=== PATIENT | female | born 1940 | race Caucasian/White ===

== ENCOUNTER 2020-01-24 09:41 | Emergency (ER) | payer OTHER ==
--- NOTE | 2020-01-24 11:07 | RAD REPORT ---
EXAM DESCRIPTION: RAD - Chest Single View - 01/24/2020 11:00 am CLINICAL HISTORY: DYSPNEA Chest pain. COMPARISON: No comparisons FINDINGS: Portable technique limits examination quality. The lungs are grossly clear. The heart is mildly enlarged in size. No displaced fractures.Degenerativ e changes are present both shoulders. IMPRESSION: No acute intrathoracic process suspected.
--- NOTE | 2020-01-24 11:07 | RAD REPORT ---
EXAM DESCRIPTION: CT - Head Brain Wo Cont - 01/24/2020 10:44 am CLINICAL HISTORY: MENTAL STATUS CHANGE Headache, drowsiness, confusion COMPARISON: Head Brain Wo Cont dated 05/25/2019 TECHNIQUE: All CT scans are performed using dose optimization technique as appropriate and may inclu de automated exposure control or mA/KV adjustment according to patient size. FINDINGS: No intracranial hemorrhage, hydrocephalus or extra-axial fluid collection.Gliosis is seen involving the left temporal lobe as well as the medial left occipital lobe.Post intervention changes in the left temporal lobe with aneurysm clip noted. The paranasal sinuses and mastoids are clear. Left temporal craniotomy. IMPRESSION: No acute intracranial abnormality.
--- OUTSIDE RECORDS SUMMARY | 2020-01-24 11:11 | XMS REPORT | Clinical Summary ---
:1940 Author Organization [facility] Address [address] [place] [address] Care Team Providers Name Role Phone Jose D Wen MD Primary Care Provider Allergies Active Allergy Reactions Severity Noted Date Comments Penicillins Swelling 11/19/2015 Whole body swel ling Medications Medication Sig Dispensed Refills Start Date End Date Status docusate sodium Take 100 mg by 0 Active (COLACE) 100 MG capsule mouth 2 (two) times a day. escitalopram (LEXAPRO) Take 10 mg by 0 Active 10 MG tablet mouth daily. gabapentin (NEURONTIN) Take 300 mg by 0 Active 300 MG capsule mouth 3 (three) times a day. meclizine (ANTIVERT) 25 Take 25 mg by 0 Active mg tablet mouth 3 (three) times a day as needed for dizziness. pantoprazole (PROTONIX) Take 40 mg by 0 Active 40 MG EC tablet mouth 2 (two) times a day. risperiDONE (RisperDAL) Take 2 mg by 0 Active 1 MG tablet mouth nightly. Active Problems Problem Noted Date Delirium 12/25/2015 Mucus plugging of bronchi 12/25/2015 Acute respiratory insufficiency, postoperative 016 Atelectasis 12/20/2015 Chronic a-fib s/p Left atrial appendage clipping 12/18 Obesity, Class II, BMI 35-39.9 11/27/2015 TIA (transient ischemic attack) 03/31/2008 h/o Intracranial Aneurysm s/p clipping 03/31/2008 Hypothyroidism HTN HLD h/o ICH (intracerebral hemorrhage) Cerebral infarction Surgical History Surgery Date Site/Laterality Comments BRAIN SURGERY Anuersym clip ou t HYSTERECTOMY CHOLECYSTECTOMY ATRIAL APPENDAGE LIGATION 12/19/2015 Chest/Left Proced ure: MICS, LEFT ATRIAL APPENDAGE CLIP; Surgeon: Herlinda Wilhelm; Location: [facility]; Ser vice: Cardiovascular; Laterality: Left; Medical devices from this surgery are in the Impla nts section. BRONCHOSCOPY 12/22/2015 Medical History Medical History Date Comments Htn Hypothyroidism h/o Intracranial Aneurysm s/p clipping 2008 Chronic a-fib s/p Left atrial appendage clipping 12/19/2015 h/o ICH (intracerebral hemorrhage) Hld TIA (transient ischemic attack) 2008 (L) [employer] Cva Social History Tobacco Use Types Packs/Day Years Used Date Never Smoker Alcohol Use Drinks/Week oz/Week Comments No Sex Assigned at Date Recorded Not on file Last Filed Vital Signs Not on file Plan of Treatment Health Maintenance Due Date Last Done Comments SHINGLES VACCINES (#1) 1989 65+ PNEUMOCOCCAL VACCINE (1 of 1 - PPSV23) 2004 INFLUENZA VACCINE 10/30/2019 Implants Implanted Type Area Lead Pressman Device Shelf Model / Identifier Expiration Serial / Date Lot System Xclsn Lt Atrl Apndg 50mm - [id number] Surgical N/A: N/A ATR ICURE 09/27/2016 PRO 150 / Implanted: 12/19/2015 at [facility] (Quantity not on file) Implants; / Expanders; +[id number] Extenders; Surgical Wires Results Not on fileafter 01/23/2019 Insurance Payer Benefit Plan / Subscriber ID Effective Dates Phone Addre ss Type Group HUMANA MEDICARE HUMANA MEDICARE [id number] 2008-Present PPO PPO/PFFS/ERS 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
--- OUTSIDE RECORDS SUMMARY | 2020-01-24 11:11 | XMS REPORT | Clinical Summary ---
:1939 Author Organization [facility] Address [address] [place] [address] Care Team Providers Name Role Phone Elizabet Zachariah Primary Care Provider Allergies Active Allergy Reactions Severity Noted Date Comments Penicillins Swelling 10/02/2013 Medications Medication Sig Dispensed Refills Start Date End Date Status diphenoxylate-atropine Take 1 tablet 0 Active (LOMOTIL) 2.5-0.025 mg by mouth 4 per tablet (four) times daily as needed for Diarrhea. pantoprazole (PROTONIX) Take 40 mg by 0 Active 40 MG tablet mouth daily. digoxin (LANOXIN) 0.125 Take 125 mcg by 0 Active MG tablet mouth daily. primidone (MYSOLINE) 50 Take 50 mg by 0 Active MG tablet mouth daily. metoprolol (LOPRESSOR) 50 Take 50 mg by 0 Active MG tablet mouth 2 (two) times daily. gabapentin (NEURONTIN) Take 300 mg by 0 Active 300 MG tablet mouth 3 (three) times daily. atorvastatin (LIPITOR) 40 Take 40 mg by 0 Active MG tablet mouth daily. risperiDONE (RISPERDAL) Take 0.25 mg by 0 Active 0.25 MG tablet mouth nightly. rOPINIRole (REQUIP) 0.25 Take 0.25 mg by 0 Active MG tablet mouth 3 (three) times daily. levothyroxine (SYNTHROID, Take 100 mcg by 0 Active LEVOTHROID) 100 MCG mouth daily. tablet escitalopram (LEXAPRO) 20 Take 20 mg by 0 Active MG tablet mouth daily. naproxen Take 220 mg by 0 Activ e (ALEVE,ANAPROX,MIDOL) 220 mouth 2 (two) MG tablet times daily with breakfast and dinner. acetaminophen (TYLENOL) Take 500 mg by 0 Active 500 MG tablet mouth every 6 (six) hours as needed for Pain. fenofibrate (TRICOR) 145 0 09/14/2013 Active MG tablet amLODIPine (NORVASC) 5 MG 5 mg daily. 0 09/08/2013 Active tablet carvedilol (COREG) 12.5 0 09/14/2013 Active MG tablet omeprazole (PRILOSEC) 40 0 07/29/2013 Active MG capsule hydrochlorothiazide Take 25 mg by 0 Active (HYDRODIURIL) 25 MG mouth daily. tablet sertraline (ZOLOFT) 50 MG Take 50 mg by 0 Active tablet mouth daily. Active Problems Problem Noted Date Atrial fibrillation by electrocardiogram 10/15/2013 Social History Tobacco Use Types Packs/Day Years Used Date Former Smoker Quit: 10/02/18 74 Alcohol Use Drinks/Week oz/Week Comments No Sex Assigned at Date Recorded Not on file Last Filed Vital Signs Not on file Plan of Treatment Not on file Results Not on fileafter 01/23/2019 Insurance Payer Benefit Plan / Subscriber ID Effective Phone Address T e Group Dates HUMANA - HUMANA [id number] 2008-Prese Maps Contracted MEDICARE MGD MEDICARE ADV nt CARE Advance Directives For more information, please contact: [phone] Code Status Date Activated Date Inactivated Comments Full Code 10/14/2013 1:03 AM 10/15/2013 4:49 PM This code status was determined by: Patient Full Code 10/02/2013 7:14 AM 10/02/2013 3:19 PM This code status was determined by: Patient
--- OUTSIDE RECORDS SUMMARY | 2020-01-24 11:12 | XMS REPORT | Continuity of Care Document ---
:1939 Author Organization [facility] t Address [address] [place] [address] Care Team Providers Name Role Phone Behzad AGUILA Primary Care Physician Doctor Unassigned, Name Attending Clinician Unavailable Melecio AGUILA, Gene Attending Clinician Problems Condition Condition Condition Status Onset Resolution Last Treating Co mments Source Name Details Category Date Date Treatment Clinician Date Delirium Delirium Disease Active [place] 12-24 Methodi 00:00: st 00 Mucus Mucus Disease Active [place] plugging plugging 12-24 Method i of bronchi of bronchi 00:00: st 00 Acute Acute Disease Active [place] respirator respirator 12-19 Me thodi y y 00:00: st insufficie insufficie 00 ncy, ncy, postoperat postoperat raj raj Atelectasi Atelectasi Disease Active [place] s s 12-19 Methodi 00:00: st 00 Chronic Chronic Disease Active [place] a-fib s/p a-fib s/p 12-18 Meth ru Left Left 00:00: st atrial atrial 00 appendage appendage clipping clipping Obesity, Obesity, Disease Active [place] Class II, Class II, 8-29 Meth ru BMI BMI 00:00: st 35-39.9 35-39.9 00 Atrial Atrial Disease Active [facility] fibrillati fibrillati 7-18 [facility] - on by 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 00 Ce nter diogram diogram TIA TIA Disease Active [place] (transient (transient 1-01 Me thodi ischemic ischemic 00:00: st attack) attack) 00 h/o h/o Disease Active [place] Intracrani Intracrani 1- Me thodi al al 00:00: st Aneurysm Aneurysm 00 s/p s/p clipping clipping Hypothyroi Hypothyroi Disease Active [place] dism dism Methodi st HTN HTN Disease Active [facility] Methodi st HLD HLD Disease Active [place] Methodi st h/o ICH h/o ICH Disease Active [place] (intracere (intracere Me thodi bral bral st hemorrhage hemorrhage ) ) Cerebral Cerebral Disease Active [place] infarction infarction Me thodi st Allergies, Adverse Reactions, Alerts Allergy Allergy Status Severity Reaction(s) Onset Inactive Treating Comm ents Source Name Type Date Date Clinician Penicill Propensi Active Swelling [facility] [place] ins ty to 8-21 body Methodi adverse 00:00: swelling st reaction 00 s to drug Penicill Propensi Active Swelling [facility] - adverse [facility]: Medical reaction 00 Center s Social History Social Habit Start Date Stop Date Quantity Comments Source Sex Assigned At [facility] Alcohol intake 2014-06-06 2014-06-06 Current [facility] es - 00:00:00 00:00:00 non-drinker of Medical Ce nter alcohol (finding) History of 1973-10-02 Current smoker [facility] es - tobacco use 00:00:00 Medical Aleksander r Smoking Status Start Date Stop Date Source Never smoker [facility] t Former smoker 2014-06-06 00:00:00 2014-06-06 00:00:00 [facility] Medications Ordered Filled Start Stop Current Ordering Indication Dosage Frequency Signature Comments Components Source Medication Medication Date Date Medication? Clinician (SIG) Name Name Terbinafine Terbinafine 2020-0 2020- Yes Kin Taylor 1 tablet [facility] HCl HCl 12-15 [facility] - 00:[facility]: [facility]:00 [facility] 00 :[facility] l [facility]pat[facility] ent Clinics docusate 2015-03 Yes 100mg Q.5D Take 100 [place] sodium 0-03 mg by Methodi (COLACE) 16:21: mouth 2 st 100 MG 14 (two) capsule times a day. escitalopra 2015-03 Yes 10mg QD Take 10 mg Abbott m (LEXAPRO) 0-03 by mouth [facility] ru 10 MG 16:21: daily. st tablet 14 gabapentin 2015-03 Yes 300mg Q.[id number] Take 300 [facility] (NEURONTIN) 0-03 [id number] mg by M ethodi 300 MG 16:21: 3D mouth 3 st capsule 14 (three) times a day. meclizine 2015-03 Yes 25mg Q.[id number] Take 25 mg [facility] (ANTIVERT) 0-03 [id number] by mouth 3 [facility] 25 mg 16:21: 3D (three) st tablet 14 times a day as needed for dizziness. pantoprazol 2015-03 Yes 40mg Q.5D Take 40 mg Abbott e 0-03 by mouth 2 [facility]i (PROTONIX) 16:21: (two) st 40 MG EC 14 times a tablet day. risperiDONE 2015-03 Yes 2mg QD Take 2 mg [place] (RisperDAL) 0-03 by mouth Meth ru 1 MG tablet 16:21: nightly. st 14 diphenoxyla Yes 1{tbl} Take [address] te-atropine 7-18 tablet by [facility] es - (LOMOTIL) 14:49: mouth 4 Medic al 2.5-0.025 44 (four) Center mg per times tablet daily as needed for Diarrhea. pantoprazol Yes 40mg QD Take [address] [facility] e 7-18 by mouth [facility] - (PROTONIX) 14:49: daily. Medic al 40 MG 44 Center tablet digoxin Yes 125ug QD Take 125 [facility] (LANOXIN) 7-18 mcg by [facility] - 0.125 MG 14:49: mouth Medical tablet 44 daily. Center primidone Yes 50mg QD Take [address] (MYSOLINE) 7-18 by mouth [facility] - 50 MG 14:49: daily. Medical tablet 44 Center metoprolol Yes 50mg Q.5D Take [address] (LOPRESSOR) 7-18 by mouth 2 Kizzy kes - 50 MG 14:49: (two) Medical tablet 44 times Center daily. gabapentin 2014-0 Yes 300mg Q.[id number] Take [address] (NEURONTIN) 7-18 [id number] mg by L ukes - 300 MG 14:49: 3D mouth 3 Medical tablet 44 (three) Center times daily. atorvastati 2013-0 Yes 40mg QD Take [address] [facility] n (LIPITOR) 7-18 by mouth Luke s - 40 MG 14:49: daily. Medical tablet 44 Center risperiDONE 0 Yes .25mg QD Take 0.[address] (RISPERDAL) 7-18 mg by [facility] - 0.25 MG 14:49: mouth Medical tablet 44 nightly. Center rOPINIRole 0 Yes .25mg Q.[id number] Take 0.[address] (REQUIP) 7-18 [id number] mg by Luke s - 0.25 MG 14:49: 3D mouth 3 Medical tablet 44 (three) Center times daily. levothyroxi Yes 100ug QD Take [address] ne 7-18 mcg by [facility] - (SYNTHROID, 14:49: mouth Medic al LEVOTHROID) 44 daily. Center 100 MCG tablet escitalopra Yes 20mg QD Take [address] m (LEXAPRO) 7-18 by mouth Luke s - 20 MG 14:49: daily. Medical tablet 44 Center naproxen 0 Yes 220mg Take [address] (ALEVE,ANAP 7-18 mg by [facility] - ALBERTO,MIDOL) 14:49: mouth 2 Medi manny 220 MG 44 (two) Center tablet times daily with breakfast and dinner. acetaminoph 20140 Yes 500mg Take [address] en 7-18 mg by [facility] - (TYLENOL) 14:49: mouth Medical 500 MG 44 every 6 Center tablet (six) hours as needed for Pain. hydrochloro 2014-0 Yes 25mg QD Take [address] thiazide 7-18 by mouth [facility] - (HYDRODIURI 14:49: daily. Medi manny L) 25 MG 44 Center tablet sertraline 0 Yes 50mg QD Take [address] (ZOLOFT) 50 7-18 by mouth Luke s - MG tablet 14:49: daily. Medica l 44 Center fenofibrate Yes [facility] (TRICOR) 6-17 [facility] - 145 MG 00:00: Medical tablet 00 Center carvedilol Yes [facility] (COREG) 6-17 [facility] - 12.5 MG 00:00: Medical tablet 00 Center amLODIPine Yes 5mg QD [address] (NORVASC) 5 6-11 daily. [facility] - MG tablet 00:00: Medical 00 [place] omeprazole Yes [facility] (PRILOSEC) 5-01 [facility] - 40 MG 00:00: Medical capsule 00 [place] + + Yes Sidney Taylor as [facility] Complete Complete [facility] directed [facility] es - Multi Multi Memoria l [facility] ent Clinics Metoprolol Metoprolol Yes Sidney Taylor TAKE [address] Tartrate Tartrate Guardado TABLET BY Kizzy kes - MOUTH Memoria TWICE A l DAY [facility] ent Clinics Carbidopa-L Carbidopa-L Yes Sidney Taylor TAKE [address] [facility] evodopa evodopa Guardado TABLET BY Luke s - MOUTH Memoria THREE l TIMES A [facility] DAY ent Clinics Levothyroxi Levothyroxi Yes Sidney Taylor TAKE [address] [facility] [facility] ne Sodium ne Sodium [facility] TABLET BY [facility] - MOUTH Memoria EVERY DAY l [facility] ent [facility]ics Citalopram Citalopram Yes Sidney Taylor TAKE [address] Hydrobromid Hydrobromid [facility] TABLET BY [facility] - e e MOUTH Memoria EVERY DAY l [facility] ent [facility]ics Donepezil Donepezil Yes Sidney Taylor TAKE [address] HCl HCl [facility] TABLET BY [facility] - MOUTH AT Memoria BEDTIME l [facility] ent [facility]ics Atorvastati Atorvastati Yes Sidney Taylor TAKE [address] [facility] [facility] n Calcium n Calcium [facility] TABLET BY [facility] - MOUTH Memoria EVERY DAY l AT NIGHT [facility]ics Oxybutynin Oxybutynin Yes Sidney Taylor TAKE [address] [facility] Chloride Chloride Guardado TABLET BY Kizzy kes - MOUTH Memoria EVERY DAY l [facility] ent Clinics Immunizations Ordered Filled Immunization Date Status Comments [facility] e Immunization Name Name FLUZONE HIGH DOSE FLUZONE HIGH DOSE 2019-12-[address] [facility] - OVER 65 OVER 65 00:00:00 [facility] Procedures This patient has no known procedures. Plan of Care Planned Activity Planned Date Details Comments Source Future Scheduled 2019-10-30 INFLUENZA VACCINE [place] [facility] 00:00:00 [code = INFLUENZA VACCINE] Future Scheduled 2004 65+ PNEUMOCOCCAL [facility] 00:00:00 VACCINE (1 of 1 - PPSV23) [code = 65+ PNEUMOCOCCAL VACCINE (1 of 1 - PPSV23)] Future Scheduled 1989 SHINGLES VACCINES (#1) [facility] 00:00:00 [code = SHINGLES VACCINES (#1)] Encounters Start End Encounter Admission Attending Care Care Encounter Source Date/Time Date/Time Type Type Clinicians Facility Department ID 2020-01-20 2020-01-20 Outpatient [facility] [id number] [facility] 2020-01-17 2020-01-17 [facility] [id number] [facility] 2020-01-13 2020-01-13 Out[facility] [id number] [facility] 2020-01-10 2020-01-10 Out[facility] [id number] [facility] 2020-01-10 2020-01-10 Out[facility] [id number] [facility] 2020-01-06 2020-01-06 Out[facility] [id number] [facility] 2020-01-04 2020-01-04 Out[facility] [id number] [facility] 2019-12-31 2019-12-31 Out[facility] [id number] [facility] 2019-12-27 2019-12-27 Out[facility] [id number] [facility] 2019-12-27 2019-12-27 Out[facility] [id number] [facility] 2019-12-22 2019-12-22 [id number] 2019-12-22 2019-12-22 [facility] [id number] [facility] 2019-12-22 2019-12-22 [facility] [id number] [facility] 2019-12-16 2019-12-16 [facility] [id number] [facility] 09:[facility]00 09:00:00 [facility] Medicine Outpati ent Clinics 2019-05-18 2019-05-18 Orders Doctor CHAIM [id number] 00:00:00 00:00:00 Only Unassigned, [place] [id number] [place] [facility] [id number] 2019-05-16 2019-05-16 RANJIT Cote [id number] 00:00:00 00:00:00 Kaleb Cunningham [id number] [place] [id number] Professio [id number] nal 092 Building Results This patient has no known results.
--- OUTSIDE RECORDS SUMMARY | 2020-01-24 11:12 | XMS REPORT ---
:1939 Author Organization [employer] Care Team Providers Name Role Phone Sidney Guardado Provider Role Unavailable Allergies, Adverse Reactions, Alerts Substance Reaction Event Type N.K.D.A. Info Not Available Non Drug Allergy Problems Problem Type Condition Code Onset Dates Condition Statu s Assessment Depression F32.9 Active Problem Urinary incontinence due to R39.81 Active cognitive impairment Problem Hyperlipidemia E78.5 Active Assessment Onychomycosis B35.1 Active Problem Hypothyroidism E03.9 Active Assessment Nail dystrophy L60.3 Active Assessment Physical deconditioning R53.81 Acti ve Problem Essential hypertension I10 Activ e Problem Dementia F03.90 Active Problem Overactive bladder N32.81 Active Problem Depression F32.9 Active Problem Obesity (BMI 30-39.9) E66.9 Active Assessment History of hemorrhagic I69.30 Activ e cerebrovascular accident (CVA) with residual deficit Assessment History of stroke Z86.73 Active Assessment Urinary incontinence due to R39.81 Active cognitive impairment Assessment Exertional shortness of breath R06.02 Active Assessment Overactive bladder N32.81 Active Assessment Hyperlipidemia E78.5 Active Assessment Obesity (BMI 30-39.9) E66.9 Active Assessment Dysuria R30.0 Active Assessment Hypothyroidism E03.9 Active Assessment Elevated blood pressure reading R03.0 Active without diagnosis of hypertension Assessment Encounter for administration of Z23 Active vaccine Assessment Dementia F03.90 Active Medications Medication Code Code Instructions Start End Status Dosage System Date Date Terbinafine HCl ND [id number] 250 MG Orally Dec 15, Mar 08, Activ e 1 tablet Once a day 2019 2019 + ND [id number] 0.267 & 373 MG Active as directed Complete Multi Orally Metoprolol ND [id number] 25 MG Oral Active TAKE 1 Tartrate TABLET BY MOUTH TWICE A DAY Carbidopa-Levodo ND [id number] 25-100 MG Oral Acti ve TAKE 1 pa TABLET BY MOUTH THREE TIMES A DAY Levothyroxine ND [id number] 112 MCG Oral Active T ANA 1 Sodium TABLET BY MOUTH EVERY DAY Citalopram [facility] [id number] 20 MG Oral Active TAKE 1 Hydrobromide TABLET BY MOUTH EVERY DAY Donepezil HCl [facility] [id number] 5 MG Oral Active TAKE 1 TABLET BY MOUTH AT BEDTIME Atorvastatin [facility] [id number] 40 MG Oral Active TAKE 1 Calcium TABLET BY MOUTH EVERY DAY AT NIGHT Oxybutynin [facility] [id number] 5 MG Oral Active TAKE 1 Chloride TABLET BY MOUTH EVERY DAY Results No Known Results Immunizations Vaccine Administration Date FLUZONE HIGH DOSE OVER 65 Dec 16, 2019 Summary Purpose [employer]ClinicalWorks Submission
--- OUTSIDE RECORDS SUMMARY | 2020-01-24 11:13 | XMS REPORT ---
:1940 Author Organization [facility] Address [address] [facility]. 300 [place] [address] Care Team Providers Name Role Phone Sidney Guardado Unavailable [phone] PROBLEMS Type Condition ICD9-CM [id number] Onset Condition SNOMED Code Notes Code Code Dates Status Problem Dementia F03.90 Active 14876655 Problem Obesity (BMI E66.9 Active 541056716 30-39.9) Problem Depression F32.9 Active 57008513 Problem Overactive bladder N32.81 Active 365976439 Problem Acquired E03.9 Active 997794578 hypothyroidism Problem Hypothyroidism E03.9 Active 64578373 Problem Hyperlipidemia E78.5 Active 91974153 Problem Essential I10 Active 94496758 hypertension Problem Urinary R39.81 Active 862420481 incontinence due to cognitive impairment ALLERGIES No Known Allergies ENCOUNTERS from 1940 to 2020-01-06 Encounter Location Date Provider Diagnosis [facility] 208 [facility] 200 08 Dec, 2019 Sidney Guardado Frequent urination Family Medicine [place], [place] R35.0 [address] IMMUNIZATIONS Vaccine Route Administration Date Status FLUZONE HIGH DOSE OVER 65 IM Intramuscular Dec 16, 2019 Admin istered SOCIAL HISTORY Tobacco Use: Social History Observation Description Date Details (start date - stop date) Former Smoker Sex Assigned At : Social History Observation Description Sex Assigned At Unknown PHQ9 Question Answer Notes Little interest or pleasure in doing things Several days Feeling down, depressed, or hopeless Several days Trouble falling or staying asleep or sleeping too much Not a t all Feeling tired or having little energy Not at all Poor appetite or overeating Not at all Feeling bad about yourself, or that you are a failure, or No t at all have let yourself or your family down Trouble concentrating on things, such as reading the Not at all newspaper or watching television Moving or speaking so slowly that other people could have No t at all noticed; or the opposite, being so fidgety or restless that you have been moving around a lot more than usual Total Score 2 Interpretation Minimal Depression Thoughts that you would be better off or of hurting Not at all yourself in some way Alcohol Screen Question Answer Notes Did you have a drink containing alcohol in the past year? No Points 0 Interpretation Negative Tobacco Use/Smoking Question Answer Notes Are you a former smoker REASON FOR REFERRAL No Information VITAL SIGNS No information MEDICATIONS Medication SIG (Take, Route, Start Date End Date Status Frequency, Duration) Levothyroxine Sodium 112 MCG TAKE 1 TABLET BY MOUTH Active EVERY DAY Oral for 90 Terbinafine HCl 250 MG 1 tablet Orally Once a 17 Nov, 2019 9 Dec, 2 020 Active day for 84 days + Complete Multi as directed Orally Active 0.267 & 373 MG Carbidopa-Levodopa 25-100 MG TAKE 1 TABLET BY MOUTH Active THREE TIMES A DAY Oral for 90 Citalopram Hydrobromide 20 TAKE 1 TABLET BY MOUTH Active MG EVERY DAY Oral for 30 Levothyroxine Sodium 112 MCG 1 capsule in the morning Dec, Active on an empty stomach Orally Once a day for 90 days Levothyroxine Sodium 112 MCG 1 capsule in the morning Active on an empty stomach Orally Once a day for 90 day(s) Atorvastatin Calcium 40 MG TAKE 1 TABLET BY MOUTH Active EVERY DAY AT NIGHT Oral for 90 Oxybutynin Chloride 5 MG TAKE 1 TABLET BY MOUTH Active EVERY DAY Oral for 90 Metoprolol Tartrate 25 MG TAKE 1 TABLET BY MOUTH Active TWICE A DAY Oral for 90 Donepezil HCl 5 MG TAKE 1 TABLET BY MOUTH AT Active BEDTIME Oral for 90 PROCEDURES No Information RESULTS No Results REASON FOR VISIT urine culture MEDICAL (GENERAL) HISTORY Type Description Date Medical History Depression Medical History Dementia Medical History Essential hypertension Medical History Hypothyroidism Medical History Hyperlipidemia Medical History Overactive bladder Surgical History hysterectomy, total 1967 Surgical History cholecystectomy 1969 Surgical History aneurysm repair 2008 Surgical History atrial appendage clipping Goals Section No Information Health Concerns No Information MEDICAL EQUIPMENT No Information MENTAL STATUS No Information FUNCTIONAL STATUS No Information ASSESSMENTS Encounter Date Diagnosis Notes Dec, Frequent urination (ICD-10 - R35.0) PLAN OF TREATMENT Medication Medication Name Sig Start Date Stop Date Levothyroxine Sodium 112 MCG 1 capsule in the morning on an empty stomach Orally Once a day for 90 day(s) Treatment Notes Test Name Order Date Urine Culture, Routine 2020-01-06 URINALYSIS AUTO W/O SCOPE ([id number]) 2020-01-06 Insurance Providers Payer Name Payer Payer Insured Patient Coverage Coverage End Address Phone Name Relationship to Start Date Silvestre e Insured [employer] [phone] Akbar Grace MEDICARE [id number] [facility] [address]
--- OUTSIDE RECORDS SUMMARY | 2020-01-24 11:13 | XMS REPORT ---
:1940 Author Organization [facility] Address [address] [facility]. 300 [place] [address] Care Team Providers Name Role Phone Sidney Guardado Unavailable [phone] PROBLEMS Type Condition ICD9-CM [id number] Onset Condition SNOMED Code Notes Code Code Dates Status Problem Dementia F03.90 Active 43309973 Problem Obesity (BMI E66.9 Active 250914119 30-39.9) Problem Depression F32.9 Active 36865835 Problem Overactive bladder N32.81 Active 850483737 Problem Acquired E03.9 Active 834931381 hypothyroidism Problem Hypothyroidism E03.9 Active 30927656 Problem Hyperlipidemia E78.5 Active 46376686 Problem Essential I10 Active 23817772 hypertension Problem Urinary R39.81 Active 820689961 incontinence due to cognitive impairment ALLERGIES No Known Allergies ENCOUNTERS from 1940 to 2020-01-04 Encounter Location Date Provider Diagnosis [facility] [address] [facility] Dec, Sidney Guardado Acq uired hypothyroidism Family Medicine [address] [place], [place] [address] IMMUNIZATIONS Vaccine Route Administration Date Status FLUZONE [...] Information RESULTS No Results REASON FOR VISIT No Information MEDICAL (GENERAL) HISTORY Type Description Date Medical History Depression Medical History Dementia Medical History Essential hypertension Medical History Hypothyroidism Medical History Hyperlipidemia Medical History Overactive bladder Surgical History hysterectomy, total 1966 Surgical History cholecystectomy 1970 Surgical History aneurysm repair 2008 Surgical History atrial appendage clipping Goals Section No Information Health Concerns No Information MEDICAL EQUIPMENT No Information MENTAL STATUS No Information FUNCTIONAL STATUS No Information ASSESSMENTS Encounter Date Diagnosis Notes Dec, Acquired hypothyroidism (ICD-10 - E03.9) PLAN OF TREATMENT Medication Medication Name Sig Start Date Stop Date Levothyroxine Sodium 112 MCG 1 capsule in the morning on an empty stomach Orally Once a day for 90 day(s) Insurance Providers Payer Name Payer Payer Insured Patient Coverage Coverage End Address Phone Name Relationship to Start Date Silvestre e Insured [employer] [phone] Akbar Grace MEDICARE [id number] [address]
--- OUTSIDE RECORDS SUMMARY | 2020-01-24 11:13 | XMS REPORT ---
:[address] [facility] Address 210 [facility]. 300 [place] [address] Care Team Providers Name Role Phone Sidney Guardado Unavailable [phone] PROBLEMS Type Condition ICD9-CM [id number] Onset Condition SNOMED Code Notes Code Code Dates Status Problem Dementia F03.90 Active 69503878 Problem Obesity (BMI E66.9 Active 602195179 30-39.9) Problem Depression F32.9 Active 68650399 Problem Overactive bladder N32.81 Active 907485883 Problem Acquired E03.9 Active 117119121 hypothyroidism Problem Hypothyroidism E03.9 Active 34917975 Problem Hyperlipidemia E78.5 Active 29132137 Problem Essential I10 Active 25468775 hypertension Problem Urinary R39.81 Active 960181755 incontinence due to cognitive impairment ALLERGIES No Known Allergies ENCOUNTERS from 1940 to 2019-12-31 Encounter Location Date Provider Diagnosis [facility] 208 [facility] Dec, Sidney Guardado Acq uired hypothyroidism Family Medicine 200 [place], [place] [id number] IMMUNIZATIONS Vaccine Route Administration Date Status FLUZONE [...] Start Date End Date Status Frequency, Duration) Terbinafine HCl 250 MG 1 tablet Orally Once a 17 Nov, 2019 9 Dec, 2 020 Active day for 84 days Oxybutynin Chloride 5 MG TAKE 1 TABLET BY MOUTH Active EVERY DAY Oral for 90 Levothyroxine Sodium 112 MCG TAKE 1 TABLET BY MOUTH Active EVERY DAY Oral for 90 Donepezil HCl 5 MG TAKE 1 TABLET BY MOUTH AT Active BEDTIME Oral for 90 Citalopram Hydrobromide 20 TAKE 1 TABLET BY MOUTH Active MG EVERY DAY Oral for 30 Carbidopa-Levodopa 25-100 MG TAKE 1 TABLET BY MOUTH Active THREE TIMES A DAY Oral for 90 + Complete Multi as directed Orally Active 0.267 & 373 MG Atorvastatin Calcium 40 MG TAKE 1 TABLET BY MOUTH Active EVERY DAY AT NIGHT Oral for 90 Metoprolol Tartrate 25 MG TAKE 1 TABLET BY MOUTH Active TWICE A DAY Oral for 90 Levothyroxine Sodium 112 MCG 1 capsule in the morning Dec, Active on an empty stomach Orally Once a day for 90 days PROCEDURES No Information RESULTS No Results REASON FOR VISIT No Information MEDICAL (GENERAL) HISTORY Type Description Date Medical History Depression Medical History Dementia Medical History Essential hypertension Medical History Hypothyroidism Medical History Hyperlipidemia Medical History Overactive bladder Surgical History hysterectomy, total 1967 Surgical History cholecystectomy 1970 Surgical History aneurysm [...] 1 capsule in the morning on an 2019 empty stomach Orally Once a day for 90 days Treatment Notes Assessment Notes Clinical Notes Acquired hypothyroidism pt request refill of medication. Pt not seen. Insurance Providers Payer Name Payer Payer Insured Patient Coverage Coverage End Address Phone Name Relationship to Start Date Silvestre e Insured [employer] [phone] Akbar Grace MEDICARE [id number] [address] [address]
--- OUTSIDE RECORDS SUMMARY | 2020-01-24 11:13 | XMS REPORT ---
:1940 Author Organization [facility] Address 210 [facility] 300 [place] [address] Care Team Providers Name Role Phone Sidney Guardado Unavailable [phone] PROBLEMS Type Condition ICD9-CM [id number] Onset Condition SNOMED Code Notes Code Code Dates Status Problem Dementia F03.90 Active 47497474 Problem Obesity (BMI E66.9 Active 474210200 30-39.9) Problem Depression F32.9 Active 97768352 Problem Overactive bladder N32.81 Active 733200521 Problem Acquired E03.9 Active 571798319 hypothyroidism Problem Hypothyroidism E03.9 Active 41067639 Problem Hyperlipidemia E78.5 Active 21418234 Problem Essential I10 Active 35216602 hypertension Problem Urinary R39.81 Active 804911065 incontinence due to cognitive impairment ALLERGIES No Known Allergies ENCOUNTERS from 1940 to 2020-01-10 Encounter Location Date Provider Diagnosis [facility] 208 [facility] 200 12 Dec, 2019 Sidney Guardado Acute cystitis Family Medicine [place], [place] without hematuria [phone] N30.00 IMMUNIZATIONS Vaccine Route Administration Date Status FLUZONE [...] Start Date End Date Status Frequency, Duration) Citalopram Hydrobromide 20 TAKE 1 TABLET BY MOUTH Active MG EVERY DAY Oral for 30 Levothyroxine Sodium 112 MCG 1 capsule in the morning Dec, Active on an empty stomach Orally Once a day for 90 days Levothyroxine Sodium 112 MCG 1 capsule in the morning Active on an empty stomach Orally Once a day for 90 day(s) Metoprolol Tartrate 25 MG TAKE 1 TABLET BY MOUTH Active TWICE A DAY Oral for 90 Levothyroxine Sodium 112 MCG TAKE 1 TABLET BY MOUTH Active EVERY DAY Oral for 90 Carbidopa-Levodopa 25-100 MG TAKE 1 TABLET BY MOUTH Active THREE TIMES A DAY Oral for 90 Oxybutynin Chloride 5 MG TAKE 1 TABLET BY MOUTH Active EVERY DAY Oral for 90 + Complete Multi as directed Orally Active 0.267 & 373 MG Atorvastatin Calcium 40 MG TAKE 1 TABLET BY MOUTH Active EVERY DAY AT NIGHT Oral for 90 Donepezil HCl 5 MG TAKE 1 TABLET BY MOUTH Active AT BEDTIME Oral for 90 Terbinafine HCl 250 MG 1 tablet Orally Once a 17 Nov, 2019 9 Dec, 2 020 Active day for 84 days Nitrofurantoin Monohyd Macro 1 capsule Orally bid for Dec, Dec, Active 100 MG 5 days PROCEDURES No Information RESULTS No Results [...] Information ASSESSMENTS Encounter Date Diagnosis Notes Dec, Acute cystitis without hematuria (ICD-10 - N30.00) PLAN OF TREATMENT Medication Medication Name Sig Start Date Stop Date Nitrofurantoin Monohyd Macro 100 1 capsule Orally bid for 5 12 O 2019Dec, MG days Treatment Notes Assessment Notes Clinical Notes Acute cystitis without hematuria UA showed postive LE with U C showing 100K citrobacter CFU with sensitivity to multiple abx. pt notified regarding results and medication sent to pharmacy. Insurance Providers Payer Name Payer Payer Insured Patient Coverage Coverage End Address Phone Name Relationship to Start Date Silvestre e Insured [employer] [phone] Lesly,Gene self MEDICARE [id number] [facility] [address]
--- OUTSIDE RECORDS SUMMARY | 2020-01-24 11:13 | XMS REPORT ---
:1940 Author Organization [facility] Address 210 [facility] 300 [place] [address] Care Team Providers Name Role Phone Sidney Guardado Unavailable [phone] PROBLEMS Type Condition ICD9-CM [id number] Onset Condition SNOMED Code Notes Code Code Dates Status Problem Urinary R39.81 Active 331688202 incontinence due to cognitive impairment Problem Overactive bladder N32.81 Active 211044950 Problem Hyperlipidemia E78.5 Active 71930293 Problem Essential I10 Active 26659038 hypertension Problem Dementia F03.90 Active 79757481 Problem Obesity (BMI E66.9 Active 293604036 30-39.9) Problem Depression F32.9 Active 56941781 Problem Hypothyroidism E03.9 Active 52301725 ALLERGIES No Known Allergies ENCOUNTERS from 1940 to 2019-12-29 Encounter Location Date Provider Diagnosis [facility] 210 [facility] 300 28 Nov, 2019 Sidney Guardado Medicare annual Family Medicine [place], [place] wellness visit, [phone] subsequent Z00. 00 IMMUNIZATIONS Vaccine Route Administration Date Status FLUZONE [...] REASON FOR REFERRAL No Information VITAL SIGNS Height 63 in Nov, Weight 207.0 lbs Nov, Temperature 98.1 degrees Fahrenheit Nov, BMI 36.66 kg/m2 Nov, Oximetry 94 % Nov, Blood pressure systolic 148 mm Hg Nov, Blood pressure diastolic 83 mm Hg Nov, MEDICATIONS Medication SIG (Take, Route, Start Date End Date Status Frequency, Duration) Citalopram Hydrobromide 20 TAKE 1 TABLET BY MOUTH Active MG EVERY DAY Oral for 30 Levothyroxine Sodium 112 MCG TAKE 1 TABLET BY MOUTH Active EVERY DAY Oral for 90 Oxybutynin Chloride 5 MG TAKE 1 TABLET BY MOUTH Active EVERY DAY Oral for 90 Metoprolol Tartrate 25 MG TAKE 1 TABLET BY MOUTH Active TWICE A DAY Oral for 90 + Complete Multi as directed Orally Active 0.267 & 373 MG Donepezil HCl 5 MG TAKE 1 TABLET BY MOUTH AT Active BEDTIME Oral for 90 Terbinafine HCl 250 MG 1 tablet Orally Once a 17 Nov, 2019 9 Dec, 2 020 Active day for 84 days Atorvastatin Calcium 40 MG TAKE 1 TABLET BY MOUTH Active EVERY DAY AT NIGHT Oral for 90 Carbidopa-Levodopa 25-100 MG TAKE 1 TABLET BY MOUTH Active THREE TIMES A DAY Oral for 90 PROCEDURES No Information RESULTS No Results REASON FOR VISIT 1 Medicare Wellness Exam [phone] MEDICAL (GENERAL) HISTORY Type Description Date Medical [...] No Information ASSESSMENTS Encounter Date Diagnosis Notes Nov, Medicare annual wellness visit, daniela garcía (ICD-10 - Z00.00) PLAN OF TREATMENT Next Appt Details SUBSEQUENT ANNUAL WELLNESS VISIT 1 YEAR Reason: Provider Name:Sidney Guardado, 2019-12-31 01 :00:00 PM, [address], [address], [place], [address], Insurance Providers Payer Name Payer Payer Insured Patient Coverage Coverage End Address Phone Name Relationship to Start Date Silvestre e Insured [employer] [phone] Akbar Grace self MEDICARE [id number] [address] [facility] [address]
--- OUTSIDE RECORDS SUMMARY | 2020-01-24 11:14 | XMS REPORT ---
:[address] [facility] Address 210 [facility] 300 [place] [address] Care Team Providers Name Role Phone Sidney Guardado Unavailable [phone] PROBLEMS Type Condition ICD9-CM [id number] Onset Condition SNOMED Code Notes Code Code Dates Status Problem Dementia F03.90 Active 28938806 Problem Obesity (BMI E66.9 Active 438400555 30-39.9) Problem Depression F32.9 Active 84038514 Problem Overactive bladder N32.81 Active 961417792 Problem Acquired E03.9 Active 695384972 hypothyroidism Problem Hypothyroidism E03.9 Active 20680306 Problem Hyperlipidemia E78.5 Active 21323470 Problem Essential I10 Active 37668592 hypertension Problem Urinary R39.81 Active 074322271 incontinence due to cognitive impairment ALLERGIES No Known Allergies ENCOUNTERS from 1940 to 2020-01-11 Encounter Location Date Provider Diagnosis [facility] 208 [facility] 200 [place] 12 Dec, 2019 [place] [address] IMMUNIZATIONS Vaccine Route Administration Date Status FLUZONE [...] Information RESULTS No Results REASON FOR VISIT Urine Culture MEDICAL (GENERAL) HISTORY Type Description Date Medical [...] No Information FUNCTIONAL STATUS No Information ASSESSMENTS No Information PLAN OF TREATMENT Medication Medication Name Sig Start Date Stop Date Nitrofurantoin Monohyd Macro 100 1 capsule Orally bid for 5 12 O 2019Dec, MG days Insurance Providers Payer Name Payer Payer Insured Patient Coverage Coverage End Address Phone Name Relationship to Start Date Silvestre e Insured AETNA [phone] Akbar Grace MEDICARE [id number] [address] [address]
--- OUTSIDE RECORDS SUMMARY | 2020-01-24 11:14 | XMS REPORT ---
:1940 Author Organization [facility] Address 210 [facility] 300 [place] [address] Care Team Providers Name Role Phone Sidney Guardado Unavailable [phone] PROBLEMS Type Condition ICD9-CM UIB34-YL Onset Condition SNOMED Code Notes Code Code Dates Status Problem Dementia F03.90 Active 06666164 Problem Obesity (BMI E66.9 Active 462450563 30-39.9) Problem Depression F32.9 Active 50171764 Problem Overactive bladder N32.81 Active 575043673 Problem Acquired E03.9 Active 980866462 hypothyroidism Problem Hypothyroidism E03.9 Active 34791155 Problem Hyperlipidemia E78.5 Active 95865819 Problem Essential I10 Active 52720571 hypertension Problem Urinary R39.81 Active 122441908 incontinence due to cognitive impairment ALLERGIES No Known Allergies ENCOUNTERS from 1940 to 2020-01-20 Encounter Location Date Provider Diagnosis [facility] 208 [facility] 200 [place] Dec, [place] [address] IMMUNIZATIONS Vaccine Route Administration Date Status FLUZONE [...] Start Date End Date Status Frequency, Duration) Atorvastatin Calcium 40 MG TAKE 1 TABLET BY MOUTH Active EVERY DAY AT NIGHT Oral for 90 Donepezil HCl 5 MG TAKE 1 TABLET BY MOUTH AT Active BEDTIME Oral for 90 Terbinafine HCl 250 MG 1 tablet Orally Once a 17 Nov, 2019 Dec, 2 020 Active day for 84 days + Complete Multi as directed Orally Active 0.267 & 373 MG Levothyroxine Sodium 112 MCG 1 capsule in the morning Dec, Active on an empty stomach Orally Once a day for 90 days Levothyroxine Sodium 112 MCG TAKE 1 TABLET BY MOUTH Active EVERY DAY Oral for 90 Citalopram Hydrobromide 20 TAKE 1 TABLET BY MOUTH Active MG EVERY DAY Oral for 30 Metoprolol Tartrate 25 MG TAKE 1 TABLET BY MOUTH Active TWICE A DAY Oral for 90 days Carbidopa-Levodopa 25-100 MG TAKE 1 TABLET BY MOUTH Active THREE TIMES A DAY Oral for 90 Oxybutynin Chloride 5 MG TAKE 1 TABLET BY MOUTH Active EVERY DAY Oral for 90 Levothyroxine Sodium 112 MCG 1 capsule in the morning Active on an empty stomach Orally Once a day for 90 day(s) PROCEDURES No Information RESULTS No Results REASON FOR VISIT Urine Culture MEDICAL (GENERAL) HISTORY Type Description Date Medical History Depression Medical History Dementia Medical History Essential hypertension Medical History Hypothyroidism Medical History Hyperlipidemia Medical History Overactive bladder Surgical History hysterectomy, total 1966 Surgical History cholecystectomy 1969 Surgical History aneurysm repair 2008 Surgical History atrial appendage clipping Goals Section No Information Health Concerns No Information MEDICAL EQUIPMENT No Information MENTAL STATUS No Information FUNCTIONAL STATUS No Information ASSESSMENTS No Information PLAN OF TREATMENT Medication Medication Name Sig Start Date Stop Date Metoprolol Tartrate 25 MG TAKE 1 TABLET BY MOUTH TWICE A DAY Oral for 90 days Insurance Providers Payer Name Payer Payer Insured Patient Coverage Coverage End Address Phone Name Relationship to Start Date Silvestre e Insured AETNA [phone] Akbar Grace MEDICARE [id number] [address] [address]
--- OUTSIDE RECORDS SUMMARY | 2020-01-24 11:14 | XMS REPORT ---
:1940 Author Organization [facility] Address 210 [facility]. 300 [place] [address] Care Team Providers Name Role Phone Sidney Guardado Unavailable [phone] PROBLEMS Type Condition ICD9-CM MZE84-VP Onset Condition SNOMED Code Notes Code Code Dates Status Problem Dementia F03.90 Active 73588093 Problem Obesity (BMI E66.9 Active 424053371 30-39.9) Problem Depression F32.9 Active 11525627 Problem Overactive bladder N32.81 Active 004806071 Problem Acquired E03.9 Active 561887429 hypothyroidism Problem Hypothyroidism E03.9 Active 34518558 Problem Hyperlipidemia E78.5 Active 14819090 Problem Essential I10 Active 98646531 hypertension Problem Urinary R39.81 Active 719420076 incontinence due to cognitive impairment ALLERGIES No Known Allergies ENCOUNTERS from 1940 to 2020-01-17 Encounter Location Date Provider Diagnosis [facility] 208 [facility] 200 19 Dec, 2019 Sidney Guardado Abnormal urinalysis Family Medicine [place], [place] R82.90 [address] IMMUNIZATIONS Vaccine Route Administration Date Status FLUZONE [...] 1 tablet Orally Once a 17 Nov, 2019Feb, 2 020 Active day for 84 days [...] RESULTS No Results REASON FOR VISIT Urine MEDICAL (GENERAL) HISTORY Type Description Date Medical [...] Information ASSESSMENTS Encounter Date Diagnosis Notes Dec, Abnormal urinalysis (ICD-10 - R82.90) PLAN OF TREATMENT Medication Medication Name Sig Start Date Stop Date Metoprolol Tartrate 25 MG TAKE 1 TABLET BY MOUTH TWICE A DAY Oral for 90 days Treatment Notes Test Name Order Date Urine Culture, Routine 2020-01-17 URINALYSIS AUTO W/O SCOPE ([id number]) 2020-01-17 Insurance Providers Payer Name Payer Payer Insured Patient Coverage Coverage End Address Phone Name Relationship to Start Date Silvestre e Insured [employer] [phone] Akbar Grace MEDICARE [id number] [address] [phone]
--- OUTSIDE RECORDS SUMMARY | 2020-01-24 11:14 | XMS REPORT ---
:1940 Author Organization [facility] Address [address] [facility] [address] [place] [address] Care Team Providers Name Role Phone Sidney Guardado Unavailable [phone] PROBLEMS Type Condition ICD9-CM [id number] Onset Condition SNOMED Code Notes Code Code Dates Status Problem Dementia F03.90 Active 14542185 Problem Obesity (BMI E66.9 Active 880964319 30-39.9) Problem Depression F32.9 Active 32336900 Problem Overactive bladder N32.81 Active 162242091 Problem Acquired E03.9 Active 662915654 hypothyroidism Problem Hypothyroidism E03.9 Active 48085768 Problem Hyperlipidemia E78.5 Active 83907949 Problem Essential I10 Active 89646047 hypertension Problem Urinary R39.81 Active 209459107 incontinence due to cognitive impairment ALLERGIES No Known Allergies ENCOUNTERS from 1940 to 2020-01-14 Encounter Location Date Provider Diagnosis [facility] [address] [facility] [address] Dec, 2019 [place] [address] IMMUNIZATIONS Vaccine Route Administration Date Status FLUZONE [...] EVERY DAY AT NIGHT Oral for 90 Citalopram Hydrobromide 20 TAKE 1 TABLET BY MOUTH Active MG EVERY DAY Oral for 30 + Complete Multi as directed Orally Active 0.267 & 373 MG Donepezil HCl 5 MG TAKE 1 TABLET BY MOUTH Active AT BEDTIME Oral for 90 Levothyroxine Sodium 112 MCG 1 capsule in the morning Dec, Active on an empty stomach Orally Once a day for 90 days Levothyroxine Sodium 112 MCG TAKE 1 TABLET BY MOUTH Active EVERY DAY Oral for 90 Nitrofurantoin Monohyd Macro 1 capsule Orally bid for Dec, Dec, Active 100 MG 5 days Metoprolol Tartrate 25 MG TAKE 1 TABLET BY MOUTH Active TWICE A DAY Oral for 90 days Terbinafine HCl 250 MG 1 tablet Orally Once a 17 Nov, 2019 9 Dec, 2 020 Active day for 84 days Carbidopa-Levodopa 25-100 MG TAKE 1 TABLET BY MOUTH Active THREE TIMES A DAY Oral for 90 Oxybutynin Chloride 5 MG TAKE 1 TABLET BY MOUTH Active EVERY DAY Oral for 90 Levothyroxine Sodium 112 MCG 1 capsule in the morning Active on an empty stomach Orally Once a day for 90 day(s) PROCEDURES No Information RESULTS No Results REASON FOR VISIT Rx refill MEDICAL (GENERAL) HISTORY Type Description Date Medical [...] for 5 12 O 2019Dec, MG days Metoprolol Tartrate 25 MG TAKE 1 TABLET BY MOUTH TWICE A DAY Oral for 90 days Insurance Providers Payer Name Payer Payer Insured Patient Coverage Coverage End Address Phone Name Relationship to Start Date Silvestre e Insured [employer] [phone] Akbar Grace self MEDICARE [id number] [address]
[2020-01-24 11:29] LABS: Protime INR 1.06
[2020-01-24 11:49] LABS: ALT/SGPT 9 U/L (12-78); AST/SGOT 22 U/L (15-37); Albumin 3.8 g/dL (3.4-5.0); Alkaline Phosphatase 84 U/L (45-117); BUN Blood Urea Nitrogen 10 mg/dL (7-18); Bicarbonate 30 mmol/L (21-32); Bilirubin Direct 0.1 mg/dL (0-0.2); Bilirubin Total 0.5 mg/dL (0.2-1.0); Glucose Level 101 mg/dL (74-106); Magnesium 2.1 mg/dL (1.8-2.4); NT PRO-BNP 1950 pg/mL (<450); Potassium 4.3 mmol/L (3.5-5.1); Protein, Total 7.8 g/dL (6.4-8.2); Sodium Level 138 mmol/L (136-145); Troponin (Emerg Dept Use Only) < 0.02 ng/mL (0.0-0.045)
[2020-01-24 12:20] LABS: Urine Blood TRACE (NEG); Urine Glucose NEGATIVE (NEG); Urine Protein NEGATIVE (NEG)
[2020-01-24 12:21] LABS: Urine Bacteria 20-50 /HPF (<20); Urine Culture Reflex Order REFLEXED; Urine RBC <5 /HPF (NONE SEEN)
[2020-01-24 12:21] LABS: Absolute Lymphocytes (CBC) 2.4 K/uL (0.7-4.9); Basophils % 1.3 % (0-1.3); Lymphocytes % 33.2 % (15.3-44.8); MPV 8.8 fL (7.6-11.3); RBC Red Blood Cell Count 4.15 M/uL (3.86-4.86)
--- NOTE | 2020-01-24 13:04 | ER ---
Nurse's Notes [facility] Name: Kari Grace Age: 79 yrs Sex: Female : 1940 Arrival Date: 01/24/2020 Time: 09:42 Bed 2 Private MD: Diagnosis: Altered mental status, unspecified;Acute cystitis Presentation: 01/23 10:10 Chief complaint: Pt's daughter states "she's been confused for a month now and it keeps aa5 getting worse and they keep treating her fot UTIs and the last time it was tested was on and her urine was clear". 10:10 Coronavirus screen: Client denies travel out of the [place] in the last 14 days. At this aa5 time, the client does not indicate any symptoms associated with coronavirus-19. Ebola Screen: Patient negative for fever greater than or equal to 101.5 degrees Fahrenheit, and additional compatible Ebola Virus Disease symptoms. Initial Sepsis Screen: Does the patient meet any 2 criteria? No. Patient's initial sepsis screen is negative. Does the patient have a suspected source of infection? No. Patient's initial sepsis screen is negative. Risk Assessment: Do you want to hurt yourself or someone else? Patient reports no desire to harm self or others. Onset of symptoms was December 2019. 10:10 Acuity: JUNI 3 aa5 10:10 Method Of Arrival: Wheelchair aa5 Historical: - Allergies: 10:10 PENICILLINS; aa5 - Home Meds: 10:42 metoprolol tartrate 25 mg Oral tab 1 tab 2 times per day [Active]; atorvastatin 40 mg jl7 oral tab 1 tab once daily [Active]; levothyroxine 112 mcg tab 1 tab once daily [Active]; citalopram 20 mg tab 1 tab once daily [Active]; oxybutynin chloride 5 mg Oral tr24 1 tab once daily [Active]; donepezil 5 mg oral TbDL 1 tab once daily [Active]; carbidopa-levodopa 25-100 mg Oral TbER 1 tab 3 times per day [Active]; - PMHx: 10:10 TIA; Brain Bleed; aa5 10:45 CVA; 2018; Dementia; brain aneurysm; tw2 - PSHx: 10:45 arterial appendage clipping brain 2016; tw2 - Immunization history:: Adult Immunizations up to date. - Social history:: Smoking status: Patient denies any tobacco usage or history of. Screenin:24 Abuse screen: Denies threats or abuse. Nutritional screening: No deficits noted. tw2 Tuberculosis screening: No symptoms or risk factors identified. Fall Risk Secondary diagnosis (15 points) impaired mobility. Assessment: 10:13 Reassessment: pt still in triage at this time. tw2 10:20 General: Appears in no apparent distress. obese, Behavior is calm, cooperative, tw2 appropriate for age. Pain: Denies pain. Neuro: Level of Consciousness is awake, obeys commands, Oriented to person. Cardiovascular: Heart tones S1 S2 Patient's skin is warm and dry. Respiratory: Airway is patent Respiratory effort is even, unlabored, Respiratory pattern is regular, symmetrical, Breath sounds are clear bilaterally. GI: No signs and/or symptoms were reported involving the gastrointestinal system. Abdomen is round non-distended, obese, Bowel sounds present X 4 quads. : Parent/caregiver report the patient having pt spouse states "she has frequent urinary tract infections". EENT: No signs and/or symptoms were reported regarding the EENT system. Derm: No signs and/or symptoms reported regarding the dermatologic system. Skin is fragile, is thin, Skin is dry. Musculoskeletal: Range of motion: intact in all extremities. 10:26 Reassessment: provider at bedside at this time. tw2 14:12 Reassessment: Patient appears in no apparent distress at this time. No changes from tw2 previously documented assessment. Patient and/or family updated on plan of care and expected duration. Pain level reassessed. Vital Signs: 10:10 BP 129 / 97; Pulse 73; Resp 20 S; Temp 98.2(O); Pulse Ox 95% on R/A; aa5 11:18 BP 146 / 88; Pulse 71; Resp 16; Pulse Ox 96% on R/A; tw2 12:34 BP 143 / 79; Pulse 59; Resp 18; Temp 97.9(O); Pulse Ox 97% on R/A; mh5 13:30 BP 152 / 88; Pulse 69; Resp 17; Pulse Ox 95% on R/A; tw2 14:12 BP 148 / 72; Pulse 88; Resp 16; Pulse Ox 99% on R/A; tw2 ED Course: 09:42 Patient arrived in ED. ag5 10:06 Charisse Jasmine, RN is Primary Nurse. tw2 10:09 Deepak Echevarria PA is PHCP. jr8 10:09 Zain Adams MD is Attending Physician. jr8 10:24 Bed in low position. Call light in reach. Side rails up X2. Adult w/ patient. Cardiac tw2 monitor on. Pulse ox on. NIBP on. Warm blanket given. Pillow given. 10:24 Arm band placed on. tw2 10:29 Triage completed. aa5 10:44 CT Head Brain wo Cont In Process Unspecified. EDMS 11:00 XRAY Chest (1 view) In Process Unspecified. EDMS 11:12 Missed attempt(s): 20 gauge in right forearm. Bleeding controlled, band aid applied, tw2 catheter tip intact. Missed attempt(s): 22 gauge in right forearm. blood collected. Bleeding controlled, band aid applied, catheter tip intact. 11:45 Urine Microscopic Only Sent. 5 14:22 No provider procedures requiring assistance completed. tw2 14:22 Patient did not have IV access during this emergency room visit. pt did not have iv tw2 during this ER visit. Administered Medications: 14:00 Not Given (md aware - no iv at this time): Rocephin 2 grams IV at calculated rate once; tw2 Given slow IV push per pharmarcy instructions 14:00 Drug: Rocephin (cefTRIAXone) 1 grams Route: IM; Site: left deltoid; tw2 14:13 Follow up: Response: No adverse reaction tw2 Outcome: 13:03 Discharge ordered by . 8 14:22 Discharged to home via wheelchair, with family. tw2 14:22 Condition: stable 14:22 Discharge instructions given to patient, family, Instructed on discharge instructions, follow up and referral plans. medication usage, Demonstrated understanding of instructions, follow-up care, medications, Prescriptions given X 1. 14:23 Patient left the ED. tw2 Addendum: 01/27/2020 07:16 Addendum: Culture Results: Positive urine culture. No further action required. Bacteria e b sensitive to prescribed antibiotic. Signatures: Dispatcher [employer] EDMS Nahomy Wing RN RN aa5 Deepak Echevarria PA PA jr8 Charisse Jasmine RN RN tw2 Julia Corbin 5 Jairo Mckeon RN RN jl7 Sima Valedz Ajare 5
--- NOTE | 2020-01-24 13:04 | EDPHYS ---
Physician Documentation [facility] Name: Kari Grace Age: 79 yrs Sex: Female : 1940 Arrival Date: 01/24/2020 Time: 09:42 Bed 2 Private MD: BRIANNA Physician Zain Adams HPI: 01/23 12:19 This 79 yrs old Female presents to ER via Wheelchair with complaints of jr8 Urinary Problem, Confusion. 12:19 The patient presents for progressive confusion/disorientation over the past 2 months. jr8 Family reports that the patient has a history of UTI's, but had normal UA results at her PCP visit 1 week ago. They state that she has been wandering around the house, talking to herself, and become more forgetful. They report a history of a brain bleed and multiple TIA's taking place 4-6 years ago. Denies fever, chest pain, or any other complaints.. Historical: - Allergies: 10:10 PENICILLINS; aa5 - Home Meds: 10:42 metoprolol tartrate 25 mg Oral tab 1 tab 2 times per day [Active]; atorvastatin 40 mg jl7 oral tab 1 tab once daily [Active]; levothyroxine 112 mcg tab 1 tab once daily [Active]; citalopram 20 mg tab 1 tab once daily [Active]; oxybutynin chloride 5 mg Oral tr24 1 tab once daily [Active]; donepezil 5 mg oral TbDL 1 tab once daily [Active]; carbidopa-levodopa 25-100 mg Oral TbER 1 tab 3 times per day [Active]; - PMHx: 10:10 TIA; Brain Bleed; aa5 10:45 CVA; 2018; Dementia; brain aneurysm; tw2 - PSHx: 10:45 arterial appendage clipping brain 2016; tw2 - Immunization history:: Adult Immunizations up to date. - Social history:: Smoking status: Patient denies any tobacco usage or history of. ROS: 12:17 Unable to obtain ROS due to baseline dementia. jr8 Exam: 12:17 Eyes: Pupils equal round and reactive to light, extra-ocular motions intact. Lids and jr8 lashes normal. Conjunctiva and sclera are non-icteric and not injected. Cornea within normal limits. Periorbital areas with no swelling, redness, or edema. ENT: Nares patent. No nasal discharge, no septal abnormalities noted. Tympanic membranes are normal and external auditory canals are clear. Oropharynx with no redness, swelling, or masses, exudates, or evidence of obstruction, uvula midline. Mucous membranes moist. Neck: Trachea midline, no thyromegaly or masses palpated, and no cervical lymphadenopathy. Supple, full range of motion without nuchal rigidity, or vertebral point tenderness. No Meningismus. Cardiovascular: Regular rate and rhythm with a normal S1 and S2. No gallops, murmurs, or rubs. Normal PMI, no JVD. No pulse deficits. Respiratory: Lungs have equal breath sounds bilaterally, clear to auscultation and percussion. No rales, rhonchi or wheezes noted. No increased work of breathing, no retractions or nasal flaring. Abdomen/GI: Soft, non-tender, with normal bowel sounds. No distension or tympany. No guarding or rebound. No evidence of tenderness throughout. Back: No spinal tenderness. No costovertebral tenderness. Full range of motion. Skin: Warm, dry with normal turgor. Normal color with no rashes, no lesions, and no evidence of cellulitis. MS/ Extremity: Pulses equal, no cyanosis. Neurovascular intact. Full, normal range of motion. Neuro: Awake and alert, GCS 15, oriented to person, place, time, and situation. Cranial nerves II-XII grossly intact. Motor strength 5/5 in all extremities. Sensory grossly intact. Vital Signs: 10:10 BP 129 / 97; Pulse 73; Resp 20 S; Temp 98.2(O); Pulse Ox 95% on R/A; aa5 11:18 BP 146 / 88; Pulse 71; Resp 16; Pulse Ox 96% on R/A; tw2 12:34 BP 143 / 79; Pulse 59; Resp 18; Temp 97.9(O); Pulse Ox 97% on R/A; mh5 13:30 BP 152 / 88; Pulse 69; Resp 17; Pulse Ox 95% on R/A; tw2 14:12 BP 148 / 72; Pulse 88; Resp 16; Pulse Ox 99% on R/A; tw2 MDM: 10:09 Patient medically screened. jr8 13:01 Data reviewed: vital signs, nurses notes, lab test result(s), EKG, radiologic studies, [facility] CT scan, plain films. Data interpreted: Pulse oximetry: on room air is 97 %. Interpretation: normal. Counseling: I had a detailed discussion with the patient and/or guardian regarding: the historical points, exam findings, and any diagnostic results supporting the discharge/admit diagnosis, lab results, radiology results, the need for outpatient follow up, a family practitioner, to return to the emergency department if symptoms worsen or persist or if there are any questions or concerns that arise at home. ED course: Discussed with family that the increased AMS likely due to UTI. Patient without signs of Sepsis or SIRS. Hemodynamically stable. No falls. Good family care at home. Will d/c home on Abx. Family knows to come back if with fevers or worsening symptoms . 01/23 10:32 Order name: Basic Metabolic Panel; Complete Time: 12:17 [facility] 01/23 10:32 Order name: CBC with Diff; Complete Time: 12:58 [facility] 01/23 10:32 Order name: LFT's; Complete Time: 12:17 [facility] 01/23 10:32 Order name: Magnesium; Complete Time: 12:17 [facility] 01/23 10:32 Order name: NT PRO-BNP; Complete Time: 12:17 [facility] 01/23 10:32 Order name: PT-INR; Complete Time: 12:17 [facility] 01/23 10:32 Order name: Troponin (emerg Dept Use Only); Complete Time: 12:17 [facility] 01/23 10:32 Order name: XRAY Chest (1 view); Complete Time: 12:17 [facility] 01/23 10:32 Order name: Urine Microscopic Only; Complete Time: 12:58 [facility] 01/23 10:32 Order name: CT Head Brain wo Cont; Complete Time: 12:17 [facility] 01/23 12:04 Order name: Urine Dipstick--Ancillary (enter results); Complete Time: 12:58 bd 01/23 12:23 Order name: Urine Culture [facility] 01/23 10:32 Order name: EKG; Complete Time: 10:32 [facility] 01/23 10:32 Order name: Cardiac monitoring; Complete Time: 10:58 [facility] 01/23 10:32 Order name: EKG - Nurse/Tech; Complete Time: 10:59 [facility] 01/23 10:32 Order name: O2 Per Protocol; Complete Time: 10:33 8 01/23 10:32 Order name: O2 Sat Monitoring; Complete Time: 10:33 01/23 10:32 Order name: Urine Dipstick-Ancillary (obtain specimen); Complete Time: 11:45 8 01/23 11:20 Order name: Straight Cath - Urine; Complete Time: 11:20 2 01/23 11:31 Order name: Labs - recollect needed: recollect cbc; Complete Time: 14:13 bd Administered Medications: 14:00 Not Given (md aware - no iv at this time): Rocephin 2 grams IV at calculated rate once; tw2 Given slow IV push per pharmarcy instructions 14:00 Drug: Rocephin (cefTRIAXone) 1 grams Route: IM; Site: left deltoid; tw2 14:13 Follow up: Response: No adverse reaction tw2 Disposition: 15:58 Co-signature as Attending Physician, Zain Adams MD I agree with the assessment and argelia plan of care. Disposition: 01/24/20 13:03 Discharged to Home. Impression: Altered mental status, unspecified, Acute cystitis. - Condition is Stable. - Discharge Instructions: Urinary Tract Infection, Adult. - Prescriptions for Cipro 500 mg Oral Tablet - take 1 tablet by ORAL route every 12 hours for 7 days; 14 tablet. - Medication Reconciliation Form, Thank You Letter, Antibiotic Education, Prescription Opioid Use, SBAR form form. - Follow up: Private Physician; When: 2 - 3 days; Reason: Recheck today's complaints, Continuance of care, Re-evaluation by your physician. - Problem is new. - Symptoms have improved. Signatures: Dispatcher [employer] Anita Mcgee Corey, MD MD cha Calderon, Audri, RN RN aa5 Deepak Echevarria PA PA jr8 Charisse Jasmine RN RN tw2 Jairo Mckeon RN RN jl7 Corrections: (The following items were deleted from the chart) 14:23 13:03 01/24/2020 13:03 Discharged to Home. Impression: Altered mental status, tw2 unspecified; Acute cystitis. Condition is Stable. Forms are SBAR form, Medication Reconciliation Form, Thank You Letter, Antibiotic Education, Prescription Opioid Use. Follow up: Private Physician; When: 2 - 3 days; Reason: Recheck today's complaints, Continuance of care, Re-evaluation by your physician. Problem is new. Symptoms have improved. jr8
[2020-01-24] MEDS ORDERED: CEFTRIAXONE 1000 MG/VIAL ONE (14:11)
[2020-01-24] MEDS ORDERED: WATER FOR INJ,STERILE 10 ML ONE (14:11)
[2020-01-24 14:49] VITALS: TEMP 97.9
[2020-01-24 14:54] VITALS: BP 148/72; O2SAT 99
--- NOTE | 2020-01-25 10:10 | EKG ---
Test Date: 2020-01-24 Test Time: 11:13:48 Inspector Golf Ball: GUTIERREZ MEASUREMENT RESULTS: Intervals: Rate: 73 FL: QRSD: 120 QT: 472 QTc: 519 [place]: P: FL: QRS: 14 T: 251 INTERPRETIVE STATEMENTS: Atrial fibrillation with a competing junctional pacemaker Incomplete left bundle branch block ST & T wave abnormality, consider lateral ischemia or digitalis effect Abnormal ECG Compared to ECG 11/13/2006 14:58:33 Left bundle-branch block now present ST (T wave) deviation now present Sinus rhythm no longer present T-wave abnormality no longer present Myocardial infarct finding no longer present Possible ischemia still present Electronically Signed On 01-25-20 10:06:53 CDT by Specner Obrien
== END 2020-01-24 14:23 | disposition home or self-care (01) ==
LOC: ER 09:41
DX: N30.00 Acute cystitis without hematuria (principal); Z86.73 Personal history of transient ischemic attack (TIA), and cerebral infarction without residual deficits; Z88.0 Allergy status to penicillin
CPT/HCPCS: 36415; 70450; 71045; 80048; 80076; 81003; 81015; 83735; 83880; 84484; 85025; 85610; 87077; 87086; 87088; 87186; 93005; 96372; 99284

== ENCOUNTER 2020-07-10 13:49 | Observation (INO) | payer OTHER ==
--- OUTSIDE RECORDS SUMMARY | 2020-07-10 13:53 | XMS REPORT | Continuity of Care Document ---
:1940 Author Organization [facility] t Address [address] [place] [address] Care Team Providers Name Role Phone ElizabetZachariah Primary Care Physician Doctor Unassigned, Name Attending Clinician Unavailable Melecio AGUILA, Gene Attending Clinician Problems Condition Condition Condition Status Onset Resolution Last Treating Co mments Source Name Details Category Date Date Treatment Clinician Date Atrial Atrial Disease Active [facility] fibrillati fibrillati 10-15 [facility] - on by 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 00 Ce nter diogram diogram Allergies, Adverse Reactions, Alerts Allergy Allergy Status Severity Reaction(s) Onset Inactive Treating Comm ents Source Name Type Date Date Clinician Penicill Propensi Active Swelling [facility] ins ty [facility] 10-02 [facility] - adverse 00:00: Medical reaction 00 Center s Social History Social Habit Start Date Stop Date Quantity Comments Source Sex Assigned At [facility] Alcohol intake 2014-06-06 2014-06-06 Current [facility] - 00:00:00 00:00:00 non-drinker of Medical Ce nter alcohol (finding) History of 1973-10-[address] [facility] - [facility] use 00:[facility]:00 [facility] Smoking Status Start Date Stop Date Source Former smoker 2014-06-06 00:00:00 2014-06-06 00:00:[address] [facility] Medications Ordered Filled Start Stop Current Ordering Indication Dosage Frequency Signature Comments Components Source Medication Medication Date Date Medication? Clinician (SIG) Name Name Terbinafine Terbinafine 2019-0 2020- No Sidney Taylor [address] [facility] HCl HCl 9-03-08 [facility] - 00:[facility]: [facility]:00 [facility] 00 :00 [facility] diphenoxyla Yes 1{tbl} Take 1 CH I [...] MG 14:49: mouth Medical tablet 44 daily. [place] primidone Yes 50mg QD Take [address] (MYSOLINE) 7-18 by mouth [facility] - 50 MG 14:49: daily. Medical tablet 44 Center metoprolol Yes 50mg Q.5D Take [address] (LOPRESSOR) 7-18 by mouth 2 [facility] - 50 MG 14:49: (two) Medical tablet 44 times Center daily. gabapentin Yes 300mg Q.[id number] Take [address] [facility] (NEURONTIN) 7-18 [id number] mg by L ukes - 300 MG 14:49: 3D mouth 3 Medical tablet 44 (three) Center times daily. atorvastati Yes 40mg QD Take [address] n (LIPITOR) 7-18 by mouth Luke [facility] - 40 MG 14:49: daily. Medical tablet 44 Center risperiDONE Yes .25mg QD Take 0.[address] (RISPERDAL) 7-18 mg by [facility] - 0.25 MG 14:49: mouth Medical tablet 44 nightly. [place] rOPINIRole Yes .25mg Q.[id number] Take 0.[address] (REQUIP) 7-18 [id number] mg by Luke s - 0.25 MG [...] 20 MG 14:49: daily. Medical tablet 44 [place] naproxen Yes 220mg Take [address] [facility] (ALEVE,ANAP 7-18 mg by [facility] - ALBERTO,MIDOL) 14:49: mouth 2 Medi manny 220 MG 44 (two) Center tablet times daily with breakfast and dinner. acetaminoph Yes 500mg Take [address] en 7-18 mg by [facility] - (TYLENOL) 14:49: mouth Medical 500 MG 44 every 6 Center tablet (six) hours as needed for Pain. hydrochloro Yes 25mg QD Take [address] thiazide 7-18 by mouth [facility] - (HYDRODIURI 14:49: daily. Medi manny L) 25 MG 44 Center tablet sertraline Yes 50mg QD Take [address] (ZOLOFT) 50 7-18 by mouth [facility] - MG tablet 14:49: daily. Medica l 44 Center fenofibrate Yes [facility] (TRICOR) 6-17 [facility] - 145 MG 00:00: Medical tablet 00 [place] carvedilol Yes [facility] (COREG) 6-17 [facility] - 12.5 MG 00:00: Medical tablet 00 [place] amLODIPine Yes 5mg QD [address] [facility] (NORVASC) 5 6-11 daily. [facility] - MG tablet 00:00: Medical 00 [place] omeprazole Yes [facility] (PRILOSEC) 5-01 [facility] - 40 MG 00:00: Medical capsule 00 [place] + + Yes Sidney Taylor as [facility] Complete Complete [facility] directed [facility] Metoprolol Metoprolol Yes Sidney Taylor TAKE [address] [facility] Tartrate Tartrate [facility] TABLET BY [facility] - MOUTH [facility]oria TWICE A l DAY [facility] Carbidopa-L Carbidopa-L Yes Sidney Taylor TAKE [address] [facility] evodopa evodopa [facility] TABLET BY [facility] - MOUTH [facility] THREE l TIMES A [facility] DAY ent Clinics Levothyroxi Levothyroxi Yes Sidney Taylor TAKE [address] [facility] ne Sodium ne Sodium [facility] TABLET BY [facility] - MOUTH [facility] EVERY DAY l [facility] Citalopram Citalopram Yes Sidney Taylor TAKE [address] [facility] Hydrobromid Hydrobromid [facility] TABLET BY [facility] - e e MOUTH [facility]oria EVERY DAY l [facility] Donepezil Donepezil Yes Sidney Taylor TAKE [address] HCl HCl [place] TABLET BY [facility] - MOUTH AT [facility] BEDTIME l [facility] Atorvastati Atorvastati Yes Sidney Taylor TAKE [address] [facility] n Calcium n Calcium [place] TABLET BY [facility] - MOUTH [facility]oria EVERY DAY l AT NIGHT [facility] Oxybutynin Oxybutynin Yes Sidney Taylor TAKE [address] [facility] Chloride Chloride [facility] TABLET BY [facility] - MOUTH Memoria EVERY DAY l [facility] Immunizations Ordered Filled Immunization Date Status Comments Sour e Immunization Name Name FLUZONE HIGH DOSE FLUZONE HIGH DOSE 2019-12-[address] [facility] - OVER 65 OVER 65 00:00:00 [facility] Procedures This patient has no known procedures. Encounters Start End Encounter Admission Attending Care Care Encounter Source Date/Time Date/Time Type Type Clinicians Facility Department ID 2020-06-28 2020-06-28 Outpatient [facility] [id number] [facility] 2020-06-09 2020-06-09 Outpatient [facility] [id number] [facility] 2020-06-09 2020-06-09 Outpatient [facility] [id number] [facility] 2020-05-19 2020-05-19 Outpatient [facility] [id number] [facility] 2020-05-04 2020-05-04 Outpatient [facility] [id number] [facility] 2020-04-28 2020-04-28 Outpatient [facility] [id number] [facility] 2020-04-28 2020-04-28 [facility] [id number] [facility] 2020-04-26 2020-04-26 Out[facility] [id number] [facility] 2020-04-25 2020-04-25 Out[facility] [id number] [facility] 2020-04-18 2020-04-18 Outpatient [facility] [id number] [facility] 2020-04-10 2020-04-10 Out[facility] [id number] [facility] 2020-04-06 2020-04-06 Out[facility] [id number] [facility] 2020-02-11 2020-02-11 Outpatient [facility] [id number] [facility] 2020-02-10 2020-02-10 Out[facility] [id number] [facility] 2020-02-04 2020-02-04 Out[facility] [id number] [facility] 2020-01-31 2020-01-31 Outpatient [facility] [id number] [facility] 2020-01-27 2020-01-27 Outpatient [facility] [id number] [facility] 2020-01-20 2020-01-20 Outpatient [facility] [id number] [facility] 2020-01-17 2020-01-17 Outpatient [facility] [id number] [facility] 2020-01-13 2020-01-13 Outpatient [facility] [id number] [facility] 2020-01-10 2020-01-10 Outpatient [facility] [id number] [facility] 2020-01-10 2020-01-10 Out[facility] [id number] [facility] 2020-01-06 2020-01-06 Out[facility] [id number] [facility] 2020-01-04 2020-01-04 Outpatient [facility] [id number] [facility] 2019-12-31 2019-12-31 Outpatient [facility] [id number] [facility] 2019-12-27 2019-12-27 Outpatient [facility] [id number] [facility] 2019-12-27 2019-12-27 Out[facility] [id number] [facility] 2019-12-22 2019-12-22 Outpatient [facility] [id number] [facility]00 [facility] 2019-12-22 2019-12-22 Outpatient [facility] [id number] [facility]00 [facility] Outpati ent Clinics 2019-12-22 2019-12-22 Outpatient [facility] [id number] [facility]00 [facility] 2019-12-16 2019-12-16 [facility] [id number] 09:00:00 09:00:00 [facility] Medicine [facility] 2019-05-18 2019-05-18 Orders Doctor RUCKER [id number] 00:00:00 00:00:00 Only Unassigned, [place] [id number] [place] [facility] [id number] 2019-05-16 2019-05-16 RANJIT Cote [id number] 00:00:00 00:00:00 Kaleb Cunningham [id number] [place] [id number] [place] [id number] nal 092 Building Results This patient has no known results.
[2020-07-10 15:03] LABS: Absolute Lymphocytes (CBC) 2.4 K/uL (0.7-4.9); Basophils % 0.8 % (0-1.3); Hematocrit 37.8 % (36.0-45.0); Lymphocytes % 27.5 % (15.3-44.8); MPV 8.3 fL (7.6-11.3); RBC Red Blood Cell Count 3.93 M/uL (3.86-4.86)
[2020-07-10 15:11] LABS: Protime INR 1.15
--- NOTE | 2020-07-10 15:12 | RAD REPORT ---
EXAM DESCRIPTION: RAD - Chest Single View - 07/10/2020 2:49 pm CLINICAL HISTORY: CHEST PAIN COMPARISON: chest and rib impinging June 09, 2020 TECHNIQUE: AP portable chest image was obtained 07/10/2020 2:49 pm . FINDINGS: No peripheral mass or consolidation. Retrocardiac left base is limited by body habitus and portable technique. Heart and vasculature are normal. No measurable pleural effusion and no pneumoth orax. Bilateral significant shoulder joint degenerative change present matching comparison. No acute bone findings. No acute aortic findings suspected. IMPRESSION: No acute cardiopulmonary process. Retrocardiac left base remains limited in assessment.
[2020-07-10] MEDS ORDERED: ONDANSETRON 4 MG/2 ML VIAL ONE (15:20)
[2020-07-10] MEDS ORDERED: NA CHLORIDE 0.9% 1,000 ML ONE (15:20)
[2020-07-10] MEDS ORDERED: MORPHINE 2 MG/ML SYR ONE (15:20)
[2020-07-10] MEDS ORDERED: METOPROLOL TAR 50 MG TAB ONE ×2 (15:20→20:28)
[2020-07-10 15:28] LABS: Albumin 4.1 g/dL (3.4-5.0); Bilirubin Direct 0.2 mg/dL (0-0.2); Bilirubin Total 0.7 mg/dL (0.2-1.0); Potassium 3.8 mmol/L (3.5-5.1); Troponin (Emerg Dept Use Only) 0.05 ng/mL (0.0-0.045)
[2020-07-10 15:29] LABS: Thyroid Stimulating Hormone 4.88 uIU/mL (0.360-3.740)
[2020-07-10] MEDS ORDERED: METOPROLOL TARTRATE 5 MG/5 ML INJ IV ONE ×2 (15:32→16:34)
[2020-07-10] MEDS ORDERED: FAMOTIDINE 20 MG/2 ML VIAL IV ONE (15:32)
--- NOTE | 2020-07-10 16:06 | EDPHYS ---
Physician Documentation [facility] Name: Kari Grace Age: 80 yrs Sex: Female : 1940 Arrival Date: 07/10/2020 Time: 13:50 Bed 15 Private MD: ED Physician Zain Adams HPI: 07/10 15:05 This 80 yrs old Female presents to ER via Wheelchair with complaints of pain argelia under breast left side. 15:05 The patient has shortness of breath at rest, with light activity. Onset: The argelia symptoms/episode began/occurred just prior to arrival, this morning. Duration: The symptoms are continuous, and are steadily getting worse. The patient's shortness of breath has no apparent modifying factors. The patient or guardian reports chest pain that is located primarily in the anterior chest wall, left. Onset: this morning. The pain does not radiate. Associated signs and symptoms: The patient has no apparent associated signs or symptoms. Severity of symptoms: At their worst the symptoms were moderate in the emergency department the symptoms are unchanged. Associated signs and symptoms: The patient has no apparent associated signs or symptoms. The chest pain is described as a pressure, stabbing. Historical: - Allergies: 14:20 PENICILLINS; ca1 - PMHx: 14:20 brain aneurysm; Brain bleed; CVA; 2018; Dementia; TIA; Atrial Fib; ca1 - PSHx: 14:20 arterial appendage clipping brain 2016; ca1 - Immunization history:: Client reports receiving the 2nd dose of the Covid vaccine, Client reports receiving the 1st dose of the Covid vaccine, . - Social history:: Smoking status: Patient denies any tobacco usage or history of. ROS: 15:06 Constitutional: Negative for fever, chills, and weight loss, Eyes: Negative for injury, argelia pain, redness, and discharge, ENT: Negative for injury, pain, and discharge, Neck: Negative for injury, pain, and swelling, Respiratory: Negative for shortness of breath, cough, wheezing, and pleuritic chest pain, Abdomen/GI: Negative for abdominal pain, nausea, vomiting, diarrhea, and constipation, Back: Negative for injury and pain, : Negative for injury, bleeding, discharge, and swelling, MS/Extremity: Negative for injury and deformity, Skin: Negative for injury, rash, and discoloration, Neuro: Negative for headache, weakness, numbness, tingling, and seizure, Psych: Negative for depression, anxiety, suicide ideation, homicidal ideation, and hallucinations, Allergy/Immunology: Negative for hives, rash, and allergies, Endocrine: Negative for neck swelling, polydipsia, polyuria, polyphagia, and marked weight changes, Hematologic/Lymphatic: Negative for swollen nodes, abnormal bleeding, and unusual bruising. 15:06 Cardiovascular: Positive for chest pain, of the left breast. Exam: 15:06 Constitutional: This is a well developed, well nourished patient who is awake, alert, argelia and in no acute distress. Head/Face: Normocephalic, atraumatic. Eyes: Pupils equal round and reactive to light, extra-ocular motions intact. Lids and lashes normal. Conjunctiva and sclera are non-icteric and not injected. Cornea within normal limits. Periorbital areas with no swelling, redness, or edema. ENT: Nares patent. No nasal discharge, no septal abnormalities noted. Tympanic membranes are normal and external auditory canals are clear. Oropharynx with no redness, swelling, or masses, exudates, or evidence of obstruction, uvula midline. Mucous membranes moist. Neck: Trachea midline, no thyromegaly or masses palpated, and no cervical lymphadenopathy. Supple, full range of motion without nuchal rigidity, or vertebral point tenderness. No Meningismus. Chest/axilla: Normal chest wall appearance and motion. Nontender with no deformity. No lesions are appreciated. Respiratory: Lungs have equal breath sounds bilaterally, clear to auscultation and percussion. No rales, rhonchi or wheezes noted. No increased work of breathing, no retractions or nasal flaring. Abdomen/GI: Soft, non-tender, with normal bowel sounds. No distension or tympany. No guarding or rebound. No evidence of tenderness throughout. Back: No spinal tenderness. No costovertebral tenderness. Full range of motion. Female : Normal external genitalia. Skin: Warm, dry with normal turgor. Normal color with no rashes, no lesions, and no evidence of cellulitis. MS/ Extremity: Pulses equal, no cyanosis. Neurovascular intact. Full, normal range of motion. Neuro: Awake and alert, GCS 15, oriented to person, place, time, and situation. Cranial nerves II-XII grossly intact. Motor strength 5/5 in all extremities. Sensory grossly intact. Cerebellar exam normal. Normal gait. Psych: Awake, alert, with orientation to person, place and time. Behavior, mood, and affect are within normal limits. 15:06 Cardiovascular: Rate: tachycardic, Rhythm: regular, Pulses: Pulses are 4+ in bilateral radial, brachial, femoral, popliteal, posterior tibial and and dorsalis pedis arteries.. Heart sounds: normal, Edema: is not appreciated, JVD: is not appreciated. 15:11 ECG was reviewed by the Attending Physician. [facility] Vital Signs: 14:16 BP 185 / 140; Pulse 130; Resp 20 S; Temp 97.9; Pulse Ox 100% on R/A; Weight 97.52 kg bp (R); Height 5 ft. 4 in. (162.56 cm) (R); Pain 10/10; 14:29 BP 167 / 112; Pulse 119; Resp 20; Pulse Ox 98% ; bp 15:30 BP 185 / 106; Pulse 88; Resp 20; Pulse Ox 95% ; bp 16:30 BP 162 / 115; Pulse 66; Resp 19; Pulse Ox 93% ; bp 17:30 BP 131 / 96; Pulse 70; Resp 13; Pulse Ox 94% ; bp 18:22 BP 160 / 95; Pulse 66; Resp 14; Pulse Ox 92% ; bp 14:16 Body Mass Index 36.90 (97.52 kg, 162.56 cm) bp MDM: 14:33 Patient medically screened. argelia 15:07 Differential diagnosis: CHF exacerbation, abnormal EKG, acute pericarditis, anxiety, argelia coronary artery disease esophagitis, pancreatitis, peptic ulcer disease, pleurisy, stable angina, unstable angina, Myocardial Infarction pneumonia, Pneumothorax pulmonary edema, Pulmonary Embolism Unstable Angina. Antibiotic administration: Not indicated. HEART Score: History: Slightly Suspicious (0), ECG: Non specific repolarization disturbance / LBTB / PM (1), Age: > or = 65 years (2), Risk Factors: > or = 3 Risk factors for atherosclerotic disease (2), [Hypercholesterolemia] [Hypertension] [+ Family HX] [Obesity] Troponin: < or = 1 x Normal Limit (0). The patient was given aspirin in the Emergency Department. The patient's Wells Deep Vein Thrombosis Score was calculated as follows: Total Score: 0. This patient was found to be at low risk for a deep vein thrombosis by using the Well's assessment criteria Heart Rate >100 BPM (1.5 Pts) Total Score: 0-2 Pts- Low Risk. The patient's pulmonary embolism risk score was calculated as follows: the patients heart rate is greater than 100 beats per minute (1.5 Pts) Total Score: 0-2 points. This patient was found to be at low risk for a pulmonary embolism by using the Well's assessment criteria the patients heart rate is greater than 100 beats per minute (1.5 Pts) Total Score: 0-2 points. This patient was found to be at low risk for a pulmonary embolism by using the Well's assessment criteria. RANDY Risk Score: 1 - patient's age is greater or equal to 65 years, 1 - Three or more CAD risk factors, [Family Hx], [HTN], [Elevated Cholesterol], 1 - ASA use in past 7 days, TOTAL SCORE = 3. Immunization status: Pneumococcal vaccine: Influenza vaccine: Data reviewed: vital signs, nurses notes, EMS record, lab test result(s), EKG, radiologic studies, plain films. 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 Test interpretation: by ED physician or midlevel provider: ECG, plain radiologic studies. 07/10 14:35 Order name: Basic Metabolic Panel [facility] 07/10 14:35 Order name: CBC with Diff 07/10 14:35 Order name: LFT's 07/10 14:35 Order name: Magnesium 07/10 14:35 Order name: NT PRO-BNP 07/10 14:35 Order name: PT-INR; Complete Time: 15:55 argelia 07/10 14:35 Order name: Troponin (emerg Dept Use Only); Complete Time: 15:44 07/10 14:35 Order name: TSH; Complete Time: 15:55 [facility] 07/10 14:35 Order name: Lipase; Complete Time: 15:55 [facility] 07/10 14:36 Order name: Basic Metabolic Panel; Complete Time: 15:55 EDMS 07/10 14:36 Order name: CBC with Automated Diff; Complete Time: 15:55 EDMS 07/10 14:36 Order name: Liver (Hepatic) Function; Complete Time: 15:55 EDMS 07/10 14:36 Order name: Magnesium; Complete Time: 15:55 [facility] 07/10 14:35 Order name: XRAY Chest (1 view); Complete Time: 15:55 [facility] 07/10 14:36 Order name: NT PRO-BNP; Complete Time: 15:55 [facility] 07/10 15:29 Order name: T4 Free; Complete Time: 15:55 [facility] 07/10 16:12 Order name: CT Aorta for Dissection; Complete Time: 17:40 [facility] 07/10 16:52 Order name: SARS-COV-2 RT PCR; Complete Time: 17:40 [facility] 07/10 20:30 Order name: Creatine Phosphokinase [facility] 07/10 20:30 Order name: CKMB Creatine Kinase MB [facility] 07/10 20:30 Order name: Troponin I [facility] 07/10 14:35 Order name: EKG; Complete Time: 14:36 [facility] 07/10 14:35 Order name: Cardiac monitoring; Complete Time: 15:25 [facility] 07/10 14:35 Order name: EKG - Nurse/Tech; Complete Time: 15:26 [facility] 07/10 14:35 Order name: IV Saline Lock; Complete Time: 15:26 [facility] 07/10 14:35 Order name: Labs collected and sent; Complete Time: 15:26 [facility] 07/10 14:35 Order name: O2 Per Protocol; Complete Time: 15:26 [facility] 07/10 14:35 Order name: O2 Sat Monitoring; Complete Time: 15:26 [facility] EC:11 Rate is 99 beats/min. Rhythm is irregular. QRS [place] is Normal. OR interval is normal. [facility] QRS interval is normal. QT interval is normal. No Q waves. T waves are Normal. ST Segment is depressed in leads II, III, aVF, V5, V6. Clinical impression: Atrial Fibrillation. Interpreted by me. Reviewed by me. Administered Medications: 15:00 Drug: NS 0.9% 1000 ml Route: IV; Rate: 125 ml/hr; Site: right forearm; bp 15:00 Drug: morphine 2 mg Route: IVP; Site: right forearm; bp 15:00 Drug: Zofran (Ondansetron) 4 mg Route: IVP; Site: right forearm; bp 16:03 Follow up: Response: No adverse reaction bp 15:04 CANCELLED (Duplicate Order): Lovenox (enoxaparin) 90 mg Sub-Q once argelia 15:05 Drug: Lopressor (metoprolol TARTRATE) 50 mg Route: PO; bp 16:03 Follow up: Response: No adverse reaction bp 15:09 Drug: morphine 2 mg Route: IVP; Site: right forearm; bp 16:03 Follow up: Response: Pain is decreased bp 15:10 Drug: Lopressor 5 mg Route: IVP; Site: right forearm; bp 16:03 Follow up: Response: No adverse reaction bp 15:10 Drug: Pepcid (famotidine) 20 mg Route: IVP; Site: right forearm; bp 16:03 Follow up: Response: No adverse reaction bp 16:10 Drug: Lopressor 5 mg Route: IVP; Site: right forearm; bp 17:32 Follow up: Response: No adverse reaction bp 16:15 Drug: Nitro-Bid Ointment 2 % 1 inches Route: Transdermal; Site: anterior chest wall; bp 16:15 Drug: Tylenol 1000 mg Route: PO; bp 17:31 Follow up: Response: Pain is decreased bp 16:20 Drug: Ativan 0.5 mg Route: IVP; Site: right forearm; bp 17:31 Follow up: Response: Anxiety decreased bp 16:40 Drug: Ativan 0.5 mg Route: IVP; Site: right forearm; bp 17:31 Follow up: Response: Anxiety decreased bp 17:50 Drug: Heparin ([place]-Bolus No thrombolytic) - HEParin 60 units/kg {Co-Signature: jd3 bp (Jonnathan Perkins RN).} Route: IVP; Site: right forearm; 18:23 Follow up: Response: No adverse reaction bp 17:51 Drug: Heparin ([place] Drip) 12 units/kg/hr - (HEParin 96795 units, D5W 500 ml) bp {Co-Signature: jd3 (Jonnathan Perkins RN).} Route: IV; Rate: calculated rate; Site: right forearm; Disposition: 07/10/20 16:06 Hospitalization ordered by Asim Montoya for Inpatient Admission. Preliminary diagnosis are Chest pain, unspecified, Essential (primary) hypertension, Atrial fibrillation and flutter, Non-ST elevation (NSTEMI) myocardial infarction. - Bed requested for Telemetry/MedSurg (Inpatient). - Status is Inpatient Admission. em - Condition is Stable. - Problem is new. - Symptoms have improved. Signatures: Dispatcher [employer] EDMT Anita Durbin bd Danita Rizo, RN Cydney Arguelles, RN Zain Moser MD MD cha Munoz, Edgar, RN RN Solange Wray RN ALISSON iw Attema, Kvng, PAPER MILL SUPERINTENDENT-C PAPER MILL SUPERINTENDENT-Cla1 Andrés Winters, RN ALISSON bp Acmarek, Leeann, RN ALISSON ca1 Jonnathan Perkins RN jd3 Corrections: (The following items were deleted from the chart) 15:04 14:59 Lovenox (enoxaparin) 90 mg Sub-Q once ordered. argelia argelia 16:02 14:36 CORONAVIRUS+MR.LAB.BRZ ordered. EDMT EDMS 16:24 16:11 Thorax W/ Con+CT.RAD.BRZ ordered. EDMT EDMS 18:25 16:06 Hospitalization Ordered by Asim Montoya DO for Inpatient Admission. Preliminary bd diagnosis is Chest pain, unspecified; Essential (primary) hypertension; Atrial fibrillation and flutter; Non-ST elevation (NSTEMI) myocardial infarction. Bed requested for Telemetry/MedSurg (Inpatient). Status is Inpatient Admission. Condition is Stable. Problem is new. Symptoms have improved. argelia 19:37 18:25 07/10/2020 16:06 Hospitalization Ordered by Asim Montoya DO for Inpatient iw Admission. Preliminary diagnosis is Chest pain, unspecified; Essential (primary) hypertension; Atrial fibrillation and flutter; Non-ST elevation (NSTEMI) myocardial infarction. Bed requested for [facility] ER HOLD. Status is Inpatient Admission. Condition is Stable. Problem is new. Symptoms have improved. bd 19:52 19:37 07/10/2020 16:06 Hospitalization Ordered by Asim Montoya DO for Inpatient iw Admission. Preliminary diagnosis is Chest pain, unspecified; Essential (primary) hypertension; Atrial fibrillation and flutter; Non-ST elevation (NSTEMI) myocardial infarction. Bed requested for Telemetry/MedSurg (Inpatient). Status is Inpatient Admission. Condition is Stable. Problem is new. Symptoms have improved. iw 20:46 19:52 07/10/2020 16:06 Hospitalization Ordered by Asim Montoya DO for Inpatient dw Admission. Preliminary diagnosis is Chest pain, unspecified; Essential (primary) hypertension; Atrial fibrillation and flutter; Non-ST elevation (NSTEMI) myocardial infarction. Bed requested for Telemetry/MedSurg (observation). Status is Inpatient Admission. Condition is Stable. Problem is new. Symptoms have improved. iw 21:13 20:46 07/10/2020 16:06 Hospitalization Ordered by Asim Montoya DO for Inpatient mw Admission. Preliminary diagnosis is Chest pain, unspecified; Essential (primary) hypertension; Atrial fibrillation and flutter; Non-ST elevation (NSTEMI) myocardial infarction. Bed requested for [facility] ER HOLD. Status is Inpatient Admission. Condition is Stable. Problem is new. Symptoms have improved. dw 21:47 21:13 07/10/2020 16:06 Hospitalization Ordered by Asim Montoya DO for Inpatient em Admission. Preliminary diagnosis is Chest pain, unspecified; Essential (primary) hypertension; Atrial fibrillation and flutter; Non-ST elevation (NSTEMI) myocardial infarction. Bed requested for Telemetry/MedSurg (Inpatient). Status is Inpatient Admission. Condition is Stable. Problem is new. Symptoms have improved. mw
--- NOTE | 2020-07-10 16:06 | ER ---
Nurse's Notes [facility] Name: Kari Grace Age: 80 yrs Sex: Female : 1940 Arrival Date: 07/10/2020 Time: 13:50 Bed 15 Private MD: Diagnosis: Chest pain, unspecified;Essential (primary) hypertension;Atrial fibrillation and flutter;Non-ST elevation (NSTEMI) myocardial infarction Presentation: 07/10 14:16 Chief complaint: Patient's son or daughter states: pain on L side under breast ca1 radiating to the back, been going on for couple weeks but worse today. Pt uncomfortable in triage and started vomiting. Coronavirus screen: Client denies travel out of the [place] in the last 14 days. nausea, Client presents with at least one sign or symptom that may indicate coronavirus-19. Standard/surgical mask placed on the client. Provider contacted for isolation considerations. Ebola Screen: Patient negative for fever greater than or equal to 101.5 degrees Fahrenheit, and additional compatible Ebola Virus Disease symptoms Patient denies exposure to infectious person. Patient denies travel to an Ebola-affected area in the 21 days before illness onset. No symptoms or risks identified at this time. Initial Sepsis Screen: Does the patient meet any 2 criteria? No. Patient's initial sepsis screen is negative. Does the patient have a suspected source of infection? No. Patient's initial sepsis screen is negative. Risk Assessment: Do you want to hurt yourself or someone else? Patient reports no desire to harm self or others. Onset of symptoms was July 10, 2020. 14:16 Method Of Arrival: Wheelchair ca1 14:16 Acuity: JUNI 2 ca1 Triage Assessment: 14:24 General: Appears distressed, uncomfortable, obese, Behavior is cooperative, appropriate bp for age, agitated, anxious. Pain: Complains of pain in chest. EENT: No deficits noted. Neuro: Level of Consciousness is awake, alert, obeys commands, Oriented to person, place, time, situation, Appropriate for age. Cardiovascular: No deficits noted. Respiratory: No deficits noted. GI: No signs and/or symptoms were reported involving the gastrointestinal system. : No signs and/or symptoms were reported regarding the genitourinary system. Derm: Skin is diaphoretic, Skin is normal. Musculoskeletal: No deficits noted. Historical: - Allergies: 14:20 PENICILLINS; ca1 - PMHx: 14:20 brain aneurysm; Brain bleed; CVA; 2018; Dementia; TIA; Atrial Fib; ca1 - PSHx: 14:20 arterial appendage clipping brain 2016; ca1 - Immunization history:: Client reports receiving the 2nd dose of the Covid vaccine, Client reports receiving the 1st dose of the Covid vaccine, . - Social history:: Smoking status: Patient denies any tobacco usage or history of. Screenin:26 Abuse screen: Denies threats or abuse. Denies injuries from another. Nutritional bp screening: No deficits noted. Tuberculosis screening: No symptoms or risk factors identified. Fall Risk None identified. Assessment: 14:26 General: SEE TRIAGE NOTE. bp 15:00 Reassessment: No changes from previously documented assessment. Patient and/or family bp updated on plan of care and expected duration. Pain level reassessed. FAMILY AT B/S. 16:00 Reassessment: PER MD, HEPARIN BOLUS AND DRIP ON HOLD PENDING CT CHEST RESULTS. bp 16:39 Reassessment: No changes from previously documented assessment. Patient and/or family bp updated on plan of care and expected duration. Pain level reassessed. PT TO CT. 17:30 Reassessment: No changes from previously documented assessment. Patient and/or family bp updated on plan of care and expected duration. Pain level reassessed. CT UNREMARKABLE, PT CLEARED FOR HEPARIN. 18:22 Reassessment: Patient appears in no apparent distress at this time. Patient and/or bp family updated on plan of care and expected duration. Pain level reassessed. Patient is alert, oriented x 3, equal unlabored respirations, skin warm/dry/pink. ADMIT IN PROCESS Patient states feeling better. Vital Signs: 14:16 BP 185 / 140; Pulse 130; Resp 20 S; Temp 97.9; Pulse Ox 100% on R/A; Weight 97.52 kg bp (R); Height 5 ft. 4 in. (162.56 cm) (R); Pain 10/10; 14:29 BP 167 / 112; Pulse 119; Resp 20; Pulse Ox 98% ; bp 15:30 BP 185 / 106; Pulse 88; Resp 20; Pulse Ox 95% ; bp 16:30 BP 162 / 115; Pulse 66; Resp 19; Pulse Ox 93% ; bp 17:30 BP 131 / 96; Pulse 70; Resp 13; Pulse Ox 94% ; bp 18:22 BP 160 / 95; Pulse 66; Resp 14; Pulse Ox 92% ; bp 14:16 Body Mass Index 36.90 (97.52 kg, 162.56 cm) bp ED Course: 13:50 Patient arrived in ED. am2 14:19 Triage completed. ca1 14:20 Arm band placed on right wrist. Patient placed in an exam room. ca1 14:21 Andrés Winters, ALISSON is Primary Nurse. bp 14:26 Patient has correct armband on for positive identification. Bed in low position. Call bp light in reach. Side rails up X2. 14:30 Inserted saline lock: 20 gauge in right forearm, using aseptic technique. Blood bp collected. 14:33 Zain Adams MD is Attending Physician. argelia 14:49 XRAY Chest (1 view) In Process Unspecified. EDMS 16:04 Asim Montoya DO is Hospitalizing Provider. argelia 16:48 CT Aorta for Dissection In Process Unspecified. EDMS 19:13 No provider procedures requiring assistance completed. Patient admitted, IV remains in ea place. Administered Medications: 15:00 Drug: NS 0.9% 1000 ml Route: IV; Rate: 125 ml/hr; Site: right forearm; bp 15:00 Drug: morphine 2 mg Route: IVP; Site: right forearm; bp 15:00 Drug: Zofran (Ondansetron) 4 mg Route: IVP; Site: right forearm; bp 16:03 Follow up: Response: No adverse reaction bp 15:04 CANCELLED (Duplicate Order): Lovenox (enoxaparin) 90 mg Sub-Q once argelia 15:05 Drug: Lopressor (metoprolol TARTRATE) 50 mg Route: PO; bp 16:03 Follow up: Response: No adverse reaction bp 15:09 Drug: morphine 2 mg Route: IVP; Site: right forearm; bp 16:03 Follow up: Response: Pain is decreased bp 15:10 Drug: Lopressor 5 mg Route: IVP; Site: right forearm; bp 16:03 Follow up: Response: No adverse reaction bp 15:10 Drug: Pepcid (famotidine) 20 mg Route: IVP; Site: right forearm; bp 16:03 Follow up: Response: No adverse reaction bp 16:10 Drug: Lopressor 5 mg Route: IVP; Site: right forearm; bp 17:32 Follow up: Response: No adverse reaction bp 16:15 Drug: Nitro-Bid Ointment 2 % 1 inches Route: Transdermal; Site: anterior chest wall; bp 16:15 Drug: Tylenol 1000 mg Route: PO; bp 17:31 Follow up: Response: Pain is decreased bp 16:20 Drug: Ativan 0.5 mg Route: IVP; Site: right forearm; bp 17:31 Follow up: Response: Anxiety decreased bp 16:40 Drug: Ativan 0.5 mg Route: IVP; Site: right forearm; bp 17:31 Follow up: Response: Anxiety decreased bp 17:50 Drug: Heparin ([place]-Bolus No thrombolytic) - HEParin 60 units/kg {Co-Signature: jd3 bp (Jonnathan Perkins RN).} Route: IVP; Site: right forearm; 18:23 Follow up: Response: No adverse reaction bp 17:51 Drug: Heparin ([place] Drip) 12 units/kg/hr - (HEParin 87316 units, D5W 500 ml) bp {Co-Signature: jd3 (Jonnathan Perkins RN).} Route: IV; Rate: calculated rate; Site: right forearm; Outcome: 16:06 Decision to Hospitalize by Provider. argelia 19:14 Admitted to ER Hold. Please see [facility] for further documentation. ea 19:14 Condition: stable 19:14 Instructed on the need for admit, Demonstrated understanding of instructions. 21:47 Patient left the ED. em Signatures: Dispatcher [employer] Zain Silva MD MD cha Munoz, Edgar, RN RN em Sue Hilton Elena, RN RN ea Peltier, Brian, RN RN bp Acob, Cheryl, RN RN ca1 Jonnathan Perkins RN jd3 Corrections: (The following items were deleted from the chart) 17:40 14:16 BP 185 / 140; Pulse 130bpm; Resp 20bpm; Spontaneous; Pulse Ox 100% RA; 97.52 kg bp Reported; Height 5 ft. 4 in. Reported; BMI: 36.9; Pain 10/10; ca1
[2020-07-10] MEDS ORDERED: LORazepam 2 MG/ML VIAL ONE (16:31)
[2020-07-10] MEDS ORDERED: HEPARIN 5000 UNIT/ML 1 ML VIAL ONE (16:34)
[2020-07-10] MEDS ORDERED: ACETAMINOPHEN 500 MG TAB ONE (16:34)
[2020-07-10] MEDS ORDERED: NITROGLYCERIN 1 GM PKT TD ONE (16:34)
[2020-07-10] MEDS ORDERED: HEPARIN/D5W 25,000 UNIT/500 ML BAG IV ONE (16:34)
--- NOTE | 2020-07-10 17:24 | P.HP ---
Certification for Inpatient Patient admitted to: Observation With expected LOS: <2 Midnights Patient will require the following post-hospital care: None Practitioner: I am a practitioner with admitting privileges, knowledge of patient current condition, hospital course, and medical plan of care. Services: Services provided to patient in accordance with Admission requirements found in Title 42 Section 412.3 of the Code of Federal Regulations Patient History Date of Service: 07/10/20 Primary Care Provider: Dr. Monk Reason for admission: Chest pain History of Present Illness: 80-year-old female with history of prior CVA, dementia, hypertension, hyperlipidemia and atrial fibrillation. Patient with history of prior watchman procedure now off anticoagulation therapy. Patient presented to the ER with chest pain. Chest pain was mainly to that the left chest wall area. This has been recurrent. She went to her PCP recently to get this evaluated. X-ray unremarkable. She came to the ER again today with chest pain. Patient had atrial fibrillation with RVR. Rate around 130. In the ER patient was evaluated. Chest x-ray unremarkable. Troponin 0 0.05. BNP greater than 3000. CBC unremarkable. BMP unremarkable. TSH 4.8, free T4 1.48. Patient admitted for further evaluation and treatment. Allergies Penicillins Allergy (Verified 03/13/17 10:52) Anaphylaxis Home medications list reviewed: Yes Home Medications: Diphenoxylate HCl/Atropine [Diphenoxylate-Atrop 2.5-0.025] 1 tab PO Q6HR PRN 03/13/17 Gabapentin [Neurontin*] 1 tab PO DAILY 03/13/17 Metoprolol Tartrate 1 tab PO TID 03/13/17 OLANZapine [Zyprexa] 1 tab PO DAILY 03/13/17 Oxybutynin Chloride [Ditropan*] 1 tab PO DAILY 03/13/17 levoFLOXacin [Levofloxacin] 1 tab PO DAILY 03/13/17 - Past Medical/Surgical History Diabetic: No -: History of CVA -: Atrial fibrillation with history of watchman procedure -: Hypertension -: Dementia -: Watchman procedure Psychosocial/ Personal History: Patient lives at home - Family History Family History: Reviewed- Non-Contributory - Social History Smoking Status: Never smoker Alcohol use: No CD- Drugs: No Caffeine use: No Place of Residence: Home Review of Systems General: Unremarkable Eyes: Unremarkable ENT: Unremarkable Respiratory: Unremarkable Cardiovascular: Chest Pain Gastrointestinal: Unremarkable Genitourinary: Unremarkable Musculoskeletal: Unremarkable Integumentary: Unremarkable Neurological: Unremarkable Lymphatics: Unremarkable Physical Examination - Physical Exam General: Alert, In no apparent distress, Cooperative HEENT: Atraumatic, Normocephalic Neck: Supple Respiratory: Clear to auscultation bilaterally, Normal air movement Cardiovascular: Irregular heart rate/rhythm (Atrial fibrillation rate around 90- 1 20) Gastrointestinal: Normal bowel sounds, No tenderness, No masses, No rebound, No guarding Musculoskeletal: No tenderness, No warmth Integumentary: No tenderness/swelling Neurological: Normal speech, Normal strength at 5/5 x4 extr, Normal tone, Normal affect - Studies Laboratory Data (last 24 hrs) 07/10/20 14:55: PT 13.2 H, INR 1.15 07/10/20 14:55: WBC 8.80, Hgb 12.7, Hct 37.8, Plt Count 177 07/10/20 14:55: Sodium 137, Potassium 3.8, BUN 12, Creatinine 0.90, Glucose 125 H, Magnesium 2.0, Total Bilirubin 0.7, AST 23, ALT 26, Alkaline Phosphatase 81, Lipase 101 Assessment and Plan - Plan Impression: Chest pain with atrial fibrillation and RVR with history of prior watchman procedure Hypertension Hyperlipidemia History of CVA Dementia Plan: Patient will be admitted for further evaluation and treatment. Will monitor cardiac enzymes and telemetry. Troponin slightly elevated at 0.05. Due to her atrial fibrillation and slight elevation in troponin, will start heparin protocol for PE. Case discussed with cardiology. Await recommendation. Anticipate possible need for further evaluation tomorrow. We will keep the patient n.p.o. after midnight. Continue metoprolol. Provide IV medication for rate control. Continue Lipitor, continue lisinopril. Will review and adjust medication accordingly. TSH and free T4 abnormal. Will check to see if pat shraddha's is on medication for thyroid as this may need to be adjusted. Await further recommendations from cardiology. Will also order echocardiogram to further evaluate. Anticipate improvement over the next 24 to 48 hours.. Discharge Plan: Home Plan to discharge in: 24 Hours - Advance Directives Does patient have a Living Will: No Does patient have a Durable POA for Healthcare: No - Code Status/Comfort Care Code Status Assessed: No (This will need to be assessed) Time Spent Managing Pts Care (In Minutes): 55
--- NOTE | 2020-07-10 17:30 | RAD REPORT ---
EXAM DESCRIPTION: CT - Angio Aorta For Dissection - 07/10/2020 4:48 pm CLINICAL HISTORY: Dissection;PE COMPARISON: Portable chest same date TECHNIQUE: Dynamically enhanced 3 mm thick images of the chest, abdomen, and pelvis were obtained du ring administration of approximately 150mL Isovue 370 IV contrast. Sagittal and coronal reconstructio n images were generated using MIP and reviewed. Exam utilizes a protocol to evaluate entire course of the aorta. All CT scans are performed using dose optimization technique as appropriate and may include automated exposure control or mA/KV adjustment according to patient size. FINDINGS: Aortic arch is 3 vessel configuration with no great vessel origin stenosis. Vertebral cara ry origins are unremarkable. Common carotid arteries are tortuous. No aortic aneurysm is present. No dissection seen. Atherosclerotic calcifications in the arch are mild and overall aortic calcification s are minimal given the patient's age. Descending thoracic aorta is tortuous. Upper abdominal aorta i s tortuous as well. Atherosclerotic calcifications are present in the distal most abdominal aorta. To rtuous aorta is 2.6 cm at the ira of the diaphragm tapering to 2.0 cm at the bifurcation. No pulmonary artery filling defect. Pulmonary arteries are prominent. Cardiomegaly is present primari ly biatrial enlargement. No pericardial effusion. No focal mass or consolidation of the lung parenchyma. Interstitial edema is certainly possible. Resp iratory motion accentuates the interstitial pattern. No pleural thickening, pleural effusion or pneum othorax. No abnormal mediastinal or hilar mass or lymphadenopathy seen. No chest wall mass or abnormal axillar y lymphadenopathy. Celiac, SMA and renal arteries show no suspicious findings. Solid abdominal viscera and bowel show no emergent findings. Bilateral renal cortical thinning present. Pyelonephritis or mass lesion not susp ected. No mass or abnormal lymphadenopathy. No free air or pneumatosis. Trace fluid in the dependent portion of the pelvis not likely significant. No acute GI findings seen. Uterus is absent or atrophi c. Contracted urinary bladder shows no suspicious finding. Prominent vertebral body and disc degenerative changes are present. No compression fracture or acute vertebral finding. There is accentuated kyphosis of the upper lumbar spine. IMPRESSION: Negative CT scan of the aorta for aneurysm, dissection or acute finding. Nonacute findin gs of the aorta are detailed in the body of the report. Cardiomegaly seen primarily as biatrial enlargement. Component of failure or volume overload cannot b e excluded. Elsewhere on the examination no acute or emergent finding identifiable. No other significant findings on chest, abdomen and upper pelvis examination.
[2020-07-10] MEDS: ASPIRIN EC 81 MG TAB PO SCH (19:25)
[2020-07-10] MEDS ORDERED: HEPARIN/D5W 25,000 UNIT/500 ML BAG IV SCH (19:25)
[2020-07-10] MEDS ORDERED: METOPROLOL TARTRATE 5 MG/5 ML INJ IV PRN (19:25)
--- NOTE | 2020-07-10 19:26 | CON ---
Date of Consultation: 07/10/2020 Reason For Consultation: Chest pain and atrial fibrillation with rapid ventricular response. History Of Present Illness: An 80-year-old female with history of prior CVA, dementia, hypertension, dyslipidemia, atrial fibrillation, history of LA appendage closure of Watchman, presented with chest pain under the breast, severe, no radiation. In the ER, found to be in atrial fibrillation with rap id ventricular response, responded well to heart rate control. At the time I evaluated her, her ches t pain has subsided. Past Medical History: As outlined above in HPI. Medications: Refer to reconciliation sheet for detailed list. Allergies: PENICILLIN. Family History: No premature coronary artery disease or cancer. Social History: Does not smoke or drink. Does not use any drugs. Review of Systems: All systems reviewed and they were negative except what mentioned in the HPI. Physical Examination: Vital Signs: Reviewed, stable. Head and Neck: Pupils are equal, reactive to light. Intact eye movements. No JVD. No cervical lym phadenopathy. Neck: Supple. Thyroid is not enlarged. Lungs: Clear to auscultation bilaterally. No rhonchi, rales, or crackles. No accessory muscle use. Heart: Irregularly irregular. No extra sounds. Abdomen: Soft, nontender. Bowel sounds positive. No organomegaly. No masses or hernia. No rigidi ty or rebound. Extremities: No edema, clubbing, or cyanosis. Intact pulses. Skin: No rash noted. Neurologic: Alert, awake with no acute focal deficits appreciated. Investigations: Sodium 137, creatinine 0.9. Troponin is 0.05. BNP is 3587. TSH is 4.8. INR is 1. 15. Hemoglobin 12.7, white blood cell count is 8.8. CTA chest, no acute abnormalities. Assessment And Plan: 1.Atrial fibrillation with rapid ventricular response. Recommend to load with amiodarone IV, give 1 50 mg over 10 minutes and then 1 mg/minute for 6 hours and then 0.5 mg/minute for the remainder of 24 hours and introduce metoprolol 25 mg 3 times a day by mouth and adjust as needed. The patient has a Watchman and does not require anticoagulation for the atrial fibrillation purposes. 2.Chest pain with borderline elevated troponin. Please trend cardiac enzymes, obtain echocardiogram and heart rate control as above, start on aspirin. Further plan will be recommended based on the ca rdiac enzymes results and echo. SR/MODL Voice ID: [id number] Report ID: [id number]
[2020-07-10] MEDS: METOPROLOL TAR 50 MG TAB PO SCH (20:14)
[2020-07-10] MEDS ORDERED: ASPIRIN 81 MG CHEWABLE TABLET ONE (20:28)
[2020-07-10] MEDS ORDERED: ATORVASTATIN 20 MG TAB ONE (20:29)
[2020-07-10 20:30] LABS: CKMB Creatine Kinase MB 1.3 ng/mL (0.3-3.6); Troponin I 0.04 ng/mL (0.0-0.045)
[2020-07-10] MEDS ORDERED: ATORVASTATIN 20 MG TAB PO SCH (21:00)
[2020-07-10] MEDS ORDERED: ATORVASTATIN 40 MG TAB PO SCH (21:00)
[2020-07-11 00:48] VITALS: BMI 36.9
[2020-07-11 04:20] LABS: CKMB Creatine Kinase MB 1.2 ng/mL (0.3-3.6); Magnesium 2.1 mg/dL (1.8-2.4); Potassium 4.3 mmol/L (3.5-5.1); Troponin I 0.03 ng/mL (0.0-0.045)
[2020-07-11 04:38] LABS: Absolute Lymphocytes (CBC) 2.4 K/uL (0.7-4.9); Basophils % 0.8 % (0-1.3); Hematocrit 36.1 % (36.0-45.0); Lymphocytes % 28.4 % (15.3-44.8); MPV 9.4 fL (7.6-11.3); RBC Red Blood Cell Count 3.77 M/uL (3.86-4.86)
[2020-07-11] MEDS: METOPROLOL TAR 50 MG TAB PO SCH (05:17)
[2020-07-11] MEDS: ONDANSETRON 4 MG/2 ML VIAL IV PRN ×2 (05:18→15:59)
--- NOTE | 2020-07-11 08:01 | P.DS ---
Admission Date: 07/10/20 Discharge Date: 07/11/20 Primary Care Provider: Dr. Monk Disposition: ROUTINE DISCHARGE Discharge Condition: GOOD Reason for Admission: Chest pain Consultations: Cardiology-Dr. Camp Procedures: COVID: Negative CXR: FINDINGS: No peripheral mass or consolidation. Retrocardiac left base is lo ited by body habitus and portable technique. Heart and vasculature are normal. No measurable pleural effusion and no pneumothorax. Bilateral significant shoulder joint degenerative change present matching comparison. No acute bone findings. No acute aortic findings suspected. IMPRESSION: No acute cardiopulmonary process. Retrocardiac left base remains limited in assessment. CT scan: FINDINGS: Aortic arch is 3 vessel configuration with no great vessel origin stenosis. Vertebral artery origins are unremarkable. Common carotid arteries are tortuous. No aortic aneurysm is present. No dissection seen. Atherosclerotic calcifications in the arch are mild and overall aortic calcifications are minimal given the patient's age. Descending thoracic aorta is tortuous. Upper abdominal aorta is tortuous as well. Atherosclerotic calcifications are present in the distal most abdominal aorta. Tortuous aorta is 2.6 cm at the ira of the diaphragm tapering to 2.0 cm at the bifurcation. No pulmonary artery filling defect. Pulmonary arteries are prominent. Cardiomegaly is present primarily biatrial enlargement. No pericardial effusion. No focal mass or consolidation of the lung parenchyma. Interstitial edema is certainly possible. Respiratory motion accentuates the interstitial pattern. No pleural thickening, pleural effusion or pneumothorax. No abnormal mediastinal or hilar mass or lymphadenopathy seen. No chest wall mass or abnormal axillary lymphadenopathy. Celiac, SMA and renal arteries show no suspicious findings. Solid abdominal viscera and bowel show no emergent findings. Bilateral renal cortical thinning present. Pyelonephritis or mass lesion not suspected. No mass or abnormal lymphadenopathy. No free air or pneumatosis. Trace fluid in the dependent portion of the pelvis not likely significant. No acute GI findings seen. Uterus is absent or atrophic. Contracted urinary bladder shows no suspicious finding. Prominent vertebral body and disc degenerative changes are present. No compression fracture or acute vertebral finding. There is accentuated kyphosis of the upper lumbar spine. IMPRESSION: Negative CT scan of the aorta for aneurysm, dissection or acute finding. Nonacute findings of the aorta are detailed in the body of the report. Cardiomegaly seen primarily as biatrial enlargement. Component of failure or volume overload cannot be excluded. Elsewhere on the examination no acute or emergent finding identifiable. No other significant findings on chest, abdomen and upper pelvis examination. Medical Problem List: Chest pain with atrial fibrillation and RVR with history of prior LA appendage closure with watchman procedure Hypertension Hyperlipidemia History of CVA Dementia Depression Brief History of Present Illness: 80-year-old female with history of prior CVA, dementia, hypertension, hyperlipidemia and atrial fibrillation. Patient with history of prior watchman procedure now off anticoagulation therapy. Patient presented to the ER with chest pain. Chest pain was mainly to that the left chest wall area. This has been recurrent. She went to her PCP recently to get this evaluated. X-ray unremarkable. She came to the ER again today with chest pain. Patient had atrial fibrillation with RVR. Rate around 130. In the ER patient was evaluated. Chest x-ray unremarkable. Troponin 0 0.05. BNP greater than 3000. CBC unremarkable. BMP unremarkable. TSH 4.8, free T4 1.48. Patient admitted for further evaluation and treatment. Hospital Course: Patient presented with chest pain and atrial fibrillation with RVR. Patient with history of chronic atrial fibrillation with prior LA appendage closure with watchman procedure. Initial troponin 0 0.05. Repeat and serial enzymes unremarkable. Patient seen and evaluated by cardiology. Echocardiogram obtained. No further chest pain noted. Heart rate and blood pressure better controlled with increased dose of metoprolol. Metoprolol was adjusted. At discharge patient without significant chest pain. Blood pressure improved. Rate and rate better controlled along with blood pressure. Patient remains in atrial fibrillation but rate controlled. Cardiology recommends no further intervention at this time. No need for chronic anticoagulation therapy due to her history of LA appendage closure with watchman procedure. Patient now in normal sinus rhythm. At discharge patient will continue with metoprolol 100 mg 1 pill twice daily. Recommend to maintain blood pressure less than 130/80. Further adjustment can be done by her PCP. Recommend follow-up with cardiology in 1 week to follow-up his hospitalization and continue her care. Patient with hypertension. As mentioned above metoprolol has been adjusted. Patient will continue with metoprolol 100 mg 1 pill twice daily. Recommend to maintain blood pressure less than 130/80. Recommend to maintain heart rate below 100. Further adjustment may be required. This can be done with the help of her PCP and cardiology. Patient with hyperlipidemia. At discharge she will continue with her m edication. LDL in the normal range at 38. Patient with history of CVA and dementia. Patient overall stable. At discharge she will continue with her current medication. Other labs include a TSH of 4.8 and free T4 at 1.4. She will continue with her current dose of thyroid medication. Recommend to recheck labTSH and free T4 in 4 to 6 weeks. If still abnormal will need to consider endocrinology evaluation as an outpatient to further valuate. Patient with depression/dementia. She will continue with her medications. Vital Signs/Physical Exam: Temp Pulse Resp BP Pulse Ox 98 F 80 18 172/85 H 98 07/11/20 03:00 07/11/20 05:17 07/11/20 03:00 07/11/20 05:17 07/11/20 03:00 General: Alert, In no apparent distress, Cooperative HEENT: Atraumatic Neck: Supple Respiratory: Clear to auscultation bilaterally, Normal air movement Cardiovascular: Irregular heart rate/rhythm (A. fib rate controlled) Gastrointestinal: Normal bowel sounds, No tenderness, No masses, No rebound, No guarding Integumentary: No tenderness/swelling Neurological: Normal strength at 5/5 x4 extr, Normal tone, Normal affect Laboratory Data at Discharge: WBC 8.40 K/uL (4.3-10.9) 07/11/20 03:36 Hgb 12.4 g/dL (12.0-15.0) 07/11/20 03:36 Hct 36.1 % (36.0-45.0) 07/11/20 03:36 Plt Count 132 K/uL (152-406) L D 07/11/20 03:36 PT 13.2 SECONDS (9.5-12.5) H 07/10/20 14:55 INR 1.15 07/10/20 14:55 APTT 60.5 SECONDS (24.3-36.9) H 07/11/20 03:56 Sodium 138 mmol/L (136-145) 07/11/20 03:36 Potassium 4.3 mmol/L (3.5-5.1) 07/11/20 03:36 BUN 12 mg/dL (7-18) 07/11/20 03:36 Creatinine 0.82 mg/dL (0.55-1.3) 07/11/20 03:36 Glucose 102 mg/dL (74-106) 07/11/20 03:36 Magnesium 2.1 mg/dL (1.8-2.4) 07/11/20 03:36 Total Bilirubin 0.7 mg/dL (0.2-1.0) 07/10/20 14:55 AST 23 U/L (15-37) 07/10/20 14:55 ALT 26 U/L (12-78) 07/10/20 14:55 Alkaline Phosphatase 81 U/L (45-117) 07/10/20 14:55 Troponin I 0.03 ng/mL (0.0-0.045) 07/11/20 03:36 Triglycerides 95 mg/dL (<150) 07/11/20 03:36 Cholesterol 103 mg/dL (<200) 07/11/20 03:36 HDL Cholesterol 46 mg/dL (40-60) 07/11/20 03:36 Cholesterol/HDL Ratio 2.24 07/11/20 03:36 Lipase 101 U/L (73-393) 07/10/20 14:55 Home Medications: Atorvastatin Calcium 40 mg PO DAILY 07/11/20 Citalopram Hydrobromide [Celexa] 20 mg PO DAILY 07/11/20 Donepezil HCl 5 mg PO DAILY 07/11/20 Levothyroxine [Synthroid*] 112 mcg PO [id number] 07/11/20 Metoprolol Tartrate 100 mg PO BID #60 tablet 07/11/20 New Medications: Metoprolol Tartrate 100 mg PO BID #60 tablet Physician Discharge Instructions: Patient presented with chest pain and atrial fibrillation with RVR. Patient with history of chronic atrial fibrillation with prior LA appendage closure with watchman procedure. Initial troponin 0 0.05. Repeat and serial enzymes unremarkable. Patient seen and evaluated by cardiology. Echocardiogram obtained. No further chest pain noted. Heart rate and blood pressure better controlled with increased dose of metoprolol. Metoprolol was adjusted. At discharge patient without significant chest pain. Blood pressure improved. Rate and rate better controlled along with blood pressure. Patient remains in atrial fibrillation but rate controlled. Cardiology recommends no further intervention at this time. No need for chronic anticoagulation therapy due to her history of LA appendage closure with watchman procedure. Patient now in normal sinus rhythm. At discharge patient will continue with metoprolol 100 mg 1 pill twice daily. Recommend to maintain blood pressure less than 130/80. Further adjustment can be done by her PCP. Recommend follow-up with cardiology in 1 week to follow-up his hospitalization and continue her care. Patient with hypertension. As mentioned above metoprolol has been adjusted. Patient will continue with metoprolol 100 mg 1 pill twice daily. Recommend to maintain blood pressure less than 130/80. Recommend to maintain heart rate below 100. Further adjustment may be required. This can be done with the help of her PCP and cardiology. Patient with hyperlipidemia. At discharge she will continue with her medication. LDL in the normal range at 38. Patient with history of CVA and dementia. Patient overall stable. At discharge she will continue with her current medication. Other labs include a TSH of 4.8 and free T4 at 1.4. She will continue with her current dose of thyroid medication. Recommend to recheck labTSH and free T4 in 4 to 6 weeks. If still abnormal will need to consider endocrinology evaluation as an outpatient to further valuate. Patient with depression/dementia. She will continue with her medications. Diet: AHA Activity: Ad dimple Followup: Diane Monk DO [Primary Care Provider] - Time spent managing pt's care (in minutes): 55
[2020-07-11] MEDS ORDERED: METOPROLOL TAR 50 MG TAB PO SCH (09:00)
[2020-07-11] MEDS ORDERED: lisinopriL 10 MG TAB PO SCH (09:00)
[2020-07-11] MEDS: ACETAMINOPHEN 500 MG TAB PO PRN ×2 (09:25→15:59)
[2020-07-11] MEDS: ASPIRIN EC 81 MG TAB PO SCH (09:26)
--- NOTE | 2020-07-11 16:16 | RAD REPORT ---
EXAM DESCRIPTION: RAD - Chest Single View - 07/11/2020 3:54 pm CLINICAL HISTORY: pain below right breast radiates to back COMPARISON: Portable July 10 TECHNIQUE: AP portable chest image was obtained 07/11/2020 3:54 pm . FINDINGS: Lung volumes are decreased compared to the prior study. Vasculature and lung markings are accentuated in the low lung volume study. Heart size is still normal range. Trachea is midline. Retro cardiac left base assessment is limited but not clearly different from comparison. No measurable pleural effusion and no pneumothorax. No acute bony abnormality seen. Prominent bilate ral shoulder degenerative change. No acute aortic findings suspected. IMPRESSION: Limited shallow inspiration with no peripheral mass or consolidation. Vasculature and lung markings are accentuated slightly by the low lung volume potentially masking erin y minimal edema.
[2020-07-11 16:32] VITALS: BP 172/96; TEMP 97.1
--- NOTE | 2020-07-11 16:36 | EKG ---
Test Date: 2020-07-10 Test Time: 14:25:13 [place] Supervisor: APRIL MEASUREMENT RESULTS: Intervals: Rate: 99 MD: QRSD: 96 QT: 388 QTc: 497 [place]: P: MD: QRS: 87 T: 247 INTERPRETIVE STATEMENTS: Atrial fibrillation Incomplete right bundle branch block Septal infarct, age undetermined ST & T wave abnormality, consider inferolateral ischemia or digitalis effect Abnormal ECG Compared to ECG 01/24/2020 11:13:48 Incomplete right bundle-branch block now present Myocardial infarct finding now present Left bundle-branch block no longer present ST (T wave) deviation still present Possible ischemia still present Electronically Signed On 07-11-20 16:33:17 CDT by Spencer Obrien
[2020-07-11 17:16] VITALS: O2SAT 93
--- NOTE | 2020-07-12 08:25 | ECHO ---
HEIGHT: 5 ft 4 in WEIGHT: 215 lb 2 oz DATE OF STUDY: 07/11/[address]: Asim Montoya DO 2-DIMENSIONAL: YES M.MODE: YES DOPPLER: YES COLOR FLOW: YES TDS: YES PORTABLE: NO DEFINITY: NO BUBBLE STUDY: NO DIAGNOSIS: CHEST PAIN, ATRIAL FIBRILLATION WITH RAPID VENTRICULAR RESPONSE CARDIAC HISTORY: CATHERIZATION: YES SURGERY: NO PROSTHETIC VALVE: NO PACEMAKER: NO MEASUREMENTS (cm) DIASTOLIC (NORMALS) SYSTOLIC (NORMALS) IVSd 1.2 (0.6-1.2) LA Diam 4.0 (1.9-4.0) LVEF 56% LVIDd 4.1 (3.5-5.7) LVIDs 2.9 (2.0-3.5) %FS 29% LVPWd 1.3 (0.6-1.2) Ao Diam 2.3 (2.0-3.7) 2 DIMENSIONAL ASSESSMENT: RIGHT ATRIUM: NORMAL LEFT ATRIUM: NORMAL RIGHT VENTRICLE: NORMAL LEFT VENTRICLE: NORMAL TRICUSPID VALVE: NORMAL MITRAL VALVE: NORMAL PULMONIC VALVE: NORMAL AORTIC VALVE: NORMAL PERICARDIAL EFFUSION: NONE AORTIC ROOT: NORMAL LEFT VENTRICULAR WALL MOTION: NORMAL DOPPLER/COLOR FLOW: NORMAL COMMENTS: NORMAL 2D ECHOCARDIOGRAM WITH DOPPLER. NO WALL MOTION ABNORMALITY. NO EFFUSION. TECHNOLOGIST: Javier RASMUSSEN
--- NOTE | 2020-07-13 12:23 | PN ---
Date of Progress Note: 07/11/2020 Subjective: Ms. Grace was seen by Dr. Camp and Dr. Montoya for atrial fibrillation and rapid ventr icular response. She has a history of dementia, hypertension, CVA, dyslipidemia, atrial fibrillation , history of atrial appendage closure with Watchman. She had presented with chest pain and atrial fi brillation with rapid ventricular response. Amiodarone was suggested. The patient was on metoprolol . Echocardiogram that was done on 07/11/2020 was perfectly normal. On 07/11/2020, her pulse rate jones d gone down to 68 on metoprolol without any amiodarone. I discussed the case with Dr. Montoya. I thi nk I would prefer the patient does not get an amiodarone for chronic atrial fibrillation as long as h er rate is controlled with metoprolol. She does not need anticoagulation because of Watchman. I wou ld continue metoprolol, Lipitor, aspirin, lisinopril, and her other home medications. I am comfortab le with her going home whenever it is okay with Dr. Montoya. JESSICA/REYNALDO Voice ID: [id number] Report ID: [id number]
== END 2020-07-11 17:49 | disposition home or self-care (01) ==
LOC: ER 13:49 → ERHOLD 17:12 → 4TH 21:23
PROVIDERS: ADMIT Family Medicine; ATTEND Family Medicine
DX: R07.9 Chest pain, unspecified (principal); I48.20 Chronic atrial fibrillation, unspecified; I48.92 Unspecified atrial flutter; I10 Essential (primary) hypertension; E78.5 Hyperlipidemia, unspecified; F03.90 Unspecified dementia, unspecified severity, without behavioral disturbance, psychotic disturbance, mood disturbance, and anxiety; F32.9 Major depressive disorder, single episode, unspecified; Z86.73 Personal history of transient ischemic attack (TIA), and cerebral infarction without residual deficits; Z88.0 Allergy status to penicillin; Z20.822 Contact with and (suspected) exposure to COVID-19
CPT/HCPCS: 93005; 93306; 85025 ×2; 80048 ×2; 36415; 83735 ×2; 82550 ×2; 85610; 80061; 80076; 85730 ×2; 84443; 84484 ×3; 82553 ×2; 84439; 83690; 83880; 71275; 74175; 71045 ×2; 96375; 96374; 99285; U0003; Q9967; J1644 ×3; J2270; J7030; J2405 ×3; G0378 ×3

== ENCOUNTER 2021-11-08 14:59 | Emergency (ER) | payer OTHER ==
--- OUTSIDE RECORDS SUMMARY | 2021-11-08 15:04 | XMS REPORT | Continuity of Care Document ---
:1940 Author Organization [facility] t Address [address] [place] [address] Care Team Providers Name Role Phone RIVKA DAT SANTA Primary Care Physician Unavailable Diane Monk Attending Clinician Unavailable Evelyn Cox Attending Clinician Unavailable Sidney Guardado Attending Clinician Unavailable HALINA KURTZ Attending Clinician Unavailable Halina Kurtz DO Attending Clinician Doctor Unassigned, [place] Attending Clinician Unavailable BETSY GANN Attending Clinician Unavailable BETSY GANN Attending Clinician Unavailable Kaleb Majano MD Attending Clinician LUKAS HENRY Attending Clinician Unavailable CHAIM CABRERA Attending Clinician Unavailable SMILEY CHRISTIANSON Attending Clinician Unavailable HALINA KURTZ Admitting Clinician Unavailable LUKAS HENRY Admitting Clinician Unavailable Payers Payer Name Policy Type Policy Number Effective Date Expiration Date Deb beltran MEDICARE PLAN HMO [id number] - [employer] [facility] [id number] 2017 ADVANTAGE 00:00:00 HMO-POS-[facility] CHOICE [id number] PPO/MEDICARE PPO [employer] MEDICARE [id number] 2020 OUT OF NETWORK 00:00:00 [employer] MEDICARE [id number] 2020 HMO POS 00:00:00 Problems Condition Condition Condition Status Onset Resolution Last Treating Co mments Source Name Details Category Date Date Treatment Clinician Date HTN HTN Disease Active [facility] (hypertens (hypertens 8-30 Co llege ion) ion) 00:00: of 00 Medicin e Other Other Disease Active [facility] chest pain chest pain 3-23 Co llege 00:00: Medicin e SOB SOB Disease Active 2016-03 [facility] (shortness (shortness 1-08 Co llege of breath) of breath) 00:00: of 00 Medicin e Anemia Anemia Disease Active 2016-03 [facility] 1-08 College 00:00: of 00 Medicin e Symptomati Symptomati Disease Active 2016-03 [facility] rush anemia c anemia 0-20 ity of 00:00: [place] [facility] Atrial Atrial Disease Active [facility] fibrillati fibrillati 5-17 Co llege on on 00:00: of (HCCode) (HCCode) 00 Medici n e Dyslipidem Dyslipidem Disease Active B joon ia ia 5-17 College 00:00: 00 Medicin e Obesity Obesity Disease Active 2015-03 Univers (BMI (BMI 1-16 ity of 30-39.9) 30-39.9) 00:00: [place] [facility] Hemorrhagi Hemorrhagi Disease Active 2015-03 [facility]gan c stroke c stroke 1-16 ity of 00:00: [place] 00 Medical Branch 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 [facility] mora Alzheimer' Alzheimer' 1-16 it y of s disease s disease 00:[place] with 00 Medical behavioral behavioral Br anch disturbanc disturbanc e e Encephalop Encephalop Disease Active 2015-03 [facility] athy athy 1-16 ity of 00:00: [place] 00 Medical [facility] Diarrhea Diarrhea Disease Active 2015-03 Unive rs in adult in adult 04-15 ity of patient patient 00:00: [place] 00 [facility] History of History of Disease Active 2015-03 [facility] surgery surgery -16 ity of for for 00:00: [place] 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 Branch Essential Essential Disease Active 2014-03 Uni vers hypertensi hypertensi 04-11 it y of on on 00:00: [place] 00 Medical [facility] Chronic Chronic Disease Active 2014-03 Univers atrial atrial 04-11 ity of fibrillati fibrillati [place] Syncope Syncope Disease Active 2014-03 Univers 04-10 ity of 00:00: [place] 00 [facility] Vascular Vascular Disease Active [facility] dementia dementia 10-12 Colleg e 00:00: of 00 Medicin e Paranoia Paranoia Disease Active [facility] (HCCode) (HCCode) 7 Colleg e 00:00: of 00 Medicin e Hypercalce Hypercalce Disease Active B joon ryland ryland 715 College 00:00: of 00 Medicin e Hyperhomoc Hyperhomoc Disease Active [facility] a[facility]a ysteinemia ysteinemia 715 Co llege (HCCode) (HCCode) 00:00: of 00 Medicin e ICH ICH Disease Recurre [facility] (intracere (intracere nce 9-23 Co llege bral bral 00:00: of hemorrhage hemorrhage 00 Me dicin ) (HCCode) ) (HCCode) e Allergies, Adverse Reactions, Alerts Allergy Allergy Status Severity Reaction(s) Onset Inactive Treating Comm ents Source Name Type Date Date Clinician Latex Propensi Active Other - See 2016-03 Uni vers ty to comments 04-19 ity of adverse 00:00: [place] reaction 00 Medical s Branch LATEX DRUG Active Other-Cmnt 2016-03 Univer s INGREDI 04-19 ity of 00:00: [place] 00 Medical Branch Penicill Propensi Active Swelling 2014-03 Hives, [facility] in G ty to 04-10 etc. College adverse 00:00: of reaction 00 Medicin s to e drug Penicill Propensi Active Swelling 2014-03 Hives, Univ ers in ty to 04-10 etc. ity of adverse 00:00: [place] reaction 00 Medical s Branch PENICILL DRUG Active High Swelling 2014-03 Univer s IN INGREDI 04-10 ity of 00:00: [place] 00 Medical Branch Penicill Propensi Active Swelling 2014-03 Hives, Univ ers in ty to 04-10 etc. ity of adverse 00:00: [place] reaction 00 Medical s Branch Penicill Propensi Active Swelling Whole [facility] ins ty to 10-02 body College adverse 00:00: swelling of reaction 00 Medicin s to e drug PENICILL Allergy Active Swelling [facility] INS 10-02 00:00: 00 Social History Social Habit Start Date Stop Date Quantity Comments Source Exposure to 2021-08-16 2021-08-26 Not sure [facility] SARS-CoV-2 00:00:00 11:18:00 [facility] (event) [place] Alcohol intake 2021-06-05 2021-06-05 Current [facility] Col lege of 00:00:00 00:00:00 non-drinker of Medicine alcohol (finding) Tobacco use and 2015-02-09 2015-02-09 Never used Universit y of exposure 00:00:00 00:00:00 [facility] Cigarette 2013-12-21 2013-12-21 [facility] of pack-years 00:00:00 00:00:00 Medicine Sex Ass[birth year] [facility] Co llege of 00:00:00 00:00:00 Medicine Smoking Status Start Date Stop Date Source Former smoker 2015-02-09 00:00:00 2015-02-09 00:00:00 Univers ty of [facility] Medications Ordered Filled Start Stop Current Ordering Indication Dosage Frequency Signature Comments Components Source Medication Medication Date Date Medication? Clinician (SIG) Name Name meclizine 2021- No 25mg 25 mg, Unive rs (TRAVEL-EAS 08-26 Oral, ity of E 18:15: 17:10 ONCE, 1 [place] (MECLIZINE) 00 :00 dose, On Medi manny ) tablet 25 [place] Branch mg 08/26/21 at 1315, ARELI NaCl 0.9% 2021- No 1000mL at 999 Uni vers (NS) bolus 08-26 mL/hr, ity of infusion 17:30: 18:10 1,000 mL, Franki as 1,000 mL 00 :00 IV Medical Infusion, Branch ONCE, 1 dose, On 08/26/21 at 1230, ARELI hydrochloro 2021- No TAKE 1 [facility] thiazide 08-24 CAPSULE BY Roseanna so (MICROZIDE) 11:14: 00:00 MOUTH of 12.5 MG 36 :00 EVERY DAY Medicin capsule e terbinafine 2021- No 1{tbl} 1 Tablet. [facility] (LAMISIL) 08-24 [place] 250 MG 10:16: 00:00 of tablet 21 :00 Medicin e Prenat-Meth 2021- No as [facility] ylfol-Chol- 08-24 directed Col lege Fish Oil 10:15: 00:00 of ( + 54 :00 Medicin COMPLETE e MULTI) 0.267 & 373 MG THPK acetaminoph 0 Yes Every 6 [facility] en-codeine - hours. [place] (TYLENOL 09:56: of #3) 300-30 08 Medicin MG per e tablet Mirabegron 0 Yes 1{tbl} 1 Tablet. [facility] ER 08-24 [place] (MYRBETRIQ) 09:56: of 25 MG TB24 08 Medicin e olanzapine 0 Yes 1{tbl} 1 Tablet. [facility] (ZYPREXA) 5 08-24 [place] MG tablet 09:56: of 08 Medicin e diphenhydrA 0 Yes 25mg Take 25 mg [facility] MINE - by mouth [place] (BENADRYL) 09:52: every 6 of 25 MG 37 hours as Medicin tablet needed for e Sleep. donepezil 0 Yes 5mg Take 5 mg [facility] (ARICEPT) 08-24 by mouth [facility] ege MG tablet 09:52: nightly. of 37 Medicin e chlorthalid 0 Yes 25mg Take 1 [facility] one 5-27 Tablet by [place] (HYGROTEN) 00:00: mouth of 25 MG 00 daily. Medicin tablet e sulfamethox 2021-0 2021- No TAKE 1 [facility] azole-trime -18 08-24 TABLET BY Co llege thoprim 00:00: 00:00 MOUTH of (BACTRIM 00 :00 TWICE A Medicin DS, SEPTRA DAY FOR 10 e DS) 800-160 DAYS MG per tablet nystatin 0 Yes 1 [facility] (MYCOSTATIN - APPLICATIO Co llege ) cream 00:00: N TO of 00 AFFECTED Medicin AREA/ SKIN e FOLDS EXTERNALLY TWICE A DAY 30 DAYS triamcinolo 0 Yes 1 [facility] ne 5- APPLICATIO [place] (KENALOG) 00:00: N TO of 0.1 % cream 00 AFFECTED Medi jose carlos AREA e NEEDED FOR ITCHING EXTERNALLY TWICE A DAY 30 DAYS Alfuzosin 0 2021- No 1 tablet [facility] HCl 10 MG 330 - immediatel Col lege TB24 00:00: 04:59 y after of 00 :00 the same Medicin meal e hydrochloro 0 2021- No 12.5mg Take 12.5 [facility] thiazide 3-08 03-08 mg by [place] (HYDRODIURI 11:01: 00:00 mouth of L) 25 MG 55 :00 daily. Medicin tablet e Prenat-Meth Yes as [facility] ylfol-Chol- 3-08 directed Roseanna ege Fish Oil 10:41: of ( + 59 Medicin COMPLETE e MULTI) 0.267 & 373 MG THPK diphenhydrA 0 Yes 25mg Take 25 mg [facility] MINE 3-08 by mouth [place] (BENADRYL) 10:41: every 6 of 25 MG 58 hours as Medicin tablet needed for e Sleep. donepezil 0 Yes 5mg Take 5 mg [facility] (ARICEPT) 5 3-08 by mouth Roseanna ege MG tablet 10:41: nightly. of 58 Medicin e atorvastati 0 Yes [id number] TAKE 1 Jak n (LIPITOR) 3-08 TABLET BY Col lege 40 MG 00:00: MOUTH of tablet 00 EVERYDAY Medicin AT BEDTIME e metoprolol 0 Yes [id number] TAKE 1 [facility] (LOPRESSOR) 3-08 TABLET BY Col lege 100 MG 00:00: MOUTH of tablet 00 TWICE A Medicin DAY e chlorthalid 0 Yes 25mg Take 1 [facility] one 3-08 Tablet by [place] (HYGROTEN) 00:00: mouth of 25 MG 00 daily. Medicin tablet e atorvastati Yes [id number] TAKE 1 Jak n (LIPITOR) 3-08 TABLET BY Col lege 40 MG 00:00: MOUTH of tablet 00 EVERYDAY Medicin AT BEDTIME e metoprolol Yes [id number] TAKE 1 [facility] (LOPRESSOR) 3-08 TABLET BY Col lege 100 MG 00:00: MOUTH of tablet 00 TWICE A Medicin DAY e chlorthalid 2021- No 25mg Take 1 [facility] one 3-08 05-27 Tablet by [place] (HYGROTEN) 00:00: 00:00 mouth of 25 MG 00 :00 daily. Medicin tablet e estradiol Yes [facility] (ESTRACE) 3-04 [place] 0.1 MG/GM 00:00: of vaginal 00 Medicin cream e nitrofurant Yes TAKE 1 [facility] oin, 2-28 CAPSULE BY [place] macrocrysta 00:00: MOUTH of l-monohydra 00 EVERY 12 Medi jose carlos te, HOURS WITH e (MACROBID) FOOD FOR 7 100 MG DAYS capsule predniSONE 2021- No 2 TABLETS [facility] (DELTASONE) 2- 05-27 DAILYX 5 Col lege 10 MG 00:00: 00:00 DAYS THEN of tablet 00 :00 1 TABLET Medicin DAILY X 5 e DAYS WITH FOOD /MILK ORALLY ONCE A DAY metoprolol 0 2021- No [id number] TAKE 1 Jak (LOPRESSOR) 2-22 03-08 TABLET BY Co llege 100 MG 00:00: 00:00 MOUTH of tablet 00 :00 TWICE A Medicin DAY e atorvastati 2021-0 2021- No [id number] TAKE 1 Jak n (LIPITOR) 2-18 03-08 TABLET BY Co llege 40 MG 00:00: 00:00 MOUTH of tablet 00 :00 EVERYDAY Medicin AT BEDTIME e atorvastati 2020- No 40mg Take 40 mg Jak n (LIPITOR) 4-14 04-14 by mouth Col lege 40 MG 17:24: 00:00 at of tablet 11 :00 bedtime. Medicin e Prenat-Meth Yes as Jak ylfol-Chol- -14 directed Roseanna ege Fish Oil 16:56: of ( + 40 Medicin COMPLETE e MULTI) 0.267 & 373 MG THPK donepezil Yes 5mg Take 5 mg [facility] (ARICEPT) 5 -14 by mouth Roseanna ege MG tablet 16:56: nightly. of 40 Medicin e diphenhydrA Yes 25mg Take 25 mg Jak MINE -14 by mouth [place] (BENADRYL) 16:53: every 6 of 25 MG 43 hours as Medicin tablet needed for e Sleep. lisinopril 2020- No 10mg Take 10 mg Jak (PRINIVIL, 07-12 by mouth Roseanna egpepe ZESTRIL) 10 16:52: 00:00 daily. of MG tablet 48 :00 Medicin e gabapentin 2020- No 300mg Take 300 [facility] (NEURONTIN) 07-1214 mg by [facility] e 300 MG 16:52: 00:00 mouth 3 of capsule 15 :00 times Medicin daily. e escitalopra 2020- No 20mg Take 20 mg Jak m (LEXAPRO) 07-1214 by mouth Col lege 20 MG 16:52: 00:00 daily. of tablet 06 :00 Medicin e Cholecalcif 2020- No Take by Kurt georges stevan 07-1214 mouth. [place] (VITAMIN 16:51: 00:00 of D3) 1000 48 :00 Medicin UNITS TABS e amlodipine 2020- No 5mg Take 5 mg [facility] (NORVASC) 5 -12 07-14 by mouth Col lege MG tablet 16:51: 00:00 daily. of 32 :00 Medicin e hydrochloro Yes 12.5mg Take 12.5 Jak thiazide 4-14 mg by [place] (HYDRODIURI 16:47: mouth of L) 25 MG 54 daily. Medicin tablet e atorvastati Yes [id number] 40mg Take 1 [facility] n (LIPITOR) 4-14 Tablet by Col lege 40 MG 00:00: mouth at of tablet 00 bedtime. Medicin e metoprolol Yes [id number] 100mg Take 1 Jak (LOPRESSOR) 4-14 Tablet by Col lege 100 MG 00:00: mouth two of tablet 00 times Medicin daily. e metoprolol 2020- No 100mg Take 100 [facility] (LOPRESSOR) 4-13 04-14 mg by Colleg e 100 MG 00:00: 00:00 mouth two of tablet 00 :00 times Medicin daily. e Terbinafine Terbinafine 2019- No Kin [place] 1 tablet Common HCl HCl 12-15 [facility] 00:00: 00:00 - [facility] 00 :00 [facility] CARBIDOPA-L 2018-03 Yes TAKE 1 Univ ers EVODOPA 1-11 TABLET BY ity of 25-100 mg 00:00: MOUTH FOUR [place] tablet 00 TIMES A Medical DAY Branch CARBIDOPA-L 2018-03 Yes TAKE 1 Univ ers EVODOPA 1-11 TABLET BY ity of 25-100 mg 00:00: MOUTH FOUR [place] tablet 00 TIMES A Medical DAY Branch CARBIDOPA-L 2018-03 Yes TAKE 1 Univ ers EVODOPA 1-11 TABLET BY ity of 25-100 mg 00:00: MOUTH FOUR [place] tablet 00 TIMES A Medical DAY Branch CARBIDOPA-L 2018-03 Yes TAKE 1 Univ ers EVODOPA 1-11 TABLET BY ity of 25-100 mg 00:00: MOUTH FOUR [place] tablet 00 TIMES A Medical DAY Branch escitalopra 2017-03 Yes 20mg Take 20 mg Univers m oxalate 1-16 by mouth ity of (LEXAPRO) 20:29: daily. [place] 20 mg 27 Medical tablet Branch escitalopra 2017-03 Yes 20mg Take 20 mg Univers m oxalate 1-16 by mouth ity of (LEXAPRO) 20:29: daily. [place] 20 mg 27 Medical tablet Branch metoprolol 2017-03 Yes 25mg Take 25 mg U nivers tartrate 25 1-16 by mouth 2 it y of mg tablet 20:26: (two) [place] 35 times Medical daily. Branch ferrous 2017-03 Yes 325mg Take 325 Unive rs sulfate 1-16 mg by ity of (IRON) 325 20:26: mouth [place] mg (65 mg 35 daily with Medi manny iron) SR breakfast. Bran h capsule B Complex 2018-1 Yes Take by Unive rs Vitamins (B 1-16 mouth. ity of COMPLEX 1) 20:26: [place] tablet 35 Medical Branch diphenhydrA 2017-03 Yes 25mg Take 25 mg Univers MINE 1-16 by mouth ity of (BENADRYL) 20:26: every 6 [place] 25 mg 35 (six) Medical capsule hours as Branch needed for Allergies. metoprolol 2017-03 Yes 25mg Take 25 mg U nivers tartrate 25 1-16 by mouth 2 it y of mg tablet 20:26: (two) [place] 35 times Medical daily. Branch ferrous 2017-03 Yes 325mg Take 325 Unive rs sulfate 1-16 mg by ity of (IRON) 325 20:26: mouth [place] mg (65 mg 35 daily with Medi manny iron) SR breakfast. Branc h capsule B Complex 2017-03 Yes Take by Unive rs Vitamins (B 1-16 mouth. ity of COMPLEX 1) 20:26: [place] tablet 35 Medical Branch diphenhydrA 2017-03 Yes 25mg Take 25 mg Univers MINE 1-16 by mouth ity of (BENADRYL) 20:26: every 6 [place] 25 mg 35 (six) Medical capsule hours as Branch needed for Allergies. OLANZapine 2017-03 Yes 10mg Take 10 mg U nivers (ZYPREXA) 1-16 by mouth ity of 20 mg 20:25: at [place] tablet 13 bedtime. Medical Branch OLANZapine 2017-03 Yes 10mg Take 10 mg U nivers (ZYPREXA) 1-16 by mouth ity of 20 mg 20:25: at [place] tablet 13 bedtime. Medical Branch gabapentin 2017-03 Yes 300mg Take 300 Un lucy (NEURONTIN) 1-16 mg by ity of 300 mg 20:21: mouth 3 [place] capsule 36 (three) Medical times Branch daily. atorvastati 2017-03 Yes 40mg Take 40 mg Univers n (LIPITOR) 1-16 by mouth ity of 40 mg 20:21: at [place] tablet 36 bedtime. Medical Branch Cholecalcif 2017-03 Yes 1000U Take 1,000 Univers stevan, 1-16 Units by ity of Vitamin D3, 20:21: mouth [place] (VITAMIN 36 daily. Medical D3) 1,000 Branch unit capsule risperiDONE 2017-03 Yes 2mg Take 2 mg U nivers (RISPERDAL) 1-16 by mouth ity of 2 mg tablet 20:21: daily. [facility] 36 [facility] Branch pantoprazol 2017-03 Yes 40mg Take 40 mg Univers e 1-16 by mouth 2 ity of (PROTONIX) 20:21: (two) [place] 40 mg EC 36 times Medical tablet daily. Branch oxybutynin 2017-03 Yes 5mg Take 5 mg Un lucy chloride 5 1-16 by mouth 2 ity of mg tablet 20:21: (two) [place] 36 times Medical daily. Branch gabapentin 2017-03 Yes 300mg Take 300 Un lucy (NEURONTIN) 1-16 mg by ity of 300 mg 20:21: mouth 3 [place] capsule 36 (three) Medical times Branch daily. atorvastati 2017-03 Yes 40mg Take 40 mg Univers n (LIPITOR) 1-16 by mouth ity of 40 mg 20:21: at [place] tablet 36 bedtime. Medical Branch Cholecalcif 2017-03 Yes 1000U Take 1,000 Univers stevan, 1-16 Units by ity of Vitamin D3, 20:21: mouth [place] (VITAMIN 36 daily. [facility] D3) 1,000 Branch unit capsule risperiDONE 2017-03 Yes 2mg Take 2 mg U nivers (RISPERDAL) 1-16 by mouth ity of 2 mg tablet 20:21: daily. [address] Branch pantoprazol 2017-03 Yes 40mg Take 40 mg Univers e 1-16 by mouth 2 ity of (PROTONIX) 20:21: (two) [place] 40 mg EC 36 times Medical tablet daily. Branch oxybutynin 2017-03 Yes 5mg Take 5 mg Un lucy chloride 5 1-16 by mouth 2 ity of mg tablet 20:21: (two) [place] 36 times Medical daily. Branch escitalopra 2017-03 Yes 20mg Take 20 mg Univers m oxalate 1-16 by mouth ity of (LEXAPRO) 14:29: daily. [place] 20 mg 27 Medical tablet Branch escitalopra 2017-03 Yes 20mg Take 20 mg Univers m oxalate 1-16 by mouth ity of (LEXAPRO) 14:29: daily. [place] 20 mg 27 Medical tablet Branch metoprolol 2017-03 Yes 25mg Take 25 mg U nivers tartrate 25 1-16 by mouth 2 it y of mg tablet 14:26: (two) [place] 35 times Medical daily. Branch ferrous 2017-03 Yes 325mg Take 325 Unive rs sulfate 1-16 mg by ity of (IRON) 325 14:26: mouth [place] mg (65 mg 35 daily with Medi manny iron) SR breakfast. Branc h capsule B Complex 2017-03 Yes Take by Unive rs Vitamins (B 1-16 mouth. ity of COMPLEX 1) 14:26: [place] tablet 35 Medical Branch diphenhydrA 2017-03 Yes 25mg Take 25 mg Univers MINE 1-16 by mouth ity of (BENADRYL) 14:26: every 6 [place] 25 mg 35 (six) Medical capsule hours as Branch needed for Allergies. metoprolol 2017-03 Yes 25mg Take 25 mg U nivers tartrate 25 1-16 by mouth 2 it y of mg tablet 14:26: (two) [place] 35 times Medical daily. Branch ferrous 2017-03 Yes 325mg Take 325 Unive rs sulfate 1-16 mg by ity of (IRON) 325 14:26: mouth [place] mg (65 mg 35 daily with Medi manny iron) SR breakfast. Branc h capsule B Complex 2017-03 Yes Take by Unive rs Vitamins (B 1-16 mouth. ity of COMPLEX 1) 14:26: [place] tablet 35 Medical Branch diphenhydrA 2017-03 Yes 25mg Take 25 mg Univers MINE 1-16 by mouth ity of (BENADRYL) 14:26: every 6 [place] 25 mg 35 (six) Medical capsule hours as Branch needed for Allergies. OLANZapine 2017-03 Yes 10mg Take 10 mg U nivers (ZYPREXA) 1-16 by mouth ity of 20 mg 14:25: at [place] tablet 13 bedtime. Medical Branch OLANZapine 2017-03 Yes 10mg Take 10 mg U nivers (ZYPREXA) 1-16 by mouth ity of 20 mg 14:25: at [place] tablet 13 bedtime. Medical Branch oxybutynin 2017-03 Yes 5mg Take 5 mg Un lucy chloride 5 1-16 by mouth 2 ity of mg tablet 14:21: (two) [place] 36 times Medical daily. Branch gabapentin 2017-03 Yes 300mg Take 300 Un lucy (NEURONTIN) 1-16 mg by ity of 300 mg 14:21: mouth 3 [place] capsule 36 (three) Medical times Branch daily. atorvastati 2017-03 Yes 40mg Take 40 mg Univers n (LIPITOR) 1-16 by mouth ity of 40 mg 14:21: at [place] tablet 36 bedtime. Medical Branch Cholecalcif 2017-03 Yes 1000U Take 1,000 Univers stevan, 1-16 Units by ity of Vitamin D3, 14:21: mouth [place] (VITAMIN 36 daily. Medical D3) 1,000 Branch unit capsule risperiDONE 2017-03 Yes 2mg Take 2 mg U nivers (RISPERDAL) 1-16 by mouth ity of 2 mg tablet 14:21: daily. [facility] 36 [facility] pantoprazol 2017-03 Yes 40mg Take 40 mg Univers e 1-16 by mouth 2 ity of (PROTONIX) 14:21: (two) [place] 40 mg EC 36 times Medical tablet daily. Branch oxybutynin 2017-03 Yes 5mg Take 5 mg Un lucy chloride 5 1-16 by mouth 2 ity of mg tablet 14:21: (two) [place] 36 times Medical daily. Branch gabapentin 2017-03 Yes 300mg Take 300 Un lucy (NEURONTIN) 1-16 mg by ity of 300 mg 14:21: mouth 3 [place] capsule 36 (three) Medical times Branch daily. atorvastati 2017-03 Yes 40mg Take 40 mg Univers n (LIPITOR) 1-16 by mouth ity of 40 mg 14:21: at [place] tablet 36 bedtime. Medical Branch Cholecalcif 2017-03 Yes 1000U Take 1,000 Univers stevan, 1-16 Units by ity of Vitamin D3, 14:21: mouth [place] (VITAMIN 36 daily. Medical D3) 1,000 Branch unit capsule risperiDONE 2017-03 Yes 2mg Take 2 mg U nivers (RISPERDAL) 1-16 by mouth ity of 2 mg tablet 14:21: daily. [facility] 36 [facility] pantoprazol 2017-03 Yes 40mg Take 40 mg Univers e 1-16 by mouth 2 ity of (PROTONIX) 14:21: (two) [place] 40 mg EC 36 times Medical tablet daily. Branch oxybutynin 2020- No TAKE 1 [facility] (DITROPAN) 11-04 TABLET Colleg e 5 MG tablet 00:00: 00:00 EVERY of 00 :00 MORNING Medicin e rivastigmin 2020- No [facility] (EXELON) 7-30 04-14 College 1.5 MG 00:00: 00:00 of capsule 00 :00 Medicin e citalopram Yes TAKE 1 [facility] (CELEXA) 20 2-27 TABLET BY Col lege MG tablet 00:00: MOUTH of 00 EVERY DAY Medicin e citalopram Yes TAKE 1 [facility] (CELEXA) 20 2-27 TABLET BY Col lege MG tablet 00:00: MOUTH of 00 EVERY DAY Medicin e citalopram Yes TAKE 1 [facility] (CELEXA) 20 2-27 TABLET BY Col lege MG tablet 00:00: MOUTH of 00 EVERY DAY Medicin e metoprolol 2020- No 25mg Take 25 mg [facility] (LOPRESSOR) 04-29 by mouth Col lege 25 MG 00:00: 00:00 two times of tablet 00 :00 daily. Medicin e galantamine 2020- No [id number] TK 1 T PO [facility] (REMINYL) 4 08-06 BID College MG tablet 00:00: 00:00 of 00 :00 Medicin e nitrofurant 2020- No [id number] TK ONE C [facility] oin 08-06 PO [facility] [place]MACRODANTI 00:00: 00:00 of N) 50 MG 00 :00 Medicin capsule e olanzapine 2020- No [id number] TK 1/2 T [facility] (ZYPREXA) 07-24 PO Q College 20 MG 00:00: 00:00 of tablet 00 :00 Medicin e levothyroxi Yes [id number] TK 1 T PO [facility] 05-30 QD [place] (SYNTHROID) 00:00: of 112 MCG 00 Medicin tablet e levothyroxi Yes [id number] TK 1 T PO [facility] 05-30 QD [place] (SYNTHROID) 00:00: of 112 MCG 00 Medicin tablet e levothyroxi Yes [id number] TK 1 T PO [facility] 05-30 QD [place] (SYNTHROID) 00:00: of 112 MCG 00 Medicin tablet e KCL 20 mEq 2015-03 Yes Univers tablet 2-21 ity of 00:00: [address] KCL 20 mEq 2015-03 Yes Univers tablet 2-21 ity of 00:00: [address] KCL 20 mEq 2015-03 Yes Univers tablet 2-21 ity of 00:00: [address] KCL 20 mEq 2015-03 Yes Univers tablet 2-21 ity of 00:00: [address] galantamine 2015-03 Yes TK 1 T PO U nivers 4 mg tablet 2-20 BID ity of 00:00: [address] levothyroxi 2015-03 Yes TK 1 T PO U nivers ne 100 mcg 2-20 QD ity of tablet 00:00: [address] galantamine 2015-03 Yes TK 1 T PO U nivers 4 mg tablet 2-20 BID ity of 00:00: [address] levothyroxi 2015-03 Yes TK 1 T PO U nivers ne 100 mcg 2-20 QD ity of tablet 00:00: [address] galantamine 2015-03 Yes TK 1 T PO U nivers 4 mg tablet 2-20 BID ity of 00:: [address] levothyroxi 2015-03 Yes TK 1 T PO U nivers ne 100 mcg 2-20 QD ity of tablet 00:00: [address] galantamine 2015-03 Yes TK 1 T PO U nivers 4 mg tablet 2-20 BID ity of 00:: [address] levothyroxi 2015-03 Yes TK 1 T PO U nivers ne 100 mcg 2-20 QD ity of tablet 00:00: [address] donepezil 2015-0 2021- No [id number] 5mg Take 1 Tab [facility] (ARICEPT) 5 7-15 04-14 by mouth Col lege MG tablet 00:00: 00:00 daily of 00 :00 (with main Medicin meal). e + + Yes Sidney Taylor as C ommon Complete Complete [place] directed Spi rit Multi Multi - [facility] Metoprolol Metoprolol Yes Sidney Taylor TAKE 1 Common Tartrate Tartrate [facility] TABLET BY Sp rachell MOUTH - [facility] TWICE [facility] Carbidopa-L Carbidopa-L Yes Sidney Taylor TAKE 1 Common evodopa evodopa [facility] TABLET BY Spir it MOUTH - [facility] THREE St TIMES A [facility] Levothyroxi Levothyroxi Yes Sidney Taylor TAKE 1 Common ne Sodium ne Sodium Guardado TABLET BY Spirit MOUTH - [facility] EVERY DAY [facility] Citalopram Citalopram Yes Sidney Taylor TAKE 1 Common Hydrobromid Hydrobromid Guardado TABLET BY Spirit e e MOUTH - [facility] EVERY DAY [facility] Donepezil Donepezil Yes Sidney Taylor TAKE 1 C ommon HCl HCl Guardado TABLET BY Spirit MOUTH AT - [facility] BEDTIME [facility] Atorvastati Atorvastati Yes Sidney Taylor TAKE 1 Common n Calcium n Calcium Guardado TABLET BY Spirit MOU[facility] - [facility] EVERY DAY St AT NIGHT [facility] Oxybutynin Oxybutynin Yes Sidney Taylor TAKE 1 Common Chloride Chloride Guardado TABLET BY Sp rachell MOUTH - [facility] EVERY DAY [facility] Immunizations Ordered Immunization Filled Immunization Date Status Commen ts Source Name Name FLUZONE HIGH DOSE FLUZONE HIGH DOSE 2019-12-16 Completed Common [facility] OVER 65 OVER 65 00:00:00 - [facility] Vital Signs Vital Name Observation Time Observation Value Comments Source Systolic blood 2021-08-26 18:30:00 130 mm[Hg] [facility] Diastolic blood 2021-08-26 18:30:00 86 mm[Hg] [facility] Heart rate 2021-08-26 18:30:00 65 /min [facility] Respiratory rate 2021-08-26 18:30:00 18 /min [facility] Oxygen saturation in 2021-08-26 18:30:00 94 /min [facility] Arterial blood by [facility] Pulse oximetry Branch Body temperature 2021-08-26 15:56:00 36.39 [facility] Body weight 2021-08-26 15:56:00 94.802 kg [facility] BMI 2021-08-26 15:56:00 35.87 kg/m2 [facility] Systolic blood 2021-08-24 14:51:00 91 mm[Hg] [facility] pressure Medicine Diastolic blood 2021-08-24 14:51:00 67 mm[Hg] [facility] Medicine Heart rate 2021-08-24 14:51:00 59 /min [facility] Respiratory rate 2021-08-24 14:51:00 16 /min [facility] Body height 2021-08-24 14:51:00 162.6 cm [facility] ollege of [facility] Body weight 2021-08-24 14:51:00 96.163 kg [facility] ollege of Medicine BMI 2021-08-24 14:51:00 36.39 kg/m2 [facility] ollege of [facility] Oxygen saturation in 2021-08-24 14:51:00 98 /min [facility] of Arterial blood by Medicine Pulse oximetry Systolic blood 2021-06-05 16:39:00 138 mm[Hg] [facility] of pressure Medicine Diastolic blood 2021-06-05 16:39:00 69 mm[Hg] [facility] Medicine Heart rate 2021-06-05 16:39:00 64 /min [facility] ollege of Medicine Respiratory rate 2021-06-05 16:39:00 16 /min [facility] Body height 2021-06-05 16:39:00 162.6 cm [facility] ollege of [facility] Body weight 2021-06-05 16:39:00 90.719 kg [facility] ol[facility] of Medicine BMI 2021-06-05 16:39:00 34.33 kg[facility]m2 [facility] Oxygen saturation in 2021-06-05 16:39:00 98 /min [facility] of Arterial blood by Medicine Pulse oximetry Systolic blood 2020-07-12 16:53:00 144 mm[Hg] [facility] pressure Medicine Diastolic blood 2020-07-12 16:53:00 86 mm[Hg] [facility] of pressure Medicine Heart rate 2020-07-12 16:53:00 70 /min [facility] ollege of Medicine Respiratory rate 2020-07-12 16:53:00 15 /min [facility] Body height 2020-07-12 16:53:00 162.6 cm [facility] ol[facility] of Medicine Body weight 2020-07-12 16:53:00 96.163 kg [facility] ollege of Medicine BMI 2020-07-12 16:53:00 36.39 kg/m2 [facility] ollege of Medicine Oxygen saturation in 2020-07-12 16:53:00 96 /min [facility] College of Arterial blood by Medicine Pulse oximetry Procedures Procedure Date / Time Performing Clinician Source Performed CT HEAD WO CONTRAST 2021-08-26 17:06:03 Halina Kurtz [facility] XR CHEST 1 VW 2021-08-26 16:47:00 Halina Kurtz [facility] URINALYSIS 2021-08-26 16:34:00 Halina Kurtz [facility] TROPONIN I 2021-08-26 16:21:00 Halina Kurtz [facility] COMP. METABOLIC PANEL 2021-08-26 16:21:00 Halina Kurtz [facility] ([id number]) [facility] CBC WITH DIFF 2021-08-26 16:21:00 Halina Kurtz [facility] NOTICE OF PRIVACY PRACTICES 2021-08-26 15:51:02 Doctor Brittaney jimenez [facility] Name [facility] CONSENT/REFUSAL FOR 2021-08-26 15:50:43 Doctor Hamlin [facility] DIAGNOSIS AND TREATMENT [place] [facility] ELECTROCARDIOGRAM COMPLETE 2021-08-24 14:45:00 Betsy Gann [facility] AMB REF TO GERIATRICS 2021-08-24 11:05:00 [facility] ELECTROCARDIOGRAM COMPLETE 2021-08-24 09:45:00 B [facility] ELECTROCARDIOGRAM COMPLETE 2020-07-12 17:14:52 Betsy Gann [facility] AUTHORIZATION FOR RELEASE 2019-05-18 06:01:00 Doctor Hamlin [facility] Name [facility] Plan of Care Planned Activity Planned Date Details Comments Source Future Scheduled 2021-08-24 US ANKLE / BRACHIAL 1 Occurrences [facility] Test 11:05:00 INDICES EXTREMITY starting of Medicin e COMPLETE [code = 98674] 08/24/2021 until 08/24/2022 Future Scheduled 2021-08-24 ELECTROCARDIOGRAM [facility] Test 09:45:08 COMPLETE [code = 74179] of M edicine Future Scheduled 2021-08-24 COVID-19 Vaccine (#1) [facility] Test 09:44:38 [code = COVID-19 of Medicine Vaccine (#1)] Future Scheduled 2021-08-24 TETANUS SHOT (ADULT) [employer] Test 09:44:38 [code = TETANUS SHOT of Medi cine (ADULT)] Future Scheduled 2021-08-24 BMI FOLLOW UP PLAN [employer] Test 09:44:38 [code = BMI FOLLOW UP of Med icine PLAN] Future Scheduled 2021-08-24 ZOSTER VACCINE (1 of 2) [employer] Test 09:44:38 [code = ZOSTER VACCINE of Me dicine (1 of 2)] Future Scheduled 2021-08-24 FALL SCREEN [code = [employer] Test 09:44:38 FALL SCREEN] of Medicine Future Scheduled 2021-08-24 Screening for [facility] [employer] Test 09:44:38 osteoporosis of Medicine (procedure) [code = 420489547] Future Scheduled 2021-08-24 Pneumococcal 65+ (1 - [employer] Test 09:44:38 PCV) [code = of Medicine Pneumococcal 65+ (1 - PCV)] Future Scheduled 2021-08-24 MEDICARE AWV (Initial) [employer] Test 09:44:38 [code = MEDICARE AWV of ReCellular (Initial)] Future Scheduled 2021-08-24 FLU VACCINE > 6 MONTHS [employer] Test 09:44:38 [code = FLU VACCINE > 6 of M edicine MONTHS] Future Scheduled 2021-06-05 BRAIN NATRIURETIC Ordered: [facility] Test 11:04:14 PEPTIDE [code = 06/05/2021 of Medicine 32443-9] Future Scheduled 2021-06-05 COMPREHENSIVE METABOLIC Ordered: [facility] Test 11:04:14 PANEL [code = 16059-4] 06/05/2021 of Me dicine Future Scheduled 2021-06-05 MAGNESIUM [code = Ordered: [facility] Test 11:04:14 96685-9] 06/05/2021 of Medicine Future Scheduled 2021-06-05 LIPID PANEL [code = Ordered: [employer] Test 11:04:14 93994-4] 06/05/2021 of Medicine Future Scheduled 2021-06-05 CBC W/O DIFF W PLT Ordered: [employer] Test 11:04:14 [code = 6690-2] 06/05/2021 of Medicine Future Scheduled 2021-06-05 TSH [code = 31444-2] Ordered: [employer] Test 11:04:14 06/05/2021 of Medicine Future Scheduled 2021-06-05 XR CHEST PA AND LATERAL 1 Occurrences [facility] Test 11:04:14 [code = 84553-4] starting of Medicine 06/05/2021 until 06/05/2022 Future Scheduled 2021-06-05 COVID-19 Vaccine (1) [facility] Test 10:44:29 [code = COVID-19 of Medicine Vaccine (1)] Future Scheduled 2021-06-05 TETANUS SHOT (ADULT) [employer] Test 10:44:29 [code = TETANUS SHOT of Medi cine (ADULT)] Future Scheduled 2021-06-05 BMI FOLLOW UP PLAN [facility] [place] Test 10:44:29 [code = BMI FOLLOW UP of Med icine PLAN] Future Scheduled 2021-06-05 ZOSTER VACCINE (1 of 2) [facility] Test 10:44:29 [code = ZOSTER VACCINE of Me dicine (1 of 2)] Future Scheduled 2021-06-05 FALL SCREEN [code = [facility] [place] Test 10:44:29 FALL SCREEN] of Medicine Future Scheduled 2021-06-05 Screening for [facility] [employer] Test 10:44:29 osteoporosis of Medicine (procedure) [code = 494973183] Future Scheduled 2021-06-05 Pneumococcal 65+ (1 of B [facility] Test 10:44:29 1 - PPSV23) [code = of Medic ine Pneumococcal 65+ (1 of 1 - PPSV23)] Future Scheduled 2021-06-05 FLU VACCINE > 6 MONTHS B [facility] Test 10:44:29 [code = FLU VACCINE > 6 of M edicine MONTHS] Future Scheduled 2021-06-05 MEDICARE AWV (Initial) [facility] Test 10:44:29 [code = MEDICARE AWV of Medi cine (Initial)] Diagnostic Test 2020-07-12 MYOCARD PERFUSION - Expected: [employer] Pending 00:00:00 LEXISCAN [code = 73026] 07/12/2020, of M edicine Expires: 01/11/2022 Diagnostic Test 2020-07-12 ECHO, COMPLETE [code = Expected: [employer] Pending 00:00:00 28946] 07/12/2020, of Medicine Expires: 01/11/2021 Future Scheduled TETANUS SHOT (ADULT) [employer] Test [code = TETANUS SHOT of Medi cine (ADULT)] Future Scheduled COVID-19 Vaccine (1) [facility] Test [code = COVID-19 of Medicine Vaccine (1)] Future Scheduled ZOSTER VACCINE (1 of 2) [facility] Test [code = ZOSTER VACCINE of Me dicine (1 of 2)] Future Scheduled FALL SCREEN [code = [employer] [facility] FALL SCREEN] of Medicine Future Scheduled Screening for [facility] Test osteoporosis of Medicine (procedure) [code = 270606354] Future Scheduled PNEUMOVAX >=65 (PPSV23) [facility] Test [code = PNEUMOVAX >=65 of Me dicine (PPSV23)] Future Scheduled MEDICARE AWV (Initial) [employer] Test [code = MEDICARE AWV of Medi cine (Initial)] Future Scheduled FLU VACCINE > 6 MONTHS [employer] Test [code = FLU VACCINE > 6 of M edicine MONTHS] Encounters Start End Encounter Admission Attending Care Care Encounter Source Date/Time Date/Time Type Type Clinicians Facility Department ID 2021-10-30 Outpatient Monk, Na STLMLC STLMLC [id number] Common 14:30:01 [facility] 2021-04-25 Outpatient Monk, Na STLMLC STLMLC [id number] Common 16:34:00 [facility] 2021-04-25 Outpatient Monk, Na STLMLC STLMLC [id number] Common 14:34:04 [facility] 2021-04-25 Outpatient Monk, Na STLMLC STLMLC [id number] Common 14:28:02 [facility] 2021-04-25 Outpatient Monk, Na STLMLC STLMLC [id number] Common 14:10:33 [id number] [facility] 2021-04-25 Outpatient Monk, Na STLMLC STLMLC [id number] Common 14:08:10 [id number] [facility] 2021-04-25 Outpatient Monk, Na STLMLC STLMLC [id number] Common 13:52:09 [id number] [facility] 2021-04-25 Outpatient Monk, Na STLMLC STLMLC [id number] Common 12:53:21 [id number] [facility] 2021-04-25 Outpatient Aleshia Na STLMLC STLMLC [id number] Common 12:51:50 [id number] [facility] 2021-04-25 Outpatient Kenny, STLMLC STLMLC [id number] Common 12:38:53 Evelyn 43137 [facility] 2021-04-25 Outpatient Kenny, STLMLC STLMLC [id number] Common 12:38:01 Eevlyn 88008 [facility] 2021-04-25 Outpatient Kenny, STLMLC STLMLC [id number] Common 12:31:21 Evelyn 03557 [facility] 2021-04-25 Outpatient Kenny, STLMLC STLMLC [id number] Common 12:30:55 Evelyn 14060 [facility] 2021-04-25 Outpatient Kenny, STLMLC STLMLC [id number] Common 12:28:40 Evelyn 71786 [facility] 2021-04-25 Outpatient Kenny, STLMLC STLMLC [id number] Common 12:27:39 Evelyn 82481 [facility] 2021-04-25 Outpatient Kenny, STLMLC STLMLC [id number] Common 12:26:48 Evelyn [id number] [facility] 2021-04-25 Outpatient Kenny, STLMLC STLMLC [id number] Common 12:25:47 Evelyn [id number] [facility] 2021-04-25 Outpatient Kenny, STLMLC STLMLC [id number] Common 12:25:36 Evelyn 67987 [facility] 2021-04-25 Outpatient STLMLC STLMLC [id number] Common 12:24:11 [id number] [facility] 2021-04-25 Outpatient Sidney Guardado STLMLC STLMLC [id number] Common 12:16:20 [id number] [facility] 2021-04-25 Outpatient Sidney Guardado STLMLC STLMLC [id number] Common 12:03:40 [id number] [facility] 2021-04-25 Outpatient Sidney Guardado STLMLC STLMLC [id number] Common 11:46:48 Taylor 72291 [facility] 2021-11-01 2021-11-01 ambulatory STLMLC STLMLC [id number] Common 00:00:00 00:00:00 [facility] 2021-10-29 2021-10-29 ambulatory STLMLC STLMLC [id number] Common 00:00:00 00:00:00 [facility] 2021-10-25 2021-10-25 ambulatory STLMLC STLMLC [id number] Common 00:00:00 00:00:00 [facility] 2021-09-19 2021-09-19 ambulatory STLMLC STLMLC [id number] Common 00:00:00 00:00:00 [facility] 2021-09-18 2021-09-18 ambulatory STLMLC STLMLC [id number] Common 00:00:00 00:00:00 [facility] 2021-08-31 2021-08-31 Outpatient [facility] [id number] [facility] 09:02:54 10:42:34 Yousuf cantu of Medicin e 2021-08-26 2021-08-26 Emergency [facility] [id number] Univers 10:53:00 13:52:00 HALINA carey [facility] 2021-08-26 2021-08-26 Emergency [facility] [id number] [facility] 10:53:00 13:52:00 Halina HAWLEY [id number] ity of [place] 4.2.7.2.686 [facility] [id number] [address] 2021-08-26 2021-08-26 Orders Doctor RUCKER [id number] [facility] 00:00:00 00:00:00 Only UnassignedHOLLEY [id number] ity of [facility] 4.2.7.2.[id number] [facility] 009 Branch 2021-08-24 2021-08-24 Office FERNY GANN [id number] [facility] 09:35:23 11:37:52 Visit YOCHAI AMBULATOR 350.1.13.21 College Y 0.2.7.2.[id number] [facility] 375 e 2021-08-15 2021-08-15 ambulatory STLMLC STLMLC [id number] Common 00:00:00 00:00:00 [facility] 2021-08-13 2021-08-13 ambulatory STLMLC STLMLC [id number] Common 00:00:00 00:00:00 [facility] 2021-07-31 2021-07-31 ambulatory STLMLC STLMLC [id number] Common 00:00:00 00:00:00 [facility] 2021-07-31 2021-07-31 ambulatory STLMLC STLMLC [id number] Common 00:00:00 00:00:00 [facility] 2021-06-27 2021-06-27 ambulatory STLMLC STLMLC [id number] Common 00:00:00 00:00:00 [facility] 2021-06-05 2021-06-05 Outpatient REJI, [facility] [id number] [facility] 12:01:16 23:59:00 [facility] 2021-06-05 2021-06-05 Office REJI, BCM [id number] [facility] 10:31:09 13:24:42 Visit YOCHAI AMBULATOR 350.1.13.21 College Y 0.2.7.2.[id number] [facility] 375 e 2021-06-01 2021-06-01 ambulatory STLMLC STLMLC [id number] Common 00:00:00 00:00:00 [facility] 2021-05-29 2021-05-29 ambulatory STLMLC STLMLC [id number] Common 00:00:00 00:00:00 [facility] 2021-05-28 2021-05-28 ambulatory STLMLC STLMLC [id number] Common 00:00:00 00:00:00 [facility] 2021-05-28 2021-05-28 ambulatory STLMLC STLMLC [id number] Common 00:00:00 00:00:00 [facility] 2021-04-12 2021-04-12 ambulatory STLMLC STLMLC [id number] Common 00:00:00 00:00:00 [facility] 2021-04-12 2021-04-12 ambulatory STLMLC STLMLC [id number] Common 00:00:00 00:00:00 [facility] 2021-03-16 2021-03-16 ambulatory STLMLC STLMLC [id number] Common 00:00:00 00:00:00 [facility] 2021-03-01 2021-03-01 ambulatory STLMLC STLMLC [id number] Common 00:00:00 00:00:00 [facility] 2021-02-28 2021-02-28 ambulatory STLMLC STLMLC [id number] Common 00:00:00 00:00:00 [facility] 2021-01-31 2021-01-31 ambulatory STLMLC STLMLC [id number] Common 00:00:00 00:00:00 [facility] 2021-01-30 2021-01-30 ambulatory STLMLC STLMLC [id number] Common 00:00:00 00:00:00 [facility] 2021-01-29 2021-01-29 ambulatory STLMLC STLMLC [id number] Common 00:00:00 00:00:00 [facility] 2021-01-11 2021-01-11 Outpatient STLMLC STLMLC [id number] Common 00:00:00 00:00:00 [facility] 2021-01-02 2021-01-02 Outpatient STLMLC STLMLC [id number] Common 00:00:00 00:00:00 [facility] 2020-12-21 2020-12-21 Outpatient STLMLC STLMLC [id number] Common 00:00:00 00:00:00 [facility] 2020-11-06 2020-11-06 Outpatient STLMLC STLMLC [id number] Common 00:00:00 00:00:00 [facility] 2020-11-06 2020-11-06 Outpatient STLMLC STLMLC [id number] Common 00:00:00 00:00:00 [facility] 2020-10-30 2020-10-30 Outpatient STLMLC STLMLC [id number] Common 00:00:00 00:00:00 [facility] 2020-09-19 2020-09-19 Outpatient STLMLC STLMLC [id number] Common 00:00:00 00:00:00 [facility] 2020-08-16 2020-08-16 Outpatient STLMLC STLMLC [id number] Common 00:00:00 00:00:00 [facility] 2020-08-10 2020-08-10 Outpatient STLMLC STLMLC [id number] Common 00:00:00 00:00:00 [facility] 2020-08-04 2020-08-04 Outpatient STLMLC STLMLC [id number] Common 00:00:00 00:00:00 [facility] 2020-08-03 2020-08-03 Outpatient STLMLC STLMLC [id number] Common 00:00:00 00:00:00 [facility] 2020-08-02 2020-08-02 Outpatient STLMLC STLMLC [id number] Common 00:00:00 00:00:00 [facility] 2020-07-20 2020-07-20 Outpatient STLMLC STLMLC [id number] Common 00:00:00 00:00:00 [facility] 2020-07-17 2020-07-17 Outpatient STLMLC STLMLC [id number] Common 00:00:00 00:00:00 [facility] 2020-07-132020-07-13 Outpatient STLMLC STLMLC [id number] Common 00:00:00 00:00:00 [facility] 2020-07-12 2020-07-12 Office FERNY GANN [id number] [facility] 11:29:14 12:34:28 Visit BETSY AMBULATOR 350.1.13.21 College Y 0.2.7.2.686 [id number] Medi jose carlos 375 e 2020-06-30 2020-06-30 Outpatient STLMLC STLMLC [id number] Common 00:00:00 00:00:00 [facility] 2020-06-28 2020-06-28 Outpatient STLMLC STLMLC [id number] Common 00:00:00 00:00:00 [facility] 2020-06-18 2020-06-18 Outpatient STLMLC STLMLC [id number] Common 00:00:00 00:00:00 [facility] 2020-06-09 2020-06-09 Outpatient STLMLC STLMLC [id number] Common 00:00:00 00:00:00 [facility] 2020-06-09 2020-06-09 Outpatient STLMLC STLMLC [id number] Common 00:00:00 00:00:00 [facility] 2020-05-19 2020-05-19 Outpatient STLMLC STLMLC [id number] Common 00:00:00 00:00:00 [facility] 2020-05-04 2020-05-04 Outpatient STLMLC STLMLC [id number] Common 00:00:00 00:00:00 [facility] 2020-04-28 2020-04-28 Outpatient STLMLC STLMLC [id number] Common 00:00:00 00:00:00 [facility] 2020-04-28 2020-04-28 Outpatient STLMLC STLMLC [id number] Common 00:00:00 00:00:00 [facility] 2020-04-26 2020-04-26 Outpatient STLMLC STLMLC [id number] Common 00:00:00 00:00:00 [facility] 2020-04-25 2020-04-25 Outpatient STLMLC STLMLC [id number] Common 00:00:00 00:00:00 [facility] 2020-04-18 2020-04-18 Outpatient STLMLC STLMLC [id number] Common 00:00:00 00:00:00 [facility] 2020-04-10 2020-04-10 Outpatient STLMLC STLMLC [id number] Common 00:00:00 00:00:00 [facility] 2020-04-06 2020-04-06 Outpatient STLMLC STLMLC [id number] Common 00:00:00 00:00:00 [facility] 2020-02-11 2020-02-11 Outpatient STLMLC STLMLC [id number] Common 00:00:00 00:00:00 [facility] 2020-02-10 2020-02-10 Outpatient STLMLC STLMLC [id number] Common 00:00:00 00:00:00 [facility] 2020-02-04 2020-02-04 Outpatient STLMLC STLMLC [id number] Common 00:00:00 00:00:00 [facility] 2020-01-31 2020-01-31 Outpatient STLMLC STLMLC [id number] Common 00:00:00 00:00:00 [facility] 2020-01-27 2020-01-27 Outpatient STLMLC STLMLC [id number] Common 00:00:00 00:00:00 [facility] 2020-01-20 2020-01-20 Outpatient STLMLC STLMLC [id number] Common 00:00:00 00:00:00 [facility] 2020-01-17 2020-01-17 Outpatient STLMLC STLMLC [id number] Common 00:00:00 00:00:00 [facility] 2020-01-13 2020-01-13 Outpatient STLMLC STLMLC [id number] Common 00:00:00 00:00:00 [facility] 2020-01-10 2020-01-10 Outpatient STLMLC STLMLC [id number] Common 00:00:00 00:00:00 [facility] 2020-01-10 2020-01-10 Outpatient STLMLC STLMLC [id number] Common 00:00:00 00:00:00 [facility] 2020-01-06 2020-01-06 Outpatient STLMLC STLMLC [id number] Common 00:00:00 00:00:00 [facility] 2020-01-04 2020-01-04 Outpatient STLMLC STLMLC [id number] Common 00:00:00 00:00:00 [facility] 2019-12-31 2019-12-31 Outpatient STLMLC STLMLC [id number] Common 00:00:00 00:00:00 [facility] 2019-12-27 2019-12-27 Outpatient STLMLC STLMLC [id number] Common 00:00:00 00:00:00 [facility] 2019-12-27 2019-12-27 Outpatient STLMLC STLMLC [id number] Common 00:00:00 00:00:00 [facility] 2019-12-22 2019-12-22 Outpatient STLMLC STLMLC [id number] Common 00:00:00 00:00:00 [facility] 2019-12-22 2019-12-22 Outpatient STLMLC STLMLC [id number] Common 00:00:00 00:00:00 [facility] 2019-12-22 2019-12-22 Outpatient STLMLC STLMLC [id number] Common 00:00:00 00:00:00 [facility] 2019-12-16 2019-12-16 [facility] [id number] Common 09:00:00 09:00:[address] [facility] [address] [facility] 2019-05-18 2019-05-18 Orders Doctor RUCKER [id number] Univers 00:00:00 00:00:00 Only Unassigned, HOLLEY 350.1.13.10 ity of [place] [facility] 4.2.7.2.686 Franki as [id number] [facility] manny 009 [place] 2019-05-18 2019-05-18 Orders Doctor CHAIM [id number] 00:00:00 00:00:00 Only Unassigned, HOLLEY 350.1.13.10 [place] [facility] 4.2.7.2.686 [id number] [facility] 2019-05-16 2019-05-16 [facility] [id number] Univers 00:00:00 00:00:00 Kaleb Hickston 350.1.13.10 ity [facility] 4.2.7.2.[place] [id number] [place] dical [address] 2019-05-16 2019-05-16 [facility] [id number] 00:00:00 00:00:00 Kaleb Hawley 350.1.13.10 [place] 4.2.7.2.686 Professio [id number] nal [address] [place] [address] 2019-04-04 2019-04-04 Emergency [facility] ERT [id number] [facility] 15:59:44 18:51:00 LUKAS carey [facility] 2014-10-04 2014-10-04 Outpatient FERNY CABRERA [facility] [id number] [facility] 13:17:59 15:14:08 CHAIM cantu of Medicin e 2014-10-04 2014-10-04 Outpatient MEGHAN [facility] [id number] [facility] 08:11:06 13:52:44 SMILEY cantu of Medicin e Results Test Description Test Time Test Comments Results Result Comments Source TROPONIN I 2021-08-26 17:06:36 Test Item Value Reference Range Interpretation Comme nts TROPONIN I (test code = <0.012 See_Comment [Au tomated message] The [id number]) system which ge nerated this result tra nsmitted reference range : <=0.034 ng/mL. The refe rence range was not u sed to interpret this result as normal/abnormal . FABRICE (test code = FABRICE) Reference (Normal) Range (defined by the 99th percentile reference limit): <= 0.034 ng/mL Note: Cardiac troponin begins to rise 3-4 hours after the onset of ischemia. Repeat in 4-6 hours if the sample was drawn within 3-4 hours of the onset of the symptom and found normal. Diagnosis of myocardial injury is made with acute changes in cTn concentrations with at least one serial sample above the 99th percentile upper reference limit (URL), taken together with the patient's clinical presentation. Biotin has been reported to cause a negative bias, interpret results relative to patient's use of biotin. Lab Interpretation Normal (test code = 83727-2) [facility]. METABOLIC PANEL ([id number])2021-08-26 16:55:56 Test Item Value Reference Range Interpretation Comments NA (test code = 124 mmol/L 135-145 L 3495293117) K (test code = 4.5 mmol/L 3.5-5.0 2573840508) CL (test code = 88 mmol/L 98-108 L 4660255383) CO2 TOTAL (test code = 20 mmol/L 23-31 L 9412245388) AGAP (test code = 2-16 2249546694) BUN (test code = 22 mg/dL 7-23 4758229468) GLUCOSE (test code = 148 mg/dL 70-110 H 6823631327) CREATININE (test code = 1.56 mg/dL 0.50-1.04 H 7493131840) TOTAL BILI (test code = 0.7 mg/dL 0.1-1.8 9116052096) CALCIUM (test code = 10.3 mg/dL 8.6-10.6 7401739239) T PROTEIN (test code = 7.6 g/dL 6.3-8.2 4192392625) ALBUMIN (test code = 4.6 g/dL 3.5-5.0 1509884037) ALK PHOS (test code = 89 U/L 34-122 9185994917) ALTv (test code = 16 U/L 5-35 1742-6) AST(SGOT) (test code = 40 U/L 13-40 8527649413) eGFR (test code = mL/min/1.73m2 6118306973) FABRICE (test code = FABRICE) Association of Glomerular Filtration Rate (GFR) and Staging of Kidney Disease* + --+ --+ ------+| GFR (mL/min/1.73 m2) ?| With Kidney Damage ?| ?Without Kidney Damage+ --------+ --------+ +| ?>90 ?| ?Stage one ?| ? Normal ?+ ---+ ---+ -------+| ?60-89 ?| ?Stage two ?| ? Decreased GFR ? + --+ --+ ------+| ?30-59 ?| ?Stage three ?| ? Stage three ? + --+ --+ ------+| ?15-29 ?| ?Stage four ? | ? Stage four ?+ ---+ ---+ -------+| ?<15 (or dialysis) ? ?| ?Stage five ? | ? Stage five ?+ ---+ ---+ -------+ *Each stage assumes the associated GFR level has been in effect for at least three months. ?Stages 1 to 5, with or without kidney disease, indicate chronic kidney disease. Notes: Determination of stages one and two (with eGFR >59mL/min/1.73 m2) requires estimation of kidney damage for at least three months as defined by structural or functional abnormalities of the kidney, manifested by either:Pathological abnormalities or Markers of kidney damage (including abnormalities in the composition of the blood or urine or abnormalities in imaging tests). Lab Interpretation Abnormal (test code = 83213-3) [facility] WITH [id number] 16:44:17 Test Item Value Reference Range Interpretation Comments WBC (test code = See_Comment [Automated 6480-2) message] The sy stem which generated this result transmitted reference range : 4.30 - 11.10 10*3/?L. The reference range was not used to interpret this result as normal/abnormal . RBC (test code = See_Comment [Automated 301-8) message] The sy stem which generated this result transmitted reference range : 3.93 - 5.25 10*6/?L. The reference range was not used to interpret this result as normal/abnormal . HGB (test code = 13.5 g/dL 11.6-15.0 718-7) HCT (test code = 39.6 % 35.7-45.2 4544-3) MCV (test code = 89.8 fL 80.6-95.5 787-2) MCH (test code = 30.6 pg 25.9-32.8 785-6) MCHC (test code = 34.1 g/dL 31.6-35.1 786-4) RDW-SD (test code = 39.6 fL 39.0-49.9 11505-7) RDW-CV (test code = 12.0 % 12.0-15.5 788-0) PLT (test code = See_Comment [Automated 777-3) message] The sy stem which generated this result transmitted reference range : 166 - 358 10*3/ ?L. The reference r mary was not used to interpret this result as normal/abnormal . MPV (test code = 9.4 fL 9.5-12.9 L 18837-9) NRBC/100 WBC (test See_Comment [Automat ed code = [id number]) message] The system which generated this result transmitted reference range : 0.0 - 10.0 /100 WBCs. The refer ence range was not u sed to interpret th is result as normal/abnormal . NRBC x10^3 (test code <0.01 See_Comment [Auto mated = [id number]) message] The s ystem which generated this result transmitted reference range : 10*3/?L. The reference range was not used to interpret this result as normal/abnormal . GRAN MAT (NEUT) % 70.6 % (test code = 770-8) IMM GRAN % (test code 0.60 % = 4807370237) LYMPH % (test code = 19.8 % 736-9) MONO % (test code = 7.7 % 5905-5) EOS % (test code = 0.7 % 713-8) BASO % (test code = 0.6 % 706-2) GRAN MAT x10^3(ANC) 6.20 10*3/uL 1.88-7.09 (test code = 4104821938) IMM GRAN x10^3 (test 0.05 10*3/uL 0.00-0.06 code = 7594129307) LYMPH x10^3 (test code 1.74 10*3/uL 1.32-3.29 = 731-0) MONO x10^3 (test code 0.68 10*3/uL 0.33-0.92 = 742-7) EOS x10^3 (test code = 0.06 10*3/uL 0.03-0.39 711-2) BASO x10^3 (test code 0.05 10*3/uL 0.01-0.07 = 704-7) Lab Interpretation Abnormal (test code = 15405-7) [facility] Branch[facility], CHEST, 2 [id number] 13:55:00Reason for Exam:->SOB (shortness of breath) [facility] 1940 Sex: FFINAL REPORT Exam: RAD, CHEST, 2 VIEWSDate: 06/05/2021 1:52 PM Indication:SOB (shortness of breath)Comparison: 06/06/2014 FINDINGS: Lines/Tubes/Devices: Left atrial appendage closure device in place. Lungs/pleura:Lungs are well inflated. No focal consolidation or pulmonary edema. Trace left effusion. No pneumothorax. Heart/Mediastinum:Mild cardiomegaly. Bones/Soft Tissues: No acute osseous abnormality. Lower thoracic spine kyphosis. Degenerative osseous changes.. Upper abdomen: Unremarkable. IMPRESSION: Mild cardiomegaly, with trace left effusion. Signed: Sukhi Gee Verified Date/Time: 06/05/2021 13:55:50 Reading Location: [facility] Radiology Reading Room TROCARDIOGRAM [id number] 17:14:52Result approved by Betsy Gann MD on 07/12/20[facility]"
--- NOTE | 2021-11-08 15:38 | RAD REPORT ---
EXAM DESCRIPTION: RAD - Chest Single View - 11/08/2021 3:30 pm CLINICAL HISTORY: syncope Chest pain. COMPARISON: Chest Single View dated 07/11/2020; Chest Single View dated 07/10/2020; Chest Single View dated 01/24/2020 FINDINGS: Portable technique limits examination quality. Mild interstitial pulmonary edema seen. The heart is moderately enlarged in size. No displaced fractu res. IMPRESSION: Mild CHF.
[2021-11-08 16:17] LABS: Absolute Lymphocytes (CBC) 1.7 K/uL (0.7-4.9); Hematocrit 37.9 % (36.0-45.0); Lymphocytes % 20.2 % (15.3-44.8); MCV 90.4 fL (80-100); MPV 7.3 fL (7.6-11.3); RBC Red Blood Cell Count 4.19 M/uL (3.86-4.86)
[2021-11-08 16:34] LABS: Potassium 4.9 mmol/L (3.5-5.1); Troponin High Sensitivity 8.7 pg/mL (<58.9)
[2021-11-08] MEDS ORDERED: HYDROCOD 2.5mg-ACETAMIN 108mg/5mL Soln ONE (17:05)
--- NOTE | 2021-11-08 17:13 | RAD REPORT ---
EXAM DESCRIPTION: CT - CTHCSPWOC - 11/08/2021 4:58 pm CLINICAL HISTORY: Trauma, head and neck injury. syncope COMPARISON: No comparisons TECHNIQUE: Axial 5 mm thick images of the head were obtained. Axial 2 mm thick images of the cervical spine were obtained with sagittal and coronal reconstruction images generated and reviewed. All CT scans are performed using dose optimization technique as appropriate and may include automated exposure control or mA/KV adjustment according to patient size. FINDINGS: CT HEAD WITHOUT CONTRAST: No acute hemorrhage, hydrocephalus or extra-axial collection is identified.Gliosis is noted in the le ft temporal lobe. Old infarct is seen left simple lobe. Left temporal aneurysm clips noted. Small amount of fluid is seen left maxillary antrum. The paranasal sinuses and mastoids are otherwise clear.Left temporal craniotomy. CT CERVICAL SPINE WITHOUT CONTRAST: No fracture or subluxation.Moderate mid and lower cervical degenerative changes are present.No prever tebral soft tissues swelling is identified. IMPRESSION: No acute intracranial or cervical spine findings.
--- NOTE | 2021-11-08 17:15 | RAD REPORT ---
EXAM DESCRIPTION: CT - CTFB CLINICAL HISTORY: fall Trauma, facial pain and swelling. COMPARISON: No comparisons TECHNIQUE: Axial 2 mm thick images of the face were obtained with sagittal and coronal reconstructio n images. All CT scans are performed using dose optimization technique as appropriate and may include automated exposure control or mA/KV adjustment according to patient size. FINDINGS: Mild fracture involves the anterior wall of the left maxillary sinus. Fracture fragment is 11 mm in length and approximately 1-2 mm inwardly displaced. Moderate left facial hematoma/soft tiss ue swelling. Small amount hemorrhagic fluid is seen in the left maxillary antrum inferiorly.The oli ble is intact. The globes and orbital contents are grossly unremarkable.The remaining visualized paranasal sinuses a nd mastoids are clear. IMPRESSION: Mild fracture is seen involving the anterior wall of the left maxillary antrum as detail ed.
[2021-11-08 17:26] LABS: Urine Blood Negative (Negative); Urine Glucose Negative (Negative); Urine Protein Negative (Negative); Urine Specific Gravity 1.025 (1.005-1.030); Urine pH 5.5 (5.0-7.0)
[2021-11-08 17:52] LABS: Urine Bacteria <20 /HPF (<20); Urine RBC <5 /HPF (None Seen)
--- NOTE | 2021-11-08 18:34 | ER ---
Nurse's Notes [facility] Name: Kari Grace Age: 81 yrs Sex: Female : 1940 Arrival Date: 11/08/2021 Time: 15:02 Bed 18 Private MD: Diagnosis: Syncope Near;Fall on same level, unspecified;Unspecified injury of head, initial encounter;Maxillary fracture, unspecified Presentation: 11/08 15:09 Chief complaint: Left sided facial pain and swelling after mechanical fall from ap3 standing onto hardwood floor. Negative LOC. Unknown if on blood thinners. Swelling and mild bruising noted to left cheek. Coronavirus screen: At this time, the client does not indicate any symptoms associated with coronavirus-19. Ebola Screen: No symptoms or risks identified at this time. Initial Sepsis Screen: Does the patient meet any 2 criteria? No. Patient's initial sepsis screen is negative. Does the patient have a suspected source of infection? No. Patient's initial sepsis screen is negative. Risk Assessment: Do you want to hurt yourself or someone else? Patient reports no desire to harm self or others. Onset of symptoms was November 08, 2021. 15:09 Method Of Arrival: EMS: [facility] ap3 15:09 Acuity: JUNI 3 ap3 15:13 Care prior to arrival: None. Mechanism of Injury: Fall from standing position. Trauma ap3 event details: Injury occurred in the [facility], Injury occurred: in a public building. Injury occurred: November 08, 2021. Trauma Activation: Alert Physician: ED Physician; Name: ; Notified At: ; Arrived At: Physician: General Surgeon; Name: ; Notified At: ; Arrived At: Physician: Radiology; Name: ; Notified At: ; Arrived At: Physician: Respiratory; Name: ; Notified At: ; Arrived At: Physician: Lab; Name: ; Notified At: ; Arrived At: Historical: - Allergies: 15:08 PENICILLINS; ap3 - Home Meds: 15:08 atorvastatin 40 mg Oral tab 1 tab once daily [Active]; carbidopa-levodopa 25-100 mg ap3 Oral TbER 1 tab 3 times per day [Active]; citalopram 20 mg tab 1 tab once daily [Active]; donepezil 5 mg Oral TbDL 1 tab once daily [Active]; levothyroxine 112 mcg tab 1 tab once daily [Active]; metoprolol tartrate 25 mg Oral tab 1 tab 2 times per day [Active]; oxybutynin chloride 5 mg Oral tr24 1 tab once daily [Active]; - PMHx: 15:08 Atrial Fib; brain aneurysm; Brain bleed; CVA; 2018; Dementia; TIA; ap3 - Immunization history:: Adult Immunizations up to date. - Social history:: Smoking status: Patient denies any tobacco usage or history of. - Immunization history: Last tetanus immunization: unknown. Screenin:12 Abuse screen: Denies threats or abuse. Denies injuries from another. Nutritional ap3 screening: No deficits noted. Tuberculosis screening: No symptoms or risk factors identified. Fall Risk Total Martinez Fall Scale indicates Low Risk Score (25-44 pts). Fall prevention measures have been instituted. Frequent Obs/Assesments occuring Family Present and informed to notify staff if they need to leave bedside As available Patient and Family Educated on Fall Prevention Program and strategies. Primary Survey: 15:13 NO uncontrolled hemorrhage observed. A: The client is awake and alert. The airway is ap3 patent. Breathing/Chest: Spontaneous respiratory effort, equal unlabored respirations, breath sounds clear bilaterally, regular pattern, symmetrical chest rise and fall. Circulation: No external hemorrhage present. Regular and strong central pulse, skin warm/dry/normal color. Disability Client is alert. Exposure/Environment: Swelling and mild bruising noted to left cheek. 19:07 Reassessment Breathing: Spontaneous respiratory effort, equal unlabored respirations, ap3 breath sounds clear bilaterally, regular pattern with symmetrical chest rise and fall. Secondary Survey: 15:13 HEENT: Face Other left cheek bruising and swelling. Gastrointestinal: No deficits ap3 noted. : No deficits noted. No signs and/or symptoms were reported regarding the genitourinary system. Musculoskeletal: No deficits noted. No signs and/or symptoms reported regarding the musculoskeletal system. Assessment: 15:13 General: Appears in no apparent distress. Behavior is calm, appropriate for age. Pain: ap3 Pain currently is 10 out of 10 on a pain scale. Neuro: Level of Consciousness is awake, alert, obeys commands, Oriented to person, place, time, situation. EENT: No deficits noted. No signs and/or symptoms were reported regarding the EENT system. Cardiovascular: Patient's skin is warm and dry. Respiratory: Respiratory effort is even, unlabored, Respiratory pattern is regular, symmetrical. GI: No signs and/or symptoms were reported involving the gastrointestinal system. : No signs and/or symptoms were reported regarding the genitourinary system. Derm: Skin is pink, warm \T\ dry. Musculoskeletal: No signs and/or symptoms reported regarding the musculoskeletal system. Injury Description: Swelling and mild bruising noted to left cheek. 17:41 Reassessment: Patient and/or family updated on plan of care and expected duration. Pain ap3 level reassessed. Patient is alert, oriented x 3, equal unlabored respirations, skin warm/dry/pink. Vital Signs: 15:09 BP 124 / 60; Pulse 72; Resp 16; Temp 97.7(TE); Pulse Ox 96% on R/A; Weight 88.45 kg; hb Height 5 ft. 4 in. (162.56 cm); Pain 10/10; 17:40 BP 119 / 55; Pulse 82; Pulse Ox 93% on R/A; ap3 15:09 Body Mass Index 33.47 (88.45 kg, 162.56 cm) hb Moon Coma Score: 15:13 Eye Response: spontaneous(4). Verbal Response: oriented(5). Motor Response: obeys ap3 commands(6). Total: 15. Trauma Score (Adult): 15:13 Eye Response: spontaneous(1); Verbal Response: oriented(1); Motor Response: obeys ap3 commands(2); Systolic BP: > 89 mm Hg(4); Respiratory Rate: 10 to 29 per min(4); Moon Score: 15; Trauma Score: 12 ED Course: 15:02 Patient arrived in ED. eb 15:04 [facility]C [facility] snw 15:04 Sotero Nichols DO is Attending Physician. snw 15:08 Sue Perez, ALISSON is Primary Nurse. ap3 15:09 Arm band placed on. ap3 15:11 Triage completed. ap3 15:12 Patient has correct armband on for positive identification. Call light in reach. ap3 15:16 Patient maintains SpO2 saturation greater than 95% on room air. Thermoregulation: warm ap3 blanket given to patient. 15:32 XRAY Chest (1 view) In Process Unspecified. EDMS 15:51 Inserted saline lock: 20 gauge in right antecubital area, using aseptic technique. hb Blood collected. 17:00 CT Head C Spine In Process Unspecified. EDMS 17:01 CT Facial Bones W/O Con In Process Unspecified. EDMS 17:32 Straight cath inserted, using sterile technique, 14 Fr. Specimen obtained. Returned ap3 clear yellow urine. Patient tolerated well. 19:07 No provider procedures requiring assistance completed. IV discontinued, intact, ap3 bleeding controlled, No redness/swelling at site. Pressure dressing applied. Administered Medications: 17:32 Drug: Lortab (HYDROcodone-acetaminophen) Liquid 10 ml Route: PO; ap3 19:09 Follow up: Response: No adverse reaction; Pain is decreased ap3 Medication: 19:09 VIS not applicable for this client. ap3 Intake: 15:13 PO: 0ml; Total: 0ml. ap3 Outcome: 18:33 Discharge ordered by . snw 19:07 Discharged to home via wheelchair, with family. ap3 19:07 Condition: good 19:07 Discharge instructions given to patient, family, Instructed on discharge instructions, follow up and referral plans. medication usage, Demonstrated understanding of instructions, follow-up care, medications, Prescriptions given X 2. 19:08 Patient's length of stay in the Emergency Department was greater than 2 hours. ap3 19:09 Patient left the ED. ap3 Signatures: Dispatcher [employer] EDFL Amanda Cunningham FNP-C LANDSCAPE ARCHITECTURE PROFESSOR-Csnw Mary Ibarra RN RN Sue Perez RN RN ap3 Sima Valdez Corrections: (The following items were deleted from the chart) 16:15 15:09 BP 124 / 60; Pulse 72bpm; Resp 16bpm; Pulse Ox 96% RA; Temp 7.7F; 88.45 kg; hb Height 5 ft. 4 in.; BMI: 33.4; Pain 10/10; ap3 17:42 17:41 Reassessment: Patient and/or family updated on plan of care and expected ap3 duration. Pain level reassessed. Patient is alert, oriented x 3, equal unlabored respirations, skin warm/dry/pink. Patient states symptoms have not improved. ap3
--- NOTE | 2021-11-08 18:34 | EDPHYS ---
Physician Documentation [facility] Name: Kari Grace Age: 81 yrs Sex: Female : 1940 Arrival Date: 11/08/2021 Time: 15:02 Bed 18 Private MD: ED Physician Sotero Nichols HPI: 11/08 16:19 This 81 yrs old Female presents to ER via EMS with complaints of Fall Injury. snw 16:19 Details of fall: The patient fell from an upright position, while standing. Onset: The snw symptoms/episode began/occurred suddenly, just prior to arrival. Associated injuries: The patient sustained injury to the head, contusion, pain, swelling. Severity of symptoms: At their worst the symptoms were moderate, severe. The patient has experienced similar episodes in the past, multiple times. The patient has not recently seen a physician, pt passed out at Dr. Block's office. Historical: - Allergies: 15:08 PENICILLINS; ap3 - Home Meds: 15:08 atorvastatin 40 mg Oral tab 1 tab once daily [Active]; carbidopa-levodopa 25-100 mg ap3 Oral TbER 1 tab 3 times per day [Active]; citalopram 20 mg tab 1 tab once daily [Active]; donepezil 5 mg Oral TbDL 1 tab once daily [Active]; levothyroxine 112 mcg tab 1 tab once daily [Active]; metoprolol tartrate 25 mg Oral tab 1 tab 2 times per day [Active]; oxybutynin chloride 5 mg Oral tr24 1 tab once daily [Active]; - PMHx: 15:08 Atrial Fib; brain aneurysm; Brain bleed; CVA; 2018; Dementia; TIA; ap3 - Immunization history:: Adult Immunizations up to date. - Social history:: Smoking status: Patient denies any tobacco usage or history of. - Immunization history: Last tetanus immunization: unknown. ROS: 16:17 Eyes: Negative for injury, pain, redness, and discharge, ENT: Negative for injury, snw pain, and discharge, Neck: Negative for injury, pain, and swelling, Cardiovascular: Negative for chest pain, palpitations, and edema, Respiratory: Negative for shortness of breath, cough, wheezing, and pleuritic chest pain, Abdomen/GI: Negative for abdominal pain, nausea, vomiting, diarrhea, and constipation, Back: Negative for injury and pain. 16:17 MS/Extremity: Negative for injury and deformity, Skin: Negative for injury, rash, and discoloration. 16:17 Constitutional: Positive for malaise. 16:17 : Positive for urinary symptoms, just finished abx for UTI from Dr. Major. 16:17 Neuro: Positive for syncope, weakness, Daughter state pt has not been her norm x 2-3 months. Exam: 16:13 Constitutional: This is a well developed, well nourished patient who is awake, alert, snw and in no acute distress. 16:13 Eyes: Pupils equal round and reactive to light, extra-ocular motions intact. Lids and lashes normal. Conjunctiva and sclera are non-icteric and not injected. Cornea within normal limits. Periorbital areas with no swelling, redness, or edema. ENT: Nares patent. No nasal discharge, no septal abnormalities noted. Tympanic membranes are normal and external auditory canals are clear. Oropharynx with no redness, swelling, or masses, exudates, or evidence of obstruction, uvula midline. Mucous membranes moist. poor dentition Neck: Trachea midline, no thyromegaly or masses palpated, and no cervical lymphadenopathy. Supple, full range of motion without nuchal rigidity, or vertebral point tenderness. No Meningismus. Chest/axilla: Normal chest wall appearance and motion. Nontender with no deformity. No lesions are appreciated. 16:13 Respiratory: Lungs have equal breath sounds bilaterally, clear to auscultation and percussion. No rales, rhonchi or wheezes noted. No increased work of breathing, no retractions or nasal flaring. Abdomen/GI: Soft, non-tender, with normal bowel sounds. No distension or tympany. No guarding or rebound. No evidence of tenderness throughout. Back: No spinal tenderness. No costovertebral tenderness. Full range of motion. Skin: Warm, dry with normal turgor. Normal color with no rashes, no lesions, and no evidence of cellulitis. MS/ Extremity: Pulses equal, no cyanosis. Neurovascular intact. Full, normal range of motion. Psych: Awake, alert, with orientation to person, place and time. Behavior, mood, and affect are within normal limits. 16:13 Constitutional: The patient appears alert, anxious, obese, uncomfortable. 16:13 Head/face: Noted is swelling, that is moderate, of the left cheek. 16:13 Cardiovascular: Rate: bradycardic. 16:13 Cardiovascular: potential syncope pre arrival at Dr. Block's office. Vital Signs: 15:09 BP 124 / 60; Pulse 72; Resp 16; Temp 97.7(TE); Pulse Ox 96% on R/A; Weight 88.45 kg; hb Height 5 ft. 4 in. (162.56 cm); Pain 10/10; 17:40 BP 119 / 55; Pulse 82; Pulse Ox 93% on R/A; ap3 15:09 Body Mass Index 33.47 (88.45 kg, 162.56 cm) hb [place] Coma Score: 15:13 Eye Response: spontaneous(4). Verbal Response: oriented(5). Motor Response: obeys ap3 commands(6). Total: 15. Trauma Score (Adult): 15:13 Eye Response: spontaneous(1); Verbal Response: oriented(1); Motor Response: obeys ap3 commands(2); Systolic BP: > 89 mm Hg(4); Respiratory Rate: 10 to 29 per min(4); Moon Score: 15; Trauma Score: 12 MDM: 15:06 Patient medically screened. snw 18:14 Data reviewed: vital signs, nurses notes. Data interpreted: Pulse oximetry: on room air snw is 93 %. Interpretation: acceptable. Counseling: I had a detailed discussion with the patient and/or guardian regarding: the historical points, exam findings, and any diagnostic results supporting the discharge/admit diagnosis, lab results, radiology results. Response to treatment: the patient's symptoms have mildly improved after treatment, the patient's symptoms have markedly improved after treatment. 18:20 Physician consultation: Rishi Block MD was called at 18:15, was contacted at 18:15, snw regarding consult, patient's condition, Pt hemodynamically stable. As pt had syncopal event at Dr. Block's office, consulted for neuro clearance post update on imaging. Cleared from neurology standpoint. Appt next week. Pt is finishing Macrobid today and is to begin bactrim tomorrow for current UTI.. Special discussion: Based on the patient's history, exam and DX evaluation, there is no indication for emergent intervention or inpatient TX. It is understood by the patient/guardian that if the SXs persist or worsen they need to return immediately for re-evaluation. Based on the history and exam findings, there is no indication for further emergent testing or inpatient evaluation. I discussed with the patient/guardian the need to see the neurologist for further evaluation of the symptoms. I discussed with the patient/guardian the need to see the primary care provider for further evaluation of the symptoms. 11/08 15:24 Order name: Basic Metabolic Panel; Complete Time: 16:43 snw 11/08 15:24 Order name: CBC with Diff; Complete Time: 16:28 snw 11/08 15:24 Order name: Troponin HS; Complete Time: 16:43 snw 11/08 15:25 Order name: Urine Microscopic Only; Complete Time: 17:54 snw 11/08 15:24 Order name: CT Head C Spine; Complete Time: 17:18 snw 11/08 15:24 Order name: CT Facial Bones W/O Con; Complete Time: 17:18 snw 11/08 15:24 Order name: XRAY Chest (1 view); Complete Time: 15:48 snw 11/08 15:24 Order name: EKG; Complete Time: 15:25 snw 11/08 16:07 Order name: SARS-COV-2 RT PCR (Document "Date of Onset" if Symptomatic); Complete Time: eb 17:26 11/08 17:26 Order name: Urine Dipstick-Ancillary; Complete Time: 17:26 EDMS 11/08 15:24 Order name: Labs collected and sent; Complete Time: 17:02 snw 11/08 15:24 Order name: Cardiac monitoring; Complete Time: 17:57 snw 11/08 15:24 Order name: EKG - Nurse/Tech; Complete Time: 17:58 snw 11/08 15:24 Order name: IV Saline Lock; Complete Time: 16:00 snw 11/08 15:24 Order name: O2 Per Protocol; Complete Time: 16:00 snw 11/08 15:24 Order name: O2 Sat Monitoring; Complete Time: 16:00 snw 11/08 15:25 Order name: Cath; Complete Time: 17:32 snw EC:26 Rate is 69 beats/min. Rhythm is irregularly irregular. QRS [place] is Normal. T waves are snw Normal. No ST changes noted. Clinical impression: Atrial Fibrillation. Administered Medications: 17:32 Drug: Lortab (HYDROcodone-acetaminophen) Liquid 10 ml Route: PO; ap3 19:09 Follow up: Response: No adverse reaction; Pain is decreased ap3 Disposition: 21:16 Co-signature as Attending Physician, Sotero QUIROZ was immediately available on-site ms3 in the Emergency Department for consultation in the care of the patient. . Disposition Summary: 11/08/21 18:33 Discharge Ordered Location: Home snw Condition: Stable snw Diagnosis - Syncope Near snw - Fall on same level, unspecified snw - Unspecified injury of head, initial encounter snw - Maxillary fracture, unspecified snw Followup: snw - With: Emergency Department - When: As needed - Reason: Worsening of condition Discharge Instructions: - Discharge Summary Sheet snw - Head Injury, Adult snw - RICE Therapy for Routine Care of Injuries snw - Syncope snw - Facial or Scalp Contusion, [id number] snw - You've Been Prescribed an Antibiotic in the Hospital for an Infection - [facility] snw - Heart Failure Eating Plan snw Forms: - Medication Reconciliation Form snw - Thank You Letter snw - Antibiotic Education snw - Prescription Opioid Use snw Prescriptions: - Tylenol-Codeine #3 300 mg-30 mg Oral - take 1 tablet by ORAL route 3 times per day; 12 tablet; Refills: 0, Product snw Selection Permitted - Hydrochlorothiazide 25 mg Oral Tablet - take 1 tablet by ORAL route once daily .; 30 tablet; Refills: 0, Product snw Selection Permitted Signatures: Dispatcher [employer] EDMS Amanda Cunningham, PROPULSION GENERATOR REPAIRER-C PROPULSION GENERATOR REPAIRER-Csnw Sue Perez RN RN ap3 Sima Valdez Marcus, DO DO ms3 Corrections: (The following items were deleted from the chart) 16:14 15:25 SARS-COV-2 Antigen Rapid+I.LAB.BRZ ordered. EDOH EDMS 16:51 16:19 Labs - recollect needed ordered. jose ap3
[2021-11-08 21:26] VITALS: TEMP 97.7
[2021-11-08 21:38] VITALS: BP 119/55; O2SAT 93
--- NOTE | 2021-11-09 13:32 | EKG ---
Test Date: 2021-11-08 Test Time: 17:25:54 Senior Salesforce Developer: VITOR MEASUREMENT RESULTS: Intervals: Rate: 69 NC: QRSD: 96 QT: 442 QTc: 473 [place]: P: NC: QRS: -41 T: 221 INTERPRETIVE STATEMENTS: Atrial fibrillation Left axis deviation Cannot rule out Anterior infarct, age undetermined ST & T wave abnormality, consider inferolateral ischemia Abnormal ECG Compared to ECG 07/10/2020 14:25:13 Left-axis deviation now present Incomplete right bundle-branch block no longer present Myocardial infarct finding still present ST (T wave) deviation still present Possible ischemia still present Electronically Signed On 11-09-21 13:32:03 CDT by Ciro Camp
== END 2021-11-08 19:09 | disposition home or self-care (01) ==
LOC: ER 14:59
DX: S02.40DA Maxillary fracture, left side, initial encounter for closed fracture (principal); S09.90XA Unspecified injury of head, initial encounter; W18.30XA Fall on same level, unspecified, initial encounter; F03.90 Unspecified dementia, unspecified severity, without behavioral disturbance, psychotic disturbance, mood disturbance, and anxiety; I48.91 Unspecified atrial fibrillation; Z20.822 Contact with and (suspected) exposure to COVID-19; Z88.0 Allergy status to penicillin
CPT/HCPCS: 93005; 85025; 80048; 36415; 84484; 70450; 72125; 70486; 76377; 71045; 51702; 99284; U0003; 81003; 81015

== ENCOUNTER 2021-11-29 19:28 | Observation (INO) | payer OTHER ==
--- OUTSIDE RECORDS SUMMARY | 2021-11-29 19:33 | XMS REPORT | Continuity of Care Document ---
:1940 Author Organization [facility] t Address [address] [place] [address] Care Team Providers Name Role Phone RIVKAMARYReynaldo SANTA Primary Care Physician Unavailable Carlo Monk Attending Clinician Unavailable Evelyn Cox Attending Clinician Unavailable Sidney Guardado Attending Clinician Unavailable BETSY GANN Attending Clinician Unavailable Doctor Unassigned, [place] Attending Clinician Unavailable HALINA KURTZ Attending Clinician Unavailable Halina Kurtz DO Attending Clinician BETSY GANN Attending Clinician Unavailable Betsy Gann MD Attending Clinician Melecio AGUILA, Kaleb Webber Attending Clinician LUKAS HENRY Attending Clinician Unavailable CHAIM CABRERA Attending Clinician Unavailable SMILEY CHRISTIANSON Attending Clinician Unavailable HALINA KURTZ Admitting Clinician Unavailable LUKAS HENRY Admitting Clinician Unavailable Payers Payer Name Policy Type Policy Number Effective Date Expiration Date Deb beltran MEDICARE PLAN HMO [id number] - AETNA [facility] [id number] 2017 [facility] 00:00:00 HMO-POS-[facility] CHOICE [id number] PPO/MEDICARE PPO AETNA MEDICARE [id number] 2020 HMO POS 00:00:00 Problems Condition Condition Condition Status Onset Resolution Last Treating Co mments Source Name Details Category Date Date Treatment Clinician Date Other Other Disease Active [facility] chest pain chest pain 3-23 Co llege 00:00: of 00 Medicin e SOB SOB Disease Active 2016-03 [facility] (shortness (shortness 1-08 Co llege of breath) of breath) 00:00: of 00 Medicin e Anemia Anemia Disease Active 2016-03 [facility] 1-08 College 00:00: of 00 Medicin e Symptomati Symptomati Disease Active 2016-03 [facility] anemia c anemia 0-20 ity of 00:00: [place] [address] Medical Branch Atrial Atrial Disease Active [facility] fibrillati fibrillati 5-17 Co llege on on 00:00: of (HCCode) (HCCode) 00 Medici n e Dyslipidem Dyslipidem Disease Active [facility] ia ia 5-17 College 00:00: of 00 Medicin e Obesity Obesity Disease Active 2015-03 Univers (BMI (BMI 1-16 ity of 30-39.9) 30-39.9) 00:00: [place] [address] Medical Branch Hemorrhagi Hemorrhagi Disease Active 2015-03 [facility] stroke c stroke 1-16 ity of 00:00: [place] [address] Medical Branch 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' nce -16 it y of s disease s disease [place] 00 Medical behavioral behavioral Br anch disturbanc disturbanc e e Encephalop Encephalop Disease Active 2015-03 [facility]gan athy athy 1-16 ity of 00:00: [place] 00 Medical Branch Diarrhea Diarrhea Disease Active 2015-03 Unive rs in adult in adult -16 ity of patient patient 00:00: [place] [facility] History of History of Disease Active 2015-03 U [facility] surgery surgery 1-16 ity of for for 00:00: [place] 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 Branch Delirium Delirium Disease Active [facility] di 12-24 st 00:00: Hospita 00 l Mucus Mucus Disease Active [facility] plugging plugging 12-24 of bronchi of bronchi 00:00: Ho spita 00 l Acute Acute Disease Active [facility] respirator respirator 12-19 st y y 00:00: Hospita insufficie insufficie 00 l ncy, ncy, postoperat postoperat raj raj Atelectasi Atelectasi Disease Active M ethodi s s 12-19 st 00:00: Hospita 00 l Chronic Chronic Disease Active [facility] a-fib s/p a-fib s/p 12-18 Left Left 00:00: Hospita atrial atrial 00 l appendage appendage clipping clipping Obesity, Obesity, Disease Recurre Meth ru Class II, Class II, nce 829 st BMI BMI 00:00: Hospita 35-39.9 35-39.9 00 l Essential Essential Disease Recurre 2014-03 Un [facility]cy hypertensi hypertensi nce 1-12 it y of on on 00:00: [place] 00 Medical Branch Chronic Chronic Disease Recurre 2014-03 Univer s atrial atrial nce 1-12 ity of fibrillati fibrill[place] Syncope Syncope Disease Active 2014-03 Univers 1-11 ity of 00:00: [place] 00 Medical Branch Vascular Vascular Disease Active [facility] dementia dementia 15 Colleg e 00:00: of 00 Medicin e Paranoia Paranoia Disease Active [facility] (HCCode) (HCCode) 715 Colleg e 00:00: of 00 Medicin e Hypercalce Hypercalce Disease Active B joon marcelino [place] 15 College 00:00: of 00 Medicin e Hyperhomoc Hyperhomoc Disease Active [facility] ysteinemia ysteinemia 7-15 Co llege (HCCode) (HCCode) 00:00: of 00 Medicin e Atrial Atrial Disease Active [facility] fibrillati fibrillati 7-18 Kizzy kes on by 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 00 Ce nter diogram diogram h/o h/o Disease Recurre [facility] Intracrani Intracrani nce 03-31 st al al 00:00: Hospita Aneurysm Aneurysm 00 l s/p s/p clipping clipping TIA TIA Disease Recurre [facility] (transient (transient nce 03-31 st ischemic ischemic 00:00: Hospit a attack) attack) 00 l Hypothyroi Hypothyroi Disease Recurre [facility] dism dism nce st Hospita l HTN HTN Disease Recurre [facility] n[facility]osp[facility] l HLD HLD Disease Recurre Methodi nce [facility] Hospita l h/o ICH h/o ICH Disease Recurre Method i (intracere (intracere nce st bral bral Hospita hemorrhage hemorrhage l ) ) Cerebral Cerebral Disease Recurre Meth ru infarction infarction nce st Hospita l Allergies, Adverse Reactions, Alerts Allergy Allergy Status Severity Reaction(s) Onset Inactive Treating Comm ents Source Name Type Date Date Clinician Latex Propensi Active Other - See 2016-03 Uni vers ty to comments 04-19 ity of adverse 00:00: [place] reaction 00 Medical s Branch LATEX DRUG Active Other-Cmnt 2016-03 Univer s INGREDI 04-19 ity of 00:00: [place] 00 Medical Branch Penicill Propensi Active Swelling Whole [facility] ru ins ty to 8-[address] adverse 00:00: swelling Hospita reaction 00 l s to drug Penicill Propensi Active Swelling 2014-03 Hives, [...] Medical s Branch Penicill Propensi Active Swelling 2014-03 Hives, [facility] in G ty to 04-10 etc. College adverse 00:00: of reaction 00 Medicin s to e drug PENICILL Allergy Active Swelling [facility] INS 10-02 00:00: 00 Penicill Propensi Active Swelling [facility] adverse [facility]: Medical reaction [facility] Center s Penicill Propensi Active Swelling Whole [facility] ins ty to 10-02 body College adverse 00:00: swelling of reaction 00 Medicin s to e drug Social History Social Habit Start Date Stop Date Quantity Comments Source History of Current smoker University of tobacco use [facility] Exposure to 2021-08-16 2021-08-26 Not sure [facility] SARS-CoV-2 00:00:00 11:18:00 [facility] (event) [facility] Alcohol intake 2015-12-25 2015-12-25 Current Christian 00:00:00 00:00:00 non-drinker of [facility] alcohol (finding) Tobacco use and 2015-02-09 2015-02-09 Smokeless tobacco Un iversity of exposure 00:00:00 00:00:00 non-user [facility] Cigarette 2013-12-21 2013-12-21 [facility] of pack-years 00:00:00 00:00:00 Medicine Sex [birth year] At [birth year] [facility] 00:00:00 00:00:00 Hospital Smoking Status Start Date Stop Date Source [facility] smoked tobacco [facility] 2015-02-09 00:00:00 2015-02-09 00:00:00 [facility] Medications Ordered Filled Start Stop Current Ordering Indication Dosage Frequency Signature Comments Components Source Medication Medication Date Date Medication? Clinician (SIG) Name Name donepezil Yes 5mg Take 5 mg [facility] (ARICEPT) 11-28 by mouth Roseanna ege MG tablet 09:50: nightly. of 56 Medicin e olanzapine 2021- No 1{tbl} 1 Tablet. [facility] (ZYPREXA) 5 11-28 College MG tablet 09:50: 00:00 of 55 :00 Medicin e Mirabegron 2021- No 1{tbl} 1 Tablet. [facility] ER 11-28 College (MYRBETRIQ) 09:50: 00:00 of 25 MG TB24 37 :00 Medicin e diphenhydrA 2021- No 25mg Take 25 mg [facility] MINE 11-28 by mouth [facility] (BENADRYL) 09:50: 00:00 every 6 of 25 MG 31 :00 hours as Medicin tablet needed for e Sleep. acetaminoph 2021- No Every 6 [facility] en-codeine 11-28-31 hours. Colleg e (TYLENOL 09:50: 00:00 of #3) 300-30 25 :00 Medicin MG per e tablet atorvastati Yes [id number] TAKE 1 [facility] n (LIPITOR) 11-28 TABLET BY Col lege 40 MG 00:00: MOUTH of tablet 00 EVERYDAY Medicin AT BEDTIME e metoprolol Yes [id number] 100mg Take 1 Jak (LOPRESSOR) 11-28 Tablet by Col lege 100 MG 00:00: mouth two of tablet 00 times Medicin daily. e carbidopa-l Yes TAKE 1 [facility] evodopa 8-18 TABLET BY [facility] (SINEMET, 00:00: MOUTH of DHIVY) 00 TWICE A Medicin 25-100 MG DAY FOR 30 e per tablet DAYS chlorthalid 2021- No 25mg Take 1 [place] inga one 09-07 Tablet by [facility] (HYGROTEN) 00:00: 00:00 mouth of 25 MG 00 :00 daily. Medicin tablet e metoprolol 2021- No [id number] TAKE 1 Jak (LOPRESSOR) 6-11-28 TABLET BY Co llege 100 MG 00:00: 00:00 MOUTH of tablet 00 :00 TWICE A Medicin DAY e meclizine 2021- No 25mg 25 mg, Unive rs (TRAVEL-EAS 08-26- Oral, ity of E 18:15: 17:10 ONCE, 1 [place] (MECLIZINE) 00 :00 dose, On Medi manny ) tablet 25 [facility] Branch mg 08/26/21 at 1315, ARELI NaCl 0.9% 2021- No 1000mL at 999 Uni vers (NS) bolus 08-26- mL/hr, ity of infusion 17:30: 18:10 1,000 mL, Franki as 1,000 mL 00 :00 IV Medical Infusion, Branch ONCE, 1 dose, On 08/26/21 at 1230, ARELI hydrochloro 2021- No TAKE 1 [place] inga thiazide 08-24 CAPSULE BY Roseanna so (MICROZIDE) 11:14: 00:00 MOUTH of 12.5 MG 36 :00 EVERY DAY Medicin capsule e terbinafine 2021- No 1{tbl} 1 Tablet. [facility] (LAMISIL) 08-24 [facility] 250 MG 10:16: 00:00 of tablet 21 :00 Medicin e Prenat-Meth 2021- No as [facility] ylfol-Chol- 08-24 directed Col lege Fish Oil 10:15: 00:00 of ( + 54 :00 Medicin COMPLETE e MULTI) 0.267 & 373 MG THPK acetaminoph 0 Yes Every 6 [facility] inga en-codeine - hours. [facility] (TYLENOL 09:56: of #3) 300-30 08 Medicin MG per e tablet Mirabegron Yes 1{tbl} 1 Tablet. [facility] ER 08-24 [facility] (MYRBETRIQ) 09:56: of 25 MG TB24 08 Medicin e olanzapine Yes 1{tbl} 1 Tablet. [facility] (ZYPREXA) 5 08-24 [facility] MG tablet 09:56: of 08 Medicin e diphenhydrA 0 Yes 25mg Take 25 mg [facility] MINE - by mouth [facility] (BENADRYL) 09:52: every 6 of 25 MG 37 hours as Medicin tablet needed for e Sleep. donepezil 0 Yes 5mg Take 5 mg [facility] ing[facility] (ARICEPT) 5 08-24 by mouth [facility] ege MG tablet 09:52: nightly. of 37 Medicin e chlorthalid 0 Yes 25mg Take 1 [facility] one -27 Tablet by [facility] (HYGROTEN) 00:00: mouth of 25 MG 00 daily. Medicin tablet e sulfamethox 2021- No TAKE 1 [place] inga azole-trime -18 08-24 TABLET BY Km hankins thoprim 00:00: 00:00 MOUTH of (BACTRIM 00 :00 TWICE A Medicin DS, SEPT DAY FOR 10 e DS) 800-160 DAYS MG per tablet nystatin Yes 1 [facility] (MYCOSTATIN 5-03 APPLICATIO Co llege ) cream 00:00: N TO of 00 AFFECTED Medicin AREA/ SKIN e FOLDS EXTERNALLY TWICE A DAY 30 DAYS triamcinolo 2021-0 Yes 1 [facility] ne - APPLICATIO [facility] (KENALOG) 00:00: N TO of 0.1 % cream 00 AFFECTED Medi jose carlos AREA e NEEDED FOR ITCHING EXTERNALLY TWICE A DAY 30 DAYS nystatin 0 202- No 1 [facility] (MYCOSTATIN 5-11-28 APPLICATIO C ollege ) cream 00:00: 00:00 N TO of 00 :00 AFFECTED Medicin AREA/ SKIN e FOLDS EXTERNALLY TWICE A DAY 30 DAYS triamcinolo 2021-0 2021- No 1 [facility] rikki -11-28 APPLICATIO [place] (KENALOG) 00:00: 00:00 N TO of 0.1 % cream 00 :00 AFFECTED Medi jose carlos AREA e NEEDED FOR ITCHING EXTERNALLY TWICE A DAY 30 DAYS Alfuzosin 0 2021- No 1 tablet [facility] igna HCl 10 MG 3-30 - immediatel Col lege TB24 00:00: 04:59 y after of 00 :00 the same Medicin meal e Alfuzosin 2021-0 2021- No 1 tablet [place] ing[facility] HCl 10 MG 3-30 -27 immediatel Col lege TB24 00:00: 04:59 y after of 00 :00 the same Medicin meal e hydrochloro 2021- No 12.5mg Take 12.5 [facility] thiazide 3-08 03-08 mg by [facility] (HYDRODIURI 11:01: 00:00 mouth of L) 25 MG 55 :00 daily. Medicin tablet e Prenat-Meth Yes as [facility] ylfol-Chol- 3-08 directed Roseanna ege Fish Oil 10:41: of ( + 59 Medicin COMPLETE e MULTI) 0.267 & 373 MG THPK diphenhydrA 0 Yes 25mg Take 25 mg [facility] MINE 3-08 by mouth [facility] (BENADRYL) 10:41: every 6 of 25 MG 58 hours as Medicin tablet needed for e Sleep. donepezil 0 Yes 5mg Take 5 mg [facility] inga (ARICEPT) 5 3-08 by mouth Roseanna ege MG tablet 10:41: nightly. of 58 Medicin e atorvastati 2021-0 Yes [id number] TAKE 1 [facility] n (LIPITOR) 3-08 TABLET BY Col lege 40 MG 00:00: MOUTH of tablet 00 EVERYDAY Medicin AT BEDTIME e metoprolol 2021-0 Yes [id number] TAKE 1 [facility] (LOPRESSOR) 3-08 TABLET BY Col lege 100 MG 00:00: MOUTH of tablet 00 TWICE A Medicin DAY e chlorthalid 0 Yes 25mg Take 1 [facility] one 3-08 Tablet by [place] (HYGROTEN) 00:00: mouth of 25 MG 00 daily. Medicin tablet e atorvastati 0 Yes [id number] TAKE 1 [facility] n (LIPITOR) 3-08 TABLET BY Col lege 40 MG 00:00: MOUTH of tablet 00 EVERYDAY Medicin AT BEDTIME e metoprolol 2021-0 Yes [id number] TAKE 1 [facility] (LOPRESSOR) 3-08 TABLET BY Col lege 100 MG 00:00: MOUTH of tablet 00 TWICE A Medicin DAY e atorvastati 2021-0 2021- No [id number] TAKE 1 [facility] n (LIPITOR) 3-08 -31 TABLET BY Co llege 40 MG 00:00: 00:00 MOUTH of tablet 00 :00 EVERYDAY Medicin AT BEDTIME e chlorthalid 2021-0 2021- No 25mg Take 1 [facility] inga one -08 05-27 Tablet by [facility] (HYGROTEN) 00:00: 00:00 mouth of 25 MG 00 :00 daily. Medicin tablet e estradiol 0 Yes [facility] (ESTRACE) 3-04 [facility] 0.1 MG/GM 00:00: of vaginal 00 Medicin cream e estradiol 2021-0 2021- No [facility] (ESTRACE) 3-04 - [facility] 0.1 MG/GM 00:00: 00:00 of vaginal 00 :00 Medicin cream e nitrofurant 2021-0 Yes TAKE 1 [facility] oin, 2-28 CAPSULE BY [facility] macrocrysta 00:00: MOUTH of l-monohydra 00 EVERY 12 Medi jose carlos te, HOURS WITH e (MACROBID) FOOD FOR 7 100 MG DAYS capsule nitrofurant Yes TAKE 1 [facility] oin, 2-28 CAPSULE BY [facility] macrocrysta 00:00: MOUTH of l-monohydra 00 EVERY 12 Medi jose carlos te, HOURS WITH e (MACROBID) FOOD FOR 7 100 MG DAYS capsule predniSONE 2021- No 2 TABLETS [facility] (DELTASONE) 05-28 05-27 DAILYX 5 Col lege 10 MG 00:00: 00:00 DAYS THEN of tablet 00 :00 1 TABLET Medicin DAILY X 5 e DAYS WITH FOOD /MILK ORALLY ONCE A DAY metoprolol 2021- No [id number] TAKE 1 [facility] (LOPRESSOR) 05-22-08 TABLET BY Co llege 100 MG 00:00: 00:00 MOUTH of tablet 00 :00 TWICE A Medicin DAY e atorvastati 2021- No [id number] TAKE 1 [facility] n (LIPITOR) 218 03-08 TABLET BY Co llege 40 MG 00:00: 00:00 MOUTH of tablet 00 :00 EVERYDAY Medicin AT BEDTIME e atorvastati 2020- No 40mg Take 40 mg [facility] n (LIPITOR) 4-14 -14 by mouth Col lege 40 MG 17:24: 00:00 at of tablet 11 :00 bedtime. Medicin e Prenat-Meth Yes as [facility] ylfol-Chol- 4-14 directed Roseanna ege Fish Oil 16:56: of ( + 40 Medicin COMPLETE e MULTI) 0.267 & 373 MG THPK donepezil Yes 5mg Take 5 mg [facility] inga (ARICEPT) 5 4-14 by mouth Roseanna ege MG tablet 16:56: nightly. of 40 Medicin e diphenhydrA Yes 25mg Take 25 mg Jak MINE 4-14 by mouth [facility] (BENADRYL) 16:53: every 6 of 25 MG 43 hours as Medicin tablet needed for e Sleep. lisinopril 2020- No 10mg Take 10 mg Jak (PRINIVIL, 4-14 04-14 by mouth Roseanna ege ZESTRIL) 10 16:52: 00:00 daily. of MG tablet 48 :00 Medicin e gabapentin 2020- No 300mg Take 300 [facility] (NEURONTIN) 4-14 04-14 mg by Colleg e 300 MG 16:52: 00:00 mouth 3 of capsule 15 :00 times Medicin daily. e escitalopra 2020- No 20mg Take 20 mg [facility] m (LEXAPRO) 4-14 04-14 by mouth Col lege 20 MG 16:52: 00:00 daily. of tablet 06 :00 Medicin e Cholecalcif 2020- No Take by Kurt ylman stevan 4-14 04-14 mouth. [facility] (VITAMIN 16:51: 00:00 of D3) 1000 48 :00 Medicin UNITS TABS e amlodipine 2020- No 5mg Take 5 mg [facility] (NORVASC) 5 4-14 04-14 by mouth Col lege MG tablet 16:51: 00:00 daily. of 32 :00 Medicin e hydrochloro Yes 12.5mg Take 12.5 Jak thiazide 4-14 mg by [facility] (HYDRODIURI 16:47: mouth of L) 25 MG 54 daily. Medicin tablet e atorvastati Yes [id number] 40mg Take 1 [facility] n (LIPITOR) 4-14 Tablet by Col lege 40 MG 00:00: mouth at of tablet 00 bedtime. Medicin e metoprolol Yes [id number] 100mg Take 1 Jak (LOPRESSOR) 4-14 Tablet by Col lege 100 MG 00:00: mouth two of tablet 00 times Medicin daily. e metoprolol 2020- No 100mg Take 100 [facility] (LOPRESSOR) 4-13 04-14 mg by Colleg e 100 MG 00:00: 00:00 mouth two of tablet 00 :00 times Medicin daily. e Terbinafine Terbinafine 2019- No [facility] 1 tablet Common HCl HCl -17 03-08 [facility] 00:00: 00:00 - [facility] 00 :00 [facility] CARBIDOPA-L 2018- Yes TAKE 1 Univ ers EVODOPA 1-11 TABLET BY cherry of 25-100 mg 00:00: MOUTH FOUR Te [...] ity of 2 mg tablet 20:21[place] pantoprazol 2017-03 Yes 40mg Take 40 mg Univers e 1-16 by mouth 2 ity of (PROTONIX) 20:21: (two) [place] 40 mg EC 36 times Medical tablet daily. Branch oxybutynin 2017-03 Yes 5mg Take 5 mg Un lucy chloride 5 1-16 by mouth 2 ity of mg tablet 20:21: (two) [place] 36 times Medical daily. Branch [...] D3, 20:21: mouth [place] (VITAMIN 36 daily. [facility] D3) 1,000 Branch unit capsule risperiDONE 2017-03 Yes 2mg Take 2 mg U nivers (RISPERDAL) 1-16 by mouth ity of 2 mg tablet 20:21: [place]. [place] [facility] pantoprazol 2017-03 Yes 40mg Take 40 mg Univers e 1-16 by mouth 2 ity of (PROTONIX) 20:21: (two) [place] 40 mg EC 36 times Medical tablet daily. Branch oxybutynin 2017-03 Yes 5mg Take 5 mg Un lucy chloride 5 1-16 by mouth 2 ity of mg tablet 20:21: (two) [place] 36 times Medical daily. Branch escitalopra 2017-03 Yes 20mg Take 20 mg Univers m oxalate 1-16 by mouth ity of (LEXAPRO) 14:29: daily. [place] 20 mg 27 Medical tablet Branch escitalopra 2017-03 Yes 20mg Take 20 mg Univers m oxalate 1-16 by mouth ity of (LEXAPRO) 14:29: daily. [place] 20 mg 27 Medical tablet Branch escitalopra 2017-03 Yes 20mg Take 20 mg Univers m oxalate 1-16 by mouth ity of (LEXAPRO) 14:29: daily. [place] 20 mg 27 Medical tablet Branch metoprolol [...] 14:26: [place] tablet 35 Medical Branch diphenhydrA 2018-1 Yes 25mg Take 25 mg Univers MINE [...] ity of 2 mg tablet 14:21: [place]. [place] pantoprazol 2017-03 Yes 40mg Take 40 [...] ity of 2 mg tablet 14:21: [place]. [place] [facility] pantoprazol 2017-03 Yes 40mg Take 40 [...] mouth ity of 40 mg 14:21: at [place] tablet 36 bedtime. [facility] Branch Cholecalcif 2017-03 Yes 1000U Take 1,000 Univers stevan, 1-16 Units by ity of Vitamin D3, 14:21: mouth [place] (VITAMIN 36 daily. [facility] D3) 1,000 [place] unit capsule risperiDONE 2017-03 Yes 2mg Take 2 mg U nivers (RISPERDAL) 1-16 by mouth ity of 2 mg tablet 14:21: daily. [address] pantoprazol 2017-03 Yes 40mg Take 40 mg Univers e 1-16 by mouth 2 ity of (PROTONIX) 14:21: (two) [place] 40 mg EC 36 times Medical tablet daily. Branch oxybutynin 2020- No TAKE 1 [facility] (DITROPAN) 8 04-14 TABLET Colleg e 5 MG tablet 00:00: 00:00 EVERY of 00 :00 MORNING Medicin e rivastigmin 2020- No [facility] (EXELON) 10-27 04-14 College 1.5 MG 00:00: 00:00 of [...] metoprolol 2020- No 25mg Take 25 mg [facility] (LOPRESSOR) 04-29 by mouth Col lege 25 MG 00:00: 00:00 two times of tablet 00 :00 daily. Medicin e galantamine 2020- No [id number] TK 1 T PO [facility] (REMINYL) 4 08-06 BID College MG tablet 00:00: 00:00 of 00 :00 Medicin e nitrofurant 2020- No [id number] TK ONE C [facility] oin 08-06 PO [facility] [place]CRODANTI 00:00: 00:00 of N) 50 MG 00 :00 Medicin capsule e olanzapine 2020- No [id number] TK 1/2 T [facility] (ZYPREXA) 07-24 PO [facility] College 20 MG 00:00: 00:00 of tablet 00 :00 Medicin e levothyroxi Yes [id number] TK [address] [facility] - QD [place] (SYNTHROID) 00:00: of 112 MCG 00 Medicin tablet e levothyroxi Yes [id number] TK [address] [facility] 3- QD [facility] (SYNTHROID) 00:00: of 112 MCG 00 Medicin tablet e levothyroxi Yes [id number] TK [address] [facility] 3- QD [facility] (SYNTHROID) 00:00: of 112 MCG 00 Medicin tablet e levothyroxi Yes [id number] TK [address] [facility] 3- QD [facility] (SYNTHROID) 00:00: of 112 MCG 00 Medicin tablet e KCL 20 mEq 2015-03 Yes Univers tablet 2-21 ity of 00:00: [address] KCL 20 mEq 2015-03 Yes Univers tablet 2-21 ity of 00:00: [address] Branch KCL 20 mEq 2015-03 Yes Univers tablet 2-21 ity of 00:00: [place] [facility] KCL 20 mEq 2015-03 Yes Univers tablet 2-21 ity of 00:00: [place] [facility] KCL 20 mEq 2015-03 Yes Univers tablet 2-21 ity of 00:00: [place] [facility] galantamine 2015-03 Yes TK 1 T PO U nivers 4 mg tablet 2-20 BID ity of 00:00: [place] [facility] levothyroxi 2015-03 Yes TK 1 T PO U nivers ne 100 mcg 2-20 QD ity of tablet 00:00: [place] [facility] galantamine 2015-03 Yes TK 1 T PO U nivers 4 mg tablet 2-20 BID ity of 00:00: [address] levothyroxi 2015-03 Yes TK 1 T PO U nivers ne 100 mcg 2-20 QD ity of tablet 00:00: [place] [facility] galantamine 2015-03 Yes TK 1 T PO U nivers 4 mg tablet 2-20 BID ity of 00:: [place] [facility] levothyroxi 2015-03 Yes TK 1 T PO U nivers ne 100 mcg 2-20 QD ity of tablet 00:00: [place] [facility] galantamine 2015-03 Yes TK 1 T PO U nivers 4 mg tablet 2-20 BID ity of 00:: [place] [facility] levothyroxi 2015-03 Yes TK 1 T PO U nivers ne 100 mcg 2-20 QD ity of tablet 00:00: [address] galantamine 2015-03 Yes TK 1 T PO U nivers 4 mg tablet 2-20 BID ity of 00:: [address] levothyroxi 2015-03 Yes TK 1 T PO U nivers ne 100 mcg 2-20 QD ity of tablet 00:00: [address] docusate 2015-03 Yes 100mg Q.5D Take 100 Meth ru sodium 0-[address] (COLACE) 16:21: mouth 2 Hospit a 100 MG 14 (two) l capsule times a day. escitalopra 2015-03 Yes 10mg QD Take 10 mg [facility] m (LEXAPRO) 0-[address] 10 MG 16:21: daily. Hospita tablet 14 l gabapentin 2015-03 Yes 300mg Q.[id number] Take 300 [facility] (NEURONTIN) 0-03 [id number] mg by s t 300 MG 16:21: 3D mouth 3 Hospita capsule 14 (three) l times a day. meclizine 2015-03 Yes 25mg Q.[id number] Take 25 mg [facility] (ANTIVERT) 0-03 [id number] by mouth [address] 25 mg 16:21: 3D (three) Hospita tablet 14 times a l day as needed for dizziness. pantoprazol 2015-03 Yes 40mg Q.5D Take 40 mg Methodi e 0-[address] (PROTONIX) 16:21: (two) Hospit a 40 MG EC 14 times a l tablet day. risperiDONE 2015-03 Yes 2mg QD Take 2 mg M ethodi (RisperDAL) 0-[address] 1 MG tablet 16:21: nightly. Ho spita 14 l donepezil 2020- No [id number] 5mg Take 1 Tab [facility] (ARICEPT) 5 7-15 04-14 by mouth Col lege MG tablet 00:00: 00:00 daily of 00 :00 (with main Medicin meal). e diphenoxyla Yes 1{tbl} Take [address] te-atropine 7-18 tablet by Charley es (LOMOTIL) 14:49: mouth 4 Medic al 2.5-0.025 44 (four) Center mg per times tablet daily as needed for Diarrhea. pantoprazol Yes 40mg QD Take [address] [facility] 7-18 by mouth [facility] (PROTONIX) 14:49: daily. Medic al 40 MG 44 Center tablet digoxin Yes 125ug QD Take 125 [facility] (LANOXIN) 7-18 mcg by [facility] 0.125 MG 14:49: mouth Medical tablet 44 daily. Center primidone Yes 50mg QD Take [address] (MYSOLINE) 7-18 by mouth [facility] 50 MG 14:49: daily. Medical tablet 44 Center metoprolol Yes 50mg Q.5D Take [address] (LOPRESSOR) 7-18 by mouth 2 Kizzy kes 50 MG 14:49: (two) Medical tablet 44 times Center daily. gabapentin Yes 300mg Q.[id number] Take [address] (NEURONTIN) 7-18 [id number] mg by L ukes 300 MG 14:49: 3D mouth 3 Medical tablet 44 (three) Center times daily. atorvastati Yes 40mg QD Take [address] n (LIPITOR) 7-18 by mouth Luke s 40 MG 14:49: daily. Medical tablet 44 Center risperiDONE Yes .25mg QD Take 0.[address] [facility] (RISPERDAL) 7-18 mg by [facility] 0.25 MG 14:49: mouth Medical tablet 44 nightly. [place] rOPINIRole Yes .25mg Q.[id number] Take 0.[address] [address] (REQUIP) 7-18 [id number] mg by Luke s 0.25 MG 14:49: 3D mouth 3 Medical tablet 44 (three) Center times daily. levothyroxi Yes 100ug QD Take [address] ne 7-18 mcg by [facility] (SYNTHROID, 14:49: mouth Medic al LEVOTHROID) 44 daily. Center 100 MCG tablet escitalopra Yes 20mg QD Take [address] m (LEXAPRO) 7-18 by mouth Luke s 20 MG 14:49: daily. Medical tablet 44 Center naproxen Yes 220mg Take [address] [facility] [address] (ALEVE,ANAP 7-18 mg by [facility] ALBERTO,MIDOL) 14:49: mouth 2 Medi manny 220 MG 44 (two) Center tablet times daily with breakfast and dinner. acetaminoph Yes 500mg Take [address] en 7-18 mg by [facility] (TYLENOL) 14:49: mouth Medical 500 MG 44 every 6 Center tablet (six) hours as needed for Pain. hydrochloro Yes 25mg QD Take [address] thiazide 7-18 by mouth [facility] (HYDRODIURI 14:49: daily. Medi manny L) 25 MG 44 Center tablet sertraline Yes 50mg QD Take [address] (ZOLOFT) 50 7-18 by mouth Luke s MG tablet 14:49: daily. Medica l 44 Center fenofibrate Yes [facility] (TRICOR) 6-17 [facility] 145 MG 00:00: Medical tablet 00 [place] carvedil[address] [facility] (COREG) 6-17 [facility] 12.5 MG 00:00: Medical tablet 00 [place] amLODIPine Yes 5mg QD 5 mg [facility] (NORVASC) 5 6-11 daily. [facility] MG tablet 00:00: Medical 00 [place] omeprazole Yes [facility] (PRILOSEC) 5- [facility] 40 MG 00:00: Medical capsule 00 [place] + + Yes Sidney Taylor as C ommon Complete Complete Guardado directed Spi rit Multi Multi - [facility] Metoprolol Metoprolol Yes Sidney Taylor TAKE 1 Common Tartrate Tartrate Guardado TABLET BY Sp rachell MOUTH - CHI TWICE A DAY [facility] Carbidopa-L Carbidopa-L Yes Sidney Taylor TAKE 1 Common evodopa evodopa Guardado TABLET BY Spir it MOUTH - CHI THREE TIMES [facility] Levothyroxi Levothyroxi Yes Sidney Taylor TAKE 1 Common ne Sodium ne Sodium Guardado TABLET BY Spirit MOUTH - CHI EVERY DAY [facility] Citalopram Citalopram Yes Sidney Taylor TAKE 1 Common Hydrobromid Hydrobromid Guardado TABLET BY Spirit e e MOUTH - CHI EVERY DAY [facility] Donepezil Donepezil Yes Sidney Taylor TAKE 1 C ommon HCl HCl Guardado TABLET BY Spirit MOUTH AT - CHI BEDTIME [facility] Atorvastati Atorvastati Yes Sidney Taylor TAKE 1 Common n Calcium n Calcium Guardado TABLET BY Spirit MOUTH - [facility] EVERY DAY AT NIGHT [facility] Oxybutynin Oxybutynin Yes Sidney Taylor TAKE 1 Common Chloride Chloride Guardado TABLET BY Sp rachell MOUTH - CHI EVERY DAY [facility] Immunizations Ordered Immunization Filled Immunization Date Status Commen ts Source Name Name FLUZONE HIGH DOSE FLUZONE HIGH DOSE 2019-12-16 Completed [facility] OVER 65 OVER 65 00:00:00 - [facility] Vital Signs Vital Name Observation Time Observation Value Comments Source Systolic blood 2021-11-28 14:53:00 140 mm[Hg] [facility] pressure Medicine Diastolic blood 2021-11-28 14:53:00 78 mm[Hg] [facility] Medicine Heart rate 2021-11-28 14:51:00 60 /min [facility] Respiratory rate 2021-11-28 14:51:00 16 /min [facility] Body height 2021-11-28 14:51:00 162.6 cm [facility] C ollege of Medicine Body weight 2021-11-28 14:51:00 96.163 kg [facility] ollege of Medicine BMI 2021-11-28 14:51:00 36.39 kg/m2 [facility] ollege of Medicine Oxygen saturation in 2021-11-28 14:51:00 96 /min [facility] of Arterial blood by Medicine Pulse oximetry Systolic blood 2021-08-26 18:30:00 130 mm[Hg] Univer sity of pressure [facility] Diastolic blood 2021-08-26 18:30:00 86 mm[Hg] Unive rsity of pressure [facility] Heart rate 2021-08-26 18:30:00 65 /min [facility]i [facility] Respiratory rate 2021-08-26 18:30:00 18 /min Univ ersity of [facility] Oxygen saturation in 2021-08-26 18:30:00 94 /min University of Arterial blood by [facility] Pulse oximetry Branch Body temperature 2021-08-26 15:56:00 36.39 Misty Univ ersity of [facility] Body weight 2021-08-26 15:56:00 94.802 kg [facility] BMI 2021-08-26 15:56:00 35.87 kg/m2 [facility] ty [facility] Systolic blood 2021-08-24 14:51:00 91 mm[Hg] [facility] of pressure Medicine Diastolic blood 2021-08-24 14:51:00 67 mm[Hg] [facility] Medicine Heart rate 2021-08-24 14:51:00 59 /min [facility] ollege of Medicine Respiratory rate 2021-08-24 14:51:00 16 /min [facility] Body height 2021-08-24 14:51:00 162.6 cm [facility] ollege of Medicine Body weight 2021-08-24 14:51:00 96.163 kg [facility] ol[facility] of Medicine BMI 2021-08-24 14:51:00 36.39 kg/m2 [facility] ollege of [facility] Oxygen saturation in 2021-08-24 14:51:00 98 /min [facility] of Arterial blood by Medicine Pulse oximetry Systolic blood 2021-06-05 16:39:00 138 mm[Hg] [facility] Medicine Diastolic blood 2021-06-05 16:39:00 69 mm[Hg] [facility] Medicine Heart rate 2021-06-05 16:39:00 64 /min [facility] Respiratory rate 2021-06-05 16:39:00 16 /min [facility] Body height 2021-06-05 16:39:00 162.6 cm [facility] Body weight 2021-06-05 16:39:00 90.719 kg [facility] BMI 2021-06-05 16:39:00 34.33 kg/m2 [facility] Oxygen saturation in 2021-06-05 16:39:00 98 /min [facility] Arterial blood by Medicine Pulse oximetry Systolic blood 2020-07-12 16:53:00 144 mm[Hg] [facility] Diastolic blood 2020-07-12 16:53:00 86 mm[Hg] [facility] Heart rate 2020-07-12 16:53:00 70 /min [facility] Respiratory rate 2020-07-12 16:53:00 15 /min [facility] Body height 2020-07-12 16:53:00 162.6 cm [facility] Body weight 2020-07-12 16:53:00 96.163 kg [facility] BMI 2020-07-12 16:53:00 36.39 kg/m2 [facility] Oxygen saturation in 2020-07-12 16:53:00 96 /min [facility] Arterial blood by Medicine Pulse oximetry Procedures Procedure Date / Time Performing Clinician Source Performed BRAIN NATRIURETIC PEPTIDE 2021-11-28 10:19:36 [facility] CBC W/O DIFF W PLT 2021-11-28 10:19:36 [facility] LIPID PANEL 2021-11-28 10:19:36 [facility] COMPREHENSIVE METABOLIC 2021-11-28 10:19:36 [facility] EXTERNAL PROVIDER RECORDS 2021-11-09 05:01:00 Doctor Unassigned, [facility] Name [facility] CT HEAD WO CONTRAST 2021-08-26 17:06:03 Halina Kurtz [facility] XR CHEST 1 VW 2021-08-26 16:47:00 Halina Kurtz [facility] URINALYSIS 2021-08-26 16:34:00 Halina Kurtz [facility] TROPONIN I 2021-08-26 16:21:00 Halina Kurtz [facility] COMP. METABOLIC PANEL 2021-08-26 16:21:00 Halina Kurtz [facility] ([id number]) [facility] CBC WITH DIFF 2021-08-26 16:21:00 Halina Kurtz [facility] NOTICE OF PRIVACY PRACTICES 2021-08-26 15:51:02 Doctor Brittaney jimenez [facility] Name [facility] CONSENT/REFUSAL FOR 2021-08-26 15:50:43 Doctor Hamlin [facility] DIAGNOSIS AND TREATMENT [facility] ELECTROCARDIOGRAM COMPLETE 2021-08-24 14:45:[address] [facility] AMB REF TO GERIATRICS 2021-08-24 11:05:00 [facility] Medicine ELECTROCARDIOGRAM COMPLETE 2021-08-24 09:45:00 B [facility] XR CHEST 2 VIEWS 2021-06-05 12:39:00 Betsy Gann [facility] ELECTROCARDIOGRAM COMPLETE 2020-07-12 17:14:[address] [facility] AUTHORIZATION FOR RELEASE 2019-05-18 06:01:00 Doctor Hamlin [facility] Plan of Care Planned Activity Planned Date Details Comments Source Future Scheduled 2021-11-29 INFLUENZA VACCINE (#1) [facility] 00:00:00 [code = INFLUENZA Medical Ce nter VACCINE (#1)] Future Scheduled 2021-11-28 BRAIN NATRIURETIC Ordered: [facility] Test 10:19:36 PEPTIDE [code = 11/28/2021 Medicine 08465-4] Future Scheduled 2021-11-28 CBC W/O DIFF W PLT Ordered: [facility] Test 10:19:36 [code = 6690-2] 11/28/2021 of Medicine Future Scheduled 2021-11-28 LIPID PANEL [code = Ordered: [employer] Test 10:19:36 54208-3] 11/28/2021 of Medicine Future Scheduled 2021-11-28 COMPREHENSIVE METABOLIC Ordered: [facility] Test 10:19:36 PANEL [code = 42661-4] 11/28/2021 of Me dicine Future Scheduled 2021-11-28 COVID-19 Vaccine (#1) [employer] Test 09:47:47 [code = COVID-19 of Medicine Vaccine (#1)] Future Scheduled 2021-11-28 TETANUS SHOT (ADULT) [employer] [facility] Test 09:47:47 [code = TETANUS SHOT of Medi cine (ADULT)] Future Scheduled 2021-11-28 BMI FOLLOW UP PLAN [facility] Test 09:47:47 [code = BMI FOLLOW UP of Med icine PLAN] Future Scheduled 2021-11-28 ZOSTER VACCINE (1 of 2) [facility] Test 09:47:47 [code = ZOSTER VACCINE of Me dicine (1 of 2)] Future Scheduled 2021-11-28 FALL SCREEN [code = [employer] Test 09:47:47 FALL SCREEN] of Medicine Future Scheduled 2021-11-28 Screening for [facility]ge Test 09:47:47 osteoporosis of Medicine (procedure) [code = 173871179] Future Scheduled 2021-11-28 Pneumococcal 65+ (1 - [employer] Test 09:47:47 PCV) [code = of Medicine Pneumococcal 65+ (1 - PCV)] Future Scheduled 2021-11-28 MEDICARE AWV (Initial) [employer] Test 09:47:47 [code = MEDICARE AWV of Medi cine (Initial)] Future Scheduled 2021-11-28 FLU VACCINE > 6 MONTHS [employer] Test 09:47:47 [code = FLU VACCINE > 6 of M edicine MONTHS] Future Scheduled 2021-11-27 HEPATITIS B VACCINES (1 [facility] Test 23:30:16 of 3 - 3-dose series) Hospit al [code = HEPATITIS B VACCINES (1 of 3 - 3-dose series)] Future Scheduled 2021-11-27 COVID-19 VACCINE (#1) [facility] Test 23:30:16 [code = COVID-19 Hospital VACCINE (#1)] Future Scheduled 2021-11-27 SHINGLES VACCINES (1 of [facility] Test 23:30:16 2) [code = SHINGLES Hospital VACCINES (1 of 2)] Future Scheduled 2021-11-27 65+ PNEUMOCOCCAL Methodi [facility] Test 23:30:16 VACCINE (1 - PCV) [code Hosp ital = 65+ PNEUMOCOCCAL VACCINE (1 - PCV)] Future Scheduled 2021-11-27 INFLUENZA VACCINE [code [facility] Test 23:30:16 = INFLUENZA VACCINE] Hospita l Future Scheduled 2021-08-24 US ANKLE / BRACHIAL 1 Occurrences [employer] [facility] Test 11:05:00 INDICES EXTREMITY starting of Medicin e COMPLETE [code = 71094] 08/24/2021 until 08/24/2022 Future Scheduled 2021-08-24 ELECTROCARDIOGRAM [facility] Test 09:45:08 COMPLETE [code = 13226] of M edicine Future Scheduled 2021-08-24 COVID-19 Vaccine (#1) [employer] Test 09:44:38 [code = COVID-19 of Medicine Vaccine (#1)] Future Scheduled 2021-08-24 TETANUS SHOT (ADULT) [facility] Test 09:44:38 [code = TETANUS SHOT of Medi cine (ADULT)] Future Scheduled 2021-08-24 BMI FOLLOW UP PLAN [facility] Test 09:44:38 [code = BMI FOLLOW UP of Med icine PLAN] Future Scheduled 2021-08-24 ZOSTER VACCINE (1 of 2) [facility] Test 09:44:38 [code = ZOSTER VACCINE of Ms dicine (1 of 2)] Future Scheduled 2021-08-24 FALL SCREEN [code = [facility] Test 09:44:38 FALL SCREEN] of Medicine Future Scheduled 2021-08-24 Screening for [facility] Col [facility]ge Test 09:44:38 osteoporosis of Medicine (procedure) [code = 306858672] Future Scheduled 2021-08-24 Pneumococcal 65+ (1 - [employer] Test 09:44:38 PCV) [code = of Medicine Pneumococcal 65+ (1 - PCV)] Future Scheduled 2021-08-24 MEDICARE AWV (Initial) [employer] Test 09:44:38 [code = MEDICARE AWV of Medi cine (Initial)] Future Scheduled 2021-08-24 FLU VACCINE > 6 MONTHS [employer] Test 09:44:38 [code = FLU VACCINE > 6 of M edicine MONTHS] Future Scheduled 2021-06-05 BRAIN NATRIURETIC Ordered: [facility] Test 11:04:14 PEPTIDE [code = 06/05/2021 of Medicine 51007-5] Future Scheduled 2021-06-05 COMPREHENSIVE METABOLIC Ordered: [facility] Test 11:04:14 PANEL [code = 73703-1] 06/05/2021 of Me dicine Future Scheduled 2021-06-05 MAGNESIUM [code = Ordered: [facility] Test 11:04:14 08613-9] 06/05/2021 of Medicine Future Scheduled 2021-06-05 LIPID PANEL [code = Ordered: [facility] Test 11:04:14 89794-3] 06/05/2021 of Medicine Future Scheduled 2021-06-05 CBC W/O DIFF W PLT Ordered: [facility] Test 11:04:14 [code = 6690-2] 06/05/2021 of Medicine Future Scheduled 2021-06-05 TSH [code = 78924-4] Ordered: [facility] Test 11:04:14 06/05/2021 of Medicine Future Scheduled 2021-06-05 XR CHEST PA AND LATERAL 1 Occurrences [facility] Test 11:04:14 [code = 62989-6] starting of Medicine 06/05/2021 until 06/05/2022 Future Scheduled 2021-06-05 COVID-19 Vaccine (1) [facility] Test 10:44:29 [code = COVID-19 of Medicine Vaccine (1)] Future Scheduled 2021-06-05 TETANUS SHOT (ADULT) [facility] Test 10:44:29 [code = TETANUS SHOT of Medi cine (ADULT)] Future Scheduled 2021-06-05 BMI FOLLOW UP PLAN [facility] [place] Test 10:44:29 [code = BMI FOLLOW UP of Med icine PLAN] Future Scheduled 2021-06-05 ZOSTER VACCINE (1 of 2) [facility] Test 10:44:29 [code = ZOSTER VACCINE of Me dicine (1 of 2)] Future Scheduled 2021-06-05 FALL SCREEN [code = [employer] Test 10:44:29 FALL SCREEN] of Medicine Future Scheduled 2021-06-05 Screening for [facility] Test 10:44:29 osteoporosis of Medicine (procedure) [code = 512940133] Future Scheduled 2021-06-05 Pneumococcal 65+ (1 of [employer] Test 10:44:29 1 - PPSV23) [code = of Medic ine Pneumococcal 65+ (1 of 1 - PPSV23)] Future Scheduled 2021-06-05 FLU VACCINE > 6 MONTHS [employer] Test 10:44:29 [code = FLU VACCINE > 6 of M edicine MONTHS] Future Scheduled 2021-06-05 MEDICARE AWV (Initial) [employer] Test 10:44:29 [code = MEDICARE AWV of Medi cine (Initial)] Future Scheduled 2021-03-[address] [facility] Test 00:00:00 (12+) [code = Medical Center DEPRESSION SCREENING (12+)] Future Scheduled 2021-03-31 F[address]S RISK SCREENING [facility] Test 00:00:00 [code = FALLS RISK Medical C enter SCREENING] Diagnostic Test 2020-07-12 MYOCARD PERFUSION - Expected: [facility] r [facility] Pending 00:00:00 LEXISCAN [code = 62426] 07/12/2020, of M edicine Expires: 01/11/2022 Diagnostic Test 2020-07-12 ECHO, COMPLETE [code = Expected: [employer] Pending 00:00:00 33962] 07/12/2020, of Medicine Expires: 01/11/2021 Future Scheduled 2009-04-[address] [facility] Test 00:00:00 WELLNESS (YEAR 2 or Medical Center FIRST YEAR if no IPPE) [code = MEDICARE ANNUAL WELLNESS (YEAR 2 or FIRST YEAR if no IPPE)] Future Scheduled 2004 PNEUMOCOCCAL 65+ YRS ([address] [facility] Test 00:00:00 - PCV) [code = Medical Cente r PNEUMOCOCCAL 65+ YRS (1 - PCV)] Future Scheduled 1989 SHINGLES VACCINES ([address] [facility] Test 00:00:00 2) [code = SHINGLES Medical Center VACCINES (1 of 2)] Future Scheduled 1958 DTAP/TDAP/TD [facility]ACCINES [facility] Test 00:00:00 (1 - Tdap) [code = Medical C enter DTAP/TDAP/TD VACCINES (1 - Tdap)] Future Scheduled 1939 COVID-19 VACCINE (#1) [facility] Test 00:00:00 [code = COVID-[address] VACCINE (#1)] Future Scheduled 1940 DXA SCAN [code = DXA [facility] Test 00:00:00 SCAN] [facility] Future Scheduled TETANUS SHOT (ADULT) [employer] Test [code = TETANUS SHOT of Medi cine (ADULT)] Future Scheduled COVID-19 Vaccine (1) [facility] Test [code = COVID-19 of Medicine Vaccine (1)] Future Scheduled ZOSTER VACCINE (1 of 2) [facility] Test [code = ZOSTER VACCINE of Me dicine (1 of 2)] Future Scheduled FALL SCREEN [code = [facility] FALL SCREEN] of Medicine Future Scheduled Screening for [facility] Col lege Test osteoporosis of Medicine (procedure) [code = 957967781] Future Scheduled PNEUMOVAX >=65 (PPSV23) [facility] Test [code = PNEUMOVAX >=65 of Me dicine (PPSV23)] Future Scheduled MEDICARE AWV (Initial) [employer] Test [code = MEDICARE AWV of [facility] cine (Initial)] Future Scheduled FLU VACCINE > 6 MONTHS [employer] Test [code = FLU VACCINE > 6 of M edicine MONTHS] Encounters Start End Encounter Admission Attending Care Care Encounter Source Date/Time Date/Time Type Type Clinicians Facility Department ID 2021-10-30 Outpatient Monk, Na [facility] [id number] Common 14:30:01 [facility] 2021-04-25 Outpatient Monk, Na [facility] STLC [id number] 2 Common 16:34:00 [facility] 2021-04-25 Outpatient Monk, Na [facility] STLC [id number] 2 Common 14:34:04 [facility] 2021-04-25 Outpatient Monk, Na [facility] STLC [id number] 2 Common 14:28:02 [id number] [facility] 2021-04-25 Outpatient Monk, Na [facility] ST[facility] [id number] Common 14:10:33 [id number] [facility] 2021-04-25 Outpatient Monk, Na STLMLC STLMLC [id number] Common 14:08:10 [id number] [facility] 2021-04-25 Outpatient Monk, Na STLMLC STLMLC [id number] 2 Common 13:52:09 25705 [facility] 2021-04-25 Outpatient Monk, Na STLMLC STLMLC [id number] Common 12:53:21 82397 [facility] 2021-04-25 Outpatient Monk, Na STLMLC STLMLC [id number] Common 12:51:50 [id number] [facility] 2021-04-25 Outpatient Kenny, STLMLC STLMLC [id number] Common 12:38:53 Evelyn 24925 [facility] 2021-04-25 Outpatient Kenny, STLMLC STLMLC [id number] Common 12:38:01 Evelyn 96413 [facility] 2021-04-25 Outpatient Kenny, STLMLC STLMLC [id number] Common 12:31:21 Evelyn 38869 [facility] 2021-04-25 Outpatient Kenny, STLMLC STLMLC [id number] Common 12:30:55 Evelyn 68625 [facility] 2021-04-25 Outpatient Kenny, STLMLC STLMLC [id number] Common 12:28:40 Evelyn 01026 [facility] 2021-04-25 Outpatient Kenny, STLMLC STLMLC [id number] Common 12:27:39 Evelyn 00066 [facility] 2021-04-25 Outpatient Kenny, STLMLC STLMLC [id number] Common 12:26:48 Evelyn 45725 [facility] 2021-04-25 Outpatient Kenny, STLMLC STLMLC [id number] Common 12:25:47 Evelyn 95449 [facility] 2021-04-25 Outpatient Kenny, STLMLC STLMLC [id number] Common 12:25:36 Evelyn 87228 [facility] 2021-04-25 Outpatient STLMLC STLMLC [id number] Common 12:24:11 [id number] [facility] 2021-04-25 Outpatient Sidney Guardado STGODWIN STLMLC [id number] Common 12:16:20 85594 [facility] 2021-04-25 Outpatient Sidney Guardado STGODWIN STLMLC [id number] Common 12:03:40 [id number] [facility] 2021-04-25 Outpatient Sidney Guardado STGODWIN STLMLC [id number] Common 11:46:48 Taylor 39412 [facility] 2021-11-28 2021-11-28 Office FERNY GANN [id number] [facility] 09:41:00 10:59:24 Visit BETSY AMBULATOR 350.1.13.21 College Y 0.2.7.2.686 of [id number] [facility] 375 e 2021-11-20 2021-11-20 ambulatory STLMLC STLMLC [id number] Common 00:00:00 00:00:00 [facility] 2021-11-19 2021-11-19 ambulatory STLMLC STLMLC [id number] Common 00:00:00 00:00:00 [facility] 2021-11-13 2021-11-13 ambulatory STLMLC STLMLC [id number] Common 00:00:00 00:00:00 [facility] 2021-11-13 2021-11-13 ambulatory STLMLC STLMLC [id number] Common 00:00:00 00:00:00 [facility] 2021-11-09 2021-11-09 Orders Doctor CHAIM [id number] Univers 00:00:00 00:00:00 Only Unassigned, HOLLEY 350.1.13.10 ity of [place] [facility] 4.2.7.2.686 Franki as [id number] [facility] 00[address] Branch 2021-11-09 2021-11-09 ambulatory STLMLC STLMLC [id number] Common 00:00:00 00:00:00 [facility] 2021-11-07 2021-11-07 ambulatory STLMLC STLMLC [id number] Common 00:00:00 00:00:00 [facility] 2021-11-01 2021-11-01 ambulatory STLMLC STLMLC [id number] Common 00:00:00 00:00:00 [facility] 2021-10-29 2021-10-29 ambulatory STLMLC STLMLC [id number] Common 00:00:00 00:00:00 [facility] 2021-10-25 2021-10-25 ambulatory STLMLC STLMLC [id number] Common 00:00:00 00:00:00 [facility] 2021-09-19 2021-09-19 ambulatory STLMLC STLMLC [id number] Common 00:00:00 00:00:00 [facility] 2021-09-18 2021-09-18 ambulatory STLMLC STLMLC [id number] Common 00:00:00 00:00:00 [facility] 2021-08-31 2021-08-31 Outpatient BCM BCM [id number] [facility] 09:02:54 10:42:34 Yousuf cantu of Medicin e 2021-08-26 2021-08-26 Emergency [facility] [id number] Univers 10:53:00 13:52:00 HALINA carey [facility] 2021-08-26 2021-08-26 Emergency [facility] [id number] [facility] 10:53:00 13:52:00 Halina HAWLEY 350.1.13.10 ity of [place] 4.2.7.2.686 [facility] [id number] [facility] 084 Branch 2021-08-26 2021-08-26 Orders Doctor RUCKER [id number] Univers 00:00:00 00:00:00 Only Unassigned, HOLLEY 350.1.13.10 ity of [facility] 4.2.7.2.686 Franki [id number] [facility] 009 Branch 2021-08-24 2021-08-24 Office FERNY GANN [id number] [facility] 09:35:23 11:37:52 Visit YOAMANDAI AMBULATOR 350.1.13.21 College Y 0.2.7.2.686 of [id number] [facility] 375 e 2021-08-15 2021-08-15 ambulatory STLMLC STLMLC [id number] Common 00:00:00 00:00:00 [facility] 2021-08-13 2021-08-13 ambulatory STLMLC STLMLC [id number] Common 00:00:00 00:00:00 [facility] 2021-07-31 2021-07-31 ambulatory STLMLC STLMLC [id number] Common 00:00:00 00:00:00 [facility] 2021-07-31 2021-07-31 ambulatory STLMLC STLMLC [id number] Common 00:00:00 00:00:00 [facility] 2021-06-27 2021-06-27 ambulatory STLMLC STLMLC [id number] Common 00:00:00 00:00:00 [facility] 2021-06-05 2021-06-[address] [facility] [id number] [facility] 12:01:16 23:59:00 [facility] 2021-06-05 2021-06-05 [facility] [id number] 12:01:16 23:59:00 [facility] 2021-06-05 2021-06-05 Office RICHIE GANN [id number] [facility] 10:31:09 13:24:42 Visit YOCONCHIS AMBULATOR 350.1.13.21 College Y 0.2.7.2.686 of [id number] [facility] System 375 e 2021-06-05 2021-06-05 Outside [facility] [id number] 00:00:00 00:00:00 Orders [facility] 2021-06-01 2021-06-01 ambulatory STLMLC STLMLC [id number] Common 00:00:00 00:00:00 [facility] 2021-05-29 2021-05-29 ambulatory STLMLC STLMLC [id number] Common 00:00:00 00:00:00 [facility] 2021-05-28 2021-05-28 ambulatory STLMLC STLMLC [id number] Common 00:00:00 00:00:00 [facility] 2021-05-28 2021-05-28 ambulatory STLMLC STLMLC [id number] Common 00:00:00 00:00:00 [facility] 2021-04-12 2021-04-12 ambulatory STLMLC STLMLC [id number] Common 00:00:00 00:00:00 [facility] 2021-04-12 2021-04-12 ambulatory STLMLC STLMLC [id number] Common 00:00:00 00:00:00 [facility] 2021-03-16 2021-03-16 ambulatory STLMLC STLMLC [id number] Common 00:00:00 00:00:00 [facility] 2021-03-01 2021-03-01 ambulatory STLMLC STLMLC [id number] Common 00:00:00 00:00:00 [facility] 2021-02-28 2021-02-28 ambulatory STLMLC STLMLC [id number] Common 00:00:00 00:00:00 [facility] 2021-01-31 2021-01-31 ambulatory STLMLC STLMLC [id number] Common 00:00:00 00:00:00 [facility] 2021-01-30 2021-01-30 ambulatory STLMLC STLMLC [id number] Common 00:00:00 00:00:00 [facility] 2021-01-29 2021-01-29 ambulatory STLMLC STLMLC [id number] Common 00:00:00 00:00:00 [facility] 2021-01-11 2021-01-11 Outpatient STLMLC STLMLC [id number] Common 00:00:00 00:00:00 [facility] 2021-01-02 2021-01-02 Outpatient STLMLC STLMLC [id number] Common 00:00:00 00:00:00 [facility] 2020-12-21 2020-12-21 Outpatient STLMLC STLMLC [id number] Common 00:00:00 00:00:00 [facility] 2020-11-06 2020-11-06 Outpatient STLMLC STLMLC [id number] Common 00:00:00 00:00:00 [facility] 2020-11-06 2020-11-06 Outpatient STLMLC STLMLC [id number] Common 00:00:00 00:00:00 [facility] 2020-10-30 2020-10-30 Outpatient STLMLC STLMLC [id number] Common 00:00:00 00:00:00 [facility] 2020-09-19 2020-09-19 Outpatient STLMLC STLMLC [id number] Common 00:00:00 00:00:00 [facility] 2020-08-16 2020-08-16 Outpatient STLMLC STLMLC [id number] Common 00:00:00 00:00:00 [facility] 2020-08-10 2020-08-10 Outpatient STLMLC STLMLC [id number] Common 00:00:00 00:00:00 [facility] 2020-08-04 2020-08-04 Outpatient STLMLC STLMLC [id number] Common 00:00:00 00:00:00 [facility] 2020-08-03 2020-08-03 Outpatient STLMLC STLMLC [id number] Common 00:00:00 00:00:00 [facility] 2020-08-02 2020-08-02 Outpatient STLMLC STLMLC [id number] Common 00:00:00 00:00:00 [facility] 2020-07-20 2020-07-20 Outpatient STLMLC STLMLC [id number] Common 00:00:00 00:00:00 [facility] 2020-07-17 2020-07-17 Outpatient STLMLC STLMLC [id number] Common 00:00:00 00:00:00 [facility] 2020-07-13 2020-07-13 Outpatient STLMLC STLMLC [id number] Common 00:00:00 00:00:00 [facility] 2020-07-12 2020-07-12 Office REJIRICHIEHerlinda [id number] [facility] 11:29:14 12:34:28 Visit ANAHII AMBULATOR [id number] [employer] Y 0.2.7.2.686 of [id number] [facility] 375 e 2020-06-30 2020-06-30 Outpatient STLMLC STLMLC [id number] Common 00:00:00 00:00:00 [facility] 2020-06-28 2020-06-28 Outpatient STLMLC STLMLC [id number] Common 00:00:00 00:00:00 [facility] 2020-06-18 2020-06-18 Outpatient STLMLC STLMLC [id number] Common 00:00:00 00:00:00 [facility] 2020-06-09 2020-06-09 Outpatient STLMLC STLMLC [id number] Common 00:00:00 00:00:00 [facility] 2020-06-09 2020-06-09 Outpatient STLMLC STLMLC [id number] Common 00:00:00 00:00:00 [facility] 2020-05-19 2020-05-19 Outpatient STLMLC STLMLC [id number] Common 00:00:00 00:00:00 [facility] 2020-05-04 2020-05-04 Outpatient STLMLC STLMLC [id number] Common 00:00:00 00:00:00 [facility] 2020-04-28 2020-04-28 Outpatient STLMLC STLMLC [id number] Common 00:00:00 00:00:00 [facility] 2020-04-28 2020-04-28 Outpatient STLMLC STLMLC [id number] Common 00:00:00 00:00:00 [facility] 2020-04-26 2020-04-26 Outpatient STLMLC STLMLC [id number] Common 00:00:00 00:00:00 [facility] 2020-04-25 2020-04-25 Outpatient STLMLC STLMLC [id number] Common 00:00:00 00:00:00 [facility] 2020-04-18 2020-04-18 Outpatient STLMLC STLMLC [id number] Common 00:00:00 00:00:00 [facility] 2020-04-10 2020-04-10 Outpatient STLMLC STLMLC [id number] Common 00:00:00 00:00:00 [facility] 2020-04-06 2020-04-06 Outpatient STLMLC STLMLC [id number] Common 00:00:00 00:00:00 [facility] 2020-02-11 2020-02-11 Outpatient STLMLC STLMLC [id number] Common 00:00:00 00:00:00 [facility] 2020-02-10 2020-02-10 Outpatient STLMLC STLMLC [id number] Common 00:00:00 00:00:00 [facility] 2020-02-04 2020-02-04 Outpatient STLMLC STLMLC [id number] Common 00:00:00 00:00:00 [facility] 2020-01-31 2020-01-31 Outpatient STLMLC STLMLC [id number] Common 00:00:00 00:00:00 [facility] 2020-01-27 2020-01-27 Outpatient STLMLC STLMLC [id number] Common 00:00:00 00:00:00 [facility] 2020-01-20 2020-01-20 Outpatient STLMLC STLMLC [id number] Common 00:00:00 00:00:00 [facility] 2020-01-17 2020-01-17 Outpatient STLMLC STLMLC [id number] Common 00:00:00 00:00:00 [facility] 2020-01-13 2020-01-13 Outpatient STLMLC STLMLC [id number] Common 00:00:00 00:00:00 [facility] 2020-01-10 2020-01-10 Outpatient STLMLC STLMLC [id number] Common 00:00:00 00:00:00 [facility] 2020-01-10 2020-01-10 Outpatient STLMLC STLMLC [id number] Common 00:00:00 00:00:00 [facility] 2020-01-06 2020-01-06 Outpatient STLMLC STLMLC [id number] Common 00:00:00 00:00:00 [facility] 2020-01-04 2020-01-04 Outpatient STLMLC STLMLC [id number] Common 00:00:00 00:00:00 [facility] 2019-12-31 2019-12-31 Outpatient STLMLC STLMLC [id number] Common 00:00:00 00:00:00 [facility] 2019-12-27 2019-12-27 Outpatient STLMLC STLMLC [id number] Common 00:00:00 00:00:00 [facility] 2019-12-27 2019-12-27 Outpatient STLMLC STLMLC [id number] Common 00:00:00 00:00:00 [facility] 2019-12-22 2019-12-22 Outpatient STLMLC STLMLC [id number] Common 00:00:00 00:00:00 [facility] 2019-12-22 2019-12-22 Outpatient STLMLC STLMLC [id number] Common 00:00:00 00:00:00 [facility] 2019-12-22 2019-12-22 Outpatient STLMLC STLMLC [id number] Common 00:00:00 00:00:00 [facility] 2019-12-16 2019-12-16 [id number] Common 09:00:00 09:00:00 t [facility] 2019-05-18 2019-05-18 Orders Doctor CHAIM [id number] Univers 00:00:00 00:00:00 Only Unassigned, HOLLEY 350.1.13.10 ity [facility] [place] [facility] 4.2.7.2.686 Franki as [id number] [address] 2019-05-18 2019-05-18 Orders Doctor CHAIM [id number] 00:00:00 00:00:00 Only Unassigned, HOLELY 350.1.13.10 [place] [facility] 4.2.7.2.686 [id number] [facility] 2019-05-16 2019-05-16 [facility] [id number] [facility] 00:00:00 00:00:00 Kaleb Hawley 350.1.13.10 [place] [id number] Ms dical [address] 2019-05-16 2019-05-[address] [facility] [id number] 00:00:00 00:00:00 Kaleb Hawley 350.1.13.10 [place] 4.2.7.2.686 Professio [id number] [address] 2019-04-04 2019-04-04 Emergency [facility] [id number] [facility] 15:59:44 18:51:00 LUKAS carey [facility] 2014-10-04 2014-10-04 Outpatient FERNY CABRERA [facility] [id number] [facility] 13:17:59 15:14:08 CHAIM cant[facility] Medicin e 2014-10-04 2014-10-04 Outpatient FERNY CHRISTIANSON [facility] [id number] [facility] 08:11:06 13:52:44 SMILEY cantu of Medicin e Results Test Description Test Time Test Comments Results Result Comments Source TROPONIN I 2021-08-26 17:06:36 Test Item Value Reference Range Interpretation Comme nts TROPONIN I (test code = <0.012 See_Comment [Au tomated message] The 5965832786) system which ge nerated this result tra [...] biotin. Lab Interpretation Normal (test code = 01793-0) [facility]. METABOLIC PANEL ([id number])2021-08-26 16:55:56 Test Item Value Reference Range Interpretation Comments NA (test code = 124 mmol/L 135-145 L 1051064454) K (test code = 4.5 mmol/L 3.5-5.0 5286013013) CL (test code = 88 mmol/L 98-108 L 5302655531) CO2 TOTAL (test code = 20 mmol/L 23-31 L 0577349061) AGAP (test code = 2-16 5220490304) BUN (test code = 22 mg/dL 7-23 9108344981) GLUCOSE (test code = 148 mg/dL 70-110 H 7287111605) CREATININE (test code = 1.56 mg/dL 0.50-1.04 H 2914897184) TOTAL BILI (test code = 0.7 mg/dL 0.1-1.5 3629596276) CALCIUM (test code = 10.3 mg/dL 8.6-10.6 3461472140) T PROTEIN (test code = 7.6 g/dL 6.3-8.2 0911878811) ALBUMIN (test code = 4.6 g/dL 3.5-5.0 5539114147) ALK PHOS (test code = 89 U/L 34-122 0780330990) ALTv (test code = 16 U/L 5-35 1742-6) AST(SGOT) (test code = 40 U/L 13-40 0688605388) eGFR (test code = mL/min/1.73m2 1899797099) FABRICE (test code = FABRICE) Association of [...] tests). Lab Interpretation Abnormal (test code = 24218-5) [facility] WITH [id number] 16:44:17 Test Item Value Reference Range Interpretation Comments WBC (test code = See_Comment [Automated 5016-2) message] The sy stem which generated this result transmitted reference range : 4.30 - 11.10 10*3/?L. The reference range was not used to interpret this result as normal/abnormal . RBC (test code = See_Comment [Automated 019-8) message] The sy stem which generated this [...] RDW-SD (test code = 39.6 fL 39.0-49.9 02881-6) RDW-CV (test code = 12.0 % 12.0-15.5 788-0) PLT (test code = See_Comment [Automated 777-3) message] The sy stem which generated this result transmitted reference range : 166 - 358 10*3/ ?L. The reference r mary was not used to interpret this result as normal/abnormal . MPV (test code = 9.4 fL 9.5-12.9 L 38831-2) NRBC/100 WBC (test See_Comment [Automat ed code = 3547758742) message] The system which generated this result transmitted reference range : 0.0 - 10.0 /100 WBCs. The refer ence range was not u sed to interpret th is result as normal/abnormal . NRBC x10^3 (test code <0.01 See_Comment [Auto mated = 1675146423) message] The s ystem which generated this result transmitted reference range : 10*3/?L. The reference range was not used to interpret this result as normal/abnormal . GRAN MAT (NEUT) % 70.6 % (test code = 770-8) IMM GRAN % (test code 0.60 % = 9266222159) LYMPH % (test code = 19.8 % 736-9) MONO % (test code = 7.7 % 5905-5) EOS % (test code = 0.7 % 713-8) BASO % (test code = 0.6 % 706-2) GRAN MAT x10^3(ANC) 6.20 10*3/uL 1.88-7.09 (test code = 2700131677) IMM GRAN x10^3 (test 0.05 10*3/uL 0.00-0.06 code = 1581103269) LYMPH x10^3 (test code 1.74 10*3/uL 1.32-3.29 = 731-0) MONO x10^3 (test code 0.68 10*3/uL 0.33-0.92 = 742-7) EOS x10^3 (test code = 0.06 10*3/uL 0.03-0.39 711-2) BASO x10^3 (test code 0.05 10*3/uL 0.01-0.07 = 704-7) Lab Interpretation Abnormal (test code = 83209-4) [facility] [id number] 13:55:00Reason for Exam:->SOB (shortness of breath) [facility] RIRICARLOANISHA : 1940 Sex: FFINAL REPORT Exam: RAD, [...] Mild cardiomegaly, with trace left effusion. Signed: Fahrtash, Sukhi MDReport Verified Date/Time: 06/05/2021 13:55:50 Reading Location: [facility] Radiology Reading Room TROCARDIOGRAM [id number] 17:14:52Result approved by Betsy Gann MD on 07/12/20[facility]"
--- NOTE | 2021-11-29 21:13 | RAD REPORT ---
EXAM DESCRIPTION: RAD - Chest Single View - 11/29/2021 8:58 pm CLINICAL HISTORY: CHEST PAIN Chest pain. COMPARISON: Chest Single View dated 11/08/2021; Chest Single View dated 07/11/2020; Chest Single View dated 07/10/2020; Chest Single View dated 01/24/2020 FINDINGS: Portable technique limits examination quality. Mild interstitial pulmonary edema. The heart is significantly enlarged. No displaced fractures. IMPRESSION: Mild CHF.
[2021-11-29] MEDS ORDERED: MORPHINE 2 MG/ML SYR ONE (21:59)
[2021-11-29] MEDS ORDERED: ONDANSETRON 4 MG/2 ML VIAL ONE (21:59)
[2021-11-29] MEDS ORDERED: NA CHLORIDE 0.9% 1,000 ML ONE (21:59)
[2021-11-29 22:29] LABS: Absolute Lymphocytes (CBC) 1.8 K/uL (0.7-4.9); Hematocrit 35.2 % (36.0-45.0); Lymphocytes % 17.2 % (15.3-44.8); MCV 92.9 fL (80-100); MPV 7.4 fL (7.6-11.3); RBC Red Blood Cell Count 3.78 M/uL (3.86-4.86)
[2021-11-29 22:41] LABS: Potassium 3.2 mmol/L (3.5-5.1); Troponin High Sensitivity 13.3 pg/mL (<58.9)
[2021-11-29] MEDS ORDERED: FUROSEMIDE 20 MG/ 2ML VIAL ONE (23:42)
[2021-11-29] MEDS ORDERED: POTASSIUM 25 MEQ EFFERV TAB ONE (23:43)
[2021-11-30] MEDS ORDERED: MORPHINE 2 MG/ML SYR ONE (00:14)
[2021-11-30 00:18] LABS: Urine Blood Negative (Negative); Urine Glucose Negative (Negative); Urine Protein Negative (Negative); Urine Specific Gravity 1.015 (1.005-1.030)
--- NOTE | 2021-11-30 00:29 | ER ---
Nurse's Notes [facility] Name: Kari Grace Age: 81 yrs Sex: Female : 1940 Arrival Date: 11/29/2021 Time: 19:29 Bed 27 Private MD: Diagnosis: Chest pain, unspecified;Hypokalemia;Dementia in other diseases classified elsewhere without behavioral disturbance;Acute bronchitis, unspecified;Chronic atrial fibrillation;Systolic (congestive) heart failure Presentation: 11/29 19:48 Chief complaint: Patient's son or daughter states: "I was called to bring her up here. tw5 She is complaining of pain under her left breast and she has been trying to throw up. She lives at home with my dad and my little brother. She has a history of dementia.". Coronavirus screen: Vaccine status: Patient reports receiving the 2nd dose of the covid vaccine. Unknown just know she has had her shots. Ebola Screen: Patient negative for fever greater than or equal to 101.5 degrees Fahrenheit, and additional compatible Ebola Virus Disease symptoms Patient denies exposure to infectious person. Patient denies travel to an Ebola-affected area in the 21 days before illness onset. Initial Sepsis Screen: Does the patient meet any 2 criteria? No. Patient's initial sepsis screen is negative. Does the patient have a suspected source of infection? No. Patient's initial sepsis screen is negative. Risk Assessment: Do you want to hurt yourself or someone else? Patient reports no desire to harm self or others. Onset of symptoms is unknown. 19:48 Method Of Arrival: Wheelchair tw5 19:48 Acuity: JUNI 3 tw5 Triage Assessment: 19:49 General: Appears uncomfortable, Behavior is appropriate for age. Pain: Complains of tw5 pain in left breast Pain currently is 6 out of 10 on a pain scale. GI: Reports nausea. Historical: - Allergies: 19:49 PENICILLINS; tw5 - PMHx: 19:49 Atrial Fib; Brain bleed; brain aneurysm; CVA; 2018; Dementia; TIA; tw5 - Immunization history:: Flu vaccine is not up to date. - Social history:: Smoking status: Patient/guardian denies using tobacco, the patient reports quitting approximately 30 years ago. Screenin:50 Abuse screen: Denies threats or abuse. Denies injuries from another. Nutritional as6 screening: No deficits noted. Tuberculosis screening: No symptoms or risk factors identified. Fall Risk None identified. Assessment: 21:30 General: Appears in no apparent distress. Behavior is calm, cooperative. Pain: as6 Complains of pain in left lateral anterior chest and left lateral posterior chest and chest and left breast. Neuro: Level of Consciousness is awake, alert. Respiratory: Respiratory effort is even, unlabored. GI: Reports nausea. Vital Signs: 19:48 BP 134 / 78; Pulse 73; Resp 18; Temp 97.8; Pulse Ox 97% on R/A; Weight 81.65 kg; tw5 23:49 BP 166 / 98; Pulse 73; Resp 14 S; Pulse Ox 96% on R/A; as6 11/30 01:09 BP 143 / 99; Pulse 74; Resp 17 S; Pulse Ox 97% on R/A; as6 ED Course: 11/29 19:29 Patient arrived in ED. ja2 19:49 Triage completed. tw5 19:49 Arm band placed on right wrist. tw5 20:23 Leroy Villanueva, RN is Primary Nurse. as6 20:56 Zain Adams MD is Attending Physician. argelia 21:00 XRAY Chest (1 view) In Process Unspecified. EDMS 21:30 Inserted saline lock: 20 gauge in right antecubital area, using aseptic technique. as6 Blood collected. 23:11 CT Chest For PE Angio In Process Unspecified. EDMS 23:11 CT Abd/Pelvis - IV Contrast Only In Process Unspecified. EDMS 23:50 Bed in low position. Call light in reach. Side rails up X2. Adult w/ patient. Client as6 placed on continuous cardiac and pulse oximetry monitoring. NIBP monitoring applied. 11/30 00:24 Owen Luna MD is Hospitalizing Provider. argelia 00:30 Owen Luna MD is Hospitalizing Provider. argelia 00:31 Octaviano Pinto MD is Hospitalizing Provider. argelia 01:08 No provider procedures requiring assistance completed. Patient admitted, IV remains in as6 place. 07:53 Primary Nurse role handed off by Leroy Villanueva, RN eb Administered Medications: 06:16 Discontinued: NS 0.9% 1000 ml IV at 75 ml/hr continuous as6 11/29 22:13 Drug: NS 0.9% 1000 ml Route: IV; Rate: 75 ml/hr; Site: right antecubital; as6 22:13 Drug: morphine 2 mg Route: IVP; Infused Over: 4 mins; Site: right antecubital; as6 11/30 06:16 Follow up: Response: No adverse reaction as6 11/29 22:13 Drug: Zofran (Ondansetron) 4 mg Route: IVP; Site: right antecubital; as6 11/30 06:16 Follow up: Response: No adverse reaction 6 11/29 23:49 Drug: Potassium Effervescent Tablet 50 mEq Route: PO; as11/30 06:17 Follow up: Response: No adverse reaction as6 11/29 23:49 Drug: Lasix (furosemide) 20 mg Route: IVP; Site: right antecubital; as6 11/30 06:17 Follow up: Response: No adverse reaction as6 00:13 Drug: morphine 2 mg Route: IVP; Infused Over: 4 mins; Site: right antecubital; as6 06:16 Follow up: Response: No adverse reaction as6 01:33 Drug: Xopenex (levalbuterol) 2.5 mg Route: Inhalation; as6 01:33 Drug: Rocephin (cefTRIAXone) 1 grams Route: IV; Rate: per protocol; Site: right as6 antecubital; 06:17 Follow up: Response: No adverse reaction; IV Status: Completed infusion; IV Intake: 42wdve5 01:33 Drug: Zithromax (azithromycin) 500 mg Route: PO; as6 06:16 Follow up: Response: No adverse reaction as6 01:33 Drug: Aspirin 81 mg Route: PO; as6 06:16 Follow up: Response: No adverse reaction as6 01:33 Drug: Lopressor (metoprolol TARTRATE) 50 mg Route: PO; as6 06:17 Follow up: Response: No adverse reaction as6 01:33 Drug: Lovenox (enoxaparin) 80 mg Route: Sub-Q; Site: abdomen; as6 06:17 Follow up: Response: No adverse reaction as6 Medication: 01:09 VIS not applicable for this client. as6 Intake: 06:17 IV: 50ml; Total: 50ml. as6 Outcome: 00:28 Decision to Hospitalize by Provider. argelia 01:09 Admitted to ER Hold. Please see [facility] for further documentation. as6 01:09 Condition: stable 10:56 Patient left the ED. Signatures: Dispatcher [employer] EDZain Gonzales MD MD cha Smirch, Shelby, RN RN Sima Valdez Jessica ja2 Wood, Tiffany tw5 Leroy Villanueva RN RN as6
--- NOTE | 2021-11-30 00:29 | EDPHYS ---
Physician Documentation [facility] Name: Kari Grace Age: 81 yrs Sex: Female : 1940 Arrival Date: 11/29/2021 Time: 19:29 Bed 27 Private MD: BRIANNA Physician Zain Adams HPI: 11/29 21:40 This 81 yrs old Female presents to ER via Wheelchair with complaints of argelia Nausea, Pain Under Breast. 21:40 The patient presents to the emergency department with nausea, vomiting, that is argelia intermittent. Onset: The symptoms/episode began/occurred yesterday. Possible causes: unknown. The symptoms are aggravated by nothing. The symptoms are alleviated by nothing. Associated signs and symptoms: Pertinent positives: nausea, vomiting. Severity of symptoms: At their worst the symptoms were moderate in the emergency department the symptoms have improved moderately. The patient has not experienced similar symptoms in the past. Historical: - Allergies: 19:49 PENICILLINS; tw5 - PMHx: 19:49 Atrial Fib; Brain bleed; brain aneurysm; CVA; 2018; Dementia; TIA; tw5 - Immunization history:: Flu vaccine is not up to date. - Social history:: Smoking status: Patient/guardian denies using tobacco, the patient reports quitting approximately 30 years ago. ROS: 21:49 Constitutional: Negative for fever, chills, and weight loss, Eyes: Negative for injury, argelia pain, redness, and discharge, ENT: Negative for injury, pain, and discharge, Neck: Negative for injury, pain, and swelling, Respiratory: Negative for shortness of breath, cough, wheezing, and pleuritic chest pain, Abdomen/GI: Negative for abdominal pain, nausea, vomiting, diarrhea, and constipation, Back: Negative for injury and pain, : Negative for injury, bleeding, discharge, and swelling, MS/Extremity: Negative for injury and deformity, Skin: Negative for injury, rash, and discoloration, Neuro: Negative for headache, weakness, numbness, tingling, and seizure, Psych: Negative for depression, anxiety, suicide ideation, homicidal ideation, and hallucinations, Allergy/Immunology: Negative for hives, rash, and allergies, Endocrine: Negative for neck swelling, polydipsia, polyuria, polyphagia, and marked weight changes, Hematologic/Lymphatic: Negative for swollen nodes, abnormal bleeding, and unusual bruising. 21:49 Cardiovascular: Positive for chest pain, of the left lateral posterior chest and left lateral anterior chest. Exam: 21:49 Constitutional: This is a well developed, well nourished patient who is awake, alert, argelia and in no acute distress. Head/Face: Normocephalic, atraumatic. Eyes: Pupils equal round and reactive to light, extra-ocular motions intact. Lids and lashes normal. Conjunctiva and sclera are non-icteric and not injected. Cornea within normal limits. Periorbital areas with no swelling, redness, or edema. ENT: Nares patent. No nasal discharge, no septal abnormalities noted. Tympanic membranes are normal and external auditory canals are clear. Oropharynx with no redness, swelling, or masses, exudates, or evidence of obstruction, uvula midline. Mucous membranes moist. Neck: Trachea midline, no thyromegaly or masses palpated, and no cervical lymphadenopathy. Supple, full range of motion without nuchal rigidity, or vertebral point tenderness. No Meningismus. Cardiovascular: Regular rate and rhythm with a normal S1 and S2. No gallops, murmurs, or rubs. Normal PMI, no JVD. No pulse deficits. Respiratory: Lungs have equal breath sounds bilaterally, clear to auscultation and percussion. No rales, rhonchi or wheezes noted. No increased work of breathing, no retractions or nasal flaring. Abdomen/GI: Soft, non-tender, with normal bowel sounds. No distension or tympany. No guarding or rebound. No evidence of tenderness throughout. Back: No spinal tenderness. No costovertebral tenderness. Full range of motion. Female : Normal external genitalia. Skin: Warm, dry with normal turgor. Normal color with no rashes, no lesions, and no evidence of cellulitis. MS/ Extremity: Pulses equal, no cyanosis. Neurovascular intact. Full, normal range of motion. Neuro: Awake and alert, GCS 15, oriented to person, place, time, and situation. Cranial nerves II-XII grossly intact. Motor strength 5/5 in all extremities. Sensory grossly intact. Cerebellar exam normal. Normal gait. Psych: Awake, alert, with orientation to person, place and time. Behavior, mood, and affect are within normal limits. 21:49 Chest/axilla: Inspection: normal, Palpation: tenderness, that is moderate, of the left lateral posterior chest and left lateral anterior chest, Axilla: are normal, Breasts: are normal, symmetrical shape, no abscess, , no cellulitis, , no mass(es), no nipple discharge, no rash, no swelling, , no tenderness to palpation. Vital Signs: 19:48 BP 134 / 78; Pulse 73; Resp 18; Temp 97.8; Pulse Ox 97% on R/A; Weight 81.65 kg; tw5 23:49 BP 166 / 98; Pulse 73; Resp 14 S; Pulse Ox 96% on R/A; as6 11/30 01:09 BP 143 / 99; Pulse 74; Resp 17 S; Pulse Ox 97% on R/A; as6 MDM: 11/29 20:56 Patient medically screened. argelia 21:51 Differential diagnosis: abnormal EKG, anxiety, coronary artery disease chest wall pain, argleia congestive heart failure cholecystitis, Cholelithiasis Nonspecific abd pain, pancreatitis, diverticulitis. HEART Score: History: Slightly Suspicious (0), Age: > or = 65 years (2), Risk Factors: > or = 3 Risk factors for atherosclerotic disease (2). The patient was not given aspirin in the Emergency Department. Not indicated due to patient's past medical history. The patient's deep vein thrombosis risk score was calculated as follows: Total Score: 0. This patient was found to be at low risk for a deep vein thrombosis by using the Well's assessment criteria. The patient's pulmonary embolism risk score was calculated as follows: Total Score: 0-2 points. This patient was found to be at low risk for a pulmonary embolism by using the Well's assessment criteria. RANDY Risk Score: 1 - patient's age is greater or equal to 65 years, 1 - Three or more CAD risk factors, 1- Known CAD, 1 - Recent [<24hrs] Severe Angina, TOTAL SCORE = 4. Data reviewed: vital signs, nurses notes, lab test result(s), EKG, radiologic studies, CT scan, plain films. Data interpreted: monitor worker: rate is 73 beats/min, rhythm is regular, Pulse oximetry: on room air is 73 %. Test interpretation: by ED physician or midlevel provider: ECG, plain radiologic studies. Counseling: I had a detailed discussion with the patient and/or guardian regarding: the historical points, exam findings, and any diagnostic results supporting the discharge/admit diagnosis, lab results, radiology results. 11/29 20:14 Order name: Basic Metabolic Panel; Complete Time: 22:44 [facility] 11/29 20:14 Order name: CBC with Diff; Complete Time: 22:44 [facility] 11/29 20:14 Order name: Troponin HS; Complete Time: 22:44 [facility] 11/29 20:18 Order name: SARS-COV-2 RT PCR (Document "Date of Onset" if Symptomatic); Complete Time: [facility] 23:15 11/29 22:20 Order name: Lipase; Complete Time: 22:44 [facility] 11/30 00:18 Order name: Urine Dipstick-Ancillary; Complete Time: 00:22 [facility] 11/30 00:23 Order name: PT-INR [facility] 11/30 00:24 Order name: BNP [facility] 11/30 03:32 Order name: CBC with Automated Diff [facility] 11/30 03:43 Order name: Comprehensive Metabolic Panel [facility] 11/30 03:43 Order name: Troponin High Sensitivity [facility] 11/30 03:43 Order name: Lipid Profile [facility] 11/30 10:13 Order name: Troponin High Sensitivity [facility] 11/29 20:14 Order name: XRAY Chest (1 view); Complete Time: 21:22 [facility] 11/29 20:14 Order name: EKG; Complete Time: 20:14 [facility] 11/29 21:40 Order name: CT Chest For PE Angio [facility] 11/29 21:40 Order name: CT Abd/Pelvis - IV Contrast Only [facility] 11/29 20:14 Order name: Cardiac monitoring; Complete Time: 23:49 [facility] 11/29 20:14 Order name: EKG - Nurse/Tech; Complete Time: 22:13 [facility] 11/29 20:14 Order name: IV Saline Lock; Complete Time: 22:13 [facility] 11/29 20:14 Order name: Labs collected and sent; Complete Time: 22:13 [facility] 11/29 20:14 Order name: O2 Per Protocol; Complete Time: 23:49 [facility] 11/29 20:14 Order name: O2 Sat Monitoring; Complete Time: 23:49 [facility] 11/29 20:56 Order name: Urine Dipstick-Ancillary (obtain specimen); Complete Time: 00:18 [facility] Administered Medications: 11/30 06:16 Discontinued: NS 0.9% 1000 ml IV at 75 ml/hr continuous 11/29 22:13 Drug: NS 0.9% 1000 ml Route: IV; Rate: 75 ml/hr; Site: right antecubital; as6 22:13 Drug: morphine 2 mg Route: IVP; Infused Over: 4 mins; Site: right antecubital; as6 11/30 06:16 Follow up: Response: No adverse reaction 11/29 22:13 Drug: Zofran (Ondansetron) 4 mg Route: IVP; Site: right antecubital; as6 11/30 06:16 Follow up: Response: No adverse reaction 11/29 23:49 Drug: Potassium Effervescent Tablet 50 mEq Route: PO; 11/30 06:17 Follow up: Response: No adverse reaction 11/29 23:49 Drug: Lasix (furosemide) 20 mg Route: IVP; Site: right antecubital; 11/30 06:17 Follow up: Response: No adverse reaction 00:13 Drug: morphine 2 mg Route: IVP; Infused Over: 4 mins; Site: right antecubital; as6 06:16 Follow up: Response: No adverse reaction as 01:33 Drug: Xopenex (levalbuterol) 2.5 mg Route: Inhalation; 01:33 Drug: Rocephin (cefTRIAXone) 1 grams Route: IV; Rate: per protocol; Site: right as6 antecubital; 06:17 Follow up: Response: No adverse reaction; IV Status: Completed infusion; IV Intake: 31dayb9 01:33 Drug: Zithromax (azithromycin) 500 mg Route: PO; as 06:16 Follow up: Response: No adverse reaction as6 01:33 Drug: Aspirin 81 mg Route: PO; as6 06:16 Follow up: Response: No adverse reaction as6 01:33 Drug: Lopressor (metoprolol TARTRATE) 50 mg Route: PO; 06:17 Follow up: Response: No adverse reaction as6 01:33 Drug: Lovenox (enoxaparin) 80 mg Route: Sub-Q; Site: abdomen; as6 06:17 Follow up: Response: No adverse reaction as6 Disposition Summary: 11/30/21 00:28 Hospitalization Ordered Hospitalization Status: Observation argelia Condition: Fair argelia Problem: new argelia Symptoms: have improved argelia Bed/Room Type: Standard argelia Provider: Octaviano Pinto(11/30/21 00:31) argelia Location: Telemetry/MedSurg (observation)(11/30/21 08:47) eb Room Assignment: 411(11/30/21 08:47) eb Diagnosis - Chest pain, unspecified argelia - Hypokalemia argelia - Dementia in other diseases classified elsewhere without behavioral disturbance argelia - Acute bronchitis, unspecified argelia - Chronic atrial fibrillation argelia - Systolic (congestive) heart failure argelia Forms: - Medication Reconciliation Form argelia - SBAR form argelia Signatures: Dispatcher [employer] EDMS Zain Adams MD MD cha Mickail, Joel, PA PA jmm Attema, Lee, HOME CARE MUSIC THERAPIST-C HOME CARE MUSIC THERAPIST-Cla1 Romina Saldana, RN RN Sima Holguin Tiffany tw5 Leroy Villanueva RN RN as6 Corrections: (The following items were deleted from the chart) 11/29 22:20 20:57 LIPASE+C.LAB.BRZ ordered. EDWI EDMS 11/30 00:31 00:28 Owen Luna cha argelia 01:03 00:28 Telemetry/MedSurg (observation) argelia cg 01:03 00:28 argelia cg 08:47 01:03 [facility] ER HOLD cg eb 08:47 01:03 ERHOLD- cg eb
[2021-11-30] MEDS ORDERED: ASPIRIN 81 MG CHEWABLE TABLET ONE (00:42)
[2021-11-30] MEDS ORDERED: METOPROLOL TAR 50 MG TAB ONE (00:42)
[2021-11-30] MEDS ORDERED: LEVALBUTEROL 1.25 MG/3 ML NEB ONE (00:43)
[2021-11-30] MEDS ORDERED: AZITHROMYCIN 250 MG TAB ONE (00:43)
[2021-11-30] MEDS ORDERED: CEFTRIAXONE 1000 MG/VIAL ONE (00:43)
[2021-11-30] MEDS ORDERED: NA CHLORIDE 0.9% 50 ML ONE (00:44)
[2021-11-30] MEDS ORDERED: ENOXAPARIN 80 MG/0.8 ML SQ ONE (00:44)
--- NOTE | 2021-11-30 01:03 | P.HP ---
Certification for Inpatient Patient admitted to: Observation With expected LOS: <2 Midnights Patient will require the following post-hospital care: None Practitioner: I am a practitioner with admitting privileges, knowledge of patient current condition, hospital course, and medical plan of care. Services: Services provided to patient in accordance with Admission requirements found in Title 42 Section 412.3 of the Code of Federal Regulations <vKng Arita - Last Filed: 11/30/21 00:54> Patient History Date of Service: 11/30/21 Reason for admission: Chest pain History of Present Illness: 81-year-old female with history of atrial fibrillation status post watchman procedure, hypertension, hyperlipidemia, dementia presents the emergency department for left-sided chest pain. She reports pain in her anterior left breast that started earlier today is associated with some shortness of breath. She was evaluated here in the emergency department and labs were significant for a potassium of 3.2 initial troponin negative EKG with A. fib with slow ventricular response rate in the 50s no ST elevations. Patient had CT scan performed which was negative for pulm embolism, showed prominent main pulmonary trunk which can be seen with pulmonary arterial hypertension, moderate cardiomegaly, focal mucous plugging in the lateral left upper lobe no pulmonary consolidation or pleural effusion, mild diffuse wall thickening of the urinary bladder. Patient denies any urinary symptoms urinalysis not suggestive of UTI. ED read wishes to admit for ACS rule out/chest pain. - Past Medical/Surgical History Diabetic: No -: History of CVA -: Atrial fibrillation with history of watchman procedure -: Hypertension -: Dementia -: Watchman procedure Psychosocial/ Personal History: Patient lives at home - Family History Brother -: Heart disease, Cancer - Social History Alcohol use: No CD- Drugs: No Caffeine use: No Place of Residence: Home <Kvng Arita - Last Filed: 11/30/21 00:54> Date of Service: 11/30/21 <Octaviano Pinto - Last Filed: 11/30/21 23:21> Allergies Penicillins Allergy (Verified 07/10/20 20:19) Anaphylaxis Home Medications: Atorvastatin Calcium 40 mg PO BEDTIME 07/11/20 Citalopram Hydrobromide [Celexa] 20 mg PO DAILY 07/11/20 Donepezil HCl 10 mg PO DAILY 07/11/20 Levothyroxine [Synthroid*] 112 mcg PO [id number] 07/11/20 Metoprolol Tartrate 100 mg PO BID #60 tablet 07/11/20 Alfuzosin HCl 10 mg PO DAILY 11/30/21 Carbidopa/Levodopa [Carbidopa-Levodopa 25-100 Tab] 1 tab PO BID 11/30/21 Chlorthalidone 25 mg PO DAILY 11/30/21 Nitrofurantoin Macrocrystal [Macrodantin] 100 mg PO DAILY 11/30/21 hydroCHLOROthiazide [Hydrochlorothiazide] 25 mg PO DAILY 11/30/21 Review of Systems 10-point ROS is otherwise unremarkable Respiratory: Shortness of Breath Cardiovascular: Chest Pain <Kvng Arita - Last Filed: 11/30/21 00:54> Physical Examination - Physical Exam General: Alert, In no apparent distress, Oriented x3 HEENT: Atraumatic, PERRLA, Mucous membr. moist/pink, EOMI, Sclerae nonicteric Neck: Supple, 2+ carotid pulse no bruit, No LAD, Without JVD or thyroid abnormality Respiratory: Clear to auscultation bilaterally, Normal air movement Cardiovascular: Regular rate/rhythm, Normal S1 S2 Capillary refill: <2 Seconds Gastrointestinal: Normal bowel sounds, No tenderness Musculoskeletal: No tenderness Integumentary: No rashes Neurological: Normal speech, Normal strength at 5/5 x4 extr, Normal tone, Normal affect - Studies Laboratory Data (last 24 hrs) 11/29/21 22:10: WBC 10.40, Hgb 12.1, Hct 35.2 L, Plt Count 186 11/29/21 22:10: Sodium 137, Potassium 3.2 L, BUN 14, Creatinine 1.01, Glucose 134 H, Lipase 99 11/29/21 20:56: Lipase Cancelled <Kvng Arita - Last Filed: 11/30/21 00:54> Assessment and Plan - Plan Assessment: Chest pain rule out ACS Chronic atrial fibrillation status post watchman procedure Hypertension Hyperlipidemia hx of CVA Dementia Plan: Chest pain rule out ACS: Trend troponins, cardiology consult. monitor on tele. Last echo 07/11/20 normal. Appreciate further input from cardiology. Chronic atrial fibrillation status post watchman procedure: Continue home meds once verified, was previously on metoprolol 100 BID but unsure if still on this regimen. Rate controlled at this time. Hypertension: Continue home meds once verified Hyperlipidemia: Continue home meds once verified hx of CVA: Continue home meds once verified Dementia: Continue home meds once verified DVT PPX: Lovenox Code status: Full Discharge Plan: Home Plan to discharge in: 24 Hours - Advance Directives Does patient have a Living Will: No Does patient have a Durable POA for Healthcare: No - Code Status/Comfort Care Code Status Assessed: Yes (Full code) Critical Care: No Time Spent Managing Pts Care (In Minutes): 70 <Kvng Arita - Last Filed: 11/30/21 00:54>
[2021-11-30] MEDS ORDERED: ONDANSETRON 4 MG/2 ML VIAL IV PRN (01:12)
[2021-11-30] MEDS ORDERED: BENZONATATE 100 MG CAP PO PRN (01:12)
[2021-11-30] MEDS ORDERED: ACETAMINOPHEN 500 MG TAB PO PRN (01:12)
[2021-11-30 03:23] VITALS: BMI 31.8
[2021-11-30 03:28] LABS: Absolute Lymphocytes (CBC) 2.1 K/uL (0.7-4.9); Hematocrit 33.7 % (36.0-45.0); Lymphocytes % 25.4 % (15.3-44.8); MCV 92.3 fL (80-100); MPV 7.4 fL (7.6-11.3); RBC Red Blood Cell Count 3.65 M/uL (3.86-4.86)
[2021-11-30 03:42] LABS: Albumin 3.6 g/dL (3.4-5.0); Bilirubin Total 0.5 mg/dL (0.2-1.0); Potassium 3.9 mmol/L (3.5-5.1); Protein, Total 7.4 g/dL (6.4-8.2); Troponin High Sensitivity 11.5 pg/mL (<58.9)
--- NOTE | 2021-11-30 07:19 | EKG ---
Test Date: 2021-11-29 Test Time: 22:02:38 Physician Recruiter: MEASUREMENT RESULTS: Intervals: Rate: 56 NC: QRSD: 150 QT: 514 QTc: 496 [place]: P: NC: QRS: 68 T: -66 INTERPRETIVE STATEMENTS: Atrial fibrillation with slow ventricular response Right bundle branch block Septal infarct, age undetermined T wave abnormality, consider inferolateral ischemia or digitalis effect Abnormal ECG Compared to ECG 11/08/2021 17:25:54 Right bundle-branch block now present T-wave abnormality now present Left-axis deviation no longer present ST (T wave) deviation no longer present Myocardial infarct finding still present Possible ischemia still present Electronically Signed On 11-30-21 07:18:20 CDT by Spencer Obrien
[2021-11-30] MEDS ORDERED: ASPIRIN EC 81 MG TAB PO SCH (09:00)
[2021-11-30] MEDS ORDERED: ENOXAPARIN 40 MG/0.4 ML SQ SCH ×2 (09:00→21:00)
[2021-11-30] MEDS ORDERED: PNEUMOCOCCAL VACCINE 0.5 ML IMVAC ONE (09:00)
--- NOTE | 2021-11-30 10:57 | CON ---
Date of Consultation: 11/30/2021 History Of Present Illness: Ms. Grace is 81. Patient is admitted on 11/30/[address] Pinto with c hest pain and nausea. She was seen on 11/30/2021, admitted on 11/30/2021. She has a past medical hi story of atrial fibrillation, brain bleed, CVA, TIA, and dementia as well as hypothyroidism and dysli pidemia. Ms. Grace was very difficult to get a history from her. When I saw her, she denied any ch est pain, nausea, vomiting, diaphoresis, PND, orthopnea, pedal edema, palpitations, or syncope. Past Medical History: As stated above. Allergies: SHE IS ALLERGIC TO PENICILLIN. Review of Systems: Negative. Social History: Negative. Family History: Negative. Medications At Home: Include Lipitor, Celexa, metoprolol, benazepril, Synthroid. Physical Examination: Vital Signs: Stable, afebrile. General: Alert and oriented to name and place. She was in atrial fibrillation at a rate of 90, afeb rile. HEENT: Negative. Neck: Supple. No bruit. Chest: Clear. Cardiac: Revealed atrial fibrillation. Abdomen: Benign. Extremities: Revealed no clubbing, cyanosis, or edema. Diagnostic Data: Unremarkable except for a BNP of 4400. Impression And Plan: 1.Atypical chest pain with nausea, most likely gastroesophageal in nature, elevated BNP may be chron ic and may be secondary to the atrial fibrillation. Echocardiogram is pending. 2.History of atrial fibrillation, rate controlled with metoprolol. Not a candidate for anticoagulat ion because of her history of brain bleed. 3.Dementia. 4.Hypothyroidism. I will continue to follow her. JESSICA/REYNALDO Voice ID: [id number] Report ID: [id number]
[2021-11-30 11:10] VITALS: O2SAT 97
[2021-11-30 11:22] LABS: Protime INR 1.17
--- NOTE | 2021-11-30 14:06 | RAD REPORT ---
EXAM DESCRIPTION: CT - Abdomen Pelvis W Contrast - 11/30/2021 4:12 am CLINICAL HISTORY: LUQ abdominal pain. COMPARISON: None. TECHNIQUE: CTA of the chest, and CT of the abdomen and pelvis was performed following intravenous ad ministration of iodinated contrast. Axial soft tissue and lung window, and coronal and sagittal soft tissue window reconstructions were created and sent to PACS. 3D postprocessing was performed on an independent workstation, with images sent to PACS for subsequen t review. This exam was performed according to our departmental dose-optimization program, which includes autom ated exposure control, adjustment of the mA and/or kV according to patient size and/or use of iterati ve reconstruction technique. FINDINGS: Mild motion degradation throughout the abdomen and pelvis. Vascular: Mild streak artifact through the pulmonary artery due to patient arm positioning and the ad jacent left atrial appendage clip. No CT evidence of acute pulmonary thromboembolism, within these li mitations. No evidence of aortic aneurysm or dissection. Mildly prominent main pulmonary trunk, measu ring up to 3.9 cm in diameter. Reflux of contrast into the hepatic veins. Mild calcific atheroscleros is in the aorta. Lungs and pleura: Mild motion degradation through the lungs. Mild left hemithorax volume loss. Suspec esha scarring and/or atelectasis in the lingula. Suspected focal mucous plugging along the lateral asp ect of the left upper lobe (coronal series 506 image 57). No pulmonary consolidation. No pleural effu easton. No pneumothorax. Mediastinum and neck: No mediastinal lymphadenopathy by CT size criteria. Unremarkable appearance of the thyroid gland. Cardiac: Moderate cardiomegaly. No pericardial effusion. Left atrial appendage clip in place. Hepatobiliary: No concerning hepatic lesion identified. The portal veins are patent. The gallbladder is surgically absent. Suspected mild periportal edema. No definite biliary ductal dilatation, within the limitation of motion degradation. Pancreas: Unremarkable. Spleen: Unremarkable. Gastrointestinal: No evidence of bowel obstruction or perienteric inflammation. The appendix is nonvi sualized, but there are no pericecal inflammatory changes. Adrenals: No abnormality identified in either adrenal gland. Renal: No concerning parenchymal abnormality in either kidney. No hydronephrosis or urolithiasis. Bladder/Reproductive: Mild diffuse wall thickening of the underdistended urinary bladder, containing a small focus of gas. Vascular/Lymphatics: No lymphadenopathy identified by CT size criteria. Abdominal aorta is normal in caliber. Mild calcific atherosclerosis. Musculoskeletal: No concerning osseous lesion identified. Osteopenic appearance of the bones. Promine nt bilateral glenohumeral osteoarthrosis. Moderate degenerative changes in the lumbar spine. Fluid / peritoneum: Trace pelvic free fluid. No free intraperitoneal air identified. IMPRESSION: 1. No CTA evidence of acute pulmonary thromboembolism, with mild limitations of this s tudy. 2. Mildly prominent main pulmonary trunk, which can be seen with pulmonary arterial hypertension. 3. Moderate cardiomegaly with reflux of contrast into the hepatic veins, suggestive of elevated rig ht heart pressures. 4. Suspected focal mucous plugging in the lateral left upper lobe. No pulmonary consolidation or pl eural effusion identified. 5. Mild diffuse wall thickening of the urinary bladder. Small intramural focus of gas. Correlate fo r potential cystitis. 6. Trace pelvic free fluid. Electronically signed by: Nichol Smart MD 11/29/2021 11:45 PM CDT Due to temporary technical issues with the PACS/Fluency reporting system, reports are being signed by the in house radiologists without review as a courtesy to insure prompt reporting. The interpreting radiologist is fully responsible for the content of the report.
--- NOTE | 2021-11-30 14:22 | ECHO ---
HEIGHT: 5 ft 3 in WEIGHT: 180 lb 0 oz DATE OF STUDY: 11/30/[address]: Spencer Obrien MD 2-DIMENSIONAL: YES M.MODE: YES DOPPLER: YES COLOR FLOW: YES TDS: NO PORTABLE: YES DEFINITY: NO BUBBLE STUDY: NO DIAGNOSIS: CHEST PAIN CARDIAC HISTORY: CATHERIZATION: SURGERY: PROSTHETIC VALVE: PACEMAKER: MEASUREMENTS (cm) DIASTOLIC (NORMALS) SYSTOLIC (NORMALS) IVSd 1.1 (0.6-1.2) LA Diam 4.3 (1.9-4.0) LVEF 63% LVIDd 3.5 (3.5-5.7) LVIDs 2.4 (2.0-3.5) %FS 34% LVPWd 1.2 (0.6-1.2) Ao Diam 2.6 (2.0-3.7) 2 DIMENSIONAL ASSESSMENT: RIGHT ATRIUM: ENLARGED LEFT ATRIUM: ENLARGED RIGHT VENTRICLE: NORMAL LEFT VENTRICLE: NORMAL TRICUSPID VALVE: MITRAL VALVE: PULMONIC VALVE: AORTIC VALVE: NORMAL PERICARDIAL EFFUSION: NONE AORTIC ROOT: NORMAL LEFT VENTRICULAR WALL MOTION: NORMAL DOPPLER/COLOR FLOW: SEE BELOW COMMENTS: NORMAL LEFT VENTRICULAR EJECTION FRACTION 55-60%. NORMAL WALL MOTION. MILD MITRAL AND TRICUSPID REGURGITATION. BI-ATRIAL ENLARGEMENT. TECHNOLOGIST: Melissa MORELAND
[2021-11-30 20:52] VITALS: BP 135/63; TEMP 97.2
[2021-11-30] MEDS ORDERED: ATORVASTATIN 40 MG TAB PO SCH (21:00)
[2021-12-01] MEDS ORDERED: ASPIRIN EC 81 MG TAB PO SCH (09:00)
== END 2021-11-30 20:35 | disposition home or self-care (01) ==
LOC: ER 19:28 → ERHOLD 11-30 00:56 → 4TH 11-30 10:28
PROVIDERS: ADMIT Hospitalist; ATTEND Hospitalist
DX: R07.89 Other chest pain (principal); I48.19 Other persistent atrial fibrillation; I11.0 Hypertensive heart disease with heart failure; I50.20 Unspecified systolic (congestive) heart failure; E87.6 Hypokalemia; E78.5 Hyperlipidemia, unspecified; F03.90 Unspecified dementia, unspecified severity, without behavioral disturbance, psychotic disturbance, mood disturbance, and anxiety; Z86.73 Personal history of transient ischemic attack (TIA), and cerebral infarction without residual deficits; Z20.822 Contact with and (suspected) exposure to COVID-19
CPT/HCPCS: 96365; 93005; 93306; 85025 ×2; 80048; 36415 ×2; 85610; 80061; 81003; 84484 ×3; 83690; 80053; 83880; 71275; 74177; 71045; 94010; 96375; 96372; 99285; 96366; U0003; Q9967; J1940; J2270 ×2; J7030; J2405; G0378 ×2; J7614

== ENCOUNTER 2022-08-09 10:39 | Inpatient (IN) | payer OTHER ==
--- OUTSIDE RECORDS SUMMARY | 2022-08-09 10:57 | XMS REPORT | Continuity of Care Document ---
:1940 Author Organization [facility] t Address [address] [place] [address] [address] [place] [address] Care Team Providers Name Role Phone Nella Wen MD Primary Care Physician Diane Monk Attending Clinician Unavailable BLANCA WOLFE Attending Clinician Unavailable Evelyn Cox Attending Clinician Unavailable Sidney Guardado Attending Clinician Unavailable COTY FERNANDEZ Attending Clinician Unavailable MARIOLA BURLESON Attending Clinician Unavailable CARLY MORALES Attending Clinician Unavailable VANESSAALEXA Attending Clinician Unavailable RYLAN RICKS Attending Clinician Unavailable Rambo AGUILA, Rylan Attending Clinician Grant Oakes MD Attending Clinician SUE GRIER Attending Clinician Unavailable Nurse, [facility] Attending Clinician Unavailable Unknown, Attending Attending Clinician Unavailable UNKNOWN, ATTENDING Attending Clinician Unavailable [email or web address] Attending Clinician Unavailable Coty Izquierdo Attending Clinician COTY COOPER Attending Clinician Unavailable [facility] Attending Clinician 2, [facility] Attending Clinician Unavailable MARIETTA GROVER Attending Clinician Unavailable Leeroy Kraus DO Attending Clinician Marietta Grover MD Attending Clinician Sue Grier MD Attending Clinician Doctor Unassigned, [place] Attending Clinician Unavailable Lanny Johnston PA-C Attending Clinician Poly Sauceda LCSW Attending Clinician Blanca Wolfe MD Attending Clinician Stacie Joseph RN Attending Clinician Unavailable NELLA GILBERT Attending Clinician Unavailable Halina Kurtz DO Attending Clinician Jeevan Roman MD Attending Clinician Nella Gilbert DO Attending Clinician MOISÉS GANN Attending Clinician Unavailable HALINA KURTZ Attending Clinician Unavailable MOISÉS GANN Attending Clinician Unavailable Moisés Gann MD Attending Clinician Kaleb Majano MD Attending Clinician LUKAS HENRY Attending Clinician Unavailable CHAIM CABRERA Attending Clinician Unavailable SMILEY CHRISTIANSON Attending Clinician Unavailable BLANCA WOLFE Admitting Clinician Unavailable [email or web address] Admitting Clinician Unavailable LEEROY KRAUS Admitting Clinician Unavailable NELLA GILBERT Admitting Clinician Unavailable Nella Gilbert DO Admitting Clinician HALINA KURTZ Admitting Clinician Unavailable LUKAS HENRY Admitting Clinician Unavailable Payers Payer Name Policy Type Policy Number Effective Date Expiration Date Deb beltran AETNA MEDICARE [id number] 2020 OUT OF NETWORK 00:00:00 WELL[employer]/AARP [id number] 2022 MEDICARE 00:00:00 ADVANTAGE MEDICARE PLAN [id number] HMO - AETNA AARP [facility] [id number] 2017 ADVANTAGE 00:00:00 HMO-POS-C CHOICE [id number] PPO/MEDICARE PPO AETNA MEDICARE 53 [id number] 2020 [facility] 00:00:00 - [facility] AETNA MEDICARE [id number] 2020 HMO POS 00:00:00 MEDICARE MB [id number] 2004 [facility] NOVITAS 00:00:00 - [facility] MEDICARE [id number] 2004 [facility] NOVITAS 00:00:00 - [facility] AETNA MEDICARE C1 [id number] [facility] - [facility] AETNA MEDICARE C1 [id number] [facility] - [facility] AETNA MEDICARE C1 [id number] Common S pirit - [facility] AETNA MEDICARE C1 [id number] Common S pirit [facility] AETNA MEDICARE C1 [id number] Common S [facility]irit [facility] AETNA MEDICARE C1 [id number] 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 00:00: [place] depression depression 00 Ak dical Branch Primary Primary Disease Active Univers parkinsoni parkinsoni 2-21 it y of sm sm 00:00: Medical Branch Loss of Loss of Disease Active Univers appetite appetite 2-21 ity of 00:00: [place] [facility] Mild Mild Disease Active Univers dehydratio dehydratio 2-21 it y of n n 00:00: Medical Branch Elevated Elevated Disease Active Unive rs brain brain 9-17 ity of natriureti natriureti [place] c peptide c peptide 00 Medi manny (BNP) (BNP) Branch level level Acute on Acute on Disease Active Unive rs chronic chronic 9-17 ity of diastolic diastolic 00:00: Shereen lucia CHF CHF 00 Medical (congestiv (congestiv Br anch e heart e heart failure), failure), NYHA class NYHA class 3 3 Epigastric Epigastric Disease Active U nivers pain pain 9-15 ity of 00:00: [place] [facility] Lightheade Lightheade Disease Active U nivers dness dness 8-17 ity of 00:00: [place] [facility] Fall Fall Disease Active Univers 8-17 ity of 00:00: [place] [facility] Nonspecifi Nonspecifi Disease Active U nivers c abnormal c abnormal 8-17 it y of results of results of 00:[place] function function 00 Medica l study of study of Branch kidney kidney Other Other Disease Active Univers chest pain chest pain 3-23 it y of 00:00: [place] [facility] SOB SOB Disease Active 2016-03 Univers (shortness (shortness 1-08 it y of of breath) of breath) [place]:00[place] Anemia Anemia Disease Active 2016-03 [facility] 1-08 [place] 00:00: of 00 Medicin e Anemia Anemia Disease Active 2016-03 Univers 0-20 ity of 00:00: [place] [facility] Dyslipidem Dyslipidem Disease Active U nivers ia ia 5-17 ity of 00:00: [place] [facility] Atrial Atrial Disease Active [facility] fibrillati fibrillati 5-17 Co llege on on 00:00: of 00 Medicin e Hemorrhagi Hemorrhagi Disease Active 2015-03 U morgan c stroke c stroke 16 ity of 00:00: [place] [facility] 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' nce 04-15 it y of s disease s disease 00:[place] with with 00 Medical behavioral behavioral Br anch disturbanc disturbanc e e Encephalop Encephalop Disease Active 2015-03 U morgan athy athy 16 ity of 00:00: [place] [facility] Diarrhea Diarrhea Disease Active 2015-03 Unive rs 16 ity of 00:00: [place] [facility] History of History of Disease Active 2015-03 U morgan surgery surgery 04-15 ity of for for 00:00: [place] cerebral [...] Active Methodi a-fib s/p a-fib s/p 12-18 st Left Left 00:00: Hospita atrial atrial 00 l appendage appendage clipping clipping Obesity, Obesity, Disease Recurre Meth ru Class II, Class II, nce 829 st BMI BMI 00:00: Hospita 35-39.9 35-39.9 00 l Syncope Syncope Disease Active 2014-03 Univers 1-11 ity of 00:00: [place] 00 Medical Branch Hypercalce Hypercalce Disease Active U morgan ryland ryland 7-15 ity of 00:00: [place] 00 Medical Branch Hyperhomoc Hyperhomoc Disease Active U morgan ysteinemia ysteinemia 7-15 it y of 00:00: [place] [facility] Paranoia Paranoia Disease Active Unive rs 7-15 ity of 00:00: [place] 00 Medical Branch Vascular Vascular Disease Active Unive rs dementia dementia 7-15 ity of 00:00: [place] [facility] Unspecifie Unspecifie Disease Active U nivers d atrial d atrial 7-18 ity of fibrillati fibrillati 00:[place] on Medical [place] Atrial Atrial Disease Recurre [facility] fibrillati fibrillati nce 7-18 Kizzy kes on by 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 00 Ce nter diogram diogram TIA TIA Disease Recurre Methodi (transient (transient nce 03-31 st ischemic ischemic 00:00: Hospit a attack) attack) 00 l h/o h/o Disease Recurre Methodi Intracrani Intracrani nce 03-31 st al al 00:00: Hospita Aneurysm Aneurysm 00 l s/p s/p clipping clipping Hypothyroi Hypothyroi Disease Recurre Methodi dism dism nce st Hospita l HTN HTN Disease Recurre Methodi nce st Hospita l HLD HLD Disease Recurre Methodi nce st Hospita l h/o ICH h/o ICH Disease Recurre Method i (intracere (intracere nce st bral bral Hospita hemorrhage hemorrhage l ) ) Cerebral Cerebral Disease Recurre Meth ru infarction infarction nce st Hospita l Chronic Stage 3a Problem Common kidney chronic Spirit disease kidney - [facility] stage 3A disease St (disorder) (CKD) [facility] [id number] Obesity Problem Commo n (BMI Spirit 30-39.9) - [facility] Dementia Dementia Problem Commo n Spirit [facility] Essential Essential Problem Com mon hypertensi hypertensi Sp rachell on on - [facility] [id number] Acquired Problem Comm on hypothyroi Spirit dism [facility] Late History of Problem Commo n effects of hemorrhagi Sp rachell cerebrovas c - [facility] cular cerebrovas St disease cular 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 Functional Functional Problem C ommon urinary incontinen Spiri t incontinen ce - [facility] Vitamin D Vitamin D Problem Com [facility] [id number] Splenomega Problem Com mon ly [facility] [id number] Chronic Problem Commo n a-fib [facility] [id number] Other Problem Common urinary [facility] incontinen [facility] [id number] Recurrent Problem Com mon UTI [facility] [id number] Chronic Problem Common cystitis [facility] [id number] PAD Problem Common (periphera Spirit l artery - [facility] disease) [facility] Depression Depression Problem C ommon [facility] [id number] Chronic Problem Common fatigue [facility] Hypertensi Hy ht/kd Problem Com mon ve heart NOS I-IV Spirit and w/o hf - [facility] chronic kidney [facility] [id number] Gastroesop Problem Co mmon hageal Spirit reflux - [facility] esophagiti [facility] s present Allergies, Adverse Reactions, Alerts Allergy Allergy Status Severity Reaction(s) Onset Inactive Treating Comm ents Source Name Type Date Date Clinician Latex Propensi Active Rash 2016-03 Univers ty to 04-19 ity of adverse 00:00: [place] reaction 00 Medical s Branch LATEX DRUG Active Rash 2016-03 Univers INGREDI 04-19 ity of 00:00: [place] 00 Medical Branch Penicill Propensi Active Swelling Whole Meth ru ins ty to 8-[address] adverse 00:00: swelling Hospita reaction 00 l s to drug Penicill Propensi Active Swelling 2014-03 Hives, [place] [...] 2014-03 Hives, Univ ers in ty to 1-11 etc. ity of adverse 00:00: [place] reaction 00 Medical s Branch Penicill Propensi Active Swelling [facility]: Medical reaction 00 Center s Penicill Propensi Active Swelling Whole [facility] or ins ty to 10-02 body College adverse 00:00: swelling of reaction 00 Medicin s to e drug PENICILL Allergy Active Swelling [facility] 00:[facility]: Medical 00 Center Penicill Propensi Active Swelling [facility] ins ty to 10-02 [facility] adverse 00:00: Medical reaction 00 Center s [id number] Drug Active rash Common 85 allergy Spirit - [facility] Social History Social Habit Start Date Stop Date Quantity Comments Source Gender identity [facility] Sexual orientation [facility] History of Tobacco [facility] - Use [facility] Exposure to 2022-07-06 2022-07-16 Not sure University of SARS-CoV-2 (event) 00:00:00 12:05:00 [facility] Tobacco use and 2021-12-20 2021-12-20 Smokeless Universit y of exposure 00:00:00 00:00:00 tobacco non-user [facility] History of Social 2016-09-29 2016-09-[address] function 00:00:00 00:00:00 Hospital Alcohol intake 2014-06-06 2014-06-[address] [facility] 00:00:00 00:00:00 non-drinker of Medical Ce nter alcohol (finding) Cigarette 2013-12-21 2013-12-21 [facility] of pack-years 00:00:00 00:00:00 Medicine Sex [birth year] [facility] kes 00:00:00 00:00:00 Medical Center Smoking Status Start Date Stop Date Source Former Smoker 2022-02-28 00:00:00 2022-02-28 00:00:00 [facility] - [facility] Medical Ce nter Never smoked tobacco [facility] Medications Ordered Filled Start Stop Current Ordering Indication Dosage Frequency Signature Comments Components Source Medication Medication Date Date Medication? Clinician (SIG) Name Name metoprolol 2022- No 100mg Take 4 Uni vers tartrate 25 4-24 04-24 tablets by i ty of mg tablet 17:01: 00:00 mouth in [place] 52 :00 the Medical morning Branch and 4 tablets in the evening. metoprolol 2022-0 Yes 100mg Take 4 Univ ers tartrate 25 4-24 tablets by it y of mg tablet 00:00[place] the Medical morning Branch and 4 tablets in the evening. metoprolol 2022-0 Yes 100mg Take 4 Univ ers tartrate 25 4-24 tablets by it y of mg tablet 00:00: [place] the Medical morning Branch and 4 tablets in the evening. metoprolol 3-0 Yes 100mg Take 4 Univ ers tartrate 25 4-24 tablets by it y of mg tablet 00:00: [place] 00 the Medical morning Branch and 4 tablets in the evening. metoprolol 2022-0 Yes 100mg Take 4 Univ ers tartrate 25 4-24 tablets by it y of mg tablet 00:00: [place] 00 the Medical morning Branch and 4 tablets in the evening. diphenoxyla 2022- No 1{tbl} 1 tablet, Univers te-atropine 07-16 Oral, ity of (LOMOTIL) 23:00: 22:38 ONCE, 1 [place] 2.5-0.025 00 :00 dose, On Medica l mg tablet 1 Tue Branch tablet 07/16/22 at 1800, ARELI cefTRIAXone 2022- No 1000mg 1,000 mg, Univers (ROCEPHIN) 07-16 IV ity of 1,000 mg in 21:15: 22:38 [place], [place] NaCl 0.9% 00 :00 ONCE, 1 Medical (NS) 100 mL dose, On Bran ch MINI-BAG 07/16/22 at 1615, Administer over 30 Minutes, 100 mL
Reas on for Anti-Infec tive: Documented Infection< br>Documen esha Infection Site: Urine<br&g t;Duration of Therapy: Other (see Comments) iopamidol 2022-2022- No [id number] 100mL 100 mL, Univers (ISOVUE 07-16 Intravenou ity o f 370-500 mL) 21:15: 21:15 s, ONCE, 1 [place] injection 00 :00 dose, On Medica l 100 mL Tue Branch 07/16/22 at 1615, Routine NaCl 0.9% 2022-0 2022- No 1000mL at 999 Uni vers (NS) bolus -18 04-18 mL/hr, ity of infusion 19:30: 22:38 1,000 mL, [place] 1,000 mL 00 :00 IV Medical Infusion, Branch ONCE, 1 dose, On Fri07/16/22 at 1430, STAT diphenoxyla 3-0 Yes [id number] 1{tbl} Take 1 Univers te-atropine 4-18 tablet by ity of (LOMOTIL) 00:00: mouth [place] 2.5-0.025 00 every 6 Medical mg tablet (six) Branch hours as needed (diarrhea) . cephALEXin 3-0 Yes [id number] 500mg Take 1 Univers (KEFLEX) 4-18 capsule by ity o f 500 mg 00:00: mouth in [place] capsule the morning Branch and 1 capsule in the evening. diphenoxyla 3-0 Yes [id number] 1{tbl} Take 1 Univers te-atropine 4-18 tablet by ity of (LOMOTIL) 00:00: mouth [place] 2.5-0.025 00 every 6 Medical mg tablet (six) Branch hours as needed (diarrhea) . cephALEXin 3-0 Yes [id number] 500mg Take 1 Univers (KEFLEX) 4-18 capsule by ity o f 500 mg 00:00: mouth in [place] capsule the morning Branch and 1 capsule in the evening. diphenoxyla 2023-0 Yes [id number] 1{tbl} Take 1 Univers te-atropine 4-18 tablet by ity of (LOMOTIL) 00:00: mouth [place] 2.5-0.025 00 every 6 Medical mg tablet (six) Branch hours as needed (diarrhea) . cephALEXin 2023-0 Yes [id number] 500mg Take 1 Univers (KEFLEX) 4-18 capsule by ity o f 500 mg 00:00: mouth in [place] capsule the morning Branch and 1 capsule in the evening. diphenoxyla 2023-0 Yes [id number] 1{tbl} Take 1 Univers te-atropine 4-18 tablet by ity of (LOMOTIL) 00:00: mouth [place] 2.5-0.025 00 every 6 Medical mg tablet (six) Branch hours as needed (diarrhea) . cephALEXin 2022-0 Yes [id number] 500mg Take 1 Univers (KEFLEX) 4-18 capsule by ity o f 500 mg 00:00: mouth in [place] capsule 00 the morning Branch and 1 capsule in the evening. diphenoxyla 2022-0 Yes [id number] 1{tbl} Take 1 Univers te-atropine 4-18 tablet by ity of (LOMOTIL) 00:00: mouth [place] 2.5-0.025 00 every 6 Medical mg tablet (six) Branch hours as needed (diarrhea) . cephALEXin 2022-0 Yes [id number] 500mg Take 1 Univers (KEFLEX) 4-18 capsule by ity o f 500 mg 00:00: mouth in [place] capsule the morning Branch and 1 capsule in the evening. rivastigmin Yes [id number] 1{patch Apply 1 Univers e 9.5 mg/24 4-07 } Patch to ity of hour patch 00:00: [place] the . Branch rivastigmin Yes [id number] 1{patch Apply 1 Univers e 9.5 mg/24 4-07 } Patch to ity of hour patch 00:00: [place] 00 the . Branch rivastigmin 2022- Yes [id number] 1{patch Apply 1 Univers e 9.5 mg/24 4-07 } Patch to ity of hour patch 00:00: [place] the . Branch rivastigmin 2022- Yes [id number] 1{patch Apply 1 Univers e 9.5 mg/24 4-07 } Patch to ity of hour patch 00:00: [place] 00 the morning. Branch rivastigmin 2022-0 Yes [id number] 1{patch Apply 1 Univers e 9.5 mg/24 4-07 } Patch to ity of hour patch 00:00: [place] 00 the morning. Branch rivastigmin 2022- Yes [id number] 1{patch Apply 1 Univers e 9.5 mg/24 4-07 } Patch to ity of hour patch 00:00: [place] 00 the Medical morning. Branch rivastigmin 2022-0 Yes [id number] 1{patch Apply 1 Univers e 9.5 mg/24 4-07 } Patch to ity of hour patch 00:00: [place] 00 the Medical morning. Branch rivastigmin 2022-0 Yes [id number] 1{patch Apply 1 Univers e 9.5 mg/24 4-07 } Patch to ity of hour patch 00:00: [place] 00 the Medical morning. Branch ciprofloxac 2022-0 202- Yes [id number] 500mg Take 1 Univers in HCl 3-20 03-28 tablet by ity of (CIPRO) 500 00:00: 04:59 [place] mg tablet 00 :00 every 24 Medica l (twenty-fo Branch ur) hours for 7 days. Cholecalcif 3-0 Yes 1000U Take 1 Uni vers stevan, 3-16 capsule by ity of Vitamin D3, 10:19: mouth [place] 25 mcg 39 the Medical ( morning. Branch unit) capsule metoprolol 3-0 Yes 100mg Take 4 Univ ers tartrate 25 3-16 tablets by it y of mg tablet 10:19: [place] 39 the Medical morning Branch and 4 tablets in the evening. B Complex 3-0 Yes Take by Unive rs Vitamins 3-16 mouth. ity of tablet 10:19: [place] [address] Medical Branch Cholecalcif 3-0 Yes 1000U Take 1 Uni vers stevan, 3-16 capsule by ity of Vitamin D3, 10:19: mouth in [place] 25 mcg 39 the Medical ( morning. Branch unit) capsule metoprolol 3-0 Yes 100mg Take 4 Univ ers tartrate 25 3-16 tablets by it y of mg tablet 10:19: mouth [place] 39 the Medical morning Branch and 4 tablets in the evening. B Complex 3-0 Yes Take by Unive rs Vitamins 3-16 mouth. ity of tablet 10:19: [place] [address] Medical Branch Cholecalcif 3-0 Yes 1000U Take 1 Uni vers stevan, 3-16 capsule by ity of Vitamin D3, 10:19: mouth in [place] 25 mcg 39 the Medical (1,000 morning. Branch unit) capsule metoprolol 2023-0 Yes 100mg Take 4 Univ ers tartrate 25 3-16 tablets by it y of mg tablet 10:19: mouth in [place] [address] the Medical morning Branch and 4 tablets in the evening. B Complex 3-0 Yes Take by Unive rs Vitamins 3-16 mouth. ity of tablet 10:19: [address] Branch Cholecalcif 2023-0 Yes 1000U Take 1 Uni vers stevan, 3-16 capsule by ity of Vitamin D3, 10:19: [place] 25 [facility] the Medical (000 morning. Branch unit) capsule metoprolol 2023-0 Yes 100mg Take 4 Univ ers tartrate 25 3-16 tablets by it y of mg tablet 10:19: mouth in [place] [address] the Medical morning Branch and 4 tablets in the evening. B Complex 3-0 Yes Take by Unive rs Vitamins 3-16 mouth. ity of tablet 10:19: [address] Branch Cholecalcif 3-0 Yes 1000U Take 1 Uni vers stevan, 3-16 capsule by ity of Vitamin D3, 10:19: [place] 25 [facility] the [facility] (000 morning. Branch unit) capsule metoprolol 3-0 Yes 100mg Take 4 Univ ers tartrate 25 3-16 tablets by it y of mg tablet 10:19: mouth in [place] [address] the Medical morning Branch and 4 tablets in the evening. B Complex 3-0 Yes Take by Unive rs Vitamins 3-16 mouth. ity of tablet 10:19: [address] Branch Cholecalcif 2023-0 Yes 1000U Take 1 Uni vers stevan, 3-16 capsule by ity of Vitamin D3, 10:19: [place] 25 [facility] the [facility] (000 morning. Branch unit) capsule metoprolol 2023-0 Yes 100mg Take 4 Univ ers tartrate 25 3-16 tablets by it y of mg tablet 10:19: mouth in [place] [address] the Medical morning Branch and 4 tablets in the evening. B Complex 3-0 Yes Take by Unive rs Vitamins 3-16 mouth. ity of tablet 10:19: [address] Branch Cholecalcif 2023-0 Yes 1000U Take 1 Uni vers stevan, 3-16 capsule by ity of Vitamin D3, 10:19: mouth [place] 25 mcg 39 the Medical (000 morning. Branch unit) capsule metoprolol 2023-0 Yes 100mg Take 4 Univ ers tartrate 25 3-16 tablets by it y of mg tablet 10:19: [place] 39 the Medical morning Branch and 4 tablets in the evening. B Complex 2023-0 Yes Take by Unive rs Vitamins 3-16 mouth. ity of tablet 10:19: [place] [address] Medical Branch Cholecalcif 2023-0 Yes 1000U Take 1 Uni vers stevan, 3-16 capsule by ity of Vitamin D3, 10:19: mouth in [place] 25 mcg 39 the Medical (000 morning. Branch unit) capsule metoprolol 2023-0 Yes 100mg Take 4 Univ ers tartrate 25 3-16 tablets by it y of mg tablet 10:19: [place] the Medical morning Branch and 4 tablets in the evening. B Complex 3-0 Yes Take by Unive rs Vitamins 3-16 mouth. ity of tablet 10:19: [address] Branch Cholecalcif 2023-0 Yes 1000U Take 1 Uni vers stevan, 3-16 capsule by ity of Vitamin D3, 10:19: mouth in [place] 25 mcg 39 the Medical ( morning. Branch unit) capsule metoprolol 2023-0 Yes 100mg Take 4 Univ ers tartrate 25 3-16 tablets by it y of mg tablet 10:19: [place] [facility] the Medical morning Branch and 4 tablets in the evening. B Complex 3-0 Yes Take by Unive rs Vitamins 3-16 mouth. ity of tablet 10:19: [address] Branch Cholecalcif 2023-0 Yes 1000U Take 1 Uni vers stevan, 3-16 capsule by ity of Vitamin D3, 10:19: mouth in [place] 25 mcg 39 the Medical ( morning. Branch unit) capsule metoprolol 2023-0 Yes 100mg Take 4 Univ ers tartrate 25 3-16 tablets by it y of mg tablet 10:19: [place] 39 the Medical morning Branch and 4 tablets in the evening. B Complex 2023-0 Yes Take by Unive rs Vitamins 3-16 mouth. ity of tablet 10:19: [place] [address] Medical Branch Cholecalcif 2023-0 Yes 1000U Take 1 Uni vers stevan, 3-16 capsule by ity of Vitamin D3, 10:19: mouth in [place] 25 mcg 39 the Medical (000 morning. Branch unit) capsule metoprolol 2022-0 Yes 100mg Take 4 Univ ers tartrate 25 3-16 tablets by it y of mg tablet 10:19: [place] 39 the Medical morning Branch and 4 tablets in the evening. B Complex 2022-0 Yes Take by Unive rs Vitamins 3-16 mouth. ity of tablet 10:19: [address] Cholecalcif 2022-0 Yes 1000U Take 1 Uni vers stevan, 3-16 capsule by ity of Vitamin D3, 10:19: mouth in [place] 25 mcg 39 the Medical ( morning. Branch unit) capsule B Complex 2022-0 Yes Take by Unive rs Vitamins 3-16 mouth. ity of tablet 10:19: [address] Cholecalcif 2022-0 Yes 1000U Take 1 Uni vers stevan, 3-16 capsule by ity of Vitamin D3, 10:19: mouth in [place] 25 mcg 39 the Medical ( morning. Branch unit) capsule B Complex 2022-0 Yes Take by Unive rs Vitamins 3-16 mouth. ity of tablet 10:19: [address] Cholecalcif 2022-0 Yes 1000U Take 1 Uni vers stevan, 3-16 capsule by ity of Vitamin D3, 10:19: mouth in [place] 25 mcg 39 the Medical ( morning. Branch unit) capsule B Complex 2022-0 Yes Take by Unive rs Vitamins 3-16 mouth. ity of tablet 10:19: [address] Cholecalcif 3-0 Yes 1000U Take 1 Uni vers stevan, 3-16 capsule by ity of Vitamin D3, 10:19: mouth in [place] 25 mcg 39 the Medical ( morning. Branch unit) capsule B Complex 3-0 Yes Take by Unive rs Vitamins 3-16 mouth. [facility] of tablet 10:19: [address] rivastigmin 3-0 2023- Yes [id number] 1{patch Apply 1 [facility] 4.6 mg/24 06-04- } Patch to [facility] of hour patch 00:00: 04:59 skin in [place] 00 :00 the Medical morning Branch for 30 days. rivastigmin 2022- Yes [id number] 1{patch Apply 1 [facility] e 4.6 mg/24 3- 04-07 } Patch to [facility] of hour patch 00:00: 04:59 skin in [place] 00 :00 the Medical morning Branch for 30 days. rivastigmin 2022- Yes [id number] 1{patch Apply 1 [facility] e 4.6 mg/24 3- 04-07 } Patch to [facility] hour patch 00:00: 04:59 skin in [place] 00 :00 the Medical morning Branch for 30 days. rivastigmin 2022- Yes [id number] 1{patch Apply 1 [facility] e 4.6 mg/24 3- 04-07 } Patch to [facility] hour patch 00:00: 04:59 skin in [place] 00 :00 the Medical morning Branch for 30 days. rivastigmin 2022- Yes [id number] 1{patch Apply 1 [facility] e 4.6 mg/24 3- 04-07 } Patch to [facility] hour patch 00:00: 04:59 skin in [place] 00 :00 the Medical morning Branch for 30 days. rivastigmin 2022- Yes [id number] 1{patch Apply 1 [facility] e 4.6 mg/24 3- 04-07 } Patch to [facility] hour patch 00:00: 04:59 skin in [place] 00 :00 the Medical morning Branch for 30 days. rivastigmin 2022- Yes [id number] 1{patch Apply 1 [facility] e 4.6 mg/24 3- 04-07 } Patch to [facility] of hour patch 00:00: 04:59 skin in [place] 00 :00 the Medical morning Branch for 30 days. rivastigmin 2022- Yes [id number] 1{patch Apply 1 [facility] e 4.6 mg/24 3- 04-07 } Patch to [facility] hour patch 00:00: 04:59 skin in [place] 00 :00 the Medical morning Branch for 30 days. rivastigmin 2022- Yes [id number] 1{patch Apply 1 [facility] e 4.6 mg/24 3- 04-07 } Patch to [facility] hour patch 00:00: 04:59 skin in [place] 00 :00 the Medical morning Branch for 30 days. rivastigmin 2022- Yes [id number] 1{patch Apply 1 [facility] e 4.6 mg/24 06-04 } Patch to [facility] hour patch 00:00: 04:59 skin in [place] 00 :00 the Medical morning Branch for 30 days. rivastigmin 2022- Yes [id number] 1{patch Apply 1 [facility] e 4.6 mg/24 06-04 } Patch to [facility] hour patch 00:00: 04:59 skin in [place] 00 :00 the Medical morning Branch for 30 days. donepeziL 2022- No [id number] 10mg Take 1 [facility] nivers 10 mg 06-04- tablet by [facility] tablet 00:00: 00:00 mouth at [place] 00 :00 bedtime. Medical Branch donepeziL 2022- No [id number] 10mg Take 1 [facility] nivers 10 mg 06-04 tablet by [facility] of tablet 00:00: 00:00 mouth at [place] 00 :00 bedtime. Medical Branch diphenhydrA 2022- No 25mg Take 25 mg [facility] MINE 25 mg 05-29 by mouth ity of capsule 16:57: 00:00 every 6 [place] 49 :00 (six) Medical hours as Branch needed for Allergies. haloperidoL 0 Yes [id number] .5mg Take 1 [facility] 0.5 mg 3-01 tablet by [facility] of tablet 00:00: mouth at [place] 00 bedtime as Medical needed for Branch Pain (scale 1-3) (AGITATION AND SUNDOWING) . potassium 2022-0 Yes [id number] 10meq Take 1 [facility] nivers chloride 10 3-01 tablet by ity of mEq CR 00:00: mouth in [place] tablet 00 the Medical morning. Branch haloperidoL 0 Yes [id number] .5mg Take 1 [facility] 0.5 mg 3-01 tablet by [facility] of tablet 00:00: mouth at [place] 00 bedtime as Medical needed for Branch Pain (scale 1-3) (AGITATION AND SUNDOWING) . potassium 2022-0 Yes [id number] 10meq Take 1 [facility] nivers chloride 10 3-01 tablet by ity of mEq CR 00:00: mouth in [place] tablet 00 the Medical morning. Branch haloperidoL 2023-0 Yes [id number] .5mg Take 1 [facility] 0.5 mg 3-01 tablet by [facility] of tablet 00:00: mouth at [place] 00 bedtime as Medical needed for Branch Pain (scale 1-3) (AGITATION AND SUNDOWING) . potassium 2023-0 Yes [id number] 10meq Take 1 [facility] nivers chloride 10 3-01 tablet by ity of mEq CR 00:00: mouth in [place] tablet 00 the Medical morning. Branch haloperidoL 2023-0 Yes [id number] .5mg Take 1 [facility] 0.5 mg 3-01 tablet by [facility] of tablet 00:00: mouth at [place] 00 bedtime as Medical needed for Branch Pain (scale 1-3) (AGITATION AND SUNDOWING) . potassium 2023-0 Yes [id number] 10meq Take 1 [facility] nivers chloride 10 3-01 tablet by ity of mEq CR 00:00: mouth in [place] tablet 00 the Medical morning. Branch haloperidoL 2023-0 Yes [id number] .5mg Take 1 [facility] 0.5 mg 3-01 tablet by [facility] of tablet 00:00: mouth at [place] 00 bedtime as Medical needed for Branch Pain (scale 1-3) (AGITATION AND SUNDOWING) . potassium 2023-0 Yes [id number] 10meq Take 1 [facility] nivers chloride 10 3-01 tablet by ity of mEq CR 00:00: mouth in [place] tablet 00 the Medical morning. Branch haloperidoL 2023-0 Yes [id number] .5mg Take 1 [facility] 0.5 mg 3-01 tablet by [facility] of tablet 00:00: mouth at [place] 00 bedtime as Medical needed for Branch Pain (scale 1-3) (AGITATION AND SUNDOWING) . potassium 2023-0 Yes [id number] 10meq Take 1 [facility] nivers chloride 10 3-01 tablet by ity of mEq CR 00:00: mouth in [place] tablet 00 the Medical morning. Branch haloperidoL 2023-0 Yes [id number] .5mg Take 1 [facility] 0.5 mg 3-01 tablet by [facility] of tablet 00:00: mouth at [place] 00 bedtime as Medical needed for Branch Pain (scale 1-3) (AGITATION AND SUNDOWING) . potassium 2023-0 Yes [id number] 10meq Take 1 [facility] nivers chloride 10 3-01 tablet by ity of mEq CR 00:00: mouth in [place] tablet 00 the Medical morning. Branch haloperidoL 2023-0 Yes [id number] .5mg Take 1 [facility] 0.5 mg 3-01 tablet by it[facility] of tablet 00:00: mouth at [place] 00 bedtime as Medical needed for Branch Pain (scale 1-3) (AGITATION AND SUNDOWING) . potassium 2023-0 Yes [id number] 10meq Take 1 [facility] nivers chloride 10 3-01 tablet by ity of mEq CR 00:00: mouth in [place] tablet 00 the Medical morning. Branch haloperidoL 2023-0 Yes [id number] .5mg Take 1 [facility] 0.5 mg 3-01 tablet by [facility] of tablet 00:00: mouth at [place] 00 bedtime as Medical needed for Branch Pain (scale 1-3) (AGITATION AND SUNDOWING) . potassium 2023-0 Yes [id number] 10meq Take 1 [facility] n[facility] chloride 10 3-01 tablet by ity of mEq CR 00:00: mouth in [place] tablet 00 the Medical morning. Branch haloperidoL 2023-0 Yes [id number] .5mg Take 1 [facility] 0.5 mg 3-01 tablet by ity of tablet 00:00: mouth at [place] 00 bedtime as Medical needed for Branch Pain (scale 1-3) (AGITATION AND SUNDOWING) . potassium 2023-0 Yes [id number] 10meq Take 1 [facility] nivers chloride 10 3-01 tablet by [facility] of mEq CR 00:00: mouth in [place] tablet 00 the Medical morning. Branch haloperidoL 2023-0 Yes [id number] .5mg Take 1 [facility] 0.5 mg 3-01 tablet by [facility] of tablet 00:00: mouth at [place] 00 bedtime as Medical needed for Branch Pain (scale 1-3) (AGITATION AND SUNDOWING) . potassium 2023-0 Yes [id number] 10meq Take 1 [facility] n[facility] chloride 10 3-01 tablet by [facility] of mEq CR 00:00: mouth in [place] tablet 00 the Medical morning. Branch haloperidoL 2023-0 Yes [id number] .5mg Take 1 [facility] 0.5 mg 3-01 tablet by [facility] of tablet 00:00: mouth at [place] 00 bedtime as Medical needed for Branch Pain (scale 1-3) (AGITATION AND SUNDOWING) . potassium 2023-0 Yes [id number] 10meq Take 1 [facility] n[facility] chloride 10 3-01 tablet by [facility]y of mEq CR 00:00: mouth in [place] tablet 00 the Medical morning. Branch haloperidoL 2023-0 Yes [id number] .5mg Take 1 [facility] 0.5 mg 3-01 tablet by [facility] of tablet 00:00: mouth at [place] 00 bedtime as Medical needed for Branch Pain (scale 1-3) (AGITATION AND SUNDOWING) . potassium 2023-0 Yes [id number] 10meq Take 1 [facility] n[facility] chloride 10 3-01 tablet by ity of mEq CR 00:00: mouth in [place] tablet 00 the Medical morning. Branch haloperidoL 2023-0 Yes [id number] .5mg Take 1 [facility] 0.5 mg 3-01 tablet by ity of tablet 00:00: mouth at [place] 00 bedtime as Medical needed for Branch Pain (scale 1-3) (AGITATION AND SUNDOWING) . potassium 2023-0 Yes [id number] 10meq Take 1 [facility] nivers chloride 10 3-01 tablet by ity of mEq CR 00:00: mouth in [place] tablet 00 the Medical morning. Branch haloperidoL 2023-0 Yes [id number] .5mg Take 1 [facility] 0.5 mg 3-01 tablet by it[facility] of tablet 00:00: mouth at [place] 00 bedtime as Medical needed for Branch Pain (scale 1-3) (AGITATION AND SUNDOWING) . potassium 2023-0 Yes [id number] 10meq Take 1 [facility] n[facility] chloride 10 3-01 tablet by ity of mEq CR 00:00: mouth in [place] tablet 00 the Medical morning. Branch haloperidoL 2023-0 Yes [id number] .5mg Take 1 [facility] 0.5 mg 3-01 tablet by [facility] of tablet 00:00: mouth at [place] 00 bedtime as Medical needed for Branch Pain (scale 1-3) (AGITATION AND SUNDOWING) . potassium 2023-0 Yes [id number] 10meq Take 1 [facility] chloride 10 3-01 tablet by it[facility] of mEq CR 00:00: mouth in [place] tablet 00 the Medical morning. Branch haloperidoL 2023-0 Yes [id number] .5mg Take 1 [facility] 0.5 mg 3-01 tablet by ity of tablet 00:00: mouth at [place] 00 bedtime as Medical needed for Branch Pain (scale 1-3) (AGITATION AND SUNDOWING) . potassium 2022-0 Yes [id number] 10meq Take 1 [facility] n[facility] chloride 10 3-01 tablet by ity of mEq CR 00:00: mouth in [place] tablet 00 the Medical morning. Branch haloperidoL 2022-0 Yes [id number] .5mg Take 1 [facility] 0.5 mg 3-01 tablet by ity of tablet 00:00: mouth at [place] 00 bedtime as Medical needed for Branch Pain (scale 1-3) (AGITATION AND SUNDOWING) . potassium 2022-0 Yes [id number] 10meq Take 1 [facility] n[facility] chloride 10 3-01 tablet by ity of mEq CR 00:00: mouth in [place] tablet 00 the Medical morning. Branch haloperidoL 2022-0 Yes [id number] .5mg Take 1 [facility] 0.5 mg 3-01 tablet by ity of tablet 00:00: mouth at [place] 00 bedtime as Medical needed for Branch Pain (scale 1-3) (AGITATION AND SUNDOWING) . potassium 2022-0 Yes [id number] 10meq Take 1 [facility] n[facility] chloride 10 3-01 tablet by ity of mEq CR 00:00: mouth in [place] tablet 00 the Medical morning. Branch haloperidoL 2022-0 Yes [id number] .5mg Take 1 [facility] 0.5 mg 3-01 tablet by ity of tablet 00:00: mouth at [place] 00 bedtime as Medical needed for Branch Pain (scale 1-3) (AGITATION AND SUNDOWING) . potassium 2022-0 Yes [id number] 10meq Take 1 [facility] n[facility] chloride 10 3-01 tablet by ity of mEq CR 00:00: mouth in [place] tablet 00 the Medical morning. Branch atorvastati 2022-0 2022- No 40mg Take 40 mg [facility] n (LIPITOR) 05-21 by mouth ity of 40 mg 15:41: 00:00 at [place] tablet 46 :00 bedtime. Medical Branch citalopram 2022-2022- No 20mg Take 20 mg [facility] 20 mg 05-21 by mouth ity of tablet 15:41: 00:00 in the [place] 46 :00 morning. Medical Branch donepeziL 5 2022- No 5mg Take 5 mg [facility] mg tablet 05-21 by mouth ity o f 15:41: 00:00 at [place] 46 :00 bedtime. Medical Branch atorvastati 2022- No 40mg Take 40 mg [facility] n (LIPITOR) 05-21 by mouth ity of 40 mg 15:41: 00:00 at [place] tablet 46 :00 bedtime. Medical Branch citalopram 2022- No 20mg Take 20 mg [facility] 20 mg 05-21 by mouth ity of tablet 15:41: 00:00 in the [place] 46 :00 morning. Medical Branch donepeziL 5 2022- No 5mg Take 5 mg [facility] mg tablet 05-21 by mouth ity o f 15:41: 00:00 at [place] 46 :00 bedtime. Medical Branch alfuzosin 2022- No 10mg Take 10 mg [facility] 10 mg 24 hr 05-21 by mouth ity of tablet 15:37: 00:00 at [place] 26 :00 bedtime. Medical Branch alfuzosin 2022- No 10mg Take 10 mg [facility] nivers 10 mg 24 hr 05-21 by mouth ity of tablet 15:37: 00:00 at [place] 26 :00 bedtime. Medical Branch nitrofurant 2022- No 100mg Take 100 [facility] oin 100 mg 05-21-21 mg by ity of capsule 15:32: 00:00 mouth at [place] 04 :00 bedtime. Medical Branch nitrofurant 2022- No 100mg Take 100 [facility] oin 100 mg 05-21-21 mg by ity of capsule 15:32: 00:00 mouth at [place] 04 :00 bedtime. Medical Branch pantoprazol 2022- No 40mg Take 40 mg [facility] e 40 mg EC 05-21 by mouth 2 it y of tablet 15:31: 00:00 (two) [place] 58 :00 times Medical daily. Branch pantoprazol 2022- No 40mg Take 40 mg [facility] e 40 mg EC 05-21- by mouth 2 it y of tablet 15:31: 00:00 (two) [place] 58 :00 times Medical daily. Branch carbidopa-l 2022-0 Yes [id number] TAKE 1 [facility] evodopa -21 TABLET BY ity of 25-100 mg 00:00: MOUTH FOUR [place] tablet 00 TIMES A Medical DAY Branch atorvastati Yes [id number] 40mg Take 1 [facility] n 40 mg 2-21 tablet by ity of tablet 00:00: mouth at [place] 00 bedtime. Medical Branch Diclofenac 2022-0 Yes [id number] Apply to [facility] Sodium 2-21 103 area(s) 4 ity of (VOLTAREN) 00:00: (four) [place] 1 % gel 00 times Medical daily. Branch Apply 4 g qid Lidocaine 5 2022-0 Yes [id number] Apply to [facility] % cream 2-21 103 area(s) 2 ity of 00:00: (two) [place] 00 times Medical daily as Branch needed for Pain (scale 4-6). Apply 5g to affected areas BID PRN mirtazapine 0 Yes [id number] 15mg Take 1 [facility] 15 mg 2-21 tablet by ity of tablet 00:00: mouth at [place] [address] bedtime. Medical Branch levothyroxi Yes [id number] 100ug Take 1 [facility] ne 100 mcg 2-21 tablet by ity of tablet 00:00: mouth [place] 00 every Medical morning. Branch citalopram Yes [id number] 20mg Take 1 [facility] 20 mg 2-21 tablet by ity of tablet 00:00: mouth in [place] 00 the Medical morning. Branch carbidopa-l 0 Yes [id number] TAKE 1 [facility] evodopa 2-21 TABLET BY ity of 25-100 mg 00:00: MOUTH FOUR [place] tablet 00 TIMES A Medical DAY Branch atorvastati 0 Yes [id number] 40mg Take 1 [facility] n 40 mg 2-21 tablet by ity of tablet 00:00: mouth at [place] 00 bedtime. Medical Branch Diclofenac 2022-0 Yes [id number] Apply to [facility] Sodium 2-21 103 area(s) 4 ity of (VOLTAREN) 00:00: (four) [place] 1 % gel 00 times Medical daily. Branch Apply 4 g qid Lidocaine 5 2022-0 Yes [id number] Apply to [facility] % cream 2-21 103 area(s) 2 ity of 00:00: (two) [place] 00 times Medical daily as Branch needed for Pain (scale 4-6). Apply 5g to affected areas BID PRN mirtazapine 2022-0 Yes [id number] 15mg Take 1 [facility] 15 mg 2-21 tablet by ity of tablet 00:00: mouth at [place] 00 bedtime. Medical Branch levothyroxi 2022- Yes [id number] 100ug Take 1 [facility] ne 100 mcg 2-21 tablet by ity of tablet 00:00: mouth [place] 00 every Medical morning. Branch citalopram 2022-0 Yes [id number] 20mg Take 1 [facility] 20 mg 2-21 tablet by ity of tablet 00:00: mouth in [place] 00 the Medical morning. Branch carbidopa-l 2022-0 Yes [id number] TAKE 1 [facility] evodopa 2-21 TABLET BY ity of 25-100 mg 00:00: MOUTH FOUR [place] tablet 00 TIMES A Medical DAY Branch atorvastati 2022-0 Yes [id number] 40mg Take 1 [facility] n 40 mg 2-21 tablet by ity of tablet 00:00: mouth at [place] [address] bedtime. Medical Branch Diclofenac 0 Yes [id number] Apply to [facility] Sodium 2-21 103 area(s) 4 ity of (VOLTAREN) 00:00: (four) [place] 1 % gel 00 times Medical daily. Branch Apply 4 g qid Lidocaine 5 Yes [id number] Apply to [facility] % cream 2-21 103 area(s) 2 ity of 00:00: (two) [place] 00 times Medical daily as Branch needed for Pain (scale 4-6). Apply 5g to affected areas BID PRN mirtazapine 2022-0 Yes [id number] 15mg Take 1 [facility] 15 mg 2-21 tablet by ity of tablet 00:00: mouth at [place] 00 bedtime. Medical Branch levothyroxi 2022- Yes [id number] 100ug Take 1 [facility] ne 100 mcg 2-21 tablet by ity of tablet 00:00: mouth [place] 00 every Medical morning. Branch citalopram 2022-0 Yes [id number] 20mg Take 1 [facility] 20 mg 2-21 tablet by ity of tablet 00:00: mouth in [place] 00 the Medical morning. Branch carbidopa-l 2022-0 Yes [id number] TAKE 1 [facility] evodopa 2-21 TABLET BY ity of 25-100 mg 00:00: MOUTH FOUR [place] tablet 00 TIMES A Medical DAY Branch atorvastati Yes [id number] 40mg Take 1 [facility] n 40 mg 2-21 tablet by ity of tablet 00:00: mouth at [place] 00 bedtime. Medical Branch Diclofenac Yes [id number] Apply to [facility] Sodium 2-21 103 area(s) 4 ity of (VOLTAREN) 00:00: (four) [place] 1 % gel 00 times Medical daily. Branch Apply 4 g qid Lidocaine 5 Yes [id number] Apply to [facility] % cream 2-21 103 area(s) 2 ity of 00:00: (two) [place] 00 times Medical daily as Branch needed for Pain (scale 4-6). Apply 5g to affected areas BID PRN mirtazapine Yes [id number] 15mg Take 1 [facility] 15 mg 2-21 tablet by ity of tablet 00:00: mouth at [place] [address] bedtime. Medical Branch levothyroxi Yes [id number] 100ug Take 1 [facility] ne 100 mcg 2-21 tablet by ity of tablet 00:00: mouth [place] 00 every Medical morning. Branch citalopram Yes [id number] 20mg Take 1 [facility] 20 mg 2-21 tablet by ity of tablet 00:00: mouth in [place] 00 the Medical morning. Branch carbidopa-l Yes [id number] TAKE 1 [facility] evodopa 2-21 TABLET BY ity of 25-100 mg 00:00: MOUTH FOUR [place] tablet 00 TIMES A Medical DAY Branch atorvastati Yes [id number] 40mg Take 1 [facility] n 40 mg 2-21 tablet by ity of tablet 00:00: mouth at [place] 00 bedtime. Medical Branch Diclofenac Yes [id number] Apply to [facility] Sodium 2-21 103 area(s) 4 ity of (VOLTAREN) 00:00: (four) [place] 1 % gel 00 times Medical daily. Branch Apply 4 g qid Lidocaine 5 Yes [id number] Apply to [facility] % cream 2-21 103 area(s) 2 ity of 00:00: (two) [place] 00 times Medical daily as Branch needed for Pain (scale 4-6). Apply 5g to affected areas BID PRN mirtazapine Yes [id number] 15mg Take 1 [facility] 15 mg 2-21 tablet by ity of tablet 00:00: mouth at [place] [address] bedtime. Medical Branch levothyroxi Yes [id number] 100ug Take 1 [facility] ne 100 mcg 2-21 tablet by ity of tablet 00:00: mouth [place] 00 every Medical morning. Branch citalopram 2022-0 Yes [id number] 20mg Take 1 [facility] 20 mg 2-21 tablet by ity of tablet 00:00: mouth in [place] 00 the Medical morning. Branch carbidopa-l 2022-0 Yes [id number] TAKE 1 [facility] evodopa 2-21 TABLET BY ity of 25-100 mg 00:00: MOUTH FOUR [place] tablet 00 TIMES A Medical DAY Branch atorvastati 2022-0 Yes [id number] 40mg Take 1 [facility] n 40 mg 2-21 tablet by ity of tablet 00:00: mouth at [place] [address] bedtime. Medical Branch Diclofenac Yes [id number] Apply to [facility] Sodium 2-21 103 area(s) 4 ity of (VOLTAREN) 00:00: (four) [place] 1 % gel 00 times Medical daily. Branch Apply 4 g qid Lidocaine 5 Yes [id number] Apply to [facility] % cream 2-21 103 area(s) 2 ity of 00:00: (two) [place] 00 times Medical daily as Branch needed for Pain (scale 4-6). Apply 5g to affected areas BID PRN mirtazapine Yes [id number] 15mg Take 1 [facility] 15 mg 2-21 tablet by ity of tablet 00:00: mouth at [place] [address] bedtime. Medical Branch levothyroxi 2022- Yes [id number] 100ug Take 1 [facility] ne 100 mcg 2-21 tablet by ity of tablet 00:00: mouth [place] 00 every Medical morning. Branch citalopram 2022-0 Yes [id number] 20mg Take 1 [facility] 20 mg 2-21 tablet by ity of tablet 00:00: mouth in [place] 00 the Medical morning. Branch carbidopa-l 2022-0 Yes [id number] TAKE 1 [facility] evodopa 2-21 TABLET BY ity of 25-100 mg 00:00: MOUTH FOUR [place] tablet 00 TIMES A Medical DAY Branch atorvastati 2022-0 Yes [id number] 40mg Take 1 [facility] n 40 mg 2-21 tablet by ity of tablet 00:00: mouth at [place] 00 bedtime. Medical Branch Diclofenac 2022-0 Yes [id number] Apply to [facility] Sodium 2-21 103 area(s) 4 ity of (VOLTAREN) 00:00: (four) [place] 1 % gel 00 times Medical daily. Branch Apply 4 g qid Lidocaine 5 2022-0 Yes [id number] Apply to [facility] % cream 2-21 103 area(s) 2 ity of 00:00: (two) [place] 00 times Medical daily as Branch needed for Pain (scale 4-6). Apply 5g to affected areas BID PRN mirtazapine 2022-0 Yes [id number] 15mg Take 1 [facility] 15 mg 2-21 tablet by ity of tablet 00:00: mouth at [place] [address] bedtime. Medical Branch levothyroxi 2022-0 Yes [id number] 100ug Take 1 [facility] ne 100 mcg 2-21 tablet by ity of tablet 00:00: mouth [place] 00 every Medical morning. Branch citalopram 2022-0 Yes [id number] 20mg Take 1 [facility] 20 mg 2-21 tablet by ity of tablet 00:00: mouth in [place] 00 the Medical morning. Branch carbidopa-l 2022-0 Yes [id number] TAKE 1 [facility] evodopa 2-21 TABLET BY ity of 25-100 mg 00:00: MOUTH FOUR [place] tablet 00 TIMES A Medical DAY Branch atorvastati 2022-0 Yes [id number] 40mg Take 1 [facility] n 40 mg 2-21 tablet by ity of tablet 00:00: mouth at [place] 00 bedtime. Medical Branch Diclofenac 2022-0 Yes [id number] Apply to [facility] Sodium 2-21 103 area(s) 4 ity of (VOLTAREN) 00:00: (four) [place] 1 % gel 00 times Medical daily. Branch Apply 4 g qid Lidocaine 5 2022-0 Yes [id number] Apply to [facility] % cream 2-21 103 area(s) 2 ity of 00:00: (two) [place] 00 times Medical daily as Branch needed for Pain (scale 4-6). Apply 5g to affected areas BID PRN mirtazapine 2022-0 Yes [id number] 15mg Take 1 [facility] 15 mg 2-21 tablet by ity of tablet 00:00: mouth at [place] [address] bedtime. Medical Branch levothyroxi Yes [id number] 100ug Take 1 [facility] ne 100 mcg 2-21 tablet by ity of tablet 00:00: mouth [place] every Medical morning. Branch citalopram Yes [id number] 20mg Take 1 [facility] 20 mg 2-21 tablet by ity of tablet 00:00: mouth in [place] 00 the Medical morning. Branch carbidopa-l 2022-0 Yes [id number] TAKE 1 [facility] evodopa 2-21 TABLET BY ity of 25-100 mg 00:00: MOUTH FOUR [place] tablet 00 TIMES A Medical DAY Branch atorvastati Yes [id number] 40mg Take 1 [facility] n 40 mg 2-21 tablet by ity of tablet 00:00: mouth at [place] [address] bedtime. Medical Branch Diclofenac Yes [id number] Apply to [facility] Sodium 2-21 103 area(s) 4 ity of (VOLTAREN) 00:00: (four) [place] 1 % gel 00 times Medical daily. Branch Apply 4 g qid Lidocaine 5 Yes [id number] Apply to [facility] % cream 2-21 103 area(s) 2 ity of 00:00: (two) [place] 00 times Medical daily as Branch needed for Pain (scale 4-6). Apply 5g to affected areas BID PRN mirtazapine Yes [id number] 15mg Take 1 [facility] 15 mg 2-21 tablet by ity of tablet 00:00: mouth at [place] [address] bedtime. Medical Branch levothyroxi 2022- Yes [id number] 100ug Take 1 [facility] ne 100 mcg 2-21 tablet by ity of tablet 00:00: mouth [place] [address] every Medical morning. Branch citalopram Yes [id number] 20mg Take 1 [facility] 20 mg 2-21 tablet by ity of tablet 00:00: mouth in [place] 00 the Medical morning. Branch carbidopa-l 2022-0 Yes [id number] TAKE 1 [facility] evodopa 2-21 TABLET BY ity of 25-100 mg 00:00: MOUTH FOUR [place] tablet 00 TIMES A Medical DAY Branch atorvastati 2022-0 Yes [id number] 40mg Take 1 [facility] n 40 mg 2-21 tablet by ity of tablet 00:00: mouth at [place] 00 bedtime. Medical Branch Diclofenac 2022-0 Yes [id number] Apply to [facility] Sodium 2-21 103 area(s) 4 ity of (VOLTAREN) 00:00: (four) [place] 1 % gel 00 times Medical daily. Branch Apply 4 g qid Lidocaine 5 2022-0 Yes [id number] Apply to [facility] % cream 2-21 103 area(s) 2 ity of 00:00: (two) [place] 00 times Medical daily as Branch needed for Pain (scale 4-6). Apply 5g to affected areas BID PRN mirtazapine 2022-0 Yes [id number] 15mg Take 1 [facility] 15 mg 2-21 tablet by ity of tablet 00:00: mouth at [place] [address] bedtime. Medical Branch levothyroxi 2022-0 Yes [id number] 100ug Take 1 [facility] ne 100 mcg 2-21 tablet by ity of tablet 00:00: mouth [place] 00 every Medical morning. Branch citalopram 2022-0 Yes [id number] 20mg Take 1 [facility] 20 mg 2-21 tablet by ity of tablet 00:00: mouth in [place] 00 the Medical morning. Branch carbidopa-l 2022-0 Yes [id number] TAKE 1 [facility] evodopa 2-21 TABLET BY ity of 25-100 mg 00:00: MOUTH FOUR [place] tablet 00 TIMES A Medical DAY Branch atorvastati 2022-0 Yes [id number] 40mg Take 1 [facility] n 40 mg 2-21 tablet by ity of tablet 00:00: mouth at [place] [address] bedtime. Medical Branch Diclofenac 2022-0 Yes [id number] Apply to [facility] Sodium 2-21 103 area(s) 4 ity of (VOLTAREN) 00:00: (four) [place] 1 % gel 00 times Medical daily. Branch Apply 4 g qid Lidocaine 5 2022-0 Yes [id number] Apply to [facility] % cream 2-21 103 area(s) 2 ity of 00:00: (two) [place] 00 times Medical daily as Branch needed for Pain (scale 4-6). Apply 5g to affected areas BID PRN mirtazapine 2022-0 Yes [id number] 15mg Take 1 [facility] 15 mg 2-21 tablet by ity of tablet 00:00: mouth at [place] [address] bedtime. Medical Branch levothyroxi 2022-0 Yes [id number] 100ug Take 1 [facility] ne 100 mcg 2-21 tablet by ity of tablet 00:00: mouth [place] 00 every Medical morning. Branch donepeziL 5 Yes [id number] 5mg Take 1 [facility] mg tablet 2-21 tablet by ity o f 00:00: mouth at [place] [address] bedtime. Medical Branch citalopram Yes [id number] 20mg Take 1 [facility] 20 mg 2-21 tablet by ity of tablet 00:00: mouth in [place] 00 the Medical morning. Branch carbidopa-l Yes [id number] TAKE 1 [facility] evodopa 2-21 TABLET BY ity of 25-100 mg 00:00: MOUTH FOUR [place] tablet 00 TIMES A Medical DAY Branch atorvastati Yes [id number] 40mg Take 1 [facility] n 40 mg 2-21 tablet by ity of tablet 00:00: mouth at [place] [address] bedtime. Medical Branch Diclofenac Yes [id number] Apply to [facility] Sodium 2-21 103 area(s) 4 ity of (VOLTAREN) 00:00: (four) [place] 1 % gel 00 times Medical daily. Branch Apply 4 g qid Lidocaine 5 Yes [id number] Apply to [facility] % cream 2-21 103 area(s) 2 ity of 00:00: (two) [place] 00 times Medical daily as Branch needed for Pain (scale 4-6). Apply 5g to affected areas BID PRN mirtazapine Yes [id number] 15mg Take 1 [facility] 15 mg 2-21 tablet by [facility] of tablet 00:00: mouth at [place] [address] bedtime. Medical Branch levothyroxi Yes [id number] 100ug Take 1 [facility] ne 100 mcg 2-21 tablet by [facility] of tablet 00:00: mouth [place] 00 every Medical morning. Branch donepeziL 5 Yes [id number] 5mg Take 1 [facility] mg tablet 2-21 tablet by ity o f 00:00: mouth at [place] [address] bedtime. Medical Branch citalopram Yes [id number] 20mg Take 1 [facility] 20 mg 2-21 tablet by [facility] of tablet 00:00: mouth in [place] 00 the Medical morning. Branch carbidopa-l Yes [id number] TAKE 1 [facility] evodopa 2-21 TABLET BY ity of 25-100 mg 00:00: MOUTH FOUR [place] tablet 00 TIMES A Medical DAY Branch atorvastati Yes [id number] 40mg Take 1 [facility] n 40 mg 2-21 tablet by [facility] of tablet 00:00: mouth at [place] 00 bedtime. Medical Branch Diclofenac Yes [id number] Apply to [facility] Sodium 2-21 103 area(s) 4 ity of (VOLTAREN) 00:00: (four) [place] 1 % gel 00 times Medical daily. Branch Apply 4 g qid Lidocaine 5 Yes [id number] Apply to [facility] % cream 2-21 103 area(s) 2 ity of 00:00: (two) [place] 00 times Medical daily as Branch needed for Pain (scale 4-6). Apply 5g to affected areas BID PRN mirtazapine Yes [id number] 15mg Take 1 [facility] 15 mg 2-21 tablet by [facility] of tablet 00:00: mouth at [place] 00 bedtime. Medical Branch levothyroxi Yes [id number] 100ug Take 1 [facility] ne 100 mcg 2-21 tablet by [facility] of tablet 00:00: mouth [place] 00 every Medical morning. Branch donepeziL 5 Yes [id number] 5mg Take 1 [facility] mg tablet 2-21 tablet by ity o f 00:00: mouth at [place] 00 bedtime. Medical Branch citalopram Yes [id number] 20mg Take 1 [facility] 20 mg 2-21 tablet by [facility] of tablet 00:00: mouth in [place] 00 the Medical morning. Branch carbidopa-l Yes [id number] TAKE 1 [facility] evodopa 2-21 TABLET BY ity of 25-100 mg 00:00: MOUTH FOUR [place] tablet 00 TIMES A Medical DAY Branch atorvastati Yes [id number] 40mg Take 1 [facility] n 40 mg 2-21 tablet by [facility] of tablet 00:00: mouth at [place] 00 bedtime. Medical Branch Diclofenac Yes [id number] Apply to [facility] Sodium 2-21 103 area(s) 4 ity of (VOLTAREN) 00:00: (four) [place] 1 % gel 00 times Medical daily. Branch Apply 4 g qid Lidocaine 5 Yes [id number] Apply to [facility] % cream 2-21 103 area(s) 2 ity of 00:00: (two) [place] 00 times Medical daily as Branch needed for Pain (scale 4-6). Apply 5g to affected areas BID PRN mirtazapine Yes [id number] 15mg Take 1 [facility] 15 mg 2-21 tablet by [facility] of tablet 00:00: mouth at [place] 00 bedtime. Medical Branch levothyroxi Yes [id number] 100ug Take 1 [facility] ne 100 mcg 2-21 tablet by [facility] of tablet 00:00: mouth [place] 00 every Medical morning. Branch donepeziL 5 Yes [id number] 5mg Take 1 [facility] mg tablet 2-21 tablet by ity o f 00:00: mouth at [place] 00 bedtime. Medical Branch citalopram Yes [id number] 20mg Take 1 [facility] 20 mg 2-21 tablet by [facility] of tablet 00:00: mouth in [place] 00 the Medical morning. Branch carbidopa-l Yes [id number] TAKE 1 [facility] evodopa 2-21 TABLET BY ity of 25-100 mg 00:00: MOUTH FOUR [place] tablet 00 TIMES A Medical DAY Branch atorvastati Yes [id number] 40mg Take 1 [facility] n 40 mg 2-21 tablet by [facility] of tablet 00:00: mouth at [place] 00 bedtime. Medical Branch Diclofenac Yes [id number] Apply to [facility] Sodium 2-21 103 area(s) 4 ity of (VOLTAREN) 00:00: (four) [place] 1 % gel 00 times Medical daily. Branch Apply 4 g qid Lidocaine 5 Yes [id number] Apply to [facility] % cream 2-21 103 area(s) 2 ity of 00:00: (two) [place] 00 times Medical daily as Branch needed for Pain (scale 4-6). Apply 5g to affected areas BID PRN mirtazapine Yes [id number] 15mg Take 1 [facility] 15 mg 2-21 tablet by [facility] of tablet 00:00: mouth at [place] 00 bedtime. Medical Branch levothyroxi Yes [id number] 100ug Take 1 [facility] ne 100 mcg 2-21 tablet by [facility] of tablet 00:00: mouth [place] 00 every Medical morning. Branch donepeziL 5 Yes [id number] 5mg Take 1 [facility] mg tablet 2-21 tablet by ity o f 00:00: mouth at [place] [address] bedtime. Medical Branch citalopram Yes [id number] 20mg Take 1 [facility] 20 mg 2-21 tablet by [facility] of tablet 00:00: mouth in [place] 00 the Medical morning. Branch carbidopa-l Yes [id number] TAKE 1 [facility] evodopa 2-21 TABLET BY ity of 25-100 mg 00:00: MOUTH FOUR [place] tablet 00 TIMES A Medical DAY Branch atorvastati Yes [id number] 40mg Take 1 [facility] n 40 mg 2-21 tablet by [facility] of tablet 00:00: mouth at [place] [address] bedtime. Medical Branch Diclofenac Yes [id number] Apply to [facility] Sodium 2-21 103 area(s) 4 ity of (VOLTAREN) 00:00: (four) [place] 1 % gel 00 times Medical daily. Branch Apply 4 g qid Lidocaine Yes [id number] Apply to [facility] % cream 2-21 103 area(s) 2 ity of 00:00: (two) [place] 00 times Medical daily as Branch needed for Pain (scale 4-6). Apply 5g to affected areas BID PRN mirtazapine Yes [id number] 15mg Take 1 [facility] 15 mg 2-21 tablet by [facility] of tablet 00:00: mouth at [place] [address] bedtime. Medical Branch levothyroxi Yes [id number] 100ug Take 1 [facility] ne 100 mcg 2-21 tablet by [facility] of tablet 00:00: mouth [place] [address] every Medical morning. Branch donepeziL 5 Yes [id number] 5mg Take 1 [facility] mg tablet 2-21 tablet by ity o f 00:00: mouth at [place] [address] bedtime. Medical Branch citalopram Yes [id number] 20mg Take 1 [facility] 20 mg 2-21 tablet by [facility] of tablet 00:00: mouth in [place] 00 the Medical morning. Branch carbidopa-l 2022-0 Yes [id number] TAKE 1 [facility] evodopa 2-21 TABLET BY ity of 25-100 mg 00:00: MOUTH FOUR [place] tablet 00 TIMES A Medical DAY Branch atorvastati Yes [id number] 40mg Take 1 [facility] n 40 mg 2-21 tablet by [facility] of tablet 00:00: mouth at [place] 00 bedtime. Medical Branch Diclofenac Yes [id number] Apply to [facility] Sodium 2-21 103 area(s) 4 ity of (VOLTAREN) 00:00: (four) [place] 1 % gel 00 times Medical daily. Branch Apply 4 g qid Lidocaine 5 Yes [id number] Apply to [facility] % cream 2-21 103 area(s) 2 ity of 00:00: (two) [place] 00 times Medical daily as Branch needed for Pain (scale 4-6). Apply 5g to affected areas BID PRN mirtazapine Yes [id number] 15mg Take 1 [facility] 15 mg 2-21 tablet by [facility]y of tablet 00:00: mouth at [place] 00 bedtime. Medical Branch levothyroxi Yes [id number] 100ug Take 1 [facility] ne 100 mcg 2-21 tablet by [facility]y of tablet 00:00: mouth [place] 00 every Medical morning. Branch donepeziL 5 Yes [id number] 5mg Take 1 [facility] mg tablet 2-21 tablet by ity o f 00:00: mouth at [place] 00 bedtime. Medical Branch citalopram Yes [id number] 20mg Take 1 [facility] 20 mg 2-21 tablet by [facility] of tablet 00:00: mouth in [place] 00 the Medical morning. Branch carbidopa-l Yes [id number] TAKE 1 [facility] evodopa 2-21 TABLET BY ity of 25-100 mg 00:00: MOUTH FOUR [place] tablet 00 TIMES A Medical DAY Branch atorvastati Yes [id number] 40mg Take 1 [facility] n 40 mg 2-21 tablet by it[facility] of tablet 00:00: mouth at [place] 00 bedtime. Medical Branch Diclofenac Yes [id number] Apply to [facility] Sodium 2-21 103 area(s) 4 ity of (VOLTAREN) 00:00: (four) [place] 1 % gel 00 times Medical daily. Branch Apply 4 g qid Lidocaine 5 Yes [id number] Apply to [facility] % cream 2-21 103 area(s) 2 ity of 00:00: (two) [place] 00 times Medical daily as Branch needed for Pain (scale 4-6). Apply 5g to affected areas BID PRN mirtazapine Yes [id number] 15mg Take 1 [facility] 15 mg 2-21 tablet by [facility] of tablet 00:00: mouth at [place] 00 bedtime. Medical Branch levothyroxi Yes [id number] 100ug Take 1 [facility] ne 100 mcg 2-21 tablet by [facility] of tablet 00:00: mouth [place] 00 every Medical morning. Branch donepeziL 5 Yes [id number] 5mg Take 1 [facility] mg tablet 2-21 tablet by ity o f 00:00: mouth at [place] 00 bedtime. Medical Branch citalopram Yes [id number] 20mg Take 1 [facility] 20 mg 2-21 tablet by [facility] of tablet 00:00: mouth in [place] 00 the Medical morning. Branch carbidopa-l Yes [id number] TAKE 1 [facility] evodopa 2-21 TABLET BY ity of 25-100 mg 00:00: MOUTH FOUR [place] tablet 00 TIMES A Medical DAY Branch atorvastati Yes [id number] 40mg Take 1 [facility] n 40 mg 2-21 tablet by [facility] of tablet 00:00: mouth at [place] 00 bedtime. Medical Branch Diclofenac Yes [id number] Apply to [facility] Sodium 2-21 103 area(s) 4 ity of (VOLTAREN) 00:00: (four) [place] 1 % gel 00 times Medical daily. Branch Apply 4 g qid Lidocaine Yes [id number] Apply to [facility] % cream 2-21 103 area(s) 2 ity of 00:00: (two) [place] 00 times Medical daily as Branch needed for Pain (scale 4-6). Apply 5g to affected areas BID PRN mirtazapine Yes [id number] 15mg Take 1 [facility] 15 mg 2-21 tablet by [facility]y of tablet 00:00: mouth at [place] [address] bedtime. Medical Branch levothyroxi Yes [id number] 100ug Take 1 [facility] ne 100 mcg 2-21 tablet by [facility] of tablet 00:00: mouth [place] 00 every Medical morning. Branch donepeziL 5 Yes [id number] 5mg Take 1 [facility] mg tablet 2-21 tablet by ity o f 00:00: mouth at [place] 00 bedtime. Medical Branch citalopram Yes [id number] 20mg Take 1 [facility] 20 mg 2-21 tablet by ity of tablet 00:00: mouth in [place] 00 the Medical morning. Branch carbidopa-l Yes [id number] TAKE 1 [facility] evodopa 2-21 TABLET BY ity of 25-100 mg 00:00: MOUTH FOUR [place] tablet 00 TIMES A Medical DAY Branch atorvastati Yes [id number] 40mg Take 1 [facility] n 40 mg 2-21 tablet by it[facility] of tablet 00:00: mouth at [place] [address] bedtime. Medical Branch Diclofenac Yes [id number] Apply to [facility] Sodium 2-21 103 area(s) 4 ity of (VOLTAREN) 00:00: (four) [place] 1 % gel 00 times Medical daily. Branch Apply 4 g qid Lidocaine Yes [id number] Apply to [facility] % cream 2-21 103 area(s) 2 ity of 00:00: (two) [place] 00 times Medical daily as Branch needed for Pain (scale 4-6). Apply 5g to affected areas BID PRN mirtazapine Yes [id number] 15mg Take 1 [facility] 15 mg 2-21 tablet by ity of tablet 00:00: mouth at [place] [address] bedtime. Medical Branch levothyroxi Yes [id number] 100ug Take 1 [facility] ne 100 mcg 2-21 tablet by it[facility] of tablet 00:00: mouth [place] 00 every Medical morning. Branch donepeziL Yes [id number] 5mg Take 1 [facility] mg tablet 2-21 tablet by ity o f 00:00: mouth at [place] 00 bedtime. Medical Branch citalopram Yes [id number] 20mg Take 1 [facility] 20 mg 2-21 tablet by ity of tablet 00:00: mouth in [place] 00 the Medical morning. Branch carbidopa-l 2022- Yes [id number] TAKE 1 [facility] evodopa 2-21 TABLET BY ity of 25-100 mg 00:00: MOUTH FOUR [place] tablet 00 TIMES A Medical DAY Branch atorvastati Yes [id number] 40mg Take 1 [facility] n 40 mg 2-21 tablet by ity of tablet 00:00: mouth at [place] 00 bedtime. Medical Branch Diclofenac Yes [id number] Apply to [facility] Sodium 2-21 103 area(s) 4 ity of (VOLTAREN) 00:00: (four) [place] 1 % gel 00 times Medical daily. Branch Apply 4 g qid Lidocaine 5 Yes [id number] Apply to [facility] % cream 2-21 103 area(s) 2 ity of 00:00: (two) [place] 00 times Medical daily as Branch needed for Pain (scale 4-6). Apply 5g to affected areas BID PRN mirtazapine Yes [id number] 15mg Take 1 [facility] 15 mg 2-21 tablet by ity of tablet 00:00: mouth at [place] 00 bedtime. Medical Branch levothyroxi Yes [id number] 100ug Take 1 [facility] ne 100 mcg 2-21 tablet by ity of tablet 00:00: mouth [place] 00 every Medical morning. Branch donepeziL 5 Yes [id number] 5mg Take 1 [facility] mg tablet 2-21 tablet by ity o f 00:00: mouth at [place] 00 bedtime. Medical Branch citalopram Yes [id number] 20mg Take 1 [facility] 20 mg 2-21 tablet by ity of tablet 00:00: mouth in [place] 00 the Medical morning. Branch carbidopa-l 0 Yes [id number] TAKE 1 [facility] evodopa 2-21 TABLET BY ity of 25-100 mg 00:00: MOUTH FOUR [place] tablet 00 TIMES A Medical DAY Branch atorvastati Yes [id number] 40mg Take 1 [facility] n 40 mg 2-21 tablet by ity of tablet 00:00: mouth at [place] 00 bedtime. Medical Branch Diclofenac 2022-0 Yes [id number] Apply to [facility] Sodium 2-21 103 area(s) 4 ity of (VOLTAREN) 00:00: (four) [place] 1 % gel 00 times Medical daily. Branch Apply 4 g qid Lidocaine 5 2022-0 Yes [id number] Apply to [facility] % cream 2-21 103 area(s) 2 ity of 00:00: (two) [place] 00 times Medical daily as Branch needed for Pain (scale 4-6). Apply 5g to affected areas BID PRN mirtazapine Yes [id number] 15mg Take 1 [facility] 15 mg 2-21 tablet by ity of tablet 00:00: mouth at [place] [address] bedtime. Medical Branch levothyroxi 0 Yes [id number] 100ug Take 1 [facility] ne 100 mcg 2-21 tablet by ity of tablet 00:00: mouth [place] 00 every Medical morning. Branch citalopram 0 Yes [id number] 20mg Take 1 [facility] 20 mg 2-21 tablet by ity of tablet 00:00: mouth in [place] 00 the Medical morning. Branch carbidopa-l 2022- Yes [id number] TAKE 1 [facility] evodopa 2-21 TABLET BY ity of 25-100 mg 00:00: MOUTH FOUR [place] tablet 00 TIMES A Medical DAY Branch atorvastati Yes [id number] 40mg Take 1 [facility] n 40 mg 2-21 tablet by it[facility] of tablet 00:00: mouth at [place] [address] bedtime. Medical Branch Diclofenac Yes [id number] Apply to [facility] Sodium 2-21 103 area(s) 4 ity of (VOLTAREN) 00:00: (four) [place] 1 % gel 00 times Medical daily. Branch Apply 4 g qid Lidocaine 5 Yes [id number] Apply to [facility] % cream 2-21 103 area(s) 2 ity of 00:00: (two) [place] 00 times Medical daily as Branch needed for Pain (scale 4-6). Apply 5g to affected areas BID PRN mirtazapine Yes [id number] 15mg Take 1 [facility] 15 mg 2-21 tablet by ity of tablet 00:00: mouth at [place] [address] bedtime. Medical Branch levothyroxi 2022- Yes [id number] 100ug Take 1 [facility] ne 100 mcg 2-21 tablet by it[facility] of tablet 00:00: mouth [place] [address] every Medical morning. Branch citalopram 2022-0 Yes [id number] 20mg Take 1 [facility] 20 mg 2-21 tablet by [facility] of tablet 00:00: mouth in [place] 00 the Medical morning. Branch carbidopa-l 2022-0 Yes [id number] TAKE 1 [facility] evodopa 2-21 TABLET BY ity of 25-100 mg 00:00: MOUTH FOUR [place] tablet 00 TIMES A Medical DAY Branch atorvastati Yes [id number] 40mg Take 1 [facility] n 40 mg 2-21 tablet by ity of tablet 00:00: mouth at [place] [address] bedtime. Medical Branch Diclofenac Yes [id number] Apply to [facility] Sodium 2-21 103 area(s) 4 ity of (VOLTAREN) 00:00: (four) [place] 1 % gel 00 times Medical daily. Branch Apply 4 g qid Lidocaine 5 Yes [id number] Apply to [facility] % cream 2-21 103 area(s) 2 ity of 00:00: (two) [place] 00 times Medical daily as Branch needed for Pain (scale 4-6). Apply 5g to affected areas BID PRN mirtazapine Yes [id number] 15mg Take 1 [facility] 15 mg 2-21 tablet by [facility]y of tablet 00:00: mouth at [place] [address] bedtime. Medical Branch levothyroxi 0 Yes [id number] 100ug Take 1 [facility] ne 100 mcg 2-21 tablet by ity of tablet 00:00: mouth [place] 00 every Medical morning. Branch citalopram Yes [id number] 20mg Take 1 [facility] 20 mg 2-21 tablet by ity of tablet 00:00: mouth in [place] 00 the Medical morning. Branch carbidopa-l 0 Yes [id number] TAKE 1 [facility] evodopa 2-21 TABLET BY ity of 25-100 mg 00:00: MOUTH FOUR [place] tablet 00 TIMES A Medical DAY Branch atorvastati Yes [id number] 40mg Take 1 [facility] n 40 mg 2-21 tablet by ity of tablet 00:00: mouth at [place] [address] bedtime. Medical Branch Diclofenac 2022- Yes [id number] Apply to [facility] Sodium 2-21 103 area(s) 4 ity of (VOLTAREN) 00:00: (four) [place] 1 % gel 00 times Medical daily. Branch Apply 4 g qid Lidocaine 5 2022-0 Yes [id number] Apply to [facility] % cream 2-21 103 area(s) 2 ity of 00:00: (two) [place] 00 times Medical daily as Branch needed for Pain (scale 4-6). Apply 5g to affected areas BID PRN mirtazapine 2022- Yes [id number] 15mg Take 1 [facility] 15 mg 2-21 tablet by ity of tablet 00:00: mouth at [place] [address] bedtime. Medical Branch levothyroxi Yes [id number] 100ug Take 1 [facility] ne 100 mcg 2-21 tablet by ity of tablet 00:00: mouth [place] 00 every Medical morning. Branch citalopram 2022-0 Yes [id number] 20mg Take 1 [facility] 20 mg 2-21 tablet by ity of tablet 00:00: mouth in [place] 00 the Medical morning. Branch carbidopa-l 2022-0 Yes [id number] TAKE 1 [facility] evodopa 2-21 TABLET BY ity of 25-100 mg 00:00: MOUTH FOUR [place] tablet 00 TIMES A Medical DAY Branch atorvastati Yes [id number] 40mg Take 1 [facility] n 40 mg 2-21 tablet by ity of tablet 00:00: mouth at [place] [address] bedtime. Medical Branch Diclofenac Yes [id number] Apply to [facility] Sodium 2-21 103 area(s) 4 ity of (VOLTAREN) 00:00: (four) [place] 1 % gel 00 times Medical daily. Branch Apply 4 g qid Lidocaine 5 Yes [id number] Apply to [facility] % cream 2-21 103 area(s) 2 ity of 00:00: (two) [place] 00 times Medical daily as Branch needed for Pain (scale 4-6). Apply 5g to affected areas BID PRN mirtazapine Yes [id number] 15mg Take 1 [facility] 15 mg 2-21 tablet by ity of tablet 00:00: mouth at [place] [address] bedtime. Medical Branch levothyroxi 2022- Yes [id number] 100ug Take 1 [facility] ne 100 mcg 2-21 tablet by ity of tablet 00:00: mouth [place] 00 every Medical morning. Branch citalopram 2022-0 Yes [id number] 20mg Take 1 [facility] 20 mg 2-21 tablet by [facility]y of tablet 00:00: mouth in [place] 00 the Medical morning. Branch carbidopa-l 2022-0 Yes [id number] TAKE 1 [facility] evodopa 2-21 TABLET BY ity of 25-100 mg 00:00: MOUTH FOUR [place] tablet 00 TIMES A Medical DAY Branch atorvastati Yes [id number] 40mg Take 1 [facility] n 40 mg 2-21 tablet by ity of tablet 00:00: mouth at [place] 00 bedtime. Medical Branch Diclofenac Yes [id number] Apply to [facility] Sodium 2-21 103 area(s) 4 ity of (VOLTAREN) 00:00: (four) [place] 1 % gel 00 times Medical daily. Branch Apply 4 g qid Lidocaine 5 2022-0 Yes [id number] Apply to [facility] % cream 2-21 103 area(s) 2 ity of 00:00: (two) [place] 00 times Medical daily as Branch needed for Pain (scale 4-6). Apply 5g to affected areas BID PRN mirtazapine 2022-0 Yes [id number] 15mg Take 1 [facility] 15 mg 2-21 tablet by ity of tablet 00:00: mouth at [place] [address] bedtime. Medical Branch levothyroxi 2022- Yes [id number] 100ug Take 1 [facility] ne 100 mcg 2-21 tablet by ity of tablet 00:00: mouth [place] 00 every Medical morning. Branch citalopram Yes [id number] 20mg Take 1 [facility] 20 mg 2-21 tablet by ity of tablet 00:00: mouth in [place] 00 the Medical morning. Branch carbidopa-l 0 Yes [id number] TAKE 1 [facility] evodopa 2-21 TABLET BY ity of 25-100 mg 00:00: MOUTH FOUR [place] tablet 00 TIMES A Medical DAY Branch atorvastati 2022-0 Yes [id number] 40mg Take 1 [facility] n 40 mg 2-21 tablet by ity of tablet 00:00: mouth at [place] 00 bedtime. Medical Branch Diclofenac 2022- Yes [id number] Apply to [facility] Sodium 2-21 103 area(s) 4 ity of (VOLTAREN) 00:00: (four) [place] 1 % gel 00 times Medical daily. Branch Apply 4 g qid Lidocaine 5 2022-0 Yes [id number] Apply to [facility] % cream 2-21 103 area(s) 2 ity of 00:00: (two) [place] 00 times Medical daily as Branch needed for Pain (scale 4-6). Apply 5g to affected areas BID PRN mirtazapine 2022-0 Yes [id number] 15mg Take 1 [facility] 15 mg 2-21 tablet by ity of tablet 00:00: mouth at [place] [address] bedtime. Medical Branch levothyroxi 2022- Yes [id number] 100ug Take 1 [facility] ne 100 mcg 2-21 tablet by ity of tablet 00:00: mouth [place] 00 every Medical morning. Branch citalopram 2022-0 Yes [id number] 20mg Take 1 [facility] 20 mg 2-21 tablet by ity of tablet 00:00: mouth in [place] 00 the Medical morning. Branch carbidopa-l 2022-0 Yes [id number] TAKE 1 [facility] evodopa 2-21 TABLET BY ity of 25-100 mg 00:00: MOUTH FOUR [place] tablet 00 TIMES A Medical DAY Branch atorvastati 2022- Yes [id number] 40mg Take 1 [facility] n 40 mg 2-21 tablet by ity of tablet 00:00: mouth at [place] [address] bedtime. Medical Branch Diclofenac Yes [id number] Apply to [facility] Sodium 2-21 103 area(s) 4 ity of (VOLTAREN) 00:00: (four) [place] 1 % gel 00 times Medical daily. Branch Apply 4 g qid Lidocaine 5 Yes [id number] Apply to [facility] % cream 2-21 103 area(s) 2 ity of 00:00: (two) [place] 00 times Medical daily as Branch needed for Pain (scale 4-6). Apply 5g to affected areas BID PRN mirtazapine Yes [id number] 15mg Take 1 [facility] 15 mg 2-21 tablet by ity of tablet 00:00: mouth at [place] [address] bedtime. Medical Branch levothyroxi 2022- Yes [id number] 100ug Take 1 [facility] ne 100 mcg 2-21 tablet by ity of tablet 00:00: mouth [place] [address] every Medical morning. Branch citalopram 2022-0 Yes [id number] 20mg Take 1 [facility] 20 mg 2-21 tablet by ity of tablet 00:00: mouth in [place] 00 the Medical morning. Branch carbidopa-l 2022-0 Yes [id number] TAKE 1 [facility] evodopa 2-21 TABLET BY ity of 25-100 mg 00:00: MOUTH FOUR [place] tablet 00 TIMES A Medical DAY Branch atorvastati 2022-0 Yes [id number] 40mg Take 1 [facility] n 40 mg 2-21 tablet by ity of tablet 00:00: mouth at [place] 00 bedtime. Medical Branch Diclofenac Yes [id number] Apply to [facility] Sodium 2- 103 area(s) 4 ity of (VOLTAREN) 00:00: (four) [place] 1 % gel 00 times Medical daily. Branch Apply 4 g qid Lidocaine 5 Yes [id number] Apply to [facility] % cream 2- 103 area(s) 2 ity of 00:00: (two) [place] 00 times Medical daily as Branch needed for Pain (scale 4-6). Apply 5g to affected areas BID PRN mirtazapine Yes [id number] 15mg Take 1 [facility] 15 mg 2-21 tablet by ity of tablet 00:00: mouth at [place] 00 bedtime. Medical Branch levothyroxi Yes [id number] 100ug Take 1 [facility] ne 100 mcg 2-21 tablet by ity of tablet 00:00: mouth [place] 00 every Medical morning. Branch citalopram Yes [id number] 20mg Take 1 [facility] 20 mg 2-21 tablet by ity of tablet 00:00: mouth in [place] 00 the Medical morning. Branch donepeziL 5 2022- No [id number] 5mg Take 1 [facility] mg tablet 05-21- tablet by ity of 00:00: 00:00 mouth at [place] 00 :00 bedtime. Medical Branch donepeziL 5 2022- No [id number] 5mg Take 1 [facility] mg tablet 05-21- tablet by ity of 00:00: 00:00 mouth at [place] 00 :00 bedtime. Medical Branch levoFLOXaci 2022- No 750mg 750 mg, U nivers n 04-20 Oral, ONCE ity of (LEVAQUIN) 15:00: 14:13 NOW, 1 [place] tablet 750 00 :00 dose, On Medic al mg Sat Branch 04/20/22 at 0900, ARELI
Re ason for Anti-Infec tive: Documented Infection< br>Documen esha Infection Site: Urine
D uration of Therapy: 7 days iopamidol 2022- No [id number] 100mL 100 mL, Univers (ISOVUE 04-20 Intravenou ity o f 370-500 mL) 12:45: 11:47 s, ONCE, 1 [place] injection 00 :00 dose, On Medica l 100 mL Sat Branch 04/20/22 at 0645, Routine NaCl 0.9% Yes 5mL 5 mL, Slow Un lucy (NS) 04-20 IV Push, ity of injection 5 11:21: PRN - SEE [place] mL 36 INSTRUCTIO Medical NS, Branch Starting on 04/20/22 at 0521, Until Discontinu ed, 10 mL levoFLOXaci 2022-0 Yes [id number] 500mg Take 1 [facility] n 04-20 tablet by ity of (LEVAQUIN) 00:00: mouth [place] 500 mg 00 every 24 Medical tablet (twenty-fo Branch ur) hours. levoFLOXaci 2022-0 Yes [id number] 500mg Take 1 [facility] n 04-20 tablet by ity of (LEVAQUIN) 00:00: mouth [place] 500 mg 00 every 24 Medical tablet (twenty-fo Branch ur) hours. levoFLOXaci 2022-0 2022- No [id number] 500mg Take 1 [facility] n 04-20 tablet by ity of (LEVAQUIN) 00:00: 00:00 mouth [place] 500 mg 00 :00 every 24 Medical tablet (twenty-fo Branch ur) hours. levoFLOXaci 2022-0 2022- No [id number] 500mg Take 1 [facility] n 04-20 tablet by ity of (LEVAQUIN) 00:00: 00:00 mouth [place] 500 mg 00 :00 every 24 Medical tablet (twenty-fo Branch ur) hours. cefdinir 2022-0 2022- No [id number] 300mg Take 1 U nivers 300 mg 04-09 capsule by ity of capsule 00:00: 05:59 mouth [place] 00 :00 every 12 Medical (twelve) Branch hours for 5 days. Pantoprazol Pantoprazol 2021-03 No 1{table QD Pantoprazo e Sodium 40 e Sodium 40 2-01 t} le Sodium MG MG 00:00: 40 MG 00 Pantoprazol Pantoprazol 2021-03 No 1{table QD Pantoprazo e Sodium 40 e Sodium 40 2- t} le Sodium MG MG 00:00: 40 MG 00 Pantoprazol Pantoprazol 2021-03 No 1{table QD Pantoprazo e Sodium 40 e Sodium 40 2-01 t} le Sodium MG MG 00:00: 40 MG 00 Pantoprazol Pantoprazol 2021-03 No 1{table QD Pantoprazo e Sodium 40 e Sodium 40 2-01 t} le Sodium MG MG 00:00: 40 MG 00 donepezil 2021-03 Yes 5mg Take 5 mg [place] ing[facility] (ARICEPT) 5 0-19 by mouth [facility] ege MG tablet 08:34: nightly. of 46 Medicin e donepezil 2021-03 Yes 5mg Take 5 mg [place] ing[facility] (ARICEPT) 5 0-19 by mouth [place]ana ege MG tablet 08:34: nightly. of 46 Medicin e sod 2021-03- No [id number] 1{packe 1 Packet, [facility] bicarb-citr 0-05 10-05 t} Oral, ity of ic 14:45: 14:34 ONCE, 1 [place] ac-simeth 00 :00 dose, On Medica l (E-Z-GAS Wed Branch II) 01/02/22 at 2.21-1.53 0945, gram/4 gram Routine packet 1 Packet barium 2021-03- No [id number] 710mL 710 mL, U nivers sulfate 0-05 10-05 Oral, ity of (LIQUID E-Z 14:45: 14:35 ONCE, 1 [facility] [place] BREAUX) 60 % 00 :00 dose, On Medi manny (w/v) oral Wed Branch suspension 01/02/22 at 710 mL 0945, Routine ergocalcife 2021- No [id number] Take 1 [facility] ro[facility], 12-2130 capsule by ity of vitamin d2, 00:00[place] 04:[place] 1,250 mcg 00 :00 weekly for Medi manny (50,000 6 doses. Branch unit) capsule ergocalcife 2021- No [id number] Take 1 [facility] rol, 12-21 10-30 capsule by ity of vitamin d2, 00:00: 04:59 [place] 1,250 mcg 00 :00 weekly for Medi manny (50,000 6 doses. Branch unit) capsule ergocalcife 2021- No [id number] Take 1 [facility] rol, 9-23 10-30 capsule by ity of vitamin d2, 00:00: 04:59 mouth [place] 1,250 mcg 00 :00 weekly for Medi manny (50,000 6 doses. Branch unit) capsule ergocalcife 2021- No [id number] Take 1 [facility] rol, 9-23 10-30 capsule by ity of vitamin d2, 00:00: 04:59 mouth [place] 1,250 mcg 00 :00 weekly for Medi manny (50,000 6 doses. Branch unit) capsule ergocalcife 2021- No [id number] Take 1 [facility] rol, 9-23 10-30 capsule by ity of vitamin d2, 00:00: 04:59 [place] 1,250 mcg 00 :00 weekly for Medi manny (50,000 6 doses. Branch unit) capsule ergocalcife 2021- No [id number] Take 1 [facility] rol, 9-23 10-30 capsule by ity of vitamin d2, 00:00: 04:59 mouth [place] 1,250 mcg 00 :00 weekly for Medi manny (50,000 6 doses. Branch unit) capsule ergocalcife 2021- No [id number] Take 1 [facility] rol, 9-23 10-30 capsule by ity of vitamin d2, 00:00: 04:59 mouth [place] 1,250 mcg 00 :00 weekly for Medi manny (50,000 6 doses. Branch unit) capsule ergocalcife 2021- No [id number] Take 1 [facility] rol, 9-23 10-30 capsule by ity of vitamin d2, 00:00: 04:59 mouth [place] 1,250 mcg 00 :00 weekly for Medi manny (50,000 6 doses. Branch unit) capsule ergocalcife 2021- No [id number] Take 1 [facility] rol, 9-23 10-30 capsule by ity of vitamin d2, 00:00: 04:59 mouth [place] 1,250 mcg 00 :00 weekly for Medi manny (50,000 6 doses. Branch unit) capsule ergocalcife 2021- No [id number] Take 1 [facility] rol, 9-23 10-30 capsule by ity of vitamin d2, 00:00: 04:59 mouth [place] 1,250 mcg 00 :00 weekly for Medi manny (50,000 6 doses. Branch unit) capsule ergocalcife 2021- No [id number] Take 1 [facility] rol, 9-23 10-30 capsule by ity of vitamin d2, 00:00: 04:59 mouth [place] 1,250 mcg 00 :00 weekly for Medi manny (50,000 6 doses. Branch unit) capsule ergocalcife 2021- No [id number] Take 1 [facility] rol, 9-23 10-30 capsule by ity of vitamin d2, 00:00: 04:59 mouth [place] 1,250 mcg 00 :00 weekly for Medi manny (50,000 6 doses. Branch unit) capsule ergocalcife 2021- No [id number] Take 1 [facility] rol, 9-23 10-30 capsule by ity of vitamin d2, 00:00: 04:59 mouth [place] 1,250 mcg 00 :00 weekly for Medi manny (50,000 6 doses. Branch unit) capsule pantoprazol Yes [id number] 40mg Take 1 [facility] e 40 mg EC 9-22 tablet by ity of tablet 00:00: mouth in [place] 00 the Medical morning. Branch pantoprazol Yes [id number] 40mg Take 1 [facility] e 40 mg EC 9-22 tablet by ity of tablet 00:00: mouth in [place] 00 the Medical morning. Branch pantoprazol Yes [id number] 40mg Take 1 [facility] e 40 mg EC 9-22 tablet by ity of tablet 00:00: mouth in [place] 00 the Medical morning. Branch pantoprazol Yes [id number] 40mg Take 1 [facility] e 40 mg EC 9-22 tablet by ity of tablet 00:00: mouth in [place] 00 the Medical morning. Branch pantoprazol Yes [id number] 40mg Take 1 [facility] e 40 mg EC 9-22 tablet by ity of tablet 00:00: mouth in [place] 00 the Medical morning. Branch pantoprazol Yes [id number] 40mg Take 1 [facility] e 40 mg EC 9-22 tablet by ity of tablet 00:00: mouth in [place] 00 the Medical morning. Branch pantoprazol 2021-0 Yes [id number] 40mg Take 1 [facility] e 40 mg EC 9-22 tablet by ity of tablet 00:00: mouth in [place] 00 the Medical morning. Branch pantoprazol 2021-0 Yes [id number] 40mg Take 1 [facility] e 40 mg EC 9-22 tablet by ity of tablet 00:00: mouth in [place] 00 the Medical morning. Branch pantoprazol 2021-0 Yes [id number] 40mg Take 1 [facility] e 40 mg EC 9-22 tablet by ity of tablet 00:00: mouth in [place] 00 the Medical morning. Branch pantoprazol 2021-0 Yes [id number] 40mg Take 1 [facility] e 40 mg EC 9-22 tablet by ity of tablet 00:00: mouth in [place] 00 the Medical morning. Branch pantoprazol 2021-0 Yes [id number] 40mg Take 1 [facility] e 40 mg EC 9-22 tablet by ity of tablet 00:00: mouth in [place] 00 the Medical morning. Branch pantoprazol 2021-0 Yes [id number] 40mg Take 1 [facility] e 40 mg EC 9-22 tablet by ity of tablet 00:00: mouth in [place] 00 the Medical morning. Branch pantoprazol 2021-0 Yes [id number] 40mg Take 1 [facility] e 40 mg EC 9-22 tablet by ity of tablet 00:00: mouth in [place] 00 the Medical morning. Branch pantoprazol 2021-0 2022- No [id number] 40mg Take 1 [facility] e 40 mg EC 9-22 02-21 tablet by ity of tablet 00:00: 00:00 mouth in [place] 00 :00 the Medical morning. Branch pantoprazol 2021-0 2022- No [id number] 40mg Take 1 [facility] e 40 mg EC 9-22 02-21 tablet by ity of tablet 00:00: 00:00 mouth in [place] 00 :00 the Medical morning. Branch amLODIPine 2021-0 2021- No [id number] 5mg Take 1 [facility] 5 mg tablet 9-19 10-20 tablet by it y of 00:00: 04:59 mouth in [place] 00 :00 the Medical morning Branch for 30 days. amLODIPine 2021-0 2022- No [id number] 5mg Take 1 [facility] 5 mg tablet 9-19 10-20 tablet by it y of 00:00: 04:59 mouth in [place] 00 :00 the Medical morning Branch for 30 days. amLODIPine 2022-0 2022- No [id number] 5mg Take 1 [facility] 5 mg tablet 9-19 10-20 tablet by it y of 00:00: 04:59 mouth in [place] 00 :00 the Medical morning Branch for 30 days. amLODIPine 2-0 2- No [id number] 5mg Take 1 [facility] 5 mg tablet 9-19 10-20 tablet by it y of 00:00: 04:59 mouth in [place] 00 :00 the Medical morning Branch for 30 days. amLODIPine 2-0 2- No [id number] 5mg Take 1 [facility] 5 mg tablet 9-19 10-20 tablet by it y of 00:00: 04:59 mouth in [place] 00 :00 the Medical morning Branch for 30 days. amLODIPine 2021-0 2- No [id number] 5mg Take 1 [facility] 5 mg tablet 9-19 10-20 tablet by it y of 00:00: 04:59 mouth in [place] 00 :00 the Medical morning Branch for 30 days. amLODIPine 2-0 2- No [id number] 5mg Take 1 [facility] 5 mg tablet 9-19 10-20 tablet by it y of 00:00: 04:59 mouth in [place] 00 :00 the Medical morning Branch for 30 days. amLODIPine 2-0 2- No [id number] 5mg Take 1 [facility] 5 mg tablet 9-19 10-20 tablet by it y of 00:00: 04:59 mouth in [place] 00 :00 the Medical morning Branch for 30 days. amLODIPine 2-0 2- No [id number] 5mg Take 1 [facility] 5 mg tablet 9-19 10-20 tablet by it y of 00:00: 04:59 mouth in [place] 00 :00 the Medical morning Branch for 30 days. amLODIPine 2022-0 2022- No [id number] 5mg Take 1 [facility] 5 mg tablet 9-19 10-20 tablet by it y of 00:00: 04:59 mouth in [place] 00 :00 the Medical morning Branch for 30 days. amLODIPine 2022-0 2022- No [id number] 5mg Take 1 [facility] 5 mg tablet 9-19 10-20 tablet by it y of 00:00: 04:59 mouth in [place] 00 :00 the Medical morning Branch for 30 days. atorvastati Yes 40mg Take 40 mg [facility] n (LIPITOR) 9-18 by mouth ity of 40 mg 15:46: at [place] tablet 50 bedtime. Medical Branch Cholecalcif Yes 1000U Take 1,000 [facility] stevan, 9-18 Units by ity of Vitamin D3, 15:46: mouth [place] 25 mcg 50 daily. Medical (1,000 Branch unit) capsule pantoprazol Yes 40mg Take 40 mg [facility] e 40 mg EC 9-18 by mouth 2 ity of tablet 15:46: (two) [place] 50 times Medical daily. Branch metoprolol Yes 100mg Take 100 Un lucy tartrate 25 9-18 mg by ity of mg tablet 15:46: mouth [place] 50 the Medical morning Branch and 100 mg in the evening. B Complex Yes Take by Unive rs Vitamins 9-18 mouth. ity of tablet 15:46: [place] 50 Medical Branch diphenhydrA Yes 25mg Take 25 mg [facility] MINE 25 mg 9-18 by mouth ity o f capsule 15:46: every 6 [place] 50 (six) Medical hours as Branch needed for Allergies. citalopram Yes 20mg Take 20 mg U nivers 20 mg 9-18 by mouth ity of tablet 15:46: in the [place] morning. Medical Branch alfuzosin Yes 10mg Take 10 mg Un lucy 10 mg 24 hr 9-18 by mouth ity of tablet 15:46: at [place] 50 bedtime. Medical Branch nitrofurant Yes 100mg Take 100 U nivers oin 100 mg 9-18 mg by ity of capsule 15:46: mouth at [place] 50 bedtime. Medical Branch donepeziL 5 0 Yes 5mg Take 5 mg U nivers mg tablet 9-18 by mouth ity of 15:46: at [place] 50 bedtime. Medical Branch atorvastati Yes 40mg Take 40 mg [facility] n (LIPITOR) 9-18 by mouth ity of 40 mg 15:46: at [place] tablet 50 bedtime. Medical Branch Cholecalcif 2022-0 Yes 1000U Take 1,000 [facility] stevan, 9-18 Units by ity of Vitamin D3, 15:46: mouth [place] 25 mcg 50 daily. Medical (1,000 Branch unit) capsule pantoprazol 0 Yes 40mg Take 40 mg [facility] e 40 mg EC 9-18 by mouth 2 ity of tablet 15:46: (two) [place] 50 times Medical daily. Branch metoprolol 0 Yes 100mg Take 100 Un lucy tartrate 25 9-18 mg by ity of mg tablet 15:46: mouth [place] 50 the Medical morning Branch and 100 mg in the evening. B Complex Yes Take by Unive rs Vitamins 9-18 mouth. ity of tablet 15:46: [place] 50 Medical Branch diphenhydrA 0 Yes 25mg Take 25 mg [facility] MINE 25 mg 9-18 by mouth ity o f capsule 15:46: every 6 [place] 50 (six) Medical hours as Branch needed for Allergies. citalopram Yes 20mg Take 20 mg U nivers 20 mg 9-18 by mouth ity of tablet 15:46: in the [place] 50 morning. Medical Branch alfuzosin Yes 10mg Take 10 mg Un lucy 10 mg 24 hr 9-18 by mouth ity of tablet 15:46: at [place] 50 bedtime. Medical Branch nitrofurant 0 Yes 100mg Take 100 U nivers oin 100 mg 9-18 mg by ity of capsule 15:46: mouth at [place] 50 bedtime. Medical Branch donepeziL 5 Yes 5mg Take 5 mg U nivers mg tablet 9-18 by mouth ity of 15:46: at [place] 50 bedtime. Medical Branch atorvastati Yes 40mg Take 40 mg [facility] n (LIPITOR) 9-18 by mouth ity of 40 mg 15:46: at [place] tablet 50 bedtime. Medical Branch Cholecalcif Yes 1000U Take 1,000 [facility] stevan, 9-18 Units by ity of Vitamin D3, 15:46: mouth [place] 25 mcg 50 daily. Medical (1,000 Branch unit) capsule pantoprazol 0 Yes 40mg Take 40 mg [facility] e 40 mg EC 9-18 by mouth 2 ity of tablet 15:46: (two) [place] 50 times Medical daily. Branch metoprolol 0 Yes 100mg Take 100 Un lucy tartrate 25 9-18 mg by ity of mg tablet 15:46: mouth [place] 50 the Medical morning Branch and 100 mg in the evening. B Complex 0 Yes Take by Unive rs Vitamins 9-18 mouth. ity of tablet 15:46: [place] 50 Medical Branch diphenhydrA 0 Yes 25mg Take 25 mg [facility] MINE 25 mg 9-18 by mouth ity o f capsule 15:46: every 6 [place] 50 (six) Medical hours as Branch needed for Allergies. citalopram 0 Yes 20mg Take 20 mg U nivers 20 mg 9-18 by mouth ity of tablet 15:46: in the [place] 50 morning. Medical Branch alfuzosin 0 Yes 10mg Take 10 mg Un lucy 10 mg 24 hr 9-18 by mouth ity of tablet 15:46: at [place] [address] bedtime. Medical Branch nitrofurant 0 Yes 100mg Take 100 U nivers oin 100 mg 9-18 mg by ity of capsule 15:46: mouth at [place] bedtime. Medical Branch donepeziL 5 0 Yes 5mg Take 5 mg U nivers mg tablet 9-18 by mouth ity of 15:46: at [place] 50 bedtime. Medical Branch atorvastati 0 Yes 40mg Take 40 mg [facility] n (LIPITOR) 9-18 by mouth ity of 40 mg 15:46: at [place] tablet 50 bedtime. Medical Branch Cholecalcif 0 Yes 1000U Take 1,000 [facility] stevan, 9-18 Units by ity of Vitamin D3, 15:46: mouth [place] 25 mcg 50 daily. Medical (1,000 Branch unit) capsule pantoprazol 0 Yes 40mg Take 40 mg [facility] e 40 mg EC 9-18 by mouth 2 ity of tablet 15:46: (two) [place] 50 times Medical daily. Branch metoprolol 0 Yes 100mg Take 100 Un lucy tartrate 25 9-18 mg by ity of mg tablet 15:46: mouth in [place] 50 the Medical morning Branch and 100 mg in the evening. B Complex 0 Yes Take by Unive rs Vitamins 9-18 mouth. ity of tablet 15:46: [place] 50 Medical Branch diphenhydrA Yes 25mg Take 25 mg [facility] MINE 25 mg 9-18 by mouth ity o f capsule 15:46: every 6 [place] 50 (six) Medical hours as Branch needed for Allergies. citalopram Yes 20mg Take 20 mg U nivers 20 mg 9-18 by mouth ity of tablet 15:46: in the [place] 50 morning. Medical Branch alfuzosin Yes 10mg Take 10 mg Un lucy 10 mg 24 hr 9-18 by mouth ity of tablet 15:46: at [place] 50 bedtime. Medical Branch nitrofurant Yes 100mg Take 100 U nivers oin 100 mg 9-18 mg by ity of capsule 15:46: mouth at [place] 50 bedtime. Medical Branch donepeziL 5 Yes 5mg Take 5 mg U nivers mg tablet 9-18 by mouth ity of 15:46: at [place] [address] bedtime. Medical Branch atorvastati Yes 40mg Take 40 mg [facility] n (LIPITOR) 9-18 by mouth ity of 40 mg 15:46: at [place] tablet 50 bedtime. Medical Branch Cholecalcif Yes 1000U Take 1,000 [facility] stevan, 9-18 Units by ity of Vitamin D3, 15:46: mouth [place] 25 mcg 50 daily. Medical (1,000 Branch unit) capsule pantoprazol Yes 40mg Take 40 mg [facility] e 40 mg EC 9-18 by mouth 2 ity of tablet 15:46: (two) [place] 50 times Medical daily. Branch metoprolol Yes 100mg Take 100 Un lucy tartrate 25 9-18 mg by ity of mg tablet 15:46: mouth in [place] 50 the Medical morning Branch and 100 mg in the evening. B Complex 0 Yes Take by Unive rs Vitamins 9-18 mouth. ity of tablet 15:46: [place] 50 Medical Branch diphenhydrA 0 Yes 25mg Take 25 mg [facility] MINE 25 mg 9-18 by mouth ity o f capsule 15:46: every 6 [place] 50 (six) Medical hours as Branch needed for Allergies. citalopram 0 Yes 20mg Take 20 mg U nivers 20 mg 9-18 by mouth ity of tablet 15:46: in the [place] [address] morning. Medical Branch alfuzosin Yes 10mg Take 10 mg Un lucy 10 mg 24 hr 9-18 by mouth ity of tablet 15:46: at [place] [address] bedtime. Medical Branch nitrofurant 0 Yes 100mg Take 100 U nivers oin 100 mg 9-18 mg by ity of capsule 15:46: mouth at [place] 50 bedtime. Medical Branch donepeziL 5 0 Yes 5mg Take 5 mg U nivers mg tablet 9-18 by mouth ity of 15:46: at [place] bedtime. Medical Branch atorvastati Yes 40mg Take 40 mg [facility] n (LIPITOR) 9-18 by mouth ity of 40 mg 15:46: at [place] tablet 50 bedtime. Medical Branch Cholecalcif Yes 1000U Take 1,000 [facility] stevan, 9-18 Units by ity of Vitamin D3, 15:46: mouth [place] 25 mcg 50 daily. Medical (1,000 Branch unit) capsule pantoprazol Yes 40mg Take 40 mg [facility] e 40 mg EC 9-18 by mouth 2 ity of tablet 15:46: (two) [place] 50 times Medical daily. Branch metoprolol Yes 100mg Take 100 Un lucy tartrate 25 9-18 mg by ity of mg tablet 15:46: mouth in [place] 50 the Medical morning Branch and 100 mg in the evening. B Complex Yes Take by Unive rs Vitamins 9-18 mouth. ity of tablet 15:46: [place] 50 Medical Branch diphenhydrA 0 Yes 25mg Take 25 mg [facility] MINE 25 mg 9-18 by mouth ity o f capsule 15:46: every 6 [place] 50 (six) Medical hours as Branch needed for Allergies. citalopram 0 Yes 20mg Take 20 mg U nivers 20 mg 9-18 by mouth ity of tablet 15:46: in the [place] [address] morning. Medical Branch alfuzosin 0 Yes 10mg Take 10 mg Un lucy 10 mg 24 hr 9-18 by mouth ity of tablet 15:46: at [place] bedtime. Medical Branch nitrofurant 0 Yes 100mg Take 100 U nivers oin 100 mg 9-18 mg by ity of capsule 15:46: mouth at [place] 50 bedtime. Medical Branch donepeziL 5 Yes 5mg Take 5 mg U nivers mg tablet 9-18 by mouth ity of 15:46: at [place] 50 bedtime. Medical Branch atorvastati Yes 40mg Take 40 mg [facility] n (LIPITOR) 9-18 by mouth ity of 40 mg 15:46: at [place] tablet 50 bedtime. Medical Branch Cholecalcif Yes 1000U Take 1,000 [facility] stevan, 9-18 Units by ity of Vitamin D3, 15:46: mouth [place] 25 mcg 50 daily. Medical (1,000 Branch unit) capsule pantoprazol Yes 40mg Take 40 mg [facility] e 40 mg EC 9-18 by mouth 2 ity of tablet 15:46: (two) [place] 50 times Medical daily. Branch metoprolol Yes 100mg Take 100 Un lucy tartrate 25 9-18 mg by ity of mg tablet 15:46: mouth in [facility] 50 the Medical morning Branch and 100 mg in the evening. B Complex Yes Take by Unive rs Vitamins 9-18 mouth. ity of tablet 15:46: [place] 50 Medical Branch diphenhydrA Yes 25mg Take 25 mg [facility] MINE 25 mg 9-18 by mouth ity o f capsule 15:46: every 6 [place] (six) Medical hours as Branch needed for Allergies. citalopram Yes 20mg Take 20 mg U nivers 20 mg 9-18 by mouth ity of tablet 15:46: in the [place] [address] morning. Medical Branch alfuzosin Yes 10mg Take 10 mg Un lucy 10 mg 24 hr 9-18 by mouth ity of tablet 15:46: at [place] 50 bedtime. Medical Branch nitrofurant Yes 100mg Take 100 U nivers oin 100 mg 9-18 mg by ity of capsule 15:46: mouth at [place] 50 bedtime. Medical Branch donepeziL 5 Yes 5mg Take 5 mg U nivers mg tablet 9-18 by mouth ity of 15:46: at [place] bedtime. Medical Branch atorvastati Yes 40mg Take 40 mg [facility] n (LIPITOR) 9-18 by mouth ity of 40 mg 15:46: at [place] tablet 50 bedtime. Medical Branch Cholecalcif Yes 1000U Take 1,000 [facility] stevan, 9-18 Units by ity of Vitamin D3, 15:46: mouth [place] 25 mcg 50 daily. Medical (1,000 Branch unit) capsule pantoprazol Yes 40mg Take 40 mg [facility] e 40 mg EC 9-18 by mouth 2 ity of tablet 15:46: (two) [place] 50 times Medical daily. Branch metoprolol Yes 100mg Take 100 Un lucy tartrate 25 9-18 mg by ity of mg tablet 15:46: mouth [place] 50 the Medical morning Branch and 100 mg in the evening. B Complex Yes Take by Unive rs Vitamins 9-18 mouth. ity of tablet 15:46: [place] 50 Medical Branch diphenhydrA Yes 25mg Take 25 mg [facility] MINE 25 mg 9-18 by mouth ity o f capsule 15:46: every 6 [place] 50 (six) Medical hours as Branch needed for Allergies. citalopram Yes 20mg Take 20 mg U nivers 20 mg 9-18 by mouth ity of tablet 15:46: in the [place] 50 morning. Medical Branch alfuzosin Yes 10mg Take 10 mg Un lucy 10 mg 24 hr 9-18 by mouth ity of tablet 15:46: at [place] 50 bedtime. Medical Branch nitrofurant Yes 100mg Take 100 U nivers oin 100 mg 9-18 mg by ity of capsule 15:46: mouth at [place] 50 bedtime. Medical Branch donepeziL 5 Yes 5mg Take 5 mg U nivers mg tablet 9-18 by mouth ity of 15:46: at [place] 50 bedtime. Medical Branch atorvastati Yes 40mg Take 40 mg [facility] n (LIPITOR) 9-18 by mouth ity of 40 mg 15:46: at [place] tablet 50 bedtime. Medical Branch Cholecalcif Yes 1000U Take 1,000 [facility] stevan, 9-18 Units by ity of Vitamin D3, 15:46: mouth [place] 25 mcg 50 daily. Medical (1,000 Branch unit) capsule pantoprazol Yes 40mg Take 40 mg [facility] e 40 mg EC 9-18 by mouth 2 ity of tablet 15:46: (two) [place] 50 times Medical daily. Branch metoprolol Yes 100mg Take 100 Un lucy tartrate 25 9-18 mg by ity of mg tablet 15:46: mouth in [place] 50 the Medical morning Branch and 100 mg in the evening. B Complex Yes Take by Unive rs Vitamins 9-18 mouth. ity of tablet 15:46: [place] 50 Medical Branch diphenhydrA 0 Yes 25mg Take 25 mg [facility] MINE 25 mg 9-18 by mouth ity o f capsule 15:46: every 6 [place] 50 (six) Medical hours as Branch needed for Allergies. citalopram Yes 20mg Take 20 mg U nivers 20 mg 9-18 by mouth ity of tablet 15:46: in the [place] 50 morning. Medical Branch alfuzosin Yes 10mg Take 10 mg Un lucy 10 mg 24 hr 9-18 by mouth ity of tablet 15:46: at [place] 50 bedtime. Medical Branch nitrofurant Yes 100mg Take 100 U nivers oin 100 mg 9-18 mg by ity of capsule 15:46: mouth at [place] 50 bedtime. Medical Branch donepeziL 5 Yes 5mg Take 5 mg U nivers mg tablet 9-18 by mouth ity of 15:46: at [place] 50 bedtime. Medical Branch atorvastati Yes 40mg Take 40 mg [facility] n (LIPITOR) 9-18 by mouth ity of 40 mg 15:46: at [place] tablet 50 bedtime. Medical Branch Cholecalcif Yes 1000U Take 1,000 [facility] stevan, 9-18 Units by ity of Vitamin D3, 15:46: mouth [place] 25 mcg 50 daily. Medical (1,000 Branch unit) capsule pantoprazol Yes 40mg Take 40 mg [facility] e 40 mg EC 9-18 by mouth 2 ity of tablet 15:46: (two) [place] 50 times Medical daily. Branch metoprolol Yes 100mg Take 100 Un lucy tartrate 25 9-18 mg by ity of mg tablet 15:46: mouth in [place] 50 the Medical morning Branch and 100 mg in the evening. B Complex Yes Take by Unive rs Vitamins 9-18 mouth. ity of tablet 15:46: [place] 50 Medical Branch diphenhydrA 0 Yes 25mg Take 25 mg [facility] MINE 25 mg 9-18 by mouth ity o f capsule 15:46: every 6 [place] 50 (six) Medical hours as Branch needed for Allergies. citalopram Yes 20mg Take 20 mg U nivers 20 mg 9-18 by mouth ity of tablet 15:46: in the [place] 50 morning. Medical Branch alfuzosin Yes 10mg Take 10 mg Un lucy 10 mg 24 hr 9-18 by mouth ity of tablet 15:46: at [place] 50 bedtime. Medical Branch nitrofurant Yes 100mg Take 100 U nivers oin 100 mg 9-18 mg by ity of capsule 15:46: mouth at [place] 50 bedtime. Medical Branch donepeziL 5 Yes 5mg Take 5 mg U nivers mg tablet 9-18 by mouth ity of 15:46: at [place] 50 bedtime. Medical Branch atorvastati Yes 40mg Take 40 mg [facility] n (LIPITOR) 9-18 by mouth ity of 40 mg 15:46: at [place] tablet 50 bedtime. Medical Branch Cholecalcif Yes 1000U Take 1,000 [facility] stevan, 9-18 Units by ity of Vitamin D3, 15:46: mouth [place] 25 mcg 50 daily. Medical (1,000 Branch unit) capsule pantoprazol Yes 40mg Take 40 mg [facility] e 40 mg EC 9-18 by mouth 2 ity of tablet 15:46: (two) [place] 50 times Medical daily. Branch metoprolol Yes 100mg Take 100 Un lucy tartrate 25 9-18 mg by ity of mg tablet 15:46: mouth in [place] 50 the Medical morning Branch and 100 mg in the evening. B Complex Yes Take by Unive rs Vitamins 9-18 mouth. ity of tablet 15:46: [place] 50 Medical Branch diphenhydrA 0 Yes 25mg Take 25 mg [facility] MINE 25 mg 9-18 by mouth ity o f capsule 15:46: every 6 [place] 50 (six) Medical hours as Branch needed for Allergies. citalopram 0 Yes 20mg Take 20 mg U nivers 20 mg 9-18 by mouth ity of tablet 15:46: in the [place] morning. Medical Branch alfuzosin 0 Yes 10mg Take 10 mg Un lucy 10 mg 24 hr 9-18 by mouth ity of tablet 15:46: at [place] bedtime. Medical Branch nitrofurant 2021-0 Yes 100mg Take 100 U nivers oin 100 mg 9-18 mg by ity of capsule 15:46: mouth at [place] 50 bedtime. Medical Branch donepeziL 5 0 Yes 5mg Take 5 mg U nivers mg tablet 9-18 by mouth ity of 15:46: at [place] bedtime. Medical Branch atorvastati 0 Yes 40mg Take 40 mg [facility] n (LIPITOR) 9-18 by mouth ity of 40 mg 15:46: at [place] tablet 50 bedtime. Medical Branch Cholecalcif Yes 1000U Take 1,000 [facility] stevan, 9-18 Units by ity of Vitamin D3, 15:46: mouth [place] 25 mcg 50 daily. Medical (1,000 Branch unit) capsule pantoprazol Yes 40mg Take 40 mg [facility] e 40 mg EC 9-18 by mouth 2 ity of tablet 15:46: (two) [place] 50 times Medical daily. Branch metoprolol 0 Yes 100mg Take 100 Un lucy tartrate 25 9-18 mg by ity of mg tablet 15:46: mouth in [facility] s 50 the Medical morning Branch and 100 mg in the evening. B Complex Yes Take by Unive rs Vitamins 9-18 mouth. ity of tablet 15:46: [place] 50 Medical Branch diphenhydrA 0 Yes 25mg Take 25 mg [facility] MINE 25 mg 9-18 by mouth ity o f capsule 15:46: every 6 [place] [address] (six) Medical hours as Branch needed for Allergies. citalopram 2021-0 Yes 20mg Take 20 mg U nivers 20 mg 9-18 by mouth ity of tablet 15:46: in the [place] [address] morning. Medical Branch alfuzosin 2021-0 Yes 10mg Take 10 mg Un lucy 10 mg 24 hr 9-18 by mouth ity of tablet 15:46: at [place] 50 bedtime. Medical Branch nitrofurant Yes 100mg Take 100 U nivers oin 100 mg 9-18 mg by ity of capsule 15:46: mouth at [place] 50 bedtime. Medical Branch donepeziL 5 Yes 5mg Take 5 mg U nivers mg tablet 9-18 by mouth ity of 15:46: at [place] 50 bedtime. Medical Branch atorvastati Yes 40mg Take 40 mg [facility] n (LIPITOR) 9-18 by mouth ity of 40 mg 15:46: at [place] tablet 50 bedtime. Medical Branch Cholecalcif Yes 1000U Take 1,000 [facility] stevan, 9-18 Units by ity of Vitamin D3, 15:46: mouth [place] 25 mcg 50 daily. Medical (1,000 Branch unit) capsule pantoprazol Yes 40mg Take 40 mg [facility] e 40 mg EC 9-18 by mouth 2 ity of tablet 15:46: (two) [place] 50 times Medical daily. Branch metoprolol Yes 100mg Take 100 Un lucy tartrate 25 9-18 mg by ity of mg tablet 15:46: mouth in [place] 50 the Medical morning Branch and 100 mg in the evening. B Complex Yes Take by Unive rs Vitamins 9-18 mouth. ity of tablet 15:46: [place] 50 Medical Branch diphenhydrA Yes 25mg Take 25 mg [facility] MINE 25 mg 9-18 by mouth ity o f capsule 15:46: every 6 [place] 50 (six) Medical hours as Branch needed for Allergies. citalopram Yes 20mg Take 20 mg U nivers 20 mg 9-18 by mouth ity of tablet 15:46: in the [place] morning. Medical Branch alfuzosin Yes 10mg Take 10 mg Un lucy 10 mg 24 hr 9-18 by mouth ity of tablet 15:46: at [place] 50 bedtime. Medical Branch nitrofurant Yes 100mg Take 100 U nivers oin 100 mg 9-18 mg by ity of capsule 15:46: mouth at [place] 50 bedtime. Medical Branch donepeziL 5 Yes 5mg Take 5 mg U nivers mg tablet 9-18 by mouth ity of 15:46: at [place] 50 bedtime. Medical Branch atorvastati Yes 40mg Take 40 mg [facility] n (LIPITOR) 9-18 by mouth ity of 40 mg 15:46: at [place] tablet 50 bedtime. Medical Branch Cholecalcif Yes 1000U Take 1,000 [facility] stevan, 9-18 Units by ity of Vitamin D3, 15:46: mouth [place] 25 mcg 50 daily. Medical (1,000 Branch unit) capsule pantoprazol Yes 40mg Take 40 mg Univers e 40 mg EC 9-18 by mouth 2 ity of tablet 15:46: (two) [place] 50 times Medical daily. Branch metoprolol Yes 100mg Take 100 Un lucy tartrate 25 9-18 mg by ity of mg tablet 15:46: [place] 50 the Medical morning Branch and 100 mg in the evening. B Complex [facility] Vit[facility] 9-18 mouth. ity of tablet 15:46: [place] 50 Medical Branch diphenhydrA Yes 25mg Take 25 mg Univers MINE 25 mg 9-18 by mouth ity o f capsule 15:46: every 6 [place] 50 (six) Medical hours as Branch needed for Allergies. citalopram Yes 20mg Take 20 mg U nivers 20 mg 9-18 by mouth ity of tablet 15:46: in the [place] 50 morning. Medical Branch alfuzosin Yes 10mg Take 10 mg Un [facility]cy 10 mg 24 hr 9-18 by mouth ity of tablet 15:46: at [place] 50 bedtime. Medical Branch nitrofurant Yes 100mg Take 100 U nivers oin 100 mg 9-18 mg by ity of capsule 15:46: mouth at [place] 50 bedtime. Medical Branch donepeziL 5 0 Yes 5mg Take 5 mg U nivers mg tablet 9-18 by mouth ity of 15:46: at [place] 50 bedtime. Medical Branch atorvastati Yes 40mg Take 40 mg [facility] n (LIPITOR) 9-18 by mouth ity of 40 mg 15:46: at [place] tablet 50 bedtime. Medical Branch Cholecalcif Yes 1000U Take 1,000 [facility] stevan, 9-18 Units by ity of Vitamin D3, 15:46: mouth [place] 25 mcg 50 daily. Medical (1,000 Branch unit) capsule pantoprazol Yes 40mg Take 40 mg [facility] e 40 mg EC 9-18 by mouth 2 ity of tablet 15:46: (two) [place] 50 times Medical daily. Branch metoprolol Yes 100mg Take 100 Un lucy tartrate 25 9-18 mg by ity of mg tablet 15:46: mouth [place] 50 the Medical morning Branch and 100 mg in the evening. B Complex Yes Take by [facility] rs Vitamins 9-18 mouth. ity of tablet 15:46: [place] 50 Medical Branch diphenhydrA 0 Yes 25mg Take 25 mg [facility] MINE 25 mg 9-18 by mouth ity o f capsule 15:46: every 6 [place] 50 (six) Medical hours as Branch needed for Allergies. citalopram Yes 20mg Take 20 mg U nivers 20 mg 9-18 by mouth ity of tablet 15:46: in the [place] 50 morning. Medical Branch alfuzosin Yes 10mg Take 10 mg Un lucy 10 mg 24 hr 9-18 by mouth ity of tablet 15:46: at [place] 50 bedtime. Medical Branch nitrofurant Yes 100mg Take 100 U nivers oin 100 mg 9-18 mg by ity of capsule 15:46: mouth at [place] 50 bedtime. Medical Branch donepeziL 5 Yes 5mg Take 5 mg U nivers mg tablet 9-18 by mouth ity of 15:46: at [place] 50 bedtime. Medical Branch atorvastati Yes 40mg Take 40 mg [facility] n (LIPITOR) 9-18 by mouth ity of 40 mg 15:46: at [place] tablet 50 bedtime. Medical Branch Cholecalcif Yes 1000U Take 1,000 [facility] stevan, 9-18 Units by ity of Vitamin D3, 15:46: mouth [place] 25 mcg 50 daily. Medical (1,000 Branch unit) capsule pantoprazol Yes 40mg Take 40 mg [facility] e 40 mg EC 9-18 by mouth 2 ity of tablet 15:46: (two) [place] 50 times Medical daily. Branch metoprolol 2022-0 Yes 100mg Take 100 Un lucy tartrate 25 9-18 mg by ity of mg tablet 15:46: mouth [place] 50 the Medical morning Branch and 100 mg in the evening. B Complex 2021-0 Yes [facility] Vit[facility] 9-18 mouth. ity of tablet 15:46: [place] [address] Medical Branch diphenhydrA 2021-0 Yes 25mg Take 25 mg [facility] MINE 25 mg 9-18 by mouth ity o f capsule 15:46: every 6 [place] [address] (six) Medical hours as Branch needed for Allergies. citalopram 0 Yes 20mg Take 20 mg U nivers 20 mg 9-18 by mouth ity of tablet 15:46: in the [place] [address] morning. Medical Branch alfuzosin 0 Yes 10mg Take 10 mg Un lucy 10 mg 24 hr 9-18 by mouth ity of tablet 15:46: at [place] [address] bedtime. Medical Branch nitrofurant 2021-0 Yes 100mg Take 100 U nivers oin 100 mg 9-18 mg by ity of capsule 15:46: mouth at [place] [address] bedtime. Medical Branch donepeziL 5 0 Yes 5mg Take 5 mg U nivers mg tablet 9-18 by mouth ity of 15:46: at [place] [address] bedtime. Medical Branch Cholecalcif 2021-0 Yes 1000U Take 1,000 [facility] stevan, 9-18 Units by ity of Vitamin D3, 15:46: mouth [place] 25 mcg 50 daily. Medical (1,000 Branch unit) capsule metoprolol 2021-0 Yes 100mg Take 100 Un lucy tartrate 25 9-18 mg by ity of mg tablet 15:46: mouth [facility] morning Branch and 100 mg in the evening. B Complex 2021-0 Yes Take by [employer] rs Vitamins 9-18 mouth. ity of tablet 15:46: [place] [address] Medical Branch diphenhydrA 2021-0 Yes 25mg Take 25 mg [facility] MINE 25 mg 9-18 by mouth ity o f capsule 15:46: every 6 [place] [address] (six) Medical hours as Branch needed for Allergies. Cholecalcif 2021-0 Yes 1000U Take 1,000 [facility] stevan, 9-18 Units by ity of Vitamin D3, 15:46: mouth [place] 25 mcg 50 daily. Medical (1,000 Branch unit) capsule metoprolol 2022-0 Yes 100mg Take 100 Un lucy tartrate 25 9-18 mg by ity of mg tablet 15:46: mouth in [place] [address] the Medical morning Branch and 100 mg in the evening. B Complex 2022-0 Yes Take by [employer] rs Vitamins 9-18 mouth. ity of tablet 15:46: [place] [address] Medical Branch diphenhydrA 2022-0 Yes 25mg Take 25 mg [facility] MINE 25 mg 9-18 by mouth ity o f capsule 15:46: every 6 [place] [address] (six) Medical hours as Branch needed for Allergies. Cholecalcif 2022-0 Yes 1000U Take 1,000 [facility] stevan, 9-18 Units by ity of Vitamin D3, 15:46: mouth [place] 25 mcg 50 daily. Medical (1,000 Branch unit) capsule metoprolol 2022-0 Yes 100mg Take 100 Un lucy tartrate 25 9-18 mg by ity of mg tablet 15:46: mouth in [place] [address] the Medical morning Branch and 100 mg in the evening. B Complex 2022-0 Yes Take by [employer] rs Vitamins 9-18 mouth. ity of tablet 15:46: [place] [address] Medical Branch diphenhydrA 2022-0 Yes 25mg Take 25 mg [facility] MINE 25 mg 9-18 by mouth ity o f capsule 15:46: every 6 [place] [address] (six) Medical hours as Branch needed for Allergies. Cholecalcif 2022-0 Yes 1000U Take 1,000 [facility] stevan, 9-18 Units by ity of Vitamin D3, 15:46: mouth [place] 25 mcg 50 daily. Medical (1,000 Branch unit) capsule metoprolol 2022-0 Yes 100mg Take 100 Un lucy tartrate 25 9-18 mg by ity of mg tablet 15:46: mouth in [facility] 50 the Medical morning Branch and 100 mg in the evening. B Complex 2022-0 Yes Take by [employer] rs Vitamins 9-18 mouth. ity of tablet 15:46: [place] [address] Medical Branch diphenhydrA 2022-0 Yes 25mg Take 25 mg [facility] MINE 25 mg 9-18 by mouth ity o f capsule 15:46: every 6 [place] [address] (six) Medical hours as Branch needed for Allergies. Cholecalcif 2022-0 Yes 1000U Take 1,000 [facility] stevan, 9-18 Units by ity of Vitamin D3, 15:46: mouth [place] 25 mcg 50 daily. Medical (1,000 Branch unit) capsule metoprolol 2022-0 Yes 100mg Take 100 Un lucy tartrate 25 9-18 mg by ity of mg tablet 15:46: mouth [place] 50 the Medical morning Branch and 100 mg in the evening. B Complex 2022-0 Yes Take by Unive rs Vitamins 9-18 mouth. ity of tablet 15:46: [place] [address] Medical Branch diphenhydrA 2022-0 Yes 25mg Take 25 mg [facility] MINE 25 mg 9-18 by mouth ity o f capsule 15:46: every 6 [place] 50 (six) Medical hours as Branch needed for Allergies. Cholecalcif 2022-0 Yes 1000U Take 1,000 [facility] stevan, 9-18 Units by ity of Vitamin D3, 15:46: mouth [place] 25 mcg 50 daily. Medical (1,000 Branch unit) capsule metoprolol 2022-0 Yes 100mg Take 100 Un lucy tartrate 25 9-18 mg by ity of mg tablet 15:46: mouth in [place] 50 the Medical morning Branch and 100 mg in the evening. B Complex 2022-0 Yes Take by [employer] rs Vitamins 9-18 mouth. ity of tablet 15:46: [place] [address] Medical Branch diphenhydrA 2022-0 Yes 25mg Take 25 mg [facility] MINE 25 mg 9-18 by mouth ity o f capsule 15:46: every 6 [place] [address] (six) Medical hours as Branch needed for Allergies. Cholecalcif 2022-0 Yes 1000U Take 1,000 [facility] stevan, 9-18 Units by ity of Vitamin D3, 15:46: mouth [place] 25 mcg 50 daily. Medical (1,000 Branch unit) capsule metoprolol 2022-0 Yes 100mg Take 100 Un lucy tartrate 25 9-18 mg by ity of mg tablet 15:46: mouth in [place] 50 the Medical morning Branch and 100 mg in the evening. B Complex 2022-0 Yes Take by Unive rs Vitamins 9-18 mouth. ity of tablet 15:46: [place] [address] Medical Branch diphenhydrA 2022-0 Yes 25mg Take 25 mg [facility] MINE 25 mg 9-18 by mouth ity o f capsule 15:46: every 6 [place] 50 (six) Medical hours as Branch needed for Allergies. Cholecalcif 2022-0 Yes 1000U Take 1,000 [facility] stevan, 9-18 Units by ity of Vitamin D3, 15:46: mouth [place] 25 mcg 50 daily. Medical (1,000 Branch unit) capsule metoprolol 2022-0 Yes 100mg Take 100 Un lucy tartrate 25 9-18 mg by ity of mg tablet 15:46: mouth [place] 50 the Medical morning Branch and 100 mg in the evening. B Complex 2022-0 Yes Take by [employer] [facility] Vitamins 9-18 mouth. ity of tablet 15:46: [place] 50 Medical Branch Cholecalcif 2022-0 Yes 1000U Take 1,000 [facility] stevan, 9-18 Units by ity of Vitamin D3, 15:46: mouth [place] 25 mcg 50 daily. Medical (1,000 Branch unit) capsule metoprolol 2022-0 Yes 100mg Take 100 Un lucy tartrate 25 9-18 mg by ity of mg tablet 15:46: mouth [place] 50 the Medical morning Branch and 100 mg in the evening. B Complex 2-0 Yes Take by [employer] [facility] Vitamins 9-18 mouth. ity of tablet 15:46: [place] 50 Medical Branch Cholecalcif 2022-0 Yes 1000U Take 1,000 [facility] stevan, 9-18 Units by ity of Vitamin D3, 15:46: mouth [place] 25 mcg 50 daily. Medical (1,000 Branch unit) capsule metoprolol 2-0 Yes 100mg Take 100 Un lucy tartrate 25 9-18 mg by ity of mg tablet 15:46: mouth [place] 50 the Medical morning Branch and 100 mg in the evening. B Complex 2-0 Yes Take by [employer] Vitamins 9-18 mouth. ity of tablet 15:46: [place] 50 Medical Branch Cholecalcif 2022-0 Yes 1000U Take 1,000 [facility] stevan, 9-18 Units by ity of Vitamin D3, 15:46: mouth [place] 25 mcg 50 daily. Medical (1,000 Branch unit) capsule metoprolol 2022-0 Yes 100mg Take 100 Un lucy tartrate 25 9-18 mg by ity of mg tablet 15:46: mouth [place] 50 the Medical morning Branch and 100 mg in the evening. B Complex 2022-0 Yes Take by Unive rs Vitamins 9-18 mouth. ity of tablet 15:46: [address] Branch Cholecalcif 2021-0 Yes 1000U Take 1,000 [facility] stevan, 9-18 Units by ity of Vitamin D3, 15:46: mouth [place] 25 mcg 50 daily. Medical (1,000 Branch unit) capsule metoprolol 2021-0 Yes 100mg Take 100 Un lucy tartrate 25 9-18 mg by ity of mg tablet 15:46: mouth in [facility] 50 the Medical morning Branch and 100 mg in the evening. B Complex 2021-0 Yes Take by [employer] Vitamins 9-18 mouth. ity of tablet 15:46: [address] Branch Cholecalcif 2021-0 Yes 1000U Take 1,000 [facility] stevan, 9-18 Units by ity of Vitamin D3, 15:46: mouth [place] 25 mcg 50 daily. Medical (1,000 Branch unit) capsule metoprolol 2021-0 Yes 100mg Take 100 Un lucy tartrate 25 9-18 mg by ity of mg tablet 15:46: mouth in [place] [address] the Medical morning Branch and 100 mg in the evening. B Complex 0 Yes Take by [employer] Vitamins 9-18 mouth. ity of tablet 15:46: [address] Branch Cholecalcif 2021-0 Yes 1000U Take 1,000 [facility] stevan, 9-18 Units by ity of Vitamin D3, 15:46: mouth [place] 25 mcg 50 daily. Medical (1,000 Branch unit) capsule metoprolol 2021-0 Yes 100mg Take 100 Un lucy tartrate 25 9-18 mg by ity of mg tablet 15:46: mouth in [place] [address] the Medical morning Branch and 100 mg in the evening. B Complex 2021-0 Yes Take by [employer] Vitamins 9-18 mouth. ity of tablet 15:46: [address] Branch Cholecalcif 2021-0 Yes 1000U Take 1,000 [facility] stevan, 9-18 Units by ity of Vitamin D3, 15:46: mouth [place] 25 mcg 50 daily. Medical (1,000 Branch unit) capsule metoprolol 2021-0 Yes 100mg Take 100 Un lucy tartrate 25 9-18 mg by ity of mg tablet 15:46: mouth in [facility] 50 the Medical morning Branch and 100 mg in the evening. B Complex Yes Take by Unive rs Vitamins - mouth. ity of tablet 15:46: [place] 50 Medical Branch gabapentin 2021- No 300mg Take 300 U nivers (NEURONTIN) 12-1618 mg by ity of 300 mg 12:47: 00:00 mouth 3 [place] capsule 26 :00 (three) Medical times Branch daily. escitalopra 2021- No 20mg Take 20 mg Univers m oxalate 12-16 by mouth ity o f (LEXAPRO) 12:47: 00:00 daily. [place] 20 mg 26 :00 Medical tablet Branch risperiDONE 2021- No 2mg Take 2 mg Univers 2 mg tablet 12-16 by mouth ity of 12:47: 00:00 daily. [place] 26 :00 Medical Branch OLANZapine 2021- No 10mg Take 10 mg Univers (ZYPREXA) 12-16 by mouth ity o f 20 mg 12:47: 00:00 at [place] tablet 26 :00 bedtime. Medical Branch oxybutynin 2021- No 5mg Take 5 mg U nivers chloride 5 12-16 by mouth 2 it y of mg tablet 12:47: 00:00 (two) [place] 26 :00 times Medical daily. Branch ferrous 2021- No 325mg Take 325 Univ ers sulfate 325 12-16 mg by ity of mg (65 mg 12:47: 00:00 mouth [place] iron) SR 26 :00 daily with Medic al capsule breakfast. Branch furosemide 2021- No [id number] 40mg Take 1 [facility] 40 mg -18 10-19 tablet by ity of tablet 00:00: 04:59 mouth [place] 00 :00 every Medical morning Branch and evening for 30 days. furosemide 2021- No [id number] 40mg Take 1 [facility] 40 mg 9-18 10-19 tablet by ity of tablet 00:00: 04:59 mouth [place] 00 :00 every Medical morning Branch and evening for 30 days. furosemide 2021- No [id number] 40mg Take 1 [facility] 40 mg 9-18 10-19 tablet by ity of tablet 00:00: 04:59 mouth [place] 00 :00 every Medical morning Branch and evening for 30 days. furosemide 2021- No [id number] 40mg Take 1 [facility] 40 mg 9-18 10-19 tablet by ity of tablet 00:00: 04:59 mouth [place] 00 :00 every Medical morning Branch and evening for 30 days. furosemide 2021- No [id number] 40mg Take 1 [facility] 40 mg 9-18 10-19 tablet by ity of tablet 00:00: 04:59 mouth [place] 00 :00 every Medical morning Branch and evening for 30 days. furosemide 2021- No [id number] 40mg Take 1 [facility] 40 mg 9-18 10-19 tablet by ity of tablet 00:00: 04:59 mouth [place] 00 :00 every Medical morning Branch and evening for 30 days. furosemide 2021- No [id number] 40mg Take 1 [facility] 40 mg 9-18 10-19 tablet by ity of tablet 00:00: 04:59 mouth [place] 00 :00 every Medical morning Branch and evening for 30 days. furosemide 2021- No [id number] 40mg Take 1 [facility] 40 mg 9-18 10-19 tablet by ity of tablet 00:00: 04:59 mouth [place] 00 :00 every Medical morning Branch and evening for 30 days. furosemide 2021- No [id number] 40mg Take 1 [facility] 40 mg 9-18 10-19 tablet by ity of tablet 00:00: 04:59 mouth [place] 00 :00 every Medical morning Branch and evening for 30 days. furosemide 2021- No [id number] 40mg Take 1 [facility] 40 mg 9-18 10-19 tablet by ity of tablet 00:00: 04:59 mouth [place] 00 :00 every Medical morning Branch and evening for 30 days. furosemide 2021- No [id number] 40mg Take 1 [facility] 40 mg 9-18 10-19 tablet by ity of tablet 00:00: 04:59 mouth [place] 00 :00 every Medical morning Branch and evening for 30 days. donepeziL Yes 5mg 5 mg, Univers (ARICEPT) 9-17 Oral, QHS, ity of tablet 5 mg 02:00: First dose [place] 00 on Fri Medical 12/14/21 at Branch 2100, Until Discontinu ed, Routine atorvastati Yes 40mg 40 mg, Univ ers n (LIPITOR) 9-17 Oral, QHS, it y of tablet 40 02:00: First dose [place] mg 00 on Fri Medical 12/14/21 at Branch 2100, Until Discontinu ed, Routine nitrofurant 2021- No 100mg 100 mg, U nivers oin 12-15 09-24 Oral, QHS, ity of (MACRODANTI 02:00: 01:59 7 doses, [place] N) capsule 00 :00 First dose Med ical 100 mg on Fri Branch 12/14/21 at 2100, Last dose on [place] 12/20/21 at 2100, Routine
Reason for Anti-Infec tive: Empiric Non-Surgic al Prophylaxi s
Durat ion of therapy: 5 days amLODIPine Yes 5mg 5 mg, Univer s (NORVASC) 12-14 Oral, ity of tablet 5 mg 20:45: DAILY, [place] 00 First dose Medical on Fri Branch 12/14/21 at 1545, Until Discontinu ed, Routine acetaminoph 0 Yes 650mg 650 mg, Un lucy en 12-14 Oral, ity of (TYLENOL) 20:39: Q6HPRN, [place] tablet 650 41 Starting Medic al mg on Fri Branch 12/14/21 at 1539, Until Discontinu ed, Routine, Pain (scale 4-6) traMADoL Yes 50mg 50 mg, Univers (ULTRAM) 12-14 Oral, ity of tablet 50 20:39: Q6HPRN, [place] mg 08 Starting Medical on Fri Branch 12/14/21 at 1539, Until Discontinu ed, Routine, Pain (scale 7-10) Saline 0 Yes [id number] 6mL 6 mL, Univer s Bubble 12-14 Injection, ity of Study 14:05: SEE-INSTRU [place] 53 CTIONS, Medical Starting Branch on Fri12/14/21 at 0905, Until Discontinu ed, Routine citalopram Yes 20mg 20 mg, Unive rs (CELEXA) -16 Oral, ity of tablet 20 14:00: DAILY, [place] mg 00 First dose Medical on Fri Branch 12/14/21 at 0900, Until Discontinu ed, Routine enoxaparin 2021-0 Yes 40mg 40 mg, Unive rs (LOVENOX) 16 Subcutaneo ity of injection 14:00: us, Q24H, [place] 40 mg 00 First dose Medical on Fri Branch 12/14/21 at 0900, Until Discontinu ed, Routine ergocalcife 2021-0 Yes [id number] 50,000 Un lucy rol 12-14 Units, ity of (vitamin 14:00: Oral, [place] d2) 00 QWEEKLY, Medical (CALCIFEROL First dose Br anch ) capsule on Fri 50,000 12/14/21 at Units 0900, Until Discontinu ed, Routine pantoprazol 2021-0 Yes 40mg 40 mg, Univ ers e 16 Oral, ity of (PROTONIX) 14:00: DAILY, [place] EC tablet 00 First dose Medi manny 40 mg on Fri Branch 12/14/21 at 0900, Until Discontinu ed, Routine lactobacill 2021-0 Yes .5mg 0.5 mg, Uni vers us 12-14 Oral, BID, ity of acidophilus 13:00: First dose [place] tablet 0.5 00 on Fri Medical mg 12/14/21 at Branch 0800, Until Discontinu ed, Routine metoprolol 2021-0 Yes 100mg 100 mg, Uni vers tartrate 16 Oral, BID, ity o f (LOPRESSOR) 13:00: First dose [place] tablet 100 00 on Fri Medical mg 12/14/21 at Branch 0800, Until Discontinu ed, Routine carbidopa-l 2021-0 Yes 1{tbl} 1 tablet, Univers evodopa 16 Oral, TID, ity of (SINEMET-25 13:00: First dose [place] /100) 00 on Fri Medical 25-100 mg 12/14/21 at [facility] tablet 1 0800, tablet Until Discontinu ed, Routine furosemide 2021-0 Yes 20mg 20 mg, Unive rs (LASIX) -16 Slow IV ity of injection 13:00: Push, TID, [place] 20 mg 00 First dose Medical (after Branch last reorder) on Fri12/14/21 at 0800, Until Discontinu ed, ARELI levothyroxi 2021-0 Yes 100ug 100 mcg, U nivers ne 12-14 Oral, ity of (SYNTHROID) 11:00: QAM-0600, [place] tablet 100 00 First dose Med ical mcg on Fri Branch 12/14/21 at 0600, Until Discontinu ed, Routine cloNIDine No .1mg 0.1 mg, [facility] ers (CATAPRES) 12-14 Oral, ity of tablet 0.1 01:30: 01:33 ONCE, 1 [place] mg 00 :00 dose, On Medical [place] Branch 12/13/21 at 2030, STAT pantoprazol Yes 40mg Take 40 mg [place] e 12-14 by mouth. [place] (PROTONIX) 00:00: of 40 MG 00 Medicin tablet e pantoprazol Yes 40mg Take 40 mg [facility] e 12-14 by mouth. [place] (PROTONIX) 00:00: of 40 MG 00 Medicin tablet e acetaminoph No 650mg 650 mg, U nivers en 12-14 Oral, ity of (TYLENOL) 00:00: 00:02 ONCE, 1 [place] tablet 650 00 :00 dose, On Medic al mg [facility] Branch 12/13/21 at 1900, ARELI metoprolol No 25mg 25 mg, [facility] tartrate 12-14 Oral, ity of (LOPRESSOR) 00:00: 23:29 ONCE, 1 [place] tablet 25 00 :00 dose, On Medica l mg [facility] Branch 12/13/21 at 1900, Routine furosemide No 40mg 40 mg, IV U nivers (LASIX) 12-13 Push, ity of injection 22:30: 22:49 ONCE, 1 [place] 40 mg 00 :00 dose, On [facility] Branch 12/13/21 at 1730, ARELI iopamidol 2021- No [id number] 74mL 74 mL, U nivers (ISOVUE 12-13 Intravenou ity o f 370-500 mL) 22:30: 22:30 s, ONCE, 1 [place] injection 00 :00 dose, On Medica l 74 mL [place] Branch 12/13/21 at 1730, Routine famotidine 2021- No 20mg 20 mg, Univ ers (PEPCID 12-13 Slow IV ity of (PF)) 21:00: 20:28 Push, [place] injection 00 :00 ONCE, 1 Medical 20 mg dose, On Branch [place] 12/13/21 at 1600, Routine maalox:diph 2021- No 15mL 15 mL, Uni vers enhydrAMINE 12-13 Oral, ity of :lidocaine 20:00: 20:28 ONCE, 1 [place] 2 % viscous 00 :00 dose, On Medi manny 1:1:1 [place] Branch (FIRST-MOUT 12/13/21 at [facility]) 1500, oral Routine suspension 15 mL donepezil Yes 5mg Take 5 mg [place] inga (ARICEPT) 5 11-28 by mouth Roseanna ege MG tablet 09:50: nightly. of 56 Medicin e olanzapine 2021- No 1{tbl} 1 Tablet. [facility] (ZYPREXA) 5 11-28 College MG tablet 09:50: 00:00 of 55 :00 Medicin e Mirabegron 2021- No 1{tbl} 1 Tablet. [facility] ER 11-28 College (MYRBETRIQ) 09:50: 00:00 of 25 MG TB24 37 :00 Medicin e diphenhydrA 2021- No 25mg Take 25 mg [facility] MINE 11-28 by mouth College (BENADRYL) 09:50: 00:00 every 6 of 25 MG 31 :00 hours as Medicin tablet needed for e Sleep. acetaminoph 2021- No Every 6 [facility] en-codeine 11-28 hours. Colleg e (TYLENOL 09:50: 00:00 of #3) 300-30 25 :00 Medicin MG per e tablet atorvastati Yes [id number] TAKE 1 [facility] n (LIPITOR) 11-28 TABLET BY Col lege 40 MG 00:00: MOUTH of tablet 00 EVERYDAY Medicin AT BEDTIME e metoprolol Yes [id number] 100mg Take 1 [facility] (LOPRESSOR) 8-31 Tablet by Col lege 100 MG 00:00: mouth two of tablet 00 times Medicin daily. e atorvastati 2021-0 Yes [id number] TAKE 1 [facility] n (LIPITOR) 8-31 TABLET BY Col lege 40 MG 00:00: MOUTH of tablet 00 EVERYDAY Medicin AT BEDTIME e metoprolol 2021-0 Yes [id number] 100mg Take 1 [facility] (LOPRESSOR) 8-31 Tablet by Col lege 100 MG 00:00: mouth two of tablet 00 times Medicin daily. e atorvastati 2021-0 Yes [id number] TAKE 1 [place] n (LIPITOR) 8-31 TABLET BY Col lege 40 MG 00:00: MOUTH of tablet 00 EVERYDAY Medicin AT BEDTIME e metoprolol 2021-0 Yes [id number] 100mg Take 1 [facility] (LOPRESSOR) 8-31 Tablet by Col lege 100 MG 00:00: mouth two of tablet 00 times Medicin daily. e carbidopa-l 2021-0 Yes TAKE 1 [place] evodopa 8-18 TABLET BY [place] (SINEMET, 00:00: MOUTH of DHIVY) 00 TWICE A Medicin 25-100 MG DAY FOR 30 e per tablet DAYS carbidopa-l 2021-0 Yes TAKE 1 [place] [facility] evodopa 8-18 TABLET BY [place] (SINEMET, 00:00: MOUTH of DHIVY) 00 TWICE A Medicin 25-100 MG DAY FOR 30 e per tablet DAYS carbidopa-l 2021-0 Yes TAKE 1 [place] evodopa 8-18 TABLET BY [place] (SINEMET, 00:00: MOUTH of DHIVY) 00 TWICE A Medicin 25-100 MG DAY FOR 30 e per tablet DAYS Macrobid Macrobid 0 2021- No QD Macrobid 100 MG 100 MG 10-29 100 MG 00:00: 00:00 00 :00 Macrobid Macrobid 2021-0 2021- No QD Macrobid 100 MG 100 MG 10-29 100 MG 00:00: 00:00 00 :00 Macrobid Macrobid 2021-0 2021- No QD Macrobid 100 MG 100 MG 10-29 100 MG 00:00: 00:00 00 :00 Macrobid Macrobid 2021-0 2022- No QD Macrobid 100 MG 100 MG 10-29 100 MG 00:00: 00:00 00 :00 Macrobid Macrobid 2021-0 2022- No QD Macrobid 100 MG 100 MG 10-29 100 MG 00:00: 00:00 00 :00 Macrobid Macrobid 2021-0 2022- No QD Macrobid 100 MG 100 MG 10-29 100 MG 00:00: 00:00 00 :00 Macrobid Macrobid 2021-0 2022- No QD Macrobid 100 MG 100 MG 10-29 100 MG 00:00: 00:00 00 :00 Macrobid Macrobid 2021-0 2- No QD Macrobid 100 MG 100 MG 10-29 100 MG 00:00: 00:00 00 :00 Macrobid Macrobid 2021-0 2022- No QD Macrobid 100 MG 100 MG 10-29 100 MG 00:00: 00:00 00 :00 Macrobid Macrobid 2021-0 2022- No QD Macrobid 100 MG 100 MG 10-29 100 MG 00:00: 00:00 00 :00 Macrobid Macrobid 2021-0 2022- No QD Macrobid 100 MG 100 MG 10-29 100 MG 00:00: 00:00 00 :00 Bactrim DS Bactrim DS 0 2- No 1{table BID Bactrim DS 800-160 MG 800-160 MG 10-29 t} 800-160 MG 00:00: 00:00 00 :00 Bactrim DS Bactrim DS 2021-0 2022- No 1{table BID Bactrim DS 800-160 MG 800-160 MG 10-29 t} 800-160 MG 00:00: 00:00 00 :00 Bactrim DS Bactrim DS 2021-0 2- No 1{table BID Bactrim DS 800-160 MG 800-160 MG 10-29 t} 800-160 MG 00:00: 00:00 00 :00 chlorthalid 2021-0 2- No 25mg Take 1 [place] inga one 09-07 Tablet by [place] (HYGROTEN) 00:00: 00:00 mouth of 25 MG 00 :00 daily. Medicin tablet e metoprolol 2021- No [id number] TAKE 1 [facility] (LOPRESSOR) 08-31 TABLET BY [place] [facility] 100 MG 00:00: 00:00 MOUTH of tablet 00 :00 TWICE A Medicin DAY e meclizine 2021- No 25mg 25 mg, Unive rs (TRAVEL-EAS 08-26 Oral, ity of E 18:15: 17:10 ONCE, 1 [place] (MECLIZINE) 00 :00 dose, On Medi manny ) tablet 25 [place] Branch mg 08/26/21 at 1315, ARELI NaCl 0.9% 2021- No 1000mL at 999 Uni vers (NS) bolus 08-26 mL/hr, ity of infusion 17:30: 18:10 1,000 mL, [place] 1,000 mL 00 :00 IV [facility] Branch ONCE, 1 dose, On 08/26/21 at 1230, ARELI hydrochloro 2021- No TAKE 1 [facility] thiazide 08-24 CAPSULE BY Roseanna so (MICROZIDE) 11:14: 00:00 MOUTH of 12.5 MG 36 :00 EVERY DAY Medicin capsule e terbinafine 2021- No 1{tbl} 1 Tablet. [facility] (LAMISIL) 08-24 [place] 250 MG 10:16: 00:00 of tablet 21 :00 Medicin e Prenat-Meth 2021- No as [facility] ylfol-Chol- 08-24 directed Col lege Fish Oil 10:15: 00:00 of ( + 54 :00 Medicin COMPLETE e MULTI) 0.267 & 373 MG THPK acetaminoph Yes Every 6 [facility] en-codeine 08-24 hours. [place] (TYLENOL 09:56: of #3) 300-30 08 Medicin MG per e tablet Mirabegron Yes 1{tbl} 1 Tablet. [facility] ER 08-24 [place] (MYRBETRIQ) 09:56: of 25 MG TB24 08 Medicin e olanzapine Yes 1{tbl} 1 Tablet. [facility] (ZYPREXA) 5 5-27 College MG tablet 09:56: of 08 Medicin e diphenhydrA Yes 25mg Take 25 mg Jak MINE 5-27 by mouth [place] (BENADRYL) 09:52: every 6 of 25 MG 37 hours as Medicin tablet needed for e Sleep. donepezil Yes 5mg Take 5 mg [facility] (ARICEPT) 5 5-27 by mouth Roseanna ege MG tablet 09:52: nightly. of 37 Medicin e chlorthalid Yes 25mg Take 1 [facility] one 5-27 Tablet by [place] (HYGROTEN) 00:00: mouth of 25 MG 00 daily. Medicin tablet e Bactrim DS Bactrim DS 2021- No 1{table BID Bactrim DS 800-160 MG 800-160 MG 5-18 05-28 t} 800-160 MG 00:00: 00:00 00 :00 Bactrim DS Bactrim DS 2021-2021- No 1{table BID Bactrim DS 800-160 MG 800-160 MG 5-18 05-28 t} 800-160 MG 00:00: 00:00 00 :00 sulfamethox 2021-2021- No TAKE 1 [facility] azole-trime 5-18 -27 TABLET BY Co cr thoprim 00:00: 00:00 MOUTH of (BACTRIM 00 :00 TWICE A Medicin DS, SEPTRA DAY FOR 10 e DS) 800-160 DAYS MG per tablet nystatin Yes 1 [facility] (MYCOSTATIN 5-03 APPLICATIO Co llege ) cream 00:00: N TO of 00 AFFECTED Medicin AREA/ SKIN e FOLDS EXTERNALLY TWICE A DAY 30 DAYS triamcinolo Yes 1 [facility] ne 5-03 APPLICATIO [place] (KENALOG) 00:00: N TO of 0.1 % cream 00 AFFECTED Medi jose carlos AREA e NEEDED FOR ITCHING EXTERNALLY TWICE A DAY 30 DAYS nystatin 2021-0 2021- No 1 [facility] (MYCOSTATIN 5-03 11-28 APPLICATIO [facility]ton blair ) cream 00:00: 00:00 N TO of 00 :00 AFFECTED Medicin AREA/ SKIN e FOLDS EXTERNALLY TWICE A DAY 30 DAYS triamcinolo 2021- No 1 [facility] 00:00 N TO of 0.1 % cream 00 :00 AFFECTED Medi jose carlos AREA e NEEDED FOR ITCHING EXTERNALLY TWICE A DAY 30 DAYS Alfuzosin 2021- No 1 tablet [facility] HCl 10 MG 06-27 immediatel [facility] TB24 00:00: 04:59 y after of 00 :00 the same Medicin meal e Alfuzosin 2021- No 1 tablet [facility] HCl 10 MG 06-27 immediatel [facility] TB24 00:00: 04:59 y after of 00 :00 the same Medicin meal e Alfuzosin Alfuzosin 2021- No 1{table QD Alfuzosin HCl ER 10 HCl ER 10 06-27 t_immed HCl ER 10 MG MG 00:00: 00:00 iately_ MG 00 :00 after_t he_same _meal} Alfuzosin Alfuzosin 2021- No 1{table QD Alfuzosin HCl ER 10 HCl ER 10 06-27 t_immed HCl ER 10 MG MG 00:00: 00:00 iately_ MG 00 :00 after_t he_same _meal} Alfuzosin Alfuzosin 2021- No 1{table QD Alfuzosin HCl ER 10 HCl ER 10 06-27 t_immed HCl ER 10 MG MG 00:00: 00:00 iately_ MG 00 :00 after_t he_same _meal} Alfuzosin Alfuzosin 2021- No 1{table QD Alfuzosin HCl ER 10 HCl ER 10 06-27 t_immed HCl ER 10 MG MG 00:00: 00:00 iately_ MG 00 :00 after_t he_same _meal} Alfuzosin Alfuzosin 2021- No 1{table QD Alfuzosin HCl ER 10 HCl ER 10 06-27 t_immed HCl ER 10 MG MG 00:00: 00:00 iately_ MG 00 :00 after_t he_same _meal} Alfuzosin Alfuzosin 2021- No 1{table QD Alfuzosin HCl ER 10 HCl ER 10 06-27 t_immed HCl ER 10 MG MG 00:00: 00:00 iately_ MG 00 :00 after_t he_same _meal} Alfuzosin Alfuzosin 2021-2021- No 1{table QD Alfuzosin HCl ER 10 HCl ER 10 06-27 t_immed HCl ER 10 MG MG 00:00: 00:00 iately_ MG 00 :00 after_t he_same _meal} Alfuzosin Alfuzosin 2021-2021- No 1{table QD Alfuzosin HCl ER 10 HCl ER 10 06-27 t_immed HCl ER 10 MG MG 00:00: 00:00 iately_ MG 00 :00 after_t he_same _meal} Alfuzosin Alfuzosin 2021-2021- No 1{table QD Alfuzosin HCl ER 10 HCl ER 10 06-27 t_immed HCl ER 10 MG MG 00:00: 00:00 iately_ MG 00 :00 after_t he_same _meal} Alfuzosin Alfuzosin 2021-2021- No 1{table QD Alfuzosin HCl ER 10 HCl ER 10 06-27 t_immed HCl ER 10 MG MG 00:00: 00:00 iately_ MG 00 :00 after_t he_same _meal} Alfuzosin Alfuzosin 2021-0 2021- No 1{table QD Alfuzosin HCl ER 10 HCl ER 10 06-27 t_immed HCl ER 10 MG MG 00:00: 00:00 iately_ MG 00 :00 after_t he_same _meal} Alfuzosin Alfuzosin 2021-0 2- No 1{table QD Alfuzosin HCl ER 10 HCl ER 10 06-27 t_immed HCl ER 10 MG MG 00:00: 00:00 iately_ MG 00 :00 after_t he_same _meal} Alfuzosin Alfuzosin 2021-2021- No 1{table QD Alfuzosin HCl ER 10 HCl ER 10 06-27 t_immed HCl ER 10 MG MG 00:00: 00:00 iately_ MG 00 :00 after_t he_same _meal} Alfuzosin Alfuzosin 2021- No 1{table QD Alfuzosin HCl ER 10 HCl ER 10 06-27 t_immed HCl ER 10 MG MG 00:00: 00:00 iately_ MG 00 :00 after_t he_same _meal} Alfuzosin Alfuzosin 2021- No 1{table QD Alfuzosin HCl ER 10 HCl ER 10 06-27 t_immed HCl ER 10 MG MG 00:00: 00:00 iately_ MG 00 :00 after_t he_same _meal} Alfuzosin Alfuzosin 2021- No 1{table QD Alfuzosin HCl ER 10 HCl ER 10 06-27 t_immed HCl ER 10 MG MG 00:00: 00:00 iately_ MG 00 :00 after_t he_same _meal} Alfuzosin Alfuzosin 2021- No 1{table QD Alfuzosin HCl ER 10 HCl ER 10 06-27 t_immed HCl ER 10 MG MG 00:00: 00:00 iately_ MG 00 :00 after_t he_same _meal} Alfuzosin Alfuzosin 2021- No 1{table QD Alfuzosin HCl ER 10 HCl ER 10 06-27 t_immed HCl ER 10 MG MG 00:00: 00:00 iately_ MG 00 :00 after_t he_same _meal} hydrochloro 2021- No 12.5mg Take 12.5 [facility] thiazide 3-08 03-08 mg by [place] (HYDRODIURI 11:01: 00:00 mouth of L) 25 MG 55 :00 daily. Medicin tablet e Prenat-Meth Yes as Jak ylfol-Chol- 3-08 directed Roseanna ege Fish Oil 10:41: of ( + 59 Medicin COMPLETE e MULTI) 0.267 & 373 MG THPK diphenhydrA Yes 25mg Take 25 mg Jak MINE 3-08 by mouth [place] (BENADRYL) 10:41: every 6 of 25 MG 58 hours as Medicin tablet needed for e Sleep. donepezil 2022-0 Yes 5mg Take 5 mg [facility] (ARICEPT) 5 3-08 by mouth Roseanna ege MG tablet 10:41: nightly. of 58 Medicin e atorvastati 2021-0 Yes [id number] TAKE 1 [facility] n (LIPITOR) 3-08 TABLET BY [facility] 40 MG 00:00: MOUTH of tablet 00 EVERYDAY Medicin AT BEDTIME e metoprolol 2021-0 Yes [id number] TAKE 1 [facility] (LOPRESSOR) 3-08 TABLET BY [facility] 100 MG 00:00: MOUTH of tablet 00 TWICE A Medicin DAY e chlorthalid 2021-0 Yes 25mg Take 1 [facility] one 3-08 Tablet by [place] (HYGROTEN) 00:00: mouth of 25 MG 00 daily. Medicin tablet e atorvastati 2021-0 Yes [id number] TAKE 1 [facility] n (LIPITOR) 3-08 TABLET BY [facility] 40 MG 00:00: MOUTH of tablet 00 EVERYDAY Medicin AT BEDTIME e metoprolol 2021-0 Yes [id number] TAKE 1 [facility] (LOPRESSOR) 3-08 TABLET BY [facility] 100 MG 00:00: MOUTH of tablet 00 TWICE A Medicin DAY e atorvastati 2021-0 2022- No [id number] TAKE 1 Jak n (LIPITOR) 3-08 08-31 TABLET BY [facility]lege 40 MG 00:00: 00:00 MOUTH of tablet 00 :00 EVERYDAY Medicin AT BEDTIME e chlorthalid 2021-0 2022- No 25mg Take 1 [facility] one 3-08 05-27 Tablet by [place] [facility] 00:00: 00:00 mouth of 25 MG 00 :00 daily. Medicin tablet e Estradiol Estradiol 0 No Estradiol 0.1 MG/GM 0.1 MG/GM 3-04 0.1 MG/GM 00:00: 00 Estradiol Estradiol 2021-0 No Estradiol 0.1 MG/GM 0.1 MG/GM 3-04 0.1 MG/GM 00:00: 00 Estradiol Estradiol 2021-0 No Estradiol 0.1 MG/GM 0.1 MG/GM 3-04 0.1 MG/GM 00:00: 00 Estradiol Estradiol 2021-0 No Estradiol 0.1 MG/GM 0.1 MG/GM 3-04 0.1 MG/GM 00:00: 00 Estradiol Estradiol 2021-0 No Estradiol 0.1 MG/GM 0.1 MG/GM 3-04 0.1 MG/GM 00:00: 00 Estradiol Estradiol 2021-0 No Estradiol 0.1 MG/GM 0.1 MG/GM 3-04 0.1 MG/GM 00:00: 00 Estradiol Estradiol 2021-0 No Estradiol 0.1 MG/GM 0.1 MG/GM 3-04 0.1 MG/GM 00:00: Estradiol Estradiol 0 No Estradiol 0.1 MG/GM 0.1 MG/GM 3-04 0.1 MG/GM 00:00: 00 Estradiol Estradiol 2021-0 No Estradiol 0.1 MG/GM 0.1 MG/GM 3-04 0.1 MG/GM 00:00: 00 Estradiol Estradiol 0 No Estradiol 0.1 MG/GM 0.1 MG/GM 3-04 0.1 MG/GM 00:00: 00 Estradiol Estradiol 2021-0 No Estradiol 0.1 MG/GM 0.1 MG/GM 3-04 0.1 MG/GM 00:00: 00 Estradiol Estradiol 0 No Estradiol 0.1 MG/GM 0.1 MG/GM 3-04 0.1 MG/GM 00:00: 00 Estradiol Estradiol 0 No Estradiol 0.1 MG/GM 0.1 MG/GM 3-04 0.1 MG/GM 00:00: 00 Estradiol Estradiol 2021-0 No Estradiol 0.1 MG/GM 0.1 MG/GM 3-04 0.1 MG/GM 00:00: 00 Estradiol Estradiol 2021-0 No Estradiol 0.1 MG/GM 0.1 MG/GM 3-04 0.1 MG/GM 00:00: 00 Estradiol Estradiol 2021-0 No Estradiol 0.1 MG/GM 0.1 MG/GM 3-04 0.1 MG/GM 00:00: 00 Estradiol Estradiol 0 No Estradiol 0.1 MG/GM 0.1 MG/GM 3-04 0.1 MG/GM 00:00: 00 Estradiol Estradiol 0 No Estradiol 0.1 MG/GM 0.1 MG/GM 3-04 0.1 MG/GM 00:00: 00 Estradiol Estradiol 2021-0 No Estradiol 0.1 MG/GM 0.1 MG/GM 3-04 0.1 MG/GM 00:00: 00 Estradiol Estradiol No Estradiol 0.1 MG/GM 0.1 MG/GM 3-04 0.1 MG/GM 00:00: 00 Estradiol Estradiol No Estradiol 0.1 MG/GM 0.1 MG/GM 3-04 0.1 MG/GM 00:00: 00 Estradiol Estradiol 0 No Estradiol 0.1 MG/GM 0.1 MG/GM 3-04 0.1 MG/GM 00:00: 00 Estradiol Estradiol 0 No Estradiol 0.1 MG/GM 0.1 MG/GM 3-04 0.1 MG/GM 00:00: 00 estradiol Yes Jak (ESTRACE) 3-04 [place] 0.1 MG/GM 00:00: of vaginal 00 Medicin cream e estradiol 2021- No [facility] (ESTRACE) 3-04 08-31 [place] 0.1 MG/GM 00:00: 00:00 of vaginal 00 :00 Medicin cream e nitrofurant Yes TAKE 1 [facility] oin, 2-28 CAPSULE BY [facility] 00:00: MOUTH of l-monohydra 00 EVERY 12 Medi jose carlos te, HOURS WITH e (MACROBID) FOOD FOR 7 100 MG DAYS capsule nitrofurant Yes TAKE 1 [facility] oin, 2-28 CAPSULE BY [facility] 00:00: MOUTH of l-monohydra 00 EVERY 12 Medi jose carlos te, HOURS WITH e (MACROBID) FOOD FOR 7 100 MG DAYS capsule nitrofurant Yes 100mg Take 100 [facility] oin, 2-28 mg by [facility] 00:00: mouth of l-monohydra 00 daily. For Me dicin te, suppressiv e (MACROBID) e abx 100 MG coverage - capsule started in 08/2021 nitrofurant Yes 100mg Take 100 [facility] oin, 2-28 mg by [facility] 00:00: mouth of l-monohydra 00 daily. For Me dicin te, suppressiv e (MACROBID) e abx 100 MG coverage - capsule started in 08/2021 predniSONE 2021- No 2 TABLETS [facility] (DELTASONE) 05-28-27 DAILYX 5 [facility]ge 10 MG 00:00: 00:00 DAYS THEN of tablet 00 :00 1 TABLET Medicin DAILY X 5 e DAYS WITH FOOD /MILK ORALLY ONCE A DAY Macrobid Macrobid 2021- No 1{capsu BID Macrobid 100 MG 100 MG 05-28 le_with 100 MG 00:00: 00:00 _food} 00 :00 Macrobid Macrobid 2021- No 1{capsu BID Macrobid 100 MG 100 MG 05-28 le_with 100 MG 00:00: 00:00 _food} 00 :00 Macrobid Macrobid 2021- No 1{capsu BID Macrobid 100 MG 100 MG 05-28 le_with 100 MG 00:00: 00:00 _food} 00 :00 Macrobid Macrobid 2021- No 1{capsu BID Macrobid 100 MG 100 MG 05-28 le_with 100 MG 00:00: 00:00 _food} 00 :00 predniSONE predniSONE 2021- No QD predniSONE 10 MG 10 MG 05-28 10 MG 00:00: 00:00 00 :00 predniSONE predniSONE 2021- No QD predniSONE 10 MG 10 MG 05-28 10 MG 00:00: 00:00 00 :00 predniSONE predniSONE 2021-2021- No QD predniSONE 10 MG 10 MG 05-28 10 MG 00:00: 00:00 00 :00 predniSONE predniSONE 2021- No QD predniSONE 10 MG 10 MG 05-28 10 MG 00:00: 00:00 00 :00 metoprolol 2021- No [id number] TAKE 1 [facility] (LOPRESSOR) 05-22 TABLET BY [facility]lege 100 MG 00:00: 00:00 MOUTH of tablet 00 :00 TWICE A Medicin DAY e atorvastati 2021- No [id number] TAKE 1 Jak n (LIPITOR) 05-18 TABLET BY Co llege 40 MG 00:00: 00:00 MOUTH of tablet 00 :00 EVERYDAY Medicin AT BEDTIME e Ciprofloxac Ciprofloxac 2020-03- No 1{table BID Ciprofloxa in HCl 500 in HCl 500 0-15 10-20 t} jose carlos HCl MG MG 00:00: 00:00 500 MG 00 :00 atorvastati 2020- No 40mg Take 40 mg Jak n (LIPITOR) 07-12 by mouth [facility] 40 MG 17:24: 00:00 at of tablet 11 :00 bedtime. Medicin e Prenat-Meth Yes as Jak ylfol-Chol- 07-12 directed Roseanna ege Fish Oil 16:56: of ( + 40 Medicin COMPLETE e MULTI) 0.267 & 373 MG THPK donepezil Yes 5mg Take 5 mg [facility] (ARICEPT) 5 07-12 by mouth Roseanna ege MG tablet 16:56: nightly. of 40 Medicin e diphenhydrA Yes 25mg Take 25 mg Jak MINE 07-12 by mouth [place] (BENADRYL) 16:53: every 6 of 25 MG 43 hours as Medicin tablet needed for e Sleep. lisinopril 2020- No 10mg Take 10 mg Jak (PRINIVIL, 07-12 by mouth Roseanna ege ZESTRIL) 10 16:52: 00:00 daily. of MG tablet 48 :00 Medicin e gabapentin 2020- No 300mg Take 300 [facility] (NEURONTIN) 07-12 mg by Annabelg e 300 MG 16:52: 00:00 mouth 3 of capsule 15 :00 times Medicin daily. e escitalopra 2020- No 20mg Take 20 mg Jak m (LEXAPRO) 07-12 by mouth [facility] 20 MG 16:52: 00:00 daily. of tablet 06 :00 Medicin e Cholecalcif 2020- No Take by Kurt georges stevan 07-12 mouth. [place] (VITAMIN 16:51: 00:00 of D3) 1000 48 :00 Medicin UNITS TABS e amlodipine 2020- No 5mg Take 5 mg [facility] (NORVASC) 5 4-14 04-14 by mouth Col [facility] MG tablet 16:51: 00:00 daily. of 32 :00 Medicin e hydrochloro Yes 12.5mg Take 12.5 Jak thiazide 4-14 mg by [place] (HYDRODIURI 16:47: mouth of L) 25 MG 54 daily. Medicin tablet e atorvastati Yes [id number] 40mg Take 1 Jak n (LIPITOR) 4-14 Tablet by [facility] 40 MG 00:00: mouth at of tablet 00 bedtime. Medicin e metoprolol Yes [id number] 100mg Take 1 [facility] (LOPRESSOR) 4-14 Tablet by Col [facility] 100 MG 00:00: mouth two of tablet 00 times Medicin daily. e metoprolol 2020- No 100mg Take 100 [facility] (LOPRESSOR) 4-13 04-14 mg by Colleg e 100 MG 00:00: 00:00 mouth two of tablet 00 :00 times Medicin daily. e Terbinafine Terbinafine 2020- No [facility] [place] 1 tablet Common HCl HCl 9-17 03-08 [facility] 00:00: 00:00 - [facility] 00 :00 [facility] CARBIDOPA-L 2018-03 Yes TAKE 1 Univ [...] tablet 00 TIMES A Medical DAY Branch CARBIDONC-L 2018-03 Yes TAKE 1 Univ ers EVODOPA 1-11 TABLET BY ity of 25-100 mg 00:00: MOUTH FOUR [place] tablet 00 TIMES A Medical DAY Branch [facility] Yes TAKE 1 Univ ers EVODOPA [...] tablet 00 TIMES A Medical DAY Branch [facility] Yes TAKE 1 Univ ers EVODOPA 1-11 TABLET BY ity of 25-100 mg 00:00: MOUTH FOUR [place] tablet 00 TIMES A Medical DAY Branch [facility] Yes TAKE 1 Univ ers EVODOPA 1-11 TABLET BY ity of 25-100 mg 00:00: MOUTH FOUR [place] tablet 00 TIMES A Medical DAY Branch [facility]-03 Yes TAKE 1 Univ ers EVODOPA 1-11 TABLET BY ity of 25-100 mg 00:00: MOUTH FOUR [place] tablet 00 TIMES A Medical DAY Branch [facility] 2018-03 Yes TAKE 1 Univ ers EVODOPA 1-11 TABLET BY ity of 25-100 mg 00:00: MOUTH FOUR [place] tablet 00 TIMES A Medical DAY Branch [facility] 2018-03 Yes TAKE 1 Univ ers EVODOPA [...] tablet 00 TIMES A Medical DAY Branch [facility] 2018-03 Yes TAKE 1 Univ ers EVODOPA 1-11 TABLET BY ity of 25-100 mg 00:00: MOUTH FOUR [place] tablet 00 TIMES A Medical DAY Branch [facility]-03 Yes TAKE 1 Univ ers EVODOPA 1-11 TABLET BY ity of 25-100 mg 00:00: MOUTH FOUR [place] tablet 00 TIMES A Medical DAY Branch [facility] 2018-03 Yes TAKE 1 Univ ers EVODOPA 1-11 TABLET BY ity of 25-100 mg 00:00: MOUTH FOUR [place] tablet 00 TIMES A Medical DAY Branch [facility] 2018-03- No TAKE 1 Uni vers EVODOPA 1-11 -21 TABLET BY ity of 25-100 mg 00:00: 00:00 MOUTH FOUR [place] tablet 00 :00 TIMES A Medical DAY Branch [facility] 2018-03- No TAKE 1 Uni vers EVODOPA -01 30-21 TABLET BY ity of 25-100 mg 00:00: 00:00 MOUTH FOUR [place] tablet 00 :00 TIMES A Medical DAY Branch escitalopra 2017-03 [...] 20:26: [place] tablet 35 Medical Branch diphenhydrA 2018-1 [...] capsule B Complex 2017-03 Yes Take by Univ ers Vitamins (B 1-16 mouth. ity of COMPLEX [...] (two) [place] 36 times Medical daily. Branch escitalopra 2017-03 Yes 20mg Take 20 mg Univers m oxalate 1-16 by mouth ity of (LEXAPRO) 14:29: daily. [place] 20 mg 27 Medical tablet Branch escitalopra 2017-03 Yes 20mg Take 20 mg Univers m oxalate 1-16 by mouth ity of (LEXAPRO) 14:29: daily. [place] 20 mg 27 Medical tablet Branch escitalopra 2017-03 Yes 20mg Take 20 mg Univers m oxalate 1-16 by mouth ity of (LEXAPRO) 14:29: daily. [place] 20 mg 27 Medical tablet Branch metoprolol [...] ity of 2 mg tablet 14:21: daily. [facility] s 36 Medical Branch pantoprazol 2017-03 Yes [...] ity of 2 mg tablet 14:21: daily. [facility] 36 [facility] pantoprazol 2017-03 Yes 40mg Take 40 mg [...] ity of 2 mg tablet 14:21: daily. [address] pantoprazol 2017-03 Yes 40mg Take 40 mg Univers e 1-16 by mouth 2 ity of (PROTONIX) 14:21: (two) [place] 40 mg EC 36 times Medical tablet daily. Branch oxybutynin 2020- No TAKE 1 [facility] (DITROPAN) 11-04 TABLET Colleg e 5 MG tablet 00:00: 00:00 EVERY of 00 :00 MORNING Medicin e rivastigmin 2020- No [facility] (EXELON) 10-27 College 1.5 MG 00:00: 00:00 of capsule [...] metoprolol 2020- No 25mg Take 25 mg [facility] (LOPRESSOR) 04-29 by mouth Col lege 25 MG 00:00: 00:00 two times of tablet 00 :00 daily. Medicin e galantamine 2020- No [id number] TK 1 T PO [facility] (REMINYL) 4 08-06 BID College MG tablet 00:00: 00:00 of 00 :00 Medicin e nitrofurant 2020- No [id number] TK ONE C [facility] oin 08-06 PO [facility] (MACRODANTI 00:00: 00:00 of N) 50 MG 00 :00 Medicin capsule e olanzapine 2020- No [id number] TK 1/2 T [facility] (ZYPREXA) 07-24 PO [facility] College 20 MG 00:00: 00:00 of tablet 00 :00 Medicin e levothyroxi Yes [id number] TK 1 T PO [facility] ne 3-02 QD College (SYNTHROID) 00:00: of 112 MCG 00 Medicin tablet e levothyroxi Yes [id number] TK 1 T PO [facility] 3-02 QD [place] (SYNTHROID) 00:00: of 112 MCG 00 Medicin tablet e levothyroxi Yes [id number] TK 1 T PO [facility] 3-02 QD [place] (SYNTHROID) 00:00: of 112 MCG 00 Medicin tablet e levothyroxi Yes [id number] TK 1 T PO [facility] 3-02 QD [place] (SYNTHROID) 00:00: of 112 MCG 00 Medicin tablet e levothyroxi Yes [id number] TK 1 T PO [facility] 3-02 QD [place] (SYNTHROID) 00:00: of 112 MCG 00 Medicin tablet e levothyroxi Yes [id number] TK 1 T PO [facility] 3-02 QD [place] (SYNTHROID) 00:00: of 112 MCG 00 Medicin tablet e KCL 20 mEq 2015-03 Yes Univers tablet 2-21 ity of 00:00: [place] [facility] KCL 20 mEq 2015-03 Yes Univers tablet 2-21 ity of 00:00: [place] [facility] KCL 20 mEq 2015-03 Yes Univers tablet 2-21 ity of 00:00: [place] [facility] KCL 20 mEq 2015-03 Yes Univers tablet 2-21 ity of 00:00: [place] [facility] KCL 20 mEq 2015-03 Yes Univers tablet 2-21 ity of 00:00: [place] [facility] KCL 20 mEq 2015-032- No Univer s tablet 2-21 -18 ity of 00:00: 00:00 [place] 00 :00 [facility] galantamine 2015-03 Yes TK 1 T PO U nivers 4 mg tablet 2-20 BID ity of 00:00: [place] [facility] levothyroxi 2015-03 Yes TK 1 T PO U nivers ne 100 mcg 2-20 QD ity of tablet 00:00: [place] [facility] galantamine 2015-03 Yes TK 1 T PO U nivers 4 mg tablet 2-20 BID ity of 00:00: [place] [facility] levothyroxi 2015-03 Yes TK 1 T PO U nivers ne 100 mcg 2-20 QD ity of tablet 00:00: [place] [facility] levothyroxi 2015-03 Yes TK 1 T PO U nivers ne 100 mcg 2-20 QD ity of tablet 00:00: [place] [facility] galantamine 2016 Yes TK 1 T PO U nivers 4 mg tablet 2-20 BID ity of 00:00: [place] [facility] levothyroxi 2015-03 Yes TK 1 T PO U nivers ne 100 mcg 2-20 QD ity of tablet 00:00: [place] [facility] levothyroxi 2015-03 Yes TK 1 T PO U nivers ne 100 mcg 2-20 QD ity of tablet 00:00: [place] [facility] levothyroxi 2015-03 Yes TK 1 T PO U nivers ne 100 mcg 2-20 QD ity of tablet 00:00: [address] levothyroxi 2015-03 Yes TK 1 T PO U nivers ne 100 mcg 2-20 QD ity of tablet 00:00: [place] [facility] levothyroxi 2015-03 Yes TK 1 T PO U nivers ne 100 mcg 2-20 QD ity of tablet 00:00: [address] levothyroxi 2015-03 Yes TK 1 T PO U nivers ne 100 mcg 2-20 QD ity of tablet 00:00: [address] levothyroxi 2015-03 Yes TK 1 T PO U nivers ne 100 mcg 2-20 QD ity of tablet 00:00: [address] levothyroxi 2015-03 Yes TK 1 T PO U nivers ne 100 mcg 2-20 QD ity of tablet 00:00: [address] galantamine 2015-03 Yes TK 1 T PO U nivers 4 mg tablet 2-20 BID ity of 00:00: [place] [facility] levothyroxi 2015-03 Yes TK 1 T PO U nivers ne 100 mcg 2-20 QD ity of tablet 00:00: [address] levothyroxi 2015-03 Yes TK 1 T PO U nivers ne 100 mcg 2-20 QD ity of tablet 00:00: [place] [facility] levothyroxi 2015-03 Yes TK 1 T PO U nivers ne 100 mcg 2-20 QD ity of tablet 00:00: [address] levothyroxi 2015-03 Yes TK 1 T PO U nivers ne 100 mcg 2-20 QD ity of tablet 00:00: [address] levothyroxi 2016-1 Yes TK 1 T PO U nivers ne 100 mcg 2-20 QD ity of tablet 00:00: [place] 00 [facility] levothyroxi 2015-03 Yes TK 1 T PO U nivers ne 100 mcg 2-20 QD ity of tablet 00:00: [place] [facility] levothyroxi 2015-03 Yes TK 1 T PO U nivers ne 100 mcg 2-20 QD ity of tablet 00:00: [place] [facility] levothyroxi 2015-03 Yes TK 1 T PO U nivers ne 100 mcg 2-20 QD ity of tablet 00:00: [place] [facility] levothyroxi 2015-03 Yes TK 1 T PO U nivers ne 100 mcg 2-20 QD ity of tablet 00:00: [place] [facility] galantamine 2015-03 Yes TK 1 T PO U nivers 4 mg tablet 2-20 BID ity of 00:00: [place] [facility] levothyroxi 2015-03 Yes TK 1 T PO U nivers ne 100 mcg 2-20 QD ity of tablet 00:00: [place] [facility] levothyroxi 2015-03- No TK 1 T PO Univers ne 100 mcg 2-20 -21 QD ity of tablet 00:00: 00:00 00 :00 [facility] levothyroxi 2015-03- No TK 1 T PO Univers ne 100 mcg 2-20 -21 QD ity of tablet 00:00: 00:00 [place] 00 :00 [facility] galantamine 2015-03- No TK 1 T PO Univers 4 mg tablet 2-20 -18 BID ity of 00:00: 00:00 [place] 00 :00 [facility] pantoprazol 2015-03 Yes 40mg Q.5D Take 40 mg [facility] 0[facility] (PROTONIX) 16:21: (two) Hospit a 40 MG EC 14 times a l tablet day. risperiDONE 2015-03 Yes 2mg QD Take 2 mg M [facility]i (RisperDAL) 0-[address] 1 MG tablet 16:21: nightly. [facility] 14 l docusate 2015-03 Yes 100mg Q.5D Take 100 Meth ru sodium 0-[address] (COLACE) 16:21: mouth 2 Hospit a 100 MG 14 (two) l capsule times a day. escitalopra 2015-03 Yes 10mg QD Take 10 mg [facility] (LEXAPRO) 0-[address] 10 MG 16:21: daily. Hospita tablet 14 l gabapentin 2015-03 Yes 300mg Q.[id number] Take 300 [facility] (NEURONTIN) 0-03 [id number] mg by s t 300 MG 16:21: 3D mouth 3 Hospita capsule 14 (three) l times a day. meclizine 2015-03 Yes 25mg Q.[id number] Take 25 mg [facility] (ANTIVERT) 0-03 [id number] [address] mouth [address] 25 mg 16:21: [...] tablet 16:21: nightly. [facility] 14 l docusate 2015-03 Yes 100mg Q.5D Take 100 Meth ru sodium 0-[address] (COLACE) 16:21: mouth 2 Hospit a 100 MG 14 (two) l capsule times a day. escitalopra 2015-03 Yes 10mg QD Take 10 mg [facility] (LEXAPRO) 0-[address] 10 MG 16:21: daily. Hospita tablet 14 l docusate 2015-03 Yes 100mg Q.5D Take 100 Meth ru sodium 0-[address] (COLACE) 16:21: mouth 2 Hospit a 100 MG 14 (two) l capsule times a day. escitalopra 2015-03 Yes 10mg QD Take 10 mg [facility] (LEXAPRO) 0-[address] 10 MG 16:21: daily. Hospita tablet 14 l gabapentin 2015-03 Yes 300mg Q.[id number] Take 300 [facility] (NEURONTIN) 0-03 [id number] mg by s t 300 MG 16:21: 3D mouth 3 [facility]ospita capsule 14 (three) l times a day. meclizine 2015-03 Yes 25mg Q.[id number] Take 25 mg [facility] (ANTIVERT) 0-03 [id number] [address] mouth [address] 25 mg 16:21: [...] tablet 16:21: nightly. [facility] 14 l gabapentin 2015-03 Yes 300mg Q.[id number] Take 300 [facility] (NEURONTIN) 0-03 [id number] mg by s t 300 MG 16:21: 3D mouth 3 [facility]osp[facility] capsule 14 (three) l times a day. meclizine 2015-03 Yes 25mg Q.[id number] Take 25 mg [facility] (ANTIVERT) 0-03 [id number] by mouth [address] [facility] 25 mg 16:21: [...] tablet 16:21: nightly. [facility] 14 l docusate 2015-03 Yes 100mg Q.5D Take 100 [facility] sodium 0-[address] (COLACE) 16:21: mouth 2 Hospit a 100 MG 14 (two) l capsule times a day. escitalopra 2015-03 Yes 10mg QD Take 10 mg [facility] (LEXAPRO) 0-[address] 10 MG 16:21: daily. Hospita tablet 14 l gabapentin 2015-03 Yes 300mg Q.[id number] Take 300 [facility] (NEURONTIN) 0-03 [id number] mg by s t 300 MG 16:21: 3D mouth 3 [facility]ospita capsule 14 (three) l times a day. meclizine 2015-03 Yes 25mg Q.[id number] Take 25 mg [facility] (ANTIVERT) 0-03 [id number] by mouth [address] 25 mg 16:21: 3D (three) Hospita tablet 14 times a l day as needed for dizziness. donepezil 2020- No [id number] 5mg Take 1 Tab [facility] (ARICEPT) 5 7-15 04-14 by mouth [facility] MG tablet 00:00: 00:00 daily of 00 :00 (with main Medicin meal). e atorvastati Yes 40mg QD Take [address] [facility] (LIPITOR) 7-18 by mouth [facility] 40 MG 14:49: daily. Medical tablet 44 Center risperiDONE Yes .25mg QD Take 0.[address] [facility] (RISPERDAL) 7-18 mg by [facility] 0.25 MG 14:49: mouth Medical tablet 44 nightly. Center rOPINIRole Yes .25mg Q.[id number] Take 0.[address] [facility] (REQUIP) 7-18 [id number] mg by Luke s 0.25 MG 14:49: [...] (six) hours as needed for Pain. hydrochloro 0 Yes 25mg QD Take [address] [facility] thiazide 7-18 by mouth [facility] (HYDRODIURI 14:49: daily. Medi manny L) 25 MG 44 Center tablet sertraline Yes 50mg QD Take [address] [facility] (ZOLOFT) 50 7-18 by mouth [facility] MG tablet 14:49: daily. Medica l 44 Center diphenoxyla Yes 1{tbl} Take 1 [facility] [...] MG 14:49: mouth Medical tablet 44 daily. [place] primidone Yes 50mg QD Take [address] [facility] [address] [facility] (MYSOLINE) 7-18 by mouth [facility] 50 MG 14:49: daily. Medical tablet 44 Center metoprolol Yes 50mg Q.5D Take [address] (LOPRESSOR) 7-18 by mouth 2 Kizzy kes 50 MG 14:49: (two) Medical tablet 44 times Center daily. gabapentin Yes 300mg Q.[id number] Take [address] [facility] (NEURONTIN) 7-18 [id number] mg by L [facility] 300 MG 14:49: 3D mouth 3 Medical tablet 44 (three) Center times daily. atorvastati Yes 40mg QD Take [address] [facility] (LIPITOR) 7-18 by mouth [facility] 40 MG 14:49: daily. Medical tablet 44 [place] risperiDONE Yes .25mg QD Take 0.[address] [facility] (RISPERDAL) 7-18 mg by [facility] 0.25 MG 14:49: mouth Medical tablet 44 nightly. [place] rOPINIRole Yes .25mg Q.[id number] Take 0.[address] [facility] (REQUIP) 7-18 [id number] mg by Luke s 0.25 MG 14:49: [...] tablet (six) hours as needed for Pain. diphenoxyla Yes 1{tbl} Take 1 [facility] [...] MG 14:49: mouth Medical tablet 44 daily. [place] primidone Yes 50mg QD Take [address] [facility] [address] [facility] (MYSOLINE) 7-18 by mouth [facility] 50 MG 14:49: daily. Medical tablet 44 [place] metoprolol Yes 50mg Q.5D Take [address] (LOPRESSOR) 7-18 by mouth 2 Kizzy kes 50 MG 14:49: (two) Medical tablet 44 times Center daily. gabapentin Yes 300mg Q.[id number] Take [address] [facility] (NEURONTIN) 7-18 [id number] mg by L ukes 300 MG 14:49: 3D mouth 3 Medical tablet 44 (three) Center times daily. atorvastati Yes 40mg QD Take [address] [facility] (LIPITOR) 7-18 by mouth [facility] 40 MG 14:49: daily. Medical tablet 44 [place] risperiDONE Yes .25mg QD Take 0.[address] [facility] [address] (RISPERDAL) 7-18 mg by [facility] 0.25 MG 14:49: mouth Medical tablet 44 nightly. [place] rOPINIRole 2014-0 Yes .25mg Q.[id number] Take 0.[address] [facility] (REQUIP) 7-18 [id number] mg by Luke s 0.25 MG 14:49: [...] tablet 14:49: daily. Medica l 44 Center hydrochloro Yes 25mg QD Take [address] [facility] thiazide 7-18 by mouth [facility] (HYDRODIURI 14:49: daily. Medi manny L) 25 MG 44 Center tablet sertraline Yes 50mg QD Take [address] (ZOLOFT) 50 7-18 by mouth Luke [facility] MG tablet 14:49: daily. Medica l 44 Center diphenoxyla Yes 1{tbl} Take [address] te-atropine 7-18 tablet by Charley es (LOMOTIL) 14:49: mouth 4 Medic al 2.5-0.025 44 (four) Center mg per times tablet daily as needed for Diarrhea. pantoprazol 0 Yes 40mg QD Take [address] [facility] 7-18 by mouth [facility] (PROTONIX) 14:49: daily. Medic al 40 MG 44 Center tablet digoxin Yes 125ug QD Take [facility] (LANOXIN[facility] 7-18 mcg by [facility] 0.125 MG 14:49: mouth Medical tablet 44 daily. [place] primidone 0 Yes 50mg QD Take [address] [facility] (MYSOLINE) 7-18 by mouth [facility] 50 MG 14:49: daily. Medical tablet 44 Center metoprolol 0 Yes 50mg Q.5D Take [address] (LOPRESSOR) 7-18 by mouth 2 Kizzy kes 50 MG 14:49: (two) Medical tablet 44 times Center daily. gabapentin 0 Yes 300mg Q.[id number] Take [address] [facility] (NEURONTIN) 7-18 [id number] mg by L ukes 300 MG 14:49: 3D mouth 3 Medical tablet 44 (three) Center times daily. atorvastati Yes 40mg QD Take [address] [facility] (LIPITOR) 7-18 by mouth [facility] 40 MG 14:49: daily. Medical tablet 44 [place] risperiDONE Yes .25mg QD Take 0.[address] [facility] [address] (RISPERDAL) 7-18 mg by [facility] 0.25 MG 14:49: mouth Medical tablet 44 nightly. [place] rOPINIRole Yes .25mg Q.[id number] Take 0.[address] [facility] [address] (REQUIP) 7-18 [id number] mg by Luke s 0.25 MG 14:49: 3D mouth 3 Medical tablet 44 (three) Center times daily. levothyroxi Yes 100ug QD Take [address] ne 7-18 mcg by [facility] (SYNTHROID, 14:49: mouth Medic al LEVOTHROID) 44 daily. [place] 100 MCG tablet escitalopra Yes 20mg QD Take [address] [facility] (LEXAPRO) 7-18 by mouth [facility] 20 MG 14:49: daily. Medical tablet 44 Center naproxen 0 Yes 220mg Take [address] [facility] (ALEVE,ANAP 7-18 mg by [facility] ALBERTO,MIDOL) 14:49: mouth 2 Medi manny 220 MG 44 (two) Center tablet times daily with breakfast and dinner. acetaminoph 0 Yes 500mg Take [address] [...] tablet 14:49: daily. Medica l 44 Center diphenoxyla Yes 1{tbl} Take 1 [facility] [...] MG 14:49: mouth Medical tablet 44 daily. [place] primidone Yes 50mg QD Take [address] (MYSOLINE) 7-18 by mouth [facility] 50 MG 14:49: daily. Medical tablet 44 [place] metoprolol Yes 50mg Q.5D Take [address] (LOPRESSOR) 7-18 by mouth 2 Kizzy kes 50 MG 14:49: (two) Medical tablet 44 times Center daily. gabapentin Yes 300mg Q.[id number] Take [address] [facility] (NEURONTIN) 7-18 [id number] mg by L ukes 300 MG 14:49: 3D mouth 3 Medical tablet 44 (three) Center times daily. atorvastati Yes 40mg QD Take [address] [facility] (LIPITOR) 7-18 by mouth [facility] 40 MG 14:49: daily. Medical tablet 44 Center risperiDONE Yes .25mg QD Take 0.[address] [facility] (RISPERDAL) 7-18 mg by [facility] 0.25 MG 14:49: mouth Medical tablet 44 nightly. [place] rOPINIRole Yes .25mg Q.[id number] Take 0.[address] [facility] (REQUIP) 7-18 [id number] mg by Luke s 0.25 MG 14:49: [...] tablet 14:49: daily. Medica l 44 Center diphenoxyla Yes 1{tbl} Take 1 [facility] [...] 44 times Center daily. gabapentin Yes 300mg Q.[id number] Take [address] [facility] (NEURONTIN) 7-18 [id number] mg by L ukes 300 MG 14:49: 3D mouth 3 Medical tablet 44 (three) Center times daily. fenofibrate Yes [facility] (TRICOR) 6-17 [facility] 145 MG 00:00: Medical tablet 00 [place] carvedilol Yes [facility] (COREG) 6-17 [facility] 12.5 MG 00:00: Medical tablet 00 [place] fenofibrate Yes [facility] (TRICOR) 6-17 [facility] 145 MG 00:00: Medical tablet 00 [place] carvedilol Yes [facility] (COREG) 6-17 [facility] 12.5 MG 00:00: Medical tablet 00 [place] fenofibrate Yes [facility] (TRICOR) 6-17 [facility] 145 MG 00:00: Medical tablet 00 [place] carvedilol Yes [facility] (COREG) 6-17 [facility] 12.5 MG 00:00: Medical tablet 00 [place] fenofibrate Yes [facility] (TRICOR) 6-17 [facility] 145 MG 00:00: Medical tablet 00 [place] carvedilol Yes [facility] (COREG) 6-17 [facility] 12.5 MG 00:00: Medical tablet 00 [place] fenofibrate Yes [facility] (TRICOR) 6-17 [facility] 145 MG 00:00: Medical tablet 00 [place] carvedilol Yes [facility] (COREG) 6-17 [facility] 12.5 MG 00:00: Medical tablet 00 [place] amLODIPine Yes 5mg QD [address] [facility] (NORVASC) 5 6-11 daily. [facility] MG tablet 00:00: Medical 00 [place] amLODIPine Yes 5mg QD [address] [facility] (NORVASC) 5 6-11 daily. [facility] MG tablet 00:00: Medical 00 [place] amLODIPine Yes 5mg QD [address] [facility] (NORVASC) 5 6-11 daily. [facility] MG tablet 00:00: Medical 00 [place] amLODIPine Yes 5mg QD [address] [facility] (NORVASC) 5 6-11 daily. [facility] MG tablet 00:00: Medical 00 [place] amLODIPine Yes 5mg QD [address] [facility] (NORVASC) 5 6-11 daily. [facility] MG tablet 00:00: Medical 00 [place] omeprazole Yes [facility] (PRILOSEC) 5 [facility] 40 MG 00:00: Medical capsule 00 [place] omeprazole Yes [facility] (PRILOSEC) 5 [facility] 40 MG 00:00: Medical capsule 00 [place] omeprazole Yes [facility] (PRILOSEC) 5 [facility] 40 MG 00:00: Medical capsule 00 [place] omeprazole Yes [facility] (PRILOSEC) 5 [facility] 40 MG 00:00: Medical capsule 00 [place] omeprazole Yes [facility] (PRILOSEC) 07-29 [facility] 40 MG 00:00: Medical capsule 00 [place] + + Yes Sidney Taylor as C ommon Complete Complete Guard[place] directed Spi rit Multi Multi - [facility] Metoprolol Metoprolol Yes Sidney Taylor TAKE 1 Common Tartrate Tartrate Guard[place] TABLET BY Sp rachell MOUTH - CHI TWICE A DAY [facility] Carbidopa-L Carbidopa-L Yes Sidney Taylor TAKE 1 Common evodopa evodopa Guard[place] TABLET BY Spir it MOUTH - [facility] THREE St TIMES A [facility] Levothyroxi Levothyroxi Yes Sidney Taylor TAKE 1 Common ne Sodium ne Sodium Guardado TABLET BY Spirit MOUTH - [facility]I EVERY DAY [facility] Citalopram Citalopram Yes Sidney Taylor TAKE 1 Common Hydrobromid Hydrobromid [place] TABLET BY Spirit e e MOUTH - CHI EVERY DAY [facility] Donepezil Donepezil Yes Sidney Taylor TAKE 1 C ommon HCl HCl [place] TABLET BY Spirit MOUTH AT - CHI BEDTIME [facility] Atorvastati Atorvastati Yes Sidney Taylor TAKE 1 Common n Calcium n Calcium Guardado TABLET BY Spirit MOUTH - [facility]I EVERY DAY AT NIGHT [facility] Oxybutynin Oxybutynin Yes Sidney Taylor TAKE 1 Common Chloride Chloride Guardado TABLET BY Sp rachell MOUTH - CHI EVERY DAY [facility] Ketoconazol Ketoconazol No QD Ketoconazo e-Cleanser e-Cleanser le-Cleanse 2 % 2 % r 2 % + + No + Complete Complete Complete Multi 0.267 Multi 0.267 Multi & 373 MG & 373 MG 0.267 & 373 MG Terbinafine Terbinafine No 1{table QD Terbinafin HCl 250 MG HCl 250 MG t} e HCl 250 MG Nystatin Nystatin No BID Nystatin [id number] UNIT/GM UNIT/GM UNIT/GM Metoprolol Metoprolol No 1{table BID Metoprolol Tartrate Tartrate t_with_ Tartrate 100 MG 100 MG food} 100 MG Levothyroxi Levothyroxi No Levothyrox ne Sodium ne Sodium ine Sodium 112 MCG 112 MCG 112 MCG OLANZapine OLANZapine No 1{table OLANZapine 5 MG 5 MG t} 5 MG Citalopram Citalopram No Citalopram Hydrobromid Hydrobromid Hydrobromi e 20 MG e 20 MG de 20 MG Acetaminoph Acetaminoph No QID Acetaminop en-Codeine en-Codeine hen-Codein #3 300-30 #3 300-30 e #3 MG MG 300-30 MG Levothyroxi Levothyroxi No QD Levothyrox ne Sodium ne Sodium ine Sodium 112 MCG 112 MCG 112 MCG Citalopram Citalopram No 1{table QD Citalopram Hydrobromid Hydrobromid t} Hydrobromi e 20 MG e 20 MG de 20 MG Triamcinolo Triamcinolo No BID Triamcinol ne ne one Acetonide Acetonide Acetonide 0.1 % 0.1 % 0.1 % Donepezil Donepezil No Donepezil HCl 5 MG HCl 5 MG HCl 5 MG hydroCHLORO hydroCHLORO No 1{table QD hydroCHLOR thiazide thiazide t_in_th Othiazide 12.5 MG 12.5 MG e_morni 12.5 MG ng} Myrbetriq Myrbetriq No 1{table QD Myrbetriq 25 MG 25 MG t} 25 MG Atorvastati Atorvastati No Atorvastat n Calcium n Calcium in Calcium 40 MG 40 MG 40 MG Carbidopa-L Carbidopa-L No Carbidopa- evodopa evodopa Levodopa 25-100 MG 25-100 MG 25-100 MG Carbidopa-L Carbidopa-L No Carbidopa- evodopa evodopa Levodopa 25-100 MG 25-100 MG 25-100 MG Ketoconazol Ketoconazol No QD Ketoconazo e-Cleanser e-Cleanser le-Cleanse 2 % 2 % r 2 % hydroCHLORO hydroCHLORO No 1{capsu QD hydroCHLOR thiazide thiazide le_in_t Othiazide 12.5 MG 12.5 MG he_morn 12.5 MG ing} Carbidopa-L Carbidopa-L No Carbidopa- evodopa evodopa Levodopa 25-100 MG 25-100 MG 25-100 MG Atorvastati Atorvastati No Atorvastat n Calcium n Calcium in Calcium 40 MG 40 MG 40 MG + + No + Complete Complete Complete Multi 0.267 Multi 0.267 Multi & 373 MG & 373 MG 0.267 & 373 MG Myrbetriq Myrbetriq No 1{table QD Myrbetriq 25 MG 25 MG t} 25 MG OLANZapine OLANZapine No 1{table OLANZapine 5 MG 5 MG t} 5 MG Acetaminoph Acetaminoph No QID Acetaminop en-Codeine en-Codeine hen-Codein #3 300-30 #3 300-30 e #3 MG MG 300-30 MG Terbinafine Terbinafine No 1{table QD Terbinafin HCl 250 MG HCl 250 MG t} e HCl 250 MG Levothyroxi Levothyroxi No QD Levothyrox ne Sodium ne Sodium ine Sodium 112 MCG 112 MCG 112 MCG Metoprolol Metoprolol No 1{table BID Metoprolol Tartrate Tartrate t_with_ Tartrate 100 MG 100 MG food} 100 MG Donepezil Donepezil No Donepezil HCl 5 MG HCl 5 MG HCl 5 MG Citalopram Citalopram No 1{table QD Citalopram Hydrobromid Hydrobromid t} Hydrobromi e 20 MG e 20 MG de 20 MG OLANZapine OLANZapine No 1{table OLANZapine 5 MG 5 MG t} 5 MG Acetaminoph Acetaminoph No QID Acetaminop en-Codeine en-Codeine hen-Codein #3 300-30 #3 300-30 e #3 MG MG 300-30 MG Carbidopa-L Carbidopa-L No Carbidopa- evodopa evodopa Levodopa 25-100 MG 25-100 MG 25-100 MG Atorvastati Atorvastati No Atorvastat n Calcium n Calcium in Calcium 40 MG 40 MG 40 MG + + No + Complete Complete Complete Multi 0.267 Multi 0.267 Multi & 373 MG & 373 MG 0.267 & 373 MG Myrbetriq Myrbetriq No 1{table QD Myrbetriq 25 MG 25 MG t} 25 MG hydroCHLORO hydroCHLORO No 1{table QD hydroCHLOR thiazide thiazide t_in_th Othiazide 12.5 MG 12.5 MG e_morni 12.5 MG ng} Citalopram Citalopram No 1{table QD Citalopram Hydrobromid Hydrobromid t} Hydrobromi e 20 MG e 20 MG de 20 MG Terbinafine Terbinafine No 1{table QD Terbinafin HCl 250 MG HCl 250 MG t} e HCl 250 MG Ketoconazol Ketoconazol No QD Ketoconazo e-Cleanser e-Cleanser le-Cleanse 2 % 2 % r 2 % Metoprolol Metoprolol No 1{table BID Metoprolol Tartrate Tartrate t_with_ Tartrate 100 MG 100 MG food} 100 MG Donepezil Donepezil No Donepezil HCl 5 MG HCl 5 MG HCl 5 MG Levothyroxi Levothyroxi No QD Levothyrox ne Sodium ne Sodium ine Sodium 112 MCG 112 MCG 112 MCG Atorvastati Atorvastati No Atorvastat n Calcium n Calcium in Calcium 40 MG 40 MG 40 MG Citalopram Citalopram No 1{table QD Citalopram Hydrobromid Hydrobromid t} Hydrobromi e 20 MG e 20 MG de 20 MG hydroCHLORO hydroCHLORO No 1{table QD hydroCHLOR thiazide thiazide t_in_th Othiazide 12.5 MG 12.5 MG e_morni 12.5 MG ng} Myrbetriq Myrbetriq No 1{table QD Myrbetriq 25 MG 25 MG t} 25 MG Terbinafine Terbinafine No 1{table QD Terbinafin HCl 250 MG HCl 250 MG t} e HCl 250 MG Metoprolol Metoprolol No 1{table BID Metoprolol Tartrate Tartrate t_with_ Tartrate 100 MG 100 MG food} 100 MG Levothyroxi Levothyroxi No QD Levothyrox ne Sodium ne Sodium ine Sodium 112 MCG 112 MCG 112 MCG Ketoconazol Ketoconazol No QD Ketoconazo e-Cleanser e-Cleanser le-Cleanse 2 % 2 % r 2 % + + No + Complete Complete Complete Multi 0.267 Multi 0.267 Multi & 373 MG & 373 MG 0.267 & 373 MG OLANZapine OLANZapine No 1{table OLANZapine 5 MG 5 MG t} 5 MG Carbidopa-L Carbidopa-L No Carbidopa- evodopa evodopa Levodopa 25-100 MG 25-100 MG 25-100 MG Donepezil Donepezil No Donepezil HCl 5 MG HCl 5 MG HCl 5 MG Acetaminoph Acetaminoph No QID Acetaminop en-Codeine en-Codeine hen-Codein #3 300-30 #3 300-30 e #3 MG MG 300-30 MG Levothyroxi Levothyroxi No QD Levothyrox ne Sodium ne Sodium ine Sodium 112 MCG 112 MCG 112 MCG Citalopram Citalopram No 1{table QD Citalopram Hydrobromid Hydrobromid t} Hydrobromi e 20 MG e 20 MG de 20 MG OLANZapine OLANZapine No 1{table OLANZapine 5 MG 5 MG t} 5 MG Atorvastati Atorvastati No Atorvastat n Calcium n Calcium in Calcium 40 MG 40 MG 40 MG Metoprolol Metoprolol No 1{table BID Metoprolol Tartrate Tartrate t_with_ Tartrate 100 MG 100 MG food} 100 MG Terbinafine Terbinafine No 1{table QD Terbinafin HCl 250 MG HCl 250 MG t} e HCl 250 MG Acetaminoph Acetaminoph No QID Acetaminop en-Codeine en-Codeine hen-Codein #3 300-30 #3 300-30 e #3 MG MG 300-30 MG Donepezil Donepezil No Donepezil HCl 5 MG HCl 5 MG HCl 5 MG Myrbetriq Myrbetriq No 1{table QD Myrbetriq 25 MG 25 MG t} 25 MG + + No + Complete Complete Complete Multi 0.267 Multi 0.267 Multi & 373 MG & 373 MG 0.267 & 373 MG hydroCHLORO hydroCHLORO No 1{table QD hydroCHLOR thiazide thiazide t_in_th Othiazide 12.5 MG 12.5 MG e_morni 12.5 MG ng} Ketoconazol Ketoconazol No QD Ketoconazo e-Cleanser e-Cleanser le-Cleanse 2 % 2 % r 2 % Carbidopa-L Carbidopa-L No Carbidopa- evodopa evodopa Levodopa 25-100 MG 25-100 MG 25-100 MG Ketoconazol Ketoconazol No QD e-Cleanser e-Cleanser 2 % 2 % Acetaminoph Acetaminoph No QID en-Codeine en-Codeine #3 300-30 #3 300-30 MG MG Myrbetriq Myrbetriq No 1{table QD 25 MG 25 MG t} Donepezil Donepezil No HCl 5 MG HCl 5 MG + + No Complete Complete Multi 0.267 Multi 0.267 & 373 MG & 373 MG Atorvastati Atorvastati No n Calcium n Calcium 40 MG 40 MG OLANZapine OLANZapine No 1{table 5 MG 5 MG t} Terbinafine Terbinafine No 1{table QD HCl 250 MG HCl 250 MG t} Metoprolol Metoprolol No 1{table BID Tartrate Tartrate t_with_ 100 MG 100 MG food} Citalopram Citalopram No 1{table QD Hydrobromid Hydrobromid t} e 20 MG e 20 MG Levothyroxi Levothyroxi No QD ne Sodium ne Sodium 112 MCG 112 MCG Carbidopa-L Carbidopa-L No evodopa evodopa 25-100 MG 25-100 MG hydroCHLORO hydroCHLORO No 1{table QD thiazide thiazide t_in_th 12.5 MG 12.5 MG e_morni ng} Ketoconazol Ketoconazol No QD Ketoconazo e-Cleanser e-Cleanser le-Cleanse 2 % 2 % r 2 % Acetaminoph Acetaminoph No QID Acetaminop en-Codeine en-Codeine hen-Codein #3 300-30 #3 300-30 e #3 MG MG 300-30 MG Myrbetriq Myrbetriq No 1{table QD Myrbetriq 25 MG 25 MG t} 25 MG Donepezil Donepezil No Donepezil HCl 5 MG HCl 5 MG HCl 5 MG + + No + Complete Complete Complete Multi 0.267 Multi 0.267 Multi & 373 MG & 373 MG 0.267 & 373 MG Atorvastati Atorvastati No Atorvastat n Calcium n Calcium in Calcium 40 MG 40 MG 40 MG OLANZapine OLANZapine No 1{table OLANZapine 5 MG 5 MG t} 5 MG Terbinafine Terbinafine No 1{table QD Terbinafin HCl 250 MG HCl 250 MG t} e HCl 250 MG Metoprolol Metoprolol No 1{table BID Metoprolol Tartrate Tartrate t_with_ Tartrate 100 MG 100 MG food} 100 MG Citalopram Citalopram No 1{table QD Citalopram Hydrobromid Hydrobromid t} Hydrobromi e 20 MG e 20 MG de 20 MG Levothyroxi Levothyroxi No QD Levothyrox ne Sodium ne Sodium ine Sodium 112 MCG 112 MCG 112 MCG Carbidopa-L Carbidopa-L No Carbidopa- evodopa evodopa Levodopa 25-100 MG 25-100 MG 25-100 MG hydroCHLORO hydroCHLORO No 1{table QD hydroCHLOR thiazide thiazide t_in_th Othiazide 12.5 MG 12.5 MG e_morni 12.5 MG ng} OLANZapine OLANZapine No 1{table OLANZapine 5 MG 5 MG t} 5 MG Ketoconazol Ketoconazol No QD Ketoconazo e-Cleanser e-Cleanser le-Cleanse 2 % 2 % r 2 % Terbinafine Terbinafine No 1{table QD Terbinafin HCl 250 MG HCl 250 MG t} e HCl 250 MG hydroCHLORO hydroCHLORO No 1{table QD hydroCHLOR thiazide thiazide t_in_th Othiazide 12.5 MG 12.5 MG e_morni 12.5 MG ng} Myrbetriq Myrbetriq No 1{table QD Myrbetriq 25 MG 25 MG t} 25 MG Levothyroxi Levothyroxi No QD Levothyrox ne Sodium ne Sodium ine Sodium 112 MCG 112 MCG 112 MCG Metoprolol Metoprolol No 1{table BID Metoprolol Tartrate Tartrate t_with_ Tartrate 100 MG 100 MG food} 100 MG Acetaminoph Acetaminoph No QID Acetaminop en-Codeine en-Codeine hen-Codein #3 300-30 #3 300-30 e #3 MG MG 300-30 MG Carbidopa-L Carbidopa-L No Carbidopa- evodopa evodopa Levodopa 25-100 MG 25-100 MG 25-100 MG Atorvastati Atorvastati No Atorvastat n Calcium n Calcium in Calcium 40 MG 40 MG 40 MG + + No + Complete Complete Complete Multi 0.267 Multi 0.267 Multi & 373 MG & 373 MG 0.267 & 373 MG Donepezil Donepezil No Donepezil HCl 5 MG HCl 5 MG HCl 5 MG Citalopram Citalopram No 1{table QD Citalopram Hydrobromid Hydrobromid t} Hydrobromi e 20 MG e 20 MG de 20 MG OLANZapine OLANZapine No 1{table OLANZapine 5 MG 5 MG t} 5 MG Ketoconazol Ketoconazol No QD Ketoconazo e-Cleanser e-Cleanser le-Cleanse 2 % 2 % r 2 % Terbinafine Terbinafine No 1{table QD Terbinafin HCl 250 MG HCl 250 MG t} e HCl 250 MG hydroCHLORO hydroCHLORO No 1{table QD hydroCHLOR thiazide thiazide t_in_th Othiazide 12.5 MG 12.5 MG e_morni 12.5 MG ng} Myrbetriq Myrbetriq No 1{table QD Myrbetriq 25 MG 25 MG t} 25 MG Levothyroxi Levothyroxi No QD Levothyrox ne Sodium ne Sodium ine Sodium 112 MCG 112 MCG 112 MCG Metoprolol Metoprolol No 1{table BID Metoprolol Tartrate Tartrate t_with_ Tartrate 100 MG 100 MG food} 100 MG Acetaminoph Acetaminoph No QID Acetaminop en-Codeine en-Codeine hen-Codein #3 300-30 #3 300-30 e #3 MG MG 300-30 MG Carbidopa-L Carbidopa-L No Carbidopa- evodopa evodopa Levodopa 25-100 MG 25-100 MG 25-100 MG Atorvastati Atorvastati No Atorvastat n Calcium n Calcium in Calcium 40 MG 40 MG 40 MG + + No + Complete Complete Complete Multi 0.267 Multi 0.267 Multi & 373 MG & 373 MG 0.267 & 373 MG Donepezil Donepezil No Donepezil HCl 5 MG HCl 5 MG HCl 5 MG Citalopram Citalopram No 1{table QD Citalopram Hydrobromid Hydrobromid t} Hydrobromi e 20 MG e 20 MG de 20 MG Ketoconazol Ketoconazol No QD Ketoconazo e-Cleanser e-Cleanser le-Cleanse 2 % 2 % r 2 % Citalopram Citalopram No 1{table QD Citalopram Hydrobromid Hydrobromid t} Hydrobromi e 20 MG e 20 MG de 20 MG + + No + Complete Complete Complete Multi 0.267 Multi 0.267 Multi & 373 MG & 373 MG 0.267 & 373 MG Carbidopa-L Carbidopa-L No Carbidopa- evodopa evodopa Levodopa 25-100 MG 25-100 MG 25-100 MG Myrbetriq Myrbetriq No 1{table QD Myrbetriq 25 MG 25 MG t} 25 MG Metoprolol Metoprolol No 1{table BID Metoprolol Tartrate Tartrate t_with_ Tartrate 100 MG 100 MG food} 100 MG Acetaminoph Acetaminoph No QID Acetaminop en-Codeine en-Codeine hen-Codein #3 300-30 #3 300-30 e #3 MG MG 300-30 MG Atorvastati Atorvastati No Atorvastat n Calcium n Calcium in Calcium 40 MG 40 MG 40 MG OLANZapine OLANZapine No 1{table OLANZapine 5 MG 5 MG t} 5 MG hydroCHLORO hydroCHLORO No 1{table QD hydroCHLOR thiazide thiazide t_in_th Othiazide 12.5 MG 12.5 MG e_morni 12.5 MG ng} Levothyroxi Levothyroxi No QD Levothyrox ne Sodium ne Sodium ine Sodium 112 MCG 112 MCG 112 MCG Donepezil Donepezil No Donepezil HCl 5 MG HCl 5 MG HCl 5 MG Terbinafine Terbinafine No 1{table QD Terbinafin HCl 250 MG HCl 250 MG t} e HCl 250 MG Acetaminoph Acetaminoph No QID Acetaminop en-Codeine en-Codeine hen-Codein #3 300-30 #3 300-30 e #3 MG MG 300-30 MG Citalopram Citalopram No 1{table QD Citalopram Hydrobromid Hydrobromid t} Hydrobromi e 20 MG e 20 MG de 20 MG + + No + Complete Complete Complete Multi 0.267 Multi 0.267 Multi & 373 MG & 373 MG 0.267 & 373 MG Carbidopa-L Carbidopa-L No Carbidopa- evodopa evodopa Levodopa 25-100 MG 25-100 MG 25-100 MG Myrbetriq Myrbetriq No 1{table QD Myrbetriq 25 MG 25 MG t} 25 MG Levothyroxi Levothyroxi No QD Levothyrox ne Sodium ne Sodium ine Sodium 112 MCG 112 MCG 112 MCG Metoprolol Metoprolol No 1{table BID Metoprolol Tartrate Tartrate t_with_ Tartrate 100 MG 100 MG food} 100 MG Atorvastati Atorvastati No Atorvastat n Calcium n Calcium in Calcium 40 MG 40 MG 40 MG hydroCHLORO hydroCHLORO No hydroCHLOR thiazide thiazide Othiazide 12.5 MG 12.5 MG 12.5 MG Ketoconazol Ketoconazol No QD Ketoconazo e-Cleanser e-Cleanser le-Cleanse 2 % 2 % r 2 % OLANZapine OLANZapine No 1{table OLANZapine 5 MG 5 MG t} 5 MG Donepezil Donepezil No Donepezil HCl 5 MG HCl 5 MG HCl 5 MG Terbinafine Terbinafine No 1{table QD Terbinafin HCl 250 MG HCl 250 MG t} e HCl 250 MG Acetaminoph Acetaminoph No QID Acetaminop en-Codeine en-Codeine hen-Codein #3 300-30 #3 300-30 e #3 MG MG 300-30 MG Citalopram Citalopram No 1{table QD Citalopram Hydrobromid Hydrobromid t} Hydrobromi e 20 MG e 20 MG de 20 MG + + No + Complete Complete Complete Multi 0.267 Multi 0.267 Multi & 373 MG & 373 MG 0.267 & 373 MG Carbidopa-L Carbidopa-L No Carbidopa- evodopa evodopa Levodopa 25-100 MG 25-100 MG 25-100 MG Myrbetriq Myrbetriq No 1{table QD Myrbetriq 25 MG 25 MG t} 25 MG Levothyroxi Levothyroxi No QD Levothyrox ne Sodium ne Sodium ine Sodium 112 MCG 112 MCG 112 MCG Metoprolol Metoprolol No 1{table BID Metoprolol Tartrate Tartrate t_with_ Tartrate 100 MG 100 MG food} 100 MG Atorvastati Atorvastati No Atorvastat n Calcium n Calcium in Calcium 40 MG 40 MG 40 MG hydroCHLORO hydroCHLORO No hydroCHLOR thiazide thiazide Othiazide 12.5 MG 12.5 MG 12.5 MG Ketoconazol Ketoconazol No QD Ketoconazo e-Cleanser e-Cleanser le-Cleanse 2 % 2 % r 2 % OLANZapine OLANZapine No 1{table OLANZapine 5 MG 5 MG t} 5 MG Donepezil Donepezil No Donepezil HCl 5 MG HCl 5 MG HCl 5 MG Terbinafine Terbinafine No 1{table QD Terbinafin HCl 250 MG HCl 250 MG t} e HCl 250 MG Acetaminoph Acetaminoph No QID Acetaminop en-Codeine en-Codeine hen-Codein #3 300-30 #3 300-30 e #3 MG MG 300-30 MG Myrbetriq Myrbetriq No 1{table QD Myrbetriq 25 MG 25 MG t} 25 MG Atorvastati Atorvastati No Atorvastat n Calcium n Calcium in Calcium 40 MG 40 MG 40 MG OLANZapine OLANZapine No 1{table OLANZapine 5 MG 5 MG t} 5 MG Ketoconazol Ketoconazol No QD Ketoconazo e-Cleanser e-Cleanser le-Cleanse 2 % 2 % r 2 % hydroCHLORO hydroCHLORO No hydroCHLOR thiazide thiazide Othiazide 12.5 MG 12.5 MG 12.5 MG Donepezil Donepezil No Donepezil HCl 5 MG HCl 5 MG HCl 5 MG Terbinafine Terbinafine No 1{table QD Terbinafin HCl 250 MG HCl 250 MG t} e HCl 250 MG + + No + Complete Complete Complete Multi 0.267 Multi 0.267 Multi & 373 MG & 373 MG 0.267 & 373 MG Citalopram Citalopram No Citalopram Hydrobromid Hydrobromid Hydrobromi e 20 MG e 20 MG de 20 MG Metoprolol Metoprolol No 1{table BID Metoprolol Tartrate Tartrate t_with_ Tartrate 100 MG 100 MG food} 100 MG Carbidopa-L Carbidopa-L No Carbidopa- evodopa evodopa Levodopa 25-100 MG 25-100 MG 25-100 MG Levothyroxi Levothyroxi No Levothyrox ne Sodium ne Sodium ine Sodium 112 MCG 112 MCG 112 MCG Acetaminoph Acetaminoph No QID Acetaminop en-Codeine en-Codeine hen-Codein #3 300-30 #3 300-30 e #3 MG MG 300-30 MG Myrbetriq Myrbetriq No 1{table QD Myrbetriq 25 MG 25 MG t} 25 MG Atorvastati Atorvastati No Atorvastat n Calcium n Calcium in Calcium 40 MG 40 MG 40 MG OLANZapine OLANZapine No 1{table OLANZapine 5 MG 5 MG t} 5 MG Ketoconazol Ketoconazol No QD Ketoconazo e-Cleanser e-Cleanser le-Cleanse 2 % 2 % r 2 % hydroCHLORO hydroCHLORO No hydroCHLOR thiazide thiazide Othiazide 12.5 MG 12.5 MG 12.5 MG Donepezil Donepezil No Donepezil HCl 5 MG HCl 5 MG HCl 5 MG Terbinafine Terbinafine No 1{table QD Terbinafin HCl 250 MG HCl 250 MG t} e HCl 250 MG + + No + Complete Complete Complete Multi 0.267 Multi 0.267 Multi & 373 MG & 373 MG 0.267 & 373 MG Citalopram Citalopram No Citalopram Hydrobromid Hydrobromid Hydrobromi e 20 MG e 20 MG de 20 MG Metoprolol Metoprolol No 1{table BID Metoprolol Tartrate Tartrate t_with_ Tartrate 100 MG 100 MG food} 100 MG Carbidopa-L Carbidopa-L No Carbidopa- evodopa evodopa Levodopa 25-100 MG 25-100 MG 25-100 MG Levothyroxi Levothyroxi No Levothyrox ne Sodium ne Sodium ine Sodium 112 MCG 112 MCG 112 MCG Acetaminoph Acetaminoph No QID Acetaminop en-Codeine en-Codeine hen-Codein #3 300-30 #3 300-30 e #3 MG MG 300-30 MG Myrbetriq Myrbetriq No 1{table QD Myrbetriq 25 MG 25 MG t} 25 MG Atorvastati Atorvastati No Atorvastat n Calcium n Calcium in Calcium 40 MG 40 MG 40 MG OLANZapine OLANZapine No 1{table OLANZapine 5 MG 5 MG t} 5 MG Ketoconazol Ketoconazol No QD Ketoconazo e-Cleanser e-Cleanser le-Cleanse 2 % 2 % r 2 % hydroCHLORO hydroCHLORO No hydroCHLOR thiazide thiazide Othiazide 12.5 MG 12.5 MG 12.5 MG Donepezil Donepezil No Donepezil HCl 5 MG HCl 5 MG HCl 5 MG Terbinafine Terbinafine No 1{table QD Terbinafin HCl 250 MG HCl 250 MG t} e HCl 250 MG + + No + Complete Complete Complete Multi 0.267 Multi 0.267 Multi & 373 MG & 373 MG 0.267 & 373 MG Citalopram Citalopram No Citalopram Hydrobromid Hydrobromid Hydrobromi e 20 MG e 20 MG de 20 MG Metoprolol Metoprolol No 1{table BID Metoprolol Tartrate Tartrate t_with_ Tartrate 100 MG 100 MG food} 100 MG Carbidopa-L Carbidopa-L No Carbidopa- evodopa evodopa Levodopa 25-100 MG 25-100 MG 25-100 MG Levothyroxi Levothyroxi No Levothyrox ne Sodium ne Sodium ine Sodium 112 MCG 112 MCG 112 MCG Levothyroxi Levothyroxi No Levothyrox ne Sodium ne Sodium ine Sodium 112 MCG 112 MCG 112 MCG + + No + Complete Complete Complete Multi 0.267 Multi 0.267 Multi & 373 MG & 373 MG 0.267 & 373 MG Atorvastati Atorvastati No Atorvastat n Calcium n Calcium in Calcium 40 MG 40 MG 40 MG OLANZapine OLANZapine No 1{table OLANZapine 5 MG 5 MG t} 5 MG hydroCHLORO hydroCHLORO No hydroCHLOR thiazide thiazide Othiazide 12.5 MG 12.5 MG 12.5 MG Acetaminoph Acetaminoph No QID Acetaminop en-Codeine en-Codeine hen-Codein #3 300-30 #3 300-30 e #3 MG MG 300-30 MG Myrbetriq Myrbetriq No 1{table QD Myrbetriq 25 MG 25 MG t} 25 MG Citalopram Citalopram No Citalopram Hydrobromid Hydrobromid Hydrobromi e 20 MG e 20 MG de 20 MG Carbidopa-L Carbidopa-L No Carbidopa- evodopa evodopa Levodopa 25-100 MG 25-100 MG 25-100 MG Ketoconazol Ketoconazol No QD Ketoconazo e-Cleanser e-Cleanser le-Cleanse 2 % 2 % r 2 % Metoprolol Metoprolol No 1{table BID Metoprolol Tartrate Tartrate t_with_ Tartrate 100 MG 100 MG food} 100 MG Donepezil Donepezil No Donepezil HCl 5 MG HCl 5 MG HCl 5 MG Terbinafine Terbinafine No 1{table QD Terbinafin HCl 250 MG HCl 250 MG t} e HCl 250 MG hydroCHLORO hydroCHLORO No hydroCHLOR thiazide thiazide Othiazide 12.5 MG 12.5 MG 12.5 MG Carbidopa-L Carbidopa-L No Carbidopa- evodopa evodopa Levodopa 25-100 MG 25-100 MG 25-100 MG Donepezil Donepezil No Donepezil HCl 5 MG HCl 5 MG HCl 5 MG Acetaminoph Acetaminoph No QID Acetaminop en-Codeine en-Codeine hen-Codein #3 300-30 #3 300-30 e #3 MG MG 300-30 MG Atorvastati Atorvastati No Atorvastat n Calcium n Calcium in Calcium 40 MG 40 MG 40 MG Metoprolol Metoprolol No 1{table BID Metoprolol Tartrate Tartrate t_with_ Tartrate 100 MG 100 MG food} 100 MG Levothyroxi Levothyroxi No Levothyrox ne Sodium ne Sodium ine Sodium 112 MCG 112 MCG 112 MCG Terbinafine Terbinafine No 1{table QD Terbinafin HCl 250 MG HCl 250 MG t} e HCl 250 MG Myrbetriq Myrbetriq No 1{table QD Myrbetriq 25 MG 25 MG t} 25 MG + + No + Complete Complete Complete Multi 0.267 Multi 0.267 Multi & 373 MG & 373 MG 0.267 & 373 MG Citalopram Citalopram No Citalopram Hydrobromid Hydrobromid Hydrobromi e 20 MG e 20 MG de 20 MG OLANZapine OLANZapine No 1{table OLANZapine 5 MG 5 MG t} 5 MG Ketoconazol Ketoconazol No QD Ketoconazo e-Cleanser e-Cleanser le-Cleanse 2 % 2 % r 2 % Citalopram Citalopram No Citalopram Hydrobromid Hydrobromid Hydrobromi e 20 MG e 20 MG de 20 MG Donepezil Donepezil No Donepezil HCl 5 MG HCl 5 MG HCl 5 MG Metoprolol Metoprolol No 1{table BID Metoprolol Tartrate Tartrate t_with_ Tartrate 100 MG 100 MG food} 100 MG Carbidopa-L Carbidopa-L No Carbidopa- evodopa evodopa Levodopa 25-100 MG 25-100 MG 25-100 MG + + No + Complete Complete Complete Multi 0.267 Multi 0.267 Multi & 373 MG & 373 MG 0.267 & 373 MG Nystatin Nystatin No BID Nystatin [id number] UNIT/GM UNIT/GM UNIT/GM Citalopram Citalopram No 1{table QD Citalopram Hydrobromid Hydrobromid t} Hydrobromi e 20 MG e 20 MG de 20 MG OLANZapine OLANZapine No 1{table OLANZapine 5 MG 5 MG t} 5 MG Myrbetriq Myrbetriq No 1{table QD Myrbetriq 25 MG 25 MG t} 25 MG hydroCHLORO hydroCHLORO No 1{table QD hydroCHLOR thiazide thiazide t_in_th Othiazide 12.5 MG 12.5 MG e_morni 12.5 MG ng} Ketoconazol Ketoconazol No QD Ketoconazo e-Cleanser e-Cleanser le-Cleanse 2 % 2 % r 2 % Levothyroxi Levothyroxi No QD Levothyrox ne Sodium ne Sodium ine Sodium 112 MCG 112 MCG 112 MCG Triamcinolo Triamcinolo No BID Triamcinol ne ne one Acetonide Acetonide Acetonide 0.1 % 0.1 % 0.1 % hydroCHLORO hydroCHLORO No hydroCHLOR thiazide thiazide Othiazide 12.5 MG 12.5 MG 12.5 MG Levothyroxi Levothyroxi No Levothyrox ne Sodium ne Sodium ine Sodium 112 MCG 112 MCG 112 MCG Atorvastati Atorvastati No Atorvastat n Calcium n Calcium in Calcium 40 MG 40 MG 40 MG Acetaminoph Acetaminoph No QID Acetaminop en-Codeine en-Codeine hen-Codein #3 300-30 #3 300-30 e #3 MG MG 300-30 MG Terbinafine Terbinafine No 1{table QD Terbinafin HCl 250 MG HCl 250 MG t} e HCl 250 MG Citalopram Citalopram No Citalopram Hydrobromid Hydrobromid Hydrobromi e 20 MG e 20 MG de 20 MG Donepezil Donepezil No Donepezil HCl 5 MG HCl 5 MG HCl 5 MG Metoprolol Metoprolol No 1{table BID Metoprolol Tartrate Tartrate t_with_ Tartrate 100 MG 100 MG food} 100 MG Carbidopa-L Carbidopa-L No Carbidopa- evodopa evodopa Levodopa 25-100 MG 25-100 MG 25-100 MG + + No + Complete Complete Complete Multi 0.267 Multi 0.267 Multi & 373 MG & 373 MG 0.267 & 373 MG Nystatin Nystatin No BID Nystatin [id number] UNIT/GM UNIT/GM UNIT/GM Citalopram Citalopram No 1{table QD Citalopram Hydrobromid Hydrobromid t} Hydrobromi e 20 MG e 20 MG de 20 MG OLANZapine OLANZapine No 1{table OLANZapine 5 MG 5 MG t} 5 MG Myrbetriq Myrbetriq No 1{table QD Myrbetriq 25 MG 25 MG t} 25 MG hydroCHLORO hydroCHLORO No 1{table QD hydroCHLOR thiazide thiazide t_in_ Othiazide 12.5 MG 12.5 MG e_morni 12.5 MG ng} Ketoconazol Ketoconazol No QD Ketoconazo e-Cleanser e-Cleanser le-Cleanse 2 % 2 % r 2 % Levothyroxi Levothyroxi No QD Levothyrox ne Sodium ne Sodium ine Sodium 112 MCG 112 MCG 112 MCG Triamcinolo Triamcinolo No BID Triamcinol ne ne one Acetonide Acetonide Acetonide 0.1 % 0.1 % 0.1 % hydroCHLORO hydroCHLORO No hydroCHLOR thiazide thiazide Othiazide 12.5 MG 12.5 MG 12.5 MG Levothyroxi Levothyroxi No Levothyrox ne Sodium ne Sodium ine Sodium 112 MCG 112 MCG 112 MCG Atorvastati Atorvastati No Atorvastat n Calcium n Calcium in Calcium 40 MG 40 MG 40 MG Acetaminoph Acetaminoph No QID Acetaminop en-Codeine en-Codeine hen-Codein #3 300-30 #3 300-30 e #3 MG MG 300-30 MG Terbinafine Terbinafine No 1{table QD Terbinafin HCl 250 MG HCl 250 MG t} e HCl 250 MG Donepezil Donepezil No Donepezil HCl 5 MG HCl 5 MG HCl 5 MG Terbinafine Terbinafine No 1{table QD Terbinafin HCl 250 MG HCl 250 MG t} e HCl 250 MG Carbidopa-L Carbidopa-L No Carbidopa- evodopa evodopa Levodopa 25-100 MG 25-100 MG 25-100 MG Triamcinolo Triamcinolo No BID Triamcinol ne ne one Acetonide Acetonide Acetonide 0.1 % 0.1 % 0.1 % Citalopram Citalopram No Citalopram Hydrobromid Hydrobromid Hydrobromi e 20 MG e 20 MG de 20 MG Citalopram Citalopram No 1{table QD Citalopram Hydrobromid Hydrobromid t} Hydrobromi e 20 MG e 20 MG de 20 MG Metoprolol Metoprolol No 1{table BID Metoprolol Tartrate Tartrate t_with_ Tartrate 100 MG 100 MG food} 100 MG OLANZapine OLANZapine No 1{table OLANZapine 5 MG 5 MG t} 5 MG Nystatin Nystatin No BID Nystatin [id number] UNIT/GM UNIT/GM UNIT/GM Atorvastati Atorvastati No Atorvastat n Calcium n Calcium in Calcium 40 MG 40 MG 40 MG hydroCHLORO hydroCHLORO No 1{table QD hydroCHLOR thiazide thiazide t_in_th Othiazide 12.5 MG 12.5 MG e_morni 12.5 MG ng} hydroCHLORO hydroCHLORO No hydroCHLOR thiazide thiazide Othiazide 12.5 MG 12.5 MG 12.5 MG Levothyroxi Levothyroxi No Levothyrox ne Sodium ne Sodium ine Sodium 112 MCG 112 MCG 112 MCG Acetaminoph Acetaminoph No QID Acetaminop en-Codeine en-Codeine hen-Codein #3 300-30 #3 300-30 e #3 MG MG 300-30 MG Myrbetriq Myrbetriq No 1{table QD Myrbetriq 25 MG 25 MG t} 25 MG + + No + Complete Complete Complete Multi 0.267 Multi 0.267 Multi & 373 MG & 373 MG 0.267 & 373 MG Ketoconazol Ketoconazol No QD Ketoconazo e-Cleanser e-Cleanser le-Cleanse 2 % 2 % r 2 % Levothyroxi Levothyroxi No QD Levothyrox ne Sodium ne Sodium ine Sodium 112 MCG 112 MCG 112 MCG Donepezil Donepezil No Donepezil HCl 5 MG HCl 5 MG HCl 5 MG Terbinafine Terbinafine No 1{table QD Terbinafin HCl 250 MG HCl 250 MG t} e HCl 250 MG Carbidopa-L Carbidopa-L No Carbidopa- evodopa evodopa Levodopa 25-100 MG 25-100 MG 25-100 MG Triamcinolo Triamcinolo No BID Triamcinol ne ne one Acetonide Acetonide Acetonide 0.1 % 0.1 % 0.1 % Citalopram Citalopram No Citalopram Hydrobromid Hydrobromid Hydrobromi e 20 MG e 20 MG de 20 MG Citalopram Citalopram No 1{table QD Citalopram Hydrobromid Hydrobromid t} Hydrobromi e 20 MG e 20 MG de 20 MG Metoprolol Metoprolol No 1{table BID Metoprolol Tartrate Tartrate t_with_ Tartrate 100 MG 100 MG food} 100 MG OLANZapine OLANZapine No 1{table OLANZapine 5 MG 5 MG t} 5 MG Nystatin Nystatin No BID Nystatin [id number] UNIT/GM UNIT/GM UNIT/GM Atorvastati Atorvastati No Atorvastat n Calcium n Calcium in Calcium 40 MG 40 MG 40 MG hydroCHLORO hydroCHLORO No 1{table QD hydroCHLOR thiazide thiazide t_in_th Othiazide 12.5 MG 12.5 MG e_morni 12.5 MG ng} hydroCHLORO hydroCHLORO No hydroCHLOR thiazide thiazide Othiazide 12.5 MG 12.5 MG 12.5 MG Levothyroxi Levothyroxi No Levothyrox ne Sodium ne Sodium ine Sodium 112 MCG 112 MCG 112 MCG Acetaminoph Acetaminoph No QID Acetaminop en-Codeine en-Codeine hen-Codein #3 300-30 #3 300-30 e #3 MG MG 300-30 MG Myrbetriq Myrbetriq No 1{table QD Myrbetriq 25 MG 25 MG t} 25 MG + + No + Complete Complete Complete Multi 0.267 Multi 0.267 Multi & 373 MG & 373 MG 0.267 & 373 MG Ketoconazol Ketoconazol No QD Ketoconazo e-Cleanser e-Cleanser le-Cleanse 2 % 2 % r 2 % Levothyroxi Levothyroxi No QD Levothyrox ne Sodium ne Sodium ine Sodium 112 MCG 112 MCG 112 MCG Citalopram Citalopram No Citalopram Hydrobromid Hydrobromid Hydrobromi e 20 MG e 20 MG de 20 MG Donepezil Donepezil No Donepezil HCl 5 MG HCl 5 MG HCl 5 MG Metoprolol Metoprolol No 1{table BID Metoprolol Tartrate Tartrate t_with_ Tartrate 100 MG 100 MG food} 100 MG Carbidopa-L Carbidopa-L No Carbidopa- evodopa evodopa Levodopa 25-100 MG 25-100 MG 25-100 MG + + No + Complete Complete Complete Multi 0.267 Multi 0.267 Multi & 373 MG & 373 MG 0.267 & 373 MG Nystatin Nystatin No BID Nystatin [id number] UNIT/GM UNIT/GM UNIT/GM Citalopram Citalopram No 1{table QD Citalopram Hydrobromid Hydrobromid t} Hydrobromi e 20 MG e 20 MG de 20 MG OLANZapine OLANZapine No 1{table OLANZapine 5 MG 5 MG t} 5 MG Myrbetriq Myrbetriq No 1{table QD Myrbetriq 25 MG 25 MG t} 25 MG hydroCHLORO hydroCHLORO No 1{table QD hydroCHLOR thiazide thiazide t_in_ Othiazide 12.5 MG 12.5 MG e_morni 12.5 MG ng} Ketoconazol Ketoconazol No QD Ketoconazo e-Cleanser e-Cleanser le-Cleanse 2 % 2 % r 2 % Levothyroxi Levothyroxi No QD Levothyrox ne Sodium ne Sodium ine Sodium 112 MCG 112 MCG 112 MCG Triamcinolo Triamcinolo No BID Triamcinol ne ne one Acetonide Acetonide Acetonide 0.1 % 0.1 % 0.1 % hydroCHLORO hydroCHLORO No hydroCHLOR thiazide thiazide Othiazide 12.5 MG 12.5 MG 12.5 MG Levothyroxi Levothyroxi No Levothyrox ne Sodium ne Sodium ine Sodium 112 MCG 112 MCG 112 MCG Atorvastati Atorvastati No Atorvastat n Calcium n Calcium in Calcium 40 MG 40 MG 40 MG Acetaminoph Acetaminoph No QID Acetaminop en-Codeine en-Codeine hen-Codein #3 300-30 #3 300-30 e #3 MG MG 300-30 MG Terbinafine Terbinafine No 1{table QD Terbinafin HCl 250 MG HCl 250 MG t} e HCl 250 MG Levothyroxi Levothyroxi No QD Levothyrox ne Sodium ne Sodium ine Sodium 112 MCG 112 MCG 112 MCG hydroCHLORO hydroCHLORO No 1{table QD hydroCHLOR thiazide thiazide t_in_th Othiazide 12.5 MG 12.5 MG e_morni 12.5 MG ng} Ketoconazol Ketoconazol No QD Ketoconazo e-Cleanser e-Cleanser le-Cleanse 2 % 2 % r 2 % Carbidopa-L Carbidopa-L No Carbidopa- evodopa evodopa Levodopa 25-100 MG 25-100 MG 25-100 MG Nystatin Nystatin No BID Nystatin [id number] UNIT/GM UNIT/GM UNIT/GM Donepezil Donepezil No Donepezil HCl 5 MG HCl 5 MG HCl 5 MG Triamcinolo Triamcinolo No BID Triamcinol ne ne one Acetonide Acetonide Acetonide 0.1 % 0.1 % 0.1 % Acetaminoph Acetaminoph No QID Acetaminop en-Codeine en-Codeine hen-Codein #3 300-30 #3 300-30 e #3 MG MG 300-30 MG OLANZapine OLANZapine No 1{table OLANZapine 5 MG 5 MG t} 5 MG Citalopram Citalopram No Citalopram Hydrobromid Hydrobromid Hydrobromi e 20 MG e 20 MG de 20 MG Macrobid Macrobid No 1{capsu BID Macrobid 100 MG 100 MG le_with 100 MG _food} Citalopram Citalopram No 1{table QD Citalopram Hydrobromid Hydrobromid t} Hydrobromi e 20 MG e 20 MG de 20 MG + + No + Complete Complete Complete Multi 0.267 Multi 0.267 Multi & 373 MG & 373 MG 0.267 & 373 MG Terbinafine Terbinafine No 1{table QD Terbinafin HCl 250 MG HCl 250 MG t} e HCl 250 MG hydroCHLORO hydroCHLORO No hydroCHLOR thiazide thiazide Othiazide 12.5 MG 12.5 MG 12.5 MG Metoprolol Metoprolol No 1{table BID Metoprolol Tartrate Tartrate t_with_ Tartrate 100 MG 100 MG food} 100 MG Atorvastati Atorvastati No Atorvastat n Calcium n Calcium in Calcium 40 MG 40 MG 40 MG Myrbetriq Myrbetriq No 1{table QD Myrbetriq 25 MG 25 MG t} 25 MG Levothyroxi Levothyroxi No Levothyrox ne Sodium ne Sodium ine Sodium 112 MCG 112 MCG 112 MCG Triamcinolo Triamcinolo No BID Triamcinol ne ne one Acetonide Acetonide Acetonide 0.1 % 0.1 % 0.1 % Nystatin Nystatin No BID Nystatin [id number] UNIT/GM UNIT/GM UNIT/GM Acetaminoph Acetaminoph No QID Acetaminop en-Codeine en-Codeine hen-Codein #3 300-30 #3 300-30 e #3 MG MG 300-30 MG Ketoconazol Ketoconazol No QD Ketoconazo e-Cleanser e-Cleanser le-Cleanse 2 % 2 % r 2 % Citalopram Citalopram No Citalopram Hydrobromid Hydrobromid Hydrobromi e 20 MG e 20 MG de 20 MG Myrbetriq Myrbetriq No 1{table QD Myrbetriq 25 MG 25 MG t} 25 MG hydroCHLORO hydroCHLORO No hydroCHLOR thiazide thiazide Othiazide 12.5 MG 12.5 MG 12.5 MG Metoprolol Metoprolol No 1{table BID Metoprolol Tartrate Tartrate t_with_ Tartrate 100 MG 100 MG food} 100 MG hydroCHLORO hydroCHLORO No 1{table QD hydroCHLOR thiazide thiazide t_in_th Othiazide 12.5 MG 12.5 MG e_morni 12.5 MG ng} Donepezil Donepezil No Donepezil HCl 5 MG HCl 5 MG HCl 5 MG + + No + Complete Complete Complete Multi 0.267 Multi 0.267 Multi & 373 MG & 373 MG 0.267 & 373 MG Macrobid Macrobid No 1{capsu BID Macrobid 100 MG 100 MG le_with 100 MG _food} OLANZapine OLANZapine No 1{table OLANZapine 5 MG 5 MG t} 5 MG Carbidopa-L Carbidopa-L No Carbidopa- evodopa evodopa Levodopa 25-100 MG 25-100 MG 25-100 MG Levothyroxi Levothyroxi No QD Levothyrox ne Sodium ne Sodium ine Sodium 112 MCG 112 MCG 112 MCG Atorvastati Atorvastati No Atorvastat n Calcium n Calcium in Calcium 40 MG 40 MG 40 MG Levothyroxi Levothyroxi No Levothyrox ne Sodium ne Sodium ine Sodium 112 MCG 112 MCG 112 MCG Terbinafine Terbinafine No 1{table QD Terbinafin HCl 250 MG HCl 250 MG t} e HCl 250 MG Citalopram Citalopram No 1{table QD Citalopram Hydrobromid Hydrobromid t} Hydrobromi e 20 MG e 20 MG de 20 MG Ketoconazol Ketoconazol No QD Ketoconazo e-Cleanser e-Cleanser le-Cleanse 2 % 2 % r 2 % Donepezil Donepezil No Donepezil HCl 5 MG HCl 5 MG HCl 5 MG OLANZapine OLANZapine No 1{table OLANZapine 5 MG 5 MG t} 5 MG Terbinafine Terbinafine No 1{table QD Terbinafin HCl 250 MG HCl 250 MG t} e HCl 250 MG Metoprolol Metoprolol No 1{table BID Metoprolol Tartrate Tartrate t_with_ Tartrate 100 MG 100 MG food} 100 MG + + No + Complete Complete Complete Multi 0.267 Multi 0.267 Multi & 373 MG & 373 MG 0.267 & 373 MG Nystatin Nystatin No BID Nystatin [id number] UNIT/GM UNIT/GM UNIT/GM Triamcinolo Triamcinolo No BID Triamcinol ne ne one Acetonide Acetonide Acetonide 0.1 % 0.1 % 0.1 % hydroCHLORO hydroCHLORO No 1{table QD hydroCHLOR thiazide thiazide t_in_th Othiazide 12.5 MG 12.5 MG e_morni 12.5 MG ng} Levothyroxi Levothyroxi No QD Levothyrox ne Sodium ne Sodium ine Sodium 112 MCG 112 MCG 112 MCG Acetaminoph Acetaminoph No QID Acetaminop en-Codeine en-Codeine hen-Codein #3 300-30 #3 300-30 e #3 MG MG 300-30 MG Atorvastati Atorvastati No Atorvastat n Calcium n Calcium in Calcium 40 MG 40 MG 40 MG Myrbetriq Myrbetriq No 1{table QD Myrbetriq 25 MG 25 MG t} 25 MG Carbidopa-L Carbidopa-L No Carbidopa- evodopa evodopa Levodopa 25-100 MG 25-100 MG 25-100 MG Citalopram Citalopram No 1{table QD Citalopram Hydrobromid Hydrobromid t} Hydrobromi e 20 MG e 20 MG de 20 MG Levothyroxi Levothyroxi No Levothyrox ne Sodium ne Sodium ine Sodium 112 MCG 112 MCG 112 MCG Ketoconazol Ketoconazol No QD Ketoconazo e-Cleanser e-Cleanser le-Cleanse 2 % 2 % r 2 % Donepezil Donepezil No Donepezil HCl 5 MG HCl 5 MG HCl 5 MG Citalopram Citalopram No 1{table QD Citalopram Hydrobromid Hydrobromid t} Hydrobromi e 20 MG e 20 MG de 20 MG OLANZapine OLANZapine No 1{table OLANZapine 5 MG 5 MG t} 5 MG Terbinafine Terbinafine No 1{table QD Terbinafin HCl 250 MG HCl 250 MG t} e HCl 250 MG + + No + Complete Complete Complete Multi 0.267 Multi 0.267 Multi & 373 MG & 373 MG 0.267 & 373 MG Nystatin Nystatin No BID Nystatin [id number] UNIT/GM UNIT/GM UNIT/GM Metoprolol Metoprolol No 1{table BID Metoprolol Tartrate Tartrate t_with_ Tartrate 100 MG 100 MG food} 100 MG Atorvastati Atorvastati No Atorvastat n Calcium n Calcium in Calcium 40 MG 40 MG 40 MG Acetaminoph Acetaminoph No QID Acetaminop en-Codeine en-Codeine hen-Codein #3 300-30 #3 300-30 e #3 MG MG 300-30 MG Levothyroxi Levothyroxi No QD Levothyrox ne Sodium ne Sodium ine Sodium 112 MCG 112 MCG 112 MCG hydroCHLORO hydroCHLORO No 1{table QD hydroCHLOR thiazide thiazide t_in_th Othiazide 12.5 MG 12.5 MG e_morni 12.5 MG ng} Myrbetriq Myrbetriq No 1{table QD Myrbetriq 25 MG 25 MG t} 25 MG Carbidopa-L Carbidopa-L No Carbidopa- evodopa evodopa Levodopa 25-100 MG 25-100 MG 25-100 MG Triamcinolo Triamcinolo No BID Triamcinol ne ne one Acetonide Acetonide Acetonide 0.1 % 0.1 % 0.1 % Levothyroxi Levothyroxi No Levothyrox ne Sodium ne Sodium ine Sodium 112 MCG 112 MCG 112 MCG Ketoconazol Ketoconazol No QD Ketoconazo e-Cleanser e-Cleanser le-Cleanse 2 % 2 % r 2 % Terbinafine Terbinafine No 1{table QD Terbinafin HCl 250 MG HCl 250 MG t} e HCl 250 MG Citalopram Citalopram No 1{table QD Citalopram Hydrobromid Hydrobromid t} Hydrobromi e 20 MG e 20 MG de 20 MG OLANZapine OLANZapine No 1{table OLANZapine 5 MG 5 MG t} 5 MG Myrbetriq Myrbetriq No 1{table QD Myrbetriq 25 MG 25 MG t} 25 MG + + No + Complete Complete Complete Multi 0.267 Multi 0.267 Multi & 373 MG & 373 MG 0.267 & 373 MG Nystatin Nystatin No BID Nystatin [id number] UNIT/GM UNIT/GM UNIT/GM Metoprolol Metoprolol No 1{table BID Metoprolol Tartrate Tartrate t_with_ Tartrate 100 MG 100 MG food} 100 MG Atorvastati Atorvastati No Atorvastat n Calcium n Calcium in Calcium 40 MG 40 MG 40 MG Acetaminoph Acetaminoph No QID Acetaminop en-Codeine en-Codeine hen-Codein #3 300-30 #3 300-30 e #3 MG MG 300-30 MG Levothyroxi Levothyroxi No Levothyrox ne Sodium ne Sodium ine Sodium 112 MCG 112 MCG 112 MCG Levothyroxi Levothyroxi No QD Levothyrox ne Sodium ne Sodium ine Sodium 112 MCG 112 MCG 112 MCG hydroCHLORO hydroCHLORO No 1{table QD hydroCHLOR thiazide thiazide t_in_th Othiazide 12.5 MG 12.5 MG e_morni 12.5 MG ng} Carbidopa-L Carbidopa-L No Carbidopa- evodopa evodopa Levodopa 25-100 MG 25-100 MG 25-100 MG Triamcinolo Triamcinolo No BID Triamcinol ne ne one Acetonide Acetonide Acetonide 0.1 % 0.1 % 0.1 % Donepezil Donepezil No Donepezil HCl 5 MG HCl 5 MG HCl 5 MG Ketoconazol Ketoconazol No QD Ketoconazo e-Cleanser e-Cleanser le-Cleanse 2 % 2 % r 2 % Levothyroxi Levothyroxi No Levothyrox ne Sodium ne Sodium ine Sodium 112 MCG 112 MCG 112 MCG Carbidopa-L Carbidopa-L No Carbidopa- evodopa evodopa Levodopa 25-100 MG 25-100 MG 25-100 MG Myrbetriq Myrbetriq No 1{table QD Myrbetriq 25 MG 25 MG t} 25 MG OLANZapine OLANZapine No 1{table OLANZapine 5 MG 5 MG t} 5 MG Atorvastati Atorvastati No Atorvastat n Calcium n Calcium in Calcium 40 MG 40 MG 40 MG Nystatin Nystatin No BID Nystatin [id number] UNIT/GM UNIT/GM UNIT/GM hydroCHLORO hydroCHLORO No 1{table QD hydroCHLOR thiazide thiazide t_in_ Othiazide 12.5 MG 12.5 MG e_morni 12.5 MG ng} Donepezil Donepezil No Donepezil HCl 5 MG HCl 5 MG HCl 5 MG Triamcinolo Triamcinolo No BID Triamcinol ne ne one Acetonide Acetonide Acetonide 0.1 % 0.1 % 0.1 % Citalopram Citalopram No 1{table QD Citalopram Hydrobromid Hydrobromid t} Hydrobromi e 20 MG e 20 MG de 20 MG + + No + Complete Complete Complete Multi 0.267 Multi 0.267 Multi & 373 MG & 373 MG 0.267 & 373 MG Levothyroxi Levothyroxi No QD Levothyrox ne Sodium ne Sodium ine Sodium 112 MCG 112 MCG 112 MCG Acetaminoph Acetaminoph No QID Acetaminop en-Codeine en-Codeine hen-Codein #3 300-30 #3 300-30 e #3 MG MG 300-30 MG Metoprolol Metoprolol No 1{table BID Metoprolol Tartrate Tartrate t_with_ Tartrate 100 MG 100 MG food} 100 MG Terbinafine Terbinafine No 1{table QD Terbinafin HCl 250 MG HCl 250 MG t} e HCl 250 MG Ketoconazol Ketoconazol No QD Ketoconazo e-Cleanser e-Cleanser le-Cleanse 2 % 2 % r 2 % Levothyroxi Levothyroxi No Levothyrox ne Sodium ne Sodium ine Sodium 112 MCG 112 MCG 112 MCG Carbidopa-L Carbidopa-L No Carbidopa- evodopa evodopa Levodopa 25-100 MG 25-100 MG 25-100 MG Myrbetriq Myrbetriq No 1{table QD Myrbetriq 25 MG 25 MG t} 25 MG OLANZapine OLANZapine No 1{table OLANZapine 5 MG 5 MG t} 5 MG Atorvastati Atorvastati No Atorvastat n Calcium n Calcium in Calcium 40 MG 40 MG 40 MG Nystatin Nystatin No BID Nystatin [id number] UNIT/GM UNIT/GM UNIT/GM hydroCHLORO hydroCHLORO No 1{table QD hydroCHLOR thiazide thiazide t_in_ Othiazide 12.5 MG 12.5 MG e_morni 12.5 MG ng} Donepezil Donepezil No Donepezil HCl 5 MG HCl 5 MG HCl 5 MG Triamcinolo Triamcinolo No BID Triamcinol ne ne one Acetonide Acetonide Acetonide 0.1 % 0.1 % 0.1 % Citalopram Citalopram No 1{table QD Citalopram Hydrobromid Hydrobromid t} Hydrobromi e 20 MG e 20 MG de 20 MG + + No + Complete Complete Complete Multi 0.267 Multi 0.267 Multi & 373 MG & 373 MG 0.267 & 373 MG Levothyroxi Levothyroxi No QD Levothyrox ne Sodium ne Sodium ine Sodium 112 MCG 112 MCG 112 MCG Acetaminoph Acetaminoph No QID Acetaminop en-Codeine en-Codeine hen-Codein #3 300-30 #3 300-30 e #3 MG MG 300-30 MG Metoprolol Metoprolol No 1{table BID Metoprolol Tartrate Tartrate t_with_ Tartrate 100 MG 100 MG food} 100 MG Terbinafine Terbinafine No 1{table QD Terbinafin HCl 250 MG HCl 250 MG t} e HCl 250 MG Ketoconazol Ketoconazol No QD Ketoconazo e-Cleanser e-Cleanser le-Cleanse 2 % 2 % r 2 % Levothyroxi Levothyroxi No Levothyrox ne Sodium ne Sodium ine Sodium 112 MCG 112 MCG 112 MCG Carbidopa-L Carbidopa-L No Carbidopa- evodopa evodopa Levodopa 25-100 MG 25-100 MG 25-100 MG Myrbetriq Myrbetriq No 1{table QD Myrbetriq 25 MG 25 MG t} 25 MG OLANZapine OLANZapine No 1{table OLANZapine 5 MG 5 MG t} 5 MG Atorvastati Atorvastati No Atorvastat n Calcium n Calcium in Calcium 40 MG 40 MG 40 MG Nystatin Nystatin No BID Nystatin [id number] UNIT/GM UNIT/GM UNIT/GM hydroCHLORO hydroCHLORO No 1{table QD hydroCHLOR thiazide thiazide t_in_th Othiazide 12.5 MG 12.5 MG e_morni 12.5 MG ng} Donepezil Donepezil No Donepezil HCl 5 MG HCl 5 MG HCl 5 MG Triamcinolo Triamcinolo No BID Triamcinol ne ne one Acetonide Acetonide Acetonide 0.1 % 0.1 % 0.1 % Citalopram Citalopram No 1{table QD Citalopram Hydrobromid Hydrobromid t} Hydrobromi e 20 MG e 20 MG de 20 MG + + No + Complete Complete Complete Multi 0.267 Multi 0.267 Multi & 373 MG & 373 MG 0.267 & 373 MG Levothyroxi Levothyroxi No QD Levothyrox ne Sodium ne Sodium ine Sodium 112 MCG 112 MCG 112 MCG Acetaminoph Acetaminoph No QID Acetaminop en-Codeine en-Codeine hen-Codein #3 300-30 #3 300-30 e #3 MG MG 300-30 MG Metoprolol Metoprolol No 1{table BID Metoprolol Tartrate Tartrate t_with_ Tartrate 100 MG 100 MG food} 100 MG Terbinafine Terbinafine No 1{table QD Terbinafin HCl 250 MG HCl 250 MG t} e HCl 250 MG Ketoconazol Ketoconazol No QD Ketoconazo e-Cleanser e-Cleanser le-Cleanse 2 % 2 % r 2 % Levothyroxi Levothyroxi No Levothyrox ne Sodium ne Sodium ine Sodium 112 MCG 112 MCG 112 MCG Carbidopa-L Carbidopa-L No Carbidopa- evodopa evodopa Levodopa 25-100 MG 25-100 MG 25-100 MG Myrbetriq Myrbetriq No 1{table QD Myrbetriq 25 MG 25 MG t} 25 MG OLANZapine OLANZapine No 1{table OLANZapine 5 MG 5 MG t} 5 MG Atorvastati Atorvastati No Atorvastat n Calcium n Calcium in Calcium 40 MG 40 MG 40 MG Nystatin Nystatin No BID Nystatin [id number] UNIT/GM UNIT/GM UNIT/GM hydroCHLORO hydroCHLORO No 1{table QD hydroCHLOR thiazide thiazide t_in_th Othiazide 12.5 MG 12.5 MG e_morni 12.5 MG ng} Donepezil Donepezil No Donepezil HCl 5 MG HCl 5 MG HCl 5 MG Triamcinolo Triamcinolo No BID Triamcinol ne ne one Acetonide Acetonide Acetonide 0.1 % 0.1 % 0.1 % Citalopram Citalopram No 1{table QD Citalopram Hydrobromid Hydrobromid t} Hydrobromi e 20 MG e 20 MG de 20 MG + + No + Complete Complete Complete Multi 0.267 Multi 0.267 Multi & 373 MG & 373 MG 0.267 & 373 MG Levothyroxi Levothyroxi No QD Levothyrox ne Sodium ne Sodium ine Sodium 112 MCG 112 MCG 112 MCG Acetaminoph Acetaminoph No QID Acetaminop en-Codeine en-Codeine hen-Codein #3 300-30 #3 300-30 e #3 MG MG 300-30 MG Metoprolol Metoprolol No 1{table BID Metoprolol Tartrate Tartrate t_with_ Tartrate 100 MG 100 MG food} 100 MG Terbinafine Terbinafine No 1{table QD Terbinafin HCl 250 MG HCl 250 MG t} e HCl 250 MG Ketoconazol Ketoconazol No QD Ketoconazo e-Cleanser e-Cleanser le-Cleanse 2 % 2 % r 2 % Levothyroxi Levothyroxi No Levothyrox ne Sodium ne Sodium ine Sodium 112 MCG 112 MCG 112 MCG Carbidopa-L Carbidopa-L No Carbidopa- evodopa evodopa Levodopa 25-100 MG 25-100 MG 25-100 MG Myrbetriq Myrbetriq No 1{table QD Myrbetriq 25 MG 25 MG t} 25 MG OLANZapine OLANZapine No 1{table OLANZapine 5 MG 5 MG t} 5 MG Atorvastati Atorvastati No Atorvastat n Calcium n Calcium in Calcium 40 MG 40 MG 40 MG Nystatin Nystatin No BID Nystatin [id number] UNIT/GM UNIT/GM UNIT/GM hydroCHLORO hydroCHLORO No 1{table QD hydroCHLOR thiazide thiazide t_in_th Othiazide 12.5 MG 12.5 MG e_morni 12.5 MG ng} Donepezil Donepezil No Donepezil HCl 5 MG HCl 5 MG HCl 5 MG Triamcinolo Triamcinolo No BID Triamcinol ne ne one Acetonide Acetonide Acetonide 0.1 % 0.1 % 0.1 % Citalopram Citalopram No 1{table QD Citalopram Hydrobromid Hydrobromid t} Hydrobromi e 20 MG e 20 MG de 20 MG + + No + Complete Complete Complete Multi 0.267 Multi 0.267 Multi & 373 MG & 373 MG 0.267 & 373 MG Levothyroxi Levothyroxi No QD Levothyrox ne Sodium ne Sodium ine Sodium 112 MCG 112 MCG 112 MCG Acetaminoph Acetaminoph No QID Acetaminop en-Codeine en-Codeine hen-Codein #3 300-30 #3 300-30 e #3 MG MG 300-30 MG Metoprolol Metoprolol No 1{table BID Metoprolol Tartrate Tartrate t_with_ Tartrate 100 MG 100 MG food} 100 MG Terbinafine Terbinafine No 1{table QD Terbinafin HCl 250 MG HCl 250 MG t} e HCl 250 MG Ketoconazol Ketoconazol No QD Ketoconazo e-Cleanser e-Cleanser le-Cleanse 2 % 2 % r 2 % Levothyroxi Levothyroxi No Levothyrox ne Sodium ne Sodium ine Sodium 112 MCG 112 MCG 112 MCG Carbidopa-L Carbidopa-L No Carbidopa- evodopa evodopa Levodopa 25-100 MG 25-100 MG 25-100 MG Myrbetriq Myrbetriq No 1{table QD Myrbetriq 25 MG 25 MG t} 25 MG OLANZapine OLANZapine No 1{table OLANZapine 5 MG 5 MG t} 5 MG Atorvastati Atorvastati No Atorvastat n Calcium n Calcium in Calcium 40 MG 40 MG 40 MG Nystatin Nystatin No BID Nystatin [id number] UNIT/GM UNIT/GM UNIT/GM hydroCHLORO hydroCHLORO No 1{table QD hydroCHLOR thiazide thiazide t_in_th Othiazide 12.5 MG 12.5 MG e_morni 12.5 MG ng} Donepezil Donepezil No Donepezil HCl 5 MG HCl 5 MG HCl 5 MG Triamcinolo Triamcinolo No BID Triamcinol ne ne one Acetonide Acetonide Acetonide 0.1 % 0.1 % 0.1 % Citalopram Citalopram No 1{table QD Citalopram Hydrobromid Hydrobromid t} Hydrobromi e 20 MG e 20 MG de 20 MG + + No + Complete Complete Complete Multi 0.267 Multi 0.267 Multi & 373 MG & 373 MG 0.267 & 373 MG Levothyroxi Levothyroxi No QD Levothyrox ne Sodium ne Sodium ine Sodium 112 MCG 112 MCG 112 MCG Acetaminoph Acetaminoph No QID Acetaminop en-Codeine en-Codeine hen-Codein #3 300-30 #3 300-30 e #3 MG MG 300-30 MG Metoprolol Metoprolol No 1{table BID Metoprolol Tartrate Tartrate t_with_ Tartrate 100 MG 100 MG food} 100 MG Terbinafine Terbinafine No 1{table QD Terbinafin HCl 250 MG HCl 250 MG t} e HCl 250 MG Ketoconazol Ketoconazol No QD Ketoconazo e-Cleanser e-Cleanser le-Cleanse 2 % 2 % r 2 % Levothyroxi Levothyroxi No Levothyrox ne Sodium ne Sodium ine Sodium 112 MCG 112 MCG 112 MCG Carbidopa-L Carbidopa-L No Carbidopa- evodopa evodopa Levodopa 25-100 MG 25-100 MG 25-100 MG Myrbetriq Myrbetriq No 1{table QD Myrbetriq 25 MG 25 MG t} 25 MG OLANZapine OLANZapine No 1{table OLANZapine 5 MG 5 MG t} 5 MG Atorvastati Atorvastati No Atorvastat n Calcium n Calcium in Calcium 40 MG 40 MG 40 MG Nystatin Nystatin No BID Nystatin [id number] UNIT/GM UNIT/GM UNIT/GM hydroCHLORO hydroCHLORO No 1{table QD hydroCHLOR thiazide thiazide t_in_th Othiazide 12.5 MG 12.5 MG e_morni 12.5 MG ng} Donepezil Donepezil No Donepezil HCl 5 MG HCl 5 MG HCl 5 MG Triamcinolo Triamcinolo No BID Triamcinol ne ne one Acetonide Acetonide Acetonide 0.1 % 0.1 % 0.1 % Citalopram Citalopram No 1{table QD Citalopram Hydrobromid Hydrobromid t} Hydrobromi e 20 MG e 20 MG de 20 MG + + No + Complete Complete Complete Multi 0.267 Multi 0.267 Multi & 373 MG & 373 MG 0.267 & 373 MG Levothyroxi Levothyroxi No QD Levothyrox ne Sodium ne Sodium ine Sodium 112 MCG 112 MCG 112 MCG Acetaminoph Acetaminoph No QID Acetaminop en-Codeine en-Codeine hen-Codein #3 300-30 #3 300-30 e #3 MG MG 300-30 MG Metoprolol Metoprolol No 1{table BID Metoprolol Tartrate Tartrate t_with_ Tartrate 100 MG 100 MG food} 100 MG Terbinafine Terbinafine No 1{table QD Terbinafin HCl 250 MG HCl 250 MG t} e HCl 250 MG Ketoconazol Ketoconazol No QD Ketoconazo e-Cleanser e-Cleanser le-Cleanse 2 % 2 % r 2 % + + No + Complete Complete Complete Multi 0.267 Multi 0.267 Multi & 373 MG & 373 MG 0.267 & 373 MG Terbinafine Terbinafine No 1{table QD Terbinafin HCl 250 MG HCl 250 MG t} e HCl 250 MG Nystatin Nystatin No BID Nystatin [id number] 353607 [id number] UNIT/GM UNIT/GM UNIT/GM Metoprolol Metoprolol No 1{table BID Metoprolol Tartrate Tartrate t_with_ Tartrate 100 MG 100 MG food} 100 MG Levothyroxi Levothyroxi No Levothyrox ne Sodium ne Sodium ine Sodium 112 MCG 112 MCG 112 MCG OLANZapine OLANZapine No 1{table OLANZapine 5 MG 5 MG t} 5 MG Citalopram Citalopram No Citalopram Hydrobromid Hydrobromid Hydrobromi e 20 MG e 20 MG de 20 MG Acetaminoph Acetaminoph No QID Acetaminop en-Codeine en-Codeine hen-Codein #3 300-30 #3 300-30 e #3 MG MG 300-30 MG Levothyroxi Levothyroxi No QD Levothyrox ne Sodium ne Sodium ine Sodium 112 MCG 112 MCG 112 MCG Citalopram Citalopram No 1{table QD Citalopram Hydrobromid Hydrobromid t} Hydrobromi e 20 MG e 20 MG de 20 MG Triamcinolo Triamcinolo No BID Triamcinol ne ne one Acetonide Acetonide Acetonide 0.1 % 0.1 % 0.1 % Donepezil Donepezil No Donepezil HCl 5 MG HCl 5 MG HCl 5 MG hydroCHLORO hydroCHLORO No 1{table QD hydroCHLOR thiazide thiazide t_in_ Othiazide 12.5 MG 12.5 MG e_morni 12.5 MG ng} Myrbetriq Myrbetriq No 1{table QD Myrbetriq 25 MG 25 MG t} 25 MG Atorvastati Atorvastati No Atorvastat n Calcium n Calcium in Calcium 40 MG 40 MG 40 MG Carbidopa-L Carbidopa-L No Carbidopa- evodopa evodopa Levodopa 25-100 MG 25-100 MG 25-100 MG Carbidopa-L Carbidopa-L No Carbidopa- evodopa evodopa Levodopa 25-100 MG 25-100 MG 25-100 MG Ketoconazol Ketoconazol No QD Ketoconazo e-Cleanser e-Cleanser le-Cleanse 2 % 2 % r 2 % + + No + Complete Complete Complete Multi 0.267 Multi 0.267 Multi & 373 MG & 373 MG 0.267 & 373 MG Terbinafine Terbinafine No 1{table QD Terbinafin HCl 250 MG HCl 250 MG t} e HCl 250 MG Nystatin Nystatin No BID Nystatin [id number] UNIT/GM UNIT/GM UNIT/GM Metoprolol Metoprolol No 1{table BID Metoprolol Tartrate Tartrate t_with_ Tartrate 100 MG 100 MG food} 100 MG Levothyroxi Levothyroxi No Levothyrox ne Sodium ne Sodium ine Sodium 112 MCG 112 MCG 112 MCG OLANZapine OLANZapine No 1{table OLANZapine 5 MG 5 MG t} 5 MG Citalopram Citalopram No Citalopram Hydrobromid Hydrobromid Hydrobromi e 20 MG e 20 MG de 20 MG Acetaminoph Acetaminoph No QID Acetaminop en-Codeine en-Codeine hen-Codein #3 300-30 #3 300-30 e #3 MG MG 300-30 MG Levothyroxi Levothyroxi No QD Levothyrox ne Sodium ne Sodium ine Sodium 112 MCG 112 MCG 112 MCG Citalopram Citalopram No 1{table QD Citalopram Hydrobromid Hydrobromid t} Hydrobromi e 20 MG e 20 MG de 20 MG Triamcinolo Triamcinolo No BID Triamcinol ne ne one Acetonide Acetonide Acetonide 0.1 % 0.1 % 0.1 % Donepezil Donepezil No Donepezil HCl 5 MG HCl 5 MG HCl 5 MG hydroCHLORO hydroCHLORO No 1{table QD hydroCHLOR thiazide thiazide t_in_th Othiazide 12.5 MG 12.5 MG e_morni 12.5 MG ng} Myrbetriq Myrbetriq No 1{table QD Myrbetriq 25 MG 25 MG t} 25 MG Atorvastati Atorvastati No Atorvastat n Calcium n Calcium in Calcium 40 MG 40 MG 40 MG Carbidopa-L Carbidopa-L No Carbidopa- evodopa evodopa Levodopa 25-100 MG 25-100 MG 25-100 MG Carbidopa-L Carbidopa-L No Carbidopa- evodopa evodopa Levodopa 25-100 MG 25-100 MG 25-100 MG Ketoconazol Ketoconazol No QD Ketoconazo e-Cleanser e-Cleanser le-Cleanse 2 % 2 % r 2 % + + No + Complete Complete Complete Multi 0.267 Multi 0.267 Multi & 373 MG & 373 MG 0.267 & 373 MG Terbinafine Terbinafine No 1{table QD Terbinafin HCl 250 MG HCl 250 MG t} e HCl 250 MG Nystatin Nystatin No BID Nystatin [id number] UNIT/GM UNIT/GM UNIT/GM Metoprolol Metoprolol No 1{table BID Metoprolol Tartrate Tartrate t_with_ Tartrate 100 MG 100 MG food} 100 MG Levothyroxi Levothyroxi No Levothyrox ne Sodium ne Sodium ine Sodium 112 MCG 112 MCG 112 MCG OLANZapine OLANZapine No 1{table OLANZapine 5 MG 5 MG t} 5 MG Citalopram Citalopram No Citalopram Hydrobromid Hydrobromid Hydrobromi e 20 MG e 20 MG de 20 MG Acetaminoph Acetaminoph No QID Acetaminop en-Codeine en-Codeine hen-Codein #3 300-30 #3 300-30 e #3 MG MG 300-30 MG Levothyroxi Levothyroxi No QD Levothyrox ne Sodium ne Sodium ine Sodium 112 MCG 112 MCG 112 MCG Citalopram Citalopram No 1{table QD Citalopram Hydrobromid Hydrobromid t} Hydrobromi e 20 MG e 20 MG de 20 MG Triamcinolo Triamcinolo No BID Triamcinol ne ne one Acetonide Acetonide Acetonide 0.1 % 0.1 % 0.1 % Donepezil Donepezil No Donepezil HCl 5 MG HCl 5 MG HCl 5 MG hydroCHLORO hydroCHLORO No 1{table QD hydroCHLOR thiazide thiazide t_in_ Othiazide 12.5 MG 12.5 MG e_morni 12.5 MG ng} Myrbetriq Myrbetriq No 1{table QD Myrbetriq 25 MG 25 MG t} 25 MG Atorvastati Atorvastati No Atorvastat n Calcium n Calcium in Calcium 40 MG 40 MG 40 MG Carbidopa-L Carbidopa-L No Carbidopa- evodopa evodopa Levodopa 25-100 MG 25-100 MG 25-100 MG Carbidopa-L Carbidopa-L No Carbidopa- evodopa evodopa Levodopa 25-100 MG 25-100 MG 25-100 MG Immunizations Ordered Filled Immunization Date Status Comments Sourc e Immunization Name Name SARS-COV-2 COVID-19 2020-06-08 Completed [facility] - ([facility]) 00:00:00 [facility] SARS-COV-2 COVID-19 2020-06-08 Completed [facility] VACCINE - (MODERNA) 00:00:00 [facility] SARS-COV-2 COVID-19 2020-06-08 Completed [facility] VACCINE - (MODERNA) 00:00:00 [facility] SARS-COV-2 COVID-19 2020-06-08 Completed [facility] VACCINE - (MODERNA) 00:00:00 [facility] SARS-COV-2 COVID-19 2020-06-08 Completed [facility] VACCINE - (MODERNA) 00:00:00 [facility] SARS-COV-2 COVID-19 2020-06-08 Completed [facility] VACCINE - (MODERNA) 00:00:00 [facility] SARS-COV-2 COVID-19 2020-06-08 Completed [facility] VACCINE - (MODERNA) 00:00:00 [facility] SARS-COV-2 COVID-19 2020-06-08 Completed [facility] VACCINE - (MODERNA) 00:00:00 [facility] SARS-COV-2 COVID-19 2020-06-08 Completed [facility] VACCINE - (MODERNA) 00:00:00 [facility] SARS-COV-2 COVID-19 2020-06-08 Completed [facility] VACCINE - (MODERNA) 00:00:00 [facility] SARS-COV-2 COVID-19 2020-06-08 Completed [facility] VACCINE - (MODERNA) 00:00:00 [facility] SARS-COV-2 COVID-19 2020-06-08 Completed [facility] VACCINE - (MODERNA) 00:00:00 [facility] SARS-COV-2 COVID-19 2020-06-08 Completed [facility] VACCINE - (MODERNA) 00:00:00 [facility] SARS-COV-2 COVID-19 2020-06-08 Completed [facility] VACCINE - (MODERNA) 00:00:00 [facility] SARS-COV-2 COVID-19 2020-06-08 Completed [facility] VACCINE - (MODERNA) 00:00:00 [facility] FLUZONE HIGH DOSE FLUZONE HIGH DOSE 2019-12-16 Completed [facility] - OVER 65 OVER 65 10:24:00 [facility] FLUZONE HIGH DOSE FLUZONE HIGH DOSE 2019-12-16 Completed [facility] - OVER 65 OVER 65 10:24:00 [facility] FLUZONE HIGH DOSE FLUZONE HIGH DOSE 2019-12-16 Completed [facility] - OVER 65 OVER 65 10:24:00 [facility] FLUZONE HIGH DOSE FLUZONE HIGH DOSE 2019-12-16 Completed [facility] - OVER 65 OVER 65 10:24:00 [facility] FLUZONE HIGH DOSE FLUZONE HIGH DOSE 2019-12-16 Completed [facility] - OVER 65 OVER 65 10:24:00 [facility] FLUZONE HIGH DOSE FLUZONE HIGH DOSE 2019-12-16 Completed [facility] - OVER 65 OVER 65 10:24:00 [facility] FLUZONE HIGH DOSE FLUZONE HIGH DOSE 2019-12-16 Completed [facility] - OVER 65 OVER 65 10:24:00 [facility] FLUZONE HIGH DOSE FLUZONE HIGH DOSE 2019-12-16 Completed [facility] - OVER 65 OVER 65 10:24:00 [facility] FLUZONE HIGH DOSE FLUZONE HIGH DOSE 2019-12-16 Completed [facility] - OVER 65 OVER 65 10:24:00 [facility] FLUZONE HIGH DOSE FLUZONE HIGH DOSE 2019-12-16 Completed [facility] - OVER 65 OVER 65 10:24:00 [facility] FLUZONE HIGH DOSE FLUZONE HIGH DOSE 2019-12-16 Completed [facility] - OVER 65 OVER 65 10:24:00 [facility] FLUZONE HIGH DOSE FLUZONE HIGH DOSE 2019-12-16 Completed [facility] - OVER 65 OVER 65 10:24:00 [facility] FLUZONE HIGH DOSE FLUZONE HIGH DOSE 2019-12-16 Completed [facility] - OVER 65 OVER 65 10:24:00 [facility] FLUZONE HIGH DOSE FLUZONE HIGH DOSE 2019-12-16 Completed [facility] - OVER 65 OVER 65 10:24:00 [facility] FLUZONE HIGH DOSE FLUZONE HIGH DOSE 2019-12-16 Completed [facility] - OVER 65 OVER 65 10:24:00 [facility] FLUZONE HIGH DOSE FLUZONE HIGH DOSE 2019-12-16 Completed [facility] - OVER 65 OVER 65 10:24:00 [facility] FLUZONE HIGH DOSE FLUZONE HIGH DOSE 2019-12-16 Completed [facility] - OVER 65 OVER 65 10:24:00 [facility] FLUZONE HIGH DOSE FLUZONE HIGH DOSE 2019-12-16 Completed [facility] - OVER 65 OVER 65 10:24:00 [facility] FLUZONE HIGH DOSE FLUZONE HIGH DOSE 2019-12-16 Completed [facility] - OVER 65 OVER 65 10:24:00 [facility] FLUZONE HIGH DOSE FLUZONE HIGH DOSE 2019-12-16 Completed [facility] - OVER 65 OVER 65 10:24:00 [facility] FLUZONE HIGH DOSE FLUZONE HIGH DOSE 2019-12-16 Completed [facility] - OVER 65 OVER 65 10:24:00 [facility] FLUZONE HIGH DOSE FLUZONE HIGH DOSE 2019-12-16 Completed [facility] - OVER 65 OVER 65 10:24:00 [facility] FLUZONE HIGH DOSE FLUZONE HIGH DOSE 2019-12-16 Completed [facility] - OVER 65 OVER 65 10:24:00 [facility] FLUZONE HIGH DOSE FLUZONE HIGH DOSE 2019-12-16 Completed [facility] - OVER 65 OVER 65 10:24:00 [facility] FLUZONE HIGH DOSE FLUZONE HIGH DOSE 2019-12-16 Completed [facility] - OVER 65 OVER 65 10:24:00 [facility] FLUZONE HIGH DOSE FLUZONE HIGH DOSE 2019-12-16 Completed [facility] - OVER 65 OVER 65 10:24:00 [facility] FLUZONE HIGH DOSE FLUZONE HIGH DOSE 2019-12-16 Completed [facility] - OVER 65 OVER 65 10:24:00 [facility] FLUZONE HIGH DOSE FLUZONE HIGH DOSE 2019-12-16 Completed [facility] - OVER 65 OVER 65 10:24:00 [facility] FLUZONE HIGH DOSE FLUZONE HIGH DOSE 2019-12-16 Completed [facility] - OVER 65 OVER 65 10:24:00 [facility] FLUZONE HIGH DOSE FLUZONE HIGH DOSE 2019-12-16 Completed [facility] - OVER 65 OVER 65 10:24:00 [facility] FLUZONE HIGH DOSE FLUZONE HIGH DOSE 2019-12-16 Completed [facility] - OVER 65 OVER 65 10:24:00 [facility] FLUZONE HIGH DOSE FLUZONE HIGH DOSE 2019-12-16 Completed [facility] - OVER 65 OVER 65 10:24:00 [facility] FLUZONE HIGH DOSE FLUZONE HIGH DOSE 2019-12-16 Completed [facility] - OVER 65 OVER 65 10:24:00 [facility] FLUZONE HIGH DOSE FLUZONE HIGH DOSE 2019-12-16 Completed [facility] - OVER 65 OVER 65 10:24:00 [facility] FLUZONE HIGH DOSE FLUZONE HIGH DOSE 2019-12-16 Completed [facility] - OVER 65 OVER 65 10:24:00 [facility] FLUZONE HIGH DOSE FLUZONE HIGH DOSE 2019-12-16 Completed [facility] - OVER 65 OVER 65 10:24:00 [facility] FLUZONE HIGH DOSE FLUZONE HIGH DOSE 2019-12-16 Completed [facility] - OVER 65 OVER 65 10:24:00 [facility] Influenza High Dose 2019-12-16 Completed [facility] 00:00:00 [facility] Influenza High Dose 2019-12-16 Completed [facility] of 00:00:00 [facility] Influenza High Dose 2019-12-16 Completed [facility] of 00:00:00 [facility] Influenza High Dose 2019-12-16 Completed [facility] of 00:00:00 [facility] Influenza High Dose 2019-12-16 Completed [facility] of 00:00:00 [facility] Influenza High Dose 2019-12-16 Completed [facility] of 00:00:00 [facility] Influenza High Dose 2019-12-16 Completed [facility] of 00:00:00 [facility] Influenza High Dose 2019-12-16 Completed [facility] of 00:00:00 [facility] Influenza High Dose 2019-12-16 Completed [facility] of 00:00:00 [facility] Influenza High Dose 2019-12-16 Completed [facility] of 00:00:00 [facility] Influenza High Dose 2019-12-16 Completed [facility] of 00:00:00 [facility] Influenza High Dose 2019-12-16 Completed [facility] 00:00:00 [facility] Influenza High Dose 2019-12-16 Completed [facility] of 00:00:00 [facility] Influenza High Dose 2019-12-16 Completed [facility] of 00:00:00 [facility] Influenza High Dose 2019-12-16 Completed [facility] of 00:00:00 [facility] FLUZONE HIGH DOSE FLUZONE HIGH DOSE 2019-12-16 Completed [facility] - OVER 65 OVER 65 00:00:00 [facility] Vital Signs Vital Name Observation Time Observation Value Comments Source Systolic blood 2022-07-16 22:00:00 111 mm[Hg] [facility] Diastolic blood 2022-07-16 22:00:00 79 mm[Hg] [facility] pressure [facility] Heart rate 2022-07-16 22:00:00 63 /min [facility] Respiratory rate 2022-07-16 22:00:00 16 /min [facility] Oxygen saturation in 2022-07-16 22:00:00 92 /min [facility] Arterial blood by [facility] Pulse oximetry Branch Body temperature 2022-07-16 18:02:00 37.11 Misty [facility] Body height 2022-07-16 18:02:00 162.6 cm [facility] Body weight 2022-07-16 18:02:00 76.658 kg [facility] BMI 2022-07-16 18:02:00 29.01 kg/m2 [facility] Systolic blood 2022-07-16 18:05:00 94 mm[Hg] [facility] Diastolic blood 2022-07-16 18:05:00 54 mm[Hg] [facility] Heart rate 2022-07-16 18:05:00 121 /min [facility] Body temperature 2022-07-16 18:05:00 36.5 [address] [facility] Respiratory rate 2022-07-16 18:05:00 24 /min [facility] Body height 2022-07-16 18:05:00 160 cm [facility] Body weight 2022-07-16 18:05:00 76.658 kg [facility] BMI 2022-07-16 18:05:00 29.94 kg/m2 [facility] Oxygen saturation in 2022-07-16 18:05:00 99 /min [facility] Arterial blood by [facility] Pulse oximetry Branch Systolic blood 2022-07-05 16:14:00 109 mm[Hg] [facility] Diastolic blood 2022-07-05 16:14:00 77 mm[Hg] [facility] Heart rate 2022-07-05 16:14:00 62 /min [facility] Body height 2022-07-05 16:14:00 160 cm [facility] Body weight 2022-07-05 16:14:00 76.204 kg [facility] BMI 2022-07-05 16:14:00 29.76 kg/m2 [facility] Systolic blood 2022-06-13 15:32:00 125 mm[Hg] [facility] Diastolic blood 2022-06-13 15:32:00 77 mm[Hg] [facility] Heart rate 2022-06-13 15:32:00 68 /min [facility] Respiratory rate 2022-06-13 15:32:00 18 /min [facility] Body height 2022-06-13 15:32:00 160 cm [facility] Body weight 2022-06-13 15:32:00 77.111 kg [facility] BMI 2022-06-13 15:32:00 30.11 kg/m2 [facility] Oxygen saturation in 2022-06-13 15:32:00 98 /min [facility] Arterial blood by [facility] Pulse oximetry Branch Systolic blood 2022-06-04 16:55:00 111 mm[Hg] [facility] Diastolic blood 2022-06-04 16:55:00 80 mm[Hg] [facility] Heart rate 2022-06-04 16:55:00 64 /min [facility] Respiratory rate 2022-06-04 16:55:00 18 /min [facility] Body height 2022-06-04 16:55:00 160 cm [facility] Body weight 2022-06-04 16:55:00 77.111 kg [facility] BMI 2022-06-04 16:55:00 30.11 kg/m2 [facility] Systolic blood 2022-05-21 20:49:00 106 mm[Hg] [facility] Diastolic blood 2022-05-21 20:49:00 71 mm[Hg] [facility] Heart rate 2022-05-21 20:49:00 72 /min [facility] Respiratory rate 2022-05-21 20:49:00 18 /min [facility] Body height 2022-05-21 20:49:00 162.6 cm [facility] Body weight 2022-05-21 20:49:00 77.111 kg [facility] BMI 2022-05-21 20:49:00 29.18 kg/m2 [facility] Oxygen saturation in 2022-05-21 20:49:00 95 /min [facility] [place] [employer] [facility] Pulse oximetry Branch Systolic blood 2022-04-20 14:00:00 125 mm[Hg] [facility] Diastolic blood 2022-04-20 14:00:00 82 mm[Hg] [facility] Heart rate 2022-04-20 14:00:00 65 /min [facility] Respiratory rate 2022-04-20 14:00:00 16 /min [facility] Oxygen saturation in 2022-04-20 14:00:00 98 /min [facility] [place] [employer] [facility] Pulse oximetry Branch Body temperature 2022-04-20 11:25:00 36.5 Misty [facility] Body height 2022-04-20 11:25:00 162.6 cm [facility] Body weight 2022-04-20 11:25:00 72.576 kg [facility] BMI 2022-04-20 11:25:00 27.46 kg/m2 [facility] Systolic blood 2022-04-09 18:06:00 133 mm[Hg] [facility] pressure [facility] Diastolic blood 2022-04-09 18:06:00 85 mm[Hg] [facility]ity of pressure [facility] Heart rate 2022-04-09 18:06:00 58 /min [facility] ty [facility] Body temperature 2022-04-09 18:06:00 36.44 Misty [facility] of [facility] Respiratory rate 2022-04-09 18:06:00 16 /min [facility] Body height 2022-04-09 18:06:00 160 cm [facility] of [facility] Body weight 2022-04-09 18:06:00 79.379 kg Universi ty [facility] BMI 2022-04-09 18:06:00 31.00 kg/m2 [facility] Oxygen saturation in 2022-04-09 18:06:00 98 /min [facility] Arterial blood by [facility] Pulse oximetry Branch height 2022-02-28 14:00:00 60.5 [in_i] [facility] weight 2022-02-28 14:00:00 176.6 [lb_av] [facility] temperature 2022-02-28 14:00:00 98.2 [degF] [facility] bmi 2022-02-28 14:00:00 33.92 kg/m2 [facility] oximetry 2022-02-28 14:00:00 95 % [facility] respiratory rate 2022-02-28 14:00:00 18 /min Comm on [facility] blood pressure 2022-02-28 14:00:00 135 mm[Hg] [facility] - systolic [facility] blood pressure 2022-02-28 14:00:00 73 mm[Hg] Common [facility] - diastolic [facility] height 2022-02-28 15:20:00 60.5 [in_i] [facility] weight 2022-02-28 15:20:00 176.6 [lb_av] [facility] temperature 2022-02-28 15:20:00 98.2 [degF] Common [facility] bmi 2022-02-28 15:20:00 33.92 kg/m2 Common [facility] oximetry 2022-02-28 15:20:00 95 % Common [facility] respiratory rate 2022-02-28 15:20:00 18 /min Comm on [facility] blood pressure 2022-02-28 15:20:00 135 mm[Hg] Common [facility] - systolic [facility] blood pressure 2022-02-28 15:20:00 73 mm[Hg] Common [facility] - diastolic [facility] Systolic blood 2022-01-16 13:36:00 129 mm[Hg] [facility] Medicine Diastolic blood 2022-01-16 13:36:00 84 mm[Hg] [facility] Medicine Heart rate 2022-01-16 13:36:00 64 /min [facility] Body temperature 2022-01-16 13:36:00 36.56 Misty [facility] Respiratory rate 2022-01-16 13:36:00 16 /min [facility] Body height 2022-01-16 13:36:00 162.6 cm [facility] Body weight 2022-01-16 13:36:00 96.163 kg [facility] BMI 2022-01-16 13:36:00 36.39 kg/m2 [facility] Oxygen saturation in 2022-01-16 13:36:00 97 /min [facility] Arterial blood by [facility] Pulse oximetry Systolic blood 2022-01-03 14:58:00 111 mm[Hg] [facility]ity of [facility] Diastolic blood 2022-01-03 14:58:00 74 mm[Hg] [facility]ive [facility]ity of [facility] Heart rate 2022-01-03 14:58:00 64 /min [facility] Body temperature 2022-01-03 14:58:00 36.61 Misty [facility] Respiratory rate 2022-01-03 14:58:00 18 /min [facility] Body height 2022-01-03 14:58:00 162.6 cm [facility] Body weight 2022-01-03 14:58:00 80.105 kg [facility] BMI 2022-01-03 14:58:00 30.31 kg/m2 [facility] Oxygen saturation in 2022-01-03 14:58:00 95 /min [facility] P[facility] Heart rate 2021-12-20 18:54:00 72 /min [facility] Body height 2021-12-20 18:54:00 162.6 cm [facility] Body weight 2021-12-20 18:54:00 84.823 kg [facility] BMI 2021-12-20 18:54:00 32.10 kg/m2 [facility] Oxygen saturation in 2021-12-20 18:54:00 96 /min [facility] Arterial blood by [facility] manny Pulse oximetry Branch Systolic blood 2021-12-16 18:14:00 130 mm[Hg] [facility] Diastolic blood 2021-12-16 18:14:00 72 mm[Hg] [facility] Heart rate 2021-12-16 18:14:00 67 /min [facility] Body temperature 2021-12-16 16:51:00 36.67 Misty [facility] Respiratory rate 2021-12-16 16:51:00 18 /min [facility] Oxygen saturation in 2021-12-16 16:51:00 90 /min [facility] [place] [employer] [facility] Pulse oximetry Branch Body weight 2021-12-15 10:09:00 84.959 kg [facility] BMI 2021-12-15 10:09:00 33.18 kg/m2 [facility] Body height 2021-12-13 19:26:00 160 cm [facility] Systolic blood 2021-11-28 14:53:00 140 mm[Hg] [facility] Medicine Diastolic blood 2021-11-28 14:53:00 78 mm[Hg] [facility] Medicine Heart rate 2021-11-28 14:51:00 60 /min [facility] Respiratory rate 2021-11-28 14:51:00 16 /min [facility] Body height 2021-11-28 14:51:00 162.6 cm [facility] Body weight 2021-11-28 14:51:00 96.163 kg [facility] BMI 2021-11-28 14:51:00 36.39 kg/m2 [facility] Oxygen saturation in 2021-11-28 14:51:00 96 /min [facility] Arterial blood by [facility] Pulse oximetry height 2021-11-13 10:00:00 60.5 [in_i] [facility] weight 2021-11-13 10:00:00 192 [lb_av] [facility] temperature 2021-11-13 10:00:00 96.7 [degF] [facility] bmi 2021-11-13 10:00:00 36.88 kg/m2 [facility] oximetry 2021-11-13 10:00:00 95 % [facility] respiratory rate 2021-11-13 10:00:00 15 /min Comm on [facility] blood pressure 2021-11-13 10:00:00 102 mm[Hg] [facility] - systolic [facility] blood pressure 2021-11-13 10:00:00 65 mm[Hg] [facility] - diastolic [facility] height 2021-11-01 13:00:00 60.5 [in_i] [facility] weight 2021-11-01 13:00:00 192 [lb_av] [facility] temperature 2021-11-01 13:00:00 96.9 [degF] [facility] bmi 2021-11-01 13:00:00 36.88 kg/m2 [facility] oximetry 2021-11-01 13:00:00 97 % [facility] respiratory rate 2021-11-01 13:00:00 19 /min Comm on [facility] blood pressure 2021-11-01 13:00:00 121 mm[Hg] [facility] - systolic [facility] blood pressure 2021-11-01 13:00:00 72 mm[Hg] [facility] - diastolic [facility] height 2021-09-19 10:30:00 63 [in_i] [facility] weight 2021-09-19 10:30:00 214 [lb_av] [facility] temperature 2021-09-19 10:30:00 97.2 [degF] [facility] bmi 2021-09-19 10:30:00 37.9 kg/m2 [facility] oximetry 2021-09-19 10:30:00 97 % [facility] respiratory rate 2021-09-19 10:30:00 17 /min Comm on [facility] blood pressure 2021-09-19 10:30:00 135 mm[Hg] [facility] - systolic [facility] blood pressure 2021-09-19 10:30:00 70 mm[Hg] [facility] - diastolic [facility] Systolic blood 2021-08-26 18:30:00 130 mm[Hg] Univer [facility]ity of [facility] Diastolic blood 2021-08-26 18:30:00 86 mm[Hg] Unive rsity of pressure [facility] Heart rate 2021-08-26 18:30:00 65 /min Universi [facility] Respiratory rate 2021-08-26 18:30:00 18 /min [facility] O[facility] saturation in 2021-08-26 18:30:00 94 /min [facility] Arterial blood by [facility] Pulse oximetry Branch Body temperature 2021-08-26 15:56:00 36.39 Misty [facility] Body weight 2021-08-26 15:56:00 94.802 kg [facility] BMI 2021-08-26 15:56:00 35.87 kg/m2 [facility] Systolic blood 2021-08-24 14:51:00 91 mm[Hg] [facility] Medicine Diastolic blood 2021-08-24 14:51:00 67 mm[Hg] [facility] Medicine Heart rate 2021-08-24 14:51:00 59 /min [facility] Respiratory rate 2021-08-24 14:51:00 16 /min [facility] Body height 2021-08-24 14:51:00 162.6 cm [facility] Body weight 2021-08-24 14:51:00 96.163 kg [facility] BMI 2021-08-24 14:51:00 36.39 kg/m2 [facility] Oxygen saturation in 2021-08-24 14:51:00 98 /min [facility] Arterial blood by [facility] Pulse oximetry height 2021-07-31 13:00:00 63 [in_i] [facility] weight 2021-07-31 13:00:00 199.0 [lb_av] [facility] temperature 2021-07-31 13:00:00 97.2 [degF] [facility] bmi 2021-07-31 13:00:00 35.25 kg/m2 [facility] oximetry 2021-07-31 13:00:00 96 % [facility] respiratory rate 2021-07-31 13:00:00 19 /min Comm on [facility] blood pressure 2021-07-31 13:00:00 128 mm[Hg] [facility] - systolic [facility] blood pressure 2021-07-31 13:00:00 80 mm[Hg] [facility] - diastolic [facility] height 2021-06-27 13:30:00 63 [in_i] [facility] weight 2021-06-27 13:30:00 201.2 [lb_av] [facility] temperature 2021-06-27 13:30:00 97.3 [degF] [facility] bmi 2021-06-27 13:30:00 35.64 kg/m2 [facility] oximetry 2021-06-27 13:30:00 94 % [facility] respiratory rate 2021-06-27 13:30:00 20 /min Comm on [facility] blood pressure 2021-06-27 13:30:00 139 mm[Hg] [facility] systolic [facility] blood pressure 2021-06-27 13:30:00 84 mm[Hg] [facility] diastolic [facility] Systolic blood 2021-06-05 16:39:00 138 mm[Hg] [facility] pressure Medicine Diastolic blood 2021-06-05 16:39:00 69 mm[Hg] [facility] pressure Medicine Heart rate 2021-06-05 16:39:00 64 /min [facility] Respiratory rate 2021-06-05 16:39:00 16 /min [facility] Body height 2021-06-05 16:39:00 162.6 cm [facility] Body weight 2021-06-05 16:39:00 90.719 kg [facility] BMI 2021-06-05 16:39:00 34.33 kg/m2 [facility] Oxygen saturation in 2021-06-05 16:39:00 98 /min [facility] Arterial blood by Medicine Pulse oximetry height 2021-05-28 13:30:00 63 [in_i] [facility] weight 2021-05-28 13:30:00 202 [lb_av] [facility] temperature 2021-05-28 13:30:00 97.2 [degF] [facility] bmi 2021-05-28 13:30:00 35.78 kg/m2 [facility] oximetry 2021-05-28 13:30:00 96 % [facility] respiratory rate 2021-05-28 13:30:00 18 /min Comm on [facility] blood pressure 2021-05-28 13:30:00 132 mm[Hg] [facility] - systolic [facility] blood pressure 2021-05-28 13:30:00 85 mm[Hg] [facility] - diastolic [facility] height 2021-03-01 14:00:00 63 [in_i] [facility] weight 2021-03-01 14:00:00 190 [lb_av] [facility] temperature 2021-03-01 14:00:00 97.6 [degF] [facility] bmi 2021-03-01 14:00:00 33.65 kg/m2 [facility] oximetry 2021-03-01 14:00:00 93 % [facility] blood pressure 2021-03-01 14:00:00 125 mm[Hg] [facility] - systolic [facility] blood pressure 2021-03-01 14:00:00 83 mm[Hg] [facility] - diastolic [facility] height 2021-01-31 08:20:00 63 [in_i] [facility] weight 2021-01-31 08:20:00 194.2 [lb_av] Common [facility] temperature 2021-01-31 08:20:00 97.4 [degF] [facility] bmi 2021-01-31 08:20:00 34.4 kg/m2 [facility] S [facility] oximetry 2021-01-31 08:20:00 98 % [facility] blood pressure 2021-01-31 08:20:00 140 mm[Hg] [facility] - systolic [facility] blood pressure 2021-01-31 08:20:00 82 mm[Hg] [facility] - diastolic [facility] height 2020-12-21 13:00:00 63 [in_i] [facility] weight 2020-12-21 13:00:00 194.2 [lb_av] [facility] - [facility] temperature 2020-12-21 13:00:00 95.7 [degF] [facility] bmi 2020-12-21 13:00:00 34.40 kg/m2 [facility] oximetry 2020-12-21 13:00:00 98 % [facility] respiratory rate 2020-12-21 13:00:00 16 /min Comm on [facility] blood pressure 2020-12-21 13:00:00 139 mm[Hg] [facility] - systolic [facility] blood pressure 2020-12-21 13:00:00 69 mm[Hg] [facility] - diastolic [facility] Systolic blood 2020-07-12 16:53:00 144 mm[Hg] [facility] pressure Medicine Diastolic blood 2020-07-12 16:53:00 86 mm[Hg] [facility] pressure Medicine Heart rate 2020-07-12 16:53:00 70 /min [facility] Respiratory rate 2020-07-12 16:53:00 15 /min [facility] Body height 2020-07-12 16:53:00 162.6 cm [facility] Body weight 2020-07-12 16:53:00 96.163 kg [facility] BMI 2020-07-12 16:53:00 36.39 kg/m2 [facility] Oxygen saturation in 2020-07-12 16:53:00 96 /min [facility] Arterial blood by [facility] Pulse oximetry Procedures Procedure Date / Time Performing Clinician Source Performed CT ABDOMEN PELVIS W 2022-07-16 20:23[facility]AST 2022-07-16 20:22:30 Grant Oakes [facility] URINALYSIS 2022-07-16 19:11:00 Grant Oakes [facility] LACTIC ACID WHOLE BLOOD 2022-07-16 18:56:00 Grant Oakes [facility] LIPASE 2022-07-16 18:47:00 Champ Grant [facility] COMP. METABOLIC PANEL 2022-07-16 18:47:00 Grant Oakes [facility] ([id number]) [facility] CBC WITH DIFF 2022-07-16 18:47:00 Champ [facility] CONSENT/REFUSAL FOR 2022-07-16 17:50:32 Doctor Unassigned, [facility] DIAGNOSIS AND TREATMENT [facility] POCT URINALYSIS 2022-06-13 16:13[facility]20 12:50:00 Leeroy Kraus [facility] CT STROKE HEAD WO CONTRAST 2022-04-20 11:46:37 Leeroy Kraus [facility] CT STROKE ANGIOGRAM HEAD 2022-04-20 11:46:37 Leeroy Kraus [facility] CT STROKE ANGIOGRAM NECK 2022-04-20 11:46:37 Leeroy Kraus [facility] TROPONIN I 2022-04-20 11:28:00 Leeroy Kraus [facility] BASIC METABOLIC PANEL (NA, 2022-04-20 11:28:00 Leeroy Kraus [facility] K, CL, CO2, GLUCOSE, BUN, Medica l Branch CREATININE, [place]) CBC WITHOUT DIFF 2022-04-20 11:28:00 Leeroy Kraus [facility] PROTHROMBIN TIME / INR 2022-04-20 11:28:00 Leeroy Kraus [facility] ACTIVATED PARTIAL THRMPLAS 2022-04-20 11:28:00 Leeroy Kraus [facility] POCT GLUCOSE (AUTOMATED) 2022-04-20 11:23:00 Leeroy Kraus [facility] CONSENT/REFUSAL FOR 2022-04-20 11:20:31 Doctor Jerrissraghav [facility] DIAGNOSIS AND TREATMENT [facility] NOTICE OF PRIVACY PRACTICES 2022-04-20 11:20:14 Doctor Brittaney jimenez [facility] POCT URINALYSIS 2022-04-09 18:07:00 Sue Grier [facility] MEDICAL RELEASE/CLEARANCE 2022-01-22 05:01:00 Doctor Yakelin [facility] FORMS [facility] MEDICAL RELEASE/CLEARANCE 2022-01-08 05:01:00 Doctor Yakelin [facility] FORMS [facility] DISCLOSURE AND CONSENT, 2022-01-03 05:01:00 Doctor Yakelin, U [facility] MEDICAL AND SURGICAL [facility] PROCEDURES FL UPPER GI SERIES 2022-01-02 14:33:12 Blanca Wolfe [facility] ASSIGNMENT OF BENEFITS 2022-01-02 13:54:55 Doctor Yakelin, Un [facility] Name [facility] BASIC METABOLIC PANEL (NA, 2021-12-16 09:15:00 Rekha Mccann [facility] K, CL, CO2, GLUCOSE, BUN, Medica l Branch CREATININE, [place]) CBC WITH DIFF 2021-12-16 09:15:00 Rekha Mccann [facility] N-TERMINAL PRO-BNP 2021-12-16 09:15:00 Janet Duffy [facility] HB ECG ROUTINE & RHYTHM 2021-12-15 15:42:36 Rekha Mccann [facility] CBC WITH DIFF 2021-12-15 10:48:00 Rekha Mccann [facility] PHOSPHORUS 2021-12-14 11:43:00 Jeevan Roman [facility] CREATINE KINASE 2021-12-14 11:43:00 Jeevan Roman [facility] MAGNESIUM 2021-12-14 11:43:00 Abel [facility] TROPONIN I 2021-12-14 11:43:00 Abel [facility] COMP. METABOLIC PANEL 2021-12-14 11:43:00 Jeevan Roman [facility] ([id number]) [facility] N-TERMINAL PRO-BNP 2021-12-14 11:43:00 Jeevan Roman [facility] TROPONIN I 2021-12-14 08:04:00 Jeevan Roman [facility] CREATINE KINASE 2021-12-14 03:47:00 Abel sophia [facility] URIC ACID 2021-12-14 03:47:00 Abel sophia [facility] FERRITIN SERUM 2021-12-14 03:47:00 Abel sophia [facility] VITAMIN B12, LEVEL 2021-12-14 03:47:00 Jeevan Roman [facility] TROPONIN I 2021-12-14 03:47:00 Abel sophia [facility] THYROID STIMULATING HORMONE 2021-12-14 03:47:00 Abel sophia [facility] LIPID PANEL ([id number])(TOTAL 2021-12-14 03:47:00 [facility] CHOLESTER[facility], TRIGLYCERIDES, [facility] HDL) IRON PANEL 2021-12-14 03:47:00 Jeevan Roman [facility] SEDIMENTATION RATE 2021-12-14 03:47:00 Jeevan Roman [facility] PROTHROMBIN TIME / INR 2021-12-14 03:47:00 Jeevan Roman [facility] URINE CULTURE 2021-12-14 03:47:00 Jeevan Roman [facility] VITAMIN D, 25-OH 2021-12-14 03:47:00 Abel [facility] PROTEIN CREAT RATIO URINE 2021-12-14 03:47:00 Jeevan Roman [facility] RANDOM [facility] UREA NITROGEN, URINE RANDOM 2021-12-14 03:47:00 Abel sophia [facility] SODIUM, URINE RANDOM 2021-12-14 03:47:00 Jeevan Roman [facility] PROCALCITONIN 2021-12-14 03:47:00 Jeevan Roman [facility] AC VBG + LACTIC ACID 2021-12-14 03:47:00 Jeevan Roman [facility] URINALYSIS 2021-12-13 23:54:00 Halina Kurtz [facility] XR CHEST 1 VW 2021-12-13 22:50:00 Halina Kurtz [facility] COVID-19 (ID NOW RAPID 2021-12-13 22:43:00 [facility] Branch LAB ONLY COVID 2021-12-13 22:43:00 Halina Kurtz [facility] INTERPRETATION [facility] CT ABDOMEN PELVIS W 2021-12-13 21:35:23 Halina Kurtz [facility] CBC WITH DIFF 2021-12-13 20:57:00 Halina Kurtz [facility] GLYCOSYLATED HEMOGLOBIN 2021-12-13 20:57:00 Jeevan Roman [facility] ([id number]) Medical Branch LIPASE 2021-12-13 20:28:00 Halina Kurtz [facility] MAGNESIUM 2021-12-13 20:28:00 Halina Kurtz [facility] TROPONIN I 2021-12-13 20:28:00 Halina Kurtz [facility] COMP. METABOLIC PANEL 2021-12-13 20:28:00 Halina Kurtz [facility] ([id number]) [facility] N-TERMINAL PRO-BNP 2021-12-13 20:28:00 Halina Kurtz [facility] HB ECG ROUTINE & RHYTHM 2021-12-13 20:15:29 Halina Kurtz [facility] CONSENT/REFUSAL FOR 2021-12-13 19:13:23 Doctor Unassigned, [facility] DIAGNOSIS AND TREATMENT [facility] BRAIN NATRIURETIC PEPTIDE 2021-11-28 10:56:00 [facility] CBC W/O DIFF W PLT 2021-11-28 10:56:00 [facility] LIPID PANEL 2021-11-28 10:56:00 [facility] COMPREHENSIVE METABOLIC 2021-11-28 10:56:00 [facility] BRAIN NATRIURETIC PEPTIDE 2021-11-28 10:19:36 [facility] CBC W/O DIFF W PLT 2021-11-28 10:19:36 [facility] LIPID PANEL 2021-11-28 10:19:36 [facility] COMPREHENSIVE METABOLIC 2021-11-28 10:19:36 [facility] EXTERNAL PROVIDER RECORDS 2021-11-09 05:01:00 Doctor Hamlin [facility] Name [facility] CT HEAD WO CONTRAST 2021-08-26 17:06:03 Halina Kurtz [facility] XR CHEST 1 VW 2021-08-26 16:47:00 Halina Kurtz [facility] URINALYSIS 2021-08-26 16:34:00 Halina Kurtz [facility] TROPONIN I 2021-08-26 16:21:00 Halina Kurtz [facility] COMP. METABOLIC PANEL 2021-08-26 16:21:00 Halina Kurtz [facility] ([id number]) [facility] CBC WITH DIFF 2021-08-26 16:21:00 Halina Kurtz [facility] NOTICE OF PRIVACY PRACTICES 2021-08-26 15:51:02 Doctor Brittaney jimenez [facility] Name [facility] CONSENT/REFUSAL FOR 2021-08-26 15:50:43 Doctor Hamlin [facility] DIAGNOSIS AND TREATMENT [facility] ELECTROCARDIOGRAM COMPLETE 2021-08-24 14:45:00 Moisés Gann [facility] ELECTROCARDIOGRAM COMPLETE 2021-08-24 12:31:40 B [facility] AMB REF TO GERIATRICS 2021-08-24 11:05:00 [facility] ELECTROCARDIOGRAM COMPLETE 2021-08-24 09:45:00 B [facility] XR CHEST 2 VIEWS 2021-06-05 12:39:00 Moisés Gann [facility] ELECTROCARDIOGRAM COMPLETE 2020-07-12 17:14:52 Moisés Gann [facility] AUTHORIZATION FOR RELEASE 2019-05-18 06:01:00 Doctor Unassigned, [facility] ELECTROCARDIOGRAM COMPLETE 2014-10-04 15:30:46 B [facility] Plan of Care Planned Activity Planned Date Details Comments Source Future Scheduled 2022-11-[address] [facility] Test 00:00:00 (Season Ended) [code = Medic al Center INFLUENZA VACCINE (Season Ended)] Future Scheduled 2022-11-[address] [facility] Test 00:00:00 (Season Ended) [code = Medic al Center INFLUENZA VACCINE (Season Ended)] Future Scheduled 2022-07-16 COVID-19 [facility]ACCINE (#1) [facility] 12:06:28 [code = COVID-19 Hospital VACCINE (#1)] Future Scheduled 2022-07-16 SHINGLES VACCINES (1 [facility] 12:06:28 2) [code = SHINGLES Hospital VACCINES (1 of 2)] Future Scheduled 2022-07-16 65+ PNEUMOCOCCAL [facility] Test 12:06:28 VACCINE (1 - PCV) [code Hosp ital = 65+ PNEUMOCOCCAL VACCINE (1 - PCV)] Future Scheduled 2022-07-16 INFLUENZA VACCINE [code [facility] 12:06:28 = INFLUENZA VACCINE] Hospita l Future Scheduled 2022-03-[address] [facility] Test 00:00:00 (12+) [code = Medical Center DEPRESSION SCREENING (12+)] Future Scheduled 2022-03-31 FALLS RISK SCREENING [facility] Test 00:00:00 [code = FALLS RISK Medical C enter SCREENING] Future Scheduled 2022-03-[address] [facility] Test 00:00:00 (12+) [code = Medical Center DEPRESSION SCREENING (12+)] Future Scheduled 2022-03-31 FALLS RISK SCREENING [facility] Test 00:00:00 [code = FALLS RISK Medical C enter SCREENING] Future Scheduled 2022-03-[address] [facility] Test 00:00:00 (12+) [code = Medical Center DEPRESSION SCREENING (12+)] Future Scheduled 2022-03-31 FALLS RISK SCREENING [facility] Test 00:00:00 [code = FALLS RISK Medical C enter SCREENING] Future Scheduled 2022-01-16 COVID-19 Vaccine (#1) [employer] Test 16:23:26 [code = COVID-19 of Medicine Vaccine (#1)] Future Scheduled 2022-01-16 TETANUS SHOT (ADULT) [employer] Test 16:23:26 [code = TETANUS SHOT of Medi cine (ADULT)] Future Scheduled 2022-01-16 BMI FOLLOW UP PLAN [employer] Test 16:23:26 [code = BMI FOLLOW UP of Med icine PLAN] Future Scheduled 2022-01-16 ZOSTER VACCINE (1 of 2) [facility] Test 16:23:26 [code = ZOSTER VACCINE of Me dicine (1 of 2)] Future Scheduled 2022-01-16 Screening for [facility] [employer] Test 16:23:26 osteoporosis of Medicine (procedure) [code = 995617051] Future Scheduled 2022-01-16 Pneumococcal 65+ (1 - [employer] Test 16:23:26 PCV) [code = of Medicine Pneumococcal 65+ (1 - PCV)] Future Scheduled 2022-01-16 MEDICARE AWV (Initial) [employer] Test 16:23:26 [code = MEDICARE AWV of Medi cine (Initial)] Future Scheduled 2022-01-16 FLU VACCINE > 6 MONTHS [employer] Test 16:23:26 [code = FLU VACCINE > 6 of M edicine MONTHS] Future Scheduled 2022-01-16 FALL SCREEN [code = [employer] Test 16:23:26 FALL SCREEN] of Medicine Future Scheduled 2022-01-16 COVID-19 Vaccine (#1) [employer] Test 11:27:18 [code = COVID-19 of Medicine Vaccine (#1)] Future Scheduled 2022-01-16 TETANUS SHOT (ADULT) [employer] Test 11:27:18 [code = TETANUS SHOT of Medi cine (ADULT)] Future Scheduled 2022-01-16 BMI FOLLOW UP PLAN [employer] Test 11:27:18 [code = BMI FOLLOW UP of Med icine PLAN] Future Scheduled 2022-01-16 ZOSTER VACCINE (1 of 2) [employer] Test 11:27:18 [code = ZOSTER VACCINE of Me dicine (1 of 2)] Future Scheduled 2022-01-16 Screening for [facility] [employer] Test 11:27:18 osteoporosis of Medicine (procedure) [code = 546627048] Future Scheduled 2022-01-16 Pneumococcal 65+ (1 - [employer] Test 11:27:18 PCV) [code = of Medicine Pneumococcal 65+ (1 - PCV)] Future Scheduled 2022-01-16 MEDICARE AWV (Initial) [employer] Test 11:27:18 [code = MEDICARE AWV of Medi cine (Initial)] Future Scheduled 2022-01-16 FLU VACCINE > 6 MONTHS [employer] Test 11:27:18 [code = FLU VACCINE > 6 of M edicine MONTHS] Future Scheduled 2022-01-16 FALL SCREEN [code = [employer] Test 11:27:18 FALL SCREEN] of Medicine Future Scheduled 2021-11-29 INFLUENZA [facility]ACCINE (#1[facility]00 [code = INFLUENZA Medical Ce nter VACCINE (#1)] Future Scheduled 2021-11-29 INFLUENZA VACCINE (#1) [facility] 00:00:00 [code = INFLUENZA Medical Ce nter VACCINE (#1)] Future Scheduled 2021-11-29 INFLUENZA VACCINE (#1) [facility] 00:00:00 [code = INFLUENZA Medical Ce nter VACCINE (#1)] Future Scheduled 2021-11-28 BRAIN NATRIURETIC Ordered: [facility] [employer] Test 10:19:36 PEPTIDE [code = 11/28/2021 of Medicine 96177-2] Future Scheduled 2021-11-28 CBC W/O DIFF W PLT Ordered: [facility] [employer] Test 10:19:36 [code = 6690-2] 11/28/2021 of Medicine Future Scheduled 2021-11-28 LIPID PANEL [code = Ordered: [facility] or [facility] Test 10:19:36 77410-1] 11/28/2021 of Medicine Future Scheduled 2021-11-28 COMPREHENSIVE METABOLIC Ordered: [facility] [employer] Test 10:19:36 PANEL [code = 52117-2] 11/28/2021 of Me dicine Future Scheduled 2021-11-28 COVID-19 Vaccine (#1) [employer] Test 09:47:47 [code = COVID-19 of Medicine Vaccine (#1)] Future Scheduled 2021-11-28 TETANUS SHOT (ADULT) [employer] Test 09:47:47 [code = TETANUS SHOT of Medi cine (ADULT)] Future Scheduled 2021-11-28 BMI FOLLOW UP PLAN [employer] Test 09:47:47 [code = BMI FOLLOW UP of Med icine PLAN] Future Scheduled 2021-11-28 ZOSTER VACCINE (1 of 2) [facility] Test 09:47:47 [code = ZOSTER VACCINE of Me dicine (1 of 2)] Future Scheduled 2021-11-28 FALL SCREEN [code = [employer] Test 09:47:47 FALL SCREEN] of Medicine Future Scheduled 2021-11-28 Screening for [facility] Test 09:47:47 osteoporosis of Medicine (procedure) [code = 476399303] Future Scheduled 2021-11-28 Pneumococcal 65+ (1 - [employer] Test 09:47:47 PCV) [code = of Medicine Pneumococcal 65+ (1 - PCV)] Future Scheduled 2021-11-28 MEDICARE AWV (Initial) [facility] Test 09:47:47 [code = MEDICARE AWV of Medi cine (Initial)] Future Scheduled 2021-11-28 FLU VACCINE > 6 MONTHS [facility] Test 09:47:47 [code = FLU VACCINE > 6 of M edicine MONTHS] Future Scheduled 2021-11-27 HEPATITIS B VACCINES (1 [facility] 23:30:16 of 3 - 3-dose series) Hospit al [code = HEPATITIS B VACCINES (1 of 3 - 3-dose series)] Future Scheduled 2021-11-27 COVID-19 VACCINE (#1) [facility] 23:30:16 [code = COVID-19 Hospital VACCINE (#1)] Future Scheduled 2021-11-27 SHINGLES VACCINES (1 [facility] Test 23:30:16 2) [code = SHINGLES Hospital VACCINES (1 of 2)] Future Scheduled 2021-11-27 65+ PNEUMOCOCCAL [facility] Test 23:30:16 VACCINE (1 - PCV) [code Hosp ital = 65+ PNEUMOCOCCAL VACCINE (1 - PCV)] Future Scheduled 2021-11-27 INFLUENZA VACCINE [code [facility] 23:30:16 = INFLUENZA VACCINE] Hospita l Future Scheduled 2021-11-27 HEPATITIS B VACCINES (1 [employer] [facility] 23:30:16 of 3 - 3-dose series) Hospit al [code = HEPATITIS B VACCINES (1 of 3 - 3-dose series)] Future Scheduled 2021-11-27 COVID-19 VACCINE (#1) [facility] 23:30:16 [code = COVID-19 Hospital VACCINE (#1)] Future Scheduled 2021-11-27 SHINGLES VACCINES (1 of [facility] Test 23:30:16 2) [code = SHINGLES Hospital VACCINES (1 of 2)] Future Scheduled 2021-11-27 65+ [facility]UMOCOCCAL [facility] Test 23:30:16 VACCINE (1 - PCV) [code Hosp ital = 65+ PNEUMOCOCCAL VACCINE (1 - PCV)] Future Scheduled 2021-11-27 INFLUENZA VACCINE [code [facility] 23:30:16 = INFLUENZA VACCINE] Hospita l Future Scheduled 2021-11-27 HEPATITIS B VACCINES (1 [employer] Test 23:30:16 of 3 - 3-dose series) Hospit al [code = HEPATITIS B VACCINES (1 of 3 - 3-dose series)] Future Scheduled 2021-11-27 COVID-19 VACCINE (#1) [facility] 23:30:16 [code = COVID-19 Hospital VACCINE (#1)] Future Scheduled 2021-11-27 SHINGLES VACCINES (1 of [facility] Test 23:30:16 2) [code = SHINGLES Hospital VACCINES (1 of 2)] Future Scheduled 2021-11-27 65+ [facility]UMOCOCCAL [facility] Test 23:30:16 VACCINE (1 - PCV) [code Hosp ital = 65+ PNEUMOCOCCAL VACCINE (1 - PCV)] Future Scheduled 2021-11-27 INFLUENZA VACCINE [code [facility] 23:30:16 = INFLUENZA VACCINE] Hospita l Future Scheduled 2021-08-24 US ANKLE / BRACHIAL 1 Occurrences [facility] Test 11:05:00 INDICES EXTREMITY starting of Medicin e COMPLETE [code = 88243] 08/24/2021 until 08/24/2022 Future Scheduled 2021-08-24 ELECTROCARDIOGRAM [facility] Test 09:45:08 COMPLETE [code = 33648] of M edicine Future Scheduled 2021-08-24 COVID-19 Vaccine (#1) [facility] Test 09:44:38 [code = COVID-19 of Medicine Vaccine (#1)] Future Scheduled 2021-08-24 TETANUS SHOT (ADULT) [facility] Test 09:44:38 [code = TETANUS SHOT of Medi cine (ADULT)] Future Scheduled 2021-08-24 BMI FOLLOW UP PLAN [facility] Test 09:44:38 [code = BMI FOLLOW UP of Med icine PLAN] Future Scheduled 2021-08-24 ZOSTER VACCINE (1 of 2) [facility] Test 09:44:38 [code = ZOSTER VACCINE of Me dicine (1 of 2)] Future Scheduled 2021-08-24 FALL SCREEN [code = [employer] Test 09:44:38 FALL SCREEN] of Medicine Future Scheduled 2021-08-24 Screening for [employer] Test 09:44:38 osteoporosis of Medicine (procedure) [code = 251094755] Future Scheduled 2021-08-24 Pneumococcal 65+ (1 - [employer] Test 09:44:38 PCV) [code = of Medicine Pneumococcal 65+ (1 - PCV)] Future Scheduled 2021-08-24 MEDICARE AWV (Initial) [facility] Test 09:44:38 [code = MEDICARE AWV of Medi cine (Initial)] Future Scheduled 2021-08-24 FLU VACCINE > 6 MONTHS [employer] Test 09:44:38 [code = FLU VACCINE > 6 of M edicine MONTHS] Future Scheduled 2021-06-05 BRAIN NATRIURETIC Ordered: [facility] Test 11:04:14 PEPTIDE [code = 06/05/2021 of Medicine 89563-9] Future Scheduled 2021-06-05 COMPREHENSIVE METABOLIC Ordered: [facility] Test 11:04:14 PANEL [code = 67172-7] 06/05/2021 of Me dicine Future Scheduled 2021-06-05 MAGNESIUM [code = Ordered: [facility] Test 11:04:14 83279-0] 06/05/2021 of Medicine Future Scheduled 2021-06-05 LIPID PANEL [code = Ordered: [facility] [place] Test 11:04:14 16523-0] 06/05/2021 of Medicine Future Scheduled 2021-06-05 CBC W/O DIFF W PLT Ordered: [employer] Test 11:04:14 [code = 6690-2] 06/05/2021 of Medicine Future Scheduled 2021-06-05 TSH [code = 10994-3] Ordered: [facility] Test 11:04:14 06/05/2021 of Medicine Future Scheduled 2021-06-05 XR CHEST PA AND LATERAL 1 Occurrences [facility] Test 11:04:14 [code = 05023-3] starting of Medicine 06/05/2021 until 06/05/2022 Future Scheduled 2021-06-05 COVID-19 Vaccine (1) [employer] Test 10:44:29 [code = COVID-19 of Medicine Vaccine (1)] Future Scheduled 2021-06-05 TETANUS SHOT (ADULT) [employer] Test 10:44:29 [code = TETANUS SHOT of Medi cine (ADULT)] Future Scheduled 2021-06-05 BMI FOLLOW UP PLAN [facility] Test 10:44:29 [code = BMI FOLLOW UP of Med icine PLAN] Future Scheduled 2021-06-05 ZOSTER VACCINE (1 of 2) [facility] Test 10:44:29 [code = ZOSTER VACCINE of Me dicine (1 of 2)] Future Scheduled 2021-06-05 FALL SCREEN [code = [facility] [place] Test 10:44:29 FALL SCREEN] of Medicine Future Scheduled 2021-06-05 Screening for [facility] Test 10:44:29 osteoporosis of Medicine (procedure) [code = 837079689] Future Scheduled 2021-06-05 Pneumococcal 65+ (1 of [...] = FALLS RISK Medical C enter SCREENING] Future Scheduled 2021-03-[address] [facility] Test 00:00:00 (12+) [code = Medical Center DEPRESSION SCREENING (12+)] Future Scheduled 2021-03-31 FALLS RISK SCREENING [facility] Test 00:00:00 [code = FALLS RISK Medical C enter SCREENING] Diagnostic Test 2020-07-12 MYOCARD PERFUSION - Expected: [employer] Pending 00:00:00 LEXISCAN [code = 36880] 07/12/2020, of M edicine Expires: 01/11/2022 Diagnostic Test 2020-07-12 ECHO, COMPLETE [code = Expected: [facility] Pending 00:00:00 71211] 07/12/2020, of Medicine Expires: 01/11/2021 Future Scheduled 2009-04-[address] [facility] Test 00:00:[facility] WELLNESS (YEAR 2 or Medical Center FIRST YEAR if no IPPE) [code = MEDICARE ANNUAL WELLNESS (YEAR 2 or FIRST YEAR if no IPPE)] Future Scheduled 2009-04-[address] [facility] Test 00:00:00 WELLNESS (YEAR 2 or Medical Center FIRST YEAR if no IPPE) [code = MEDICARE ANNUAL WELLNESS (YEAR 2 or FIRST YEAR if no IPPE)] Future Scheduled 2009-04-[address] [facility] Test 00:00:00 WELLNESS (YEAR 2 or Medical Center FIRST YEAR if no IPPE) [code = MEDICARE ANNUAL WELLNESS (YEAR 2 or FIRST YEAR if no IPPE)] Future Scheduled 2009-04-[address] [facility] Test 00:00:00 WELLNESS (YEAR 2 or Medical Center FIRST YEAR if no IPPE) [code = MEDICARE ANNUAL WELLNESS (YEAR 2 or FIRST YEAR if no IPPE)] Future Scheduled 2009-04-[address] [facility] Test 00:00:00 WELLNESS (YEAR 2 or Medical Center FIRST YEAR if no IPPE) [code = MEDICARE ANNUAL WELLNESS (YEAR 2 or FIRST YEAR if no IPPE)] Future Scheduled 2004 PNEUMOCOCCAL 65+ YRS ([address] [facility] Test 00:00:00 - PCV) [code = Medical Cente r PNEUMOCOCCAL 65+ YRS (1 - PCV)] Future Scheduled 2004 PNEUMOCOCCAL 65+ YRS ([address] [facility] Test 00:00:00 - PCV) [code = Medical Cente r PNEUMOCOCCAL 65+ YRS (1 - PCV)] Future Scheduled 2004 PNEUMOCOCCAL 65+ YRS ([address] [facility] Test 00:00:00 - PCV) [code = Medical Cente r PNEUMOCOCCAL 65+ YRS (1 - PCV)] Future Scheduled 2004 PNEUMOCOCCAL 65+ YRS ([address] [facility] Test 00:00:00 - PCV) [code = Medical Cente r PNEUMOCOCCAL 65+ YRS (1 - PCV)] Future Scheduled 2004 PNEUMOCOCCAL 65+ YRS ([address] [facility] Test 00:00:00 - PCV) [code = Medical Cente r PNEUMOCOCCAL 65+ YRS (1 - PCV)] Future Scheduled 1989 SHINGLES VACCINES ([address] [facility] Test 00:00:00 2) [code = SHINGLES Medical Center VACCINES (1 of 2)] Future Scheduled 1989 SHINGLES VACCINES ([address] [facility] Test 00:00:00 2) [code = SHINGLES Medical Center VACCINES (1 of 2)] Future Scheduled 1989 SHINGLES VACCINES ([address] [facility] Test 00:00:00 2) [code = SHINGLES Medical Center VACCINES (1 of 2)] Future Scheduled 1989 SHINGLES VACCINES ([address] [facility] Test 00:00:00 2) [code = SHINGLES Medical Center VACCINES (1 of 2)] Future Scheduled 1989 SHINGLES VACCINES ([address] [facility] Test 00:00:00 2) [code = SHINGLES Medical Center VACCINES (1 of 2)] Future Scheduled 1958 DTAP/TDAP/TD [facility]ACCINES [facility] 00:00:00 (1 - Tdap) [code = Medical C enter DTAP/TDAP/TD VACCINES (1 - Tdap)] Future Scheduled 1958 DTAP/TDAP/TD [facility]ACCINES [facility] 00:00:00 (1 - Tdap) [code = Medical C enter DTAP/TDAP/TD VACCINES (1 - Tdap)] Future Scheduled 1958 DTAP/TDAP/TD [facility]ACCINES [facility] 00:00:00 (1 - Tdap) [code = Medical C enter DTAP/TDAP/TD VACCINES (1 - Tdap)] Future Scheduled 1958 DTAP/TDAP/TD [facility]ACCINES [facility] 00:00:00 (1 - Tdap) [code = Medical C enter DTAP/TDAP/TD VACCINES (1 - Tdap)] Future Scheduled 1958 DTAP/TDAP/TD [facility]ACCINES [facility] 00:00:00 (1 - Tdap) [code = Medical C enter DTAP/TDAP/TD VACCINES (1 - Tdap)] Future Scheduled [address] [facility] Test 00:00:00 Counseling and Medical Cente r Screening (12+) [code = Tobacco Cessation Counseling and Screening (12+)] Future Scheduled [address] [facility] Test 00:00:00 Counseling and Medical Cente r Screening (12+) [code = Tobacco Cessation Counseling and Screening (12+)] Future Scheduled [address] [facility] Test 00:00:00 Counseling and Medical Cente r Screening (12+) [code = Tobacco Cessation Counseling and Screening (12+)] Future Scheduled 1939 COVID-19 VACCINE (#1) [facility] 00:00:00 [code = COVID-[address] VACCINE (#1)] Future Scheduled 1939 COVID-19 VACCINE (#1) [facility] 00:00:00 [code = COVID-[address] VACCINE (#1)] Future Scheduled 1939 COVID-19 VACCINE (#1) [facility] 00:00:00 [code = COVID-[address] VACCINE (#1)] Future Scheduled 1939 COVID-19 VACCINE (#1) [facility] 00:00:00 [code = COVID-[address] VACCINE (#1)] Future Scheduled 1939 COVID-19 VACCINE (#1) [facility] 00:00:00 [code = COVID-[address] VACCINE (#1)] Future Scheduled 1939 DXA SCAN [code = DXA [facility] Test 00:00:00 SCAN] Medical Center Future Scheduled 1939 DXA SCAN [code = DXA [facility] Test 00:00:00 SCAN] Medical Center Future Scheduled 1939 DXA SCAN [code = DXA [facility] Test 00:00:00 SCAN] Medical Center Future Scheduled 1939 DXA SCAN [code = DXA [facility] Test 00:00:00 SCAN] Medical Center Future Scheduled 1939 DXA SCAN [code = DXA [facility] Test 00:00:00 SCAN] Medical Center Future Scheduled TETANUS SHOT (ADULT) [facility] Test [code = TETANUS SHOT of Medi cine (ADULT)] Future Scheduled COVID-19 Vaccine (1) [facility] Test [code = COVID-19 of Medicine Vaccine (1)] Future Scheduled ZOSTER VACCINE (1 of 2) [facility] Test [code = ZOSTER VACCINE of Me dicine (1 of 2)] Future Scheduled FALL SCREEN [code = [facility] [place] Test FALL SCREEN] of Medicine Future Scheduled Screening for [facility] Test osteoporosis of Medicine (procedure) [code = 953105694] Future Scheduled PNEUMOVAX >=65 (PPSV23) [facility] Test [code = PNEUMOVAX >=65 of Me [...] Date/Time Type Type Clinicians Facility Department ID 2022-02-27 Outpatient Monk, Na [facility] [id number] 2 Common 11:27:02 [facility] 2022-01-10 Outpatient Hannah W[facility]FE [facility] ANJUM [id number] Univers 17:24:46 BLANCA carey [facility] 2021-12-13 Outpatient Monk, Na [facility] [id number] 2 Common 12:08:01 [facility] 2021-12-12 Outpatient Monk, Na [facility] [id number] 2 Common 09:41:01 [facility] 2021-10-30 Outpatient Monk, Na [facility] [id number] 2 Common 14:30:01 [facility] 2021-04-25 Outpatient Monk, Na [facility] [id number] 2 Common 16:34:00 [facility] 2021-04-25 Outpatient Monk, Na [facility] [id number] 2 Common 14:34:04 [facility] 2021-04-25 Outpatient Monk, Na [facility] ST[facility] [id number] 2 Common 14:28:02 [id number] [facility] 2021-04-25 Outpatient Monk, Na STLMLC STLMLC [id number] 2 Common 14:10:33 [id number] [facility] 2021-04-25 Outpatient Monk, Na STLMLC STLMLC [id number] 2 Common 14:08:10 [id number] [facility] 2021-04-25 Outpatient Monk, Na STLMLC STLMLC [id number] 2 Common 13:52:09 [id number] [facility] 2021-04-25 Outpatient Monk, Na STLMLC STLMLC [id number] 2 Common 12:53:21 [id number] [facility] 2021-04-25 Outpatient Monk, Na STLMLC STLMLC [id number] 2 Common 12:51:50 [id number] [facility] 2021-04-25 Outpatient Kenny, STLMLC STLMLC [id number] Common 12:38:53 Evelyn 57424 [facility] 2021-04-25 Outpatient Kenny, STLMLC STLMLC [id number] Common 12:38:01 Evelyn 61091 [facility] 2021-04-25 Outpatient Kenny, STLMLC STLMLC [id number] Common 12:31:21 Evelyn 85020 [facility] 2021-04-25 Outpatient Kenny, STLMLC STLMLC [id number] Common 12:30:55 Evelyn 77918 [facility] 2021-04-25 Outpatient Kenny, STLMLC STLMLC [id number] Common 12:28:40 Evelyn 81354 [facility] 2021-04-25 Outpatient Kenny, STLMLC STLMLC [id number] Common 12:27:39 Evelyn 43662 [facility] 2021-04-25 Outpatient Kenny, STLMLC STLMLC [id number] Common 12:26:48 Evelyn 51865 [facility] 2021-04-25 Outpatient Kenny STGODWIN STLMLC [id number] Common 12:25:47 Evelyn 23246 [facility] 2021-04-25 Outpatient Kenny STGODWIN STLMLC [id number] Common 12:25:36 Evelyn 12670 [facility] 2021-04-25 Outpatient STGODWIN STLMLC [id number] Common 12:24:11 76564 [facility] 2021-04-25 Outpatient Sidney Guardado [facility] ST[facility] [id number] Common 12:16:20 77418 [facility] 2021-04-25 Outpatient Sidney Guardado [facility] [id number] Common 12:03:40 [id number] [facility] 2021-04-25 Outpatient Sidney Guardado [facility] [id number] Common 11:46:48 Taylor 94719 [facility] 2022-10-04 2022-10-04 Outpatient Hannah FERNANDEZ [facility] [id number] Univers 11:00:00 11:00:00 COTY carey [facility] 2022-09-11 2022-09-11 Outpatient CARLY MORALES [facility] [id number] [facility] 00:00:00 00:00:00 [facility] 2022-09-11 2022-09-11 Outpatient ALEXA TAYLOR [facility] [id number] [facility] 00:00:00 00:00:00 [facility] 2022-08-21 2022-08-21 Outpatient R RAMBO [facility] [id number] Univers 13:00:00 13:00:00 RYLAN tatyana [facility] 2022-08-09 2022-08-09 Outpatient R RAMBO [facility] [id number] Univers 14:20:00 14:20:00 RYLAN tatyana [facility] 2022-08-09 2022-08-09 [id number] Univers 14:20:00 14:20:00 RYLAN ittatyana [facility] 2022-08-07 2022-08-07 Telephone [facility] [id number] Univers 00:00:00 00:00:00 Rylan HAWLEY [id number] i ty of [facility] [id number] [id number] [address] 2022-08-07 2022-08-07 Telephone [facility] [id number] Univers 00:00:00 00:00:00 Rylan HAWLEY [id number] i ty [id number] [id number] [address] 2022-07-22 2022-07-22 Refill [facility] [id number] Univers 00:00:00 00:00:00 [facility] [id number] it y [facility] [id number] [place] as ARDEN?BLEA [id number] [address] OFFICE [facility] 2022-07-16 2022-07-16 [facility] [id number] Univers 13:04:00 17:52:00 Grant HAWLEY 350.1.13.10 i ty of [facility] [id number] [id number] [facility] [address] 2022-07-16 2022-07-16 Outpatient Hannah GRIER [facility] ERT [id number] Univers 12:45:00 14:29:50 SUE carey [facility] 2022-07-16 2022-07-16 Nurse Nurse, [facility] 1.2.840.114 [id number] Univers 12:45:00 13:05:00 Visit Unknown, Attending HEALTH 350.1.13.10 ity [facility] 4.2.7.2.686 Franki as ARDEN?BLEA [phone] [facility] 370 [facility] 2022-07-16 2022-07-16 Outpatient R SONJA [facility] [id number] Univers 12:45:00 12:45:00 SUE tatyana [facility] 2022-07-16 2022-07-16 Outpatient R ENZO, [facility] [id number] Univers 12:00:00 12:00:00 ATTENDING [facility] 2022-07-07 2022-07-07 Outpatient GC_TNC_Cher PRIV PRIV [id number] [facility] 00:00:00 00:00:00 ches_I [id number] Medica l 2022-07-05 2022-07-05 Outpatient R FERNANDEZ [facility] [id number] Univers 11:00:00 11:56:18 COTY tatyana [facility] 2022-07-05 2022-07-05 [facility] 1.2.840.114 [id number] Univers 11:00:00 11:56:18 Visit [facility] 350.1.13.10 it y of [place] 4.2.7.2.686 Franki as ARDEN?BLEA [phone] Ak di JOEY 092 [facility] 2022-06-17 2022-06-17 Telephone [facility] 1.2.186.753 [id number] Univers 00:00:00 00:00:00 Coty HAWLEY 350.1.13.10 i ty of [facility] 4.2.7.2.[place] [phone] Ak dical NAL 044 [facility] 2022-06-14 2022-06-14 Patient Rambo [facility] 1.2.840.114 [id number] Univers 00:00:00 00:00:00 Secure Msg Rylan MALDONADOPEC 350.1.13.10 it[place] [phone] Majo Francis [facility] 2022-06-13 2022-06-13 Office [facility] 1.2.840.114 [id number] Univers 10:00:00 11:08:01 Visit Coty HAWLEY 350.1.13.10 i ty of [place] [phone] Ak dicne NAL [address] [place] [address] 2022-06-13 2022-06-13 Outpatient R ALLISON [facility] [id number] Univers 10:00:00 11:08:01 COTY carey [facility] 2022-06-13 2022-06-13 Patient Mercer, [facility] 1.2.840.114 [id number] Univers 00:00:00 00:00:00 Outreach Maru Jimenez [facility] 350.1.13.10 ity of [facility] 4.2.7.2.686 Franki as ARDEN?BLEA [phone] [address] 2022-06-11 2022-06-11 Telephone [facility] 1.2.529.712 [id number] Univers 00:00:00 00:00:00 Coty HAWLEY 350.1.13.10 i ty of [facility] 4.2.7.2.[place] [id number] [address] 2022-06-10 2022-06-10 Patient [facility] 1.2.840.114 [id number] Univers 00:00:00 00:00:00 Secure Msg Rylan MARLEEN 350.1.13.10 ity of [facility] 4.2.7.2.[place] [phone] [address] 2022-06-04 2022-06-04 Outpatient R REBECCA [facility] [id number] Univers 11:00:00 11:43:43 COTY [facility] 2022-06-04 2022-06-04 Office [facility] 1.2.840.114 [id number] Univers 11:00:00 11:43:43 Visit [facility] 350.1.13.10 it y of [facility] 4.2.7.2.686 Franki as ARDEN?BLEA [id number] Ak ranne BELKIS 092 [facility] 2022-05-29 2022-05-29 Telemedici [facility] 1.2.840.114 [id number] Univers 15:00:00 15:40:00 ne Visit Rylan HAWLEY 350.1.13.10 ity of [place].2.[place] [phone] Ak dical NAL [address] [place] [address] 2022-05-29 2022-05-29 [facility] [id number] Univers 15:00:00 15:00:00 RYLAN cherry [facility] 2022-05-29 2022-05-29 Telephone [facility] 1.2.840.114 [id number] Univers 00:00:00 00:00:00 Rylan HAWLEY 350.1.13.10 i ty of [place] [phone] Ak di [address] 2022-05-27 2022-05-27 Telephone [facility] 1.2.840.114 1 [id number] Univers 00:00:00 00:00:00 Rylan HAWLEY 350.1.13.10 i ty of [place].2.[place] [phone] Ak dical CICI [address] [place] [address] 2022-05-22 2022-05-22 Manufacturing 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 Leader 2, Adc Lab [facility] 1.2.840.114 [id number] [facility] 08:15:00 08:21:27 Visit Demetriusxiomy Rylan HAWLEY 350.1.13.10 ity of [place] 4.2.7.2.[place] [phone] [facility] 353 [facility] 2022-05-22 2022-05-22 [facility] [id number] Univers 08:15:00 08:15:00 RYLNA faytatyana [facility] 2022-05-21 2022-05-21 Outpatient R RAMBO [facility] [id number] [facility] 14:00:00 15:48:28 RYLAN carey [facility] 2022-05-21 2022-05-21 Office [facility] 1..840.114 [id number] [facility] 14:00:00 15:48:28 Visit Rylan HAWLEY 350.1.13.10 i ty of [place] 4.2.7.2.[place] [phone] Ak dicdenise [facility] 044 [facility] 2022-05-02 2022-05-02 Telephone [facility] 1.2.840.114 [id number] Univers 00:00:00 00:00:00 Rylan DAMONNASRA 350.1.13.10 i ty of [place] 4.2.7.2.[place] [phone] Ak di [address] 2022-04-20 2022-04-20 Emergency X REILLY [facility] ERT [id number] Univers 05:23:00 08:25:00 [place] itUT [facility] 2022-04-20 2022-04-20 Emergency KrausLeeroy [facility] 1.2.840. 114 [id number] Univers 05:23:00 08:25:00 Marietta Grover 350.1.13.10 ity [facility] 4.2.7.2.686 [facility] [phone] [address] 2022-04-09 2022-04-09 Outpatient R SONJA [facility] [id number] Univers 11:20:00 12:16:00 SUE [facility] 2022-04-09 2022-04-09 Urgent Sue Grier [facility] 1.2.840.114 [id number] Univers 11:20:00 12:16:00 Care Unknown, Attending HEALTH 350.1.13.10 ity [facility] 4.2.7.2.686 Franki as ARDEN?BLEA [phone] [address] MEDICAL OFFICE BUILDING 2022-03-11 2022-03-11 (TEL) [facility] [id number] Co mmon 00:00:00 00:00:00 Spirit - CHI [facility] 2022-02-28 2022-02-28 SUB ANNUAL [facility] [id number] Common 00:00:00 00:00:00 MCR Spirit WELLNESS - CHI VISIT [facility] 2022-02-28 2022-02-28 OFFICE [facility] [id number] Co mmon 00:00:00 00:00:00 VISIT EST Spir it PT LEVEL 3 - CHI [facility] 2022-01-22 2022-01-22 Orders Doctor CHAIM 1.2.840.114 [id number] Univers 00:00:00 00:00:00 Only Unassigned, HOLLEY 350.1.13.10 ity of [facility] 4.2.7.2.686 Franki as [phone] [place] [address] [address] 2022-01-16 2022-01-16 Office Lnany Johnston BC 1.2.840.114 [id number] [facility] 08:30:00 10:39:27 Visit AMBULATOR 350.1.13.21 College Y 0.2.7.2.686 of [id number] [facility] jose carlos 395 e 2022-01-16 2022-01-16 Office RICHIE SaucedaM 1.2.840.[id number] [place] [address] 09:30:00 10:00:00 Visit Tziona AMBULATOR 350.1.13.21 College Y 0.2.7.2.686 of [id number] [facility] jose carlos 395 e 2022-01-08 2022-01-08 Orders Doctor CHAIM 1.2.840.114 [id number] [facility] 00:00:00 00:00:00 Only Unassigned, HOLLEY 350.1.13.10 ity of [facility] 4.2.7.2.686 Franki as [phone] [address] 2022-01-07 2022-01-07 Prep For Aiden [facility] 1.2.840.114 [id number] [facility] 00:00:00 00:00:00 Surgery Blanca HAWLEY 350.1.13.10 i ty of [place] [id number] Ak dic[address] 2022-01-03 2022-01-03 Outpatient R AIDEN [facility] [id number] Univers 09:30:00 10:33:48 BLANCA carey of [facility] 2022-01-03 2022-01-03 Office Aiden [facility] 1.2.624.231 [id number] Univers 09:30:00 10:33:48 Visit Blanca HAWLEY 350.1.13.10 i ty of [place] 4.2.7.2.686 [place] [facility] [phone] [facility] 188 [facility] 2022-01-03 2022-01-03 Orders Doctor CHAIM 1.2.840.114 [id number] Univers 00:00:00 00:00:00 Only Unassigned, HOLLEY 350.1.13.10 ity of [facility] 4.2.7.2.686 Franki as [id number] [address] 2022-01-02 2022-01-02 [facility] [id number] Univers 08:56:15 23:59:00 BLANCA carey [facility] 2022-01-02 2022-01-02 [facility] 1.2.840.114 [id number] Univers 08:56:15 23:59:00 Encounter Blanca DAMONNASRA 350.1.13.10 ity of [place] 4.2.7.2.686 [place] [phone] [facility] [address] 2022-01-02 2022-01-02 Orders Doctor CHAIM 1.2.840.114 [id number] Univers 00:00:00 00:00:00 Only Unassigned, HOLLEY 350.1.13.10 ity of [place] [facility] 4.2.7.2.686 Franki as [phone] [address] 2021-12-27 2021-12-27 [facility] [id number] Univers 12:00:00 12:00:00 BLANCA carey [facility] 2021-12-20 2021-12-20 [facility] [id number] Univers 14:00:00 14:35:05 BLANCA carey [facility] 2021-12-20 2021-12-20 Office [facility] 1.2.840.572 [id number] Univers 14:00:00 14:35:05 Visit Blanca HAWLEY 350.1.13.10 i ty of [place].2.[place] [phone] Ak dical NAL [address] BUILDING 2021-12-18 2021-12-18 Transition MICHEL Joseph 1.2.840.114 [id number] Univers 00:00:00 00:00:00 of Yayo ROY 350.1.13.10 it y of [place] 4.2.7.2.686 [place] [phone] [facility] [address] 2021-12-17 2021-12-17 Telephone Aiden [facility] 1.2.840.114 [id number] Univers 00:00:00 00:00:00 Blanca HAWLEY 350.1.13.10 i ty of [place].2.[place] [phone] Ak dical NAL 188 [facility] 2021-12-13 2021-12-16 Outpatient X VLADIMIR [facility] [id number] Univers 14:31:00 15:35:00 NELLA carey [facility] 2021-12-13 2021-12-16 [facility] Halina Kurtz [facility] 1.2.84 0.114 [id number] Univers 14:31:00 15:35:00 Encounter Jeevan Roman 350.1.13.10 ity of [place] 4.2.7.2.686 [facility] [phone] [facility] [address] 2021-12-13 2021-12-13 (TEL) STLC STLC [id number] Co mmon 00:00:00 00:00:00 [facility] 2021-12-05 2021-12-05 (TEL) STLMLC STLMLC [id number] Co mmon 00:00:00 00:00:00 [facility] 2021-11-28 2021-11-28 Office FERNY GANN 1.2.645.212 [id number] [facility] 09:41:00 10:59:24 Visit YOCHAI AMBULATOR 350.1.13.21 College Y 0.2.7.2.686 of [id number] Medi jose carlos 375 e 2021-11-20 2021-11-20 (TEL) STLMLC STLMLC [id number] Co mmon 00:00:00 00:00:00 [facility] 2021-11-19 2021-11-19 (TEL) STLMLC STLMLC [id number] Co mmon 00:00:00 00:00:00 [facility] 2021-11-13 2021-11-13 OFFICE STLMLC STLMLC [id number] Co mmon 00:00:00 00:00:00 VISIT Spirit ESTAB PT - CHI LEVEL 4 [facility] 2021-11-13 2021-11-13 (TEL) STLMLC STLMLC [id number] Co mmon 00:00:00 00:00:00 [facility] 2021-11-09 2021-11-09 (TEL) STLMLC STLMLC [id number] Co mmon 00:00:00 00:00:00 [facility] 2021-11-09 2021-11-09 Orders Doctor CHAIM 1.2.840.114 [id number] Univers 00:00:00 00:00:00 Only Unassigned, HOLLEY 350.1.13.10 ity of [place] [facility] 4.2.7.2.686 Franki as [id number] [facility] manny [address] 2021-11-07 2021-11-07 (TEL) STLMLC STLMLC [id number] Co mmon 00:00:00 00:00:00 [facility] 2021-11-01 2021-11-01 OFFICE STLMLC STLMLC [id number] Co mmon 00:00:00 00:00:00 VISIT Spirit ESTAB PT - CHI LEVEL 4 [facility] 2021-10-29 2021-10-29 (TEL) STLMLC STLMLC [id number] Co mmon 00:00:00 00:00:00 [facility] 2021-10-25 2021-10-25 OFFICE STLMLC STLMLC [id number] Co mmon 00:00:00 00:00:00 VISIT Spirit ESTAB PT - CHI LEVEL 1 [facility] 2021-09-19 2021-09-19 OFFICE STLMLC STLMLC [id number] Co mmon 00:00:00 00:00:00 VISIT [facility] LEVEL 2 [facility] 2021-09-18 2021-09-18 (TEL) STLMLC STLMLC [id number] Co mmon 00:00:00 00:00:00 [facility] 2021-08-31 2021-08-31 Outpatient [facility] [id number] [facility] 09:02:54 10:42:34 Yousuf e of Medicin e 2021-08-26 2021-08-26 Emergency [facility] [id number] Univers 10:53:00 13:52:00 HALINA ity of [facility] 2021-08-26 2021-08-26 Emergency [facility] 1.2.840.114 [id number] Univers 10:53:00 13:52:00 Halina HAWLEY 350.1.13.10 ity of [place] 4.2.7.2.686 [facility] [phone] [facility] [address] 2021-08-26 2021-08-26 Orders Doctor CHAIM 1.2.840.114 [id number] [facility] 00:00:00 00:00:00 Only Unassigned, HOLLEY 350.1.13.10 ity of [facility] 4.2.7.2.686 [facility] [phone] [facility] [address] 2021-08-24 2021-08-24 Office FERNY GANN 1.2.999.688 [id number] [facility] 09:35:23 11:37:52 Visit YOCHAI AMBULATOR 350.1.13.21 College Y 0.2.7.2.686 [id number] [facility] jose carlos 375 e 2021-08-15 2021-08-15 (TEL) STLMLC STLMLC [id number] Co mmon 00:00:00 00:00:00 Spirit [facility] 2021-08-13 2021-08-13 (TEL) STLMLC STLMLC [id number] Co mmon 00:00:00 00:00:00 [facility] 2021-07-31 2021-07-31 (TEL) STLMLC STLMLC [id number] Co mmon 00:00:00 00:00:00 [facility] 2021-07-31 2021-07-31 OFFICE STLMLC STLMLC [id number] Co mmon 00:00:00 00:00:00 VISIT Spirit ESTAB PT - CHI LEVEL 4 [facility] 2021-06-27 2021-06-27 OFFICE STLC STLC [id number] Co mmon 00:00:00 00:00:00 VISIT EST Spir it PT LEVEL 3 - CHI [facility] 2021-06-05 2021-06-05 Outpatient [facility] [id number] [facility] 12:01:16 23:59:00 [facility] 2021-06-05 2021-06-05 [facility], [facility] [id number] 12:01:16 23:59:00 Encounter [facility] 2021-06-05 2021-06-05 Office [place] 1.2.942.526 [id number] [facility] 10:31:09 13:24:42 Visit [facility] AMBULATOR 350.1.13.21 College Y 0.2.7.2.686 of [id number] [facility] 375 e 2021-06-05 2021-06-05 Outside [facility], [facility] [id number] 00:00:00 00:00:00 Orders [facility] 2021-06-01 2021-06-01 (TEL) STLMLC STLC [id number] Co mmon 00:00:00 00:00:00 [facility] 2021-05-29 2021-05-29 (TEL) STLMLC STLMLC [id number] Co mmon 00:00:00 00:00:00 [facility] 2021-05-28 2021-05-28 (TEL) STLMLC STLMLC [id number] Co mmon 00:00:00 00:00:00 [facility] 2021-05-28 2021-05-28 OFFICE STLMLC STLMLC [id number] Co mmon 00:00:00 00:00:00 VISIT EST Spir it PT LEVEL 3 [facility] 2021-04-12 2021-04-12 (TEL) STLMLC STLMLC [id number] Co mmon 00:00:00 00:00:00 [facility] 2021-04-12 2021-04-12 (TEL) STLMLC STLMLC [id number] Co mmon 00:00:00 00:00:00 [facility] 2021-03-16 2021-03-16 (TEL) STLMLC STLMLC [id number] Co mmon 00:00:00 00:00:00 [facility] 2021-03-01 2021-03-01 OFFICE STLMLC STLMLC [id number] Co mmon 00:00:00 00:00:00 VISIT [facility] PT - CHI LEVEL 2 [facility] 2021-02-28 2021-02-28 (TEL) STLMLC STLMLC [id number] Co mmon 00:00:00 00:00:00 [facility] 2021-01-31 2021-01-31 OFFICE STLMLC STLMLC [id number] Co mmon 00:00:00 00:00:00 VISIT EST Spir it PT LEVEL 3 - [facility] 2021-01-30 2021-01-30 (TEL) STLMLC STLMLC [id number] Co mmon 00:00:00 00:00:00 [facility] 2021-01-29 2021-01-29 (TEL) STLMLC STLMLC [id number] Co mmon 00:00:00 00:00:00 [facility] 2021-01-11 2021-01-11 (TEL) STLMLC STLMLC [id number] Co mmon 00:00:00 00:00:00 [facility] 2021-01-10 2021-01-10 OFFICE STLMLC STLMLC [id number] Co mmon 00:00:00 00:00:00 VISIT [facility] PT - CHI LEVEL 1 [facility] 2021-01-02 2021-01-02 (TEL) STLMLC STLMLC [id number] Co mmon 00:00:00 00:00:00 [facility] 2020-12-21 2020-12-21 OFFICE STLMLC STLMLC [id number] Co mmon 00:00:00 00:00:00 VISIT EST Spir it PT LEVEL 3 [facility] 2020-12-08 2020-12-08 Outpatient GC_TNC_Cher PRIV PRIV [id number] [facility] 00:00:00 00:00:00 ches_I [id number] Medica l 2020-11-06 2020-11-06 Outpatient STLMLC STLMLC [id number] Common 00:00:00 00:00:00 [facility] 2020-11-06 2020-11-06 Outpatient STLMLC STLMLC [id number] Common 00:00:00 00:00:00 [facility] 2020-10-30 2020-10-30 Outpatient STLMLC STLMLC [id number] Common 00:00:00 00:00:00 [facility] 2020-09-19 2020-09-19 Outpatient STLMLC STLMLC [id number] Common 00:00:00 00:00:00 [facility] 2020-08-16 2020-08-16 Outpatient STLMLC STLMLC [id number] Common 00:00:00 00:00:00 [facility] 2020-08-10 2020-08-10 Outpatient STLMLC STLMLC [id number] Common 00:00:00 00:00:00 [facility] 2020-08-04 2020-08-04 Outpatient STLMLC STLMLC [id number] Common 00:00:00 00:00:00 [facility] 2020-08-03 2020-08-03 Outpatient STLMLC STLMLC [id number] Common 00:00:00 00:00:00 [facility] 2020-08-02 2020-08-02 Outpatient STLMLC STLMLC [id number] Common 00:00:00 00:00:00 [facility] 2020-07-20 2020-07-20 Outpatient STLMLC STLMLC [id number] Common 00:00:00 00:00:00 [facility] 2020-07-17 2020-07-17 Outpatient STLMLC STLMLC [id number] Common 00:00:00 00:00:00 [facility] 2020-07-13 2020-07-13 Outpatient STLMLC STLMLC [id number] Common 00:00:00 00:00:00 [facility] 2020-07-12 2020-07-12 Office FERNY GANN 1.2.888.096 [id number] [facility] 11:29:14 12:34:28 Visit YOCHAI AMBULATOR 350.1.13.21 College Y 0.2.7.2.686 of [id number] Medi jose carlos 375 e 2020-06-30 2020-06-30 Outpatient STLMLC STLMLC [id number] Common 00:00:00 00:00:00 [facility] 2020-06-28 2020-06-28 Outpatient STLMLC STLMLC [id number] Common 00:00:00 00:00:00 [facility] 2020-06-18 2020-06-18 Outpatient STLMLC STLMLC [id number] Common 00:00:00 00:00:00 [facility] 2020-06-09 2020-06-09 Outpatient STLMLC STLMLC [id number] Common 00:00:00 00:00:00 [facility] 2020-06-09 2020-06-09 Outpatient STLMLC STLMLC [id number] Common 00:00:00 00:00:00 [facility] 2020-05-19 2020-05-19 Outpatient STLMLC STLMLC [id number] Common 00:00:00 00:00:00 [facility] 2020-05-04 2020-05-04 Outpatient STLMLC STLMLC [id number] Common 00:00:00 00:00:00 [facility] 2020-04-28 2020-04-28 Outpatient STLMLC STLMLC [id number] Common 00:00:00 00:00:00 [facility] 2020-04-28 2020-04-28 Outpatient STLMLC STLMLC [id number] Common 00:00:00 00:00:00 [facility] 2020-04-26 2020-04-26 Outpatient STLMLC STLMLC [id number] Common 00:00:00 00:00:00 [facility] 2020-04-25 2020-04-25 Outpatient STLMLC STLMLC [id number] Common 00:00:00 00:00:00 [facility] 2020-04-18 2020-04-18 Outpatient STLMLC STLMLC [id number] Common 00:00:00 00:00:00 [facility] 2020-04-10 2020-04-10 Outpatient STLMLC STLMLC [id number] Common 00:00:00 00:00:00 [facility] 2020-04-06 2020-04-06 Outpatient STLMLC STLMLC [id number] Common 00:00:00 00:00:00 [facility] 2020-02-11 2020-02-11 Outpatient STLMLC STLMLC [id number] Common 00:00:00 00:00:00 [facility] 2020-02-10 2020-02-10 Outpatient STLMLC STLMLC [id number] Common 00:00:00 00:00:00 [facility] 2020-02-04 2020-02-04 Outpatient STLMLC STLMLC [id number] Common 00:00:00 00:00:00 [facility] 2020-01-31 2020-01-31 Outpatient STLMLC STLMLC [id number] Common 00:00:00 00:00:00 [facility] 2020-01-27 2020-01-27 Outpatient STLMLC STLMLC [id number] Common 00:00:00 00:00:00 [facility] 2020-01-20 2020-01-20 Outpatient STLMLC STLMLC [id number] Common 00:00:00 00:00:00 [facility] 2020-01-17 2020-01-17 Outpatient STLMLC STLMLC [id number] Common 00:00:00 00:00:00 [facility] 2020-01-13 2020-01-13 Outpatient STLMLC STLMLC [id number] Common 00:00:00 00:00:00 [facility] 2020-01-10 2020-01-10 Outpatient STLMLC STLMLC [id number] Common 00:00:00 00:00:00 [facility] 2020-01-10 2020-01-10 Outpatient STLMLC STLMLC [id number] Common 00:00:00 00:00:00 [facility] 2020-01-06 2020-01-06 Outpatient STLMLC STLMLC [id number] Common 00:00:00 00:00:00 [facility] 2020-01-04 2020-01-04 Outpatient STLMLC STLMLC [id number] Common 00:00:00 00:00:00 [facility] 2019-12-31 2019-12-31 Outpatient STLMLC STLMLC [id number] Common 00:00:00 00:00:00 [facility] 2019-12-27 2019-12-27 Outpatient STLMLC STLMLC [id number] Common 00:00:00 00:00:00 [facility] 2019-12-27 2019-12-27 Outpatient STLMLC STLMLC [id number] Common 00:00:00 00:00:00 [facility] 2019-12-22 2019-12-22 Outpatient STLMLC STLMLC [id number] Common 00:00:00 00:00:00 [facility] 2019-12-22 2019-12-22 Outpatient STLMLC STLMLC [id number] Common 00:00:00 00:00:00 [facility] 2019-12-22 2019-12-22 Outpatient STLMLC STLMLC [id number] Common 00:00:00 00:00:00 [facility] 2019-12-16 2019-12-16 [facility] [id number] Common 09:00:00 09:00:00 t [facility] 2019-05-18 2019-05-18 Orders Doctor CHAIM [id number] 00:00:00 00:00:00 Only Unassigned, [place] [id number] [facility] [id number] [id number] 2019-05-18 2019-05-18 Orders Doctor CHAIM [id number] [facility] 00:00:00 00:00:00 Only Unassigned, [place] [id number] [facility] [place] [facility] 4.2.7.2.686 Franki as [phone] [address] 2019-05-16 2019-05-16 [facility] [id number] 00:00:00 00:00:00 Kaleb Hawley [id number] [place] 4.2.7.2.686 Professio [id number] [address] 2019-05-16 2019-05-16 [facility] [id number] [facility] 00:00:00 00:00:00 Kaleb Hawley [id number] [place]y [place]2.[place] [phone] [place] [address] 2019-04-04 2019-04-04 [facility] [id number] [facility] 15:59:44 18:51:00 LUKAS carey [facility] 2014-10-04 2014-10-04 Outpatient FERNY CABRERA [facility] [id number] [facility] 13:17:59 15:14:08 [facility] 2014-10-04 2014-10-04 Outpatient FERNY CHRISTIANSON [facility] [id number] [facility] 08:11:06 13:52:44 SMILEY [facility] Results Test Description Test Time Test Comments Results Result Comments Source COMP. METABOLIC PANEL (47998) 2022-07-16 19:20:21 Test Item Value Reference Range Interpretation Comme nts NA (test code = 0240587293) 139 mmol/L 135-145 K (test code = 0295097579) 4.2 mmol/L 3.5-5.0 CL (test code = 2714762975) 94 mmol/L 98-108 L CO2 TOTAL (test code = 0868164435) 30 mmol/L 23-31 AGAP (test code = 6976521275) 15 2-16 BUN (test code = 8735515353) 43 mg/dL 7-23 H GLUCOSE (test code = 9623014794) 111 mg/dL 70-110 H CREATININE (test code = 1.29 mg/dL 0.50-1.04 H 8328104473) TOTAL BILI (test code = 0.9 mg/dL 0.1-1.3 2906708718) CALCIUM (test code = 1411914083) 9.9 mg/dL 8.6-10.6 T PROTEIN (test code = 2793744931) 8.1 g/dL 6.3-8.2 ALBUMIN (test code = 6020978184) 4.6 g/dL 3.5-5.0 ALK PHOS (test code = 5830392317) 81 U/L 34-122 ALTv (test code = 1742-6) 16 U/L 5-35 AST(SGOT) (test code = 6681486248) 36 U/L 13-40 eGFR (test code = 4673719057) 39.5 mL/min/1.73m2 FABRICE (test code = FABRICE) Association of Glomerular Filtration Rate (GFR) and Staging of Kidney Disease* + +-------- + ------+| GFR (mL/min/1.73 m2) ?| With Kidney Damage ?| ?Without Kidney Damage+ +-- + +| ?>90 ?| ?Stage one ?| ? Normal ?+ +------- + -------+| ?60-89 ?| ?Stage two ?| ? Decreased GFR ? + +-------- + ------+| ?30-59 ?| ?Stage three ?| ? Stage three ? + +-------- + ------+| ?15-29 ?| ?Stage four ? | ? Stage four ?+ +------- + -------+| ?<15 (or dialysis) ? ?| ?Stage five ? | ? Stage five ?+ +------- + -------+ *Each stage assumes the associated GFR [...] or abnormalities in imaging tests). Lab Interpretation (test code = Abnormal 93886-8) [facility]21 Test Item Value Reference Range Interpretation Comments LIPASE (test code = 9322307081) 178 U/L 0-220 Lab Interpretation (test code = Normal 73422-6) [facility] WITH [id number] 19:04:39 Test Item Value Reference Range Interpretation Comments WBC (test code = 10.55 See_Comment [Automated 7653-2) message] The sy stem which generated this result transmitted reference range : 4.30 - 11.10 10*3/?L. The reference range was not used to interpret this result as normal/abnormal . RBC (test code = 4.31 See_Comment [Automated 002-8) message] The sy stem which generated this result transmitted reference range : 3.93 - 5.25 10*6/?L. The reference range was not used to interpret this result as normal/abnormal . HGB (test code = 14.1 g/dL 11.6-15.0 718-7) HCT (test code = 41.3 % 35.7-45.2 4544-3) MCV (test code = 95.8 fL 80.6-95.5 H 787-2) MCH (test code = 32.7 pg 25.9-32.8 785-6) MCHC (test code = 34.1 g/dL 31.6-35.1 786-4) RDW-SD (test code = 41.9 fL 39.0-49.9 23030-9) RDW-CV (test code = 12.0 % 12.0-15.5 788-0) PLT (test code = 183 See_Comment [Automated 777-3) message] The sy stem which generated this result transmitted reference range : 166 - 358 10*3/ ?L. The reference r mary was not used to interpret this result as normal/abnormal . MPV (test code = 10.1 fL 9.5-12.9 70152-0) NRBC/100 WBC (test 0.0 See_Comment [Automat ed code = 4549417707) message] The system which generated this result transmitted reference range : 0.0 - 10.0 /100 WBCs. The refer ence range was not u sed to interpret th is result as normal/abnormal . NRBC x10^3 (test code See_Comment [Auto mated = [id number]) message] The s ystem which generated this result transmitted reference range : 10*3/?L. The reference range was not used to interpret this result as normal/abnormal . GRAN MAT (NEUT) % 80.6 % (test code = 770-8) IMM GRAN % (test code 0.50 % = [id number]) LYMPH % (test code = 11.1 % 736-9) MONO % (test code = 5.7 % 5905-5) EOS % (test code = 1.6 % 713-8) BASO % (test code = 0.5 % 706-2) GRAN MAT x10^3(ANC) 8.51 10*3/uL 1.88-7.09 H (test code = 1064066174) IMM GRAN x10^3 (test 0.05 10*3/uL 0.00-0.06 code = 3460008121) LYMPH x10^3 (test code 1.17 10*3/uL 1.32-3.29 L = 731-0) MONO x10^3 (test code 0.60 10*3/uL 0.33-0.92 = 742-7) EOS x10^3 (test code = 0.17 10*3/uL 0.03-0.39 711-2) BASO x10^3 (test code 0.05 10*3/uL 0.01-0.07 = 704-7) Lab Interpretation Abnormal (test code = 44734-7) [facility]woodLa[facility] Whole [id number] 19:00:58 Test Item Value Reference Range Interpretation Comments LACTIC ACID (test code = 2.92 mmol/L 0.50-2.20 H [id number]) Lab Interpretation (test code = Abnormal 99360-4) [facility] URINALYSIS W SPECIFIC [id number] 16:14:00 Test Item Value Reference Range Interpretation Comments POCT U SP GRAV (test code = 1.010 mg/dl 1.005-1.025 3255) POCT PH U (test code = 3254) 5 mg/dl 5-8 POCT U LEUK EST (test code = Trace Negative - Negative 3263) POCT U NIT (test code = 3262) Negative Negative - Negative POCT U PROT (test code = Negative Negative - Negative 3259) POCT U GLU (test code = 3256) Negative Negative - Negative POCT U KETONE (test code = Negative Negative - Negative 3258) POCT U UROBILI (test code = 0.2 mg/dl 0.2-1 3260) POCT U BILI (test code = Negatiave Negative - Negative 3261) POCT U BLD (test code = 3257) Negative Negative - Negative POCT U COLOR (test code = Yellow 3266) POCT U APPEAR (test code = Clear 3267) Lab Interpretation (test code Abnormal = 60720-3) [facility] URINALYSIS W SPECIFIC [id number] 16:14:00 Test Item Value Reference Range Interpretation Comments POCT U SP GRAV (test code = 1.010 mg/dl 1.005-1.025 3255) POCT PH U (test code = 3254) 5 mg/dl 5-8 POCT U LEUK EST (test code = Trace Negative - Negative 3263) POCT U NIT (test code = 3262) Negative Negative - Negative POCT U PROT (test code = Negative Negative - Negative 3259) POCT U GLU (test code = 3256) Negative Negative - Negative POCT U KETONE (test code = Negative Negative - Negative 3258) POCT U UROBILI (test code = 0.2 mg/dl 0.2-1 3260) POCT U BILI (test code = Negatiave Negative - Negative 3261) POCT U BLD (test code = 3257) Negative Negative - Negative POCT U COLOR (test code = Yellow 3266) POCT U APPEAR (test code = Clear 3267) Lab Interpretation (test code Abnormal = 65137-3) [facility]woodPO[facility] URINAL[facility] W SPECIFIC [id number] 16:14:00 Test Item Value Reference Range Interpretation Comments POCT U SP GRAV (test code = 1.010 mg/dl 1.005-1.025 3255) POCT PH U (test code = 3254) 5 mg/dl 5-8 POCT U LEUK EST (test code = Trace Negative - Negative 3263) POCT U NIT (test code = 3262) Negative Negative - Negative POCT U PROT (test code = Negative Negative - Negative 3259) POCT U GLU (test code = 3256) Negative Negative - Negative POCT U KETONE (test code = Negative Negative - Negative 3258) POCT U UROBILI (test code = 0.2 mg/dl 0.2-1 3260) POCT U BILI (test code = Negatiave Negative - Negative 3261) POCT U BLD (test code = 3257) Negative Negative - Negative POCT U COLOR (test code = Yellow 3266) POCT U APPEAR (test code = Clear 3267) Lab Interpretation (test code Abnormal = 69565-5) [facility]woodTroponin I - Code [id number] 11:56:25 Test Item Value Reference Interpretation Comments Range TROPONIN I (test 0.005 ng/mL See_Comment [Automated code = 1110989841) message] The system which generated this result transmitted reference range : <=0.034. The reference range was not used to interpret this result as normal/abnormal . FABRICE (test code = Reference (Normal) FABRICE) Range (defined by the 99th percentile reference [...] biotin. Lab Interpretation Normal (test code = 54385-5) [facility]woodaPTT - Code [id number] 11:55:08 Test Item Value Reference Range Interpretation Comments APTT Patient (test See_Comment [Automat ed code = 3173-2) message] The system which generated this result transmitted reference range : 23 - 38 Seconds . The reference range was not used to interpr et this result as normal/abnormal . FABRICE (test code = FABRICE) The [facility] patient population mean normal value for aPTT is 30 seconds. Lab Interpretation Normal (test code = 69338-6) [facility]woodProthrombin Time / INR - Code [id number] 11:53:07 Test Item Value Reference Range Interpretation Comments PROTIME PATIENT (test See_Comment [Auto mated message] code = 5964-2) The system wh ich generated this result transmitted ref erence range: 12.0 - 1 4.7 Seconds. The re ference range was not u sed to interpret this result as normal/abnor mal. INR (test code = 6301-6) Nor mal INR <1.1; Warfarin Therap eutic range 2.0 to 3. 0 or 2.5 to 3.5, dep ending upon the indica tions. Lab Interpretation (test Normal code = 75668-8) [facility]woodBasi Metabolic Panel (NA, K, CL, CO2, Glucose, BUN, Creatinine, CA) - Code [id number] 11:45:06 Test Item Value Reference Range Interpretation Comments NA (test code = 139 mmol/L 135-145 8419211793) K (test code = 3.4 mmol/L 3.5-5.0 L 6962852090) CL (test code = 101 mmol/L 98-108 1397258140) CO2 TOTAL (test code = 31 mmol/L 23-31 0258025111) AGAP (test code = 2-16 8110191498) BUN (test code = 19 mg/dL 7-23 7817304882) GLUCOSE (test code = 112 mg/dL 70-110 H 4000624684) CREATININE (test code = 0.97 mg/dL 0.50-1.04 3803532513) CALCIUM (test code = 9.8 mg/dL 8.6-10.6 0488196205) eGFR (test code = mL/min/1.73m2 9097388055) FABRICE (test code = FABRICE) Association of [...] tests). Lab Interpretation Abnormal (test code = 86386-7) [facility] without Diff - Code [id number] 11:38:02 Test Item Value Reference Range Interpretation Comments WBC (test code = See_Comment [Automated message] The 6690-2) system which ExtendEvent nerated this result tra nsmitted reference range : 4.30 - 11.10 10*3/?L. The reference range was not used to interpr et this result as normal/abnormal . RBC (test code = See_Comment [Automated message] The 789-8) system which ExtendEvent nerated this result tra nsmitted reference range : 3.93 - 5.25 10*6/?L. T he reference range was not used to interpr et this result as normal/abnormal . HGB (test code = 12.9 g/dL 11.6-15.0 718-7) HCT (test code = 38.7 % 35.7-45.2 4544-3) MCH (test code = 31.4 pg 25.9-32.8 785-6) MCV (test code = 94.2 fL 80.6-95.5 787-2) MCHC (test code = 33.3 g/dL 31.6-35.1 786-4) PLT (test code = See_Comment [Automated message] The 777-3) system which ge nerated this result tra nsmitted reference range : 166 - 358 10*3/?L. Th e reference range was not used to interpr et this result as normal/abnormal . MPV (test code = 9.7 fL 9.5-12.9 70809-6) RDW-CV (test code = 13.0 % 12.0-15.5 788-0) RDW-SD (test code = 44.6 fL 39.0-49.9 21600-1) NRBC x10^3 (test See_Comment [Automated message] The code = 8664776120) system [facility] generated this result tra nsmitted reference range : 10*3/?L. The reference r mary was not used to int erpret this result as normal/abnormal . NRBC/100 WBC (test See_Comment [Automat ed message] The code = 6862349905) system [facility] generated this result tra nsmitted reference range : 0.0 - 10.0 /100 WBCs. The reference range was not used to interpr et this result as normal/abnormal . IPF % (test code = 1946744344) [facility] GLUCOSE (AUTOMATED)2022-04-20 11:25:37 Test Item Value Reference Range Interpretation Comments POCT GLU (test code = 112 mg/dL 70-110 H Notifi ed Provider [id number]) Lab Interpretation (test Abnormal code = 04652-5) [facility] URINALYSIS W SPECIFIC [id number] 18:07:00 Test Item Value Reference Range Interpretation Comments POCT U SP GRAV (test code = 1.010 mg/dl 1.005-1.025 3255) POCT PH U (test code = 3254) 5 mg/dl 5-8 POCT U LEUK EST (test code = positive Negative - Negative 3263) POCT U NIT (test code = 3262) Negative Negative - Negative POCT U PROT (test code = Negative Negative - Negative 3259) POCT U GLU (test code = 3256) Normal Negative - Negative POCT U KETONE (test code = Negative Negative - Negative 3258) POCT U UROBILI (test code = Normal 0.2-1 3260) POCT U BILI (test code = Negative Negative - Negative 3261) POCT U BLD (test code = 3257) Negative Negative - Negative POCT U COLOR (test code = Clear 3266) POCT U APPEAR (test code = Clear 3267) Lab Interpretation (test code Abnormal = 12470-6) [facility]woodLDL Cholesterol (Direct)2022-03-01 00:00:00 Test Item Value Reference Range Interpretation Comments LDL Chol. (Direct) 43 mg/dL See_Comment [Automat ed message] The (test code = system which ge nerated 52923-5) this result tra nsmitted reference range : 0-99 mg/dL. The refe rence range was not used to interpret this result as normal/abnormal . Hemoglobin [id number] 00:00:00 Test Item Value Reference Range Interpretation Comments Hemoglobin A1c (test 5.7 % See_Comment H [Autom ated message] The code = 4548-4) system which generated this result tra nsmitted reference range : 4.8-5.6 %. The referenc e range was not used to interpret this result as normal/abnormal . Comp. Metabolic Panel (14) (CMP)2022-03-01 00:00:00 Test Item Value Reference Range Interpretation Comments Glucose (test code = 111 mg/dL See_Comment H [Autom ated message] 0025-7) The system [facility] generated this result transmitted ref erence range: 70-99 mg /dL. The reference r mary was not used to interpret this result as normal/abnor mal. BUN (test code = 18 mg/dL See_Comment [Automated message] 3094-0) The system [facility] generated this result transmitted ref erence range: 8-27 mg/ dL. The reference r mary was not used to interpret this result as normal/abnor mal. Creatinine (test code 0.94 mg/dL See_Comment [Auto mated message] = 2160-0) The system [facility] generated this result transmitted ref erence range: 0.57-1.0 0 mg/dL. The refe rence range was not u sed to interpret this result as normal/abnor mal. BUN/Creatinine Ratio 19 12-28 (test code = 3097-3) Sodium (test code = 141 mmol/L See_Comment [Automa esha message] 8071-2) The system [facility] generated this result transmitted ref erence range: 134-144 mmol/L. The ref erence range was not u sed to interpret this result as normal/abnor mal. Potassium (test code = 4.9 mmol/L See_Comment [Aut omated message] 4513-3) The system [facility] generated this result transmitted ref erence range: 3.5-5.2 mmol/L. The ref erence range was not u sed to interpret this result as normal/abnor mal. Chloride (test code = 101 mmol/L See_Comment [Auto mated message] 5-0) The system [facility] generated this result transmitted ref erence range: 96-106 m mol/L. The reference r mary was not used to interpret this result as normal/abnor mal. Carbon Dioxide, Total 26 mmol/L See_Comment [Auto mated message] (test code = 2027-9) The [facility] tem which generated this result transmitted ref erence range: 20-29 mm ol/L. The reference r mary was not used to interpret this result as normal/abnor mal. Calcium (test code = 10.4 mg/dL See_Comment H [Autom ated message] 59019-3) The system [facility] generated this result transmitted ref erence range: 8.7-10.3 mg/dL. The refe rence range was not u sed to interpret this result as normal/abnor mal. Protein, Total (test 7.1 g/dL See_Comment [Autom ated message] code = 9065-2) The system [facility] generated this result transmitted ref erence range: 6.0-8.5 g/dL. The reference r mary was not used to interpret this result as normal/abnor mal. Albumin (test code = 4.4 g/dL See_Comment [Autom ated message] 1751-7) The system [facility] generated this result transmitted ref erence range: 3.6-4.6 g/dL. The reference r mary was not used to interpret this result as normal/abnor mal. Globulin, Total (test 2.7 g/dL See_Comment [Auto mated message] code = 38650-7) The [facility] this result transmitted ref erence range: 1.5-4.5 g/dL. The reference r mary was not used to interpret this result as normal/abnor mal. A/G Ratio (test code = 1.6 1.2-2.2 1759-0) Bilirubin, Total (test 0.5 mg/dL See_Comment [Aut omated message] code = 1975-2) The system [facility] generated this result transmitted ref erence range: 0.0-1.2 mg/dL. The reference r mary was not used to interpret this result as normal/abnor mal. Alkaline Phosphatase 94 IU/L See_Comment [Autom ated message] (test code = 6768-6) The s tem which generated this result transmitted ref erence range: 44-121 I U/L. The reference r mary was not used to interpret this result as normal/abnor mal. AST (SGOT) (test code 22 IU/L See_Comment [Auto mated message] = 1920-8) The system [facility] generated this result transmitted ref erence range: 0-40 IU/ L. The reference range was not used to int erpret this result as normal/abnormal . ALT (SGPT) (test code 11 IU/L See_Comment [Auto mated message] = 2542-6) The system [facility] generated this result transmitted ref erence range: 0-32 IU/ L. The reference range was not used to int erpret this result as normal/abnormal . CBC With Differential/[id number] 00:00:00 Test Item Value Reference Range Interpretation Comments WBC (test code = 7.2 x10E3/uL See_Comment [Automated 6690-2) message] The sy stem which generated this result transmitted reference range : 3.4-10.8 x10E3/ uL. The reference r mary was not used to interpret this result as normal/abnormal . RBC (test code = 4.16 x10E6/uL See_Comment [Automate d 789-8) message] The sy stem which generated this result transmitted reference range : 3.77-5.28 x10E6 /uL. The reference r mary was not used to interpret this result as normal/abnormal . Hemoglobin (test code 13.0 g/dL See_Comment [Auto mated = 718-7) message] The sy stem which generated this result transmitted reference range : 11.1-15.9 g/dL. The reference range was not used to interpret this result as normal/abnormal . Hematocrit (test code 39.2 % See_Comment [Auto mated = 4544-3) message] The sy stem which generated this result transmitted reference range : 34.0-46.6 %. Th e reference range was not used to interpret this result as normal/abnormal . MCV (test code = 94 fL See_Comment [Automated 787-2) message] The sy stem which generated this result transmitted reference range : 79-97 fL. The reference range was not used to interpret this result as normal/abnormal . MCH (test code = 31.3 pg See_Comment [Automated 785-6) message] The sy stem which generated this result transmitted reference range : 26.6-33.0 pg. T he reference range was not used to interpret this result as normal/abnormal . MCHC (test code = 33.2 g/dL See_Comment [Automate d 786-4) message] The sy stem which generated this result transmitted reference range : 31.5-35.7 g/dL. The reference range was not used to interpret this result as normal/abnormal . RDW (test code = 12.3 % See_Comment [Automated 788-0) message] The sy stem which generated this result transmitted reference range : 11.7-15.4 %. Th e reference range was not used to interpret this result as normal/abnormal . Platelets (test code 204 x10E3/uL See_Comment [Autom ated = 777-3) message] The sy stem which generated this result transmitted reference range : 150-450 x10E3/u L. The reference r mary was not used to interpret this result as normal/abnormal . Neutrophils (test 59 % Not Estab. % code = 770-8) Lymphs (test code = 28 % Not Estab. % 736-9) Monocytes (test code 10 % Not Estab. % = 5905-5) Eos (test code = 2 % Not Estab. % 713-8) Basos (test code = 1 % Not Estab. % 706-2) Immature Cells (test code = UNLOINC) Neutrophils 4.2 x10E3/uL See_Comment [Automated (Absolute) (test code messag e] The system = 751-8) which generated this result transmitted reference range : 1.4-7.0 x10E3/u L. The reference r mary was not used to interpret this result as normal/abnormal . Lymphs (Absolute) 2.0 x10E3/uL See_Comment [Automate d (test code = 731-0) message] The system which generated this result transmitted reference range : 0.7-3.1 x10E3/u L. The reference r mary was not used to interpret this result as normal/abnormal . Monocytes(Absolute) 0.7 x10E3/uL See_Comment [Automa esha (test code = 742-7) message] The system which generated this result transmitted reference range : 0.1-0.9 x10E3/u L. The reference r mayr was not used to interpret this result as normal/abnormal . Eos (Absolute) (test 0.2 x10E3/uL See_Comment [Autom ated code = 711-2) message] The s ystem which generated this result transmitted reference range : 0.0-0.4 x10E3/u L. The reference r mary was not used to interpret this result as normal/abnormal . Baso (Absolute) (test 0.1 x10E3/uL See_Comment [Auto mated code = 704-7) message] The s ystem which generated this result transmitted reference range : 0.0-0.2 x10E3/u L. The reference r mary was not used to interpret this result as normal/abnormal . Immature Granulocytes 0 % Not Estab. % (test code = 47952-3) Immature Grans (Abs) 0.0 x10E3/uL See_Comment [Autom ated (test code = 62241-3) messag e] The system which generated this result transmitted reference range : 0.0-0.1 x10E3/u L. The reference r mary was not used to interpret this result as normal/abnormal . NRBC (test code = 63329-5) Hematology Comments: (test code = 36904-0) Lipid Panel w/ Chol/HDL [id number] 00:00:00 Test Item Value Reference Range Interpretation Comments Cholesterol, Total 109 mg/dL See_Comment [Automat ed message] (test code = 2093-3) The sys tem which generated this result transmitted ref erence range: 100-199 mg/dL. The reference r mary was not used to interpret this result as normal/abnor mal. Triglycerides (test 158 mg/dL See_Comment H [Automa esha message] code = 2571-8) The system [facility] generated this result transmitted ref erence range: 0-149 mg /dL. The reference r mary was not used to interpret this result as normal/abnor mal. HDL Cholesterol (test 41 mg/dL See_Comment [Auto mated message] code = 2085-9) The system [facility] generated this result transmitted ref erence range: >39 mg/d L. The reference range was not used to int erpret this result as normal/abnormal . T. Chol/HDL Ratio (test 2.7 ratio See_Comment [Au tomated message] code = 9830-1) The system [facility] generated this result transmitted ref erence range: 0.0-4.4 ratio. The reference r mary was not used to interpret this result as normal/abnor mal. CBC WITH [id number] 11:45:25 Test Item Value Reference Range Interpretation Comments WBC (test code = See_Comment [Automated 9890-2) message] The sy stem which generated this result transmitted reference range : 4.30 - 11.10 10*3/?L. The reference range was not used to interpret this result as normal/abnormal . RBC (test code = See_Comment [Automated 709-8) message] The sy stem which generated this result transmitted reference range : 3.93 - 5.25 10*6/?L. The reference range was not used to interpret this result as normal/abnormal . HGB (test code = 13.2 g/dL 11.6-15 718-7) HCT (test code = 40.3 % 35.7-45.2 4544-3) MCV (test code = 96.4 fL 80.6-95.5 H 787-2) MCH (test code = 31.6 pg 25.9-32.8 785-6) MCHC (test code = 32.8 g/dL 31.6-35.1 786-4) RDW-SD (test code = 48.4 fL 39-49.9 17066-8) RDW-CV (test code = 13.6 % 12-15.5 788-0) PLT (test code = See_Comment [Automated 777-3) message] The sy stem which generated this result transmitted reference range : 166 - 358 10*3/ ?L. The reference r mary was not used to interpret this result as normal/abnormal . MPV (test code = 9.8 fL 9.5-12.9 68641-1) NRBC/100 WBC (test See_Comment [Automat ed code = 7587416410) message] The system which generated this result transmitted reference range : 0.0 - 10.0 /100 WBCs. The refer ence range was not u sed to interpret th is result as normal/abnormal . NRBC x10^3 (test code See_Comment [Auto mated = 5102702422) message] The s ystem which generated this result transmitted reference range : 10*3/?L. The reference range was not used to interpret this result as normal/abnormal . GRAN MAT (NEUT) % 59.5 % (test code = 770-8) IMM GRAN % (test code 0.50 % = 8792599441) LYMPH % (test code = 24.4 % 736-9) MONO % (test code = 12.5 % 5905-5) EOS % (test code = 2.2 % 713-8) BASO % (test code = 0.9 % 706-2) GRAN MAT x10^3(ANC) 5.19 10*3/uL 1.88-7.09 (test code = 5726413179) IMM GRAN x10^3 (test 0.04 10*3/uL 0-0.06 code = 1279412640) LYMPH x10^3 (test code 2.13 10*3/uL 1.32-3.29 = 731-0) MONO x10^3 (test code 1.09 10*3/uL 0.33-0.92 H = 742-7) EOS x10^3 (test code = 0.19 10*3/uL 0.03-0.39 711-2) BASO x10^3 (test code 0.08 10*3/uL 0.01-0.07 H = 704-7) Lab Interpretation Abnormal (test code = 58670-1) [facility] [id number] 17:06:36 Test Item Value Reference Interpretation Comments Range TROPONIN I (test <0.012 See_Comment [Automated code = 6567457020) message] The system which generated this result transmitted reference range : <=0.034 ng/mL. The reference range was not used to interpret this result as normal/abnormal . FABRICE (test code = Reference (Normal) FABRICE) Range (defined by the 99th percentile reference [...] biotin. Lab Interpretation Normal (test code = 60245-8) [facility]wood[facility]. METABOLIC PANEL (14822)2021-08-26 16:55:56 Test Item Value Reference Range Interpretation Comments NA (test code = 124 mmol/L 135-145 L 2288489686) K (test code = 4.5 mmol/L 3.5-5.0 2510105503) CL (test code = 88 mmol/L 98-108 L 9933086221) CO2 TOTAL (test code = 20 mmol/L 23-31 L 6921203478) AGAP (test code = 2-16 7574544431) BUN (test code = 22 mg/dL 7-23 6619944969) GLUCOSE (test code = 148 mg/dL 70-110 H 1246949753) CREATININE (test code = 1.56 mg/dL 0.50-1.04 H 4734320142) TOTAL BILI (test code = 0.7 mg/dL 0.1-1.0 1190326987) CALCIUM (test code = 10.3 mg/dL 8.6-10.6 4848879886) T PROTEIN (test code = 7.6 g/dL 6.3-8.2 8722684880) ALBUMIN (test code = 4.6 g/dL 3.5-5.0 4971459392) ALK PHOS (test code = 89 U/L 34-122 1629935721) ALTv (test code = 16 U/L 5-35 1742-6) AST(SGOT) (test code = 40 U/L 13-40 5203958426) eGFR (test code = mL/min/1.73m2 3579114791) FABRICE (test code = FABRICE) Association of [...] tests). Lab Interpretation Abnormal (test code = 32581-6) [facility] WITH [id number] 16:44:17 Test Item Value Reference Range Interpretation Comments WBC (test code = See_Comment [Automated 2390-2) message] The sy stem which generated this result transmitted reference range : 4.30 - 11.10 10*3/?L. The reference range was not used to interpret this result as normal/abnormal . RBC (test code = See_Comment [Automated 789-8) message] The sy stem which generated this [...] RDW-SD (test code = 39.6 fL 39.0-49.9 42366-7) RDW-CV (test code = 12.0 % 12.0-15.5 788-0) PLT (test code = See_Comment [Automated 777-3) message] The sy stem which generated this result transmitted reference range : 166 - 358 10*3/ ?L. The reference r mary was not used to interpret this result as normal/abnormal . MPV (test code = 9.4 fL 9.5-12.9 L 15599-6) NRBC/100 WBC (test See_Comment [Automat ed code = 9887176295) message] The system which generated this result transmitted reference range : 0.0 - 10.0 /100 WBCs. The refer ence range was not u sed to interpret th is result as normal/abnormal . NRBC x10^3 (test code <0.01 See_Comment [Auto mated = 6532632998) message] The s ystem which generated this result transmitted reference range : 10*3/?L. The reference range was not used to interpret this result as normal/abnormal . GRAN MAT (NEUT) % 70.6 % (test code = 770-8) IMM GRAN % (test code 0.60 % = 1755097273) LYMPH % (test code = 19.8 % 736-9) MONO % (test code = 7.7 % 5905-5) EOS % (test code = 0.7 % 713-8) BASO % (test code = 0.6 % 706-2) GRAN MAT x10^3(ANC) 6.20 10*3/uL 1.88-7.09 (test code = 6896632891) IMM GRAN x10^3 (test 0.05 10*3/uL 0.00-0.06 code = 0656672803) LYMPH x10^3 (test code 1.74 10*3/uL 1.32-3.29 = 731-0) MONO x10^3 (test code 0.68 10*3/uL 0.33-0.92 = 742-7) EOS x10^3 (test code = 0.06 10*3/uL 0.03-0.39 711-2) BASO x10^3 (test code 0.05 10*3/uL 0.01-0.07 = 704-7) Lab Interpretation Abnormal (test code = 17210-8) [facility] 2 [id number] 13:55:00Reason for Exam:->SOB (shortness of breath) [facility] : 1940 Sex: FFINAL REPORT Exam: RAD, [...] Mild cardiomegaly, with trace left effusion. Signed: Benjy Gee MDRstacey Verified Date/Time: 06/05/2021 13:55:50 Reading Location: [facility] Radiology Reading Room TROCARDIOGRAM [id number] 17:14:52Result approved by Moisés Gann MD on 07/12/20"
--- NOTE | 2022-08-09 11:28 | RAD REPORT ---
EXAM DESCRIPTION: CT - Ct Stroke Brain Wo Cont - 08/09/2022 11:20 am CLINICAL HISTORY: STROKE ALERT COMPARISON: Facial Bones W/ Mpr dated 11/08/2021; Head Brain Wo Cont dated 01/24/2020 TECHNIQUE: All CT scans are performed using dose optimization technique as appropriate and may inclu de automated exposure control or mA/KV adjustment according to patient size. FINDINGS: No intracranial hemorrhage, hydrocephalus or extra-axial fluid collection.Left temporal lo be and left occipital lobe encephalomalacia. The left temporal lobe encephalomalacia may be related t o prior aneurysm clipping . The left occipital encephalomalacia is likely related to remote infarct. Cerebral atrophy. Hyperostosis frontalis. Mild chronic small vessel ischemic changes. The paranasal sinuses and mastoids are clear. The calvarium is intact. Left pterional craniotomy. IMPRESSION: No acute intracranial abnormality. Conveyed to Dr. Park by Dr. Mars at 1123 on 08/09/22
[2022-08-09] MEDS ORDERED: ACETAMINOPHEN 500 MG TAB ONE (11:38)
[2022-08-09] MEDS ORDERED: MAGNESIUM SULFATE 1 gm IVPB 1 GM/100 ML BAG IV ONE (11:39)
[2022-08-09 11:40] LABS: Absolute Lymphocytes (CBC) 2.5 K/uL (0.7-4.9); Hematocrit 39.7 % (36.0-45.0); Lymphocytes % 30.7 % (15.3-44.8); MCV 94.9 fL (80-100); MPV 8.2 fL (7.6-11.3); RBC Red Blood Cell Count 4.18 M/uL (3.86-4.86)
--- NOTE | 2022-08-09 11:53 | RAD REPORT ---
EXAM DESCRIPTION: RAD - Chest Single View - 08/09/2022 11:43 am CLINICAL HISTORY: cva COMPARISON: Chest Single View dated 11/29/2021; Chest Single View dated 11/08/2021; Chest Single View d ated 07/11/2020; Chest Single View dated 07/10/2020 FINDINGS: Lines: None. Lungs: No evidence of edema or pneumonia. Pleural: No significant pleural effusions or pneumothorax. Cardiac: Cardiomegaly. Mediastinum: Within normal limits. Bones: No acute fractures. Other: None IMPRESSION: No acute cardiopulmonary disease.
[2022-08-09 12:00] LABS: Albumin 3.9 g/dL (3.4-5.0); Bilirubin Direct 0.2 mg/dL (0-0.2); Bilirubin Indirect, Calculated 0.4 (0.2-0.8); Bilirubin Total 0.6 mg/dL (0.2-1.0); Magnesium 2.2 mg/dL (1.6-2.4); Potassium 3.9 mEq/L (3.5-5.1); Protein, Total 8.4 g/dL (6.4-8.2); Troponin High Sensitivity 15.1 pg/mL (<58.9)
--- NOTE | 2022-08-09 12:25 | EDPHYS ---
Physician Documentation [facility] Name: Kari Grace Age: 82 yrs Sex: Female : 1940 Arrival Date: 08/09/2022 Time: 10:39 Bed 18 Private MD: ED Physician [place] HPI: 08/09 11:25 This 82 yrs old Female presents to ER via Wheelchair with complaints of Dizziness, head rt pain. 11:25 Presents to the ED with right-sided headache as well as dizziness, speech disturbance, rt dizziness, generalized weakness starting yesterday morning. Symptoms have been persistent since then. The patient's daughter states that she has a slurred speech, now fluency of her speech which is new. states that she is usually able to walk without difficulty, is now too unstable to walk. Denies other acute complaints at this time. Symptoms are moderate severity, no other aggravating or alleviating factors.. Historical: - Allergies: 10:52 PENICILLINS; hb - Home Meds: 11:44 atorvastatin 40 mg Oral tab 1 tab once daily [Active]; carbidopa-levodopa 25-100 mg ap3 Oral TbER 1 tab 3 times per day [Active]; citalopram 20 mg tab 1 tab once daily [Active]; donepezil 5 mg Oral TbDL 1 tab once daily [Active]; metoprolol tartrate 25 mg Oral tab 1 tab 2 times per day [Active]; levothyroxine 100 mcg oral capsule [Active]; diclofenac sodium topical [Active]; mirtazapine 15 mg Oral tablet every day at bedtime [Active]; B-Complex oral [Active]; Vitamin D3 oral [Active]; - PMHx: 10:52 brain aneurysm; CVA; 2018; Atrial Fib; Brain bleed; Dementia; TIA; hb - Immunization history:: Adult Immunizations up to date. - Social history:: Smoking status: Patient denies any tobacco usage or history of. - Family history:: not pertinent. ROS: 11:25 Constitutional: Negative for fever, chills, and weight loss, Cardiovascular: Negative rt for chest pain, palpitations, and edema, Respiratory: Negative for shortness of breath, cough, wheezing, and pleuritic chest pain, Abdomen/GI: Negative for abdominal pain, nausea, vomiting, diarrhea, and constipation, MS/Extremity: Negative for injury and deformity, Skin: Negative for injury, rash, and discoloration, Psych: Negative for depression, anxiety, suicide ideation, homicidal ideation, and hallucinations. 11:25 Neuro: Positive for headache, speech changes. Exam: 11:25 Constitutional: This is a well developed, well nourished patient who is awake, alert, rt and in no acute distress. Head/Face: Normocephalic, atraumatic. Chest/axilla: Normal chest wall appearance and motion. Nontender with no deformity. No lesions are appreciated. Cardiovascular: Regular rate and rhythm with a normal S1 and S2. No gallops, murmurs, or rubs. Normal PMI, no JVD. No pulse deficits. Respiratory: Lungs have equal breath sounds bilaterally, clear to auscultation and percussion. No rales, rhonchi or wheezes noted. No increased work of breathing, no retractions or nasal flaring. Abdomen/GI: Soft, non-tender, with normal bowel sounds. No distension or tympany. No guarding or rebound. No evidence of tenderness throughout. Skin: Warm, dry with normal turgor. Normal color with no rashes, no lesions, and no evidence of cellulitis. MS/ Extremity: Pulses equal, no cyanosis. Neurovascular intact. Full, normal range of motion. Psych: Awake, alert, with orientation to person, place and time. Behavior, mood, and affect are within normal limits. 11:25 Neuro: Dysarthria, now fluency of speech noted. Patient has sensory deficits on the right side, strength is intact. No obvious cranial nerve deficits otherwise.. 12:09 ECG was reviewed by the Attending Physician. rt Vital Signs: 10:50 BP 130 / 75; Pulse 69; Resp 18; Temp 97.8(O); Pulse Ox 97% on R/A; Weight 79.38 kg; hb Height 5 ft. 4 in. ; Pain 8/10; 10:50 Body Mass Index 30.04 (79.38 kg, 162.56 cm) hb 10:50 Pain Scale: Adult hb MDM: 10:53 Patient medically screened. rt 12:25 Differential diagnosis: CVA, head injury, TIA, intracranial hemorrhage . Data reviewed: rt vital signs, nurses notes, lab test result(s), EKG, radiologic studies. Consideration of Admission/Observation Patient was admitted/placed on observation. Management of patient was discussed with the following: Hospitalist: Agrees to admit. I considered the following discharge prescriptions or medication management in the emergency department Medications were administered in the Emergency Department. See MAR. Discussion of test interpretation with radiology: I had a discussion with radiology regarding a test interpretation. Chronic findings seen on CT. Historians other than the Patient: Daughter/Son: . Care significantly affected by the following chronic conditions: Hemorrhagic stroke. Counseling: I had a detailed discussion with the patient and/or guardian regarding: the historical points, exam findings, and any diagnostic results supporting the discharge/admit diagnosis, lab results, radiology results, the need for further work-up and treatment in the hospital. 08/09 11:05 Order name: Basic Metabolic Panel; Complete Time: 12:16 rt 08/09 11:05 Order name: CBC with Diff; Complete Time: 12:01 rt 08/09 11:05 Order name: Hepatic Function; Complete Time: 12:16 rt 08/09 11:05 Order name: High Sensitivity Troponin; Complete Time: 12:16 rt 08/09 11:05 Order name: Magnesium; Complete Time: 12:16 rt 08/09 11:05 Order name: Protime (+inr) rt 08/09 11:05 Order name: Ptt, Activated rt 08/09 13:24 Order name: Thyroid Stimulating Hormone EDMS 08/09 13:24 Order name: Urinalysis w/ reflexes EDMS 08/09 13:24 Order name: Basic Metabolic Panel EDMS 08/09 13:24 Order name: Basic Metabolic Panel EDMS 08/09 13:24 Order name: CBC with Automated Diff EDMS 08/09 13:24 Order name: CBC with Automated Diff EDMS 08/09 13:24 Order name: Lipid Profile EDMS 08/09 13:24 Order name: Lipid Profile EDMS 08/09 13:25 Order name: Hemoglobin A1c EDMS 08/09 13:25 Order name: Hemoglobin A1c EDMS 08/09 11:05 Order name: CT Stroke Brain w/o Contrast; Complete Time: 12:01 rt 08/09 11:05 Order name: Stroke CXR 1 View; Complete Time: 12:01 rt 08/09 12:59 Order name: Brain With Cont EDMS 08/09 12:59 Order name: MRA Head Wo Cont EDMS 08/09 12:59 Order name: MRA Neck With Cont EDMS 08/09 13:15 Order name: Echo w/ Doppler rt 08/09 11:05 Order name: EKG; Complete Time: 11:06 rt 08/09 13:24 Order name: CONS Physician Consult EDMS 08/09 13:24 Order name: Physical Therapy Consult EDCT 08/09 13:24 Order name: Heart Healthy EDCT 08/09 13:25 Order name: Occupational Therapy Consult EDCT 08/09 13:25 Order name: Social Service Consult EDCT 08/09 11:05 Order name: Accucheck; Complete Time: 11:41 rt 08/09 11:05 Order name: Cardiac monitoring; Complete Time: 12:07 rt 08/09 11:05 Order name: EKG - Nurse/Tech; Complete Time: 12:07 rt 08/09 11:05 Order name: IV Saline Lock; Complete Time: 11:33 rt 08/09 11:05 Order name: Labs collected and sent; Complete Time: 11:33 rt 08/09 11:05 Order name: NPO; Complete Time: 11:05 rt 08/09 11:05 Order name: O2 Per Protocol; Complete Time: 11:05 rt 08/09 11:05 Order name: O2 Sat Monitoring; Complete Time: 11:05 rt 08/09 11:05 Order name: Stroke Swallow Screen; Complete Time: 11:41 rt EC:09 Rate is 49 beats/min. Rhythm is irregularly irregular, A fib with No ectopy. QRS [place] rt is Normal. QRS interval is normal. QT interval is prolonged at 525 msec. Administered Medications: 11:41 Drug: Acetaminophen PO 1000 mg Route: PO; ap3 12:30 Follow up: Response: No adverse reaction ap3 11:41 Drug: Magnesium Sulfate IVPB 2 grams Route: IVPB; Infused Over: 2 hrs; Site: right ap3 antecubital; 14:09 Follow up: IV Status: Completed infusion ap3 12:38 Drug: Aspirin PO 325 mg Route: PO; ap3 14:09 Follow up: Response: No adverse reaction ap3 Disposition Summary: 08/09/22 12:24 Hospitalization Ordered Hospitalization Status: Observation rt Provider: Owen Luna rt Location: Telemetry/[facility] (observation) rt Condition: Stable rt Problem: new rt Symptoms: are unchanged rt Bed/Room Type: Standard rt Room Assignment: 204(08/09/22 13:49) eb Diagnosis - Cerebrovascular accident rt Forms: - Medication Reconciliation Form rt - SBAR form rt Signatures: Dispatcher [employer] Mary Hdz RN Sue Culver RN RN ap3 Sima Valdez Ryan, MD MD rt Corrections: (The following items were deleted from the chart) 13:49 12:24 rt eb
--- NOTE | 2022-08-09 12:25 | ER ---
Nurse's Notes [facility] Name: Kari Grace Age: 82 yrs Sex: Female : 1940 Arrival Date: 08/09/2022 Time: 10:39 Bed 18 Private MD: Diagnosis: Cerebrovascular accident Presentation: 08/09 10:50 Chief complaint: Dizziness and headache since yesterday morning. Coronavirus screen: At this time, the client does not indicate any symptoms associated with coronavirus-19. Ebola Screen: No symptoms or risks identified at this time. Initial Sepsis Screen: Does the patient meet any 2 criteria? No. Patient's initial sepsis screen is negative. Does the patient have a suspected source of infection? No. Patient's initial sepsis screen is negative. Risk Assessment: Do you want to hurt yourself or someone else? Patient reports no desire to harm self or others. Onset of symptoms was August 08, 2022. 10:50 Method Of Arrival: Wheelchair 10:50 Acuity: JUNI 3 hb Triage Assessment: 11:20 Pain: Complains of pain in right ear, right bahai, right frontal area, right side of ap3 the back of head, right temporal area, right occipital area and right base of the skull Pain began 1 day ago. Neuro: Level of Consciousness is awake, alert, obeys commands, Oriented to person, place, time. Neuro: Reports dizziness, headache. Cardiovascular: Patient's skin is warm and dry. Respiratory: Airway is patent Respiratory effort is even, unlabored, Respiratory pattern is regular, symmetrical. 11:21 General: Appears distressed, Behavior is cooperative. ap3 Historical: - Allergies: 10:52 PENICILLINS; hb - Home Meds: 11:44 atorvastatin 40 mg Oral tab 1 tab once daily [Active]; carbidopa-levodopa 25-100 mg ap3 Oral TbER 1 tab 3 times per day [Active]; citalopram 20 mg tab 1 tab once daily [Active]; donepezil 5 mg Oral TbDL 1 tab once daily [Active]; metoprolol tartrate 25 mg Oral tab 1 tab 2 times per day [Active]; levothyroxine 100 mcg oral capsule [Active]; diclofenac sodium topical [Active]; mirtazapine 15 mg Oral tablet every day at bedtime [Active]; B-Complex oral [Active]; Vitamin D3 oral [Active]; - PMHx: 10:52 brain aneurysm; CVA; 2018; Atrial Fib; Brain bleed; Dementia; TIA; hb - Immunization history:: Adult Immunizations up to date. - Social history:: Smoking status: Patient denies any tobacco usage or history of. - Family history:: not pertinent. Screenin:19 Abuse screen: Denies threats or abuse. Nutritional screening: No deficits noted. ap3 Tuberculosis screening: No symptoms or risk factors identified. 11:41 [place] Swallow Protocol Brief Cognitive Screen What is your name? Normal, Where are you ap3 right now? Normal, Oral Mechanism Examination Facial Symmetry: Normal, 3 oz Water Swallow Challenge: Pt able to drink all water without stopping, coughing, choking or throat clearing: Yes Result: PASS MD Notified: [place] MD. Assessment: 14:08 General: attempted to call report, was informed by Lana, they would return my call.. ap3 14:31 General: attempted report, was informed the receiving nurse would return my call. ap3 14:44 General: report given to ALISSON Patrick . ap3 Vital Signs: 10:50 BP 130 / 75; Pulse 69; Resp 18; Temp 97.8(O); Pulse Ox 97% on R/A; Weight 79.38 kg; hb Height 5 ft. 4 in. ; Pain 8/10; 10:50 Body Mass Index 30.04 (79.38 kg, 162.56 cm) hb 10:50 Pain Scale: Adult hb ED Course: 10:41 Patient arrived in ED. mr 10:52 Triage completed. hb 10:52 Arm band placed on. hb 10:53 [place] MD is Attending Physician. rt 11:00 Sue Perez, ALISSON is Primary Nurse. ap3 11:19 Patient has correct armband on for positive identification. Bed in low position. Call ap3 light in reach. Side rails up X2. monitor technician on. Pulse ox on. NIBP on. Door closed. Noise minimized. Warm blanket given. 11:22 CT Stroke Brain w/o Contrast In Process Unspecified. EDMS 11:33 Initial lab(s) drawn, by me, sent to lab. Inserted saline lock: 22 gauge in right ap3 antecubital area, using aseptic technique. Blood collected. 11:45 Stroke CXR 1 View In Process Unspecified. EDMS 12:23 Owen Luna MD is Hospitalizing Provider. rt Administered Medications: 11:41 Drug: Acetaminophen PO 1000 mg Route: PO; ap3 12:30 Follow up: Response: No adverse reaction ap3 11:41 Drug: Magnesium Sulfate IVPB 2 grams Route: IVPB; Infused Over: 2 hrs; Site: right ap3 antecubital; 14:09 Follow up: IV Status: Completed infusion ap3 12:38 Drug: Aspirin PO 325 mg Route: PO; ap3 14:09 Follow up: Response: No adverse reaction ap3 Medication: 11:21 VIS not applicable for this client. ap3 Outcome: 12:24 Decision to Hospitalize by Provider. rt 14:59 Patient left the ED. ap3 Signatures: Dispatcher [employer] EDMS HamDipika mr Mary Ibarra, RN RN Sue Perez RN RN ap3 [place]o [place] MD MD rt
[2022-08-09] MEDS ORDERED: ASPIRIN EC 325 MG TABLET PO ONE (12:41)
[2022-08-09 12:52] LABS: Protime INR 1.04
--- NOTE | 2022-08-09 13:24 | P.HP ---
Certification for Inpatient Patient admitted to: Observation With expected LOS: <2 Midnights Patient will require the following post-hospital care: None Practitioner: I am a practitioner with admitting privileges, knowledge of patient current condition, hospital course, and medical plan of care. Services: Services provided to patient in accordance with Admission requirements found in Title 42 Section 412.3 of the Code of Federal Regulations Patient History Date of Service: 08/09/22 Primary Care Provider: Dr. Rivera Reason for admission: Dizziness, Slurred Speech History of Present Illness: Ms. Kari Grace is a pleasant 82-year-old female who has a past medical history of prior hemorrhagic CVA, dementia, Parkinson's disease, chronic atrial fibrillation s/p Watchman device, hypertension, hyperlipidemia, and hypothyroidism who presents to the [facility] [place], [place] Emergency Department for headaches, dizziness, and slurred speech. She reports that, yesterday morning, she began to experience a posterior headache with associated dizziness, nausea, and slurred speech. She describes the headache as soreness and grades at a 5-6/10 in severity. She denies any obvious inciting or alleviating factors. She has not tried taking any medications for her symptoms. On review of systems, she denies any fevers, chills, syncope, weakness, chest pain, palpitations, shortness of breath, wheezing, cough, abdominal pain, vomiting, diarrhea, constipation, myalgia, or any other symptoms. She presented to the Emergency Department for further evaluation. Upon presentation, her vital signs were stable. Her laboratory studies were notable for a creatinine of 1.26. Her EKG revealed atrial fibrillation with slow ventricular response with a prolonged QTc of 525 msec. Her chest x-ray revealed, "no acute cardiopulmonary disease." Her CT head revealed, "no acute intracranial abnormality." In the Emergency Department, she was given acetaminophen and magnesium. She was admitted to the General Internal Medicine service for further evaluation. Allergies Penicillins Allergy (Verified 07/10/20 20:19) Anaphylaxis Home medications list reviewed: Yes Home Medications: RX: Atorvastatin Calcium 40 mg PO BEDTIME 07/11/20 RX: Citalopram Hydrobromide [Celexa] 20 mg PO DAILY 07/11/20 RX: Donepezil HCl 5 mg PO DAILY 07/11/20 RX: Carbidopa/Levodopa [Carbidopa-Levodopa 25-100 Tab] 1 tab PO BID 11/30/21 Levothyroxine [Synthroid] 100 mcg PO [id number] 08/09/22 RX: Metoprolol Tartrate 50 mg PO BID 08/09/22 - Past Medical/Surgical History Diabetic: No -: History of CVA -: Atrial fibrillation with history of watchman procedure -: Hypertension -: Dementia -: Parkinson disease -: Hypothyroidism -: Watchman procedure Psychosocial/ Personal History: Patient lives at home - Family History Brother -: Heart disease, Cancer - Social History Smoking Status: Never smoker Alcohol use: No CD- Drugs: No Caffeine use: No Review of Systems General: Weakness, Other (dizziness) Eyes: Unremarkable ENT: Unremarkable Respiratory: Unremarkable Cardiovascular: Unremarkable Gastrointestinal: Nausea Genitourinary: Unremarkable Musculoskeletal: Unremarkable Integumentary: Unremarkable Neurological: Change in Speech (slurred speech) Physical Examination - Vital Signs Temperature: 97.8 F Blood Pressure: 130/75 Pulse: 69 Respirations: 18 Pulse Ox (%): 97 - Physical Exam General: Alert, In no apparent distress, Oriented x3 HEENT: Atraumatic, PERRLA, Mucous membr. moist/pink, EOMI, Sclerae nonicteric Neck: JVD not distended Respiratory: Clear to auscultation bilaterally, Normal air movement Cardiovascular: No edema, No gallops, No rubs, No murmurs, Irregular heart ra te/rhythm Gastrointestinal: Normal bowel sounds, Soft and benign, Non-distended, No tenderness, No rebound, No guarding Musculoskeletal: No clubbing Integumentary: No rashes Neurological: Normal speech, Normal strength at 5/5 x4 extr, Normal tone, Sensation intact, Cranial nerves 3-12 intact, Normal reflexes 2+, Normal affect - Studies Laboratory Data (last 24 hrs) 08/09/22 11:29: PT 11.4, INR 1.04, APTT 30.0 08/09/22 11:29: WBC 8.00, Hgb 13.4, Hct 39.7, Plt Count 237 08/09/22 11:29: Sodium 132 L, Potassium 3.9, BUN 29 H, Creatinine 1.26 H, Glucose 106, Magnesium 2.2, Total Bilirubin 0.6, AST 20, ALT 11 L, Alkaline Phosphatase 104 Assessment and Plan - Plan NIH Stroke Scale 1a. Level of consciousness: 0 - Alert; keenly responsive 1b. LOC questions: 0 - Both questions right 1c. LOC commands: 0 - Performs both tasks 2. Best Gaze: 0 - Normal 3. Visual: 0 - No visual loss 4. Facial Palsy: 0 - Normal symmetry 5a. Motor left arm: 0 - No drift for 10 seconds 5b. Motor right arm: 0 - No drift for 10 seconds 6a. Motor left le - No drift for 5 seconds 6b. Motor right le - No drift for 5 seconds 7. Limb ataxia: 0 - No ataxia 8. Sensory: 0 - Normal; no sensory loss 9. Best Language: 0 - Normal; no aphasia 10. Dysarthria: 0 - Normal 11. Extinction and Inattention: 0 - No abnormality 12. Distal motor function: 0 - No abnormality Total Score: 0 # Slurred Speech, Headache, Dizziness - evaluate for Cerebrovascular Accident # History of Hemorrhagic Cerebrovascular Accident s/p Craniotomy (2008) # Hypertension # Hyperlipidemia - Admit under observation status - Consulted Neurology and spoke with Dr. Easley - recommendations appreciated - Recommended starting aspirin, folic acid, atorvastatin - No neurologic deficits on my exam - NIHSS = 0 - Allow permissive hypertension for tonight - q4hr neurochecks - CT head = "no acute intracranial abnormality." - Ordered MR brain + MRA head/neck - Ordered transthoracic echocardiogram - PT/OT evaluation requested - Ordered risk profile: Hgb A1c, lipid panel, TSH # Chronic Atrial Fibrillation with Slow Ventricular Response s/p Watchman device # Prolonged QTc Interval (525 msec) - Not a candidate for anticoagulation given history of hemorrhagic stroke - Consulted Cardiology - recommendations appreciated - Hold home metoprolol given bradycardia - Avoid QTc prolonging agents # KDIGO Stage I Acute Kidney Injury - Creatinine = 1.26 (creatinine was 0.95 on 11/30/2021) - Urinalysis = pending - Monitor creatinine and urine output - If worsening, obtain renal ultrasound - Renally dose medications # Dementia # Parkinson's Disease - Hold home donepezil, carbidopia-levodopa pending Neuro recs # Hypothyroidism - Continue home levothyroxine # Depression - Hold home citalopram, mirtazapine given prolonged QTc interval Owen Luna M.D. - Advance Directives Does patient have a Living Will: No Does patient have a Durable POA for Healthcare: No
[2022-08-09] MEDS: FOLIC ACID 1 MG TABLET PO SCH (15:25)
--- NOTE | 2022-08-09 19:41 | CON ---
Date of Consultation: 08/09/2022 Reason For Consultation: Atrial fibrillation with slow ventricular rate. History Of Present Illness: This 82-year-old female with history of atrial fibrillation, hemorrhagic CVA, dementia, Parkinson disease, chronic atrial fibrillation status post appendage closure, dyslipi demia, and hypothyroidism presented to the emergency room with headache, dizziness, and reported slur red speech. However, on interviewing her she is speaking fluently without difficulties. No neurolog ical focal deficits. Denies any chest pain or shortness of breath. Rest of the history is outlined above in the HPI. Medications: Refer to reconciliation sheet for detailed list. Allergies: PENICILLIN. Family History: No premature coronary artery disease or cancer. Social History: She does not smoke or drink and does not use any drugs. Review of Systems: All systems reviewed and they were negative except as mentioned in HPI. Physical Examination: Vital Signs: Reviewed. Head and Neck: Pupils are equal and reactive to light. Intact eye movements. No JVD. No cervical lymphadenopathy. Neck is supple. Thyroid is not enlarged. Lungs: Clear to auscultation bilaterally. No rhonchi, wheezing, or crackles. No accessory muscle u se. Heart: Irregularly irregular. No extra sounds. Abdomen: Soft, nontender. Bowel sounds positive. No organomegaly. No masses or hernia. No rigidi ty or rebound. Extremities: No edema, clubbing, or cyanosis. Intact pulses. Skin: No rash. Neurologic: Alert, awake, and oriented x3. No acute focal deficits appreciated. Investigations: BUN 29, creatinine 1.26. Hemoglobin 13.4. INR is 1.04. Assessment And Recommendation: 1.Atrial fibrillation, rate is controlled and she is status post appendage closure. There was a con cern about possible transient ischemic attack versus stroke. If stroke is confirmed, then I will rec ommend to do a transesophageal echocardiogram to rule out any device related thrombosis, but if there is no stroke, then I would recommend just using baby aspirin 81 mg daily and as far as the heart rat e concern, I will monitor on telemetry and we will adjust her medications accordingly. 2.Questionable cerebrovascular accident. Workup is in process. We will follow. 3.Hypertension. Blood pressure is controlled. SR/MODL Voice ID: [id number] Report ID: [id number]
[2022-08-09] MEDS: ATORVASTATIN 40 MG TAB PO SCH (20:24)
[2022-08-09] MEDS: MELATONIN 5 MG TABLET PO PRN (22:15)
[2022-08-10] MEDS: ACETAMINOPHEN 325 MG TABLET PO PRN ×2 (00:32→21:10)
--- NOTE | 2022-08-10 01:41 | CON ---
Reason For Consultation: Consultation called to rule out acute stroke. History Of Present Illness: Ms. Grace is an 82-year-old patient with recent hemorrhagic stroke with left-sided symptoms from which she has recovered well. Stroke involved posterior circulation and vi sual deficits. She has Parkinson's, dementia, chronic atrial fibrillation, and status post Watchman. In addition, risk factors for stroke are hypertension and dyslipidemia and she has hypothyroidism. The reason for coming to the hospital revolved around dizziness and slurred speech, which the patien t said was positional. She noted symptoms occurred while sitting up and while attempting to stand up . She did report those symptoms seemed to subside somewhat when lying back. At [facility] she did have posterior headache along with the symptoms as described, headache is around 5 to 6/10. Her arm and leg on the left, had no significant change in terms of strength loss. Following stroke, she recovered very well and can move the left arm, although there is some pain on range of motion in terms of elevation of the left arm, but she denies any worsening weakness and feels that they are lef t sided at baseline. Her head CT scan showed no acute ischemic or hemorrhagic findings. The study i dentified a left temporal lobe and left occipital lobe area of encephalomalacia related to prior aneu rysm clipping and left occipital remote infarct. There was hyperostosis frontalis and mild chronic s mall vessel ischemic disease. EKG showed atrial fibrillation. Cardiology Service evaluated the nuria ent and recommended aspirin, especially if there is no clot identified in the heart on echocardiogram . The patient reportedly had an MRI; however, there is no report of an MRI on the chart. Past Medical History: As noted above. Allergies: PENICILLIN. Medications: At home are atorvastatin 40 mg at bedtime, Celexa 20 mg daily, donepezil 5 mg daily, ca rbidopa levodopa 25/100 twice daily, Synthroid 100 mcg daily, and metoprolol 50 mg twice daily. Family History: Heart disease and cancer in brother. Social History: No alcohol, tobacco, or IV drug use. Review of Systems: Headache, positional dizziness, lightheadedness, and slurred speech. Otherwise, no fevers or chills. No myalgias or arthralgias. There is decreased range of motion in the left arm and some pain when elevating the left arm. No other positives on systems review. Physical Examination: Vital Signs: Blood pressure 123/74, pulse 55, respiratory rate 16, temperature 97.5, and oxygen satu ration 98%. General: Ms. Grace is resting comfortably in the hospital bed in the emergency room. HEENT: She appears normocephalic. She has poor dentition. She otherwise is atraumatic. Sclerae an icteric. Oropharynx moist. Neck: Supple. Chest: Clear. Heart: Irregular. Abdomen: Soft. Extremities: No significant edema or cyanosis. Neurologic: She has some appearance of deficit in the visual field on the right, but she has symmetr ic face with good excursions on smiling. The strength is equal, although there is pain limiting elev ation of the left arm. Sensory exam is intact in both upper and lower extremities. She has smooth c oordinated movements in the upper and lower extremities. Laboratory Studies: Complete blood count with differential is completely normal. INR 1.04. Coal Screener john did show elevated creatinine of 1.26, sodium low at 132, calcium slightly elevated at 10.3. TSH normal at 1.1. Assessment: Ms. Grace is an 82-year-old patient with a prior left occipital stroke and right visual deficits. No focal findings in terms of face, arm, and leg numbness and weakness. No evidence of a n acute stroke. She appears to have orthostatic related changes in terms of her lightheadedness, but while in hospital and receiving fluids, her blood pressures have been in systolics of 120s to 130s. Actually when she was in the emergency room, she had systolic blood pressure lowest around 98. Plan: 1.Address hydration issue and medication management to potentially decrease orthostatic changes. 2.The patient may continue with aspirin 81 mg daily as per Cardiology. 3.No further neurological workup is needed. She does not have evidence of an acute stroke. 4.She may continue with statin per Cardiology and add folic acid 1 mg daily. 5.She may be discharged home and follow up in Dr. Easley's clinic within the month. GRANT/REYNALDO Voice ID: [id number] Report ID: [id number]
[2022-08-10 04:01] LABS: Magnesium 2.1 mg/dL (1.6-2.4); Phosphorus 3.5 mg/dL (2.5-4.9); Potassium 2.8 mEq/L (3.5-5.1)
[2022-08-10 04:12] LABS: Lymphocytes % 37.5 % (15.3-44.8); MCV 94.1 fL (80-100); MPV 8.4 fL (7.6-11.3); RBC Red Blood Cell Count 4.47 M/uL (3.86-4.86)
[2022-08-10] MEDS: LEVOTHYROXINE SOD 0.1 MG TAB PO SCH (05:56)
[2022-08-10] MEDS ORDERED: SODIUM CHL 0.9% 1000 ML BAG IV ONE (07:53)
[2022-08-10] MEDS: NA CHLORIDE 0.9% 1,000 ML IV SCH ×2 (09:41→21:08)
[2022-08-10] MEDS: FOLIC ACID 1 MG TABLET PO SCH (09:41)
[2022-08-10] MEDS: ASPIRIN 81 MG CHEWABLE TABLET PO SCH (09:41)
[2022-08-10 11:07] LABS: Specific Gravity 1.006 (1.005-1.030); Urine Bacteria <20 /HPF (<20); Urine Bilirubin NEGATIVE (Negative); Urine Blood Negative (Negative); Urine Clarity Clear (Clear); Urine Color Colorless (Yellow); Urine Glucose NEGATIVE (Negative); Urine Protein NEGATIVE (Negative); Urine RBC <5 /HPF (None Seen); Urine Urobilinogen Normal (Normal); Urine pH 7.5 (5.0-7.0)
[2022-08-10 14:52] LABS: Potassium 3.3 mEq/L (3.5-5.1)
--- NOTE | 2022-08-10 15:07 | P.PN ---
Subjective Date of Service: 08/10/22 Primary Care Provider: Dr. Rivera Chief Complaint: Dizziness, Slurred Speech No acute events overnight. She reports that she feels significantly better. She is now back to her baseline mental status and demonstrates no neurologic deficits. This morning, her sodium level has dropped. Per RN, there is concern that she may not be consuming much fluid. Will start her on Normal Saline and trend BMP. Review of Systems 10-point ROS is otherwise unremarkable General: Weakness (generalized) Physical Examination - Vital Signs Temperature: 97.4 F Blood Pressure: 135/84 Pulse: 60 Respirations: 16 Pulse Ox (%): 97 Assessment And Plan - Plan - Physical Exam General: Alert, In no apparent distress, Oriented x3 HEENT: Atraumatic, PERRLA, Mucous membr. moist/pink, EOMI, Sclerae nonicteric Neck: JVD not distended Respiratory: Clear to auscultation bilaterally, Normal air movement Cardiovascular: No edema,No murmurs, Irregular heart rate/rhythm Gastrointestinal: Normal bowel sounds, Soft, Non-distended, No tenderness Musculoskeletal: No clubbing Integumentary: No rashes Neurological: Normal speech, Normal strength at 5/5 x4 extr, Normal tone, Sensation intact, Cranial nerves 3-12 intact, Normal reflexes 2+, Normal affect - Plan NIH Stroke Scale 1a. Level of consciousness: 0 - Alert; keenly responsive 1b. LOC questions: 0 - Both questions right 1c. LOC commands: 0 - Performs both tasks 2. Best Gaze: 0 - Normal 3. Visual: 0 - No visual loss 4. Facial Palsy: 0 - Normal symmetry 5a. Motor left arm: 0 - No drift for 10 seconds 5b. Motor right arm: 0 - No drift for 10 seconds 6a. Motor left le - No drift for 5 seconds 6b. Motor right le - No drift for 5 seconds 7. Limb ataxia: 0 - No ataxia 8. Sensory: 0 - Normal; no sensory loss 9. Best Language: 0 - Normal; no aphasia 10. Dysarthria: 0 - Normal 11. Extinction and Inattention: 0 - No abnormality 12. Distal motor function: 0 - No abnormality Total Score: 0 # Slurred Speech, Headache, Dizziness - resolved # History of Hemorrhagic Cerebrovascular Accident s/p Craniotomy (2008) # Hypertension # Hyperlipidemia - Admit under observation status - Consulted Neurology and spoke with Dr. Easley - recommendations appreciated - Recommended starting aspirin, folic acid, atorvastatin - Low suspicion for CVA - cannot exclude TIA - No neurologic deficits on my exam - NIHSS = 0 - Allow permissive hypertension for tonight - q4hr neurochecks - CT head = "no acute intracranial abnormality." - Ordered MR brain + MRA head/neck, but unable to obtain due to prior aneurysm clips - Ordered transthoracic echocardiogram - PT/OT evaluation requested - Ordered risk profile: - Hgb A1c = 5.7 % - Lipid panel = TC 108, LDL 36, HDL 47, TG 125 - TSH = 1.10 # Suspect Hypovolemic Hyponatremia - Na: 132 -> 129 - TSH = 1.10 - Started Normal Saline @ 75 mL/hr - Serial BMP # Chronic Atrial Fibrillation with Slow Ventricular Response s/p Watchman device # Prolonged QTc Interval (525 msec) - Not a candidate for anticoagulation given history of hemorrhagic stroke - Consulted Cardiology - recommendations appreciated - Hold home metoprolol given bradycardia - Avoid QTc prolonging agents # KDIGO Stage I Acute Kidney Injury # History of Recurrent Urinary Tract Infections - Creatinine = 1.26 -> 1.21 (creatinine was 0.95 on 11/30/2021) - Urinalysis = 500 leukocyte esterase, 20-50 WBCs - Started empiric cephalexin as UTI can sometimes cause neurologic changes - Monitor creatinine and urine output - If worsening, obtain renal ultrasound - Renally dose medications # Dementia # Parkinson's Disease - Hold home donepezil, carbidopia-levodopa pending Neuro recs # Hypothyroidism - Continue home levothyroxine # Depression - Hold home citalopram, mirtazapine given prolonged QTc interval Owen Luna M.D.
[2022-08-10] MEDS: CEPHALEXIN 500 MG CAP PO SCH ×2 (15:13→21:07)
[2022-08-10] MEDS ORDERED: POTASSIUM CL SA 10 MEQ TAB PO ONE (15:30)
[2022-08-10 15:46] VITALS: BMI 29.9
[2022-08-10 20:43] LABS: Potassium 3.2 mEq/L (3.5-5.1)
[2022-08-10] MEDS: MELATONIN 5 MG TABLET PO PRN (21:07)
[2022-08-10] MEDS: ATORVASTATIN 40 MG TAB PO SCH (21:07)
[2022-08-11 06:51] LABS: Potassium 3.3 mEq/L (3.5-5.1)
[2022-08-11] MEDS ORDERED: POTASSIUM CL SA 10 MEQ TAB PO ONE (07:20)
[2022-08-11] MEDS: LEVOTHYROXINE SOD 0.1 MG TAB PO SCH (07:45)
[2022-08-11 08:54] VITALS: BP 152/85; TEMP 97.1
--- NOTE | 2022-08-11 09:54 | P.DS ---
Admission Date: 08/10/22 Discharge Date: 08/11/22 Primary Care Provider: Dr. Bray Disposition: ROUTINE DISCHARGE Discharge Condition: GOOD Reason for Admission: Dizziness, Slurred Speech Consultations: 1. Neurology 2. 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 Kari Grace is a pleasant 82-year-old female who has a past medical history of prior hemorrhagic CVA, dementia, Parkinson's disease, chronic atrial fibrillation s/p Watchman device, hypertension, hyperlipidemia, and hypothyroidism who was admitted to [facility] 08/09/2022 for headaches, dizziness, and slurred speech. She was admitted to the Medicine service. Upon further evaluation, her CT head revealed, "no acute intracranial abnormality." Her chest x-ray revealed, "no acute cardiopulmonary disease." She was admitted due to concern for a cereb rovascular accident. Neurology was consulted and she was evaluated by Dr. Easley. He has a low suspicion for a cerebrovascular accident and recommended no further neurologic evaluation. He has cleared her for discharge from his standpoint. He recommended that she be discharged on aspirin, folic acid, and atorvastatin. Of note, we were unable to obtain MRI or MRA due to her having aneurysm clips. Further history would reveal that she has had poor fluid intake. Her laboratory studies supported this as she had a mild acute kidney injury and hypovolemic hyponatremia. She was treated with IV fluids and, over the course of her hospitalization, her symptoms and laboratory studies improved. She states that she felt very well this morning and, per her family, she is now at her neurologic baseline. At the family's request, a urinalysis was obtained to evaluate her neurologic changes given that she has a history of recurrent urinary tract infections. The urine culture returned positive for gram-negative rods. She was started on cephalexin and responded well. I advised that she wait for the cultures and speciation; however, she and her family stated that she would like to leave the hospital this morning for Mother's Day. They do not wish to wait for the results. On 08/11/2022, she was seen on morning rounds and deemed medically stable for discharge. She was discharged with instructions to schedule follow-up appointments with her PCP (Dr. Navarrete), with Neurology (Dr. Easley), and with Cardiology (Dr. Camp). She was provided a prescription for cephalexin. She and her family members were given the opportunity to ask questions and reported no further questions. Furthermore, all questions were answered to the best of my ability. A copy of this discharge summary will be sent to the above providers to facilitate continuity of care. Today, I personally spent 25 minutes on her case, of which greater than 50% of the time was spent in patient education, counseling, and coordination of care as described above. - Physical Exam General: Alert, In no apparent distress, Oriented x3 HEENT: Atraumatic, PERRLA, Mucous membr. moist/pink, EOMI, Sclerae nonicteric Neck: JVD not distended Respiratory: Clear to auscultation bilaterally, Normal air movement Cardiovascular: No edema,No murmurs, Irregular heart rate/rhythm Gastrointestinal: Normal bowel sounds, Soft, Non-distended, No tenderness Musculoskeletal: No clubbing Integumentary: No rashes Neurological: Normal speech, Normal strength at 5/5 x4 extr, Normal tone, Sensation intact, Cranial nerves 3-12 intact, Normal reflexes 2+, Normal affect NIH Stroke Scale 1a. Level of consciousness: 0 - Alert; keenly responsive 1b. LOC questions: 0 - Both questions right 1c. LOC commands: 0 - Performs both tasks 2. Best Gaze: 0 - Normal 3. Visual: 0 - No visual loss 4. Facial Palsy: 0 - Normal symmetry 5a. Motor left arm: 0 - No drift for 10 seconds 5b. Motor right arm: 0 - No drift for 10 seconds 6a. Motor left le - No drift for 5 seconds 6b. Motor right le - No drift for 5 seconds 7. Limb ataxia: 0 - No ataxia 8. Sensory: 0 - Normal; no sensory loss 9. Best Language: 0 - Normal; no aphasia 10. Dysarthria: 0 - Normal 11. Extinction and Inattention: 0 - No abnormality 12. Distal motor function: 0 - No abnormality Total Score: 0 Vital Signs/Physical Exam: Temp Pulse Resp BP Pulse Ox 97.1 F 53 14 152/85 H 96 08/11/22 08:00 08/11/22 08:00 08/11/22 08:00 08/11/22 08:00 08/11/22 08:00 Laboratory Data at Discharge: WBC 8.10 thou/uL (4.3-10.9) 08/10/22 02:24 Hgb 14.4 g/dL (12.0-15.0) 08/10/22 02:24 Hct 42.0 % (36.0-45.0) 08/10/22 02:24 Plt Count 200 thou/uL (152-406) 08/10/22 02:24 PT 11.4 SECONDS (9.5-12.5) 08/09/22 11:29 INR 1.04 08/09/22 11:29 APTT 30.0 SECONDS (24.3-36.9) 08/09/22 11:29 Sodium 133 mEq/L (136-145) L 08/11/22 05:58 Potassium 3.3 mEq/L (3.5-5.1) L 08/11/22 05:58 BUN 21 mg/dL (7-18) H 08/11/22 05:58 Creatinine 1.00 mg/dL (0.55-1.02) 08/11/22 05:58 Glucose 108 mg/dL (74-106) H 08/11/22 05:58 Phosphorus 3.5 mg/dL (2.5-4.9) 08/10/22 02:24 Magnesium 2.1 mg/dL (1.6-2.4) 08/10/22 02:24 Total Bilirubin 0.6 mg/dL (0.2-1.0) 08/09/22 11:29 AST 20 U/L (15-37) 08/09/22 11:29 ALT 11 U/L (13-56) L 08/09/22 11:29 Alkaline Phosphatase 104 U/L (45-117) 08/09/22 11:29 Triglycerides 125 mg/dL (<150) 08/10/22 02:24 Cholesterol 108 mg/dL (<200) 08/10/22 02:24 HDL Cholesterol 47 mg/dL (40-60) 08/10/22 02:24 Cholesterol/HDL Ratio 2.30 08/10/22 02:24 Home Medications: Atorvastatin Calcium 40 mg PO BEDTIME 07/11/20 Carbidopa/Levodopa [Carbidopa-Levodopa 25-100 Tab] 1 tab PO BID 11/30/21 Levothyroxine [Synthroid*] 100 mcg PO [id number] 08/09/22 Lidocaine 5% [Lidocaine HCl] 1 appl TOP DAILY 08/09/22 Metoprolol Tartrate 25 mg PO BID 08/09/22 Aspirin Chewable [Aspirin Chewable*] 81 mg PO DAILY tab.chew 08/11/22 Cephalexin [Keflex*] 500 mg PO BID 5 Days #10 cap 08/11/22 Folic Acid 1 mg PO DAILY #30 08/11/22 New Medications: Folic Acid 1 mg PO DAILY #30 Cephalexin [Keflex*] 500 mg PO BID 5 Days #10 cap Physician Discharge Instructions: 1. Please call and schedule a follow-up appointment with your PCP (Dr. Navarrete) in 3-5 days 2. Please call and schedule a follow-up appointment with Neurology (Dr. Easley) in 5-7 days 3. Please call and schedule a follow-up appointment with Cardiology (Dr. Camp) in 3-5 days Diet: AHA Activity: Ad dimple Followup: Roby Navarrete MD [OUTSIDE PHYSICIAN] - Ciro Camp MD [ACTIVE - CAN ADMIT] - Zach Easley MD [ASSOCIATE-ACTIVE - CAN ADMIT] - Time spent managing pt's care (in minutes): 25
[2022-08-11] MEDS: CEPHALEXIN 500 MG CAP PO SCH (09:57)
[2022-08-11] MEDS: ASPIRIN 81 MG CHEWABLE TABLET PO SCH (09:57)
[2022-08-11] MEDS: FOLIC ACID 1 MG TABLET PO SCH (09:57)
[2022-08-11 10:51] VITALS: O2SAT 96
--- NOTE | 2022-08-11 14:47 | EKG ---
Test Date: 2022-08-09 Test Time: 11:57:18 Educational Sign Language Interpreter: ALP MEASUREMENT RESULTS: Intervals: Rate: 49 [place]: QRSD: 114 QT: 582 QTc: 525 [place]: P: NH: QRS: 20 T: -81 INTERPRETIVE STATEMENTS: Atrial fibrillation Septal infarct, age undetermined ST & T wave abnormality, consider inferior ischemia or digitalis effect ST & T wave abnormality, consider anterolateral ischemia or digitalis effect Prolonged QT Abnormal ECG Compared to ECG 11/29/2021 22:02:38 ST (T wave) deviation now present Prolonged QT interval now present Right bundle-branch block no longer present T-wave abnormality no longer present Myocardial infarct finding still present Possible ischemia still present Electronically Signed On 08-11-22 14:44:28 CDT by Ciro Camp
== END 2022-08-11 11:07 | disposition home or self-care (01) | DRG 690 ==
LOC: ER 10:39 → ERHOLD 13:20 → 2ND 14:45 → OBSVTOIN 08-10 15:12
PROVIDERS: ADMIT Internal Medicine; ATTEND Internal Medicine
DX: N39.0 Urinary tract infection, site not specified (principal); F02.83 Dementia in other diseases classified elsewhere, unspecified severity, with mood disturbance; I48.20 Chronic atrial fibrillation, unspecified; N17.9 Acute kidney failure, unspecified; E87.1 Hypo-osmolality and hyponatremia; Z16.12 Extended spectrum beta lactamase (ESBL) resistance; G20 Parkinson's disease; E78.5 Hyperlipidemia, unspecified; E03.9 Hypothyroidism, unspecified; E86.0 Dehydration; E86.1 Hypovolemia; I10 Essential (primary) hypertension; R94.31 Abnormal electrocardiogram [ECG] [EKG]; Z88.0 Allergy status to penicillin; Z86.73 Personal history of transient ischemic attack (TIA), and cerebral infarction without residual deficits; Z79.890 Hormone replacement therapy; Z79.899 Other long term (current) drug therapy
CPT/HCPCS: 36415; 70450; 71045; 80048; 80061; 80076; 81001; 83036; 83735; 84100; 84443; 84484; 85025; 85610; 85730; 87077; 87086; 87088; 87186; 93005; 96365; 96366; 97161; 99285; G0378; J3475; J7030

== ENCOUNTER 2022-08-12 11:26 | Inpatient (IN) | payer OTHER ==
--- OUTSIDE RECORDS SUMMARY | 2022-08-12 11:44 | XMS REPORT | Continuity of Care Document ---
:1940 Author Organization [facility] t Address [address] [place] [address] [address] [place] [address] Care Team Providers Name Role Phone DAT TINEO Primary Care Physician Unavailable Diane Monk Attending Clinician Unavailable BLANCA WOLFE Attending Clinician Unavailable Evelyn Cox Attending Clinician Unavailable Sidney Guardado Attending Clinician Unavailable COTY FERNANDEZ Attending Clinician Unavailable MARIOLA BURLESON Attending Clinician Unavailable CARLY MORALES Attending Clinician Unavailable ALEXA TAYLOR Attending Clinician Unavailable RYLAN NAVARRETE Attending Clinician Unavailable Rambo AGUILA, Rylan Attending Clinician Grant Oakes MD Attending Clinician SUE GRIRE Attending Clinician Unavailable Nurse, [facility] Attending Clinician Unavailable Unknown, Attending Attending Clinician Unavailable UNKNOWN, ATTENDING Attending Clinician Unavailable [email or web address] Attending Clinician Unavailable Coty Izquierdo Attending Clinician COTY COOPER Attending Clinician Unavailable Mary [facility] Attending Clinician 2, [facility] Attending Clinician Unavailable MARIETTA GROVER Attending Clinician Unavailable Leeroy Kraus DO Attending Clinician Marietta Grover MD Attending Clinician Sue Grier MD Attending Clinician Doctor Unassigned, [place] Attending Clinician Unavailable Lanny Johnston PA-C Attending Clinician Poly Sauceda LCSW Attending Clinician Blanca Wolfe MD Attending Clinician Stacie Joseph RN Attending Clinician Unavailable NELLA GILBERT Attending Clinician Unavailable Halina Kurtz DO Attending Clinician Jeevan Roman MD Attending Clinician Nella Gilbert DO Attending Clinician MOISÉS GANN Attending Clinician Unavailable HALINA KURTZ Attending Clinician Unavailable Moisés Gann MD Attending Clinician MOISÉS GANN Attending Clinician Unavailable Kaleb Majano MD [...] Date Expiration Date Deb beltran AETNA MEDICARE [id number] 2020 OUT OF NETWORK 00:00:00 [employer]/AARP [id number] 2022 MEDICARE 00:00:00 ADVANTAGE MEDICARE PLAN [id number] HMO - AETNA AARP [facility] [id number] 2017 ADVANTAGE 00:00:00 HMO-POS-C CHOICE [id number] PPO/MEDICARE PPO AETNA MEDICARE 53 [id number] 2020 [facility] [place] MB [id number] 2004 [facility] NOVITAS 00:00:00 - [facility] [place] MB [id number] 2004 [facility] NOVITAS 00:00:00 - [facility] [place] MEDIC[place] C1 [id number] [facility] AETNA MEDICARE C1 [id number] [facility] AETNA MEDICARE C1 [id number] [facility] AETNA MEDICARE C1 [id number] [facility] AETNA MEDICARE C1 [id number] [facility] AETNA MEDICARE C1 [id number] [facility] Problems Condition Condition Condition Status Onset Resolution Last Treating Co mments Source Name Details Category Date Date Treatment Clinician Date Sundowning Sundowning Disease Active U nivers 3- ity of 00:00: [place] [facility] Agitated Agitated Disease Active Unive rs 3- ity of 00:00: [place] [facility] Dizziness Dizziness Disease Active Uni vers 2- ity of 00:00: [place] [facility] 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 00:00: [place] depression depression 00 Me dical Branch Primary Primary Disease Active Univers parkinsoni parkinsoni 2- it y of sm sm 00:00: [place] [facility] Loss of Loss of Disease Active Univers appetite appetite 2-21 ity of 00:00: Medical Branch Mild Mild Disease Active Univers dehydratio dehydratio 2-21 it y of n n 00:00: Medical Branch Elevated Elevated Disease Active Unive rs brain brain 9-17 ity of natriureti natriureti [place] c peptide c peptide 00 Medi manny (BNP) (BNP) Branch level level Acute on Acute on Disease Active Unive rs chronic chronic 9-17 ity of diastolic diastolic 00:00: [place] CHF CHF 00 Medical (congestiv (congestiv Br anch e heart e heart failure), failure), NYHA class NYHA class 3 3 Epigastric Epigastric Disease Active U nivers pain pain 9-15 ity of 00:00: Medical Branch Lightheade Lightheade Disease Active U nivers dness dness 8-17 ity of 00:00: Medical Branch Fall Fall Disease Active Univers 8-17 ity of 00:00: Medical Branch Nonspecifi Nonspecifi Disease Active U nivers c abnormal c abnormal 8-17 it y of results of results of 00:00: [place] function function 00 Medica l study of study of Branch kidney kidney Other Other Disease Active Univers chest pain chest pain 3-23 it y of 00:00: [place] [facility] SOB SOB Disease Active 2016-03 Univers (shortness (shortness 1-08 it y of of breath) of breath) [place] Anemia Anemia Disease Active 2016-03 [facility] 1-08 College 00:00: of 00 Medicin e Anemia Anemia Disease Active 2016-03 Univers 0-20 ity of 00:00: [place] [facility] Dyslipidem Dyslipidem Disease Active U nivers ia ia 5-17 ity of 00:00: [place] [facility] Atrial Atrial Disease Active [facility] fibrillati fibrillati 5-17 Co llege on on 00:00: of 00 Medicin e Hemorrhagi Hemorrhagi Disease Active 2015-03 U nivers c stroke c stroke 1-16 ity of 00:00: [place] [facility] 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' txe 16 it y of s disease s disease 00:00[place] with with 00 Medical behavioral behavioral Br anch disturbanc disturbanc e e Encephalop Encephalop Disease Active 2015-03 U morgan athy athy 16 ity of 00:00: [place] 00 Medical Branch Diarrhea Diarrhea Disease Active 2015-03 Unive rs 1-16 ity of 00:00: [place] 00 Medical Branch History of [...] Disease Active Methodi a-fib s/p a-fib s/p 9 st Left Left 00:00: [facility]osp[facility] atrial atrial 00 l appendage appendage clipping clipping Obesity, Obesity, Disease Recurre Meth ru Class II, Class II, nce 829 st BMI BMI 00:00: Hospita 35-39.9 35-39.9 00 l Syncope Syncope Disease Active 2014-03 Univers 1-11 ity of 00:00: [place] 00 Medical Branch Hypercalce Hypercalce Disease Active U morgan ryland ryland 7-15 ity of 00:00: [place] 00 Medical Branch Hyperhomoc Hyperhomoc Disease Active U morgan ysteinemia ysteinemia 7-15 it y of 00:00: [place] 00 Medical Branch Paranoia Paranoia Disease Active Unive rs 7-15 ity of 00:00: [place] 00 Medical Branch Vascular Vascular Disease Active Jesus rs dementia dementia 7-15 ity of 00:00: [place] 00 Medical Branch Unspecifie Unspecifie Disease Active U nivers d atrial d atrial 10-15 ity of fibrillati fibrillati 00:00: [place] on on Medical [place] Atrial Atrial Disease Recurre [facility] fibrillati fibrillati nce 10-15 Kizzy kes on by 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 00 Ce nter diogram diogram TIA TIA Disease Recurre Methodi (transient (transient nce 03-31 st ischemic ischemic 00:00: Hospit a attack) attack) 00 l h/o h/o Disease Recurre Methodi Intracrani Intracrani nce 03-31 st al al 00:00: Hospita Aneurysm Aneurysm 00 l s/p s/p clipping clipping Chronic Stage 3a Problem Common kidney chronic Spirit disease kidney [facility] stage 3A disease St (disorder) (CKD) [facility] [id number] Obesity Problem Commo n (BMI [facility] 30-39.9) [facility] Dementia Dementia Problem Commo n [facility] Essential Essential Problem Com mon hypertensi hypertensi Sp rachell on on [facility] [id number] Acquired Problem Comm on hypothyroi [facility] Late History of Problem Commo n effects of hemorrhagi Sp rachell cerebrovas [facility] cular [facility] accident Medical (CVA) with Center residual deficit [id number] Osteoarthr Problem C ommon [address] itis of [facility] spine, unspecifie [facility] spinal Medical osteoarthr Center itis complicati on status Overactive OAB Problem Commo n bladder (overactiv Spiri t e bladder) [facility] [id number] DDD Problem Common (degenerat Spirit raj disc - [facility] disease), [facility] Functional Functional Problem C ommon urinary incontinen Spiri t incontinen [facility] Vitamin D Vitamin D Problem Com mon deficiency deficiency Sp rachell [facility] [id number] Splenomega Problem Com mon ly [facility] [id number] Other Problem Common urinary Spirit incontinen - [facility] [id number] Recurrent Problem Com mon UTI [facility] [id number] Chronic Problem Common cystitis [facility] - [facility] [id number] PAD Problem Common (periphera Spirit l artery - CHI disease) [facility] Depression Depression Problem C ommon [facility] [id number] Chronic Problem Common fatigue [facility] Hypertensi Hy ht/kd Problem Com mon ve heart NOS I-IV Spirit and w/o hf - CHI chronic kidney [facility] [id number] Gastroesop Problem Co mmon hageal Spirit reflux - CHI disease, St unspecifie [facility] d whether Medical esophagiti Center s present Hypothyroi Hypothyroi Disease Recurre Methodi dism dism [...] 2016-03 Univers INGREDI 04-19 ity of 00:00: Medical Branch Penicill Propensi Active Swelling Whole [...] to e drug Penicill Propensi Active Swelling Whole [facility] or ins ty to 7-05 body College adverse 00:00: swelling of reaction 00 Medicin s to e drug Penicill Propensi Active Swelling [facility]: Medical reaction 00 Center s Penicill Propensi Active Swelling [facility] 10[facility]02 [facility] adverse 00:00: Medical reaction 00 Center s PENICILL Allergy Active Swelling [facility] INS 10-02 00:00: 00 [id number] Drug Active rash Common 85 allergy [facility] Social History Social Habit Start Date Stop Date Quantity Comments Source History of Tobacco [facility] - [facility] Gender identity [facility] Sexual orientation Method ist Hospital Exposure to 2022-07-30 2022-08-09 Not sure University of SARS-CoV-2 (event) 00:00:00 09:52:00 [facility] Tobacco use and 2021-12-20 2021-12-20 Smokeless Universit y of exposure 00:00:00 00:00:00 tobacco non-user [facility] History of Social 2016-09-29 2016-09-[address] function 00:00:00 00:00:00 Hospital Alcohol intake 2015-12-25 2015-12-25 Current [facility] 00:00:00 00:00:00 non-drinker of Hospital alcohol (finding) Cigarette 2013-12-21 2013-12-21 [facility] of pack-years 00:00:00 00:00:00 Medicine Sex [birth year] [facility] 00:00:00 00:00:00 Hospital Smoking Status Start Date Stop Date Source Ex-smoker 2021-12-20 00:00:00 2021-12-20 00:00:00 Universi ty of [facility] Never smoked tobacco [facility] Medications Ordered Filled Start Stop Current Ordering Indication Dosage Frequency Signature Comments Components Source Medication Medication Date Date Medication? Clinician (SIG) Name Name rivastigmin Yes [id number] 4.5mg Take 1 Univers e tartrate 5-12 capsule by ity of 4.5 mg 00:00: mouth [place] capsule 00 every Medical morning Branch and evening. metoprolol 2022- No 100mg Take 4 Uni vers tartrate 25 4-24 04-24 tablets by i ty of mg tablet 17:01: 00:00 mouth in [place] :00 the Medical morning Branch and 4 tablets in the evening. metoprolol 2023-0 Yes 100mg Take 4 Univ ers tartrate 25 4-24 tablets by it y of mg tablet 00:00: [place] the [place] morning Branch and 4 tablets in the evening. metoprolol 2023-0 Yes 100mg Take 4 Univ ers tartrate 25 4-24 tablets by it y of mg tablet 00:00: [place] 00 the Medical morning Branch and 4 tablets in the evening. metoprolol 2023-0 Yes 100mg Take 4 Univ ers tartrate 25 4-24 tablets by it y of mg tablet 00:00: [place] 00 the Medical morning Branch and 4 tablets in the evening. metoprolol 2023-0 Yes 100mg Take 4 Univ ers tartrate 25 4-24 tablets by it y of mg tablet 00:00: [place] 00 the Medical morning Branch and 4 tablets in the evening. metoprolol 2023-0 Yes 100mg Take 4 Univ ers tartrate 25 4-24 tablets by it y of mg tablet 00:00: [place] 00 the Medical morning Branch and 4 tablets in the evening. diphenoxyla 2022-2022- No 1{tbl} 1 tablet, Univers te-atropine 07-16 Oral, ity of (LOMOTIL) 23:00: 22:38 ONCE, 1 [place] 2.5-0.025 00 :00 dose, On Medica l mg tablet 1 Tue Branch tablet 07/16/22 at 1800, ARELI cefTRIAXone 2022-2022- No 1000mg 1,000 mg, Univers (ROCEPHIN) 07-16 IV ity of 1,000 mg in 21:15: 22:38 [place], [place] NaCl 0.9% 00 :00 ONCE, 1 Medical (NS) 100 mL dose, On Bran ch MINI-BAG 07/16/22 at 1615, Administer over 30 Minutes, 100 mL
Reas on for Anti-Infec tive: Documented Infection< br>Documen esha Infection Site: Urine<br&g t;Duration of Therapy: Other (see Comments) iopamidol 2022-0 2022- No [id number] 100mL 100 mL, Univers (ISOVUE 4-18 04-18 Intravenou ity o f 370-500 mL) 21:15: 21:15 s, ONCE, 1 [place] injection 00 :00 dose, On Medica l 100 mL Tue Branch 07/16/22 at 1615, Routine NaCl 0.9% 3-0 3- No 1000mL at 999 Uni vers (NS) bolus -18 04-18 mL/hr, ity of infusion 19:30: 22:38 1,000 mL, [place] 1,000 mL 00 :00 IV Medical Infusion, Branch ONCE, 1 dose, On 07/16/22 at 1430, STAT diphenoxyla 3-0 Yes [id number] 1{tbl} Take 1 Univers te-atropine 4-18 tablet by ity of (LOMOTIL) 00:00: mouth [place] 2.5-0.025 00 every 6 Medical mg tablet (six) Branch hours as needed (diarrhea) . cephALEXin 2023-0 Yes [id number] 500mg Take 1 Univers (KEFLEX) 4-18 capsule by ity o f 500 mg 00:00: mouth in [place] capsule 00 the Medical morning Branch and 1 capsule in the evening. diphenoxyla 2023-0 Yes [id number] 1{tbl} Take 1 Univers te-atropine 4-18 tablet by ity of (LOMOTIL) 00:00: mouth [place] 2.5-0.025 00 every 6 Medical mg tablet (six) Branch hours as needed (diarrhea) . cephALEXin 2023-0 Yes [id number] 500mg Take 1 Univers (KEFLEX) 4-18 capsule by ity o f 500 mg 00:00: mouth in [place] capsule 00 the Medical morning Branch and 1 capsule in the evening. diphenoxyla 2023-0 Yes [id number] 1{tbl} Take 1 Univers te-atropine 4-18 tablet by ity of (LOMOTIL) 00:00: mouth [place] 2.5-0.025 00 every 6 Medical mg tablet (six) Branch hours as needed (diarrhea) . cephALEXin 2023-0 Yes [id number] 500mg Take 1 Univers (KEFLEX) 4-18 capsule by ity o f 500 mg 00:00: mouth in [place] capsule the Medical morning Branch and 1 capsule in the evening. diphenoxyla 2023-0 Yes [id number] 1{tbl} Take 1 Univers te-atropine 4-18 tablet by ity of (LOMOTIL) 00:00: mouth [place] 2.5-0.025 00 every 6 Medical mg tablet (six) Branch hours as needed (diarrhea) . cephALEXin 2023-0 Yes [id number] 500mg Take 1 Univers (KEFLEX) 4-18 capsule by ity o f 500 mg 00:00: mouth in [place] capsule the Branch and 1 capsule in the evening. diphenoxyla 3-0 Yes [id number] 1{tbl} Take 1 Univers te-atropine 4-18 tablet by ity of (LOMOTIL) 00:00: mouth [place] 2.5-0.025 00 every 6 Medical mg tablet (six) Branch hours as needed (diarrhea) . cephALEXin 3-0 Yes [id number] 500mg Take 1 Univers (KEFLEX) 4-18 capsule by ity o f 500 mg 00:00: mouth in [place] capsule the Branch and 1 capsule in the evening. diphenoxyla 3-0 Yes [id number] 1{tbl} Take 1 Univers te-atropine 4-18 tablet by ity of (LOMOTIL) 00:00: mouth [place] 2.5-0.025 00 every 6 Medical mg tablet (six) Branch hours as needed (diarrhea) . cephALEXin 3-0 Yes [id number] 500mg Take 1 Univers (KEFLEX) 4-18 capsule by ity o f 500 mg 00:00: mouth in [place] capsule the Branch and 1 capsule in the evening. rivastigmin 2022-0 Yes [id number] 1{patch Apply 1 Univers e 9.5 mg/24 4-07 } Patch to ity of hour patch 00:00: [place] the morning. Branch rivastigmin 2022-0 Yes [id number] 1{patch Apply 1 Univers e 9.5 mg/24 4-07 } Patch to ity of hour patch 00:00: [place] the . Branch rivastigmin 2022-0 Yes [id number] 1{patch Apply 1 Univers e 9.5 mg/24 4-07 } Patch to ity of hour patch 00:00: [place] the . Branch rivastigmin 2022-0 Yes [id number] 1{patch Apply 1 Univers e 9.5 mg/24 4-07 } Patch to ity of hour patch 00:00: [place] 00 the Medical morning. Branch rivastigmin 2022-0 Yes [id number] 1{patch Apply 1 Univers e 9.5 mg/24 4-07 } Patch to ity of hour patch 00:00: [place] 00 the Medical morning. Branch rivastigmin 2022-0 Yes [id number] 1{patch Apply 1 Univers e 9.5 mg/24 4-07 } Patch to ity of hour patch 00:00: [place] 00 the Medical morning. Branch rivastigmin 2022-0 Yes [id number] 1{patch Apply 1 Univers e 9.5 mg/24 4-07 } Patch to ity of hour patch 00:00: [place] 00 the Medical morning. Branch rivastigmin 2022-0 Yes [id number] 1{patch Apply 1 Univers e 9.5 mg/24 4-07 } Patch to ity of hour patch 00:00: [place] 00 the Medical morning. Branch rivastigmin 2022-2022- No [id number] 1{patch Apply 1 Univers e 9.5 mg/24 4-07 05-12 } Patch to ity of hour patch 00:00: 00:00 skin in [place] :00 the Medical morning. Branch ciprofloxac 2022-0 2022- Yes [id number] 500mg Take 1 Univers in HCl 3-20 03-28 tablet by ity of (CIPRO) 500 00:00: 04:59 [place] mg tablet 00 :00 every 24 Medica l (twenty-fo Branch ur) hours for 7 days. Cholecalcif 2022-0 Yes 1000U Take 1 Uni vers stevan, 3-16 capsule by ity of Vitamin D3, 10:19: mouth [place] 25 mcg 39 the Medical (1,000 morning. Branch unit) capsule metoprolol 2022-0 Yes 100mg Take 4 Univ ers tartrate 25 3-16 tablets by it y of mg tablet 10:19: [place] 39 the Medical morning Branch and 4 tablets in the evening. B Complex 2023-0 Yes Take by Unive rs Vitamins 3-16 mouth. ity of tablet 10:19: [address] Branch Cholecalcif 3-0 Yes 1000U Take 1 Uni vers stevan, 3-16 capsule by ity of Vitamin D3, 10:19: mouth in [place] 25 mcg 39 the Medical (,000 morning. Branch unit) capsule metoprolol 3-0 Yes 100mg Take 4 Univ ers tartrate 25 3-16 tablets by it y of mg tablet 10:19: mouth [place] the Medical morning Branch and 4 tablets in the evening. B Complex 3-0 Yes Take by Unive rs Vitamins 3-16 mouth. ity of tablet 10:19: [address] Branch Cholecalcif 3-0 Yes 1000U Take 1 Uni vers stevan, 3-16 capsule by ity of Vitamin D3, 10:19: mouth in [place] 25 mcg 39 the Medical (,000 morning. Branch unit) capsule metoprolol 3-0 Yes 100mg Take 4 Univ ers tartrate 25 3-16 tablets by it y of mg tablet 10:19: [place] the Medical morning Branch and 4 tablets in the evening. B Complex 3-0 Yes Take by Unive rs Vitamins 3-16 mouth. ity of tablet 10:19: [address] Branch Cholecalcif 3-0 Yes 1000U Take 1 Uni vers stevan, 3-16 capsule by ity of Vitamin D3, 10:19: mouth in [place] 25 mcg 39 the Medical (,000 morning. Branch unit) capsule metoprolol 3-0 Yes 100mg Take 4 Univ ers tartrate 25 3-16 tablets by it y of mg tablet 10:19: [place] 39 the Medical morning Branch and 4 tablets in the evening. B Complex 3-0 Yes Take by Unive rs Vitamins 3-16 mouth. ity of tablet 10:19: [address] Branch Cholecalcif 3-0 Yes 1000U Take 1 Uni vers stevan, 3-16 capsule by ity of Vitamin D3, 10:19: mouth in [place] 25 mcg 39 the Medical (,000 morning. Branch unit) capsule metoprolol 2023-0 Yes 100mg Take 4 Univ ers tartrate 25 3-16 tablets by it y of mg tablet 10:19: [place] 39 the Medical morning Branch and 4 tablets in the evening. B Complex 3-0 Yes Take by Unive rs Vitamins 3-16 mouth. ity of tablet 10:19: [address] Branch Cholecalcif 3-0 Yes 1000U Take [...] Vitamins 3-16 mouth. ity of tablet 10:19: [address] Branch Cholecalcif 3-0 Yes 1000U Take 1 Uni vers stevan, 3-16 capsule by ity of Vitamin D3, 10:19: mouth in [place] 25 mcg 39 the Medical ( morning. Branch unit) capsule metoprolol 3-0 Yes 100mg Take 4 Univ ers tartrate 25 3-16 tablets by it y of mg tablet 10:19: [place] the Medical morning Branch and 4 tablets in the evening. B Complex 3-0 Yes Take by Unive rs Vitamins 3-16 mouth. ity of tablet 10:19: [address] Branch Cholecalcif 3-0 Yes 1000U Take [...] Vitamins 3-16 mouth. ity of tablet 10:19: [address] Branch Cholecalcif 2023-0 Yes 1000U Take 1 Uni vers stevan, 3-16 capsule by ity of Vitamin D3, 10:19: mouth [place] 25 mcg 39 the Medical ( morning. Branch unit) capsule metoprolol 2023-0 Yes 100mg Take 4 Univ ers tartrate 25 3-16 tablets by it y of mg tablet 10:19: mouth in [place] [address] the Medical morning Branch and 4 tablets in the evening. B Complex 3-0 Yes Take by Unive rs Vitamins 3-16 mouth. ity of tablet 10:19: [address] Branch Cholecalcif 2023-0 Yes 1000U Take 1 Uni vers stevan, 3-16 capsule by ity of Vitamin D3, 10:19: mouth in [place] 25 mcg 39 the Medical (000 morning. Branch unit) capsule metoprolol 3-0 Yes 100mg Take 4 Univ ers tartrate 25 3-16 tablets by it y of mg tablet 10:19: mouth in [place] [address] the Medical morning Branch and 4 tablets in the evening. B Complex 3-0 Yes Take by Unive rs Vitamins 3-16 mouth. ity of tablet 10:19: [address] Branch Cholecalcif 3-0 Yes 1000U Take 1 Uni vers stevan, 3-16 capsule by ity of Vitamin D3, 10:19: mouth in [place] 25 mcg 39 the Medical (000 morning. Branch unit) capsule metoprolol 3-0 Yes 100mg Take 4 Univ ers tartrate 25 3-16 tablets by it y of mg tablet 10:19: mouth in [place] [address] the Medical morning Branch and 4 tablets in the evening. B Complex 3-0 Yes Take by Unive rs Vitamins 3-16 mouth. ity of tablet 10:19: [address] Branch Cholecalcif 2023-0 Yes 1000U Take 1 Uni vers stevan, 3-16 capsule by ity of Vitamin D3, 10:19: mouth in [place] 25 mcg 39 the Medical (000 morning. Branch unit) capsule B Complex 3-0 Yes Take by Unive rs Vitamins 3-16 mouth. ity of tablet 10:19: [address] Branch Cholecalcif 2023-0 Yes 1000U Take 1 Uni vers stevan, 3-16 capsule by ity of Vitamin D3, 10:19: mouth in [place] 25 mcg 39 the Medical (,000 morning. Branch unit) capsule B Complex 2023-0 Yes Take by Unive rs Vitamins 3-16 mouth. ity of tablet 10:19: [address] Branch Cholecalcif 2023-0 Yes 1000U Take 1 Uni vers stevan, 3-16 capsule by ity of Vitamin D3, 10:19: mouth in [place] 25 mcg 39 the Medical (1,000 morning. Branch unit) capsule B [facility] 3-[facility] mouth. ity of tablet 10:19: [address] Cholecalcif 3-0 Yes 1000U Take 1 Uni vers stevan, 3-16 capsule by ity of Vitamin D3, 10:19: mouth in [place] 25 mcg 39 the Medical (1,000 morning. Branch unit) capsule B Complex 3-0 Yes Take by [facility] Vit[facility] 3-16 mouth. ity of tablet 10:19: [address] Cholecalcif 2022-0 Yes 1000U Take 1 Uni vers stevan, 3-16 capsule by ity of Vitamin D3, 10:19: mouth in [place] 25 mcg 39 the Medical (1,000 morning. Branch unit) capsule B Complex 3-0 Yes Take by [facility] 3-16 mouth. ity of tablet 10:19: [address] rivastigmin 2022-0 2022- Yes [id number] 1{patch Apply 1 Univers e 4.6 mg/24 3-07 04-07 } Patch to ity of hour patch 00:00: 04:59 skin in [place] 00 :00 the [facility] for 30 days. rivastigmin 2022-0 2022- Yes [id number] 1{patch Apply 1 Univers e 4.6 mg/24 3-07 04-07 } Patch to ity of hour patch 00:00: 04:59 skin in [place] 00 :00 the [facility] for 30 days. rivastigmin 2022-0 2022- Yes [id number] 1{patch Apply 1 Univers e 4.6 mg/24 3-07 04-07 } Patch to ity of hour patch 00:00: 04:59 skin in [place] 00 :00 the [facility] for 30 days. rivastigmin 2022-0 2022- Yes [id number] 1{patch Apply 1 Univers e 4.6 mg/24 3-07 04-07 } Patch to ity of hour patch 00:00: 04:59 skin in [place] 00 :00 the [facility] for 30 days. rivastigmin 2022- Yes [id number] 1{patch Apply 1 Univers e 4.6 mg/24 3- 04-07 } Patch to ity of hour patch 00:00: 04:59 skin in [place] 00 :00 the [facility] for 30 days. rivastigmin 2022- Yes [id number] 1{patch Apply 1 Univers e 4.6 mg/24 - 04-07 } Patch to ity of hour patch 00:00: 04:59 skin in [place] 00 :00 the [facility] for 30 days. rivastigmin 2022- Yes [id number] 1{patch Apply 1 Univers e 4.6 mg/24 -10 01-07 } Patch to ity of hour patch 00:00: 04:59 skin in [place] as 00 :00 the [facility] for 30 days. rivastigmin 2022- Yes [id number] 1{patch Apply 1 [facility] e 4.6 mg/24 06-04-07 } Patch to ity of hour patch 00:00: 04:59 skin in [place] as 00 :00 the [facility] for 30 days. rivastigmin 2022- Yes [id number] 1{patch Apply 1 [facility] e 4.6 mg/24 06-04-07 } Patch to ity of hour patch 00:00: 04:59 skin in [place] 00 :00 the [facility] for 30 days. rivastigmin 2022- Yes [id number] 1{patch Apply 1 [facility] e 4.6 mg/24 06-04-07 } Patch to ity of hour patch 00:00: 04:59 skin in [place] 00 :00 the [facility] for 30 days. rivastigmin 2022- Yes [id number] 1{patch Apply 1 [facility] e 4.6 mg/24 06-04-07 } Patch to ity of hour patch 00:00: 04:59 skin in [place] as 00 :00 the [facility] for 30 days. donepeziL 2022- No [id number] 10mg Take 1 U nivers 10 mg 06-04 tablet by ity of tablet 00:00: 00:00 mouth at [place] 00 :00 bedtime. Medical Branch donepeziL 2022- No [id number] 10mg Take 1 U nivers 10 mg 06-04 tablet by ity of tablet 00:00: 00:00 mouth at [place] 00 :00 bedtime. Medical Branch diphenhydrA 0 2022- No 25mg Take 25 mg [facility] MINE 25 mg 05-29 by mouth ity of capsule 16:57: 00:00 every 6 [place] 49 :00 (six) Medical hours as Branch needed for Allergies. haloperidoL 0 Yes [id number] .5mg Take 1 [facility] 0.5 mg 3-01 tablet by ity of tablet 00:00: mouth at [place] 00 bedtime as Medical needed for Branch Pain (scale 1-3) (AGITATION AND SUNDOWING) . potassium 2022-0 Yes [id number] 10meq Take 1 U nivers chloride 10 3-01 tablet by ity of mEq CR 00:00: mouth in [place] tablet 00 the Medical morning. Branch haloperidoL 2022-0 Yes [id number] .5mg Take 1 [facility] 0.5 mg 3-01 tablet by ity of tablet 00:00: mouth at [place] 00 bedtime as Medical needed for Branch Pain (scale 1-3) (AGITATION AND SUNDOWING) . potassium 2022-0 Yes [id number] 10meq Take 1 U nivers chloride 10 3-01 tablet by ity of mEq CR 00:00: mouth in [place] tablet 00 the Medical morning. Branch haloperidoL 0 Yes [id number] .5mg Take 1 [facility] 0.5 mg 3-01 tablet by ity of tablet 00:00: mouth at [place] 00 bedtime as Medical needed for Branch Pain (scale 1-3) (AGITATION AND SUNDOWING) . potassium 2022-0 Yes [id number] 10meq Take 1 [facility] nivers chloride 10 3-01 tablet by ity of mEq CR 00:00: mouth in [place] tablet 00 the Medical morning. Branch haloperidoL 2022-0 Yes [id number] .5mg Take 1 [facility] 0.5 mg 3-01 tablet by ity of tablet 00:00: mouth at [place] 00 bedtime as Medical needed for Branch Pain (scale 1-3) (AGITATION AND SUNDOWING) . potassium 2022-0 Yes [id number] 10meq Take 1 [facility] nivers chloride 10 3-01 tablet by ity of mEq CR 00:00: mouth in [place] tablet 00 the Medical morning. Branch haloperidoL 2023-0 Yes [id number] .5mg Take 1 [facility] 0.5 mg 3-01 tablet by ity of tablet 00:00: mouth at [place] 00 bedtime as Medical needed for Branch Pain (scale 1-3) (AGITATION AND SUNDOWING) . potassium 2023-0 Yes [id number] 10meq Take 1 [facility] nivers chloride 10 3-01 tablet by ity of mEq CR 00:00: mouth in [place] tablet 00 the Medical morning. Branch haloperidoL 2023-0 Yes [id number] .5mg Take 1 [facility] 0.5 mg 3-01 tablet by ity of tablet 00:00: mouth at [place] 00 bedtime as Medical needed for Branch Pain (scale 1-3) (AGITATION AND SUNDOWING) . potassium 2023-0 Yes [id number] 10meq Take 1 [facility] nivers chloride 10 3-01 tablet by ity of mEq CR 00:00: mouth in [place] tablet 00 the Medical morning. Branch haloperidoL 2023-0 Yes [id number] .5mg Take 1 [facility] 0.5 mg 3-01 tablet by ity of tablet 00:00: mouth at [place] 00 bedtime as Medical needed for Branch Pain (scale 1-3) (AGITATION AND SUNDOWING) . potassium 2023-0 Yes [id number] 10meq Take 1 [facility] nivers chloride 10 3-01 tablet by ity of mEq CR 00:00: mouth in [place] tablet 00 the Medical morning. Branch haloperidoL 2023-0 Yes [id number] .5mg Take 1 [facility] 0.5 mg 3-01 tablet by ity of tablet 00:00: mouth at [place] 00 bedtime as Medical needed for Branch Pain (scale 1-3) (AGITATION AND SUNDOWING) . potassium 2023-0 Yes [id number] 10meq Take 1 [facility] nivers chloride 10 3-01 tablet by ity of mEq CR 00:00: mouth in [place] tablet 00 the Medical morning. Branch haloperidoL 2023-0 Yes [id number] .5mg Take 1 [facility] 0.5 mg 3-01 tablet by ity of tablet 00:00: mouth at [place] 00 bedtime as Medical needed for Branch Pain (scale 1-3) (AGITATION AND SUNDOWING) . potassium 2023-0 Yes [id number] 10meq Take 1 [facility] nivers chloride 10 3-01 tablet by ity of mEq CR 00:00: mouth in [place] tablet 00 the Medical morning. Branch haloperidoL 2023-0 Yes [id number] .5mg Take 1 [facility] 0.5 mg 3-01 tablet by ity of tablet 00:00: mouth at [place] 00 bedtime as Medical needed for Branch Pain (scale 1-3) (AGITATION AND SUNDOWING) . potassium 2023-0 Yes [id number] 10meq Take 1 [facility] nivers chloride 10 3-01 tablet by ity of mEq CR 00:00: mouth in [place] tablet 00 the Medical morning. Branch haloperidoL 2023-0 Yes [id number] .5mg Take 1 [facility] 0.5 mg 3-01 tablet by ity of tablet 00:00: mouth at [place] 00 bedtime as Medical needed for Branch Pain (scale 1-3) (AGITATION AND SUNDOWING) . potassium 2023-0 Yes [id number] 10meq Take 1 [facility] nivers chloride 10 3-01 tablet by ity of mEq CR 00:00: mouth in [place] tablet 00 the Medical morning. Branch haloperidoL 2023-0 Yes [id number] .5mg Take 1 [facility] 0.5 mg 3-01 tablet by ity of tablet 00:00: mouth at [place] 00 bedtime as Medical needed for Branch Pain (scale 1-3) (AGITATION AND SUNDOWING) . potassium 2023-0 Yes [id number] 10meq Take 1 [facility] nivers chloride 10 3-01 tablet by ity of mEq CR 00:00: mouth in [place] tablet 00 the Medical morning. Branch haloperidoL 2023-0 Yes [id number] .5mg Take 1 [facility] 0.5 mg 3-01 tablet by ity of tablet 00:00: mouth at [place] 00 bedtime as Medical needed for Branch Pain (scale 1-3) (AGITATION AND SUNDOWING) . potassium 2023-0 Yes [id number] 10meq Take 1 [facility] nivers chloride 10 3-01 tablet by ity of mEq CR 00:00: mouth in [place] tablet 00 the Medical morning. Branch haloperidoL 2023-0 Yes [id number] .5mg Take 1 [facility] 0.5 mg 3-01 tablet by ity of tablet 00:00: mouth at [place] 00 bedtime as Medical needed for Branch Pain (scale 1-3) (AGITATION AND SUNDOWING) . potassium 2023-0 Yes [id number] 10meq Take 1 [facility] nivers chloride 10 3-01 tablet by ity of mEq CR 00:00: mouth in [place] tablet 00 the Medical morning. Branch haloperidoL 2023-0 Yes [id number] .5mg Take 1 [facility] 0.5 mg 3-01 tablet by ity of tablet 00:00: mouth at [place] 00 bedtime as Medical needed for Branch Pain (scale 1-3) (AGITATION AND SUNDOWING) . potassium 2023-0 Yes [id number] 10meq Take 1 [facility] nivers chloride 10 3-01 tablet by ity of mEq CR 00:00: mouth in [place] tablet 00 the Medical morning. Branch haloperidoL 2023-0 Yes [id number] .5mg Take 1 [facility] 0.5 mg 3-01 tablet by ity of tablet 00:00: mouth at [place] 00 bedtime as Medical needed for Branch Pain (scale 1-3) (AGITATION AND SUNDOWING) . potassium 2023-0 Yes [id number] 10meq Take 1 [facility] nivers chloride 10 3-01 tablet by ity of mEq CR 00:00: mouth in [place] tablet 00 the Medical morning. Branch haloperidoL 2023-0 Yes [id number] .5mg Take 1 [facility] 0.5 mg 3-01 tablet by ity of tablet 00:00: mouth at [place] 00 bedtime as Medical needed for Branch Pain (scale 1-3) (AGITATION AND SUNDOWING) . potassium 3-0 Yes [id number] 10meq Take 1 [facility] nivers chloride 10 3-01 tablet by ity of mEq CR 00:00: mouth in [place] tablet 00 the Medical morning. Branch haloperidoL 2023-0 Yes [id number] .5mg Take 1 [facility] 0.5 mg 3-01 tablet by ity of tablet 00:00: mouth at [place] 00 bedtime as Medical needed for Branch Pain (scale 1-3) (AGITATION AND SUNDOWING) . potassium 2023-0 Yes [id number] 10meq Take 1 [facility] nivers chloride 10 3-01 tablet by ity of mEq CR 00:00: mouth in [place] tablet 00 the Medical morning. Branch haloperidoL 2023-0 Yes [id number] .5mg Take 1 [facility] 0.5 mg 3-01 tablet by ity of tablet 00:00: mouth at [place] 00 bedtime as Medical needed for Branch Pain (scale 1-3) (AGITATION AND SUNDOWING) . potassium 2023-0 Yes [id number] 10meq Take 1 [facility] nivers chloride 10 3-01 tablet by ity of mEq CR 00:00: mouth in [place] tablet 00 the Medical morning. Branch haloperidoL 2022-0 Yes [id number] .5mg Take 1 [facility] 0.5 mg 3-01 tablet by ity of tablet 00:00: mouth at [place] 00 bedtime as Medical needed for Branch Pain (scale 1-3) (AGITATION AND SUNDOWING) . potassium 2022-0 Yes [id number] 10meq Take 1 [facility] nivers chloride 10 3-01 tablet by ity of mEq CR 00:00: mouth in [place] tablet 00 the Medical morning. Branch haloperidoL 0 Yes [id number] .5mg Take 1 [facility] 0.5 mg 3-01 tablet by ity of tablet 00:00: mouth at [place] 00 bedtime as Medical needed for Branch Pain (scale 1-3) (AGITATION AND SUNDOWING) . potassium 2022-0 Yes [id number] 10meq Take 1 [facility] nivers chloride 10 3-01 tablet by ity of mEq CR 00:00: mouth in [place] tablet 00 the Medical morning. Branch atorvastati 2022- No 40mg Take 40 mg [facility] n (LIPITOR) 05-21 by mouth ity of 40 mg 15:41: 00:00 at [place] tablet 46 :00 bedtime. Medical Branch citalopram 2022- No 20mg Take 20 mg [facility] 20 mg 05-21 by mouth ity of tablet 15:41: 00:00 in the [place] 46 :00 morning. Medical Branch donepeziL 5 2022- No 5mg Take 5 mg [facility] mg tablet 05-21 by mouth ity o f 15:41: 00:00 at [place] 46 :00 bedtime. Medical Branch atorvastati 2022- No 40mg Take 40 mg [facility] n (LIPITOR) 05-21- by mouth ity of 40 mg 15:41: 00:00 at [place] tablet 46 :00 bedtime. Medical Branch citalopram 2022- No 20mg Take 20 mg [facility] 20 mg 05-21 by mouth ity of tablet 15:41: 00:00 in the [place] 46 :00 morning. Medical Branch donepeziL 5 2022- No 5mg Take 5 mg [facility] mg tablet 05-21 by mouth ity o f 15:41: 00:00 at [place] 46 :00 bedtime. Medical Branch alfuzosin 2022- No 10mg Take 10 mg [facility] nivers 10 mg 24 hr 05-21- by mouth ity of tablet 15:37: 00:00 at [place] 26 :00 bedtime. Medical Branch alfuzosin 2022- No 10mg Take 10 mg [facility] nivers 10 mg 24 hr 05-21- by mouth ity of tablet 15:37: 00:00 at [place] 26 :00 bedtime. Medical Branch nitrofurant 2022- No 100mg Take 100 [facility] oin 100 mg 2-21 05-21 mg by ity of capsule 15:32: 00:00 mouth at [place] 04 :00 bedtime. Medical Branch nitrofurant 2022-2022- No 100mg Take 100 [facility] oin 100 mg -21 05- mg by ity of capsule 15:32: 00:00 mouth at [place] 04 :00 bedtime. Medical Branch pantoprazol 2022- No 40mg Take 40 mg [facility] e 40 mg EC 05-21- by mouth 2 it y of tablet 15:31: 00:00 (two) [place] 58 :00 times Medical daily. Branch pantoprazol 2022- No 40mg Take 40 mg [facility] e 40 mg EC 05-21- by mouth 2 it y of tablet 15:31: 00:00 (two) [place] 58 :00 times Medical daily. Branch mirtazapine 2022-0 Yes [id number] 15mg Take 1 [facility] 15 mg 2-21 tablet by ity of tablet 00:00: mouth at [place] [address] bedtime. Medical Branch levothyroxi 2022-0 Yes [id number] 100ug Take 1 [facility] ne 100 mcg 2-21 tablet by ity of tablet 00:00: mouth [place] [address] every Medical morning. Branch citalopram Yes [id number] 20mg Take 1 [facility] 20 mg 2-21 tablet by ity of tablet 00:00: mouth in [place] 00 the Medical morning. Branch carbidopa-l 2022-0 Yes [id number] TAKE 1 [facility] evodopa 2-21 TABLET BY ity of 25-100 mg 00:00: MOUTH FOUR [place] tablet 00 TIMES A Medical DAY Branch atorvastati Yes [id number] 40mg Take 1 [facility] n 40 mg 2-21 tablet by ity of tablet 00:00: mouth at [place] [address] bedtime. Medical Branch Diclofenac 2022-0 Yes [id number] Apply to [facility] Sodium 2-21 103 area(s) 4 ity of (VOLTAREN) 00:00: (four) [place] 1 % gel 00 times Medical daily. Branch Apply 4 g qid Lidocaine 5 2022- Yes [id number] Apply to [facility] % cream 2-21 103 area(s) 2 ity of 00:00: (two) [place] 00 times Medical daily as Branch needed for Pain (scale 4-6). Apply 5g to affected areas BID PRN mirtazapine 0 Yes [id number] 15mg Take 1 [facility] 15 mg 2-21 tablet by ity of tablet 00:00: mouth at [place] [address] bedtime. Medical Branch levothyroxi 0 Yes [id number] 100ug Take 1 [facility] ne 100 mcg 2-21 tablet by ity of tablet 00:00: mouth [place] 00 every Medical morning. Branch citalopram 0 Yes [id number] 20mg Take 1 [facility] 20 mg 2-21 tablet by ity of tablet 00:00: mouth in [place] 00 the Medical morning. Branch carbidopa-l 2022-0 Yes [id number] TAKE 1 [facility] evodopa 2-21 TABLET BY ity of 25-100 mg 00:00: MOUTH FOUR [place] tablet 00 TIMES A Medical DAY Branch atorvastati 2022-0 Yes [id number] 40mg Take 1 [facility] n 40 mg 2-21 tablet by ity of tablet 00:00: mouth at [place] [address] bedtime. Medical Branch Diclofenac 2022-0 Yes [id number] Apply to [facility] Sodium 2-21 103 area(s) 4 ity of (VOLTAREN) 00:00: (four) [place] 1 % gel 00 times Medical daily. Branch Apply 4 g qid Lidocaine 5 2022-0 Yes [id number] Apply to [facility] % cream 2-21 103 area(s) 2 ity of 00:00: (two) [place] 00 times Medical daily as Branch needed for Pain (scale 4-6). Apply 5g to affected areas BID PRN mirtazapine Yes [id number] 15mg Take 1 [facility] 15 mg 2-21 tablet by ity of tablet 00:00: mouth at [place] [address] bedtime. Medical Branch levothyroxi 2022-0 Yes [id number] 100ug Take 1 [facility] ne 100 mcg 2-21 tablet by ity of tablet 00:00: mouth [place] 00 every Medical morning. Branch citalopram 2022-0 Yes [id number] 20mg Take 1 [facility] 20 mg 2-21 tablet by ity of tablet 00:00: mouth in [place] 00 the Medical morning. Branch carbidopa-l 2022-0 Yes [id number] TAKE 1 [facility] evodopa 2-21 TABLET BY ity of 25-100 mg 00:00: MOUTH FOUR [place] tablet 00 TIMES A Medical DAY Branch atorvastati 0 Yes [id number] 40mg Take 1 [facility] n 40 mg 2-21 tablet by ity of tablet 00:00: mouth at [place] [address] bedtime. Medical Branch Diclofenac Yes [id number] Apply to [facility] Sodium 2-21 103 area(s) 4 ity of (VOLTAREN) 00:00: (four) [place] 1 % gel 00 times Medical daily. Branch Apply 4 g qid Lidocaine 5 Yes [id number] Apply to [facility] % cream 2-21 103 area(s) 2 ity of 00:00: (two) [place] 00 times Medical daily as Branch needed for Pain (scale 4-6). Apply 5g to affected areas BID PRN mirtazapine Yes [id number] 15mg Take 1 [facility] 15 mg 2-21 tablet by ity of tablet 00:00: mouth at [place] [address] bedtime. Medical Branch levothyroxi 2022-0 Yes [id number] 100ug Take 1 [facility] ne 100 mcg 2-21 tablet by ity of tablet 00:00: mouth [place] [address] every Medical morning. Branch citalopram 2022-0 Yes [id number] 20mg Take 1 [facility] 20 mg 2-21 tablet by ity of tablet 00:00: mouth in [place] 00 the Medical morning. Branch carbidopa-l 2022-0 Yes [id number] TAKE 1 [facility] evodopa 2-21 TABLET BY ity of 25-100 mg 00:00: MOUTH FOUR [place] tablet 00 TIMES A Medical DAY Branch atorvastati Yes [id number] 40mg Take 1 [facility] n 40 mg 2-21 tablet by ity of tablet 00:00: mouth at [place] [address] bedtime. Medical Branch Diclofenac 2022- Yes [id number] Apply to [facility] Sodium 2-21 103 area(s) 4 ity of (VOLTAREN) 00:00: (four) [place] 1 % gel 00 times Medical daily. Branch Apply 4 g qid Lidocaine 5 2022- Yes [id number] Apply to [facility] % cream 2-21 103 area(s) 2 ity of 00:00: (two) [place] 00 times Medical daily as Branch needed for Pain (scale 4-6). Apply 5g to affected areas BID PRN mirtazapine Yes [id number] 15mg Take 1 [facility] 15 mg 2-21 tablet by ity of tablet 00:00: mouth at [place] [address] bedtime. Medical Branch levothyroxi 0 Yes [id number] 100ug Take 1 [facility] ne 100 mcg 2-21 tablet by ity of tablet 00:00: mouth [place] 00 every Medical morning. Branch citalopram Yes [id number] 20mg Take 1 [facility] 20 mg 2-21 tablet by ity of tablet 00:00: mouth in [place] 00 the Medical morning. Branch carbidopa-l 0 Yes [id number] TAKE 1 [facility] evodopa 2-21 TABLET BY ity of 25-100 mg 00:00: MOUTH FOUR [place] tablet 00 TIMES A Medical DAY Branch atorvastati 0 Yes [id number] 40mg Take 1 [facility] n 40 mg 2-21 tablet by ity of tablet 00:00: mouth at [place] [address] bedtime. Medical Branch Diclofenac Yes [id number] Apply to [facility] Sodium 2-21 103 area(s) 4 ity of (VOLTAREN) 00:00: (four) [place] 1 % gel 00 times Medical daily. Branch Apply 4 g qid Lidocaine 5 2022-0 Yes [id number] Apply to [facility] % cream 2-21 103 area(s) 2 ity of 00:00: (two) [place] 00 times Medical daily as Branch needed for Pain (scale 4-6). Apply 5g to affected areas BID PRN mirtazapine 2023-0 Yes [id number] 15mg Take 1 [facility] 15 mg 2-21 tablet by ity of tablet 00:00: mouth at [place] [address] bedtime. Medical Branch levothyroxi 2022-0 Yes [id number] 100ug Take 1 [facility] ne 100 mcg 2-21 tablet by ity of tablet 00:00: mouth [place] 00 every Medical morning. Branch citalopram 2022-0 Yes [id number] 20mg Take 1 [facility] 20 mg 2-21 tablet by ity of tablet 00:00: mouth in [place] 00 the Medical morning. Branch carbidopa-l 2022-0 Yes [id number] TAKE 1 [facility] evodopa 2-21 TABLET BY ity of 25-100 mg 00:00: MOUTH FOUR [place] tablet 00 TIMES A Medical DAY Branch atorvastati 2022-0 Yes [id number] 40mg Take 1 [facility] n 40 mg 2-21 tablet by ity of tablet 00:00: mouth at [place] [address] bedtime. Medical Branch Diclofenac Yes [id number] Apply to [facility] Sodium 2-21 103 area(s) 4 ity of (VOLTAREN) 00:00: (four) [place] 1 % gel 00 times Medical daily. Branch Apply 4 g qid Lidocaine 5 Yes [id number] Apply to [facility] % cream 2-21 103 area(s) 2 ity of 00:00: (two) [place] 00 times Medical daily as Branch needed for Pain (scale 4-6). Apply 5g to affected areas BID PRN mirtazapine 0 Yes [id number] 15mg Take 1 [facility] 15 mg 2-21 tablet by ity of tablet 00:00: mouth at [place] [address] bedtime. Medical Branch levothyroxi 2022-0 Yes [id number] 100ug Take 1 [facility] ne 100 mcg 2-21 tablet by ity of tablet 00:00: mouth [place] [address] every Medical morning. Branch citalopram 2022-0 Yes [id number] 20mg Take 1 [facility] 20 mg 2-21 tablet by ity of tablet 00:00: mouth in [place] 00 the Medical morning. Branch carbidopa-l 2022-0 Yes [id number] TAKE 1 [facility] evodopa 2-21 TABLET BY ity of 25-100 mg 00:00: MOUTH FOUR [place] tablet 00 TIMES A Medical DAY Branch atorvastati 2023-0 Yes [id number] 40mg Take 1 [facility] n 40 mg 2-21 tablet by ity of tablet 00:00: mouth at [place] 00 bedtime. Medical Branch Diclofenac 2022-0 Yes [id number] Apply to [facility] Sodium 2-21 103 area(s) 4 ity of (VOLTAREN) 00:00: (four) [place] 1 % gel 00 times Medical daily. Branch Apply 4 g qid Lidocaine 5 2022-0 Yes [id number] Apply to [facility] % cream 2-21 103 area(s) 2 ity of 00:00: (two) [place] 00 times Medical daily as Branch needed for Pain (scale 4-6). Apply 5g to affected areas BID PRN mirtazapine 2022-0 Yes [id number] 15mg Take 1 [facility] 15 mg 2-21 tablet by ity of tablet 00:00: mouth at [place] 00 bedtime. Medical Branch levothyroxi 2022-0 Yes [id number] 100ug Take 1 [facility] ne 100 mcg 2-21 tablet by ity of tablet 00:00: mouth [place] 00 every Medical morning. Branch citalopram Yes [id number] 20mg Take 1 [facility] 20 mg 2-21 tablet by ity of tablet 00:00: mouth in [place] 00 the Medical morning. Branch carbidopa-l 2022-0 Yes [id number] TAKE 1 [facility] evodopa 2-21 TABLET BY ity of 25-100 mg 00:00: MOUTH FOUR [place] tablet 00 TIMES A Medical DAY Branch atorvastati 2022-0 Yes [id number] 40mg Take 1 [facility] n 40 mg 2-21 tablet by ity of tablet 00:00: mouth at [place] 00 bedtime. Medical Branch Diclofenac 2022-0 Yes [id number] Apply to [facility] Sodium 2-21 103 area(s) 4 ity of (VOLTAREN) 00:00: (four) [place] 1 % gel 00 times Medical daily. Branch Apply 4 g qid Lidocaine 5 2022-0 Yes [id number] Apply to [facility] % cream 2-21 103 area(s) 2 ity of 00:00: (two) [place] 00 times Medical daily as Branch needed for Pain (scale 4-6). Apply 5g to affected areas BID PRN mirtazapine 2022-0 Yes [id number] 15mg Take 1 [facility] 15 mg 2-21 tablet by ity of tablet 00:00: mouth at [place] [address] bedtime. Medical Branch levothyroxi Yes [id number] 100ug Take 1 [facility] ne 100 mcg 2-21 tablet by ity of tablet 00:00: mouth [place] 00 every Medical morning. Branch citalopram 2022-0 Yes [id number] 20mg Take 1 [facility] 20 mg 2-21 tablet by ity of tablet 00:00: mouth in [place] 00 the Medical morning. Branch carbidopa-l 2022-0 Yes [id number] TAKE 1 [facility] evodopa 2-21 TABLET BY ity of 25-100 mg 00:00: MOUTH FOUR [place] tablet 00 TIMES A Medical DAY Branch atorvastati Yes [id number] 40mg Take 1 [facility] n 40 mg 2-21 tablet by ity of tablet 00:00: mouth at [place] [address] bedtime. Medical Branch Diclofenac Yes [id number] Apply to [facility] Sodium 2-21 103 area(s) 4 ity of (VOLTAREN) 00:00: (four) [place] 1 % gel 00 times Medical daily. Branch Apply 4 g qid Lidocaine 5 Yes [id number] Apply to [facility] % cream 2-21 103 area(s) 2 ity of 00:00: (two) [place] 00 times Medical daily as Branch needed for Pain (scale 4-6). Apply 5g to affected areas BID PRN mirtazapine Yes [id number] 15mg Take 1 [facility] 15 mg 2-21 tablet by ity of tablet 00:00: mouth at [place] [address] bedtime. Medical Branch levothyroxi Yes [id number] 100ug Take 1 [facility] ne 100 mcg 2-21 tablet by ity of tablet 00:00: mouth [place] 00 every Medical morning. Branch citalopram 2022-0 Yes [id number] 20mg Take 1 [facility] 20 mg 2-21 tablet by ity of tablet 00:00: mouth in [place] 00 the Medical morning. Branch carbidopa-l 2022-0 Yes [id number] TAKE 1 [facility] evodopa 2-21 TABLET BY ity of 25-100 mg 00:00: MOUTH FOUR [place] tablet 00 TIMES A Medical DAY Branch atorvastati 2022-0 Yes [id number] 40mg Take 1 [facility] n 40 mg 2-21 tablet by ity of tablet 00:00: mouth at [place] 00 bedtime. Medical Branch Diclofenac 2022-0 Yes [id number] Apply to [facility] Sodium 2-21 103 area(s) 4 ity of (VOLTAREN) 00:00: (four) [place] 1 % gel 00 times Medical daily. Branch Apply 4 g qid Lidocaine 5 2022-0 Yes [id number] Apply to [facility] % cream 2-21 103 area(s) 2 ity of 00:00: (two) [place] 00 times Medical daily as Branch needed for Pain (scale 4-6). Apply 5g to affected areas BID PRN mirtazapine 2022-0 Yes [id number] 15mg Take 1 [facility] 15 mg 2-21 tablet by ity of tablet 00:00: mouth at [place] 00 bedtime. Medical Branch levothyroxi 2022-0 Yes [id number] 100ug Take 1 [facility] ne 100 mcg 2-21 tablet by ity of tablet 00:00: mouth [place] 00 every Medical morning. Branch citalopram 2022-0 Yes [id number] 20mg Take 1 [facility] 20 mg 2-21 tablet by ity of tablet 00:00: mouth in [place] 00 the Medical morning. Branch carbidopa-l 2022-0 Yes [id number] TAKE 1 [facility] evodopa 2-21 TABLET BY ity of 25-100 mg 00:00: MOUTH FOUR [place] tablet 00 TIMES A Medical DAY Branch atorvastati 2022-0 Yes [id number] 40mg Take 1 [facility] n 40 mg 2-21 tablet by ity of tablet 00:00: mouth at [place] 00 bedtime. Medical Branch Diclofenac 2022-0 Yes [id number] Apply to [facility] Sodium 2-21 103 area(s) 4 ity of (VOLTAREN) 00:00: (four) [place] 1 % gel 00 times Medical daily. Branch Apply 4 g qid Lidocaine 5 2022-0 Yes [id number] Apply to [facility] % cream 2-21 103 area(s) 2 ity of 00:00: (two) [place] 00 times Medical daily as Branch needed for Pain (scale 4-6). Apply 5g to affected areas BID PRN mirtazapine 2022-0 Yes [id number] 15mg Take 1 [facility] 15 mg 2-21 tablet by ity of tablet 00:00: mouth at [place] 00 bedtime. Medical Branch levothyroxi Yes [id number] 100ug Take 1 [facility] ne 100 mcg 2-21 tablet by ity of tablet 00:00: mouth [place] 00 every Medical morning. Branch citalopram Yes [id number] 20mg Take 1 [facility] 20 mg 2-21 tablet by ity of tablet 00:00: mouth in [place] 00 the Medical morning. Branch carbidopa-l Yes [id number] TAKE 1 [facility] evodopa 2-21 TABLET BY ity of 25-100 mg 00:00: MOUTH FOUR [place] tablet 00 TIMES A Medical DAY Branch atorvastati Yes [id number] 40mg Take 1 [facility] n 40 mg 2-21 tablet by ity of tablet 00:00: mouth at [place] [address] bedtime. Medical Branch Diclofenac Yes [id number] Apply to [facility] Sodium 2-21 103 area(s) 4 ity of (VOLTAREN) 00:00: (four) [place] 1 % gel 00 times Medical daily. Branch Apply 4 g qid Lidocaine 5 Yes [id number] Apply to [facility] % cream 2-21 103 area(s) 2 ity of 00:00: (two) [place] 00 times Medical daily as Branch needed for Pain (scale 4-6). Apply 5g to affected areas BID PRN mirtazapine Yes [id number] 15mg Take 1 [facility] 15 mg 2-21 tablet by ity of tablet 00:00: mouth at [place] [address] bedtime. Medical Branch levothyroxi Yes [id number] 100ug Take 1 [facility] ne 100 mcg 2-21 tablet by ity of tablet 00:00: mouth [place] 00 every Medical morning. Branch citalopram Yes [id number] 20mg Take 1 [facility] 20 mg 2-21 tablet by ity of tablet 00:00: mouth in [place] 00 the Medical morning. Branch carbidopa-l 2022- Yes [id number] TAKE 1 [facility] evodopa 2-21 TABLET BY ity of 25-100 mg 00:00: MOUTH FOUR [place] tablet 00 TIMES A Medical DAY Branch atorvastati Yes [id number] 40mg Take 1 [facility] n 40 mg 2-21 tablet by ity of tablet 00:00: mouth at [place] [address] bedtime. Medical Branch Diclofenac Yes [id number] Apply to [facility] Sodium 2-21 103 area(s) 4 ity of (VOLTAREN) 00:00: (four) [place] 1 % gel 00 times Medical daily. Branch Apply 4 g qid Lidocaine 5 2022-0 Yes [id number] Apply to [facility] % cream 2-21 103 area(s) 2 ity of 00:00: (two) [place] 00 times Medical daily as Branch needed for Pain (scale 4-6). Apply 5g to affected areas BID PRN mirtazapine 2022-0 Yes [id number] 15mg Take 1 [facility] 15 mg 2-21 tablet by ity of tablet 00:00: mouth at [place] 00 bedtime. Medical Branch levothyroxi 2022-0 Yes [id number] 100ug Take 1 [facility] ne 100 mcg 2-21 tablet by ity of tablet 00:00: mouth [place] 00 every Medical morning. Branch citalopram 2022-0 Yes [id number] 20mg Take 1 [facility] 20 mg 2-21 tablet by it[facility] of tablet 00:00: mouth in [place] 00 the Medical morning. Branch carbidopa-l 2022-0 Yes [id number] TAKE 1 [facility] evodopa 2-21 TABLET BY ity of 25-100 mg 00:00: MOUTH FOUR [place] tablet 00 TIMES A Medical DAY Branch atorvastati 0 Yes [id number] 40mg Take 1 [facility] n 40 mg 2-21 tablet by ity of tablet 00:00: mouth at [place] 00 bedtime. Medical Branch Diclofenac 2022- Yes [id number] Apply to [facility] Sodium 2-21 103 area(s) 4 ity of (VOLTAREN) 00:00: (four) [place] 1 % gel 00 times Medical daily. Branch Apply 4 g qid Lidocaine 5 2022-0 Yes [id number] Apply to [facility] % cream 2-21 103 area(s) 2 ity of 00:00: (two) [place] 00 times Medical daily as Branch needed for Pain (scale 4-6). Apply 5g to affected areas BID PRN mirtazapine 2022-0 Yes [id number] 15mg Take 1 [facility] 15 mg 2-21 tablet by ity of tablet 00:00: mouth at [place] 00 bedtime. Medical Branch levothyroxi 2022-0 Yes [id number] 100ug Take 1 [facility] ne 100 mcg 2-21 tablet by ity of tablet 00:00: mouth [place] 00 every Medical morning. Branch citalopram Yes [id number] 20mg Take 1 [facility] 20 mg 2-21 tablet by it[facility] of tablet 00:00: mouth in [place] 00 the Medical morning. Branch carbidopa-l Yes [id number] TAKE 1 [facility] evodopa 2-21 TABLET BY ity of 25-100 mg 00:00: MOUTH FOUR [place] tablet 00 TIMES A Medical DAY Branch atorvastati Yes [id number] 40mg Take 1 [facility] n 40 mg 2-21 tablet by ity of tablet 00:00: mouth at [place] [address] bedtime. Medical Branch Diclofenac Yes [id number] Apply to [facility] Sodium 2-21 103 area(s) 4 ity of (VOLTAREN) 00:00: (four) [place] 1 % gel 00 times Medical daily. Branch Apply 4 g qid Lidocaine 5 Yes [id number] Apply to [facility] % cream 2-21 103 area(s) 2 ity of 00:00: (two) [place] 00 times Medical daily as Branch needed for Pain (scale 4-6). Apply 5g to affected areas BID PRN mirtazapine Yes [id number] 15mg Take 1 [facility] 15 mg 2-21 tablet by ity of tablet 00:00: mouth at [place] [address] bedtime. Medical Branch levothyroxi Yes [id number] 100ug Take 1 [facility] ne 100 mcg 2-21 tablet by ity of tablet 00:00: mouth [place] 00 every Medical morning. Branch citalopram Yes [id number] 20mg Take 1 [facility] 20 mg 2-21 tablet by ity of tablet 00:00: mouth in [place] 00 the Medical morning. Branch carbidopa-l Yes [id number] TAKE 1 [facility] evodopa 2-21 TABLET BY ity of 25-100 mg 00:00: MOUTH FOUR [place] tablet 00 TIMES A Medical DAY Branch atorvastati Yes [id number] 40mg Take 1 [facility] n 40 mg 2-21 tablet by ity of tablet 00:00: mouth at [place] [address] bedtime. Medical Branch Diclofenac Yes [id number] Apply to [facility] Sodium 2-21 103 area(s) 4 ity of (VOLTAREN) 00:00: (four) [place] 1 % gel 00 times Medical daily. Branch Apply 4 g qid Lidocaine 5 2022-0 Yes [id number] Apply to [facility] % cream 2-21 103 area(s) 2 ity of 00:00: (two) [place] 00 times Medical daily as Branch needed for Pain (scale 4-6). Apply 5g to affected areas BID PRN mirtazapine 2022-0 Yes [id number] 15mg Take 1 [facility] 15 mg 2-21 tablet by ity of tablet 00:00: mouth at [place] [address] bedtime. Medical Branch levothyroxi 2022-0 Yes [id number] 100ug Take 1 [facility] ne 100 mcg 2-21 tablet by ity of tablet 00:00: mouth [place] 00 every Medical morning. Branch donepeziL 5 2022-0 Yes [id number] 5mg Take 1 [facility] mg tablet 2-21 tablet by ity o f 00:00: mouth at [place] [address] bedtime. Medical Branch citalopram 2022-0 Yes [id number] 20mg Take 1 [facility] 20 mg 2-21 tablet by ity of tablet 00:00: mouth in [place] 00 the Medical morning. Branch carbidopa-l 2022-0 Yes [id number] TAKE 1 [facility] evodopa 2-21 TABLET BY ity of 25-100 mg 00:00: MOUTH FOUR [place] tablet 00 TIMES A Medical DAY Branch atorvastati 2022-0 Yes [id number] 40mg Take 1 [facility] n 40 mg 2-21 tablet by ity of tablet 00:00: mouth at [place] [address] bedtime. Medical Branch Diclofenac 2022-0 Yes [id number] Apply to [facility] Sodium 2-21 103 area(s) 4 ity of (VOLTAREN) 00:00: (four) [place] 1 % gel 00 times Medical daily. Branch Apply 4 g qid Lidocaine 5 2022-0 Yes [id number] Apply to [facility] % cream 2-21 103 area(s) 2 ity of 00:00: (two) [place] 00 times Medical daily as Branch needed for Pain (scale 4-6). Apply 5g to affected areas BID PRN mirtazapine 2022-0 Yes [id number] 15mg Take 1 [facility] 15 mg 2-21 tablet by ity of tablet 00:00: mouth at [place] [address] bedtime. Medical Branch levothyroxi Yes [id number] 100ug Take 1 [facility] ne 100 mcg 2-21 tablet by ity of tablet 00:00: mouth [place] 00 every Medical morning. Branch donepeziL 5 Yes [id number] 5mg Take 1 [facility] mg tablet 2-21 tablet by ity o f 00:00: mouth at [place] [address] bedtime. Medical Branch citalopram Yes [id number] 20mg Take 1 [facility] 20 mg 2-21 tablet by ity of tablet 00:00: mouth in [place] 00 the Medical morning. Branch carbidopa-l Yes [id number] TAKE 1 [facility] evodopa 2-21 TABLET BY ity of 25-100 mg 00:00: MOUTH FOUR [place] tablet 00 TIMES A Medical DAY Branch atorvastati Yes [id number] 40mg Take 1 [facility] n 40 mg 2-21 tablet by ity of tablet 00:00: mouth at [place] [address] bedtime. Medical Branch Diclofenac Yes [id number] Apply to [facility] Sodium 2-21 103 area(s) 4 ity of (VOLTAREN) 00:00: (four) [place] 1 % gel 00 times Medical daily. Branch Apply 4 g qid Lidocaine 5 Yes [id number] Apply to [facility] % cream 2-21 103 area(s) 2 ity of 00:00: (two) [place] 00 times Medical daily as Branch needed for Pain (scale 4-6). Apply 5g to affected areas BID PRN mirtazapine Yes [id number] 15mg Take 1 [facility] 15 mg 2-21 tablet by ity of tablet 00:00: mouth at [place] [address] bedtime. Medical Branch levothyroxi Yes [id number] 100ug Take 1 [facility] ne 100 mcg 2-21 tablet by ity of tablet 00:00: mouth [place] 00 every Medical morning. Branch donepeziL 5 Yes [id number] 5mg Take 1 [facility] mg tablet 2-21 tablet by ity o f 00:00: mouth at [place] [address] bedtime. Medical Branch citalopram Yes [id number] 20mg Take 1 [facility] 20 mg 2-21 tablet by ity of tablet 00:00: mouth in [place] 00 the Medical morning. Branch carbidopa-l Yes [id number] TAKE 1 [facility] evodopa 2-21 TABLET BY ity of 25-100 mg 00:00: MOUTH FOUR [place] tablet 00 TIMES A Medical DAY Branch atorvastati Yes [id number] 40mg Take 1 [facility] n 40 mg 2-21 tablet by ity of tablet 00:00: mouth at [place] [address] bedtime. Medical Branch Diclofenac Yes [id number] Apply to [facility] Sodium 2-21 103 area(s) 4 ity of (VOLTAREN) 00:00: (four) [place] 1 % gel 00 times Medical daily. Branch Apply 4 g qid Lidocaine 5 Yes [id number] Apply to [facility] % cream 2-21 103 area(s) 2 ity of 00:00: (two) [place] 00 times Medical daily as Branch needed for Pain (scale 4-6). Apply 5g to affected areas BID PRN mirtazapine Yes [id number] 15mg Take 1 [facility] 15 mg 2-21 tablet by ity of tablet 00:00: mouth at [place] [address] bedtime. Medical Branch levothyroxi Yes [id number] 100ug Take 1 [facility] ne 100 mcg 2-21 tablet by ity of tablet 00:00: mouth [place] 00 every Medical morning. Branch donepeziL 5 Yes [id number] 5mg Take 1 [facility] mg tablet 2-21 tablet by ity o f 00:00: mouth at [place] [address] bedtime. Medical Branch citalopram Yes [id number] 20mg Take 1 [facility] 20 mg 2-21 tablet by ity of tablet 00:00: mouth in [place] 00 the Medical morning. Branch carbidopa-l Yes [id number] TAKE 1 [facility] evodopa 2-21 TABLET BY ity of 25-100 mg 00:00: MOUTH FOUR [place] tablet 00 TIMES A Medical DAY Branch atorvastati Yes [id number] 40mg Take 1 [facility] n 40 mg 2-21 tablet by ity of tablet 00:00: mouth at [place] [address] bedtime. Medical Branch Diclofenac Yes [id number] Apply to [facility] Sodium 2-21 103 area(s) 4 ity of (VOLTAREN) 00:00: (four) [place] 1 % gel 00 times Medical daily. Branch Apply 4 g qid Lidocaine 5 2022-0 Yes [id number] Apply to [facility] % cream 2-21 103 area(s) 2 ity of 00:00: (two) [place] 00 times Medical daily as Branch needed for Pain (scale 4-6). Apply 5g to affected areas BID PRN mirtazapine 2022-0 Yes [id number] 15mg Take 1 [facility] 15 mg 2-21 tablet by ity of tablet 00:00: mouth at [place] [address] bedtime. Medical Branch levothyroxi 2022-0 Yes [id number] 100ug Take 1 [facility] ne 100 mcg 2-21 tablet by ity of tablet 00:00: mouth [place] 00 every Medical morning. Branch donepeziL 5 Yes [id number] 5mg Take 1 [facility] mg tablet 2-21 tablet by ity o f 00:00: mouth at [place] [address] bedtime. Medical Branch citalopram Yes [id number] 20mg Take 1 [facility] 20 mg 2-21 tablet by ity of tablet 00:00: mouth in [place] 00 the Medical morning. Branch carbidopa-l Yes [id number] TAKE 1 [facility] evodopa 2-21 TABLET BY ity of 25-100 mg 00:00: MOUTH FOUR [place] tablet 00 TIMES A Medical DAY Branch atorvastati 0 Yes [id number] 40mg Take 1 [facility] n 40 mg 2-21 tablet by ity of tablet 00:00: mouth at [place] [address] bedtime. Medical Branch Diclofenac Yes [id number] Apply to [facility] Sodium 2-21 103 area(s) 4 ity of (VOLTAREN) 00:00: (four) [place] 1 % gel 00 times Medical daily. Branch Apply 4 g qid Lidocaine 5 2022-0 Yes [id number] Apply to [facility] % cream 2-21 103 area(s) 2 ity of 00:00: (two) [place] 00 times Medical daily as Branch needed for Pain (scale 4-6). Apply 5g to affected areas BID PRN mirtazapine 2022-0 Yes [id number] 15mg Take 1 [facility] 15 mg 2-21 tablet by ity of tablet 00:00: mouth at [place] [address] bedtime. Medical Branch levothyroxi 2022-0 Yes [id number] 100ug Take 1 [facility] ne 100 mcg 2-21 tablet by ity of tablet 00:00: mouth [place] 00 every Medical morning. Branch donepeziL 5 Yes [id number] 5mg Take 1 [facility] mg tablet 2-21 tablet by ity o f 00:00: mouth at [place] [address] bedtime. Medical Branch citalopram Yes [id number] 20mg Take 1 [facility] 20 mg 2-21 tablet by ity of tablet 00:00: mouth in [place] 00 the Medical morning. Branch carbidopa-l Yes [id number] TAKE 1 [facility] evodopa 2-21 TABLET BY ity of 25-100 mg 00:00: MOUTH FOUR [place] tablet 00 TIMES A Medical DAY Branch atorvastati Yes [id number] 40mg Take 1 [facility] n 40 mg 2-21 tablet by ity of tablet 00:00: mouth at [place] [address] bedtime. Medical Branch Diclofenac Yes [id number] Apply to [facility] Sodium 2-21 103 area(s) 4 ity of (VOLTAREN) 00:00: (four) [place] 1 % gel 00 times Medical daily. Branch Apply 4 g qid Lidocaine 5 Yes [id number] Apply to [facility] % cream 2-21 103 area(s) 2 ity of 00:00: (two) [place] 00 times Medical daily as Branch needed for Pain (scale 4-6). Apply 5g to affected areas BID PRN mirtazapine Yes [id number] 15mg Take 1 [facility] 15 mg 2-21 tablet by ity of tablet 00:00: mouth at [place] [address] bedtime. Medical Branch levothyroxi Yes [id number] 100ug Take 1 [facility] ne 100 mcg 2-21 tablet by ity of tablet 00:00: mouth [place] 00 every Medical morning. Branch donepeziL 5 Yes [id number] 5mg Take 1 [facility] mg tablet 2-21 tablet by ity o f 00:00: mouth at [place] [address] bedtime. Medical Branch citalopram Yes [id number] 20mg Take 1 [facility] 20 mg 2-21 tablet by ity of tablet 00:00: mouth in [place] 00 the Medical morning. Branch carbidopa-l Yes [id number] TAKE 1 [facility] evodopa 2-21 TABLET BY ity of 25-100 mg 00:00: MOUTH FOUR [place] tablet 00 TIMES A Medical DAY Branch atorvastati Yes [id number] 40mg Take 1 [facility] n 40 mg 2-21 tablet by ity of tablet 00:00: mouth at [place] 00 bedtime. Medical Branch Diclofenac Yes [id number] Apply to [facility] Sodium 2-21 103 area(s) 4 ity of (VOLTAREN) 00:00: (four) [place] 1 % gel 00 times Medical daily. Branch Apply 4 g qid Lidocaine 5 Yes [id number] Apply to [facility] % cream 2-21 103 area(s) 2 ity of 00:00: (two) [place] 00 times Medical daily as Branch needed for Pain (scale 4-6). Apply 5g to affected areas BID PRN mirtazapine Yes [id number] 15mg Take 1 [facility] 15 mg 2-21 tablet by ity of tablet 00:00: mouth at [place] 00 bedtime. Medical Branch levothyroxi Yes [id number] 100ug Take 1 [facility] ne 100 mcg 2-21 tablet by ity of tablet 00:00: mouth [place] 00 every Medical morning. Branch donepeziL 5 Yes [id number] 5mg Take 1 [facility] mg tablet 2-21 tablet by ity o f 00:00: mouth at [place] 00 bedtime. Medical Branch citalopram Yes [id number] 20mg Take 1 [facility] 20 mg 2-21 tablet by ity of tablet 00:00: mouth in [place] 00 the Medical morning. Branch carbidopa-l Yes [id number] TAKE 1 [facility] evodopa 2-21 TABLET BY ity of 25-100 mg 00:00: MOUTH FOUR [place] tablet 00 TIMES A Medical DAY Branch atorvastati Yes [id number] 40mg Take 1 [facility] n 40 mg 2-21 tablet by ity of tablet 00:00: mouth at [place] 00 bedtime. Medical Branch Diclofenac Yes [id number] Apply to [facility] Sodium 2-21 103 area(s) 4 ity of (VOLTAREN) 00:00: (four) [place] 1 % gel 00 times Medical daily. Branch Apply 4 g qid Lidocaine 5 Yes [id number] Apply to [facility] % cream 2-21 103 area(s) 2 ity of 00:00: (two) [place] 00 times Medical daily as Branch needed for Pain (scale 4-6). Apply 5g to affected areas BID PRN mirtazapine Yes [id number] 15mg Take 1 [facility] 15 mg 2-21 tablet by ity of tablet 00:00: mouth at [place] 00 bedtime. Medical Branch levothyroxi Yes [id number] 100ug Take 1 [facility] ne 100 mcg 2-21 tablet by ity of tablet 00:00: mouth [place] 00 every Medical morning. Branch donepeziL 5 Yes [id number] 5mg Take 1 [facility] mg tablet 2-21 tablet by ity o f 00:00: mouth at [place] 00 bedtime. Medical Branch citalopram Yes [id number] 20mg Take 1 [facility] 20 mg 2-21 tablet by ity of tablet 00:00: mouth in [place] 00 the Medical morning. Branch carbidopa-l Yes [id number] TAKE 1 [facility] evodopa 2-21 TABLET BY ity of 25-100 mg 00:00: MOUTH FOUR [place] tablet 00 TIMES A Medical DAY Branch atorvastati Yes [id number] 40mg Take 1 [facility] n 40 mg 2-21 tablet by ity of tablet 00:00: mouth at [place] 00 bedtime. Medical Branch Diclofenac Yes [id number] Apply to [facility] Sodium 2-21 103 area(s) 4 ity of (VOLTAREN) 00:00: (four) [place] 1 % gel 00 times Medical daily. Branch Apply 4 g qid Lidocaine 5 Yes [id number] Apply to [facility] % cream 2-21 103 area(s) 2 ity of 00:00: (two) [place] 00 times Medical daily as Branch needed for Pain (scale 4-6). Apply 5g to affected areas BID PRN mirtazapine Yes [id number] 15mg Take 1 [facility] 15 mg 2-21 tablet by ity of tablet 00:00: mouth at [place] 00 bedtime. Medical Branch levothyroxi Yes [id number] 100ug Take 1 [facility] ne 100 mcg 2-21 tablet by ity of tablet 00:00: mouth [place] 00 every Medical morning. Branch donepeziL 5 Yes [id number] 5mg Take 1 [facility] mg tablet 2-21 tablet by ity o f 00:00: mouth at [place] [address] bedtime. Medical Branch citalopram Yes [id number] 20mg Take 1 [facility] 20 mg 2-21 tablet by ity of tablet 00:00: mouth in [place] 00 the Medical morning. Branch carbidopa-l Yes [id number] TAKE 1 [facility] evodopa 2-21 TABLET BY ity of 25-100 mg 00:00: MOUTH FOUR [place] tablet 00 TIMES A Medical DAY Branch atorvastati Yes [id number] 40mg Take 1 [facility] n 40 mg 2-21 tablet by ity of tablet 00:00: mouth at [place] [address] bedtime. Medical Branch Diclofenac Yes [id number] Apply to [facility] Sodium 2-21 103 area(s) 4 ity of (VOLTAREN) 00:00: (four) [place] 1 % gel 00 times Medical daily. Branch Apply 4 g qid Lidocaine Yes [id number] Apply to [facility] % cream 2-21 103 area(s) 2 ity of 00:00: (two) [place] 00 times Medical daily as Branch needed for Pain (scale 4-6). Apply 5g to affected areas BID PRN mirtazapine Yes [id number] 15mg Take 1 [facility] 15 mg 2-21 tablet by ity of tablet 00:00: mouth at [place] [address] bedtime. Medical Branch levothyroxi Yes [id number] 100ug Take 1 [facility] ne 100 mcg 2-21 tablet by ity of tablet 00:00: mouth [place] 00 every Medical morning. Branch donepeziL 5 Yes [id number] 5mg Take 1 [facility] mg tablet 2-21 tablet by ity o f 00:00: mouth at [place] [address] bedtime. Medical Branch citalopram Yes [id number] 20mg Take 1 [facility] 20 mg 2-21 tablet by ity of tablet 00:00: mouth in [place] 00 the Medical morning. Branch carbidopa-l Yes [id number] TAKE 1 [facility] evodopa 2-21 TABLET BY ity of 25-100 mg 00:00: MOUTH FOUR [place] tablet 00 TIMES A Medical DAY Branch atorvastati Yes [id number] 40mg Take 1 [facility] n 40 mg 2-21 tablet by ity of tablet 00:00: mouth at [place] [address] bedtime. Medical Branch Diclofenac Yes [id number] Apply to [facility] Sodium 2-21 103 area(s) 4 ity of (VOLTAREN) 00:00: (four) [place] 1 % gel 00 times Medical daily. Branch Apply 4 g qid Lidocaine 5 Yes [id number] Apply to [facility] % cream 2-21 103 area(s) 2 ity of 00:00: (two) [place] 00 times Medical daily as Branch needed for Pain (scale 4-6). Apply 5g to affected areas BID PRN mirtazapine Yes [id number] 15mg Take 1 [facility] 15 mg 2-21 tablet by ity of tablet 00:00: mouth at [place] [address] bedtime. Medical Branch levothyroxi Yes [id number] 100ug Take 1 [facility] ne 100 mcg 2-21 tablet by ity of tablet 00:00: mouth [place] 00 every Medical morning. Branch citalopram Yes [id number] 20mg Take 1 [facility] 20 mg 2-21 tablet by ity of tablet 00:00: mouth in [place] 00 the Medical morning. Branch carbidopa-l Yes [id number] TAKE 1 [facility] evodopa 2-21 TABLET BY ity of 25-100 mg 00:00: MOUTH FOUR [place] tablet 00 TIMES A Medical DAY Branch atorvastati Yes [id number] 40mg Take 1 [facility] n 40 mg 2-21 tablet by ity of tablet 00:00: mouth at [place] [address] bedtime. Medical Branch Diclofenac Yes [id number] Apply to [facility] Sodium 2-21 103 area(s) 4 ity of (VOLTAREN) 00:00: (four) [place] 1 % gel 00 times Medical daily. Branch Apply 4 g qid Lidocaine 5 2022-0 Yes [id number] Apply to [facility] % cream 2-21 103 area(s) 2 ity of 00:00: (two) [place] 00 times Medical daily as Branch needed for Pain (scale 4-6). Apply 5g to affected areas BID PRN mirtazapine 2022-0 Yes [id number] 15mg Take 1 [facility] 15 mg 2-21 tablet by ity of tablet 00:00: mouth at [place] [address] bedtime. Medical Branch levothyroxi 2022-0 Yes [id number] 100ug Take 1 [facility] ne 100 mcg 2-21 tablet by ity of tablet 00:00: mouth [place] 00 every Medical morning. Branch citalopram 2022-0 Yes [id number] 20mg Take 1 [facility] 20 mg 2-21 tablet by ity of tablet 00:00: mouth in [place] 00 the Medical morning. Branch carbidopa-l 2022-0 Yes [id number] TAKE 1 [facility] evodopa 2-21 TABLET BY ity of 25-100 mg 00:00: MOUTH FOUR [place] tablet 00 TIMES A Medical DAY Branch atorvastati 0 Yes [id number] 40mg Take 1 [facility] n 40 mg 2-21 tablet by ity of tablet 00:00: mouth at [place] [address] bedtime. Medical Branch Diclofenac Yes [id number] Apply to [facility] Sodium 2-21 103 area(s) 4 ity of (VOLTAREN) 00:00: (four) [place] 1 % gel 00 times Medical daily. Branch Apply 4 g qid Lidocaine 5 Yes [id number] Apply to [facility] % cream 2-21 103 area(s) 2 ity of 00:00: (two) [place] 00 times Medical daily as Branch needed for Pain (scale 4-6). Apply 5g to affected areas BID PRN mirtazapine Yes [id number] 15mg Take 1 [facility] 15 mg 2-21 tablet by ity of tablet 00:00: mouth at [place] [address] bedtime. Medical Branch levothyroxi 2022- Yes [id number] 100ug Take 1 [facility] ne 100 mcg 2-21 tablet by ity of tablet 00:00: mouth [place] [address] every Medical morning. Branch citalopram 2022-0 Yes [id number] 20mg Take 1 [facility] 20 mg 2-21 tablet by ity of tablet 00:00: mouth in [place] 00 the Medical morning. Branch carbidopa-l 2022-0 Yes [id number] TAKE 1 [facility] evodopa 2-21 TABLET BY ity of 25-100 mg 00:00: MOUTH FOUR [place] tablet 00 TIMES A Medical DAY Branch atorvastati 2022-0 Yes [id number] 40mg Take 1 [facility] n 40 mg 2-21 tablet by ity of tablet 00:00: mouth at [place] 00 bedtime. Medical Branch Diclofenac 0 Yes [id number] Apply to [facility] Sodium 2-21 103 area(s) 4 ity of (VOLTAREN) 00:00: (four) [place] 1 % gel 00 times Medical daily. Branch Apply 4 g qid Lidocaine 5 0 Yes [id number] Apply to [facility] % cream 2-21 103 area(s) 2 ity of 00:00: (two) [place] 00 times Medical daily as Branch needed for Pain (scale 4-6). Apply 5g to affected areas BID PRN mirtazapine 0 Yes [id number] 15mg Take 1 [facility] 15 mg 2-21 tablet by ity of tablet 00:00: mouth at [place] 00 bedtime. Medical Branch levothyroxi 0 Yes [id number] 100ug Take 1 [facility] ne 100 mcg 2-21 tablet by ity of tablet 00:00: mouth [place] 00 every Medical morning. Branch citalopram 0 Yes [id number] 20mg Take 1 [facility] 20 mg 2-21 tablet by ity of tablet 00:00: mouth in [place] 00 the Medical morning. Branch carbidopa-l 0 Yes [id number] TAKE 1 [facility] evodopa 2-21 TABLET BY ity of 25-100 mg 00:00: MOUTH FOUR [place] tablet 00 TIMES A Medical DAY Branch atorvastati 0 Yes [id number] 40mg Take 1 [facility] n 40 mg 2-21 tablet by ity of tablet 00:00: mouth at [place] 00 bedtime. Medical Branch Diclofenac 0 Yes [id number] Apply to [facility] Sodium 2-21 103 area(s) 4 ity of (VOLTAREN) 00:00: (four) [place] 1 % gel 00 times Medical daily. Branch Apply 4 g qid Lidocaine 5 2022-0 Yes [id number] Apply to [facility] % cream 2-21 103 area(s) 2 ity of 00:00: (two) [place] 00 times Medical daily as Branch needed for Pain (scale 4-6). Apply 5g to affected areas BID PRN donepeziL 5 2022-0 2023- No [id number] 5mg Take 1 [facility] mg tablet 2-21 03-07 tablet by ity of 00:00: 00:00 mouth at [place] 00 :00 bedtime. Medical Branch donepeziL 5 2022- No [id number] 5mg Take 1 [facility] mg tablet 05-21 tablet by ity of 00:00: 00:00 mouth at [place] 00 :00 bedtime. Medical Branch levoFLOXaci 0 2022- No 750mg 750 mg, U nivers n 04-20 Oral, ONCE ity of (LEVAQUIN) 15:00: 14:13 NOW, 1 [place] 750 00 :00 dose, On Medic al mg Sat Branch 04/20/22 at 0900, ARELI
Re ason for Anti-Infec tive: Documented Infection< br>Documen esha Infection Site: Urine
D uration of Therapy: 7 days iopamidol 2022- No [id number] 100mL 100 mL, Univers (ISOVUE 04-20 Intravenou ity o f 370-500 mL) 12:45: 11:47 s, ONCE, 1 [place] injection 00 :00 dose, On Medica l 100 mL Sat Branch 04/20/22 at 0645, Routine NaCl 0.9% Yes 5mL 5 mL, Slow Un lucy (NS) 04-20 IV Push, ity of injection 5 11:21: PRN - [place] mL 36 [facility] Medical NS, Branch Starting on 04/20/22 at 0521, Until Discontinu ed, 10 mL levoFLOXaci 2022-0 Yes [id number] 500mg Take 1 [facility] n 04-20 tablet by ity of (LEVAQUIN) 00:00: mouth [place] 500 mg 00 every 24 Medical tablet (- Branch ur) hours. levoFLOXaci 2022-0 Yes [id number] 500mg Take 1 [facility] n - tablet by ity of (LEVAQUIN) 00:00: mouth [place] 500 mg 00 every 24 Medical tablet (- Branch ur) hours. levoFLOXaci 2022-0 2022- No [id number] 500mg Take 1 [facility] n 04-20 tablet by ity of (LEVAQUIN) 00:00: 00:00 mouth [place] 500 mg 00 :00 every 24 Medical tablet ( Branch ur) hours. levoFLOXaci 2022- No [id number] 500mg Take 1 [facility] n 04-20 tablet by ity of (LEVAQUIN) 00:00: 00:00 mouth [place] 500 mg 00 :00 every 24 Medical tablet ( Branch ur) hours. cefdinir 2022- No [id number] 300mg Take 1 U nivers 300 mg [...] donepezil 2021-03 Yes 5mg Take 5 mg Gray inga (ARICEPT) 5 0-19 by mouth [facility] ege MG tablet 08:34: nightly. of 46 Medicin e donepezil 2021-03 Yes 5mg Take 5 mg [place] ing[facility] (ARICEPT) 5 0-19 by mouth [facility]anna ege MG tablet 08:34: nightly. of 46 Medicin e sod 2021-03- No [id number] 1{packe 1 Packet, [facility] bicarb-citr 0-05 10-05 t} Oral, ity of ic 14:45: 14:34 ONCE, 1 [place] ac-simeth 00 :00 dose, On Medica l (E-Z-GAS Wed Branch II) 01/02/22 at 2.21-1.53 0945, gram/4 gram Routine packet 1 Packet barium 2021-03- No [id number] 710mL 710 mL, U nivers sulfate 0-05 10-05 Oral, ity of (LIQUID E-Z 14:45: 14:35 ONCE, 1 [place] [facility]) 60 % 00 :00 dose, On Medi manny (w/v) oral Wed Branch suspension 01/02/22 at 710 mL 0945, Routine ergocalcife 2021- No [id number] 13465W Take 1 [facility] rol, 9-23 10-30 capsule by ity of vitamin d2, 00:00: 04:59 [place] 1,250 mcg 00 :00 weekly for Medi manny (50,000 6 doses. Branch unit) capsule ergocalcife 0 2021- No [id number] 04008L Take 1 [facility] rol, 9-23 10-30 capsule by ity of vitamin d2, 00:00: 04:59 [place] 1,250 mcg 00 :00 weekly for Medi manny (50,000 6 doses. Branch unit) capsule ergocalcife 0 2021- No [id number] Take 1 [facility] rol, 9-23 10-30 capsule by ity of vitamin d2, 00:00[place] 04[place] 1[place]cg 00 :00 weekly for Medi manny (50,000 6 doses. Branch unit) capsule ergocalcife 2021-0 2021- No [id number] Take 1 [facility] rol, 9-23 10-30 capsule by ity of vitamin d2, 00:00: 04:59 [place] 1,250 mcg 00 :00 weekly for Medi manny (50,000 6 doses. Branch unit) capsule ergocalcife 0 2021- No [id number] Take 1 [facility] rol, 9-23 10-30 capsule by ity of vitamin d2, 00:00: 04:59 [place] 1,250 mcg 00 :00 weekly for Medi manny (50,000 6 doses. Branch unit) capsule ergocalcife 0 2021- No [id number] Take 1 [facility] rol, 9-23 10-30 capsule by ity of vitamin d2, 00:00: 04:59 mouth [place] 1,250 mcg 00 :00 weekly for Medi manny (50,000 6 doses. Branch unit) capsule ergocalcife 2021-0 2021- No [id number] Take 1 [facility] rol, 9-23 10-30 capsule by ity of vitamin d2, 00:00: 04:59 [place] 1,250 mcg 00 :00 weekly for Medi manny (50,000 6 doses. Branch unit) capsule ergocalcife 2021- No [id number] Take 1 [facility] rol, 9-23 10-30 capsule by ity of vitamin d2, 00:00: 04:59 [place] 1,250 mcg 00 :00 weekly for Medi manny (50,000 6 doses. Branch unit) capsule ergocalcife 2021- No [id number] Take 1 [facility] rol, 9-23 10-30 capsule by ity of vitamin d2, 00:00: 04:59 mouth [place] 1,250 mcg 00 :00 weekly for Medi manny (50,000 6 doses. Branch unit) capsule ergocalcife 2021- No [id number] Take 1 [facility] rol, 9-23 10-30 capsule by ity of vitamin d2, 00:00: 04:59 mouth [place] 1,250 mcg 00 :00 weekly for Medi manny (50,000 6 doses. Branch unit) capsule ergocalcife 2021- No [id number] Take 1 [facility] rol, 9-23 10-30 capsule by ity of vitamin d2, 00:00: 04:59 mouth [place] 1,250 mcg 00 :00 weekly for Medi manny (50,000 6 doses. Branch unit) capsule ergocalcife 2021- No [id number] Take 1 [facility] rol, 9-23 10-30 capsule by ity of vitamin d2, 00:00: 04:59 mouth [place] 1,250 mcg 00 :00 weekly for Medi manny (50,000 6 doses. Branch unit) capsule ergocalcife 2021- No [id number] Take 1 [facility] rol, 9-23 10-30 capsule by ity of vitamin d2, 00:00: 04:59 mouth [place] 1,250 mcg 00 :00 weekly for Medi manny (50,000 6 doses. Branch unit) capsule pantoprazol Yes [id number] 40mg Take 1 [facility] e 40 mg EC 9-22 tablet by ity of tablet 00:00: mouth in [place] 00 the Medical morning. Branch pantoprazol 2021-0 Yes [id number] 40mg Take 1 [facility] e 40 mg EC 9-22 tablet by ity of tablet 00:00: mouth in [place] 00 the Medical morning. Branch pantoprazol 2021-0 Yes [id number] 40mg Take 1 [facility] e 40 mg EC 9-22 tablet by ity of tablet 00:00: mouth in [place] 00 the Medical morning. Branch pantoprazol 2021-0 Yes [id number] 40mg Take 1 [facility] e 40 mg EC 9-22 tablet by ity of tablet 00:00: mouth in [place] 00 the Medical morning. Branch pantoprazol 2021-0 Yes [id number] 40mg Take 1 [facility] e 40 mg EC 9-22 tablet by ity of tablet 00:00: mouth in [place] 00 the Medical morning. Branch pantoprazol 2021-0 Yes [id number] 40mg Take 1 [facility] e 40 mg EC 9-22 tablet by ity of tablet 00:00: mouth in [place] 00 the Medical morning. Branch pantoprazol 2021-0 Yes [id number] 40mg Take 1 [facility] e 40 mg EC 9-22 tablet by ity of tablet 00:00: mouth in [place] 00 the Medical morning. Branch pantoprazol 2021-0 Yes [id number] 40mg Take 1 [facility] e 40 mg EC 9-22 tablet by ity of tablet 00:00: mouth in [place] 00 the Medical morning. Branch pantoprazol 2021-0 Yes [id number] 40mg Take 1 [facility] e 40 mg EC 9-22 tablet by ity of tablet 00:00: mouth in [place] 00 the Medical morning. Branch pantoprazol 2021-0 Yes [id number] 40mg Take 1 [facility] e 40 mg EC 9-22 tablet by ity of tablet 00:00: mouth in [place] 00 the Medical morning. Branch pantoprazol 2021-0 Yes [id number] 40mg Take 1 [facility] e 40 mg EC 9-22 tablet by ity of tablet 00:00: mouth in [place] 00 the Medical morning. Branch pantoprazol 2021-0 Yes [id number] 40mg Take 1 [facility] e 40 mg EC 9-22 tablet by ity of tablet 00:00: mouth in [place] 00 the Medical morning. Branch pantoprazol 2022-0 Yes [id number] 40mg Take 1 [facility] e 40 mg EC 12-20 tablet by ity of tablet 00:00: mouth in [place] 00 the Medical morning. Branch pantoprazol 2021-2022- No [id number] 40mg Take 1 [facility] e 40 mg EC 12-20 tablet by ity of tablet 00:00: 00:00 mouth in [place] 00 :00 the Medical morning. Branch pantoprazol 2021-2022- No [id number] 40mg Take 1 [facility] e 40 mg EC 12-20 tablet by ity of tablet 00:00: 00:00 mouth in [place] 00 :00 the Medical morning. Branch amLODIPine 2021-2021- No [id number] 5mg Take 1 [facility] 5 mg tablet 9-19 10-20 tablet by it y of 00:00: 04:59 mouth in [place] 00 :00 the Medical morning Branch for 30 days. amLODIPine 2021-2021- No [id number] 5mg Take 1 [facility] 5 mg tablet 9-19 10-20 tablet by it y of 00:00: 04:59 mouth in [place] 00 :00 the Medical morning Branch for 30 days. amLODIPine 2021-2021- No [id number] 5mg Take 1 [facility] 5 mg tablet 9-19 10-20 tablet by it y of 00:00: 04:59 mouth in [place] 00 :00 the Medical morning Branch for 30 days. amLODIPine 2021-0 2021- No [id number] 5mg Take 1 [facility] 5 mg tablet 9-19 10-20 tablet by it y of 00:00: 04:59 mouth in [place] 00 :00 the Medical morning Branch for 30 days. amLODIPine 2021-0 2021- No [id number] 5mg Take 1 [facility] 5 mg tablet 9-19 10-20 tablet by it y of 00:00: 04:59 mouth in [place] 00 :00 the Medical morning Branch for 30 days. amLODIPine 2021-0 2021- No [id number] 5mg Take 1 [facility] 5 mg tablet 9-19 10-20 tablet by it y of 00:00: 04:59 mouth in [place] 00 :00 the Medical morning Branch for 30 days. amLODIPine 2021-0 2021- No [id number] 5mg Take 1 [facility] 5 mg tablet 9-19 10-20 tablet by it y of 00:00: 04:59 mouth in [place] 00 :00 the Medical morning Branch for 30 days. amLODIPine 2021-0 2- No [id number] 5mg Take 1 [facility] 5 mg tablet 9-19 10-20 tablet by it y of 00:00: 04:59 mouth in [place] 00 :00 the Medical morning Branch for 30 days. amLODIPine 2021-2- No [id number] 5mg Take 1 [facility] 5 mg tablet 9-19 10-20 tablet by it y of 00:00: 04:59 mouth in [place] 00 :00 the Medical morning Branch for 30 days. amLODIPine 2021-0 2- No [id number] 5mg Take 1 [facility] 5 mg tablet 9-19 10-20 tablet by it y of 00:00: 04:59 mouth in [place] 00 :00 the Medical morning Branch for 30 days. amLODIPine 2021-2021- No [id number] 5mg Take 1 [facility] 5 mg tablet 9-19 10-20 tablet by it y of 00:00: 04:59 mouth in [place] 00 :00 the Medical morning Branch for 30 days. atorvastati Yes 40mg Take 40 mg Univers n (LIPITOR) 9-18 by mouth ity of 40 mg 15:46: at [place] tablet 50 bedtime. Medical Branch Cholecalcif Yes [...] ity of mg tablet 15:46: mouth in [place] [facility] 50 the Medical morning Branch and 100 mg in the evening. B Complex Yes Take by [facility]ive rs Vitamins 9-18 mouth. ity of tablet 15:46: [place] 50 Medical Branch diphenhydrA 0 Yes 25mg Take 25 mg [facility] MINE 25 mg 9-18 by mouth ity o f capsule 15:46: every 6 [place] [address] (six) Medical hours as Branch needed for [...] mouth ity of tablet 15:46: in the [place] 50 morning. Medical Branch alfuzosin Yes 10mg Take 10 mg Un lucy 10 mg 24 hr 9-18 by mouth ity of tablet 15:46: at [place] 50 bedtime. Medical Branch nitrofurant 0 Yes 100mg Take 100 U nivers oin 100 mg 9-18 mg by ity of capsule 15:46: mouth at [place] 50 bedtime. Medical Branch donepeziL 5 Yes 5mg Take 5 mg U nivers mg tablet 9-18 by mouth ity of 15:46: at [place] 50 bedtime. Medical Branch atorvastati Yes 40mg Take 40 mg Univers n (LIPITOR) 9-18 by mouth ity of 40 mg 15:46: at [facility] 50 bedtime. Medical Branch Cholecalcif Yes 1000U [...] the [place] 50 morning. Medical Branch alfuzosin 2022-0 Yes 10mg Take 10 mg Un lucy [...] ity of mg tablet 15:46: [place] 50 the Medical morning Branch and [...] the evening. B Complex Yes Take by [facility] Vitamins 9-18 mouth. ity of tablet [...] the evening. B Complex Yes Take by [facility] Vitamins 9-18 mouth. ity of tablet 15:46: [place] 50 Medical Branch diphenhydrA 0 Yes 25mg Take 25 mg [facility] MINE 25 mg 9-18 by mouth ity o f capsule 15:46: every 6 [place] 50 (six) Medical hours as Branch needed for Allergies. citalopram Yes 20mg Take 20 mg U nivers 20 mg 9-18 by mouth ity of tablet 15:46: in the [place] [address] morning. Medical Branch alfuzosin Yes 10mg Take 10 mg Un lucy 10 mg 24 hr 9-18 by mouth ity of tablet 15:46: at [place] [address] bedtime. Medical Branch nitrofurant Yes 100mg Take 100 U nivers oin 100 mg 9-18 mg by ity of capsule 15:46: mouth at [place] [address] bedtime. Medical Branch donepeziL 5 Yes 5mg Take 5 mg U nivers mg tablet 9-18 by mouth ity of 15:46: at [place] [address] bedtime. Medical Branch atorvastati Yes 40mg Take [...] the evening. B Complex Yes Take by [facility] rs Vitamins 9-18 mouth. ity of tablet [...] 15:46: at [place] 50 bedtime. Medical Branch Cholecalcif 2022-0 Yes [...] evening. B Complex 2022-0 Yes Take by [employer] [facility] Vitamins 9-18 mouth. ity of tablet 15:46: [place] [address] Medical Branch diphenhydrA 2022-0 Yes 25mg Take 25 mg [facility] MINE 25 mg 9-18 by mouth ity o f capsule 15:46: every 6 [place] 50 (six) Medical hours as Branch needed [...] evening. B Complex 2022-0 Yes Take by [employer] [facility] Vitamins 9-18 mouth. ity of tablet 15:46: [place] [address] Medical Branch diphenhydrA 2022-0 Yes 25mg Take 25 mg [facility] MINE 25 mg 9-18 by mouth ity o f capsule 15:46: every 6 [place] [address] (six) Medical hours as Branch needed for [...] evening. B Complex 2022-0 Yes Take by [employer] [facility] Vitamins 9-18 mouth. ity of tablet 15:46: [place] [address] Medical Branch diphenhydrA 2022-0 Yes 25mg Take 25 mg [facility] MINE 25 mg 9-18 by mouth ity o f capsule 15:46: every 6 [place] [address] (six) Medical hours as Branch needed for [...] evening. B Complex 2022-0 Yes Take by [facility] Vitamins 9-18 mouth. ity of tablet 15:46: [place] [address] Medical Branch diphenhydrA 2022-0 Yes 25mg Take 25 mg [facility] MINE 25 mg 9-18 by mouth ity o f capsule 15:46: every 6 [place] [address] (six) Medical hours as Branch needed for [...] evening. B Complex 2022-0 Yes Take by [facility] Vitamins 9-18 mouth. ity of tablet 15:46: [place] [address] Medical Branch diphenhydrA 2022-0 Yes 25mg Take 25 mg [facility] MINE 25 mg 9-18 by mouth ity o f capsule 15:46: every 6 [place] [address] (six) Medical hours as Branch needed for [...] evening. B Complex 2022-0 Yes Take by [facility] Vitamins 9-18 mouth. ity of tablet 15:46: [place] [address] Medical Branch diphenhydrA 2022-0 Yes 25mg Take [...] evening. B Complex 2022-0 Yes Take by [employer] [facility] Vitamins 9-18 mouth. ity of tablet 15:46: [address] Branch diphenhydrA 2-0 Yes 25mg Take 25 mg Univers MINE 25 mg 9-18 by mouth ity o f capsule 15:46: every 6 [place] 50 (six) Medical hours as Branch needed [...] evening. B Complex 2-0 Yes Take by [employer] rs Vitamins 9-18 mouth. ity of tablet 15:46: [place] [address] Medical Branch Cholecalcif 2022-0 Yes 1000U Take [...] evening. B Complex 2022-0 Yes Take by [employer] [facility] Vitamins 9-18 mouth. ity of tablet 15:46: [place] [address] Medical Branch Cholecalcif 2022-0 Yes 1000U Take [...] evening. B Complex 2-0 Yes Take by Unive rs Vitamins 9-18 mouth. ity of tablet 15:46: [address] Branch Cholecalcif 2022-0 Yes 1000U Take 1,000 Univers stevan, 9-18 Units by ity of Vitamin D3, 15:46: mouth [place] 25 mcg 50 daily. Medical (1,000 Branch unit) capsule metoprolol 2-0 Yes 100mg Take 100 Un lucy tartrate 25 9-18 mg by ity of mg tablet 15:46: mouth in [place] [facility] 50 the Medical morning Branch and 100 mg in the evening. B Complex 2-0 Yes Take by [employer] rs Vitamins 9-18 mouth. ity of tablet 15:46: [address] Branch Cholecalcif 2-0 Yes 1000U Take 1,000 Univers stevan, 9-18 Units by ity of Vitamin D3, 15:46: mouth [place] 25 mcg 50 daily. Medical (1,000 Branch unit) capsule metoprolol 2-0 Yes 100mg Take 100 Un lucy tartrate 25 9-18 mg by ity of mg tablet 15:46: mouth in [place] [id number] the Medical morning Branch and 100 mg in the evening. B Complex 2-0 Yes Take by [employer] [facility] Vitamins 9-18 mouth. ity of tablet 15:46: [address] Branch Cholecalcif 2-0 Yes 1000U Take 1,000 Univers stevan, 9-18 Units by ity of Vitamin D3, 15:46: mouth [place] 25 mcg 50 daily. Medical (1,000 Branch unit) capsule metoprolol 2-0 Yes 100mg Take 100 Un lucy tartrate 25 9-18 mg by ity of mg tablet 15:46: mouth in [facility] 50 the Medical morning Branch and 100 mg in the evening. B Complex 2-0 Yes Take by [facility]ive rs Vitamins 9-18 mouth. ity of tablet 15:46: [address] Branch Cholecalcif 2022-0 Yes 1000U Take 1,000 [facility] stevan, 9-18 Units by ity of Vitamin D3, 15:46: mouth [place] 25 mcg 50 daily. Medical (1,000 Branch unit) capsule metoprolol Yes 100mg Take 100 Un lucy tartrate 25 9-18 mg by ity of mg tablet 15:46: [place] 50 the Medical morning Branch and 100 mg in the evening. B Complex Yes Take by [facility] Vitamins 9-18 mouth. ity of tablet 15:46: [place] [address] Medical Branch Cholecalcif Yes 1000U Take 1,000 Univers stevan, 9-18 Units by ity of Vitamin D3, 15:46: mouth [place] 25 mcg 50 daily. Medical (1,000 Branch unit) capsule metoprolol Yes 100mg Take 100 Un lucy tartrate 25 9-18 mg by ity of mg tablet 15:46: mouth in [place] 50 the Medical morning Branch and 100 mg in the evening. B Complex Yes Take by [facility] Vitamins 9-18 mouth. ity of tablet 15:46: [place] [address] Medical Branch gabapentin 2021- No 300mg Take 300 U nivers (NEURONTIN) 12-16 mg by ity of 300 mg 12:47: [...] y of mg tablet 12:47: 00:00 (two) [place] 26 :00 times Medical daily. Branch ferrous 2021- No 325mg Take 325 Univ ers sulfate 325 9-18 09-18 mg by ity of mg (65 mg 12:47: 00:00 mouth [place] iron) SR 26 :00 daily with Medic al capsule breakfast. Branch furosemide 2021- No [id number] 40mg Take 1 [facility] 40 mg 9-18 10-19 tablet by ity of tablet 00:00: 04:59 mouth [place] 00 :00 every Medical morning Branch and evening for 30 days. furosemide 2021- No [id number] 40mg Take 1 [facility] 40 mg 9-18 10-19 tablet by ity of tablet 00:00: 04:59 mouth [place] 00 :00 every Medical morning Branch and evening for 30 days. furosemide 2021- No [id number] 40mg Take 1 [facility] 40 mg 9-18 10-19 tablet by ity of tablet 00:00: 04:59 mouth [place] 00 :00 every Medical morning Branch and evening for 30 days. furosemide 2021- No [id number] 40mg Take 1 [facility] 40 mg 9-18 10-19 tablet by ity of tablet 00:00: 04:59 mouth [place] 00 :00 every Medical morning Branch and evening for 30 days. furosemide 2021- No [id number] 40mg Take 1 [facility] 40 mg 9-18 10-19 tablet by ity of tablet 00:00: 04:59 mouth [place] 00 :00 every Medical morning Branch and evening for 30 days. furosemide 2021- No [id number] 40mg Take 1 [facility] 40 mg 9-18 10-19 tablet by ity of tablet 00:00: 04:59 mouth [place] 00 :00 every Medical morning Branch and evening for 30 days. furosemide 2021- No [id number] 40mg Take 1 [facility] 40 mg 9-18 10-19 tablet by ity of tablet 00:00: 04:59 mouth [place] 00 :00 every Medical morning Branch and evening for 30 days. furosemide 2021- No [id number] 40mg Take 1 [facility] 40 mg 9-18 10-19 tablet by ity of tablet 00:00: 04:59 mouth [place] 00 :00 every Medical morning Branch and evening for 30 days. furosemide 2021- No [id number] 40mg Take 1 [facility] 40 mg 9-18 10-19 tablet by ity of tablet 00:00: 04:59 mouth [place] 00 :00 every Medical morning Branch and evening for 30 days. furosemide 2021- No [id number] 40mg Take 1 [facility] 40 mg 9-18 10-19 tablet by ity of tablet 00:00: 04:59 mouth [place] 00 :00 every Medical morning Branch and evening for 30 days. furosemide 2021- No [id number] 40mg Take 1 [facility] 40 mg 9-18 10-19 tablet by ity of tablet 00:00: 04:59 mouth [place] 00 :00 every Medical morning Branch and evening for 30 days. donepeziL Yes 5mg 5 mg, Univers (ARICEPT) 12-15 Oral, QHS, ity of tablet 5 mg 02:00: First dose [place] 00 on Fri Medical 12/14/21 at Branch 2100, Until Discontinu ed, Routine atorvastati Yes 40mg 40 mg, Univ ers n (LIPITOR) 12-15 Oral, QHS, it y of tablet 40 [...] [place] 00 First dose Medical on [facility] Branch 12/14/21 at 1545, Until Discontinu ed, Routine acetaminoph Yes 650mg 650 mg, Un lucy en 12-14 Oral, ity of (TYLENOL) 20:39: Q6HPRN, [place] tablet 650 41 Starting Medic al mg on Fri Branch 12/14/21 at 1539, Until Discontinu ed, Routine, Pain (scale 4-6) traMADoL 2021-0 Yes 50mg 50 mg, Univers (ULTRAM) 12-14 Oral, ity of tablet 50 20:39: Q6HPRN, [place] mg 08 Starting Medical on Fri Branch 12/14/21 at 1539, Until Discontinu ed, Routine, Pain (scale 7-10) Saline 2021-0 Yes [id number] 6mL 6 mL, Univer s Bubble 12-14 Injection, ity of Study 14:05: SEE-INSTRU [place] 53 CTIONS, Medical Starting Branch on Fri12/14/21 at 0905, Until Discontinu ed, Routine citalopram 2021-0 Yes 20mg 20 mg, Unive rs (CELEXA) 12-14 Oral, ity of tablet 20 14:00: DAILY, [place] mg 00 First dose Medical on Fri Branch 12/14/21 at 0900, Until Discontinu ed, Routine enoxaparin 0 Yes 40mg 40 mg, Unive rs (LOVENOX) 12-14 Subcutaneo ity of injection 14:00: us, Q24H, [place] 40 mg 00 First dose Medical on Fri Branch 12/14/21 at 0900, Until Discontinu ed, Routine ergocalcife 2021-0 Yes [id number] 50,000 Un lucy rol 12-14 Units, ity of (vitamin 14:00: Oral, [place] d2) 00 QWEEKLY, Medical (CALCIFEROL First dose Br anch ) capsule on Fri 50,000 12/14/21 at Units 0900, Until Discontinu ed, Routine pantoprazol 2021-0 Yes 40mg 40 mg, Univ ers e 12-14 Oral, ity of (PROTONIX) 14:00: DAILY, [place] EC tablet 00 First dose Medi manny 40 mg on Fri Branch 12/14/21 at 0900, Until Discontinu ed, Routine lactobacill 2021-0 Yes .5mg 0.5 mg, Uni vers us 12-14 Oral, BID, ity of acidophilus 13:00: First dose [place] tablet 0.5 00 on Fri Medical mg 12/14/21 at Branch 0800, Until Discontinu ed, Routine metoprolol 2022-0 Yes 100mg 100 mg, Uni vers tartrate 12-14 Oral, BID, ity o f (LOPRESSOR) 13:00: First dose [place] tablet 100 00 on Fri Medical mg 12/14/21 at Branch 0800, Until Discontinu ed, Routine carbidopa-l 0 Yes 1{tbl} 1 tablet, Univers evodopa 12-14 Oral, TID, ity of (SINEMET-25 13:00: First dose [place] /100) 00 on Fri Medical 25-100 mg 12/14/21 at [facility] ch tablet 1 0800, tablet Until Discontinu ed, Routine furosemide 0 Yes 20mg 20 mg, Unive rs (LASIX) 12-14 Slow IV ity of injection 13:00: [place] TID, [place] 20 mg 00 First dose Medical (after Branch last reorder) on Fri12/14/21 at 0800, Until Discontinu ed, ARELI levothyroxi Yes 100ug 100 mcg, U nivers ne 12-14 Oral, ity of (SYNTHROID) 11:00: QAM-0600, [place] tablet 100 00 First dose Med ical mcg on Fri Branch 12/14/21 at 0600, Until Discontinu ed, Routine cloNIDine 2021- No .1mg 0.1 mg, Univ ers (CATAPRES) 12-14 Oral, ity of tablet 0.1 01:30: 01:33 ONCE, 1 [place] mg 00 :00 dose, On Medical [place] Branch 12/13/21 at 2030, STAT pantoprazol Yes 40mg Take 40 mg [facility] e 12-14 by mouth. [place] (PROTONIX) 00:00: of 40 MG 00 Medicin tablet e pantoprazol 0 Yes 40mg Take 40 mg [facility] e 12-14 by mouth. [place] (PROTONIX) 00:00: of 40 MG 00 Medicin tablet e acetaminoph 2021- No 650mg 650 mg, U nivers en 12-14 Oral, ity of (TYLENOL) 00:00: 00:02 ONCE, 1 [place] tablet 650 00 :00 dose, On Medic al mg [facility] Branch 12/13/21 at 1900, ARELI metoprolol No 25mg 25 mg, Univ ers tartrate 12-14 Oral, ity of (LOPRESSOR) 00:00: 23:29 ONCE, 1 [place] tablet 25 00 :00 dose, On Medica l mg [place] Branch 12/13/21 at 1900, Routine furosemide No 40mg 40 mg, IV U nivers (LASIX) 12-13 Push, ity of injection 22:30: 22:49 ONCE, 1 [place] 40 mg 00 :00 dose, On Medical [place] Branch 12/13/21 at 1730, ARELI iopamidol No [id number] 74mL 74 mL, U nivers (ISOVUE 12-13 Intravenou ity o f 370-500 mL) 22:30: 22:30 s, ONCE, 1 [place] injection 00 :00 dose, On Medica l 74 mL [place] Branch 12/13/21 at 1730, Routine famotidine No 20mg 20 mg, Univ ers (PEPCID 12-13 Slow IV ity of (PF)) 21:00: 20:28 Push, [place] injection 00 :00 ONCE, 1 Medical 20 mg dose, On Branch [place] 12/13/21 at 1600, Routine maalox:diph No 15mL 15 mL, Uni vers enhydrAMINE 12-13 Oral, ity of :lidocaine 20:00: 20:28 ONCE, 1 [place] 2 % viscous 00 :00 dose, On Medi manny 1:1:1 [place] Branch (FIRST-MOUT 12/13/21 at [facility]) 1500, oral Routine suspension 15 mL donepezil Yes 5mg Take 5 mg [facility] (ARICEPT) 11-28 by mouth Roseanna ege MG tablet 09:50: nightly. of 56 Medicin e olanzapine 2021- No 1{tbl} 1 Tablet. [facility] (ZYPREXA) 5 11-28 College MG tablet 09:50: 00:00 of 55 :00 Medicin e Mirabegron 2021- No 1{tbl} 1 Tablet. [facility] ER 11-28 College (MYRBETRIQ) 09:50: 00:00 of 25 MG TB24 37 :00 Medicin e diphenhydrA 2021- No 25mg Take 25 mg [facility] MINE 11-28 by mouth [place] (BENADRYL) 09:50: 00:00 every 6 of 25 MG 31 :00 hours as Medicin tablet needed for e Sleep. acetaminoph 2021- No Every 6 [facility] en-codeine 11-28 hours. Colleg e (TYLENOL 09:50: 00:00 of #3) 300-30 25 :00 Medicin MG per e tablet atorvastati 0 Yes [id number] TAKE 1 [facility] n (LIPITOR) 8-31 TABLET BY Col lege 40 MG 00:00: MOUTH of tablet 00 EVERYDAY Medicin AT BEDTIME e metoprolol 0 Yes [id number] 100mg Take 1 Jak (LOPRESSOR) 8-31 Tablet by Col lege 100 MG 00:00: mouth two of tablet 00 times Medicin daily. e atorvastati 0 Yes [id number] TAKE 1 Jak n (LIPITOR) 8-31 TABLET BY Col lege 40 MG 00:00: MOUTH of tablet 00 EVERYDAY Medicin AT BEDTIME e metoprolol 0 Yes [id number] 100mg Take 1 Jak (LOPRESSOR) 8-31 Tablet by Col lege 100 MG 00:00: mouth two of tablet 00 times Medicin daily. e atorvastati 0 Yes [id number] TAKE 1 [facility] n (LIPITOR) 8-31 TABLET BY Col lege 40 MG 00:00: MOUTH of tablet 00 EVERYDAY Medicin AT BEDTIME e metoprolol 0 Yes [id number] 100mg Take 1 Jak (LOPRESSOR) 8-31 Tablet by Col lege 100 MG 00:00: mouth two of tablet 00 times Medicin daily. e carbidopa-l Yes TAKE 1 [place] [facility] evodopa 8-18 TABLET BY [place] (SINEMET, 00:00: MOUTH of DHIVY) 00 TWICE A Medicin 25-100 MG DAY FOR 30 e per tablet DAYS carbidopa-l 0 Yes TAKE 1 [place] [facility] evodopa 8-18 TABLET BY [place] (SINEMET, 00:00: MOUTH of DHIVY) 00 TWICE A Medicin 25-100 MG DAY FOR 30 e per tablet DAYS carbidopa-l 2021-0 Yes TAKE 1 [place] [facility] evodopa 8-18 TABLET BY [place] (SINEMET, 00:00: MOUTH of DHIVY) 00 TWICE A Medicin 25-100 MG DAY FOR 30 e per tablet DAYS Macrobid Macrobid 2021-0 2022- No QD Macrobid 100 MG 100 MG 10-29 100 MG 00:00: 00:00 00 :00 Macrobid Macrobid 2021-0 2022- No QD Macrobid 100 MG 100 MG 10-29 100 MG 00:00: 00:00 00 :00 Macrobid Macrobid 2021-0 2022- No QD Macrobid 100 MG 100 MG 10-29 100 MG 00:00: 00:00 00 :00 Macrobid Macrobid 2-0 2022- No QD Macrobid 100 MG 100 MG 10-29 100 MG 00:00: 00:00 00 :00 Macrobid Macrobid 2-0 2022- No QD Macrobid 100 MG 100 MG 10-29 100 MG 00:00: 00:00 00 :00 Macrobid Macrobid 2-0 2022- No QD Macrobid 100 MG 100 MG 10-29 100 MG 00:00: 00:00 00 :00 Macrobid Macrobid 2-0 2022- No QD Macrobid 100 MG 100 MG 10-29 100 MG 00:00: 00:00 00 :00 Macrobid Macrobid 2022-0 2022- No QD Macrobid 100 MG 100 MG 10-29 100 MG 00:00: 00:00 00 :00 Macrobid Macrobid 2022-0 2022- No QD Macrobid 100 MG 100 MG 10-29 100 MG 00:00: 00:00 00 :00 Macrobid Macrobid 2022-0 2022- No QD Macrobid 100 MG 100 MG 10-29 100 MG 00:00: 00:00 00 :00 Macrobid Macrobid 2022-0 2022- No QD Macrobid 100 MG 100 MG 10-29 100 MG 00:00: 00:00 00 :00 Bactrim DS Bactrim DS 2021- No 1{table BID Bactrim DS 800-160 MG 800-160 MG 10-29 t} 800-160 MG 00:00: 00:00 00 :00 Bactrim DS Bactrim DS 2021- No 1{table BID Bactrim DS 800-160 MG 800-160 MG 10-29 t} 800-160 MG 00:00: 00:00 00 :00 Bactrim DS Bactrim DS 2021- No 1{table BID Bactrim DS 800-160 MG 800-160 MG 10-29 t} 800-160 MG 00:00: 00:00 00 :00 chlorthalid 2021- No 25mg Take 1 [facility] one 09-07 Tablet by [place] (HYGROTEN) 00:00: 00:00 mouth of 25 MG 00 :00 daily. Medicin tablet e metoprolol 2021- No [id number] TAKE 1 [facility] (LOPRESSOR) 08-31 TABLET BY Co llege 100 MG 00:00: 00:00 MOUTH of tablet 00 :00 TWICE A Medicin DAY e meclizine No 25mg 25 mg, Unive rs (TRAVEL-EAS 08-26 Oral, ity of E 18:15: 17:10 ONCE, 1 [place] (MECLIZINE) 00 :00 dose, On Medi manny ) tablet 25 [place] mg 08/26/21 at 1315, ARELI NaCl 0.9% No 1000mL at 999 Uni vers (NS) bolus 08-26 mL/hr, ity of infusion 17:30: 18:10 1,000 mL, Franki as 1,000 mL 00 :00 IV Medical Infusion, Branch ONCE, 1 dose, On 08/26/21 at 1230, ARELI hydrochloro 2021- No TAKE 1 [facility] thiazide 08-24 CAPSULE BY Roseanna so (MICROZIDE) 11:14: 00:00 MOUTH of 12.5 MG 36 :00 EVERY DAY Medicin capsule e terbinafine 2021- No 1{tbl} 1 Tablet. [facility] (LAMISIL) 08-24 [place] 250 MG 10:16: 00:00 of tablet 21 :00 Medicin e Prenat-Meth 2021- No as [facility] ylfol-Chol- 08-24 directed Col [facility]ge Fish Oil 10:15: 00:00 of ( + 54 :00 Medicin COMPLETE e MULTI) 0.267 & 373 MG THPK acetaminoph Yes Every 6 Gray inga en-codeine 5-27 hours. [place] (TYLENOL 09:56: of #3) 300-30 08 Medicin MG per e tablet Mirabegron Yes 1{tbl} 1 Tablet. [facility] ER 08-24 [place] (MYRBETRIQ) 09:56: of 25 MG TB24 08 Medicin e olanzapine 0 Yes 1{tbl} 1 Tablet. [facility] (ZYPREXA) 5 08-24 College MG tablet 09:56: of 08 Medicin e diphenhydrA Yes 25mg Take 25 mg [facility] MINE 5-27 by mouth [place] (BENADRYL) 09:52: every 6 of 25 MG 37 hours as Medicin tablet needed for e Sleep. donepezil Yes 5mg Take 5 mg [facility] inga (ARICEPT) 5 -27 by mouth Roseanna ege MG tablet 09:52: nightly. of 37 Medicin e chlorthalid Yes 25mg Take 1 [facility] one 5-27 Tablet by [place] (HYGROTEN) 00:00: mouth of 25 MG 00 daily. Medicin tablet e Bactrim DS Bactrim DS 2021- No 1{table BID Bactrim DS 800-160 MG 800-160 MG 5-18 05-28 t} 800-160 MG 00:00: 00:00 00 :00 Bactrim DS Bactrim DS 2021-0 2021- No 1{table BID Bactrim DS 800-160 MG 800-160 MG 5-18 05-28 t} 800-160 MG 00:00: 00:00 00 :00 sulfamethox 2022-0 2022- No TAKE 1 [facility] azole-trime 08-15 TABLET BY Co margejohnpepe thoprim 00:00: 00:00 MOUTH of (BACTRIM 00 :00 TWICE A Medicin DS, SEPT DAY FOR 10 e DS) 800-160 DAYS MG per tablet nystatin Yes 1 [facility] (MYCOSTATIN 07-31 APPLICATIO Co cr ) cream 00:00: N TO of 00 AFFECTED Medicin AREA/ SKIN e FOLDS EXTERNALLY TWICE A DAY 30 DAYS triamcinolo 2021-0 Yes 1 [facility] 07-31 APPLICATIO [place] (KENALOG) 00:00: N TO of 0.1 % cream 00 AFFECTED Medi jose carlos AREA e NEEDED FOR ITCHING EXTERNALLY TWICE A DAY 30 DAYS nystatin 202- No 1 [facility] (MYCOSTATIN 07-31 APPLICATIO C ollege ) cream 00:00: 00:00 N TO of 00 :00 AFFECTED Medicin AREA/ SKIN e FOLDS EXTERNALLY TWICE A DAY 30 DAYS triamcinolo 202- No 1 [facility] rikki 07-31 APPLICATIO [place] (KENALOG) 00:00: 00:00 N TO of 0.1 % cream 00 :00 AFFECTED Medi jose carlos AREA e NEEDED FOR ITCHING EXTERNALLY TWICE A DAY 30 DAYS Alfuzosin 2021-2021- No 1 tablet [facility] HCl 10 MG 06-27 immediatel [facility] TB24 00:00: 04:59 y after of 00 :00 the same Medicin meal e Alfuzosin 2021-2021- No 1 tablet [facility] HCl 10 MG 06-27 immediatel [facility] TB24 00:00: 04:59 y after of 00 :00 the same Medicin meal e Alfuzosin Alfuzosin 2021-0 2021- No 1{table QD Alfuzosin HCl ER 10 HCl ER 10 06-27 t_immed HCl ER 10 MG MG 00:00: 00:00 iately_ MG 00 :00 after_t he_same _meal} Alfuzosin Alfuzosin 2021-0 202- No 1{table QD Alfuzosin HCl ER 10 HCl ER 10 06-27 t_immed HCl ER 10 MG MG 00:00: 00:00 iately_ MG 00 :00 after_t he_same _meal} Alfuzosin Alfuzosin 2021-0 2- No 1{table QD Alfuzosin HCl ER 10 HCl ER 10 06-27 t_immed HCl ER 10 MG MG 00:00: 00:00 iately_ MG 00 :00 after_t he_same _meal} Alfuzosin Alfuzosin 2021-2- No 1{table QD Alfuzosin HCl ER 10 HCl ER 10 06-27 t_immed HCl ER 10 MG MG 00:00: 00:00 iately_ MG 00 :00 after_t he_same _meal} Alfuzosin Alfuzosin 2021-2- No 1{table QD Alfuzosin HCl ER 10 HCl ER 10 06-27 t_immed HCl ER 10 MG MG 00:00: 00:00 iately_ MG 00 :00 after_t he_same _meal} Alfuzosin Alfuzosin 2021-2- No 1{table QD Alfuzosin HCl ER 10 [...] 00 :00 after_t he_same _meal} Alfuzosin Alfuzosin 2021-2- No 1{table QD Alfuzosin HCl ER 10 [...] Alfuzosin HCl ER 10 HCl ER 10 3-30 09-26 t_immed HCl ER 10 MG MG 00:00: 00:00 iately_ MG 00 :00 after_t he_same _meal} hydrochloro 0 2021- No 12.5mg Take 12.5 Jak thiazide 3-08 03-08 mg by [place] (HYDRODIURI 11:01: 00:00 mouth of L) 25 MG 55 :00 daily. Medicin tablet e Prenat-Meth Yes as Jak ylfol-Chol- 3-08 directed Roseanna ege Fish Oil 10:41: of ( + 59 Medicin COMPLETE e MULTI) 0.267 & 373 MG THPK diphenhydrA Yes 25mg Take 25 mg Jak MINE 3-08 by mouth [place] (BENADRYL) 10:41: every 6 of 25 MG 58 hours as Medicin tablet needed for e Sleep. donepezil Yes 5mg Take 5 mg [facility] (ARICEPT) 5 -08 by mouth Roseanna ege MG tablet 10:41: nightly. of 58 Medicin e atorvastati 0 Yes [id number] TAKE 1 Jak n (LIPITOR) 3-08 TABLET BY [facility]ge 40 MG 00:00: MOUTH of tablet 00 EVERYDAY Medicin AT BEDTIME e metoprolol Yes [id number] TAKE 1 [facility] (LOPRESSOR) 3-08 TABLET BY [facility] 100 MG 00:00: MOUTH of tablet 00 TWICE A Medicin DAY e chlorthalid Yes 25mg Take 1 [facility] one 3-08 Tablet by [place] (HYGROTEN) 00:00: mouth of 25 MG 00 daily. Medicin tablet e atorvastati 0 Yes [id number] TAKE 1 [facility] n (LIPITOR) 3-08 TABLET BY Col [facility]ge 40 MG 00:00: MOUTH of tablet 00 EVERYDAY Medicin AT BEDTIME e metoprolol 0 Yes [id number] TAKE 1 [facility] (LOPRESSOR) 3-08 TABLET BY [facility] 100 MG 00:00: MOUTH of tablet 00 TWICE A Medicin DAY e atorvastati 0 2021- No [id number] TAKE 1 Jak n (LIPITOR) 3-08 08- TABLET BY Mt [facility] 40 MG 00:00: 00:00 MOUTH of tablet 00 :00 EVERYDAY Medicin AT BEDTIME e chlorthalid 2021-0 2021- No 25mg Take 1 [facility] one 06-05 Tablet by [place] (HYGROTEN) 00:00: 00:00 mouth of 25 MG 00 :00 daily. Medicin tablet e estradiol 2021-0 Yes [facility] (ESTRACE) 06-01 [place] 0.1 MG/GM 00:00: of vaginal 00 Medicin cream e Estradiol Estradiol 2021-0 No Estradiol 0.1 MG/GM [...] 3-04 0.1 MG/GM 00:00: 00 Estradiol Estradiol 2-0 No Estradiol 0.1 MG/GM 0.1 MG/GM 3-04 0.1 MG/GM 00:00: 00 Estradiol Estradiol 2-0 No Estradiol 0.1 MG/GM 0.1 MG/GM 3-04 0.1 MG/GM 00:00: 00 Estradiol Estradiol 2-0 No Estradiol 0.1 MG/GM 0.1 MG/GM 3-04 0.1 MG/GM 00:00: 00 Estradiol Estradiol 2-0 No Estradiol 0.1 MG/GM 0.1 MG/GM 3-04 0.1 MG/GM 00:00: 00 Estradiol Estradiol 2-0 No Estradiol 0.1 MG/GM 0.1 MG/GM 3-04 0.1 MG/GM 00:00: 00 Estradiol Estradiol 2-0 No Estradiol 0.1 MG/GM 0.1 MG/GM 3-04 [...] MG/GM 3-04 0.1 MG/GM 00:00: 00 estradiol 2021-0 2021- No [facility] (ESTRACE) 3-04 - College 0.1 MG/GM 00:00: 00:00 of vaginal 00 :00 Medicin cream e nitrofurant 0 Yes TAKE 1 [facility] oin, 2-28 CAPSULE BY College macrocrysta 00:00: MOUTH of l-monohydra 00 EVERY 12 Medi jose carlos te, HOURS WITH e (MACROBID) FOOD FOR 7 100 MG DAYS capsule nitrofurant Yes TAKE 1 [facility] oin, 2-28 CAPSULE BY [place] macrocrysta 00:00: MOUTH of l-monohydra 00 EVERY 12 Medi jose carlos te, HOURS WITH e (MACROBID) FOOD FOR 7 100 MG DAYS capsule nitrofurant Yes 100mg Take 100 [facility] oin, 2-28 mg by [place] macrocrysta 00:00: mouth of l-monohydra 00 daily. For Me dicin te, suppressiv e (MACROBID) e abx 100 MG coverage - capsule started in 08/2021 nitrofurant Yes 100mg Take 100 [facility] oin, 2-28 mg by [place] macrocrysta 00:00: mouth of l-monohydra 00 daily. For [...] No QD predniSONE 10 MG 10 MG 05-28- 10 MG 00:00: 00:00 00 :00 predniSONE predniSONE 2021-2021- No QD predniSONE 10 MG 10 MG 05-28- 10 MG 00:00: 00:00 00 :00 predniSONE predniSONE 2021- No QD predniSONE 10 MG 10 MG 05-28- 10 MG 00:00: 00:00 00 :00 metoprolol 2021- No [id number] TAKE 1 [facility] (LOPRESSOR) 05-22 TABLET BY Co llege 100 MG 00:00: 00:00 MOUTH of tablet 00 :00 TWICE A Medicin DAY e atorvastati 2021- No [id number] TAKE 1 [facility] n (LIPITOR) 05-18 TABLET BY Co llege 40 MG 00:00: 00:00 MOUTH of tablet 00 :00 EVERYDAY Medicin AT BEDTIME e Ciprofloxac Ciprofloxac 2020-03- No 1{table BID Ciprofloxa in HCl 500 in HCl 500 0-15 10-20 t} jose carlos HCl MG MG 00:00: 00:00 500 MG 00 :00 atorvastati 2020- No 40mg Take 40 mg [facility] n (LIPITOR) 4-14 04-14 by mouth [facility] 40 MG 17:24: 00:00 at of tablet 11 :00 bedtime. Medicin e Prenat-Meth Yes as [facility] ylfol-Chol- 4-14 directed Roseanna ege Fish Oil 16:56: of ( + 40 Medicin COMPLETE e MULTI) 0.267 & 373 MG THPK donepezil Yes 5mg Take 5 mg [facility] inga (ARICEPT) 5 4-14 by mouth Roseanna ege MG tablet 16:56: nightly. of 40 Medicin e diphenhydrA Yes 25mg Take 25 mg [facility] MINE 4-14 by mouth College (BENADRYL) 16:53: every 6 of 25 MG [...] escitalopra 2020- No 20mg Take 20 mg [facility] m (LEXAPRO) -14 -14 by mouth [facility] 20 MG 16:52: 00:00 daily. of tablet 06 :00 Medicin e Cholecalcif 2020- No Take by Kurt georges stevan 07-12-14 mouth. [place] (VITAMIN 16:51: 00:00 of D3) 1000 48 :00 Medicin UNITS TABS e amlodipine 2020- No 5mg Take 5 mg [facility] (NORVASC) 5 -12 07-14 by mouth Col [facility]ge MG tablet 16:51: 00:00 daily. of 32 :00 Medicin e hydrochloro Yes 12.5mg Take 12.5 Jak thiazide 4-14 mg by [place] (HYDRODIURI 16:47: mouth of L) 25 MG 54 daily. Medicin tablet e atorvastati Yes [id number] 40mg Take 1 Jak n (LIPITOR) 4-14 Tablet by Col [facility] 40 MG 00:00: mouth at of tablet 00 bedtime. Medicin e metoprolol Yes [id number] 100mg Take 1 Jak (LOPRESSOR) 4-14 Tablet by [facility] 100 MG 00:00: mouth two of tablet 00 times Medicin daily. e metoprolol 2020- No 100mg Take 100 [facility] (LOPRESSOR) 4-13 04-14 mg by Colleg e 100 MG 00:00: 00:00 mouth two of tablet 00 :00 times Medicin daily. e Terbinafine Terbinafine 0 2020- No [facility] [place] 1 tablet Common HCl HCl 9-17 12-09 [facility] 00:00: 00:00 - [facility] 00 :00 [facility] CARBIDOPA-L 2018-03 Yes TAKE 1 Univ ers EVODOPA 1-11 TABLET BY ity of 25-100 mg 00:00: MOUTH FOUR [place] tablet 00 TIMES A Medical DAY Branch CARBIDOHI-L 2018-03 Yes TAKE 1 Univ ers EVODOPA 1-11 TABLET BY ity of 25-100 mg 00:00: MOUTH FOUR [place] tablet 00 TIMES A Medical DAY Branch [facility] 2018-03 Yes TAKE 1 Univ ers EVODOPA 1-11 TABLET BY ity of 25-100 mg 00:00: MOUTH FOUR [place] tablet 00 TIMES A Medical DAY Branch [facility] 2018-03 Yes TAKE 1 Univ ers EVODOPA 1-11 TABLET BY ity of 25-100 mg 00:00: MOUTH FOUR [place] tablet 00 TIMES A Medical DAY Branch CARBIDOPA-L 2018-03 Yes TAKE 1 Univ ers EVODOPA 1-11 TABLET BY ity of 25-100 mg 00:00: MOUTH FOUR [place] tablet 00 TIMES A Medical DAY Branch [facility]03 Yes TAKE 1 Univ ers EVODOPA 1-11 TABLET BY ity of 25-100 mg 00:00: MOUTH FOUR [place] tablet 00 TIMES A Medical DAY Branch [facility] 2018-03 Yes TAKE 1 Univ ers EVODOPA 1-11 TABLET BY ity of 25-100 mg 00:00: MOUTH FOUR [place] tablet 00 TIMES A Medical DAY Branch [facility] 2018-03 Yes TAKE 1 Univ ers EVODOPA 1-11 TABLET BY ity of 25-100 mg 00:00: MOUTH FOUR [place] tablet 00 TIMES A Medical DAY Branch [facility]-L 2018-03 Yes TAKE 1 Univ ers EVODOPA 1-11 TABLET BY ity of 25-100 mg 00:00: MOUTH FOUR [place] tablet 00 TIMES A Medical DAY Branch [facility] 2018-03 Yes TAKE 1 Univ ers EVODOPA 1-11 TABLET BY ity of 25-100 mg 00:00: MOUTH FOUR [place] tablet 00 TIMES A Medical DAY Branch [facility] 2018-03 Yes TAKE 1 Univ ers EVODOPA [...] tablet 00 TIMES A Medical DAY Branch [facility] 2018-03 Yes TAKE 1 Univ ers EVODOPA 1-11 TABLET BY ity of 25-100 mg 00:00: MOUTH FOUR [place] tablet 00 TIMES A Medical DAY Branch [facility] 2018-03 Yes TAKE 1 Univ ers EVODOPA 1-11 TABLET BY ity of 25-100 mg 00:00: MOUTH FOUR [place] tablet 00 TIMES A Medical DAY Branch [facility] 2018-03 Yes TAKE 1 Univ ers EVODOPA 1-11 TABLET BY ity of 25-100 mg 00:00: MOUTH FOUR [place] tablet 00 TIMES A Medical DAY Branch [facility] 2018-03 Yes TAKE 1 Univ ers EVODOPA 1-11 TABLET BY ity of 25-100 mg 00:00: MOUTH FOUR [place] tablet 00 TIMES A Medical DAY Branch [facility] 2018-03 Yes TAKE 1 Univ ers EVODOPA 1-11 TABLET BY ity of 25-100 mg 00:00: MOUTH FOUR [place] tablet 00 TIMES A Medical DAY Branch [facility] Yes TAKE 1 Univ ers EVODOPA 1-11 TABLET BY ity of 25-100 mg 00:00: MOUTH FOUR [place] tablet 00 TIMES A Medical DAY Branch [facility] 2018-03 Yes TAKE 1 Univ ers EVODOPA 1-11 TABLET BY ity of 25-100 mg 00:00: MOUTH FOUR [place] tablet 00 TIMES A Medical DAY Branch [facility] 2018-03 Yes TAKE 1 Univ ers EVODOPA 1-11 TABLET BY ity of 25-100 mg 00:00: MOUTH FOUR [place] tablet 00 TIMES A Medical DAY Branch [facility] 2018-03- No TAKE 1 Uni vers EVODOPA 1-11 -21 TABLET BY ity of 25-100 mg 00:00: 00:00 MOUTH FOUR [place] tablet 00 :00 TIMES A Medical DAY Branch CARBIDOPA-L 2018-03- No TAKE 1 Uni vers EVODOPA [...] by mouth ity of (LEXAPRO) 20:29: daily. [place] 20 mg 27 Medical tablet Branch metoprolol [...] ity of 2 mg tablet 20:21: daily. [address] Branch pantoprazol 2017-03 Yes 40mg Take [...] ity of 2 mg tablet 20:21: daily. [address] Branch pantoprazol 2017-03 Yes 40mg Take [...] by mouth ity of (LEXAPRO) 14:29: daily. [place] 20 mg 27 Medical tablet Branch escitalopra 2017-03 Yes 20mg Take 20 mg Univers m oxalate 1-16 by mouth ity of (LEXAPRO) 14:29: daily. [place] 20 mg 27 Medical tablet Branch escitalopra 2017-03 Yes 20mg Take 20 mg Univers m oxalate 1-16 by mouth ity of (LEXAPRO) 14:29: daily. [place] 20 mg 27 Medical tablet [...] of COMPLEX 1) 14:26: [place] tablet 35 [facility] [place] [facility] diphenhydrA 2017-03 Yes 25mg Take 25 mg [...] COMPLEX 1) 14:26: [place] tablet 35 Medical [place] diphenhydrA 2017-03 Yes 25mg Take 25 mg [...] ity of 2 mg tablet 14:21: daily. [address] pantoprazol 2017-03 Yes 40mg Take 40 [...] 3 [place] capsule 36 (three) Medical times [place] daily. atorvastati 2017-03 Yes 40mg Take 40 [...] ity of 2 mg tablet 14:21: daily. [address] pantoprazol 2017-03 Yes 40mg Take 40 [...] by ity of Vitamin D3, 14:21: mouth [place] (VITAMIN 36 daily. Medical D3) 1,000 Branch [...] 2020- No TAKE 1 [facility] (DITROPAN) 11-0414 TABLET Colleg e 5 MG tablet 00:00: [...] metoprolol 2020- No 25mg Take 25 mg Jak (LOPRESSOR) 04-2914 by mouth Col [facility]ge 25 MG 00:00: 00:00 two times of tablet 00 :00 daily. Medicin e galantamine 2020- No [id number] TK 1 T PO [facility] (REMINYL) 4 08-06 BID College MG tablet 00:00: 00:00 of 00 :00 Medicin e nitrofurant 2020- No [id number] TK ONE C [facility] oin 08-06 [place] [facility] [place]OD[place]I 00:00: 00:00 of N) 50 MG 00 :00 Medicin capsule e olanzapine 2020- No [id number] TK 1/2 T [facility] (ZYPREXA) 07-24 PO [facility] 20 MG 00:00: 00:00 of tablet 00 :00 Medicin e levothyroxi Yes [id number] TK 1 T [facility] 3 QD [place] (SYNTHROID) 00:00: of 112 MCG 00 Medicin tablet e levothyroxi Yes [id number] TK 1 T [facility] 3- QD [place] (SYNTHROID) 00:00: of 112 MCG 00 Medicin tablet e levothyroxi Yes [id number] TK 1 T PO [facility] 3- QD [place] (SYNTHROID) 00:00: of 112 MCG 00 Medicin tablet e levothyroxi Yes [id number] TK 1 T [facility] 3- QD [place] (SYNTHROID) 00:00: of 112 MCG 00 Medicin tablet e levothyroxi Yes [id number] TK 1 T [facility] 3- QD [place] (SYNTHROID) 00:00: of 112 MCG 00 Medicin tablet e levothyroxi Yes [id number] TK 1 T PO [facility] 3-02 QD [place] (SYNTHROID) 00:00: of 112 MCG 00 Medicin tablet e KCL 20 mEq 2015-03 Yes Univers tablet 2-21 ity of 00:00: [place] [facility] KCL 20 mEq 2015-03 Yes Univers tablet 2-21 ity of 00:00: [place] [facility] KCL 20 mEq 2015-03 Yes Univers tablet 2-21 ity of 00:00: [place] [facility] KCL 20 mEq 2015-03 Yes Univers tablet 2-21 ity of 00:00: [place] [id number] [facility] [place] [facility] KCL 20 mEq 2015-03 Yes Univers tablet 2-21 ity of 00:00: [place] [facility] KCL 20 mEq 2015-03- No Univer s tablet 2-21 - ity of 00:00: 00:00 [place] 00 : [facility] galantamine 2015-03 Yes TK 1 T PO U nivers 4 mg tablet 2-20 BID ity of 00:00: [place] [facility] levothyroxi 2015-03 Yes TK 1 T PO U nivers ne 100 mcg 2-20 QD ity of tablet 00:00: [place] [facility] galantamine 2015-03 Yes TK 1 T PO U nivers 4 mg tablet 2-20 BID ity of 00:00: [place] [facility] levothyroxi 2015-03 Yes TK 1 T PO U nivers ne 100 mcg 2-20 QD ity of tablet 00:00: [place] [facility] levothyroxi 2015-03 Yes TK 1 T PO U nivers ne 100 mcg 2-20 QD ity of tablet 00:00: [place] [facility] galantamine 2015-03 Yes TK 1 T PO U nivers 4 mg tablet 2-20 BID ity of 00:00: [place] [facility] levothyroxi 2015-03 Yes TK 1 T PO U nivers ne 100 mcg 2-20 QD ity of tablet 00:00: [place] [facility] levothyroxi 2015-03 Yes TK 1 T PO U nivers ne 100 mcg 2-20 QD ity of tablet 00:00: [place] [facility] levothyroxi 2015-03 Yes TK 1 T PO U nivers ne 100 mcg 2-20 QD ity of tablet 00:00: [place] [facility] levothyroxi 2015-03 Yes TK 1 T PO U nivers ne 100 mcg 2-20 QD ity of tablet 00:00: [place] [facility] levothyroxi 2015-03 Yes TK 1 T PO U nivers ne 100 mcg 2-20 QD ity of tablet 00:00: [place] [facility] levothyroxi 2015-03 Yes TK 1 T PO U nivers ne 100 mcg 2-20 QD ity of tablet 00:00: [place] [facility] levothyroxi 2015-03 Yes TK 1 T PO U nivers ne 100 mcg 2-20 QD ity of tablet 00:00: [address] levothyroxi 2016 Yes TK 1 T PO U nivers ne 100 mcg 2-20 QD ity of tablet 00:00: [place] [facility] galantamine 2015-03 Yes TK 1 T PO U nivers 4 mg tablet 2-20 BID ity of 00:00: [place] [facility] levothyroxi 2015-03 Yes TK 1 T PO U nivers ne 100 mcg 2-20 QD ity of tablet 00:00: [place] [facility] levothyroxi 2015-03 Yes TK 1 T PO U nivers ne 100 mcg 2-20 QD ity of tablet 00:00: [place] [facility] levothyroxi 2015-03 Yes TK 1 T PO U nivers ne 100 mcg 2-20 QD ity of tablet 00:00: [place] [facility] levothyroxi 2015-03 Yes TK 1 T PO U nivers ne 100 mcg 2-20 QD ity of tablet 00:00: [place] [facility] levothyroxi 2015-03 Yes TK 1 T PO U nivers ne 100 mcg 2-20 QD ity of tablet 00:00: [place] [facility] levothyroxi 2015-03 Yes TK 1 T PO U nivers ne 100 mcg 2-20 QD ity of tablet 00:00: [place] [facility] levothyroxi 2015-03 Yes TK 1 T PO U nivers ne 100 mcg 2-20 QD ity of tablet 00:00: [place] [facility] levothyroxi 2015-03 Yes TK 1 T PO U nivers ne 100 mcg 2-20 QD ity of tablet 00:00: [place] [facility] levothyroxi 2015-03 Yes TK 1 T PO U nivers ne 100 mcg 2-20 QD ity of tablet 00:00: [place] [facility] galantamine 2015-03 Yes TK 1 T PO U nivers 4 mg tablet 2-20 BID ity of 00:00: [place] [facility] levothyroxi 2015-03 Yes TK 1 T PO U nivers ne 100 mcg 2-20 QD ity of tablet 00:00: [place] [facility] levothyroxi 2015-03- No TK 1 T PO Univers ne 100 mcg 2-20 02-21 QD ity of tablet 00:00: 00:00 [place] 00 : [facility] [place] [facility] levothyroxi 2015-03- No TK 1 T PO Univers ne 100 mcg 2-20 02-21 QD ity of tablet 00:00: 00:00 00 :00 [facility] [place] [facility] galantamine 2015-03- No TK 1 T PO Univers 4 mg tablet 05-20 BID ity of 00:00: 00:00 [place] 00 :00 [facility] [place] [facility] docusate 2015-03 Yes 100mg Q.5D Take 100 Meth ru sodium 0-[address] (COLACE) 16:21: mouth 2 Hospit a 100 MG 14 (two) l capsule times a day. escitalopra 2015-03 Yes 10mg QD Take 10 mg [facility] (LEXAPRO) 0-[address] 10 MG 16:21: daily. [facility]osp[facility] tablet 14 l gabapentin 2015-03 Yes 300mg Q.[id number] Take 300 [facility] (NEURONTIN) 0-03 [id number] mg by s t 300 MG 16:21: 3D mouth 3 Hospita capsule 14 (three) l times a day. meclizine 2015-03 Yes 25mg Q.[id number] Take 25 mg [facility] (ANTIVERT) 0-03 [id number] by mouth [address] 25 mg 16:21: [...] tablet 14 l gabapentin 2015-03 Yes 300mg Q.[id number] Take 300 [facility] (NEURONTIN) 0-03 [id number] mg by s t 300 MG 16:21: 3D mouth 3 Hospita capsule 14 (three) l times a day. meclizine 2015-03 Yes 25mg Q.[id number] Take 25 mg [facility] (ANTIVERT) 0-03 [id number] by mouth [address] 25 mg 16:21: [...] tablet 14 l gabapentin 2015-03 Yes 300mg Q.[id number] Take 300 [facility] (NEURONTIN) 0-03 [id number] mg by s t 300 MG 16:21: 3D mouth 3 Hospita capsule 14 (three) l times a day. docusate 2015-03 Yes 100mg Q.5D Take 100 Meth ru sodium 0-[address] (COLACE) 16:21: mouth 2 Hospit a 100 MG 14 (two) l capsule times a day. escitalopra 2015-03 Yes 10mg QD Take 10 mg [facility] (LEXAPRO) 0-[address] 10 MG 16:21: daily. Hospita tablet 14 l gabapentin 2015-03 Yes 300mg Q.[id number] Take 300 [facility] (NEURONTIN) 0-03 [id number] mg by s t 300 MG 16:21: 3D mouth 3 Hospita capsule 14 (three) l times a day. meclizine 2015-03 Yes 25mg Q.[id number] Take 25 mg [facility] (ANTIVERT) 0-03 [id number] by mouth [address] 25 mg 16:21: [...] tablet 16:21: nightly. Ho spita 14 l meclizine 2015-03 Yes 25mg Q.[id number] Take 25 mg [facility] (ANTIVERT) 0-03 [id number] by mouth [address] [facility] 25 mg 16:21: [...] tablet 14 l gabapentin 2015-03 Yes 300mg Q.[id number] Take 300 [facility] (NEURONTIN) 0-03 [id number] mg by s t 300 MG 16:21: 3D mouth 3 Hospita capsule 14 (three) l times a day. meclizine 2015-03 Yes 25mg Q.[id number] Take 25 mg [facility] (ANTIVERT) 0-03 [id number] by mouth [address] 25 mg 16:21: [...] Ho spita 14 l donepezil 2020- No [id number] 5mg Take 1 Tab [facility] (ARICEPT) 5 7-15 04-14 by mouth Col lege MG tablet 00:00: 00:00 daily of 00 :00 (with main Medicin meal). e acetaminoph Yes 500mg Take 500 C HI [...] times Center daily. gabapentin 0 Yes 300mg Q.[id number] Take [address] [facility] [address] (NEURONTIN) 7-18 [id number] mg by L ukes 300 MG 14:49: 3D mouth 3 Medical tablet 44 (three) Center times daily. atorvastati 0 Yes 40mg QD Take [address] [facility] [facility] (LIPITOR) 7-18 by mouth Luke s 40 MG 14:49: daily. Medical tablet 44 Center risperiDONE 2013-0 Yes .25mg QD Take 0.[address] (RISPERDAL) 7-18 mg by [facility] 0.25 MG 14:49: mouth Medical tablet 44 nightly. Center rOPINIRole 0 Yes .25mg Q.[id number] Take 0.[address] (REQUIP) 7-18 [id number] mg by Luke s 0.25 MG 14:49: 3D mouth 3 Medical tablet 44 (three) Center times daily. levothyroxi 0 Yes 100ug QD Take 100 C HI [...] 14:49: daily. Medica l 44 Center diphenoxyla 0 Yes 1{tbl} Take [address] te-atropine 7-18 tablet by Charley es (LOMOTIL) 14:49: mouth 4 Medic al 2.5-0.025 44 (four) Center mg per times tablet daily as needed for Diarrhea. pantoprazol 2014-0 Yes 40mg QD Take [address] 7-18 by [facility] (PROTONIX) 14:49: daily. Medic al 40 MG 44 Center tablet digoxin Yes 125ug QD Take 125 [facility] (LANOXIN[facility] 7-[facility] 0.125 MG 14:49: mouth Medical tablet 44 daily. [place] primidone Yes 50mg QD Take [address] (MYSOLINE) 7-18 [facility] 50 MG 14:49: daily. Medical tablet 44 Center metoprolol Yes 50mg Q.5D Take [address] (LOPRESSOR) 7-18 by mouth 2 [facility] k[facility] 50 MG 14:49: (two) Medical tablet 44 times Center daily. gabapentin Yes 300mg Q.[id number] Take [address] [facility] (NEURONTIN) 7-18 [id number] mg by L [facility] 300 MG 14:49: 3D mouth 3 Medical tablet 44 (three) Center times daily. atorvastati Yes 40mg QD Take [address] [facility] (LIPITOR) 7-18 by mouth [facility] 40 MG 14:49: daily. Medical tablet 44 [place] risperiDONE Yes .25mg QD Take 0.[address] [facility] (RISPERDAL) 7-18 mg by [facility] 0.25 MG 14:49: mouth Medical tablet 44 nightly. [place] rOPINIRole Yes .25mg Q.[id number] Take 0.[address] [facility] (REQUIP) 7-18 [id number] mg by [facility] 0.25 MG 14:49: 3D mouth 3 Medical tablet 44 (three) Center times daily. levothyroxi Yes 100ug QD Take [address] [facility] 7-18 mcg by [facility] (SYNTHROID, 14:49: mouth Medic al LEVOTHROID) 44 daily. [place] 100 MCG tablet escitalopra Yes 20mg QD [...] MG 14:49: mouth Medical tablet 44 daily. [place] primidone Yes 50mg QD Take 50 mg [facility] [facility] (MYSOLINE) 7-18 by mouth [facility] 50 MG 14:49: daily. [facility] tablet 44 Center metoprolol Yes 50mg Q.5D Take [address] (LOPRESSOR) 7-18 by mouth 2 Kizzy kes 50 MG 14:49: (two) Medical tablet 44 times Center daily. gabapentin 0 Yes 300mg Q.[id number] Take [address] [facility] (NEURONTIN) 7-18 [id number] mg by L [facility] 300 MG 14:49: 3D mouth 3 Medical tablet 44 (three) Center times daily. atorvastati Yes 40mg QD Take [address] [facility] (LIPITOR) 7-18 by mouth [facility] 40 MG 14:49: daily. Medical tablet 44 Center risperiDONE Yes .25mg QD Take 0.[address] [facility] [facility] (RISPERDAL) 7-18 mg by [facility] 0.25 MG 14:49: mouth Medical tablet 44 nightly. [place] rOPINIRole Yes .25mg Q.[id number] Take 0.[address] (REQUIP) 7-18 [id number] mg by Luke s 0.25 MG 14:49: [...] [facility] en 7-18 mg by Mignon (TYLENOL) 14:49: mouth Medical 500 MG 44 [...] mouth Medical tablet 44 daily. Center primidone 0 Yes 50mg QD Take [address] (MYSOLINE) 7-18 by mouth [facility] 50 MG 14:49: daily. Medical tablet 44 Center metoprolol 0 Yes 50mg Q.5D Take [address] (LOPRESSOR) 7-18 by mouth 2 Kizzy kes 50 MG 14:49: (two) Medical tablet 44 times Center daily. gabapentin 0 Yes 300mg Q.[id number] Take [address] [facility] [address] (NEURONTIN) 7-18 [id number] mg by L ukes 300 MG 14:49: [...] tablet 44 nightly. Center rOPINIRole Yes .25mg Q.[id number] Take 0.[address] [facility] (REQUIP) 7-18 [id number] mg by Luke s 0.25 MG 14:49: [...] 14:49: daily. Medica l 44 Center hydrochloro 0 Yes 25mg QD Take [address] [facility] thiazide 7-18 by mouth [facility] (HYDRODIURI 14:49: daily. Medi manny L) 25 MG 44 Center tablet sertraline 2014-0 Yes 50mg QD Take 50 mg C [...] MG 14:49: mouth Medical tablet 44 daily. [place] primidone Yes 50mg QD Take [address] (MYSOLINE) 7-18 by mouth [facility] 50 MG 14:49: daily. Medical tablet 44 Center metoprolol Yes 50mg Q.5D Take [address] (LOPRESSOR) 7-18 by mouth 2 Kizzy kes 50 MG 14:49: (two) Medical tablet 44 times Center daily. gabapentin Yes 300mg Q.[id number] Take [address] [facility] [address] (NEURONTIN) 7-18 [id number] mg by Damaris bright 300 MG 14:49: 3D mouth 3 Medical tablet 44 (three) Center times daily. atorvastati Yes 40mg QD Take [address] [facility] (LIPITOR) 7-18 by mouth [facility] 40 MG 14:49: daily. Medical tablet 44 [place] risperiDONE Yes .25mg QD Take 0.[address] [facility] (RISPERDAL) 7-18 mg by [facility] 0.25 MG 14:49: mouth Medical tablet 44 nightly. [place] rOPINIRole 0 Yes .25mg Q.[id number] Take 0.[address] [facility] (REQUIP) 7-18 [id number] mg by Luke s 0.25 MG 14:49: [...] mouth Medical tablet 44 daily. Center primidone 0 Yes 50mg QD Take [address] (MYSOLINE) 7-18 by mouth [facility] 50 MG 14:49: daily. Medical tablet 44 Center metoprolol 0 Yes 50mg Q.5D Take [address] (LOPRESSOR) 7-18 by mouth 2 Kizzy kes 50 MG 14:49: (two) Medical tablet 44 times Center daily. gabapentin 0 Yes 300mg Q.[id number] Take [address] [facility] [address] (NEURONTIN) 7-18 [id number] mg by L [facility] 300 MG 14:49: 3D mouth 3 Medical tablet 44 (three) Center times daily. atorvastati Yes 40mg QD Take [address] [facility] (LIPITOR) 7-18 by mouth [facility] 40 MG 14:49: daily. Medical tablet 44 [place] risperiDONE Yes .25mg QD Take 0.[address] [facility] (RISPERDAL) 7-18 mg by [facility] 0.25 MG 14:49: mouth Medical tablet 44 nightly. [place] rOPINIRole Yes .25mg Q.[id number] Take 0.[address] (REQUIP) 7-18 [id number] mg by Luke s 0.25 MG 14:49: 3D mouth 3 Medical tablet 44 (three) Center times daily. levothyroxi Yes 100ug QD Take [address] ne 7-18 mcg by [facility] (SYNTHROID, 14:49: mouth Medic al LEVOTHROID) 44 daily. [place] 100 MCG tablet escitalopra Yes 20mg QD Take [address] [facility] (LEXAPRO) 7-18 by mouth [facility] 20 MG 14:49: daily. Medical tablet 44 [place] naproxen Yes 220mg Take [address] [facility] [address] (ALEVE,ANAP 7-18 mg by [facility] ALBERTO,MIDOL) 14:49: mouth 2 Medi manny 220 MG 44 (two) Center tablet times daily with breakfast and dinner. fenofibrate Yes [facility] (TRICOR) 6-17 [facility] 145 MG 00:00: Medical tablet 00 [place] carvedilol Yes [facility] (COREG) 6-17 [facility] 12.5 MG 00:00: Medical tablet 00 [place] fenofibrate Yes [facility] (TRICOR) 6-17 [facility] 145 MG 00:00: Medical tablet 00 [place] carvedilol Yes [facility] (COREG) 6-17 [facility] 12.5 MG 00:00: Medical tablet 00 [place] fenofibrate Yes [facility] (TRICOR) 6-17 [facility] 145 MG 00:00: Medical tablet 00 [place] carvedilol Yes [facility] (COREG) 6-17 [facility] 12.5 MG 00:00: Medical tablet 00 [place] fenofibrate Yes [facility] (TRICOR) 6-17 [facility] 145 MG 00:00: Medical tablet 00 [place] carvedilol 2013-[address] [facility] [address] (COREG) 6-17 [facility] 12.5 MG 00:00: Medical tablet 00 [place] fenofibrate 2013-[address] [facility] (TRICOR) 6-17 [facility] 145 MG 00:00: Medical tablet 00 [place] carvedilol 2013-[address] [facility] (COREG) 6-17 [facility] 12.5 MG 00:00: Medical tablet 00 [place] fenofibrate 2013-[address] [facility] (TRICOR) 6-17 [facility] 145 MG 00:00: Medical tablet 00 [place] carvedilol 2013-[address] [facility] (COREG) 6-17 [facility] 12.5 MG 00:00: Medical tablet 00 [place] amLODIPine 2013-0 Yes 5mg QD [address] [facility] (NORVASC) 5 6-11 daily. [facility] MG tablet 00:00: Medical 00 [place] amLODIPine 2013-0 Yes 5mg QD [address] [facility] (NORVASC) 5 6-11 daily. [facility] MG tablet 00:00: Medical 00 [place] amLODIPine 2013-0 Yes 5mg QD [address] [facility] (NORVASC) 5 6-11 daily. [facility] MG tablet 00:00: Medical 00 [place] amLODIPine 2013-0 Yes 5mg QD [address] [facility] (NORVASC) 5 6-11 daily. [facility] MG tablet 00:00: Medical 00 [place] amLODIPine 2013-0 Yes 5mg QD [address] [facility] (NORVASC) 5 6-11 daily. [facility] tablet 00:00: Medical 00 [place] amLODIPine 2014-0 Yes 5mg QD [address] [facility] (NORVASC) 5 6-11 daily. [facility] tablet 00:00: Medical 00 [place] omeprazole 2013-[address] [facility] (PRILOSEC) 5-01 [facility] 40 MG 00:00: Medical capsule 00 [place] omeprazole 2013-[address] [facility] [address] (PRILOSEC) 5-01 [facility] 40 MG 00:00: Medical capsule 00 [place] omeprazole 2013-[address] [facility] (PRILOSEC) 5-01 [facility] 40 MG 00:00: Medical capsule 00 [place] omeprazole 2013-[address] [facility] (PRILOSEC) 5-01 [facility] 40 MG 00:00: Medical capsule 00 [place] omeprazole 2013-[address] [facility] [address] (PRILOSEC) 5-01 [facility] 40 MG 00:00: Medical capsule 00 Center omeprazole 2014-[address] [facility] [address] (PRILOSEC) 07-29 [facility] 40 MG 00:00: Medical capsule 00 Center Terbinafine Terbinafine No 1{table QD Terbinafin HCl [...] 373 MG Nystatin Nystatin No BID Nystatin 144183 [id number] [id number] UNIT/GM UNIT/GM UNIT/GM Citalopram Citalopram No 1{table [...] 373 MG Nystatin Nystatin No BID Nystatin 431846 207687 [id number] UNIT/GM UNIT/GM UNIT/GM Citalopram Citalopram No 1{table [...] 5 MG Nystatin Nystatin No BID Nystatin 778722 459033 [id number] UNIT/GM UNIT/GM UNIT/GM Atorvastati Atorvastati No Atorvastat [...] 5 MG Nystatin Nystatin No BID Nystatin 486272 418616 [id number] UNIT/GM UNIT/GM UNIT/GM Atorvastati Atorvastati No Atorvastat [...] 373 MG Nystatin Nystatin No BID Nystatin 081853 521331 [id number] UNIT/GM UNIT/GM UNIT/GM Citalopram Citalopram No 1{table [...] 25-100 MG Nystatin Nystatin No BID Nystatin 692517 583243 [id number] UNIT/GM UNIT/GM UNIT/GM Donepezil Donepezil No Donepezil [...] 0.1 % Nystatin Nystatin No BID Nystatin 676402 465855 112170 UNIT/GM UNIT/GM UNIT/GM Acetaminoph Acetaminoph No QID [...] 373 MG Nystatin Nystatin No BID Nystatin 127194 654134 [id number] UNIT/GM UNIT/GM UNIT/GM Triamcinolo Triamcinolo No BID [...] 373 MG Nystatin Nystatin No BID Nystatin 817446 248021 [id number] UNIT/GM UNIT/GM UNIT/GM Metoprolol Metoprolol No 1{table [...] 373 MG Nystatin Nystatin No BID Nystatin 296363 195893 [id number] UNIT/GM UNIT/GM UNIT/GM Metoprolol Metoprolol No 1{table [...] 40 MG Nystatin Nystatin No BID Nystatin 962001 516120 573563 UNIT/GM UNIT/GM UNIT/GM hydroCHLORO hydroCHLORO No 1{table [...] 40 MG Nystatin Nystatin No BID Nystatin 242104 970695 [id number] UNIT/GM UNIT/GM UNIT/GM hydroCHLORO hydroCHLORO No 1{table [...] 40 MG Nystatin Nystatin No BID Nystatin 964393 298792 [id number] UNIT/GM UNIT/GM UNIT/GM hydroCHLORO hydroCHLORO No 1{table [...] 40 MG Nystatin Nystatin No BID Nystatin 732292 313156 [id number] UNIT/GM UNIT/GM UNIT/GM hydroCHLORO hydroCHLORO No 1{table [...] 40 MG Nystatin Nystatin No BID Nystatin 055922 633711 [id number] UNIT/GM UNIT/GM UNIT/GM hydroCHLORO hydroCHLORO No 1{table [...] 40 MG Nystatin Nystatin No BID Nystatin 233844 924762 [id number] UNIT/GM UNIT/GM UNIT/GM hydroCHLORO hydroCHLORO No 1{table [...] 40 MG Nystatin Nystatin No BID Nystatin 821328 953831 737052 UNIT/GM UNIT/GM UNIT/GM hydroCHLORO hydroCHLORO No 1{table [...] 250 MG Nystatin Nystatin No BID Nystatin 336481 053611 [id number] UNIT/GM UNIT/GM UNIT/GM Metoprolol Metoprolol No 1{table [...] 250 MG Nystatin Nystatin No BID Nystatin 025177 147205 969455 UNIT/GM UNIT/GM UNIT/GM Metoprolol Metoprolol No 1{table [...] 250 MG Nystatin Nystatin No BID Nystatin 707646 518510 [id number] UNIT/GM UNIT/GM UNIT/GM Metoprolol Metoprolol No 1{table [...] MG 25-100 MG 25-100 MG + + Yes Sidney Taylor as C ommon Complete Complete [place] directed Spi rit Multi Multi - [facility] Metoprolol Metoprolol Yes Sidney Taylor TAKE 1 Common Tartrate Tartrate [place] TABLET BY Sp rachell MOUTH - [facility] TWICE A [facility] Carbidopa-L Carbidopa-L Yes Sidney Taylor TAKE 1 Common evodopa evodopa [place] TABLET BY Spir it MOUTH - [facility] THREE St TIMES A [facility] Levothyroxi Levothyroxi Yes Sidney Taylor TAKE 1 Common ne Sodium ne Sodium [place] TABLET BY Spirit MOUTH - [facility] EVERY DAY [facility] Citalopram Citalopram Yes Sidney Taylor TAKE 1 Common Hydrobromid Hydrobromid [place] TABLET BY Spirit e e MOUTH - [facility] EVERY DAY [facility] Donepezil Donepezil Yes Sidney Taylor TAKE 1 C ommon HCl HCl [place] TABLET BY Spirit MOUTH AT - [facility]I BEDTIME [facility] Atorvastati Atorvastati Yes Sidney Taylor TAKE 1 Common n Calcium n Calcium [place] TABLET BY Spirit MOUTH - [facility] EVERY DAY AT NIGHT [facility] Oxybutynin Oxybutynin Yes Sidney Taylor TAKE 1 Common Chloride Chloride [place] TABLET BY Sp rachell MOUTH - [facility]I EVERY DAY [facility] Ketoconazol Ketoconazol No QD Ketoconazo e-Cleanser e-Cleanser le-Cleanse 2 % 2 % r 2 % + + No + Complete Complete Complete Multi 0.267 Multi 0.267 Multi & 373 MG & 373 MG 0.267 & 373 MG Terbinafine Terbinafine No 1{table QD Terbinafin HCl 250 MG HCl 250 MG t} e HCl 250 MG Nystatin Nystatin No BID Nystatin 806586 782238 [id number] UNIT/GM UNIT/GM UNIT/GM Metoprolol Metoprolol No 1{table [...] 2 % 2 % r 2 % Immunizations Ordered Filled Immunization Date Status Comments Sourc e Immunization Name Name SARS-COV-2 COVID-19 2020-06-08 Completed [facility] of VACCINE - (MODERNA) 00:00:00 [facility] SARS-COV-2 COVID-19 2020-06-08 Completed [facility]ive [facility] of VACCINE - (MODERNA) 00:00:00 [facility] SARS-COV-2 COVID-19 2020-06-08 Completed [facility]ive [facility] of VACCINE - (MODERNA) 00:00:00 [facility] SARS-COV-2 COVID-19 2020-06-08 Completed [facility]ive [facility] of VACCINE - (MODERNA) 00:00:00 [facility] SARS-COV-2 COVID-19 2020-06-08 Completed [facility]ive [facility] of VACCINE - (MODERNA) 00:00:00 [facility] SARS-COV-2 COVID-19 2020-06-08 Completed [facility]ive [facility] of VACCINE - (MODERNA) 00:00:00 [facility] SARS-COV-2 COVID-19 2020-06-08 Completed [facility]ive rs[facility] of VACCINE - (MODERNA) 00:00:00 [facility] SARS-COV-2 COVID-19 2020-06-08 Completed [facility]ive [facility] of VACCINE - (MODERNA) 00:00:00 [facility] SARS-COV-2 COVID-19 2020-06-08 Completed [facility]ive [facility] of VACCINE - (MODERNA) 00:00:00 [facility] SARS-COV-2 COVID-19 2020-06-08 Completed [facility]ive rs[facility] of VACCINE - (MODERNA) 00:00:00 [facility] SARS-COV-2 COVID-19 2020-06-08 Completed [facility]ive [facility] of VACCINE - (MODERNA) 00:00:00 [facility] SARS-COV-2 COVID-19 2020-06-08 Completed [facility]ive [facility] of VACCINE - (MODERNA) 00:00:00 [facility] SARS-COV-2 COVID-19 2020-06-08 Completed [facility]ive [facility] of VACCINE - (MODERNA) 00:00:00 [facility] SARS-COV-2 COVID-19 2020-06-08 Completed [facility]ive rs[facility] of VACCINE - (MODERNA) 00:00:00 [facility] SARS-COV-2 COVID-19 2020-06-08 Completed [facility]ive [facility] of VACCINE - (MODERNA) 00:00:00 [facility] SARS-COV-2 COVID-19 2020-06-08 Completed [facility] of VACCINE - (MODERNA) 00:00:00 [facility] FLUZONE HIGH DOSE FLUZONE HIGH DOSE 2019-12-16 [facility] 10:24:[place] [facility] [place]SE FLUZONE HIGH DOSE 2019-12-16 Completed [facility] OVER [facility] OVER 65 10:24:00 [facility] [place]UZONE HIGH DOSE FLUZONE HIGH DOSE 2019-12-16 Completed [facility] - OVER 65 OVER 65 10:24:00 [facility] [place]UZONE HIGH DOSE FLUZONE HIGH DOSE 2019-12-16 Completed [facility] - OVER 65 OVER 65 10:24:00 [facility] [place]UZONE HIGH DOSE FLUZONE HIGH DOSE 2019-12-16 Completed [facility] - OVER 65 OVER 65 10:24:00 [facility] [place]UZONE HIGH DOSE FLUZONE HIGH DOSE 2019-12-16 Completed [facility] - OVER 65 OVER 65 10:24:00 [facility] [place]UZONE HIGH DOSE FLUZONE HIGH DOSE 2019-12-16 Completed [facility] - OVER 65 OVER 65 10:24:00 [facility] [place]UZONE HIGH DOSE FLUZONE HIGH DOSE 2019-12-16 Completed [facility] - OVER 65 OVER 65 10:24:00 [facility] [place]UZONE HIGH DOSE FLUZONE HIGH DOSE 2019-12-16 Completed [facility] - OVER 65 OVER 65 10:24:00 [facility] [place]UZONE HIGH DOSE FLUZONE HIGH DOSE 2019-12-16 Completed [facility] - OVER 65 OVER 65 10:24:00 [facility] [place]UZONE HIGH DOSE FLUZONE HIGH DOSE 2019-12-16 Completed [facility] - OVER 65 OVER 65 10:24:00 [facility] [place] FLUZONE HIGH DOSE FLUZONE HIGH DOSE 2019-12-16 Completed [facility] - OVER 65 OVER 65 10:24:00 [facility] [place] FLUZONE HIGH DOSE FLUZONE HIGH DOSE 2019-12-16 Completed [facility] - OVER 65 OVER 65 10:24:00 [facility] [place]UZONE HIGH DOSE FLUZONE HIGH DOSE 2019-12-16 Completed [facility] - OVER 65 OVER 65 10:24:00 [facility] [place] FLUZONE HIGH DOSE FLUZONE HIGH DOSE 2019-12-16 Completed [facility] - OVER 65 OVER 65 10:24:00 [facility] [place] FLUZONE HIGH DOSE FLUZONE HIGH DOSE 2019-12-16 Completed [facility] - OVER 65 OVER 65 10:24:00 [facility] [place] FLUZONE HIGH DOSE FLUZONE HIGH DOSE 2019-12-16 Completed [facility] - OVER 65 OVER 65 10:24:00 [facility] [place]UZONE HIGH DOSE FLUZONE HIGH DOSE 2019-12-16 Completed [facility] - OVER 65 OVER 65 10:24:00 [facility] [place] FLUZONE HIGH DOSE FLUZONE HIGH DOSE 2019-12-16 Completed [facility] - OVER 65 OVER 65 10:24:00 [facility] [place] FLUZONE HIGH DOSE FLUZONE HIGH DOSE 2019-12-16 Completed [facility] - OVER 65 OVER 65 10:24:00 [facility] [place] FLUZONE HIGH DOSE FLUZONE HIGH DOSE 2019-12-16 Completed [facility] - OVER 65 OVER 65 10:24:00 [facility] [place] FLUZONE HIGH DOSE FLUZONE HIGH DOSE 2019-12-16 Completed [facility] - OVER 65 OVER 65 10:24:00 [facility] [place] FLUZONE HIGH DOSE FLUZONE HIGH DOSE 2019-12-16 Completed [facility] - OVER 65 OVER 65 10:24:00 [facility] [place] FLUZONE HIGH DOSE FLUZONE HIGH DOSE 2019-12-16 Completed [facility] - OVER 65 OVER 65 10:24:00 [facility] [place] FLUZONE HIGH DOSE FLUZONE HIGH DOSE 2019-12-16 Completed [facility] - OVER 65 OVER 65 10:24:00 [facility] [place] FLUZONE HIGH DOSE FLUZONE HIGH DOSE 2019-12-16 Completed [facility] - OVER 65 OVER 65 10:24:00 [facility] [place] FLUZONE HIGH DOSE FLUZONE HIGH DOSE 2019-12-16 Completed [facility] - OVER 65 OVER 65 10:24:00 [facility] [place] FLUZONE HIGH DOSE FLUZONE HIGH DOSE 2019-12-16 Completed [facility] - OVER 65 OVER 65 10:24:00 [facility] [place] FLUZONE HIGH DOSE FLUZONE HIGH DOSE 2019-12-16 Completed [facility] - OVER 65 OVER 65 10:24:00 [facility] [place] FLUZONE HIGH DOSE FLUZONE HIGH DOSE 2019-12-16 Completed [facility] - OVER 65 OVER 65 10:24:00 [facility] [place] FLUZONE HIGH DOSE FLUZONE HIGH DOSE 2019-12-16 Completed [facility] - OVER 65 OVER 65 10:24:00 [facility] [place] FLUZONE HIGH DOSE FLUZONE HIGH DOSE 2019-12-16 Completed [facility] - OVER 65 OVER 65 10:24:00 [facility] [place] FLUZONE HIGH DOSE FLUZONE HIGH DOSE 2019-12-16 Completed [facility] - OVER 65 OVER 65 10:24:00 [facility] [place] FLUZONE HIGH DOSE FLUZONE HIGH DOSE 2019-12-16 Completed [facility] - OVER 65 OVER 65 10:24:00 [facility] [place] FLUZONE HIGH DOSE FLUZONE HIGH DOSE 2019-12-16 Completed [facility] - OVER 65 OVER 65 10:24:00 [facility] [place] FLUZONE HIGH DOSE FLUZONE HIGH DOSE 2019-12-16 Completed [facility] - OVER 65 OVER 65 10:24:00 [facility] [place] FLUZONE HIGH DOSE FLUZONE HIGH DOSE 2019-12-16 Completed [facility] - OVER 65 OVER 65 10:24:00 [facility] [place] FLUZONE HIGH DOSE FLUZONE HIGH DOSE 2019-12-16 Completed [facility] - OVER 65 OVER 65 00:00:00 [facility] [place] Influenza High Dose 2019-12-16 Completed [facility] of 00:00:00 [facility] Influenza High Dose 2019-12-16 Completed [facility] of 00:00:00 [facility] Influenza High Dose 2019-12-16 Completed [facility]ive [facility] of 00:00:00 [facility] Influenza High Dose 2019-12-16 Completed [facility] of 00:00:00 [facility] Influenza High Dose 2019-12-16 Completed [facility] of 00:00:00 [facility] Influenza High Dose 2019-12-16 Completed [facility]ive [facility] of 00:00:00 [facility] Influenza High Dose 2019-12-16 Completed [facility]ive [facility] of 00:00:00 [facility] Influenza High Dose 2019-12-16 Completed [facility]ive [facility]ity of 00:00:00 [facility] Influenza High Dose 2019-12-16 Completed [facility]ive [facility] of 00:00:00 [facility] Influenza High Dose 2019-12-16 Completed [facility]ive [facility] of 00:00:00 [facility] Influenza High Dose 2019-12-16 Completed [facility]ive [facility] of 00:00:00 [facility] Influenza High Dose 2019-12-16 Completed [facility]ive [facility] of 00:00:00 [facility] Influenza High Dose 2019-12-16 Completed [facility]ive [facility] of 00:00:00 [facility] Influenza High Dose 2019-12-16 Completed [facility]ive [facility] of 00:00:00 [facility] Influenza High Dose 2019-12-16 Completed [facility]ive [facility] of 00:00:00 [facility] Influenza High Dose 2019-12-16 Completed [facility] of 00:00:00 [facility] Vital Signs Vital Name Observation Time Observation Value Comments Source Systolic blood 2022-07-16 22:00:00 111 mm[Hg] [facility] Diastolic blood 2022-07-16 22:00:00 79 mm[Hg] [facility] Heart rate 2022-07-16 22:00:00 63 /min [facility] Respiratory rate 2022-07-16 22:00:00 16 /min [facility] Oxygen saturation in 2022-07-16 22:00:00 92 /min [facility] blood by [place] [facility] [facility] P[facility] Body temperature 2022-07-16 18:02:00 37.11 Misty [facility] Body height 2022-07-16 18:02:00 162.6 cm [facility] Body weight 2022-07-16 18:02:00 76.658 kg [facility] BMI 2022-07-16 18:02:00 29.01 kg/m2 [facility] Systolic blood 2022-07-16 18:05:00 94 mm[Hg] [facility] Diastolic blood 2022-07-16 18:05:00 54 mm[Hg] [facility] Heart rate 2022-07-16 18:05:00 121 /min [facility] Body temperature 2022-07-16 18:05:00 36.5 Misty [facility] Respiratory rate 2022-07-16 18:05:00 24 /min [facility] Body height 2022-07-16 18:05:00 160 cm [facility] Body weight 2022-07-16 18:05:00 76.658 kg [facility] BMI 2022-07-16 18:05:00 29.94 kg/m2 [facility] Oxygen saturation in 2022-07-16 18:05:00 99 /min [facility] Arterial blood by [facility] manny Pulse oximetry Branch Systolic blood 2022-07-05 16:14:00 109 mm[Hg] [facility] Diastolic blood 2022-07-05 16:14:00 77 mm[Hg] [facility] Heart rate 2022-07-05 16:14:00 62 /min [facility] Body height 2022-07-05 16:14:00 160 cm [facility] Body weight 2022-07-05 16:14:00 76.204 kg [facility] BMI 2022-07-05 16:14:00 29.76 kg/m2 [facility] Systolic blood 2022-06-13 15:32:00 125 mm[Hg] [facility] Diastolic blood 2022-06-13 15:32:00 77 mm[Hg] [facility] Heart rate 2022-06-13 15:32:00 68 /min [facility] Respiratory rate 2022-06-13 15:32:00 18 /min [facility] Body height 2022-06-13 15:32:00 160 cm [facility] Body weight 2022-06-13 15:32:00 77.111 kg [facility] BMI 2022-06-13 15:32:00 30.11 kg/m2 [facility] Oxygen saturation in 2022-06-13 15:32:00 98 /min [facility] Arterial blood by [facility] Pulse oximetry Branch Systolic blood 2022-06-04 16:55:00 111 mm[Hg] [facility] Diastolic blood 2022-06-04 16:55:00 80 mm[Hg] [facility] Heart rate 2022-06-04 16:55:00 64 /min [facility] Respiratory rate 2022-06-04 16:55:00 18 /min [facility] Body height 2022-06-04 16:55:00 160 cm [facility] Body weight 2022-06-04 16:55:00 77.111 kg [facility] BMI 2022-06-04 16:55:00 30.11 kg/m2 [facility] Systolic blood 2022-05-21 20:49:00 106 mm[Hg] [facility] Diastolic blood 2022-05-21 20:49:00 71 mm[Hg] [facility] Heart rate 2022-05-21 20:49:00 72 /min [facility] Respiratory rate 2022-05-21 20:49:00 18 /min [facility] Body height 2022-05-21 20:49:00 162.6 cm [facility] Body weight 2022-05-21 20:49:00 77.111 kg [facility] BMI 2022-05-21 20:49:00 29.18 kg/m2 [facility] Oxygen saturation in 2022-05-21 20:49:00 95 /min [facility] Arterial blood by [facility] Pulse oximetry Branch Systolic blood 2022-04-20 14:00:00 125 mm[Hg] [facility] Diastolic blood 2022-04-20 14:00:00 82 mm[Hg] [facility] Heart rate 2022-04-20 14:00:00 65 /min [facility] Respiratory rate 2022-04-20 14:00:00 16 /min [facility] Oxygen saturation in 2022-04-20 14:00:00 98 /min [facility] Arterial blood by [facility] Pulse oximetry Branch Body temperature 2022-04-20 11:25:00 36.5 Misty [facility] Body height 2022-04-20 11:25:00 162.6 cm [facility] Body weight 2022-04-20 11:25:00 72.576 kg [facility] BMI 2022-04-20 11:25:00 27.46 kg/m2 [facility] Systolic blood 2022-04-09 18:06:00 133 mm[Hg] [facility] Diastolic blood 2022-04-09 18:06:00 85 mm[Hg] [facility] Heart rate 2022-04-09 18:06:00 58 /min [facility] Body temperature 2022-04-09 18:06:00 36.44 Mist[facility] Respiratory rate 2022-04-09 18:06:00 16 /min [facility] Body height 2022-04-09 18:06:00 [facility] [facility] Body weight 2022-04-09 18:06:00 79.379 kg [facility] BMI 2022-04-09 18:06:00 31.00 kg/m2 [facility] Oxygen saturation in 2022-04-09 18:06:00 98 /min [facility] Arterial blood by [facility] Pulse oximetry Branch height 2022-02-28 14:00:00 60.5 [in_i] Common [facility] weight 2022-02-28 14:00:00 176.6 [lb_av] [facility] temperature 2022-02-28 14:00:00 98.2 [degF] [facility] bmi 2022-02-28 14:00:00 33.92 kg/m2 [facility] oximetry 2022-02-28 14:00:00 95 % [facility] respiratory rate 2022-02-28 14:00:00 18 /min [facility] blood pressure 2022-02-28 14:00:00 135 mm[Hg] [facility] systolic [facility] blood pressure 2022-02-28 14:00:00 73 mm[Hg] Common [facility] diastolic [facility] height 2022-02-28 15:20:00 60.5 [in_i] [facility] weight 2022-02-28 15:20:00 176.6 [lb_av] [facility] temperature 2022-02-28 15:20:00 98.2 [degF] [facility] bmi 2022-02-28 15:20:00 33.92 kg/m2 [facility] oximetry 2022-02-28 15:20:00 95 % [facility] respiratory rate 2022-02-28 15:20:00 18 /min [facility] blood pressure 2022-02-28 15:20:00 135 mm[Hg] [facility] - systolic [facility] blood pressure 2022-02-28 15:20:00 73 mm[Hg] [facility] - diastolic [facility] Systolic blood 2022-01-16 13:36:00 129 mm[Hg] [facility] Diastolic blood 2022-01-16 13:36:00 84 mm[Hg] [facility] Medicine Heart rate 2022-01-16 13:36:00 64 /min [facility] Body temperature 2022-01-16 13:36:00 36.56 Misty [facility] Respiratory rate 2022-01-16 13:36:00 16 /min [facility] Body height 2022-01-16 13:36:00 162.6 cm [facility] Body weight 2022-01-16 13:36:00 96.163 kg [facility] BMI 2022-01-16 13:36:00 36.39 kg/m2 [facility] Oxygen saturation in 2022-01-16 13:36:00 97 /min [facility] Arterial blood by [facility] Pulse oximetry Systolic blood 2022-01-03 14:58:00 111 mm[Hg] [facility] Diastolic blood 2022-01-03 14:58:00 74 mm[Hg] [facility] Heart rate 2022-01-03 14:58:00 64 /min [facility] Body temperature 2022-01-03 14:58:00 36.61 Misty [facility] Respiratory rate 2022-01-03 14:58:00 18 /min [facility] Body height 2022-01-03 14:58:00 162.6 cm [facility] Body weight 2022-01-03 14:58:[address] [facility] BMI 2022-01-03 14:58:00 30.31 kg/m2 [facility] Oxygen saturation in 2022-01-03 14:58:00 95 /min [facility] Arterial blood by [facility] Pulse oximetry Branch Heart rate 2021-12-20 18:54:00 72 /min [facility] Body height 2021-12-20 18:54:00 162.6 cm [facility] Body weight 2021-12-20 18:54:00 84.823 kg [facility] BMI 2021-12-20 18:54:00 32.10 kg/m2 [facility] Oxygen saturation in 2021-12-20 18:54:00 96 /min [facility] Arterial blood by [facility] Pulse oximetry Branch Systolic blood 2021-12-16 18:14:00 130 mm[Hg] [facility] Diastolic blood 2021-12-16 18:14:00 72 mm[Hg] [facility] Heart rate 2021-12-16 18:14:00 67 /min [facility] Body temperature 2021-12-16 16:51:00 36.67 Misty [facility] Respiratory rate 2021-12-16 16:51:00 18 /min [facility] Oxygen saturation in 2021-12-16 16:51:00 90 /min [facility] Arterial blood by [facility] Pulse oximetry Branch Body weight 2021-12-15 10:09:00 84.959 kg [facility] BMI 2021-12-15 10:09:00 33.18 kg/m2 [facility] Body height 2021-12-13 19:26:00 160 cm [facility] Systolic blood 2021-11-28 14:53:00 140 mm[Hg] [facility] Medicine Diastolic blood 2021-11-28 14:53:00 78 mm[Hg] [facility] Medicine Heart rate 2021-11-28 14:51:00 60 /min [facility] Respiratory rate 2021-11-28 14:51:00 16 /min [facility] Body height 2021-11-28 14:51:00 162.6 cm [facility] Body weight 2021-11-28 14:51:00 96.163 kg [facility] BMI 2021-11-28 14:51:00 36.39 kg/m2 [facility] Oxygen saturation in 2021-11-28 14:51:00 96 /min [facility] blood by Medicine Pulse oximetry height 2021-11-13 10:00:00 60.5 [in_i] [facility] weight 2021-11-13 10:00:00 192 [lb_av] [facility] temperature 2021-11-13 10:00:00 96.7 [degF] [facility] bmi 2021-11-13 10:00:00 36.88 kg/m2 [facility] oximetry 2021-11-13 10:00:00 95 % [facility] respiratory rate 2021-11-13 10:00:00 15 /min [facility] blood pressure 2021-11-13 10:00:00 102 mm[Hg] [facility] systolic [facility] blood pressure 2021-11-13 10:00:00 65 mm[Hg] [facility] diastolic [facility] height 2021-11-01 13:00:00 60.5 [in_i] [facility] weight 2021-11-01 13:00:00 192 [lb_av] [facility] temperature 2021-11-01 13:00:00 96.9 [degF] [facility] bmi 2021-11-01 13:00:00 36.88 kg/m2 [facility] oximetry 2021-11-01 13:00:00 97 % [facility] respiratory rate 2021-11-01 13:00:00 19 /min [facility] blood pressure 2021-11-01 13:00:00 121 mm[Hg] Common [facility] - systolic [facility] blood pressure 2021-11-01 13:00:00 72 mm[Hg] [facility] - diastolic [facility] height 2021-09-19 10:30:00 63 [in_i] [facility] weight 2021-09-19 10:30:00 214 [lb_av] [facility] temperature 2021-09-19 10:30:00 97.2 [degF] [facility]mi 2021-09-19 10:30:00 37.9 kg/m2 Common [facility] oximetry 2021-09-19 10:30:00 97 % [facility] respiratory rate 2021-09-19 10:30:00 17 /min [facility] blood pressure 2021-09-19 10:30:00 135 mm[Hg] [facility] - systolic [facility] blood pressure 2021-09-19 10:30:00 70 mm[Hg] [facility] - diastolic [facility] Systolic blood 2021-08-26 18:30:00 130 mm[Hg] [facility] Diastolic blood 2021-08-26 18:30:00 86 mm[Hg] Unive rsity [facility] Heart rate 2021-08-26 18:30:00 65 /min [facility] Respiratory rate 2021-08-26 18:30:00 18 /min [facility] Oxygen saturation in 2021-08-26 18:30:00 94 /min [facility] Arterial blood by [facility] Pulse oximetry Branch Body temperature 2021-08-26 15:56:00 36.39 Misty [facility] Body weight 2021-08-26 15:56:00 94.802 kg [facility] BMI 2021-08-26 15:56:00 35.87 kg/m2 [facility] Systolic blood 2021-08-24 14:51:00 91 mm[Hg] [facility] pressure Medicine Diastolic blood 2021-08-24 14:51:00 67 mm[Hg] [facility] pressure Medicine Heart rate 2021-08-24 14:51:00 59 /min [facility] Respiratory rate 2021-08-24 14:51:00 16 /min [facility] Body height 2021-08-24 14:51:00 162.6 cm [facility] Body weight 2021-08-24 14:51:00 96.163 kg [facility] BMI 2021-08-24 14:51:00 36.39 kg/m2 [facility] Oxygen saturation in 2021-08-24 14:51:00 98 /min [facility] blood by [facility] Pulse oximetry height 2021-07-31 13:00:00 63 [in_i] [facility] weight 2021-07-31 13:00:00 199.0 [lb_av] [facility] temperature 2021-07-31 13:00:00 97.2 [degF] [facility] bmi 2021-07-31 13:00:00 35.25 kg/m2 [facility] oximetry 2021-07-31 13:00:00 96 % [facility] respiratory rate 2021-07-31 13:00:00 19 /min [facility] blood pressure 2021-07-31 13:00:00 128 mm[Hg] [facility] - systolic [facility] blood pressure 2021-07-31 13:00:00 80 mm[Hg] [facility] - diastolic [facility] height 2021-06-27 13:30:00 63 [in_i] [facility] weight 2021-06-27 13:30:00 201.2 [lb_av] [facility] temperature 2021-06-27 13:30:00 97.3 [degF] [facility] bmi 2021-06-27 13:30:00 35.64 kg/m2 [facility] oximetry 2021-06-27 13:30:00 94 % [facility] respiratory rate 2021-06-27 13:30:00 20 /min [facility] blood pressure 2021-06-27 13:30:00 139 mm[Hg] [facility] - systolic [facility] blood pressure 2021-06-27 13:30:00 84 mm[Hg] [facility] - diastolic [facility] Systolic blood 2021-06-05 16:39:00 138 mm[Hg] [facility] Medicine Diastolic blood 2021-06-05 16:39:00 69 mm[Hg] [facility] Medicine Heart rate 2021-06-05 16:39:00 64 /min [facility] Respiratory rate 2021-06-05 16:39:00 16 /min [facility] Body height 2021-06-05 16:39:00 162.6 cm [facility] Body weight 2021-06-05 16:39:00 90.719 kg [facility] BMI 2021-06-05 16:39:00 34.33 kg/m2 [facility] Oxygen saturation in 2021-06-05 16:39:00 98 /min [facility] blood by [facility] Pulse oximetry height 2021-05-28 13:30:00 63 [in_i] [facility] weight 2021-05-28 13:30:00 202 [lb_av] [facility] temperature 2021-05-28 13:30:00 97.2 [degF] [facility] bmi 2021-05-28 13:30:00 35.78 kg/m2 [facility] oximetry 2021-05-28 13:30:00 96 % [facility] respiratory rate 2021-05-28 13:30:00 18 /min [facility] blood pressure 2021-05-28 13:30:00 132 mm[Hg] [facility] - systolic [facility] blood pressure 2021-05-28 13:30:00 85 mm[Hg] [facility] - diastolic [facility] height 2021-03-01 14:00:00 63 [in_i] Common [facility] - [facility] weight 2021-03-01 14:00:00 190 [lb_av] [facility] - [facility] temperature 2021-03-01 14:00:00 97.6 [degF] [facility] - [facility] bmi 2021-03-01 14:00:00 33.65 kg/m2 [facility] - [facility] oximetry 2021-03-01 14:00:00 93 % [facility] - [facility] blood pressure 2021-03-01 14:00:00 125 mm[Hg] [facility] - systolic [facility] blood pressure 2021-03-01 14:00:00 83 mm[Hg] [facility] - diastolic [facility] height 2021-01-31 08:20:00 63 [in_i] [facility] - [facility] weight 2021-01-31 08:20:00 194.2 [lb_av] [facility] - [facility] temperature 2021-01-31 08:20:00 97.4 [degF] Common [facility] bmi 2021-01-31 08:20:00 34.4 kg/m2 Common [facility] - [facility] oximetry 2021-01-31 08:20:00 98 % [facility] - [facility] blood pressure 2021-01-31 08:20:00 140 mm[Hg] [facility] - systolic [facility] blood pressure 2021-01-31 08:20:00 82 mm[Hg] [facility] - diastolic [facility] height 2020-12-21 13:00:00 63 [in_i] [facility] - [facility] weight 2020-12-21 13:00:00 194.2 [lb_av] [facility] - [facility] temperature 2020-12-21 13:00:00 95.7 [degF] Common [facility] - [facility] bmi 2020-12-21 13:00:00 34.40 kg/m2 [facility] - [facility] oximetry 2020-12-21 13:00:00 98 % [facility] - [facility] respiratory rate 2020-12-21 13:00:00 16 /min [facility] - [facility] blood pressure 2020-12-21 13:00:00 139 mm[Hg] [facility] - systolic [facility] blood pressure 2020-12-21 13:00:00 69 mm[Hg] [facility] - diastolic [facility] Systolic blood 2020-07-12 16:53:00 144 mm[Hg] [facility] Medicine Diastolic blood 2020-07-12 16:53:00 86 mm[Hg] [facility] Medicine Heart rate 2020-07-12 16:53:00 70 /min [facility] Respiratory rate 2020-07-12 16:53:00 15 /min [facility] Body height 2020-07-12 16:53:00 162.6 cm [facility] Body weight 2020-07-12 16:53:00 96.163 kg [facility] BMI 2020-07-12 16:53:00 36.39 kg/m2 [facility] Oxygen saturation in 2020-07-12 16:53:00 96 /min [facility] blood by [facility] Pulse oximetry Procedures Procedure Date / Time Performing Clinician Source Performed CT ABDOMEN PELVIS W 2022-07-16 20:23:04 Grant Oaeks [facility] CONTRAST [facility] Branch CT HEAD WO CONTRAST 2022-07-16 20:22:30 Grant Oakes [facility] URINALYSIS 2022-07-16 19:11:00 Grant Oakes [facility] LACTIC ACID WHOLE BLOOD 2022-07-16 18:56:00 Grant Oakes [facility] LIPASE 2022-07-16 18:47:00 Grant Oakes [facility] COMP. METABOLIC PANEL 2022-07-16 18:47:[address] [facility] ([id number]) Medical Branch CBC WITH DIFF 2022-07-16 18:47:00 Grant Oakes [facility] CONSENT/REFUSAL FOR 2022-07-16 17:50:32 Doctor Yakelin [facility] DIAGNOSIS AND TREATMENT [facility]3] POCT URINALYSIS 2022-06-13 16:13:00 Coty Cooper [facility] URINALYSIS 2022-04-20 12:50:00 Singer Leeroy [facility] CT STROKE HEAD WO CONTRAST 2022-04-20 11:46:37 Leeroy Kraus [facility] CT STROKE ANGIOGRAM HEAD 2022-04-20 11:46:37 Leeroy Kraus [facility] CT STROKE ANGIOGRAM NECK 2022-04-20 11:46:37 Leeroy Kraus [facility] TROPONIN I 2022-04-20 11:28:00 Singer Leeroy [facility] BASIC METABOLIC PANEL (NA, 2022-04-20 11:28:00 Leeroy Kraus [facility] K, CL, CO2, GLUCOSE, BUN, Medica l Branch CREATININE, [place]) CBC WITHOUT DIFF 2022-04-20 11:28:00 Leeroy Kraus [facility] PROTHROMBIN TIME / INR 2022-04-20 11:28:00 [facility] ACTIVATED PARTIAL THRMPLAS 2022-04-20 11:28:00 Leeroy Kraus [facility] POCT GLUCOSE (AUTOMATED) 2022-04-20 11:23:00 Leeroy Kraus [facility] CONSENT/REFUSAL FOR 2022-04-20 11:20:31 Doctor Yakelin [facility] DIAGNOSIS AND TREATMENT [facility]3] NOTICE OF PRIVACY PRACTICES 2022-04-20 11:20:14 Doctor Brittaney jimenez [facility] POCT URINALYSIS 2022-04-09 18:07:00 Sue Grier [facility] MEDICAL RELEASE/CLEARANCE 2022-01-22 05:01:[address] [facility] FORMS [facility]3] MEDICAL RELEASE/CLEARANCE 2022-01-08 05:01:00 Doctor Unassigned, [facility] FORMS [place] [facility] DISCLOSURE AND CONSENT, 2022-01-03 05:01:00 Doctor Unassigned, [facility] MEDICAL AND SURGICAL [place] [facility] PROCEDURES FL UPPER GI SERIES 2022-01-02 14:33:12 Blanca Wolfe [facility] ASSIGNMENT OF BENEFITS 2022-01-02 13:54:55 Doctor Unassigned, [facility] [place] [facility] BASIC METABOLIC PANEL (NA, 2021-12-16 09:15:00 Rekha Mccann [facility] K, CL, CO2, GLUCOSE, BUN, Medica l Branch CREATININE, [place]) CBC WITH DIFF 2021-12-16 09:15:00 Ramy Rekhaholley Broderick [facility] N-TERMINAL PRO-BNP 2021-12-16 09:15:00 Janet Duffy [facility] HB ECG ROUTINE & RHYTHM 2021-12-15 15:42:36 Rekha Mccann [facility] CBC WITH DIFF 2021-12-15 10:48:00 Rekha Mccann Meggan [facility] PHOSPHORUS 2021-12-14 11:43:00 Jeevan Roman [facility] CREATINE KINASE 2021-12-14 11:43:00 Jeevan Roman [facility] MAGNESIUM 2021-12-14 11:43:00 Abel sophia [facility] TROPONIN I 2021-12-14 11:43:00 Abel sophia [facility] COMP. METABOLIC PANEL 2021-12-14 11:43:[address] [facility] ([id number]) [facility] N-TERMINAL PRO-BNP 2021-12-14 11:43:00 Jeevan Roman [facility] TROPONIN I 2021-12-14 08:04:00 Jeevan Roman [facility] CREATINE KINASE 2021-12-14 03:47:00 Abel [facility] URIC ACID 2021-12-14 03:47:00 Jeevan Roman [facility] FERRITIN SERUM 2021-12-14 03:47:00 Abel sophia [facility] VITAMIN B12, LEVEL 2021-12-14 03:47:00 Jeevan Roman [facility] TROPONIN I 2021-12-14 03:47:00 Abel sophia [facility] THYROID STIMULATING HORMONE 2021-12-14 03:47:00 Abel [facility] LIPID PANEL ([id number])(TOTAL 2021-12-14 03:47:00 Jeevan Roman [facility] CHOLESTEROL, TRIGLYCERIDES, [facility] HDL) IRON PANEL 2021-12-14 03:47:00 Abel sophia [facility] SEDIMENTATION RATE 2021-12-14 03:47:00 Abel sophia [facility] PROTHROMBIN TIME / INR 2021-12-14 03:47:00 Jeevan Roman [facility] URINE CULTURE 2021-12-14 03:47:00 Abel sophia [facility] VITAMIN D, 25-OH 2021-12-14 03:47:00 bAel [facility] PROTEIN CREAT RATIO URINE 2021-12-14 03:47:00 Jeevan Roman [facility] UREA NITROGEN, URINE RANDOM 2021-12-14 03:47:00 Abel [facility] SODIUM, URINE RANDOM 2021-12-14 03:47:00 Jeevan Roman [facility] PROCALCITONIN 2021-12-14 03:47:00 Abel sophia [facility] AC VBG + LACTIC ACID 2021-12-14 03:47:00 Abel sophia [facility] URINALYSIS 2021-12-13 23:54:00 Halina Kurtz [facility] XR CHEST 1 VW 2021-12-13 22:50:00 Halina Kurtz [facility] COVID-19 (ID NOW RAPID 2021-12-13 22:43:00 [facility] LAB ONLY COVID 2021-12-13 22:43:00 Halina Kurtz [facility] INTERPRETATION [facility] CT ABDOMEN PELVIS W 2021-12-13 21:35:23 Halina Kurtz [facility] CONTRAST [facility] CBC WITH DIFF 2021-12-13 20:57:00 Halina Kurtz [facility] GLYCOSYLATED HEMOGLOBIN 2021-12-13 20:57:00 Jeevan Roman [facility] ([id number]) Medical Branch LIPASE 2021-12-13 20:28:00 Halina Kurtz [facility] MAGNESIUM 2021-12-13 20:28:00 Halina Kurtz [facility] TROPONIN I 2021-12-13 20:28:00 Halina Kurtz [facility] COMP. METABOLIC PANEL 2021-12-13 20:28:00 Halina Kurtz [facility] ([id number]) [facility] N-TERMINAL PRO-BNP 2021-12-13 20:28:00 Halina Kurtz [facility] HB ECG ROUTINE & RHYTHM 2021-12-13 20:15:29 [facility] STRIP [facility] CONSENT/REFUSAL FOR 2021-12-13 19:13:23 Doctor Unassigned, [facility] DIAGNOSIS AND TREATMENT [place] [facility] Branch BRAIN NATRIURETIC PEPTIDE 2021-11-28 10:56:00 [facility] CBC W/O DIFF W PLT 2021-11-28 10:56:00 [facility] LIPID PANEL 2021-11-28 10:56:00 [facility] COMPREHENSIVE METABOLIC 2021-11-28 10:56:00 [facility] BRAIN NATRIURETIC PEPTIDE 2021-11-28 10:19:36 [facility] CBC W/O DIFF W PLT 2021-11-28 10:19:36 [facility] LIPID PANEL 2021-11-28 10:19:36 [facility] COMPREHENSIVE METABOLIC 2021-11-28 10:19:36 [facility] EXTERNAL PROVIDER RECORDS 2021-11-09 05:01:[address] [facility] [place] [facility] CT HEAD WO CONTRAST 2021-08-26 17:06:03 Halina Kurtz [facility] XR CHEST 1 VW 2021-08-26 16:47:00 Halina Kurtz [facility] URINALYSIS 2021-08-26 16:34:00 Halina Kurtz [facility] TROPONIN I 2021-08-26 16:21:00 Halina Kurtz [facility] COMP. METABOLIC PANEL 2021-08-26 16:21:00 Halina Kurtz [facility] ([id number]) [facility] CBC WITH DIFF 2021-08-26 16:21:00 Halina Kurtz [facility] NOTICE OF PRIVACY PRACTICES 2021-08-26 15:51:02 Doctor Brittaney jimenez [facility] Name [facility] CONSENT/REFUSAL FOR 2021-08-26 15:50:43 [facility] DIAGNOSIS AND TREATMENT [place] [facility] ELECTROCARDIOGRAM COMPLETE 2021-08-24 14:45:00 Moisés Gann [facility] ELECTROCARDIOGRAM COMPLETE 2021-08-24 12:31:40 Radha [facility] AMB REF TO GERIATRICS 2021-08-24 11:05:00 [facility] Medicine ELECTROCARDIOGRAM COMPLETE 2021-08-24 09:45:00 Radha [facility] XR CHEST 2 VIEWS 2021-06-05 12:39:00 Moisés Gann [facility] ELECTROCARDIOGRAM COMPLETE 2020-07-12 17:14:52 Moisés Gann [facility] AUTHORIZATION FOR RELEASE 2019-05-18 06:01:[address] [facility] [place] [facility] ELECTROCARDIOGRAM COMPLETE 2014-10-04 15:30:46 Radha [facility] Plan of Care Planned Activity Planned Date Details Comments Source Future Scheduled 2022-11-[address] [facility] Test 00:00:00 (Season Ended) [code = [facility] INFLUENZA VACCINE (Season Ended)] Future Scheduled 2022-11-29 [...] Future Scheduled 2022-07-16 SHINGLES VACCINES ([facility] 12:06:28 2) [code [facility]ACC[facility] (1 of 2)] Future Scheduled 2022-07-16 65+ PNEUMOCOCCAL [facility]i [facility] Test 12:06:28 VACCINE (1 - PCV) [code Hosp ital = 65+ PNEUMOCOCCAL VACCINE (1 - PCV)] Future Scheduled 2022-07-16 INFLUENZA VACCINE [code [facility] 12:06:28 = INFLUENZA VACCINE] Hospita l Future Scheduled 2022-07-16 COVID-19 VACCINE (#1) [facility] 12:06:28 [code = COVID-19 Hospital VACCINE (#1)] Future Scheduled 2022-07-16 SHINGLES VACCINES (1 of [facility] Test 12:06:28 2) [code = SHINGLES Hospital VACCINES (1 of 2)] Future Scheduled 2022-07-16 65+ PNEUMOCOCCAL Methodi st Test 12:06:28 VACCINE (1 - PCV) [code Hosp ital = 65+ PNEUMOCOCCAL VACCINE (1 - PCV)] Future Scheduled 2022-07-16 INFLUENZA VACCINE [code [facility] Test 12:06:28 = INFLUENZA VACCINE] Hospita l [...] (#1)] Future Scheduled 2022-01-16 TETANUS SHOT (ADULT) [facility] [employer] Test 16:23:26 [code = TETANUS SHOT of Medi cine (ADULT)] Future Scheduled 2022-01-16 BMI FOLLOW UP PLAN [employer] Test 16:23:26 [code = BMI FOLLOW UP of Med icine PLAN] Future Scheduled 2022-01-16 ZOSTER VACCINE (1 of 2) [employer] Test 16:23:26 [code = ZOSTER VACCINE of Me dicine (1 of 2)] Future Scheduled 2022-01-16 Screening for [facility] [employer] Test 16:23:26 osteoporosis of Medicine (procedure) [code = 421264676] Future Scheduled 2022-01-16 Pneumococcal 65+ (1 - [...] (#1)] Future Scheduled 2022-01-16 TETANUS SHOT (ADULT) [facility] Test 11:27:18 [code = TETANUS SHOT of Medi cine (ADULT)] Future Scheduled 2022-01-16 BMI FOLLOW UP PLAN [facility] r [facility] Test 11:27:18 [code = BMI FOLLOW UP of Med icine PLAN] Future Scheduled 2022-01-16 ZOSTER VACCINE (1 of 2) [facility] Test 11:27:18 [code = ZOSTER VACCINE of Me dicine (1 of 2)] Future Scheduled 2022-01-16 [facility] for [facility] Test 11:27:18 osteoporosis of Medicine (procedure) [code = 009537672] Future Scheduled 2022-01-16 Pneumococcal 65+ (1 - [employer] Test 11:27:18 PCV) [code = of Medicine Pneumococcal 65+ (1 - PCV)] Future Scheduled 2022-01-16 MEDICARE AWV (Initial) [facility] Test 11:27:18 [code = MEDICARE AWV of Medi Speak With Me (Initial)] Future Scheduled 2022-01-16 FLU VACCINE > 6 MONTHS [facility] Test 11:27:18 [code = FLU VACCINE > 6 of M edicine MONTHS] Future Scheduled 2022-01-16 FALL SCREEN [code = [facility] or [facility] Test 11:27:18 FALL SCREEN] of [...] (#1)] Future Scheduled 2021-11-28 BRAIN NATRIURETIC Ordered: [facility] Test 10:19:36 PEPTIDE [code = 11/28/2021 of Medicine 40279-9] Future Scheduled 2021-11-28 CBC W/O DIFF W PLT Ordered: [facility] Test 10:19:36 [code = 6690-2] 11/28/2021 of Medicine Future Scheduled 2021-11-28 LIPID PANEL [code = Ordered: [facility] [place] Test 10:19:36 44588-5] 11/28/2021 of Medicine Future Scheduled 2021-11-28 COMPREHENSIVE METABOLIC Ordered: [facility] Test 10:19:36 PANEL [code = 52930-4] 11/28/2021 of Me dicine Future Scheduled 2021-11-28 COVID-19 Vaccine (#1) Ba [facility] Test 09:47:47 [code = COVID-19 of Medicine Vaccine (#1)] Future Scheduled 2021-11-28 TETANUS SHOT (ADULT) [facility] Test 09:47:47 [code = TETANUS SHOT of Medi cine (ADULT)] Future Scheduled 2021-11-28 BMI FOLLOW UP PLAN [facility] [place] Test 09:47:47 [code = BMI FOLLOW UP of Med icine PLAN] Future Scheduled 2021-11-28 ZOSTER VACCINE (1 of 2) [facility] Test 09:47:47 [code = ZOSTER VACCINE of Me dicine (1 of 2)] Future Scheduled 2021-11-28 FALL SCREEN [code = [facility] [place] Test 09:47:47 FALL SCREEN] of Medicine Future Scheduled 2021-11-28 [facility] for [facility] Test 09:47:47 osteoporosis of Medicine (procedure) [code = 889610849] Future Scheduled 2021-11-28 Pneumococcal 65+ ([facility] - [facility] 09:[facility] PCV) [code = of Medicine Pneumococcal 65+ (1 - PCV)] Future Scheduled 2021-11-28 MEDICARE AWV (Initial) B [facility] Test 09:47:47 [code = MEDICARE AWV of [facility] cine (Initial)] Future Scheduled 2021-11-28 FLU VACCINE > 6 MONTHS B [facility] Test 09:47:47 [code = FLU VACCINE > 6 of M edicine MONTHS] Future Scheduled 2021-11-27 HEPATITIS B VACCINES (1 [facility] 23:30:16 of 3 - 3-dose series) Hospit al [code = HEPATITIS B VACCINES (1 of 3 - 3-dose series)] Future Scheduled 2021-11-27 COVID-19 VACCINE (#1) [facility] 23:30:16 [code = COVID-19 Hospital VACCINE (#1)] Future Scheduled 2021-11-27 SHINGLES VACCINES (1 of [facility] Test 23:30:16 2) [code = SHINGLES Hospital VACCINES (1 of 2)] Future Scheduled 2021-11-27 65+ PNEUMOCOCCAL Methodi [facility] Test 23:30:16 VACCINE (1 - PCV) [code Hosp ital = 65+ PNEUMOCOCCAL VACCINE (1 - PCV)] Future Scheduled 2021-11-27 INFLUENZA VACCINE [code [facility] Test 23:30:16 = INFLUENZA VACCINE] Hospita l Future Scheduled 2021-11-27 HEPATITIS B VACCINES (1 [facility] Test 23:30:16 of 3 - 3-dose series) Hospit al [code = HEPATITIS B VACCINES (1 of 3 - 3-dose series)] Future Scheduled 2021-11-27 COVID-19 VACCINE (#1) [facility] 23:30:16 [code = COVID-19 Hospital VACCINE (#1)] Future Scheduled 2021-11-27 SHINGLES VACCINES (1 of [facility] Test 23:30:16 2) [code = SHINGLES Hospital VACCINES (1 of 2)] Future Scheduled 2021-11-27 65+ PNEUMOCOCCAL Methodi [facility] Test 23:30:16 VACCINE (1 - PCV) [code Hosp ital = 65+ PNEUMOCOCCAL VACCINE (1 - PCV)] Future Scheduled 2021-11-27 INFLUENZA VACCINE [code [facility] Test 23:30:16 = INFLUENZA VACCINE] Hospita l Future Scheduled 2021-11-27 HEPATITIS B VACCINES (1 [facility] Test 23:30:16 of 3 - 3-dose series) Hospit al [code = HEPATITIS B VACCINES (1 of 3 - 3-dose series)] Future Scheduled 2021-11-27 COVID-19 VACCINE (#1) [facility] 23:30:16 [code = COVID-19 Hospital VACCINE (#1)] Future Scheduled 2021-11-27 SHINGLES VACCINES (1 of [facility] Test 23:30:16 2) [code = SHINGLES Hospital VACCINES (1 of 2)] Future Scheduled 2021-11-27 65+ PNEUMOCOCCAL Methodi [facility] Test 23:30:16 VACCINE (1 - PCV) [code Hosp ital = 65+ PNEUMOCOCCAL VACCINE (1 - PCV)] Future Scheduled 2021-11-27 INFLUENZA VACCINE [code [facility] Test 23:30:16 = INFLUENZA VACCINE] Hospita l Future Scheduled 2021-08-24 US ANKLE / BRACHIAL 1 Occurrences [facility] Test 11:05:00 INDICES EXTREMITY starting of Medicin e COMPLETE [code = 50629] 08/24/2021 until 08/24/2022 Future Scheduled 2021-08-24 ELECTROCARDIOGRAM [facility] Test 09:45:08 COMPLETE [code = 52936] of M edicine Future Scheduled 2021-08-24 COVID-19 Vaccine (#1) [employer] Test 09:44:38 [code = COVID-19 of Medicine Vaccine (#1)] Future Scheduled 2021-08-24 TETANUS SHOT (ADULT) [employer] Test 09:44:38 [code = TETANUS SHOT of Medi cine (ADULT)] Future Scheduled 2021-08-24 BMI FOLLOW UP PLAN [employer] Test 09:44:38 [code = BMI FOLLOW UP of Med icine PLAN] Future Scheduled 2021-08-24 ZOSTER VACCINE (1 of 2) [facility] Test 09:44:38 [code = ZOSTER VACCINE of Me dicine (1 of 2)] Future Scheduled 2021-08-24 FALL SCREEN [code = [facility] [employer] Test 09:44:38 FALL SCREEN] of Medicine Future Scheduled 2021-08-24 Screening for [facility] [employer] Test 09:44:38 osteoporosis of Medicine (procedure) [code = 189728254] Future Scheduled 2021-08-24 Pneumococcal 65+ (1 - [...] MONTHS] Future Scheduled 2021-06-05 BRAIN NATRIURETIC Ordered: [facility] Test 11:04:14 PEPTIDE [code = 06/05/2021 of Medicine 39296-7] Future Scheduled 2021-06-05 COMPREHENSIVE METABOLIC Ordered: [facility] Test 11:04:14 PANEL [code = 49874-1] 06/05/2021 of Me dicine Future Scheduled 2021-06-05 MAGNESIUM [code = Ordered: [facility] Test 11:04:14 91969-1] 06/05/2021 of Medicine Future Scheduled 2021-06-05 LIPID PANEL [code = Ordered: [facility] [employer] Test 11:04:14 79957-9] 06/05/2021 of Medicine Future Scheduled 2021-06-05 CBC W/O DIFF W PLT Ordered: [employer] [employer] Test 11:04:14 [code = 6690-2] 06/05/2021 of Medicine Future Scheduled 2021-06-05 TSH [code = 82795-6] Ordered: [employer] Test 11:04:14 06/05/2021 of Medicine Future Scheduled 2021-06-05 XR CHEST PA AND LATERAL 1 Occurrences [facility] Test 11:04:14 [code = 25432-0] starting of Medicine 06/05/2021 until 06/05/2022 Future Scheduled 2021-06-05 COVID-19 Vaccine (1) [employer] Test 10:44:29 [code = COVID-19 of Medicine Vaccine (1)] Future Scheduled 2021-06-05 TETANUS SHOT (ADULT) [facility] Test 10:44:29 [code = TETANUS SHOT of Medi cine (ADULT)] Future Scheduled 2021-06-05 BMI FOLLOW UP PLAN [facility] Test 10:44:29 [code = BMI FOLLOW UP of Med icine PLAN] Future Scheduled 2021-06-05 ZOSTER VACCINE (1 of 2) [facility] Test 10:44:29 [code = ZOSTER VACCINE of Me dicine (1 of 2)] Future Scheduled 2021-06-05 FALL SCREEN [code = [employer] [facility] [employer] Test 10:44:29 FALL SCREEN] of Medicine Future Scheduled 2021-06-05 Screening for [facility] Test 10:44:29 osteoporosis of Medicine (procedure) [code = 694613049] Future Scheduled 2021-06-05 Pneumococcal 65+ (1 of [...] r College Pending 00:00:00 LEXISCAN [code = 16082] 07/12/2020, of M edicine Expires: 01/11/2022 Diagnostic Test 2020-07-12 ECHO, COMPLETE [code = Ex[facility] [place] Pending 00:00:00 11686] 07/12/2020, of Medicine Expires: 01/11/2021 Future Scheduled [...] [facility] Test 00[facility]00 2) [code = [facility] VACCINES (1 of 2)] Future Scheduled [...] Medical Center Future Scheduled TETANUS SHOT (ADULT) [facility] Test [code = TETANUS SHOT of Medi cine (ADULT)] Future Scheduled COVID-19 Vaccine (1) [employer] [facility] [code = COVID-19 of Medicine Vaccine (1)] Future Scheduled ZOSTER VACCINE (1 of 2) [facility] Test [code = ZOSTER VACCINE of Me dicine (1 of 2)] Future Scheduled FALL SCREEN [code = [facility] [place] Test FALL SCREEN] of Medicine Future Scheduled Screening for [facility] Test osteoporosis of Medicine (procedure) [code = 949287930] Future Scheduled PNEUMOVAX >=65 (PPSV23) [facility] Test [code = PNEUMOVAX >=65 of Me dicine (PPSV23)] Future Scheduled [facility]Initial[facility] [code = MEDICARE AWV of Medi cine (Initial)] Future Scheduled FLU VACCINE > 6 MONTHS [facility] [code = FLU VACCINE > 6 of M edicine MONTHS] Encounters Start End Encounter Admission Attending Care Care Encounter Source Date/Time Date/Time Type Type Clinicians Facility Department ID 2022-02-27 Outpatient Monk, Na STLMLC STLMLC [id number] Common 11:27:02 [facility] 2022-01-10 Outpatient Hannah WOLFE [email or web address] ANJUM [id number] Univers 17:24:[address] [facility] 2021-12-13 Outpatient Monk, Na STLMLC STLMLC [id number] 2 Common 12:08:01 [facility] 2021-12-12 Outpatient Monk, Na STLMLC STLMLC [id number] 2 Common 09:41:01 [facility] 2021-10-30 Outpatient Monk, Na STLMLC STLMLC [id number] 2 Common 14:30:01 [facility] 2021-04-25 Outpatient Monk, Na STLMLC STLMLC [id number] 2 Common 16:34:00 [facility] 2021-04-25 Outpatient Monk, Na STLMLC STLMLC [id number] 2 Common 14:34:04 [facility] 2021-04-25 Outpatient Monk, Na STLMLC STLMLC [id number] 2 Common 14:28:02 [facility] 2021-04-25 Outpatient Monk, Na STLMLC STLMLC [id number] 2 Common 14:10:33 93330 [facility] 2021-04-25 Outpatient Monk, Na STLMLC STLMLC [id number] 2 Common 14:08:10 [id number] [facility] 2021-04-25 Outpatient Monk, Na STLMLC STLMLC [id number] 2 Common 13:52:09 37497 [facility] 2021-04-25 Outpatient Monk, Na STLMLC STLMLC [id number] 2 Common 12:53:21 73661 [facility] 2021-04-25 Outpatient Monk, Na STLMLC STLMLC [id number] 2 Common 12:51:50 43627 [facility] 2021-04-25 Outpatient Kenny, STLMLC STLMLC [id number] Common 12:38:53 Evelyn 15782 [facility] 2021-04-25 Outpatient Kenny, STLMLC STLMLC [id number] Common 12:38:01 Evelyn 29040 [facility] 2021-04-25 Outpatient Kenny, STLMLC STLMLC [id number] Common 12:31:21 Evelyn 84331 [facility] 2021-04-25 Outpatient Kenny, STLMLC STLMLC [id number] Common 12:30:55 Evelyn 76384 [facility] 2021-04-25 Outpatient Kenny, STLMLC STLMLC [id number] Common 12:28:40 Evelyn 53035 [facility] 2021-04-25 Outpatient Kenny, STLMLC STLMLC [id number] Common 12:27:39 Evelyn 22413 [facility] 2021-04-25 Outpatient Kenny, STLMLC STLMLC [id number] Common 12:26:48 Evelyn 32317 [facility] 2021-04-25 Outpatient Kenny, STLMLC STLMLC [id number] Common 12:25:47 Evelyn 75036 [facility] 2021-04-25 Outpatient Kenny [facility] [id number] Common 12:25:36 Evelyn 36491 [facility] 2021-04-25 Outpatient STGODWIN [facility] [id number] Common 12:24:11 83277 [facility] 2021-04-25 Outpatient Sidney Guardado [facility] [id number] 02 Common 12:16:20 27216 [facility] 2021-04-25 Outpatient Sidney uGardado [facility] [id number] 02 Common 12:03:40 14827 [facility] 2021-04-25 Outpatient Sidney Guardado [facility] [id number] 02 Common 11:46:48 Taylor 73643 [facility] 2022-10-04 2022-10-04 [facility] [id number] Univers 11:00:00 11:00:00 COTY [facility] 2022-09-11 2022-09-11 Outpatient CARLY MORALES [facility] [id number] [facility] 00:00:00 00:00:00 [facility] 2022-09-11 2022-09-11 Outpatient ALEXA TAYLOR [facility] [id number] [facility] 00:00:00 00:00:00 [facility] 2022-08-21 2022-08-21 Outpatient Hannah [facility] [id number] Univers 13:00:00 13:00:00 RYLAN [facility] 2022-08-09 2022-08-09 Outpatient Hannah [facility] [id number] Univers 14:20:00 14:20:00 RYLAN [facility] 2022-08-09 2022-08-09 Outpatient Hannah [facility] [id number] Univers 14:20:00 14:20:00 RYLAN [facility] 2022-08-08 2022-08-08 [facility] [id number] Univers 00:00:00 00:00:00 [facility] 350.1.13.10 it y of [facility] 4.2.7.2.686 Franki as ARDEN?BLEA [id number] [facility] BELKIS 092 [facility] OFFICE [facility] 2022-08-07 2022-08-07 Telephone [facility] 1.2.840.114 [id number] Univers 00:00:00 00:00:00 Rylan HAWLEY 350.1.13.10 i ty [facility] [place] [phone] [address] 2022-08-07 2022-08-07 Telephone [facility] 1.2.840.114 [id number] Univers 00:00:00 00:00:00 Rylan HAWLEY 350.1.13.10 i ty of [place] [id number] [address] 2022-07-22 2022-07-22 Refill [facility] 1.2.840.114 [id number] Univers 00:00:00 00:00:00 [facility] 350.1.13.10 it y of [facility] 4.2.7.2.686 Franki as ARDEN?BLEA [phone] [address] OFFICE [facility] 2022-07-16 2022-07-16 Emergency [facility] [id number] Univers 13:04:00 17:52:00 Grant HAWLEY 350.1.13.10 i ty of [facility] 4.2.7.2.[place] [id number] [facility] [address] 2022-07-16 2022-07-16 Outpatient R SONJA [facility] [[email or web address]] ERT [id number] Univers 12:45:00 14:29:[address] [facility] 2022-07-16 2022-07-16 Nurse Nurse, [facility] [[email or web address]] 1.2.840.114 [id number] Univers 12:45:00 13:05:00 Visit Unknown, [facility] [place] [facility] 350.1.13.10 ity of [place] 4.2.7.2.686 Franki as ARDEN?BLEA [id number] Ms di TAMAYO [address] MEDICAL OFFICE [facility] 2022-07-16 2022-07-16 Outpatient R SONJA [facility] [id number] Univers 12:45:00 12:45:00 SUE [facility] 2022-07-16 2022-07-16 Outpatient R ENZO [facility] [id number] Univers 12:00:00 12:00:[address] [facility] 2022-07-07 2022-07-07 Outpatient GC_TNC_Cher PRIV PRIV [id number] [facility] 00:00:00 00:00:00 ches_I [id number] Medica l 2022-07-05 2022-07-05 Outpatient R REBECCA [facility] [id number] Univers 11:00:00 11:56:18 [facility] 2022-07-05 2022-07-05 Office [facility] 1.2.840.114 [id number] Univers 11:00:00 11:56:18 Visit CotyPaxata 350.1.13.10 it y of [place] 4.2.7.2.686 Franki as ARDEN?BLEA [phone] Ms di TAMAYO 092 [facility] OFFICE [facility] 2022-06-17 2022-06-17 Telephone Allison [facility] [[email or web address]] [id number] Univers 00:00:00 00:00:00 Coty HAWLEY 350.1.13.10 i ty of [place] [id number] Me dicdenise NAL 044 [facility] 2022-06-14 2022-06-14 Patient Rambo [facility] [[email or web address]] 1.2.840.114 [id number] Univers 00:00:00 00:00:00 Secure Msg Rylan HANNA 350.1.13.10 ity of [place]2.7.2.[place] C[place] [id number] Majo Francis 044 [facility] 2022-06-13 2022-06-13 Office Allison [facility] [[email or web address]] 1.2.840.114 [id number] Univers 10:00:00 11:08:01 Visit Coty MARLEEN 350.1.13.10 i ty of [place] [id number] Ms dicme NAL [address] [place] [address] 2022-06-13 2022-06-13 Outpatient R ALLISON [facility] [id number] Univers 10:00:00 11:08:01 COTY [facility] 2022-06-13 2022-06-13 Patient Mary [facility] [[email or web address]] 1.2.840.114 [id number] Univers 00:00:00 00:00:00 Outreach Maru [facility] 350.1.13.10 ity of [place] 4.2.7.2.686 Franki as ARDEN?BLEA [phone] [address] 2022-06-11 2022-06-11 Telephone [facility]ACOMA[facility] 1.2.109.084 [id number] Univers 00:00:00 00:00:00 Coty MARLEEN 350.1.13.10 i ty of [place] [id number] [facility] NAL [address] [place] [address] 2022-06-10 2022-06-10 Patient Rambo [facility] [[email or web address]] 1.2.840.114 [id number] Univers 00:00:00 00:00:00 Secure Msg Rylan MARLEEN 350.1.13.10 ity of [place] [id number] [facility] NAL [address] [place] [address] 2022-06-04 2022-06-04 Outpatient R REBECCA [facility] [id number] Univers 11:00:00 11:43:[address] [facility] 2022-06-04 2022-06-04 Office [facility] 1.2.840.114 [id number] Univers 11:00:00 11:43:43 Visit Coty [facility] 350.1.13.10 it y of [place] 4.2.7.2.686 Franki as ARDEN?BLEA [id number] [address] OFFICE [facility] 2022-05-29 2022-05-29 Telemedici [facility] 1.2.840.114 [id number] Univers 15:00:00 15:40:00 ne Visit Rylan HAWLEY 350.1.13.10 ity [place] [id number] Ms di BOLANOS [address] [place] [address] 2022-05-29 2022-05-29 Outpatient R RAMBO [facility] [id number] Univers 15:00:00 15:00:[address] [facility] 2022-05-29 2022-05-29 [facility] 1.2.840.114 [id number] Univers 00:00:00 00:00:00 Rylan HAWLEY 350.1.13.10 i ty of [place] [id number] Ms di BOLANOS [address] [place] [address] 2022-05-27 2022-05-27 Telephone [facility] 1.2.840.114 [id number] Univers 00:00:00 00:00:00 Rylan HAWLEY 350.1.13.10 i ty of [place] [id number] Ms di BOLANOS 044 [facility] 2022-05-22 2022-05-22 Asparagus Cutter 2, Adc Lab [facility] [[email or web address]] 1.2.840.114 [id number] Univers 08:15:00 08:21:27 Visit Rylan Navarrete 350.1.13.10 ity [facility] 4.2.7.2.[place] [id number] [facility] 353 [facility] 2022-05-22 2022-05-22 Outpatient R RAMBO [facility] [id number] Univers 08:15:00 08:15:[address] [facility] 2022-05-21 2022-05-21 Outpatient R RAMBO [facility] [id number] Univers 14:00:00 15:48:[address] [facility] 2022-05-21 2022-05-[address] [facility] 1.2.840.114 [id number] Univers 14:00:00 15:48:28 Visit Rylan HAWLEY 350.1.13.10 i ty [facility] 4.2.7.2.[place] [id number] [facility] 044 [facility] 2022-05-02 2022-05-02 Telephone [facility] 1.2.840.114 [id number] Univers 00:00:00 00:00:00 Rylan MARLEEN 350.1.13.10 i ty [place] [id number] [address] 2022-04-20 2022-04-20 Emergency X REILLY [facility] [[email or web address]] ERT [id number] Univers 05:23:00 08:25:[address] [facility] 2022-04-20 2022-04-20 Emergency Leeroy Kraus [facility] [[email or web address]] 1.2.840. 114 [id number] Univers 05:23:00 08:25:00 Marietta Grover 350.1.13.10 [place]y [place].2.[place] [id number] [address] 2022-04-09 2022-04-09 Outpatient R SONJA [facility] [id number] Univers 11:20:00 12:16:[address] [facility] 2022-04-09 2022-04-09 Urgent Sue Grier [facility] [[email or web address]] 1.2.840.114 [id number] Univers 11:20:00 12:16:00 Care Unknown, Attending HEALTH 350.1.13.10 ity [facility] 4.2.7.2.686 Franki as ARDEN?BLEA [phone] [address] MEDICAL OFFICE BUILDING 2022-03-11 2022-03-11 (TEL) [facility] [id number] Co mmon 00:00:00 00:00:00 [facility] 2022-02-28 2022-02-28 SUB ANNUAL [facility] [id number] Common 00:00:00 00:00:00 [facility] WELLNESS - CHI VISIT [facility] 2022-02-28 2022-02-28 OFFICE [facility] [id number] Co mmon 00:00:00 00:00:00 VISIT EST Spir it PT LEVEL 3 - [facility] 2022-01-22 2022-01-22 Orders Doctor CHAIM 1.2.840.114 [id number] [employer] 00:00:00 00:00:00 Only Unassigned, [facility] 350.1.13.10 [facility] [place] [facility] 4.2.7.2.686 Franki as [phone] [facility] [address] 2022-01-16 2022-01-16 Office Lanny Johnston BCHerlinda 1.2.840.114 [id number] [facility] 08:30:00 10:39:27 Visit AMBULATOR 350.1.13.21 College Y 0.2.7.2.686 of [phone] [facility] jose carlos 395 e 2022-01-16 2022-01-16 Office FERNY Sauceda 1.2.840.114 [id number] 09:30:00 10:00:00 Visit Tziona AMBULATOR 350.1.13.21 College Y 0.2.7.2.686 of [id number] [facility] jose carlos 395 e 2022-01-08 2022-01-08 Orders Doctor CHAIM 1.2.840.114 [id number] Univers 00:00:00 00:00:00 Only Unassigned, HOLLEY 350.1.13.10 [facility] [place] [facility] 4.2.7.2.686 Franki as [phone] [facility] [address] 2022-01-07 2022-01-07 Prep For Aiden ALMARYURI 1.2.840.114 [id number] Univers 00:00:00 00:00:00 Surgery Blanca HAWLEY 350.1.13.10 i ty [place] [phone] Ms dic[address] 2022-01-03 2022-01-03 Outpatient R [facility] [id number] Univers 09:30:00 10:33:[address] [facility] 2022-01-03 2022-01-03 Office [facility] 1.2.441.248 [id number] Univers 09:30:00 10:33:48 Visit Blanca HAWLEY 350.1.13.10 i ty of [place] [id number] Ms dical NAL 188 [facility] 2022-01-03 2022-01-03 Orders Doctor CHAIM 1.2.840.114 [id number] Univers 00:00:00 00:00:00 Only Unassigned, HOLLEY 350.1.13.10 ity of [place] [facility] 4.2.7.2.686 Franki as [phone] [address] 2022-01-02 2022-01-02 [facility]patient [facility] [id number] Univers 08:56:15 23:59:[address] [facility] 2022-01-02 2022-01-02 Hospital [facility] 1.2.840.114 [id number] Univers 08:56:15 23:59:00 Encounter Blanca HAWLEY 350.1.13.10 ity [facility] [place] [id number] [facility] [address] 2022-01-02 2022-01-02 Orders Doctor CHAIM 1.2.840.114 [id number] Univers 00:00:00 00:00:00 Only Unassigned, HOLLEY 350.1.13.10 ity of [place] [facility] 4.2.7.2.686 Franki as [phone] [address] 2021-12-27 2021-12-27 Outpatient [facility] [id number] Univers 12:00:00 12:00:[address] [facility] 2021-12-20 2021-12-20 Outpatient [facility] [id number] Univers 14:00:00 14:35:[address] [facility] 2021-12-20 2021-12-20 Office [facility] 1.2.730.785 [id number] Univers 14:00:00 14:35:05 Visit Blanca MARLEEN 350.1.13.10 i ty [place] [id number] Ms dical [facility] 188 [facility] 2021-12-18 2021-12-18 Transition MICHEL Joseph 1.2.840.114 [id number] Univers 00:00:00 00:00:00 of Care Stacie ROY 350.1.13.10 it y of [place] [id number] [facility] [address] 2021-12-17 2021-12-17 [facility]phone [facility] 1.2.840.114 [id number] Univers 00:00:00 00:00:00 Blanca JOSENASRA 350.1.13.10 i ty [place] [id number] [address] 2021-12-13 2021-12-16 [facility]patient [facility] [id number] Univers 14:31:00 15:35:[address] [facility] 2021-12-13 2021-12-16 Hospital Halina Kurtz [facility] [[email or web address]] 1.2.84 0.114 [id number] Univers 14:31:00 15:35:00 Encounter Jeevan Roman 350.1.13.10 ity of [place] 4.2.7.2.686 [facility] [phone] [facility] [address] 2021-12-13 2021-12-13 (TEL) STLMLC STLMLC [id number] Co mmon 00:00:00 00:00:00 [facility] 2021-12-05 2021-12-05 (TEL) STLMLC STLMLC [id number] Co mmon 00:00:00 00:00:00 [facility] 2021-11-28 2021-11-28 Office FERNY GANN 1.2.102.268 [id number] [facility] 09:41:00 10:59:24 Visit MOISÉS GARCIA 350.1.13.21 College Y 0.2.7.2.686 of [id number] [facility] 375 e 2021-11-20 2021-11-20 (TEL) STLMLC STLMLC [id number] Co mmon 00:00:00 00:00:00 [facility] 2021-11-19 2021-11-19 (TEL) STLMLC STLMLC [id number] Co mmon 00:00:00 00:00:00 [facility] 2021-11-13 2021-11-13 OFFICE STLMLC STLMLC [id number] Co mmon 00:00:00 00:00:[address] 2021-11-13 2021-11-13 (TEL) STLMLC STLMLC [id number] Co mmon 00:00:00 00:00:00 [facility] 2021-11-09 2021-11-09 Orders Doctor CHAIM 1.2.840.114 [id number] Univers 00:00:00 00:00:00 Only Unassigned, HOLLEY 350.1.13.10 ity of [place] [facility] 4.2.7.2.686 Franki as [phone] [facility] [address] 2021-11-09 2021-11-09 (TEL) STLMLC STLMLC [id number] Co mmon 00:00:00 00:00:00 [facility] 2021-11-07 2021-11-07 (TEL) STLMLC STLMLC [id number] Co mmon 00:00:00 00:00:00 [facility] 2021-11-01 2021-11-01 OFFICE STLMLC STLMLC [id number] Co mmon 00:00:00 00:00:[address] 2021-10-29 2021-10-29 (TEL) STLMLC STLMLC [id number] Co mmon 00:00:00 00:00:00 [facility] 2021-10-25 2021-10-25 OFFICE STLMLC STLMLC [id number] Co mmon 00:00:00 00:00:00 VISIT [facility] - CHI LEVEL 1 [facility] 2021-09-19 2021-09-19 OFFICE STLMLC STLMLC [id number] Co mmon 00:00:00 00:00:00 VISIT [facility] ESTAB PT - CHI LEVEL 2 [facility] 2021-09-18 2021-09-18 (TEL) STLMLC STLMLC [id number] Co mmon 00:00:00 00:00:00 [facility] - [facility] 2021-08-31 2021-08-31 Outpatient [facility] [id number] [facility] 09:02:54 10:42:34 Cesar Medictara e 2021-08-26 2021-08-26 Emergency [facility] [id number] Univers 10:53:00 13:52:00 HALINA ittatyana of [facility] 2021-08-26 2021-08-26 Emergency [facility] 1.2.840.114 [id number] Univers 10:53:00 13:52:00 Halina HAWLEY 350.1.13.10 ity of [place] 4.2.7.2.686 [facility] [id number] [facility] manny [address] 2021-08-26 2021-08-26 Orders Doctor CHAIM 1.2.840.114 [id number] [facility] 00:00:00 00:00:00 Only Unassigned, HOLLEY 350.1.13.10 ity of [place] [facility] 4.2.7.2.686 [facility] [phone] [facility] manny [address] 2021-08-24 2021-08-24 Office FERNY GANN 1.2.990.761 [id number] [facility] 09:35:23 11:37:52 Visit YOCHAI AMBULATOR 350.1.13.21 College Y 0.2.7.2.686 [id number] [facility] jose carlos 375 e 2021-08-15 2021-08-15 (TEL) STLMLC STLMLC [id number] Co mmon 00:00:00 00:00:00 [facility] - [facility] 2021-08-13 2021-08-13 (TEL) STLMLC STLMLC [id number] Co mmon 00:00:00 00:00:00 [facility] 2021-07-31 2021-07-31 (TEL) STLMLC STLMLC [id number] Co mmon 00:00:00 00:00:00 [facility] 2021-07-31 2021-07-31 OFFICE STLMLC STLMLC [id number] Co mmon 00:00:00 00:00:00 VISIT Spirit ESTAB PT - CHI LEVEL 4 [facility] 2021-06-27 2021-06-27 OFFICE STLMLC STLMLC [id number] Co mmon 00:00:00 00:00:00 VISIT EST Spir it PT LEVEL 3 - [facility] 2021-06-05 2021-06-05 [facility] [id number] 12:01:16 23:59:00 Encounter [facility] 2021-06-05 2021-06-05 Outpatient REJI [facility] [id number] [facility] 12:01:16 23:59:00 [facility] 2021-06-05 2021-06-05 Office REJI [facility] 1.2.811.867 [id number] [facility] 10:31:09 13:24:42 Visit [facility] AMBULATOR 350.1.13.21 College Y 0.2.7.2.686 [id number] [facility] 375 e 2021-06-05 2021-06-05 Outside [facility] [id number] 00:00[facility]00 00:00:00 Orders [facility] 2021-06-01 2021-06-01 (TEL) STLMLC STLC [id number] Co mmon 00:00:00 00:00:00 [facility] 2021-05-29 2021-05-29 (TEL) STLMLC STLC [id number] Co mmon 00:00:00 00:00:00 [facility] 2021-05-28 2021-05-28 (TEL) STLMLC STLMLC [id number] Co mmon 00:00:00 00:00:00 [facility] 2021-05-28 2021-05-28 OFFICE STLMLC STLMLC [id number] Co mmon 00:00:00 00:00:00 VISIT EST Spir it PT LEVEL 3 - [facility] 2021-04-12 2021-04-12 (TEL) STLMLC STLMLC [id number] Co mmon 00:00:00 00:00:00 [facility] 2021-04-12 2021-04-12 (TEL) STLMLC STLMLC [id number] Co mmon 00:00:00 00:00:00 [facility] 2021-03-16 2021-03-16 (TEL) STLMLC STLMLC [id number] Co mmon 00:00:00 00:00:00 [facility] 2021-03-01 2021-03-01 OFFICE STLMLC STLMLC [id number] Co mmon 00:00:00 00:00:00 VISIT [facility] PT - [facility] LEVEL 2 [facility] 2021-02-28 2021-02-28 (TEL) STLMLC STLMLC [id number] Co mmon 00:00:00 00:00:00 [facility] 2021-01-31 2021-01-31 OFFICE STLMLC STLMLC [id number] Co mmon 00:00:00 00:00:00 VISIT EST Spir it PT LEVEL 3 [facility] 2021-01-30 2021-01-30 (TEL) STLMLC STLMLC [id number] Co mmon 00:00:00 00:00:00 [facility] 2021-01-29 2021-01-29 (TEL) STLMLC STLMLC [id number] Co mmon 00:00:00 00:00:00 [facility] 2021-01-11 2021-01-11 (TEL) STLMLC STLMLC [id number] Co mmon 00:00:00 00:00:00 [facility] 2021-01-10 2021-01-10 OFFICE STLMLC STLMLC [id number] Co mmon 00:00:00 00:00:00 VISIT [facility] ESTAB PT - [facility] LEVEL 1 [facility] 2021-01-02 2021-01-02 (TEL) STLMLC STLMLC [id number] Co mmon 00:00:00 00:00:00 [facility] 2020-12-21 2020-12-21 OFFICE STLMLC STLMLC [id number] Co mmon 00:00:00 00:00:00 VISIT EST Spir it PT LEVEL 3 - [facility] 2020-12-08 2020-12-08 Outpatient GC_TNC_Cher PRIV PRIV [id number] [facility] 00:00:00 00:00:00 ches_I [id number] Medica l 2020-11-06 2020-11-06 Outpatient STLMLC STLMLC [id number] Common 00:00:00 00:00:00 [facility] 2020-11-06 2020-11-06 Outpatient STLMLC STLMLC [id number] Common 00:00:00 00:00:00 [facility] 2020-10-30 2020-10-30 Outpatient STLMLC STLMLC [id number] Common 00:00:00 00:00:00 [facility] 2020-09-19 2020-09-19 Outpatient STLMLC STLMLC [id number] Common 00:00:00 00:00:00 [facility] 2020-08-16 2020-08-16 Outpatient STLMLC STLMLC [id number] Common 00:00:00 00:00:00 [facility] 2020-08-10 2020-08-10 Outpatient STLMLC STLMLC [id number] Common 00:00:00 00:00:00 [facility] 2020-08-04 2020-08-04 Outpatient STLMLC STLMLC [id number] Common 00:00:00 00:00:00 [facility] 2020-08-03 2020-08-03 Outpatient STLMLC STLMLC [id number] Common 00:00:00 00:00:00 [facility] 2020-08-02 2020-08-02 Outpatient STLMLC STLMLC [id number] Common 00:00:00 00:00:00 [facility] 2020-07-20 2020-07-20 Outpatient STLMLC STLMLC [id number] Common 00:00:00 00:00:00 [facility] 2020-07-17 2020-07-17 Outpatient STLMLC STLMLC [id number] Common 00:00:00 00:00:00 [facility] 2020-07-13 2020-07-13 Outpatient STLMLC STLMLC [id number] Common 00:00:00 00:00:00 [facility] 2020-07-12 2020-07-12 Office FERNY GANN 1.2.750.167 [id number] [facility] 11:29:14 12:34:28 [facility] 350.1.13.21 College Y 0.2.7.2.686 of [id number] [facility] 375 e 2020-06-30 2020-06-30 Outpatient STLMLC STLMLC [id number] Common 00:00:00 00:00:00 [facility] 2020-06-28 2020-06-28 Outpatient STLMLC STLMLC [id number] Common 00:00:00 00:00:00 [facility] 2020-06-18 2020-06-18 Outpatient STLMLC STLMLC [id number] Common 00:00:00 00:00:00 [facility] 2020-06-09 2020-06-09 Outpatient STLMLC STLMLC [id number] Common 00:00:00 00:00:00 [facility] 2020-06-09 2020-06-09 Outpatient STLMLC STLMLC [id number] Common 00:00:00 00:00:00 [facility] 2020-05-19 2020-05-19 Outpatient STLMLC STLMLC [id number] Common 00:00:00 00:00:00 [facility] 2020-05-04 2020-05-04 Outpatient STLMLC STLMLC [id number] Common 00:00:00 00:00:00 [facility] 2020-04-28 2020-04-28 Outpatient STLMLC STLMLC [id number] Common 00:00:00 00:00:00 [facility] 2020-04-28 2020-04-28 Outpatient STLMLC STLMLC [id number] Common 00:00:00 00:00:00 [facility] 2020-04-26 2020-04-26 Outpatient STLMLC STLMLC [id number] Common 00:00:00 00:00:00 [facility] 2020-04-25 2020-04-25 Outpatient STLMLC STLMLC [id number] Common 00:00:00 00:00:00 [facility] 2020-04-18 2020-04-18 Outpatient STLMLC STLMLC [id number] Common 00:00:00 00:00:00 [facility] 2020-04-10 2020-04-10 Outpatient STLMLC STLMLC [id number] Common 00:00:00 00:00:00 [facility] 2020-04-06 2020-04-06 Outpatient STLMLC STLMLC [id number] Common 00:00:00 00:00:00 [facility] 2020-02-11 2020-02-11 Outpatient STLMLC STLMLC [id number] Common 00:00:00 00:00:00 [facility] 2020-02-10 2020-02-10 Outpatient STLMLC STLMLC [id number] Common 00:00:00 00:00:00 [facility] 2020-02-04 2020-02-04 Outpatient STLMLC STLMLC [id number] Common 00:00:00 00:00:00 [facility] 2020-01-31 2020-01-31 Outpatient STLMLC STLMLC [id number] Common 00:00:00 00:00:00 [facility] 2020-01-27 2020-01-27 Outpatient STLMLC STLMLC [id number] Common 00:00:00 00:00:00 [facility] 2020-01-20 2020-01-20 Outpatient STLMLC STLMLC [id number] Common 00:00:00 00:00:00 [facility] 2020-01-17 2020-01-17 Outpatient STLMLC STLMLC [id number] Common 00:00:00 00:00:00 [facility] 2020-01-13 2020-01-13 Outpatient STLMLC STLMLC [id number] Common 00:00:00 00:00:00 [facility] 2020-01-10 2020-01-10 Outpatient STLMLC STLMLC [id number] Common 00:00:00 00:00:00 [facility] 2020-01-10 2020-01-10 Outpatient STLMLC STLMLC [id number] Common 00:00:00 00:00:00 [facility] 2020-01-06 2020-01-06 Outpatient STLMLC STLMLC [id number] Common 00:00:00 00:00:00 [facility] 2020-01-04 2020-01-04 Outpatient STLMLC STLMLC [id number] Common 00:00:00 00:00:00 [facility] 2019-12-31 2019-12-31 Outpatient STLMLC STLMLC [id number] Common 00:00:00 00:00:00 [facility] 2019-12-27 2019-12-27 Outpatient STLMLC STLMLC [id number] Common 00:00:00 00:00:00 [facility] 2019-12-27 2019-12-27 Outpatient STLMLC STLMLC [id number] Common 00:00:00 00:00:00 [facility] 2019-12-22 2019-12-22 Outpatient STLMLC STLMLC [id number] Common 00:00:00 00:00:00 [facility] 2019-12-22 2019-12-22 Outpatient STLMLC STLMLC [id number] Common 00:00:00 00:00:00 [facility] 2019-12-22 2019-12-22 Outpatient STLMLC STLMLC [id number] Common 00:00:00 00:00:00 [facility] [place] [facility] 2019-12-16 2019-12-16 Outpatient Elin Galvan [id number] Common 09:00:00 09:00:00 [facility] Family [facility] 2019-05-18 2019-05-18 Orders Doctor CHAIM 1.2.840.114 [id number] Univers 00:00:00 00:00:00 Only Unassigned, HOLLEY 350.1.13.10 [place] of [place] [facility] 4.2.7.2.686 Franki as [phone] [address] 2019-05-18 2019-05-18 Orders Doctor CHAIM 1.2.840.114 [id number] 00:00:00 00:00:00 Only Unassigned, H[place]LEY 350.1.13.10 [place] [facility] 4.2.7.2.[id number] [facility] 2019-05-16 2019-05-16 [facility] 1.2.840.114 [id number] [facility] 00:00:00 00:00:00 Kaleb Hawley 350.1.13.10 ity of [place].2.[place] Profess[place] [phone] Ms dic[address] 2019-05-16 2019-05-16 [facility] 1.2.840.114 [id number] 00:00:00 00:00:00 Kaleb Hawley 350.1.13.10 [place] 4.2.7.2.686 Professio [id number] [address] 2019-04-04 2019-04-04 Emergency X ELAINE, [facility] [[email or web address]] ERT [id number] Univers 15:59:44 18:51:[address] [facility] 2014-10-04 2014-10-04 Outpatient FERNY CABRERA [facility] [id number] [facility] 13:17:59 15:14:08 CHAIM Guerrero Medictara e 2014-10-04 2014-10-04 Outpatient FERNY CHRISTIANSON [facility] [id number] [facility] 08:11:06 13:52:44 SMILEY Guerrero Medicin e Results Test Description Test Time Test Comments Results Result Comments Source COMP. METABOLIC PANEL (75808) 2022-07-16 19:20:21 Test Item Value Reference Range Interpretation Comme nts NA (test code = 0626373447) 139 mmol/L 135-145 K (test code = 2975453279) 4.2 mmol/L 3.5-5.0 CL (test code = 3984124677) 94 mmol/L 98-108 L CO2 TOTAL (test code = 1099376465) 30 mmol/L 23-31 AGAP (test code = 9314989742) 15 2-16 BUN (test code = 1542604047) 43 mg/dL 7-23 H GLUCOSE (test code = 4114303974) 111 mg/dL 70-110 H CREATININE (test code = 1.29 mg/dL 0.50-1.04 H 2308476250) TOTAL BILI (test code = 0.9 mg/dL 0.1-1.4 7258501583) CALCIUM (test code = 8386918799) 9.9 mg/dL 8.6-10.6 T PROTEIN (test code = 7856224188) 8.1 g/dL 6.3-8.2 ALBUMIN (test code = 7317838301) 4.6 g/dL 3.5-5.0 ALK PHOS (test code = 3446160976) 81 U/L 34-122 ALTv (test code = 1742-6) 16 U/L 5-35 AST(SGOT) (test code = 7329010277) 36 U/L 13-40 eGFR (test code = 8444803534) 39.5 mL/min/1.73m2 FABRICE (test code = FABRICE) [...] tests). Lab Interpretation (test code = Abnormal 73747-8) [facility]20[facility]21 Test Item Value Reference Range Interpretation Comments LIPASE (test code = 9090513335) 178 U/L 0-220 Lab Interpretation (test code = Normal 44439-7) [facility] WITH [id number] 19:04:39 Test Item Value Reference Range Interpretation Comments WBC (test code = 10.55 See_Comment [Automated 1090-2) message] The sy stem which generated this result transmitted reference range : 4.30 - 11.10 10*3/?L. The reference range was not used to interpret this result as normal/abnormal . RBC (test code = 4.31 See_Comment [Automated 520-8) message] The sy stem which generated this [...] RDW-SD (test code = 41.9 fL 39.0-49.9 34434-6) RDW-CV (test code = 12.0 % 12.0-15.5 788-0) PLT (test code = 183 See_Comment [Automated 777-3) message] The sy stem which generated this result transmitted reference range : 166 - 358 10*3/ ?L. The reference r mayr was not used to interpret this result as normal/abnormal . MPV (test code = 10.1 fL 9.5-12.9 49767-9) NRBC/100 WBC (test 0.0 See_Comment [Automat ed code = 8913220397) message] The system which generated this result transmitted reference range : 0.0 - 10.0 /100 WBCs. The refer ence range was not u sed to interpret th is result as normal/abnormal . NRBC x10^3 (test code See_Comment [Auto mated = 2809264392) message] The s ystem which generated this result transmitted reference range : 10*3/?L. The reference range was not used to interpret this result as normal/abnormal . GRAN MAT (NEUT) % 80.6 % (test code = 770-8) IMM GRAN % (test code 0.50 % = 3467992802) LYMPH % (test code = 11.1 % 736-9) MONO % (test code = 5.7 % 5905-5) EOS % (test code = 1.6 % 713-8) BASO % (test code = 0.5 % 706-2) GRAN MAT x10^3(ANC) 8.51 10*3/uL 1.88-7.09 H (test code = 9203789122) IMM GRAN x10^3 (test 0.05 10*3/uL 0.00-0.06 code = 0545749726) LYMPH x10^3 (test code 1.17 10*3/uL 1.32-3.29 L = 731-0) MONO x10^3 (test code 0.60 10*3/uL 0.33-0.92 = 742-7) EOS x10^3 (test code = 0.17 10*3/uL 0.03-0.39 711-2) BASO x10^3 (test code 0.05 10*3/uL 0.01-0.07 = 704-7) Lab Interpretation Abnormal (test code = 44673-6) [facility] Whole [id number] 19:00:58 Test Item Value Reference Range Interpretation Comments LACTIC ACID (test code = 2.92 mmol/L 0.50-2.20 H 3308564325) Lab Interpretation (test code = Abnormal 53294-2) [facility] URINALYSIS W SPECIFIC [id number] 16:14:00 Test Item Value Reference Range Interpretation [...] 3267) Lab Interpretation (test code Abnormal = 59802-9) [facility] URINALYSIS W SPECIFIC [id number] 16:14:00 Test Item Value Reference Range Interpretation [...] 3267) Lab Interpretation (test code Abnormal = 87844-7) [facility] W SPECIFIC [id number] 16:14:00 Test Item Value Reference Range Interpretation [...] 3267) Lab Interpretation (test code Abnormal = 07212-0) [facility] - Code Mqjcvs2610-08-11 11:56:25 Test Item Value Reference Interpretation Comments Range TROPONIN I (test 0.005 ng/mL See_Comment [Automated code = 8346098017) message] The system which generated this result [...] biotin. Lab Interpretation Normal (test code = 95239-5) [facility] - Code Mxujpn0089-84-47 11:55:08 Test Item Value Reference Range Interpretation Comments APTT Patient (test See_Comment [Automat ed code = 3173-2) message] The system which generated this result transmitted reference range : 23 - 38 Seconds . The reference range was not used to interpr et this result as normal/abnormal . FABRICE (test code = FABRICE) The [facility] [[email or web address]] patient population mean normal value for aPTT is 30 seconds. Lab Interpretation Normal (test code = 16114-3) [facility]thrombin Time / INR - Code Umbird0446-24-46 11:53:07 Test Item Value Reference Range Interpretation [...] tions. Lab Interpretation (test Normal code = 06057-2) [facility] (NA, K, CL, CO2, Glucose, BUN, Creatinine, CA) - Code Dlpjdp8019-87-17 11:45:06 Test Item Value Reference Range Interpretation Comments NA (test code = 139 mmol/L 135-145 2304225102) K (test code = 3.4 mmol/L 3.5-5.0 L 1231024871) CL (test code = 101 mmol/L 98-108 3335745832) CO2 TOTAL (test code = 31 mmol/L 23-31 0060885346) AGAP (test code = 2-16 9597362335) BUN (test code = 19 mg/dL 7-23 3280409521) GLUCOSE (test code = 112 mg/dL 70-110 H 9416281484) CREATININE (test code = 0.97 mg/dL 0.50-1.04 2406881736) CALCIUM (test code = 9.8 mg/dL 8.6-10.6 0486059733) eGFR (test code = mL/min/1.73m2 7423270332) FABRICE (test code = FABRICE) Association of [...] tests). Lab Interpretation Abnormal (test code = 29756-1) [facility] without Diff - Code Ybffsm0466-21-64 11:38:02 Test Item Value Reference Range Interpretation Comments WBC (test code = See_Comment [Automated message] The 6690-2) system which ge nerated this result tra nsmitted reference range : 4.30 - 11.10 10*3/?L. The reference range was not used to interpr et this result as normal/abnormal . RBC (test code = See_Comment [Automated message] The 789-8) system which nerated this result tra nsmitted reference range [...] See_Comment [Automated message] The 777-3) system which nerated this result tra nsmitted reference range : 166 - 358 10*3/?L. Th e reference range was not used to interpr et this result as normal/abnormal . MPV (test code = 9.7 fL 9.5-12.9 71258-3) RDW-CV (test code = 13.0 % 12.0-15.5 788-0) RDW-SD (test code = 44.6 fL 39.0-49.9 80758-2) NRBC x10^3 (test See_Comment [Automated message] The code = [id number]) system [facility] generated this result tra nsmitted reference range : 10*3/?L. The reference r mary was not used to int erpret this result as normal/abnormal . NRBC/100 WBC (test See_Comment [Automat ed message] The code = [id number]) system [facility] generated this result tra nsmitted reference range : 0.0 - 10.0 /100 WBCs. The reference range was not used to interpr et this result as normal/abnormal . IPF % (test code = [id number]) [facility] GLUCOSE (AUTOMATED)2022-04-20 11:25:37 Test Item Value Reference Range Interpretation Comments POCT GLU (test code = 112 mg/dL 70-110 H Notifi ed Provider [id number]) Lab Interpretation (test Abnormal code = 88978-7) [facility] [id number] 18:07:00 Test Item Value Reference Range Interpretation [...] 3267) Lab Interpretation (test code Abnormal = 99183-2) [facility] 00:00:00 Test Item Value Reference Range Interpretation Comments LDL Chol. (Direct) 43 mg/dL See_Comment [Automat ed message] The (test code = system which ge nerated 15176-9) this result tra nsmitted reference range : 0-99 mg/dL. The refe rence range was not used to interpret this result as normal/abnormal . Hemoglobin [id number] 00:00:00 Test Item Value Reference Range Interpretation [...] 111 mg/dL See_Comment H [Autom ated message] 2345-7) The system [employer] generated this result transmitted ref erence range: 70-99 mg /dL. The reference r mary was not used to interpret this result as normal/abnor mal. BUN (test code = 18 mg/dL See_Comment [Automated message] 3094-0) The system [employer] generated this result transmitted ref erence range: 8-27 mg/ dL. The reference r mary was not used to interpret this result as normal/abnor mal. Creatinine (test code 0.94 mg/dL See_Comment [Auto mated message] = 2160-0) The system [employer] generated this result transmitted ref erence range: 0.57-1.0 0 mg/dL. The refe rence range was not u sed to interpret this result as normal/abnor mal. BUN/Creatinine Ratio 19 12-28 (test code = 3097-3) Sodium (test code = 141 mmol/L See_Comment [Automa esha message] 5966-2) The system [employer] generated this result transmitted ref erence range: 134-144 mmol/L. The ref erence range was not u sed to interpret this result as normal/abnor mal. Potassium (test code = 4.9 mmol/L See_Comment [Aut omated message] 0193-3) The system [employer] generated this result transmitted ref erence range: 3.5-5.2 mmol/L. The ref erence range was not u sed to interpret this result as normal/abnor mal. Chloride (test code = 101 mmol/L See_Comment [Auto mated message] 1207-0) The system [employer] generated this result transmitted ref erence range: 96-106 m mol/L. The reference r mary was not used to interpret this result as normal/abnor mal. Carbon Dioxide, Total 26 mmol/L See_Comment [Auto mated message] (test code = 2027-9) The sys tem which generated this result transmitted ref erence range: 20-29 mm ol/L. The reference r mary was not used to interpret this result as normal/abnor mal. Calcium (test code = 10.4 mg/dL See_Comment H [Autom ated message] 85891-0) The system [employer] generated this result transmitted ref erence range: 8.7-10.3 mg/dL. The refe rence range was not u sed to interpret this result as normal/abnor mal. Protein, Total (test 7.1 g/dL See_Comment [Autom ated message] code = 2885-2) The system [facility] generated this result transmitted ref erence range: 6.0-8.5 g/dL. The reference r mary was not used to interpret this result as normal/abnor mal. Albumin (test code = 4.4 g/dL See_Comment [Autom ated message] 1751-7) The system [facility] generated this result transmitted ref erence range: 3.6-4.6 g/dL. The reference r mary was not used to interpret this result as normal/abnor mal. Globulin, Total (test 2.7 g/dL See_Comment [Auto mated message] code = 77774-7) The system [facility] generated this result transmitted ref erence range: 1.5-4.5 g/dL. The reference r mary was not used to interpret this result as normal/abnor mal. A/G Ratio (test code = 1.6 1.2-2.2 1759-0) Bilirubin, Total (test 0.5 mg/dL See_Comment [Aut omated message] code = 1975-2) The system [facility] generated this result transmitted ref erence range: 0.0-1.2 mg/dL. The reference r mary was not used to interpret this result as normal/abnor mal. Alkaline Phosphatase 94 IU/L See_Comment [Autom ated message] (test code = 6768-6) The [facility] tem which generated this result transmitted ref erence range: 44-121 I U/L. The reference r mary was not used to interpret this result as normal/abnor mal. AST (SGOT) (test code 22 IU/L See_Comment [Auto mated message] = 1920-8) The system [facility] generated this result transmitted ref erence range: 0-40 IU/ L. The reference range was not used to int erpret this result as normal/abnormal . ALT (SGPT) (test code 11 IU/L See_Comment [Auto mated message] = 1742-6) The system [facility] generated this result transmitted ref erence range: 0-32 IU/ L. The reference range was not used to int erpret this result as normal/abnormal . CBC With Differential/[id number] 00:00:00 Test Item Value Reference Range Interpretation [...] : 0.1-0.9 x10E3/u L. The reference r mary was [...] % Not Estab. % (test code = 24895-8) Immature Grans (Abs) 0.0 x10E3/uL See_Comment [Autom ated (test code = 64768-0) messag e] The system which generated this result transmitted reference range : 0.0-0.1 x10E3/u L. The reference r mary was not used to interpret this result as normal/abnormal . NRBC (test code = 66632-7) Hematology Comments: (test code = 84706-8) Lipid Panel w/ Chol/HDL [id number] 00:00:00 Test Item Value Reference Range Interpretation Comments Cholesterol, Total 109 mg/dL See_Comment [Automat ed message] (test code = 2093-3) The sys tem which generated this result transmitted ref erence range: 100-199 mg/dL. The reference r mary was not used to interpret this result as normal/abnor mal. Triglycerides (test 158 mg/dL See_Comment H [Automa esha message] code = 2571-8) The system [facility] generated this result transmitted ref erence range: 0-149 mg /dL. The reference r mary was not used to interpret this result as normal/abnor mal. HDL Cholesterol (test 41 mg/dL See_Comment [Auto mated message] code = 2085-9) The system [facility] generated this result transmitted ref erence range: >39 mg/d L. The reference range was not used to int erpret this result as normal/abnormal . T. Chol/HDL Ratio (test 2.7 ratio See_Comment [Au tomated message] code = 9830-1) The system [facility] generated this result transmitted ref erence range: 0.0-4.4 ratio. The reference r mary was not used to interpret this result as normal/abnor mal. CBC WITH [id number] 11:45:25 Test Item Value Reference Range Interpretation Comments WBC (test code = See_Comment [Automated 6690-2) message] The sy stem [...] RDW-SD (test code = 48.4 fL 39-49.9 31342-5) RDW-CV (test code = 13.6 % 12-15.5 788-0) PLT (test code = See_Comment [Automated 777-3) message] The sy stem which generated this result transmitted reference range : 166 - 358 10*3/ ?L. The reference r mary was not used to interpret this result as normal/abnormal . MPV (test code = 9.8 fL 9.5-12.9 53106-9) NRBC/100 WBC (test See_Comment [Automat ed code = 2753565417) message] The system which generated this result transmitted reference range : 0.0 - 10.0 /100 WBCs. The refer ence range was not u sed to interpret th is result as normal/abnormal . NRBC x10^3 (test code See_Comment [Auto mated = 8447225470) message] The s ystem which generated this result transmitted reference range : 10*3/?L. The reference range was not used to interpret this result as normal/abnormal . GRAN MAT (NEUT) % 59.5 % (test code = 770-8) IMM GRAN % (test code 0.50 % = 3474576556) LYMPH % (test code = 24.4 % 736-9) MONO % (test code = 12.5 % 5905-5) EOS % (test code = 2.2 % 713-8) BASO % (test code = 0.9 % 706-2) GRAN MAT x10^3(ANC) 5.19 10*3/uL 1.88-7.09 (test code = 2976514675) IMM GRAN x10^3 (test 0.04 10*3/uL 0-0.06 code = 8761498430) LYMPH x10^3 (test code 2.13 10*3/uL 1.32-3.29 = 731-0) MONO x10^3 (test code 1.09 10*3/uL 0.33-0.92 H = 742-7) EOS x10^3 (test code = 0.19 10*3/uL 0.03-0.39 711-2) BASO x10^3 (test code 0.08 10*3/uL 0.01-0.07 H = 704-7) Lab Interpretation Abnormal (test code = 61078-1) [id number] Test Item Value Reference Interpretation Comments Range TROPONIN I (test <0.012 See_Comment [Automated code = 4507822639) message] The system which generated this result [...] biotin. Lab Interpretation Normal (test code = 53118-1) [facility]. METABOLIC PANEL ([id number] 16:55:56 Test Item Value Reference Range Interpretation Comments NA (test code = 124 mmol/L 135-145 L 2903366374) K (test code = 4.5 mmol/L 3.5-5.0 0681735207) CL (test code = 88 mmol/L 98-108 L 2611303523) CO2 TOTAL (test code = 20 mmol/L 23-31 L 3601236630) AGAP (test code = 2-16 7960077880) BUN (test code = 22 mg/dL 7-23 1217570589) GLUCOSE (test code = 148 mg/dL 70-110 H 8135389843) CREATININE (test code = 1.56 mg/dL 0.50-1.04 H 2523078565) TOTAL BILI (test code = 0.7 mg/dL 0.1-1.1 5345688590) CALCIUM (test code = 10.3 mg/dL 8.6-10.6 5055786684) T PROTEIN (test code = 7.6 g/dL 6.3-8.2 0251399462) ALBUMIN (test code = 4.6 g/dL 3.5-5.0 4578103159) ALK PHOS (test code = 89 U/L 34-122 2683409101) ALTv (test code = 16 U/L 5-35 1742-6) AST(SGOT) (test code = 40 U/L 13-40 8386750982) eGFR (test code = mL/min/1.73m2 9125771642) FABRICE (test code = FABRICE) Association of [...] tests). Lab Interpretation Abnormal (test code = 73646-6) [facility] WITH [id number] 16:44:17 Test Item Value Reference Range Interpretation Comments WBC (test code = See_Comment [Automated 6690-2) message] The sy stem [...] RDW-SD (test code = 39.6 fL 39.0-49.9 31132-6) RDW-CV (test code = 12.0 % 12.0-15.5 788-0) PLT (test code = See_Comment [Automated 777-3) message] The sy stem which generated this result transmitted reference range : 166 - 358 10*3/ ?L. The reference r mary was not used to interpret this result as normal/abnormal . MPV (test code = 9.4 fL 9.5-12.9 L 68680-3) NRBC/100 WBC (test See_Comment [Automat ed code = 1877369423) message] The system which generated this result transmitted reference range : 0.0 - 10.0 /100 WBCs. The refer ence range was not u sed to interpret th is result as normal/abnormal . NRBC x10^3 (test code <0.01 See_Comment [Auto mated = 6751065264) message] The s ystem which generated this result transmitted reference range : 10*3/?L. The reference range was not used to interpret this result as normal/abnormal . GRAN MAT (NEUT) % 70.6 % (test code = 770-8) IMM GRAN % (test code 0.60 % = 3051414298) LYMPH % (test code = 19.8 % 736-9) MONO % (test code = 7.7 % 5905-5) EOS % (test code = 0.7 % 713-8) BASO % (test code = 0.6 % 706-2) GRAN MAT x10^3(ANC) 6.20 10*3/uL 1.88-7.09 (test code = 8614407613) IMM GRAN x10^3 (test 0.05 10*3/uL 0.00-0.06 code = 8665826479) LYMPH x10^3 (test code 1.74 10*3/uL 1.32-3.29 = 731-0) MONO x10^3 (test code 0.68 10*3/uL 0.33-0.92 = 742-7) EOS x10^3 (test code = 0.06 10*3/uL 0.03-0.39 711-2) BASO x10^3 (test code 0.05 10*3/uL 0.01-0.07 = 704-7) Lab Interpretation Abnormal (test code = 91047-8) [facility] BranchRAD, CHEST, 2 [id number] 13:55:00Reason for Exam:->SOB (shortness of breath) [facility] : 1940 Sex: FFINAL REPORT [...] with trace left effusion. Signed: Benjy Gee MDReport Verified Date/Time: 06/05/2021 13:55:50 Reading Location: [facility] Radiology Reading Room TROCARDIOGRAM [id number] 17:14:52Result approved by Moisés Gann MD on 07/12/20"
[2022-08-12] MEDS ORDERED: ACETAMINOPHEN 325 MG TABLET PO PRN (11:56)
[2022-08-12] MEDS ORDERED: ONDANSETRON 4 MG/2 ML VIAL IV PRN (12:03)
--- NOTE | 2022-08-12 12:08 | P.HP ---
Certification for Inpatient Patient admitted to: Inpatient With expected LOS: >2 Midnights Patient will require the following post-hospital care: None Practitioner: I am a practitioner with admitting privileges, knowledge of patient current condition, hospital course, and medical plan of care. Services: Services provided to patient in accordance with Admission requirements found in Title 42 Section 412.3 of the Code of Federal Regulations Patient History Date of Service: 08/12/22 Reason for admission: ESBL UTI History of Present Illness: Patient is an 82-year-old female with a past medical history significant for hemorrhagic CVA, dementia, Parkinson's disease, chronic A-fib status post Watchman device, hyperlipidemia, hypothyroidism, recurrent UTI, hypertension who was seen in the hospital 3 days ago for complaints of headache, dizziness and slurred speech. Patient was admitted to the hospital and had work-up for presenting symptoms. During that admission, patient was noted to have a UTI. Urine cultures was noted to be positive for gram-negative rods. Patient was advised to wait in the hospital for sensitivities resolution but the patient insisted on leaving the hospital for Mother's Day celebration. Patient was prescribed cephalexin and patient was discharged home. Patient was notified that her urine culture came back positive for ESBL by attending MD and patient was advised to come to the hospital for IV antibiotics. Patient is currently alert and oriented x2 and mildly confused. Per family report patient is at her baseline mentally. Patient reported associated signs and symptoms of urinary frequency. Patient denies any other signs and symptoms. Symptoms are aggravated or relieved by nothing. Family decided to bring patient to the hospital as directed by attending MD. Allergies Penicillins Allergy (Severe, Verified 08/10/22 14:12) Anaphylaxis Home Medications: Atorvastatin Calcium 40 mg PO BEDTIME 07/11/20 Carbidopa/Levodopa [Carbidopa-Levodopa 25-100 Tab] 1 tab PO BID 11/30/21 Levothyroxine [Synthroid*] 100 mcg PO [id number] 08/09/22 Lidocaine 5% [Lidocaine HCl] 1 appl TOP DAILY 08/09/22 Aspirin Chewable [Aspirin Chewable*] 81 mg PO DAILY tab.chew 08/11/22 Cephalexin [Keflex*] 500 mg PO BID 5 Days #10 cap 08/11/22 Folic Acid 1 mg PO DAILY #30 08/11/22 - Past Medical/Surgical History Diabetic: No -: History of CVA -: Atrial fibrillation with history of watchman procedure -: Hypertension -: Dementia -: Parkinson disease -: Hypothyroidism -: Watchman procedure Psychosocial/ Personal History: Patient lives at home - Family History Brother -: Heart disease, Cancer - Social History Smoking Status: Never smoker Alcohol use: No CD- Drugs: No Caffeine use: No Place of Residence: Home Review of Systems General: Unremarkable Eyes: Unremarkable ENT: Unremarkable Respiratory: Unremarkable Cardiovascular: Unremarkable Gastrointestinal: Unremarkable Genitourinary: Frequency Musculoskeletal: Unremarkable Integumentary: Unremarkable Neurological: Unremarkable Lymphatics: Unremarkable Physical Examination - Physical Exam General: Alert, In no apparent distress, Oriented x2, Confused HEENT: Atraumatic, PERRLA, Mucous membr. moist/pink, EOMI, Sclerae nonicteric Neck: Supple, 2+ carotid pulse no bruit, No LAD, Without JVD or thyroid abnormality Respiratory: Clear to auscultation bilaterally, Normal air movement Cardiovascular: No edema, Normal S1 S2, Irregular heart rate/rhythm Capillary refill: <2 Seconds Gastrointestinal: Normal bowel sounds, Soft and benign, No tenderness Musculoskeletal: No clubbing, No swelling, No tenderness Integumentary: No rashes, No breakdown, No significant lesion Neurological: Normal speech, Normal strength at 5/5 x4 extr, Normal tone, Normal affect Lymphatics: No axilla or inguinal lymphadenopathy Assessment and Plan - Plan --UTI POA. Patient has a history of recurrent UTI. ESBL noted on UA. Culture sensitive to meropenem. Patient started on meropenem IV. Infectious disease consulted. Blood cultures pending. We will await further recommendation from infectious disease MD. -- Dementia. Continue home medications when available.. --Parkinson's disease. Continue home medication. --Hypothyroidism. Continue Synthroid.. --Chronic A-fib. Status post Watchman device. Telemetry to monitor for any malignant arrhythmia. --Hyperlipidemia. Continue statin. --History of CVA. Continue aspirin and statin. --Hypertension. Stable. Continue home medication. --CKD 3A. Stable. We will continue to monitor renal functions. --DVT prophylaxis with Lovenox subQ. Discharge Plan: Home Plan to discharge in: Greater than 2 days - Advance Directives Does patient have a Living Will: No Does patient have a Durable POA for Healthcare: No - Code Status/Comfort Care Code Status Assessed: Yes Physician Review: Patient Assessed, Agree with Above Assessment and Plan Critical Care: No
[2022-08-12 12:37] LABS: Absolute Lymphocytes (CBC) 2.6 K/uL (0.7-4.9); Hematocrit 40.4 % (36.0-45.0); MCV 95.9 fL (80-100); MPV 8.1 fL (7.6-11.3); RBC Red Blood Cell Count 4.21 M/uL (3.86-4.86)
[2022-08-12] MEDS ORDERED: Meropenem 1,000 MG in NA CHLORIDE 0.9% 100 ML IV SCH (13:00)
[2022-08-12 13:07] LABS: Albumin 3.9 g/dL (3.4-5.0); Bilirubin Total 0.4 mg/dL (0.2-1.0); Potassium 3.9 mEq/L (3.5-5.1); Protein, Total 8.2 g/dL (6.4-8.2)
--- NOTE | 2022-08-12 13:09 | P.CNS ---
Date of Consult: 08/12/22 Reason for Consult: UTI ESBL History of Present Illness: Patient is an 82 yo female with a PMH of chronic a.fib, CVA, dementia, hypertension and hyperlipidemia. She was recently discharged from the hospital 3 days ago on PO cephalexin for gram-negative UTI. However, she was advised to return to the hospital for IV antibiotics due to urine cultures growing E.coli ESBL ID was consulted. Patient is A&Ox3 at this time. Daughter at bedside. Allergies Penicillins Allergy (Severe, Verified 08/10/22 14:12) Anaphylaxis Home medications list reviewed: Yes Home Medications: Atorvastatin Calcium 40 mg PO BEDTIME 07/11/20 Carbidopa/Levodopa [Carbidopa-Levodopa 25-100 Tab] 1 tab PO BID 11/30/21 Levothyroxine [Synthroid*] 100 mcg PO [id number] 08/09/22 Lidocaine 5% [Lidocaine HCl] 1 appl TOP DAILY 08/09/22 Aspirin Chewable [Aspirin Chewable*] 81 mg PO DAILY tab.chew 08/11/22 Cephalexin [Keflex*] 500 mg PO BID 5 Days #10 cap 08/11/22 Folic Acid 1 mg PO DAILY #30 08/11/22 - Past Medical/Surgical History Diabetic: No -: History of CVA -: Atrial fibrillation with history of watchman procedure -: Hypertension -: Dementia -: Parkinson disease -: Hypothyroidism -: Watchman procedure Psychosocial/ Personal History: Patient lives at home - Family History Brother Medical History: Heart disease, Cancer - Social History Alcohol use: No CD- Drugs: No Caffeine use: No Review of Systems 10-point ROS is otherwise unremarkable Genitourinary: Frequency Physical Examination General: Alert, In no apparent distress, Oriented x3 HEENT: Atraumatic, Normocephalic Neck: Supple, JVD not distended Respiratory: Normal air movement Cardiovascular: No edema, Normal pulses Gastrointestinal: Normal bowel sounds, Soft and benign, Non-distended Musculoskeletal: No clubbing, No swelling Integumentary: No rashes, No breakdown Neurological: Normal speech, Normal tone, Normal affect Laboratory Data (last 24 hrs) 08/12/22 12:10: WBC 8.00, Hgb 13.7, Hct 40.4, Plt Count 219 Imagings Data: - Reviewed Conclusions/Impression: Problem List UTI, ESBL Hypertension Dementia Hx CVA Atrial fibrillation, chronic Urinary Tract Infection - Urine culture 08/10: E.coli ESBL - Pt was sent home on Cephalexin PO x3 days and was advised to return to the hospital for IV antibiotic for ESBL UTI. - On Merrem (started 08/12) No leukocytosis Afebrile Recommendations - Continue Merrem for now Continue current plan of care. ID will follow up with patient tomorrow morning. Case discussed with Alejandra Braga
[2022-08-12] MEDS: ASPIRIN 81 MG CHEWABLE TABLET PO SCH (13:48)
[2022-08-12] MEDS: ENOXAPARIN 40 MG/0.4 ML SQ SCH (13:48)
[2022-08-12 13:56] LABS: Magnesium 2.1 mg/dL (1.6-2.4); Phosphorus 2.3 mg/dL (2.5-4.9)
[2022-08-12 14:46] VITALS: BMI 30.9
[2022-08-12] MEDS ORDERED: PNEUMOCOCCAL VACCINE 0.5 ML IMVAC ONE (15:00)
[2022-08-12 15:41] LABS: Specific Gravity 1.006 (1.005-1.030); Urine Bilirubin NEGATIVE (Negative); Urine Blood Negative (Negative); Urine Clarity Clear (Clear); Urine Color Colorless (Yellow); Urine Glucose NEGATIVE (Negative); Urine Protein NEGATIVE (Negative); Urine Urobilinogen Normal (Normal)
[2022-08-12] MEDS: POTASS/SODIUM PHOSPHATE 1 PKT POWD.PACK PO SCH ×3 (16:00→18:08)
[2022-08-12] MEDS ORDERED: SODIUM PHOSPHATE 15 MM in NA CHLORIDE 0.9% 250 ML IV SCH (16:00)
--- NOTE | 2022-08-12 17:56 | RAD REPORT ---
EXAM DESCRIPTION: RAD - Chest Single View - 08/12/2022 5:45 pm CLINICAL HISTORY: Picc line placement COMPARISON: Chest Single View dated 08/09/2022; Chest Single View dated 11/29/2021; Chest Single View d ated 11/08/2021; Chest Single View dated 07/11/2020 FINDINGS: Portable chest was obtained following placement of a left upper extremity PICC line. The c atheter tip projects over the right brachiocephalic vein.
[2022-08-12] MEDS: Mupirocin NASAL 2 APPL/1 GM TUBE NAS SCH (21:00)
[2022-08-12] MEDS: CARBIDOPA/LEVODOPA 25/100 TAB PO SCH (21:08)
[2022-08-12] MEDS: ATORVASTATIN 40 MG TAB PO SCH (21:08)
[2022-08-12] MEDS: MELATONIN 5 MG TABLET PO PRN (23:05)
[2022-08-13] MEDS: Meropenem 1,000 MG in NA CHLORIDE 0.9% 100 ML IV SCH ×3 (01:24→17:32)
[2022-08-13] MEDS: LEVOTHYROXINE SOD 0.1 MG TAB PO SCH (06:16)
[2022-08-13 06:26] LABS: Hematocrit 37.3 % (36.0-45.0); Lymphocytes % 23.3 % (15.3-44.8); MCV 96.2 fL (80-100); MPV 8.1 fL (7.6-11.3); RBC Red Blood Cell Count 3.88 M/uL (3.86-4.86)
[2022-08-13 06:41] LABS: Potassium 3.5 mEq/L (3.5-5.1)
--- NOTE | 2022-08-13 07:47 | EKG ---
Test Date: 2022-08-12 Test Time: 18:23:53 [employer] Supervisor: GUS MEASUREMENT RESULTS: Intervals: Rate: 59 ID: QRSD: [id number] QT: 498 QTc: 493 [place]: P: ID: [id number] T: [id number] INTERPRETIVE STATEMENTS: Atrial flutter with variable AV block Left axis deviation Low voltage QRS Septal infarct, age undetermined ST & T wave abnormality, consider anterolateral ischemia Abnormal ECG Compared to ECG 08/09/2022 11:57:18 Left-axis deviation now present Low QRS voltage now present Atrial fibrillation no longer present Prolonged QT interval no longer present Myocardial infarct finding still present ST (T wave) deviation still present Possible ischemia still present Electronically Signed On 08-13-22 07:45:37 CDT by Spencer Obiren
[2022-08-13] MEDS: [UNRECOGNIZED DRUG - OTHER] TOP SCH (09:00)
[2022-08-13] MEDS: Mupirocin NASAL 2 APPL/1 GM TUBE NAS SCH (09:00)
[2022-08-13] MEDS: LIDOCAINE 5% TOP SCH (09:00)
--- NOTE | 2022-08-13 09:19 | P.PN ---
Date of Service: 08/13/22 Chief Complaint: UTI ESBL Subjective: No new changes. Patient is sitting in bed, A&Ox3, breathing comfortably on room air. Denies any complaints at this time. Daughter at bedside. Physical Examination Temp Pulse Resp BP Pulse Ox 98.1 F 69 16 121/61 95 08/13/22 08:00 08/13/22 08:00 08/13/22 08:00 08/13/22 08:00 08/13/22 08:00 General: Alert, In no apparent distress, Oriented x3 HEENT: Atraumatic, Normocephalic Neck: Supple, JVD not distended Respiratory: Normal air movement Cardiovascular: No edema, Normal pulses Gastrointestinal: Normal bowel sounds, Soft and benign, Non-distended Musculoskeletal: No clubbing, No swelling Integumentary: No rashes, No breakdown Neurological: Normal speech, Normal tone, Normal affect Studies Laboratory Data - Reviewed Imagings Data: - Reviewed Microbiology Data - Urine culture 08/10: E.coli ESBL - Blood culture 08/12: Pending Assessment and Plan Problem List UTI, ESBL Hypertension Dementia Hx CVA Atrial fibrillation, chronic Urinary Tract Infection - Urine culture 08/10: E.coli ESBL - Pt was sent home on Cephalexin PO x3 days and was advised to return to the hospital for IV antibiotic for ESBL UTI. - On Merrem (started 08/12) No leukocytosis Afebrile Recommendations - Merrem x 7 days via Midline or PICC line Continue current plan of care. ID will follow patient as needed Case discussed with Alejandra Braga
[2022-08-13] MEDS: ASPIRIN 81 MG CHEWABLE TABLET PO SCH (09:38)
[2022-08-13] MEDS: FOLIC ACID 1 MG TABLET PO SCH (09:38)
[2022-08-13] MEDS: ENOXAPARIN 40 MG/0.4 ML SQ SCH (09:39)
[2022-08-13] MEDS: CARBIDOPA/LEVODOPA 25/100 TAB PO SCH ×2 (09:43→20:48)
[2022-08-13] MEDS ORDERED: POTASSIUM CL SA 10 MEQ TAB PO ONE (11:58)
--- NOTE | 2022-08-13 12:04 | P.PN ---
Subjective Date of Service: 08/13/22 Chief Complaint: ESBL UTI No acute events overnight. PICC line x 2 was attempted yesterday, without success. Otherwise, she reports that she is doing well and has no complaints. She denies any chest pain, palpitations, or shortness of breath. Review of Systems 10-point ROS is otherwise unremarkable Physical Examination - Vital Signs Temperature: 98.1 F Blood Pressure: 121/61 Pulse: 69 Respirations: 16 Pulse Ox (%): 95 - Studies Laboratory Data (last 24 hrs) 08/13/22 05:44: Sodium 133 L, Potassium 3.5, BUN 16, Creatinine 0.96, Glucose 101 08/13/22 05:44: WBC 8.70, Hgb 12.7, Hct 37.3, Plt Count 194 08/12/22 12:10: Sodium 133 L, Potassium 3.9, BUN 17, Creatinine 0.98, Glucose 95, Total Bilirubin 0.4, AST 24, ALT 12 L, Alkaline Phosphatase 113 08/12/22 12:10: WBC 8.00, Hgb 13.7, Hct 40.4, Plt Count 219 08/12/22 06:10: Phosphorus 2.3 L, Magnesium 2.1 Microbiology Data (last 24 hrs): 08/12/22 15:04 Blood - Blood Anaerobic Blood Culture - Final Assessment And Plan - Plan - Physical Exam General: Alert, In no apparent distress, Oriented x3 HEENT: Atraumatic, Mucous membr. moist/pink, Sclerae nonicteric Neck: JVD not distended Respiratory: Clear to auscultation bilaterally, Normal air movement Cardiovascular: No edema,No murmurs, Irregular heart rate/rhythm Gastrointestinal: Normal bowel sounds, Soft, Non-distended, No tenderness Musculoskeletal: No clubbing Integumentary: No rashes Neurological: Normal speech, Normal affect # ESBL Escherichia Coli Urinary Tract Infection # History of Recurrent Urinary Tract Infections - Urine culture from 08/10 = positive for ESBL E. Coli UTI - Does not meet sepsis criteria - Infectious Diseases consulted and spoke with CLOTHING CUTTER Sgarbi - recommendations appreciated - Continue meropenem x 7 days, day 2 of 7 - Unable to place PICC line - Will order mid-line - CM consulted for assistance with SNF placement for duration of IV antibiotics # History of Hemorrhagic Cerebrovascular Accident s/p Craniotomy (2008) # Hypertension # Hyperlipidemia - Continue home aspirin, folic acid, atorvastatin # Chronic Atrial Fibrillation/Flutter s/p Watchman device - Not a candidate for anticoagulation given history of hemorrhagic stroke - Hold home metoprolol given bradycardia # Dementia # Parkinson's Disease - Continue home donepezil, carbidopa-levodopa # Hypothyroidism - Continue home levothyroxine # Depression - Hold home citalopram, mirtazapine given prolonged QTc interval Owen Luna M.D.
[2022-08-13] MEDS: ATORVASTATIN 40 MG TAB PO SCH (20:48)
[2022-08-13] MEDS: MELATONIN 5 MG TABLET PO PRN (20:48)
[2022-08-14] MEDS: Meropenem 1,000 MG in NA CHLORIDE 0.9% 100 ML IV SCH ×3 (00:11→17:03)
[2022-08-14] MEDS: LEVOTHYROXINE SOD 0.1 MG TAB PO SCH (04:25)
[2022-08-14 06:39] LABS: Phosphorus 2.8 mg/dL (2.5-4.9); Potassium 3.7 mEq/L (3.5-5.1)
[2022-08-14] MEDS: ENOXAPARIN 40 MG/0.4 ML SQ SCH (08:07)
[2022-08-14] MEDS: ASPIRIN 81 MG CHEWABLE TABLET PO SCH (08:08)
[2022-08-14] MEDS: FOLIC ACID 1 MG TABLET PO SCH (08:08)
[2022-08-14] MEDS: LIDOCAINE 5% TOP SCH (09:00)
[2022-08-14] MEDS: [UNRECOGNIZED DRUG - OTHER] TOP SCH (09:00)
--- NOTE | 2022-08-14 09:14 | P.PN ---
Date of Service: 08/14/22 Chief Complaint: UTI ESBL Subjective: No new changes. Patient in bed, A&Ox3. and daughter at bedside. No acute events reported overnight. Continue current plan of care. Physical Examination Temp Pulse Resp BP Pulse Ox 97.4 F 118 H 16 127/79 95 08/14/22 08:00 08/14/22 08:00 08/14/22 08:00 08/14/22 08:00 08/14/22 08:00 General: Alert, In no apparent distress, Oriented x3 HEENT: Atraumatic, Normocephalic Neck: Supple, JVD not distended Respiratory: Normal air movement Cardiovascular: No edema, Normal pulses Gastrointestinal: Normal bowel sounds, Soft and benign, Non-distended Musculoskeletal: No clubbing, No swelling Integumentary: No rashes, No breakdown Neurological: Normal speech, Normal tone, Normal affect Studies Laboratory Data - Reviewed Imagings Data: - Reviewed Microbiology Data - Urine culture 08/10: E.coli ESBL - Blood culture 08/12: No growth to date Assessment and Plan Problem List UTI, ESBL Hypertension Dementia Hx CVA Atrial fibrillation, chronic Urinary Tract Infection - Pt was sent home on Cephalexin PO x3 days and was advised to return to the hospital for IV antibiotic for ESBL UTI. - Urine culture 08/10: E.coli ESBL - On Merrem (started 08/12) No leukocytosis Afebrile Recommendations - Continue Merrem x 7 days (08/12 to 08/18). Currently day 3 of 7 Continue current plan of care. ID will follow patient as needed Case discussed with Alejandra Braga
[2022-08-14] MEDS: CARBIDOPA/LEVODOPA 25/100 TAB PO SCH ×2 (10:14→20:29)
[2022-08-14] MEDS ORDERED: METOPROLOL TARTRATE 5 MG/5 ML INJ IV STA (14:53)
[2022-08-14] MEDS ORDERED: SOTALOL HCL 80 MG TAB PO ONE (15:19)
--- NOTE | 2022-08-14 16:49 | CON ---
Date of Consultation: 08/14/2022 Reason For Consultation: Atrial fibrillation with rapid ventricular response. History Of Present Illness: An 82-year-old female with history of CVA, dementia, Parkinson disease, atrial fibrillation, status post Watchman recently, dyslipidemia, hypothyroidism, recurrent UTI. She was admitted to the hospital with urinary tract infection. In the hospital, she had atrial fibrilla tion with rapid ventricular response. So, I was consulted. I saw her by bedside. She has no sympto ms. Past Medical History: As outlined above in HPI. Medications: Refer to reconciliation sheet for detailed list. Allergies: PENICILLIN. Family History: No premature coronary artery disease or cancer. Social History: She does not smoke or drink. Does not use any drugs. Review of Systems: All systems reviewed and they were negative except what mentioned in HPI. Physical Examination: Vital Signs: Reviewed. Head and Neck: Pupils are equal, reactive to light. Intact eye movements. No JVD. No cervical lym phadenopathy. Neck is supple. Thyroid is not enlarged. Lungs: Clear to auscultation bilaterally. No rhonchi, wheezing, or crackles. No accessory muscle u se. Heart: Irregularly irregular, tachycardic. Abdomen: Soft, nontender. Bowel sounds positive. No organomegaly. No masses or hernia. No rigidi ty or rebound. Extremities: No edema, clubbing, or cyanosis. Intact pulses. Skin: No rash. Neurologic: Alert, awake, oriented x3. No acute focal deficits appreciated. Investigations: BUN 15, creatinine 0.96, hemoglobin 12.7. Assessment And Recommendations: 1.Atrial fibrillation with rapid ventricular response. She is status post appendage closure. I sta rted her on sotalol 80 mg twice a day and used IV metoprolol 5 mg every 1 hour as needed for rate con trol, and we will adjust medications as needed. After the third dose to obtain an EKG to evaluate th e QTc interval. 2.Dyslipidemia, on statin. 3.Urinary tract infection, on proper antibiotics. It is a resistant bacteria. The patient is recei ving meropenem. SR/MODL Voice ID: [id number] Report ID: [id number]
--- NOTE | 2022-08-14 18:03 | P.PN ---
Subjective Date of Service: 08/14/22 Chief Complaint: ESBL UTI No acute events overnight. Per family, mid-line was attempted 4 times, without success. For now, will plan to complete meropenem course while hospitalized. Later today, she developed atrial fibrillation with rapid ventricular response, for which she was given metoprolol. Cardiology was consulted and Dr. Camp started her on sotalol. Her heart rate is much improved at this time. She denies any chest pain, palpitations, or shortness of breath. Review of Systems 10-point ROS is otherwise unremarkable General: Weakness (generalized) Physical Examination - Vital Signs Temperature: 97.8 F Blood Pressure: 131/87 Pulse: 125 Respirations: 16 Pulse Ox (%): 95 - Studies Laboratory Data (last 24 hrs) 08/14/22 05:50: Sodium 132 L, Potassium 3.7, BUN 15, Creatinine 0.96, Glucose 114 H, Phosphorus 2.8, Magnesium 2.0 Microbiology Data (last 24 hrs): 08/12/22 15:04 Blood - Blood Anaerobic Blood Culture - Final Assessment And Plan - Plan - Physical Exam General: Alert, In no apparent distress, Oriented x3 HEENT: Atraumatic, Mucous membr. moist/pink, Sclerae nonicteric Neck: JVD not distended Respiratory: Clear to auscultation bilaterally, Normal air movement Cardiovascular: No edema,No murmurs, Irregular heart rate/rhythm Gastrointestinal: Normal bowel sounds, Soft, Non-distended, No tenderness Musculoskeletal: No clubbing Integumentary: No rashes Neurological: Normal speech, Normal affect # ESBL Escherichia Coli Urinary Tract Infection # History of Recurrent Urinary Tract Infections - Urine culture from 08/10 = positive for ESBL E. Coli UTI - Does not meet sepsis criteria - Infectious Diseases consulted and spoke with Dr. Gill - recommendations appreciated - Continue meropenem x 7 days, day 3 of 7 - Unable to place PICC or midline # Paroxysmal Atrial Fibrillation with Rapid Ventricular Response s/p Watchman device - Not a candidate for anticoagulation given history of hemorrhagic stroke - Cardiology consulted and she was evaluated by Dr. Camp - recommendations appreciated - Started her on sotalol # History of Hemorrhagic Cerebrovascular Accident s/p Craniotomy (2008) # Hypertension # Hyperlipidemia - Continue home aspirin, folic acid, atorvastatin # Dementia # Parkinson's Disease - Continue home donepezil, carbidopa-levodopa # Hypothyroidism - Continue home levothyroxine # Depression - Hold home citalopram, mirtazapine given prolonged QTc interval Owen Luna M.D.
[2022-08-14] MEDS: SOTALOL HCL 80 MG TAB PO SCH (18:31)
[2022-08-14] MEDS: MELATONIN 5 MG TABLET PO PRN (20:29)
[2022-08-14] MEDS: ATORVASTATIN 40 MG TAB PO SCH (20:29)
[2022-08-15] MEDS: Meropenem 1,000 MG in NA CHLORIDE 0.9% 100 ML IV SCH ×3 (00:03→16:39)
[2022-08-15 04:54] LABS: Potassium 3.7 mEq/L (3.5-5.1)
[2022-08-15] MEDS: LEVOTHYROXINE SOD 0.1 MG TAB PO SCH (05:57)
[2022-08-15] MEDS: SOTALOL HCL 80 MG TAB PO SCH ×2 (05:57→17:55)
[2022-08-15] MEDS: ASPIRIN 81 MG CHEWABLE TABLET PO SCH (08:21)
[2022-08-15] MEDS: FOLIC ACID 1 MG TABLET PO SCH (08:21)
[2022-08-15] MEDS: CARBIDOPA/LEVODOPA 25/100 TAB PO SCH ×2 (08:21→20:33)
[2022-08-15] MEDS: LIDOCAINE 5% TOP SCH (08:22)
[2022-08-15] MEDS: ENOXAPARIN 40 MG/0.4 ML SQ SCH (08:22)
[2022-08-15] MEDS: [UNRECOGNIZED DRUG - OTHER] TOP SCH (08:22)
[2022-08-15] MEDS ORDERED: POTASSIUM CL SA 10 MEQ TAB PO ONE (09:00)
--- NOTE | 2022-08-15 09:16 | P.PN ---
Date of Service: 08/15/22 Chief Complaint: UTI ESBL Subjective: No new changes. Patient in bed, A&Ox3 and in good spirits. No acute events reported overnight. Denies any complaints. No chest pain, back pain or abdominal pain. No dysuria, frequency or retention. No shortness of breath. Physical Examination Temp Pulse Resp BP Pulse Ox 97.6 F 69 12 125/84 97 08/15/22 08:00 08/15/22 08:00 08/15/22 08:00 08/15/22 08:00 08/15/22 08:00 General: Alert, In no apparent distress, Oriented x3 HEENT: Atraumatic, Normocephalic Neck: Supple, JVD not distended Respiratory: Normal air movement Cardiovascular: No edema, Normal pulses Gastrointestinal: Normal bowel sounds, Soft and benign, Non-distended Musculoskeletal: No clubbing, No swelling Integumentary: No rashes, No breakdown Neurological: Normal speech, Normal tone, Normal affect Urinary: PureWick Studies Laboratory Data - Reviewed Imagings Data: - Reviewed Microbiology Data - Urine culture 08/10: E.coli ESBL - Blood culture 08/12: No growth to date Assessment and Plan Problem List UTI, ESBL Hypertension Dementia Hx CVA Atrial fibrillation, chronic Urinary Tract Infection - Pt was sent home on Cephalexin PO x3 days and was advised to return to the hospital for IV antibiotic for ESBL UTI. - Urine culture 08/10: E.coli ESBL - On Merrem (started 08/12) No leukocytosis Afebrile Recommendations - Continue Merrem x 7 days (08/12 to 08/18). - Currently day 4 of 7 Supportive care and nutritional support as needed. ID will follow up and monitor patient for signs of worsening infection. Case discussed with Alejandra Braga
--- NOTE | 2022-08-15 14:15 | PN ---
Date of Progress Note: 08/15/2022 The patient admitted with atrial fibrillation. Has a history of Watchman, dyslipidemia, CVA, vishal onism, and dementia. She was placed on sotalol 80 b.i.d. She is still in atrial fibrillation, but r ate is only 79. She is also on beta-blockers. I will discuss the case further with Dr. Luna and Dr Chapis Camp. From my standpoint after her first dose of sotalol, her QT interval is adequate to send he r home on sotalol and see her in the office in the near future and decide on cardioversion then or co nsider a STORM cardioversion while she is in the hospital. I will discuss the case further with Dr. Manuel khan and Dr. Camp. Continue present regimen for now. JESSICA/REYNALDO Voice ID: [id number] Report ID: [id number]
--- NOTE | 2022-08-15 16:22 | P.PN ---
Subjective Date of Service: 08/15/22 Chief Complaint: ESBL UTI No acute events overnight. She was started on sotalol, with improvement in her atrial fibrillation. She is on day 4 of 7 of her meropenem. Given our inability to obtain access via PICC or midline, will need to complete antibiotic course as an inpatient. Offered central line, but she declined. She denies any chest pain, palpitations, or shortness of breath. Review of Systems 10-point ROS is otherwise unremarkable General: Weakness (generalized) Physical Examination - Vital Signs Temperature: 96.8 F Blood Pressure: 116/64 Pulse: 68 Respirations: 14 Pulse Ox (%): 95 - Studies Laboratory Data (last 24 hrs) 08/15/22 03:36: Sodium 131 L, Potassium 3.7, BUN 19 H, Creatinine 1.04 H, Glucose 98 Assessment And Plan - Plan - Physical Exam General: Alert, In no apparent distress, Oriented x3 HEENT: Atraumatic, Mucous membr. moist/pink, Sclerae nonicteric Neck: JVD not distended Respiratory: Clear to auscultation bilaterally, Normal air movement Cardiovascular: No edema,No murmurs, Irregular heart rate/rhythm Gastrointestinal: Normal bowel sounds, Soft, Non-distended, No tenderness Musculoskeletal: No clubbing Integumentary: No rashes Neurological: Normal speech, Normal affect # ESBL Escherichia Coli Urinary Tract Infection # History of Recurrent Urinary Tract Infections - Urine culture from 08/10 = positive for ESBL E. Coli UTI - Does not meet sepsis criteria - Infectious Diseases consulted and spoke with Dr. Gill - recommendations appreciated - Continue meropenem x 7 days, day 4 of 7 - Unable to place PICC or midline # Paroxysmal Atrial Fibrillation with Rapid Ventricular Response s/p Watchman d evice - Not a candidate for anticoagulation given history of hemorrhagic stroke - Cardiology consulted and she was evaluated by Dr. Camp - recommendations appreciated - Started her on sotalol # History of Hemorrhagic Cerebrovascular Accident s/p Craniotomy (2008) # Hypertension # Hyperlipidemia - Continue home aspirin, folic acid, atorvastatin # Dementia # Parkinson's Disease - Continue home donepezil, carbidopa-levodopa # Hypothyroidism - Continue home levothyroxine # Depression - Hold home citalopram, mirtazapine given prolonged QTc interval Owen Luna M.D.
[2022-08-15] MEDS: ATORVASTATIN 40 MG TAB PO SCH (20:32)
[2022-08-15] MEDS: MELATONIN 5 MG TABLET PO PRN (23:09)
[2022-08-16] MEDS: Meropenem 1,000 MG in NA CHLORIDE 0.9% 100 ML IV SCH ×3 (00:20→17:24)
[2022-08-16] MEDS: SOTALOL HCL 80 MG TAB PO SCH ×2 (05:47→17:24)
[2022-08-16] MEDS: LEVOTHYROXINE SOD 0.1 MG TAB PO SCH (05:48)
[2022-08-16] MEDS: [UNRECOGNIZED DRUG - OTHER] TOP SCH (09:00)
[2022-08-16] MEDS: LIDOCAINE 5% TOP SCH (09:00)
[2022-08-16] MEDS: CARBIDOPA/LEVODOPA 25/100 TAB PO SCH ×2 (09:21→20:34)
[2022-08-16] MEDS: ASPIRIN 81 MG CHEWABLE TABLET PO SCH (09:21)
[2022-08-16] MEDS: FOLIC ACID 1 MG TABLET PO SCH (09:21)
[2022-08-16] MEDS: ENOXAPARIN 40 MG/0.4 ML SQ SCH (09:21)
--- NOTE | 2022-08-16 09:46 | P.PN ---
Date of Service: 08/16/22 Chief Complaint: UTI ESBL Subjective: No new changes. Patient in bed, A&Ox3 breathing comfortably on room air. Denies any complaints. Family at bedside. No acute events reported overnight. Physical Examination Temp Pulse Resp BP Pulse Ox 97.0 F 82 16 126/77 95 08/16/22 08:00 08/16/22 08:00 08/16/22 08:00 08/16/22 08:00 08/16/22 08:00 General: Alert, In no apparent distress, Oriented x3 HEENT: Atraumatic, Normocephalic Neck: Supple, JVD not distended Respiratory: Normal air movement Cardiovascular: No edema, Normal pulses Gastrointestinal: Normal bowel sounds, Soft and benign, Non-distended Musculoskeletal: No clubbing, No swelling Integumentary: No rashes, No breakdown Neurological: Normal speech, Normal tone, Normal affect Urinary: PureWick with dark yellow urine noted Studies Laboratory Data - Reviewed Imagings Data: - Reviewed Microbiology Data - Urine culture 08/10: E.coli ESBL - Blood culture 08/12: No growth to date Assessment and Plan Problem List Hypertension Dementia Hx CVA Dislipidemia Atrial fibrillation s/p Watchman Urinary Tract Infection, ESBL Urinary Tract Infection - Pt was sent home on Cephalexin PO x3 days and was advised to return to the hospital for IV antibiotic for ESBL UTI. - Urine culture 08/10: E.coli ESBL - On Merrem (started 08/12) No leukocytosis Afebrile Recommendations - Continue Merrem x 7 days (08/12 to 08/18). - Currently day 5 of 7 Supportive care and nutritional support as needed. ID will follow up and monitor patient for signs of worsening infection. Case discussed with Alejandra Braga
[2022-08-16] MEDS: ATORVASTATIN 40 MG TAB PO SCH (20:34)
[2022-08-16] MEDS: MELATONIN 5 MG TABLET PO PRN (20:34)
[2022-08-17] MEDS: Meropenem 1,000 MG in NA CHLORIDE 0.9% 100 ML IV SCH ×3 (00:42→16:49)
[2022-08-17 05:00] LABS: Phosphorus 2.8 mg/dL (2.5-4.9); Potassium 3.8 mEq/L (3.5-5.1)
[2022-08-17] MEDS: LEVOTHYROXINE SOD 0.1 MG TAB PO SCH (06:36)
[2022-08-17] MEDS: SOTALOL HCL 80 MG TAB PO SCH ×2 (06:36→16:49)
[2022-08-17] MEDS: ASPIRIN 81 MG CHEWABLE TABLET PO SCH (08:18)
[2022-08-17] MEDS: FOLIC ACID 1 MG TABLET PO SCH (08:18)
[2022-08-17] MEDS: ENOXAPARIN 40 MG/0.4 ML SQ SCH (08:18)
[2022-08-17] MEDS: CARBIDOPA/LEVODOPA 25/100 TAB PO SCH ×2 (08:18→20:41)
[2022-08-17] MEDS: LIDOCAINE 5% TOP SCH (08:19)
[2022-08-17] MEDS: [UNRECOGNIZED DRUG - OTHER] TOP SCH (08:19)
[2022-08-17] MEDS ORDERED: POTASSIUM CL SA 10 MEQ TAB PO ONE (09:00)
[2022-08-17 10:06] VITALS: O2SAT 96
--- NOTE | 2022-08-17 15:10 | PN ---
Date of Progress Note: 08/17/2022 Subjective: Seen by bedside. Doing very well. She converted to sinus rhythm. Review of Systems: No chest pain, shortness of breath, orthopnea, cough. No nausea, vomiting, diarrhea. All other syst ems reviewed and they are negative. Physical Examination: Vital Signs: Reviewed. Head and Neck: Pupils are equal, reactive to light. Intact eye movements. No JVD. No cervical lym phadenopathy. Neck is supple. Thyroid is not enlarged. Lungs: Clear to auscultation bilaterally. No rhonchi, rales, or crackles. No accessory muscle use. Heart: Regular rate and rhythm. No extra sounds. Abdomen: Soft, nontender. Bowel sounds positive. No organomegaly. No masses or hernia. No rigidi ty or rebound. Extremities: No clubbing, cyanosis. Intact pulses. Skin: No rash noted. Neurologic: Alert, awake. No acute focal deficits appreciated. Investigations: BUN 20, creatinine 0.82, and hemoglobin 12.7. Assessment And Recommendation: 1.Atrial fibrillation converted to sinus rhythm. Continue sotalol. Status post appendage closures. Continue aspirin 81 mg daily. 2.Urinary tract infection on proper antibiotics. 3.Dyslipidemia. Continue statin. SR/MODL Voice ID: [id number] Report ID: [id number]
[2022-08-17] MEDS: ATORVASTATIN 40 MG TAB PO SCH (20:41)
[2022-08-17] MEDS: MELATONIN 5 MG TABLET PO PRN (22:52)
[2022-08-18] MEDS: Meropenem 1,000 MG in NA CHLORIDE 0.9% 100 ML IV SCH ×2 (01:15→08:15)
[2022-08-18 04:42] LABS: Magnesium 2.3 mg/dL (1.6-2.4); Potassium 4.1 mEq/L (3.5-5.1)
[2022-08-18] MEDS: LEVOTHYROXINE SOD 0.1 MG TAB PO SCH (06:31)
[2022-08-18] MEDS: SOTALOL HCL 80 MG TAB PO SCH (06:31)
[2022-08-18 07:52] VITALS: BP 134/63; TEMP 96.8
[2022-08-18] MEDS: CARBIDOPA/LEVODOPA 25/100 TAB PO SCH (08:15)
[2022-08-18] MEDS: ENOXAPARIN 40 MG/0.4 ML SQ SCH (08:15)
[2022-08-18] MEDS: ASPIRIN 81 MG CHEWABLE TABLET PO SCH (08:15)
[2022-08-18] MEDS: LIDOCAINE 5% TOP SCH (08:16)
[2022-08-18] MEDS: [UNRECOGNIZED DRUG - OTHER] TOP SCH (08:16)
[2022-08-18] MEDS: FOLIC ACID 1 MG TABLET PO SCH (08:17)
[2022-08-18] MEDS ORDERED: NA CHLORIDE 0.9% 0 ML ONE (08:29)
--- NOTE | 2022-08-19 15:29 | EKG ---
Test Date: 2022-08-14 Test Time: 14:20:40 Painter Helper: MARGO MEASUREMENT RESULTS: Intervals: Rate: 128 NE: 186 QRSD: 32 QT: 306 QTc: 446 [place]: P: -36 NE: 186 QRS: 0 T: -19 INTERPRETIVE STATEMENTS: Undetermined rhythm Indeterminate axis Pulmonary disease pattern Marked ST abnormality, possible anteroseptal subendocardial injury Abnormal ECG Compared to ECG 08/14/2022 14:19:54 No significant changes Electronically Signed On 08-19-22 15:22:38 CDT by Spencer Obrien
--- NOTE | 2022-08-19 15:29 | EKG ---
Test Date: 2022-08-14 Test Time: 14:19:54 Manufacturing Business Analyst: MARGO MEASUREMENT RESULTS: Intervals: Rate: 132 AK: 150 QRSD: 34 QT: 288 QTc: 426 [place]: P: -53 AK: 150 QRS: 0 T: -14 INTERPRETIVE STATEMENTS: Undetermined rhythm Indeterminate axis Pulmonary disease pattern Marked ST abnormality, possible anteroseptal subendocardial injury Abnormal ECG Compared to ECG 08/12/2022 18:23:53 Indeterminate axis now present Atrial flutter no longer present Left-axis deviation no longer present Myocardial infarct finding no longer present Possible ischemia no longer present ST (T wave) deviation still present Electronically Signed On 08-19-22 15:22:39 CDT by Spencer Obrien
== END 2022-08-18 10:15 | disposition home or self-care (01) | DRG 690 ==
LOC: 4TH 11:26
PROVIDERS: ADMIT Internal Medicine; ATTEND Hospitalist
PROC: 02HV33Z Insertion of Infusion Device into Superior Vena Cava, Percutaneous Approach (ICD-10-PCS; principal; 2022-08-12)
DX: N39.0 Urinary tract infection, site not specified (principal); Z16.12 Extended spectrum beta lactamase (ESBL) resistance; Z16.20 Resistance to unspecified antibiotic; F02.83 Dementia in other diseases classified elsewhere, unspecified severity, with mood disturbance; E78.5 Hyperlipidemia, unspecified; I10 Essential (primary) hypertension; I48.0 Paroxysmal atrial fibrillation; E03.9 Hypothyroidism, unspecified; B96.20 Unspecified Escherichia coli [E. coli] as the cause of diseases classified elsewhere; Z88.0 Allergy status to penicillin; Z79.82 Long term (current) use of aspirin; Z86.73 Personal history of transient ischemic attack (TIA), and cerebral infarction without residual deficits; Z79.890 Hormone replacement therapy; Z79.899 Other long term (current) drug therapy; Z95.818 Presence of other cardiac implants and grafts
CPT/HCPCS: 36415; 71045; 80048; 80053; 81003; 83735; 83880; 84100; 85025; 87040; 93005; 97116; 97161; 97530; J1650; J2185; J7050

== ENCOUNTER 2024-03-07 09:52 | Emergency (ER) | payer OTHER ==
[2024-03-07] MEDS ORDERED: NA CHLORIDE 0.9% 500 ML ONE (10:52)
[2024-03-07] MEDS ORDERED: MORPHINE 2 MG/ML SYR ONE (10:52)
[2024-03-07 11:02] LABS: Absolute Basophils 0.1 K/uL (0-0.5); Absolute Eosinophils 0.3 K/uL (0-0.5); Absolute Lymphocytes (CBC) 1.5 K/uL (0.7-4.9); Absolute Monocytes 0.6 K/uL (0.1-1.3); Absolute Neutrophil 3.8 K/uL (1.8-8.0); Basophils % 1.3 % (0-1.3); Eosinophils % 4.4 % (0-4.4); Hematocrit 35.5 % (36.0-45.0); Hemoglobin 11.4 g/dL (12.0-15.0); Lymphocytes % 24.8 % (15.3-44.8); MCH 30.6 pg (27.0-35.0); MCHC 32.1 g/dL (32.0-36.0); MCV 95.6 fL (80-100); MPV 8.2 fL (7.6-11.3); Neutrophils % 60.5 % (41.7-73.7); Platelets 194 thou/uL (152-406); RBC Red Blood Cell Count 3.72 M/uL (3.86-4.86); Red Cell Distribution Width 13.9 % (12.1-15.2)
[2024-03-07] MEDS ORDERED: FENTANYL CITR 100 MCG/2 ML ONE (11:12)
[2024-03-07 11:15] LABS: Albumin 3.3 g/dL (3.4-5.0); Albumin/Globulin Ratio 0.8 (1.1-1.8); Anion Gap 8.9 mEq/L (5.0-15.0); Bilirubin Total 0.7 mg/dL (0.2-1.0); Globulin 4.2 g/dL (2.3-3.5); Potassium 3.9 mEq/L (3.5-5.1); Protein, Total 7.5 g/dL (6.4-8.2)
[2024-03-07 11:58] LABS: Specific Gravity 1.013 (1.005-1.030); Sqamous Epithelial <5 /HPF (None Seen); Transitional Epithelial <5 /HPF (None Seen); Urine Bacteria 20-50 /HPF (<20); Urine Bilirubin NEGATIVE (Negative); Urine Blood Trace (Negative); Urine Clarity Extremely Turbid (Clear); Urine Color Light-Yellow (Yellow); Urine Culture Reflex Order REFLEXED; Urine Glucose NEGATIVE (Negative); Urine Ketones NEGATIVE (Negative); Urine Microscopic Reflex YN ORDER UMIC; Urine Nitrite NEGATIVE (Negative); Urine Protein 1+ (Negative); Urine Urobilinogen Normal (Normal); Urine WBC >50 /HPF (<5); Urine pH 6.5 (5.0-7.0)
[2024-03-07] MEDS ORDERED: CEFTRIAXONE 1000 MG/VIAL ONE (14:25)
--- NOTE | 2024-03-07 15:20 | RAD REPORT ---
EXAMINATION: CT ABDOMEN AND PELVIS WITH CONTRAST CLINICAL INDICATION: Female, 83 years old.back pain;Abd pain TECHNIQUE: CT abdomen and pelvis was performed, after the administration of IV contrast, as per [facility] protocol. Axial, sagittal and coronal reconstructions were obtained. One or more of the following dose reduction techniques were used: Automated exposure control, adjustment of the mA and/o r kV according to patient size, and/or iterative reconstruction. Unless otherwise specified, incidental findings do not require dedicated imaging follow-up. [id number]. COMPARISON: 11/29/2021 FINDINGS: LOWER CHEST: Small bilateral effusions, right greater than left. There is underlying atelectasis. Car diomegaly. Gas within the right atrium is presumably from vascular access. LIVER: Nodular liver contour. GALLBLADDER/BILE DUCT: Cholecystectomy? PANCREAS: No significant abnormality. SPLEEN: Normal size. No focal lesion. ADRENALS: Adrenal thickening without discrete mass. KIDNEYS AND URETERS: Normal size and contour. No hydronephrosis. GASTROINTESTINAL TRACT: Stomach is non-dilated. Small bowel has normal course and caliber. No colonic wall thickening or pericolonic inflammatory changes. PERITONEUM: Trace ascites. LYMPH NODES: No lymphadenopathy. ABDOMINAL AORTA AND OTHER VESSELS: Normal caliber aorta and IVC. Atherosclerosis. There is at least m oderate narrowing at the celiac trunk. The SMA is patent. URINARY BLADDER: Normal contour. REPRODUCTIVE ORGANS: Pessary. MUSCULOSKELETAL: No acute or suspicious osseous abnormality. Multilevel degenerative changes are pres ent in the spine. Retrolisthesis of L2 on L3 and L3-L4. Both central spinal stenosis and neural foraminal narrowing is present. Central spinal stenosis appears severe at L3-4 and L4-5. ADDITIONAL FINDINGS: None. IMPRESSION: No acute or significant abnormalities seen in the abdomen or pelvis. Incidental findings as noted abo ve.
--- NOTE | 2024-03-07 15:36 | ER ---
Nurse's Notes [facility] Name: Kari Grace Age: 83 yrs Sex: Female : 1940 Arrival Date: 03/07/2024 Time: 09:52 Bed 16 Private MD: Diagnosis: UTI/ Urinary tract infection, site not specified;Sciatica, left side Presentation: 03/07 10:07 Chief complaint: Patient states: left lower back pain radiating down left legs since iw last night, also has pain to left upper abd area under her ribs, denies falling or injury. Coronavirus screen: At this time, the client does not indicate any symptoms associated with coronavirus-19. Ebola Screen: (+) Ebola Screening. Initial Sepsis Screen: Does the patient meet any 2 criteria? No. Patient's initial sepsis screen is negative. Does the patient have a suspected source of infection? No. Patient's initial sepsis screen is negative. Risk Assessment: Do you want to hurt yourself or someone else? Patient reports no desire to harm self or others. Onset of symptoms was March 06, 2024. 10:07 Acuity: JUNI 3 iw 10:07 Method Of Arrival: Wheelchair iw Historical: - Allergies: 10:08 PENICILLINS; iw - PMHx: 10:08 Brain bleed; CVA; 2018; brain aneurysm; Atrial Fib; Dementia; TIA; iw - Immunization history:: Adult Immunizations up to date. - Infectious Disease History:: Denies. - Social history:: Smoking status: Patient denies any tobacco usage or history of. Screenin:07 [facility] ED Fall Risk Assessment (Adult) History of falling in the last 3 months, rs5 including since admission Yes- single mechanical fall (1 pt) Confusion or Disorientation No (0 pts) Intoxicated or Sedated No (0 pts) Impaired Gait Yes (1 pt) Mobility Assist Device Used Yes (1 pt) Altered Elimination No (0 pt) Score/Fall Risk Level 3 or more points = High Risk Oriented to surroundings, Maintained a safe environment, Educated pt \T\ family on fall prevention, incl call for assistance when getting out of bed, Hourly rounding (assess needs \T\ fall precautionary measures) done. Abuse screen: Denies threats or abuse. Nutritional screening: No deficits noted. Tuberculosis screening: No symptoms or risk factors identified. Assessment: 10:07 General: Appears in no apparent distress. uncomfortable, Behavior is calm, cooperative. rs5 10:07 Pain: Complains of pain in left lower back Pain radiates to left lower leg Pain rs5 currently is 9 out of 10 on a pain scale. Quality of pain is described as aching, Is continuous. Neuro: Level of Consciousness is awake, alert, obeys commands, Oriented to person, place, time, situation. Cardiovascular: Patient's skin is warm and dry. Respiratory: Airway is patent Respiratory effort is even, unlabored, Respiratory pattern is regular, symmetrical. GI: Abdomen is round non-distended, Abd is soft and non tender X 4 quads. : EENT: No signs and/or symptoms were reported regarding the EENT system. Derm: Skin is intact, Skin is pink, warm \T\ dry. Musculoskeletal: Range of motion: intact in all extremities. 11:01 Reassessment: Patient and/or family updated on plan of care and expected duration. Pain rs5 level reassessed. Patient is alert, oriented x 3, equal unlabored respirations, skin warm/dry/pink. 12:10 Reassessment: Patient and/or family updated on plan of care and expected duration. Pain rs5 level reassessed. Patient is alert, oriented x 3, equal unlabored respirations, skin warm/dry/pink. 13:22 Reassessment: Patient and/or family updated on plan of care and expected duration. Pain rs5 level reassessed. Patient is alert, oriented x 3, equal unlabored respirations, skin warm/dry/pink. 14:31 Reassessment: Patient and/or family updated on plan of care and expected duration. Pain rs5 level reassessed. Patient is alert, oriented x 3, equal unlabored respirations, skin warm/dry/pink. 15:25 Reassessment: No changes from previously documented assessment. rs5 15:50 Reassessment: Patient and/or family updated on plan of care and expected duration. Pain rs5 level reassessed. Patient is alert, oriented x 3, equal unlabored respirations, skin warm/dry/pink. Vital Signs: 10:07 BP 157 / 110; Pulse 80; Resp 18; Pulse Ox 94% ; Weight 68.04 kg; Height 5 ft. 3 in. ; iw Pain 9/10; 10:15 BP 137 / 97; Pulse 79; Resp 17; Pulse Ox 95% on R/A; rs5 11:22 BP 135 / 83; Pulse 72; Resp 17; Temp 98(O); Pulse Ox 99% on R/A; rs5 14:01 BP 139 / 79; Pulse 71; Resp 17; Pulse Ox 97% on R/A; rs5 15:51 BP 144 / 80; Pulse 77; Resp 16; Temp 97.9(O); Pulse Ox 98% on R/A; rs5 10:07 Body Mass Index 26.57 (68.04 kg, 160.02 cm) iw 10:07 Pain Scale: Adult iw ED Course: 09:57 Patient arrived in ED. mg5 09:58 Zain Kiser PA is PHCP. cp 09:58 Chiquita Plunkett MD is Attending Physician. cp 10:07 Patient has correct armband on for positive identification. Placed in gown. Bed in low rs5 position. Call light in reach. Side rails up X2. 10:07 No provider procedures requiring assistance completed. rs5 10:08 Triage completed. iw 10:08 Arm band placed on. iw 10:10 Fernando Hermosillo, RN is Primary Nurse. rs5 10:15 Inserted saline lock: 22 gauge in right antecubital area, using aseptic technique. rs5 Blood collected. Flushed with 10 mL NS. 15:04 CT Abd/Pelvis - IV Contrast Only In Process Unspecified. EDMS 15:55 Provided Education on: discharge instructions . rs5 16:00 IV discontinued, intact, bleeding controlled, No redness/swelling at site. Pressure rs5 dressing applied. Administered Medications: 10:40 Drug: morphine IVP or IV 2 mg IVP once over 4 mins Route: IVP; Infused Over: 4 mins; rs5 Site: right antecubital; 11:05 Follow up: Response: No adverse reaction; Pain is decreased rs5 10:40 Drug: NS 0.9% IV 500 ml 500 ml IV at 1 bolus once; to be given as a bolus over 60 rs5 minutes Volume: 500 ml; Route: IV; Rate: 1 bolus; Site: right antecubital; 11:12 Follow up: Response: No adverse reaction; IV Status: Completed infusion; IV Intake: rs5 500ml 11:20 Drug: fentaNYL (PF) IVP 25 mcg IVP once Route: IVP; Site: right antecubital; rs5 11:41 Follow up: Response: No adverse reaction; Pain is decreased rs5 14:10 Drug: Rocephin IV 1 grams IV at calculated rate once; Given slow IV push per pharmacy rs5 instructions Route: IV; Rate: calculated rate; Site: right antecubital; 14:20 Follow up: Response: No adverse reaction; IV Status: Completed infusion; IV Intake: [id number] Medication: 10:15 VIS not applicable for this client. rs5 Intake: 11:12 IV: 500ml; Total: 500ml. rs5 14:20 IV: 50ml; Total: 550ml. rs5 Outcome: 15:35 Discharge ordered by . cp 16:00 Patient left the ED. rs5 16:00 Discharged to home via wheelchair, with family, rs5 16:00 Condition: stable 16:00 Discharge instructions given to patient, family, Instructed on discharge instructions, follow up and referral plans. medication usage, Demonstrated understanding of instructions, follow-up care, medications, Prescriptions given X 2, Signatures: Dispatcher [employer] EDMS Solange Platt RN RN iw Zain Kiser PA PA cp Sotelo, Ricky, RN RN rs5 Vashti Narayanan mg5 Corrections: (The following items were deleted from the chart) 10:09 10:07 Resp 18bpm; Pulse Ox 94%; 68.04 kg; Height 5 ft. 3 in.; BMI: 26.5; Pain 9/10, iw Adult; iw 17:02 16:09 Patient left the ED. rs5 rs5 17:03 17:02 BP 133 / 81; Pulse 72bpm; Resp 17bpm; Pulse Ox 99% RA; rs5 rs5 17:06 11:22 BP 135 / 83; Pulse 72bpm; Resp 17bpm; Pulse Ox 99% RA; rs5 rs5 17:06 15:51 BP 144 / 80; Pulse 77bpm; Resp 16bpm; Pulse Ox 98% RA; rs5 rs5
--- NOTE | 2024-03-07 15:36 | EDPHYS ---
Physician Documentation [facility] Name: Kari Grace Age: 83 yrs Sex: Female : 1940 Arrival Date: 03/07/2024 Time: 09:52 Bed 16 Private MD: ED Physician Chiquita Plunkett HPI: 03/07 10:25 This 83 yrs old Female presents to ER via Wheelchair with complaints of Back Pain. cp 10:25 The patient presents with pain that is acute, with no known mechanism of injury. The cp symptoms are located in the low back. The pain radiates to the left leg. 10:25 Associated signs and symptoms: Pertinent positives: abdominal pain, nausea, weakness, cp Pertinent negatives: chest pain, constipation, fever, headache, incontinence, numbness, vomiting. Modifying factors: the patient symptoms are aggravated by movement. Historical: - Allergies: 10:08 PENICILLINS; iw - PMHx: 10:08 Brain bleed; CVA; 2018; brain aneurysm; Atrial Fib; Dementia; TIA; iw - Immunization history:: Adult Immunizations up to date. - Infectious Disease History:: Denies. - Social history:: Smoking status: Patient denies any tobacco usage or history of. ROS: 10:30 Eyes: Negative for injury, pain, redness, and discharge, cp 10:30 Constitutional: Negative for body aches, chills, fever, 10:30 Abdomen/GI: Positive for abdominal pain, of the left upper quadrant, 10:30 Back: Positive for pain at rest, pain with movement, of the left low back, 10:30 MS/extremity: Positive for pain, of the left leg, Exam: 10:33 Constitutional: The patient appears in no acute distress, alert, awake, cp non-diaphoretic, non-toxic, well developed, well nourished, uncomfortable, 10:33 Head/Face: Normocephalic, atraumatic. cp 10:33 Eyes: Periorbital structures: appear normal, Conjunctiva: normal, no exudate, no injection, Sclera: no appreciated abnormality, Lids and lashes: appear normal, bilaterally, 10:33 ENT: External ear(s): are unremarkable, Nose: is normal, Mouth: Lips: moist, Oral mucosa: moist, Posterior pharynx: Airway: no evidence of obstruction, patent, 10:33 Chest/axilla: Inspection: normal, 10:33 Cardiovascular: Rate: normal, Rhythm: regular, 10:33 Respiratory: the patient does not display signs of respiratory distress, Respirations: normal, no use of accessory muscles, no retractions, labored breathing, is not present, Breath sounds: are clear throughout, no decreased breath sounds, no stridor, no wheezing, 10:33 Abdomen/GI: Inspection: abdomen appears normal, Bowel sounds: active, all quadrants, Palpation: soft, in all quadrants, moderate abdominal tenderness, in the left upper quadrant, 10:33 Back: pain, that is moderate, of the left low back and left mid back, ROM is painful, with all movement, 10:33 Neuro: Orientation: to person, place \T\ time. Mentation: is normal, Motor: moves all fours, Vital Signs: 10:07 BP 157 / 110; Pulse 80; Resp 18; Pulse Ox 94% ; Weight 68.04 kg; Height 5 ft. 3 in. ; iw Pain 9/10; 10:15 BP 137 / 97; Pulse 79; Resp 17; Pulse Ox 95% on R/A; rs5 11:22 BP 135 / 83; Pulse 72; Resp 17; Temp 98(O); Pulse Ox 99% on R/A; rs5 14:01 BP 139 / 79; Pulse 71; Resp 17; Pulse Ox 97% on R/A; rs5 15:51 BP 144 / 80; Pulse 77; Resp 16; Temp 97.9(O); Pulse Ox 98% on R/A; rs5 10:07 Body Mass Index 26.57 (68.04 kg, 160.02 cm) iw 10:07 Pain Scale: Adult iw MDM: 10:11 Medical Screening Exam initiated cp 11:00 Differential diagnosis: Ureterolithiasis vertebral fracture, sciatica, spinal stenosis, cp diverticulitis. 15:35 Data reviewed: vital signs, nurses notes, lab test result(s), radiologic studies, CT cp scan, and as a result, I will discharge patient. 03/07 10:22 Order name: CBC with Diff; Complete Time: 14:04 cp 03/07 15:22 Interpretation: Normal except: RBC 3.72; HGB 11.4; HCT 35.5. cp 03/07 10:22 Order name: CMP; Complete Time: 14:04 cp 03/07 10:22 Order name: Lipase; Complete Time: 14:04 cp 03/07 10:22 Order name: Urinalysis w/ reflexes; Complete Time: 14:04 cp 03/07 12:01 Order name: Urine Culture EDMS 03/07 14:04 Order name: CT Abd/Pelvis - IV Contrast Only; Complete Time: 15:21 cp 03/07 10:22 Order name: IV Saline Lock; Complete Time: 11:01 cp 03/07 10:22 Order name: Labs collected and sent; Complete Time: 11:01 cp Administered Medications: 10:40 Drug: morphine IVP or IV 2 mg IVP once over 4 mins Route: IVP; Infused Over: 4 mins; rs5 Site: right antecubital; 11:05 Follow up: Response: No adverse reaction; Pain is decreased rs5 10:40 Drug: NS 0.9% IV 500 ml 500 ml IV at 1 bolus once; to be given as a bolus over 60 rs5 minutes Volume: 500 ml; Route: IV; Rate: 1 bolus; Site: right antecubital; 11:12 Follow up: Response: No adverse reaction; IV Status: Completed infusion; IV Intake: rs5 500ml 11:20 Drug: fentaNYL (PF) IVP 25 mcg IVP once Route: IVP; Site: right antecubital; rs5 11:41 Follow up: Response: No adverse reaction; Pain is decreased rs5 14:10 Drug: Rocephin IV 1 grams IV at calculated rate once; Given slow IV push per pharmacy rs5 instructions Route: IV; Rate: calculated rate; Site: right antecubital; 14:20 Follow up: Response: No adverse reaction; IV Status: Completed infusion; IV Intake: [id number] Disposition Summary: 03/07/24 15:35 Discharge Ordered Notes: Location: Home cp Problem: new cp Symptoms: have improved cp Condition: Stable cp Diagnosis - UTI/ Urinary tract infection, site not specified cp - Sciatica, left side cp Followup: cp - With: Private Physician - When: 2 - 3 days - Reason: Recheck today's complaints Discharge Instructions: - Discharge Summary Sheet cp - Sciatica cp - Urinary Tract Infection, Adult cp Forms: - Medication Reconciliation Form cp - Antibiotic Education cp - Prescription Opioid Use cp - Patient Portal Instructions cp - Leadership Thank You Letter cp Prescriptions: - Celebrex 100 mg Oral capsule - take 1 capsule ORAL route every 12 hours As needed take with food; 20 capsule; cp Refills: 0, Product Selection Permitted - cefpodoxime 100 mg Oral Tablet - take 1 tablet ORAL route every 12 hours for 10 days take with food; 20 tablet; cp Refills: 0, Product Selection Permitted Signatures: Dispatcher [employer] EDKY Solange Platt RN RN Zain Kiser PA PA cp Fernando Hermosillo RN RN rs5 Corrections: (The following items were deleted from the chart) 10:22 10:22 CBC+H.LAB.BRZ ordered. EDMS EDMS 10:22 10:22 COMPREHENSIVE METABOLIC PANEL+C.LAB.BRZ ordered. EDMS EDMS 10:22 10:22 LIPASE+C.LAB.BRZ ordered. EDMS EDMS 10:22 10:22 Urinalysis+U.LAB.BRZ ordered. EDMS EDMS 03/08 15:14 15:13 Back: Positive for pain at rest, pain with movement, of the left low back, cp cp 15:14 15:13 Abdomen/GI: Positive for abdominal pain, of the left upper quadrant, cp cp 15:14 15:13 Constitutional: Negative for body aches, chills, fever, cp cp 15:14 15:13 MS/extremity: Positive for pain, of the left leg, cp cp 15:14 15:13 Eyes: Negative for injury, pain, redness, and discharge, cp cp
[2024-03-07 18:35] VITALS: BP 137/97; O2SAT 95
== END 2024-03-07 16:09 | disposition home or self-care (01) ==
LOC: ER 09:52
DX: N39.0 Urinary tract infection, site not specified (principal); M54.32 Sciatica, left side; I48.91 Unspecified atrial fibrillation; Z86.73 Personal history of transient ischemic attack (TIA), and cerebral infarction without residual deficits
CPT/HCPCS: 96361; 87088; 85025; 81001; 87086; 36415; 87077; 87186; 83690; 80053; 74177; 96375; 96374; 99284; Q9967; J3010; J2270; J7040; J0696